=== PATIENT | female | born 1970 | race Caucasian/White ===

== ENCOUNTER 2024-08-18 23:38 | Emergency (ER) | payer OTHER, SELFPAY ==
--- NOTE | 2024-08-18 | ECG_ITS ---
Test Reason : TACHYCARDIA Blood Pressure : / mmHG Vent. Rate : 123 BPM Atrial Rate : 123 BPM P-R Int : 132 ms QRS Dur : 086 ms QT Int : 298 ms P-R-T Axes : 035 -13 021 degrees QTc Int : 426 ms Sinus tachycardia Cannot rule out Anterior infarct , age undetermined Abnormal ECG When compared with ECG of 02-FEB-2019 07:34, Premature ventricular complexes are no longer Present Minimal criteria for Anterior infarct are now Present ST no longer depressed in Inferior leads ST no longer depressed in Anterior leads Referred By: Generic ED Physician Electronically Signed By:Howard Durham
[2024-08-18 23:43] VITALS: BP 128/77; BP 150/90; PULSE 123; PULSE 96; RESP 20; TEMP 36.9; O2SAT 96; O2SAT 98; BMI 29.4
[2024-08-19] LABS: Basophils Percent Auto 0.4 % (0-2); Eosinophils Percent Auto 0.2 % (0-4); Hematocrit 37.7 % (37.0-47.0); Imm Gran Abs Auto 0.02 X10*3/uL (0.00-0.03); Imm Gran Pct Auto 0.2 % (0.0-0.4); Lymphocytes Absolute Auto 1.5 X10*3/uL (1.2-4.9); Lymphocytes Percent Auto 18.4 % (20-40); MANUAL DIFF FLAG NO; Mean Corpuscular HGB Conc 31.8 g/dl (31.0-35.0); Mean Corpuscular Hemoglobin 26.5 pg (27.0-33.0); Mean Corpuscular Volume 83.4 fL (80.0-98.0); Mean Platelet Volume 10.9 fL (9.4-12.3); Monocytes Absolute Auto 0.5 X10*3/uL (0.1-1.2); Monocytes Percent Auto 5.8 % (2-11); Platelet Count 272 X10*3/uL (160-400); Red Blood Count 4.52 X10*6/uL (4.20-5.50); Red Cell Distribution Width 14.5 % (11.0-16.0)
--- NOTE | 2024-08-19 00:15 | ED_ITS ---
HPI - Abdominal Pain General Chief Complaint: Abdominal Pain Stated Complaint: abd pain, diff breathing Time Seen by Provider: 08/19/24 00:13 Source: patient Mode of arrival: EMS Limitations: no limitations History of Present Illness ED Provider: maggi BUSTILLOS narrative: Patient with history of anxiety comes here with nonspecific multiple complaints of diffuse abdominal pain no nausea no vomiting patient is very anxious on arrival Related Data Previous Rx's ?Medication ?Instructions ?Recorded dicyclomine 20 mg tablet 20 mg PO TID #20 tabs 08/19/24 Allergies Allergy/AdvReac Type Severity Reaction Status Date / Time No Known Allergies Allergy Verified 08/18/24 23:47 [No Known Allergies*] Review of Systems Review of Systems Yes all other systems are reviewed and are negative [facility] Social History Social History Smoked in Last 30 Days: No Use of substances other than those prescribed or required for medical reasons: No Advance Directives: No Advance Directives Information Provided: Yes Do you have a plan to hurt others: No Plan Patient : No Physical Exam ED Vital Signs: Vital Signs - 24 hr 08/18/24 23:43 Temperature 98.4 F Pulse Rate 123 H Respiratory Rate 20 Blood Pressure 128/77 Pulse Oximetry 96 Oxygen Delivery Method Room Air BMI result Body Mass Index 29.4 Appearance: Alert. Oriented X3. No acute distress. Very anxious Eyes: No pallor or icterus ENT: Pharynx normal. Oral Mucosa moist Neck: Normal inspection. Neck supple. CVS: Normal heart rate and rhythm. Pulses normal. Respiratory: No respiratory distress. Equal air entry bilateral, no wheezing/rales/rhonchi Abdomen: Soft and nontender. Bowel sounds are present, no mass palpable, no CVA tenderness Skin: Skin warm and dry. Normal skin color. Normal skin turgor. Extremities: No lower extremity edema. No calf tenderness Neuro: Oriented X 3. No motor deficit. Medical Decision Making Medical Decision Making [facility] Narrative: Patient nonspecific complaints anxiety likely the cause workup negative for acute Differential Diagnosis Differential Diagnoses: The differential diagnosis associated with the presentation includes Lab Data [facility] Lab Attestation statement: I reviewed the patient's lab results. 08/18/24 23:52 08/18/24 23:52 Labs: Lab Results 08/18/24 08/19/24 Range/Units 23:52 03:58 WBC 8.0 (4.8-10.8) X10*3/uL RBC 4.52 (4.20-5.50) X10*6/uL Hgb 12.0 (12.0-16.0) g/dl Hct 37.7 (37.0-47.0) % MCV 83.4 (80.0-98.0) fL MCH 26.5 L (27.0-33.0) pg MCHC 31.8 (31.0-35.0) g/dl RDW 14.5 (11.0-16.0) % Plt Count 272 (160-400) X10*3/uL MPV 10.9 (9.4-12.3) fL Immature Gran % (Auto) 0.2 (0.0-0.4) % Neut % (Auto) 75.0 H (45-73) % Lymph % (Auto) 18.4 L (20-40) % [place] % (Auto) 5.8 (2-11) % Eos % (Auto) 0.2 (0-4) % Baso % (Auto) 0.4 (0-2) % Lymph # (Auto) 1.5 (1.2-4.9) X10*3/uL [place] # (Auto) 0.5 (0.1-1.2) X10*3/uL Eos # (Auto) 0.0 (0.0-0.4) X10*3/uL Baso # (Auto) 0.0 (0.0-0.2) X10*3/uL Abs Immat Gran (auto) 0.02 (0.00-0.03) X10*3/uL Absolute Neuts (auto) 6.0 (2.0-8.3) x10*3/uL Absolute Nucleated RBC 0.000 (0.0-0.012) X10*3/uL Nucleated RBC % (auto) 0.0 (0.0-0.2) /100WBC Sodium 139 (135-145) mmol/L Potassium 5.0 (3.3-5.1) mmol/L Chloride 106 (96-108) mmol/L Carbon Dioxide 22 (22-29) mmol/L Anion Gap 16 (12-20) BUN 13 (9-16) mg/dL Creatinine 0.88 (0.5-1.4) mg/dL Estim Creat Clear Calc 78.3 Estimated GFR > 60 Random Glucose 107 (60-115) mg/dL Calcium 9.5 (8.4-10.2) mg/dL Total Bilirubin 0.5 (0.0-1.0) mg/dL AST 75 H (5-31) U/L ALT 32 H (0-31) U/L Alkaline Phosphatase 93 (39-117) U/L Troponin I High Sens 4.6 (<3.5-17.0) ng/L Total Protein 7.9 (6.5-8.0) g/dL Albumin 4.1 (3.5-5.0) g/dL Lipase 21 (8-78) U/L Urine Color Yellow Urine Appearance Clear Urine pH 6.5 (5.0-9.0) Ur Specific [place] >= 1.030 H (1.005-1.025) Urine Protein Negative (Neg-Trace) mg/dL Urine Glucose (UA) Negative (Negative) mg/dL Urine Ketones 80 (Negative) mg/dL Urine Blood Negative (Negative) Urine Nitrite Negative (Negative) Ur Leukocyte Esterase Negative (Negative) Influenza Type A (PCR) NEGATIVE (Negative) Influenza Type B (PCR) NEGATIVE (Negative) RSV RNA Qual (PCR) NEGATIVE (Negative) SARS-CoV-2 RNA (RT-PCR) NEGATIVE (Negative) Independent Interpretation I performed an independent interpretation of an: EKG Interpretation: Sinus tachycardia heart rate 123 beats per minute normal interval normal axis no acute ST-T changes no acute ischemia Medications Administered Discontinued Medications Generic Name Dose Route Start Last Admin Trade Name Freq PRN Reason Stop Dose Admin Dicyclomine HCl 20 mg 08/19/24 00:36 08/19/24 00:56 Dicyclomine Hcl 10 Mg Capsule PO 08/19/24 00:37 20 mg ONCE ONE Administration Sodium Chloride 1,000 mls @ 999 mls/hr 08/19/24 03:00 08/19/24 04:30 Ns IV 08/19/24 04:00 Infused .Q1H1M ONE Infusion Lorazepam 1 mg 08/19/24 00:36 08/19/24 00:56 Lorazepam 2 Mg/Ml Vial IVPUSH 08/19/24 00:37 1 mg STAT STA Administration Metoprolol Tartrate 5 mg 08/19/24 04:01 08/19/24 04:08 Metoprolol Tartrate 5 Mg/5 Ml Vial IVPUSH 08/19/24 04:02 Not Given ONCE ONE Protocol Discharge Plan Discharge Clinical Impression: Anxiety, Irritable bowel syndrome Patient Disposition: Home, Self-Care Instructions: Irritable Bowel Syndrome (ED), Anxiety (ED) Additional Instructions: take your medication for anxiety as prescribed Dicyclomine for abdominal pain Follow with your psychiatrist/PCP Prescriptions: New dicyclomine 20 mg tablet 20 mg PO TID Qty: 20 0RF Interventions: ED Discharge Assessment Last Done: 08/19/24 05:30 Discharge Date/Time: 08/19/24 05:31 Print Language: Bengali
[2024-08-19 00:20] LABS: Troponin-I High Sensitivity 4.6 ng/L (<3.5-17.0)
[2024-08-19 00:21] LABS: Alanine Aminotransferase 32 U/L (0-31); Albumin Level 4.1 g/dL (3.5-5.0); Alkaline Phosphatase 93 U/L (39-117); Anion Gap 16 (12-20); Aspartate Amino Transferase 75 U/L (5-31); Bilirubin Total 0.5 mg/dL (0.0-1.0); Blood Urea Nitrogen 13 mg/dL (9-16); Calcium 9.5 mg/dL (8.4-10.2); Carbon Dioxide 22 mmol/L (22-29); Chloride 106 mmol/L (96-108); Creatinine Clr Calc Pharmacy 78.3; Estimated Glomerular Filt Rate > 60; Glucose Random 107 mg/dL (60-115); Lipase 21 U/L (8-78); Sodium 139 mmol/L (135-145); Total Protein 7.9 g/dL (6.5-8.0)
--- OUTSIDE RECORDS SUMMARY | 2024-08-19 00:44 | XMS_ITS | Continuity of Care Document ---
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 Role Phone Gosia OCONNELL, Randy Cook Primary Care Physician Encounter [facility] Date(s): 11/20/23 - 02/27/24 [facility] [address] [address]- Attending Physician: Not on Staff, Attending MD Allergies, Adverse Reactions, Alerts No Known Allergies Immunizations Given and Recorded Vaccine Date Status Refusal Reason influenza virus vaccine, inactivated 07/24/23 Keith rded influenza virus vaccine, inactivated 06/30/22 Keith rded influenza virus vaccine, inactivated 07/04/21 Keith rded influenza virus vaccine, inactivated 07/03/19 Keith rded influenza virus vaccine, inactivated 06/23/18 Keith rded influenza virus vaccine, inactivated 06/08/17 Keith rded influenza virus vaccine, inactivated 06/14/16 Keith rded influenza virus vaccine, inactivated 1 06/27/15 Re corded influenza virus vaccine, inactivated 2 06/20/12 Gi rob influenza virus vaccine, inactivated 3 12/07/08 Gi rob zoster vaccine, inactivated 09/06/22 Recorded zoster vaccine, inactivated 04/13/22 Recorded [id number] bivalent booster vax 06/30/22 Recorded SARS-CoV-2 (COVID-19) mRNA BNT-162b2 vac 09/18/21 Given SARS-CoV-2 (COVID-19) mRNA-1273 vaccine 03/14/21 R ecorded SARS-CoV-2 (COVID-19) mRNA-1273 vaccine 02/14/21 R ecorded pneumococcal 23-valent vaccine 01/31/19 Recorded tetanus/diphtheria/pertussis, acel(Tdap) 02/14/17 Given Tet/Diphth/Acel, Pertussis (oldterm) 4 12/07/08 Gi rob 1Result Comment: [09/26/2015] ADMINISTERED AT [facility] 2Admin Note: VIS GIVEN-DATED 04/28/12 Administered at [facility] 3Admin Note: VIS GIVEN 4Admin Note: VIS GIVEN Medications .2% Nifedipine in 5% lidocaine .2% Nifedipine in 5% lidocaine, See Instructions, # 60 Gm, Refills 1, Tot. Refills 1, Maintenance, Apply pea size amount 3-4 times per day, 05/27/23 16:01:00 EDT, Supply, 167.6, cm, 05/27/23 15:30:00EDT, Height Start Date: 05/27/23 Status: Ordered benztropine 0.5 mg oral tablet TAKE 1 TABLET BY MOUTH TWICE A DAY Start Date: 05/08/21 Status: Ordered bisacodyl 5 mg oral delayed release tablet 1 tablet = 5 mg, By Mouth, Daily, PRN as needed for constipation, # 50 tablet, 1 Refills, Maintenance, 02/18/23 16:01:00 EDT, CR Tablet, [id number], Partial fill upon patient request if the prescription is for a schedule II opioid drug., 167.6... Start Date: 02/18/23 Status: Ordered FLUoxetine 20 mg oral capsule 20 mg, 1, capsule, By Mouth, Daily, # 30 capsule, Refills 0, Maintenance, 05/08/21 10:53:00 EDT, Partial fill upon patient request if the prescription is for a schedule II opioid drug. Start Date: 05/08/21 Status: Ordered fluticasone 50 mcg/inh nasal spray See Instructions, USE 2 SPRAYS IN EACH NOSTRIL DAILY, # 48 mL, 1 Refills, Maintenance, 08/24/22 16:57:00 EDT, [id number], 90, USE 2 SPRAYS IN EACH NOSTRIL DAILY, 167.6, cm, 07/23/22 13:04:00 EDT, Height Start Date: 08/24/22 Status: Ordered gabapentin 100 mg oral capsule 2, capsule, By Mouth, Daily at bedtime, # 60 capsule, Refills 11, Maintenance, 06/25/23 12:25:00 EDT, Route to Pharmacy Electronically, [id number], 167.6, cm, 05/27/23 15:30:00 EDT, Height Start Date: 06/25/23 Status: Ordered Milk of Magnesia 8% oral suspension 30 mL = 2.4 Gm, By Mouth, Daily at bedtime, PRN for constipation, # 300 mL, 1 Refills, Maintenance,02/18/23 16:01:00 EDT, Suspension, [id number], Partial fill upon patient request if the prescription is for a schedule II opioid drug., 167.6,... Start Date: 02/18/23 Status: Ordered omeprazole 40 mg oral enteric coated capsule 1 capsule, By Mouth, 2 times a day, # 180 capsule, 0 Refills, Maintenance, 12/05/23 8:29:00 EST, [id number], 167.6, cm, 08/29/23 11:50:00 EDT, Height, 77.2, kg, 07/25/23 13:46:00 EDT, Dry Weight Start Date: 12/05/23 Status: Ordered prazosin 1 mg oral capsule 1 mg, 1, capsule, By Mouth, Daily at bedtime, Refills 0, Maintenance, 05/08/21 10:52:00 EDT, Partial fill upon patient request if the prescription is for a schedule II opioid drug. Start Date: 05/08/21 Status: Ordered risperiDONE 3 mg oral tablet 3 mg, 1, tablet, By Mouth, Daily, # 30 tablet, Refills 0, Maintenance, 05/08/21 10:52:00 EDT, Partial fill upon patient request if the prescription is for a schedule II opioid drug. Start Date: 05/08/21 Status: Ordered Senna-Time 8.6 mg oral tablet 1 OR 2 TABLETS, By Mouth, Daily at bedtime, PRN NEEDED FOR CONSTIPATION, # 60 tablet, 5 Refills,Maintenance, 05/01/23 9:50:00 EDT, [id number], 167.6, cm, 02/18/23 15:20:00 EDT, Height Start Date: 05/01/23 Status: Ordered simvastatin 20 mg oral tablet 1, tablet, By Mouth, Daily at bedtime, # 90 tablet, Refills 1, Maintenance, 03/28/23 11:22:00 EDT, Route to Pharmacy Electronically, [id number], 167.6, cm, 02/18/23 15:20:00 EDT, Height Start Date: 03/28/23 Status: Ordered Problem List Condition Confirmation Course Effective Dates Status H ealth Status Informant Allergic rhinitis Confirmed Active Bilateral tubal ligation Confirmed 1999 Active Chronic constipation Confirmed Active Depression Confirmed Active 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, 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 Confirmed Active Diagnostic colonoscopy Confirmed Active Continuous epigastric pain Confirmed Active Family history of cancer: mom's sister, cancer, in 30s, unknown type Confirmed Active Family history of ovarian cancer: Mom's mom of this in her 60s 1 Confirmed Active Acid reflux disease 2 Confirmed Active Gastroparesis 3 Confirmed Active Glucose intolerance Confirmed Active H/O heartburn Confirmed Active Hyperlipidemia-isola justin without other CV risk Confirmed Active Intestinal metaplasia of gastric mucosa 4 Confirmed Active LBP - Low back pain Confirmed Active Lump or Mass in Breast 5 Confirmed 02/06/11 Active Obesity due to excess calories Confirmed Active Painful rectal bleeding 6 Confirmed 2011 Active *[facility]/CP- [facility] [phone][facility], active care coordination Confirmed Active Premature ovarian failure Confirmed Active 1Mother tested for BRCA1 and BRCA2, both negative. 2S/p EGD in 08/12 for heartburn and dysphagia, which was normal. Per GI, likely functional/nervous disorder. 3on gastric emptying study in 07/16 4on EGD in 09/15. Advise repeat EGD in 6 months for intestinal metaplasia mapping. - mammo negative; seen by CBC; Breast, left, 1:30 o???clock, 7.5 cm from nipple, ultrasoundguided core biopsy: - Benign breast tissue with dense stroma. 6colonoscopy 2012: normal/due again age 49 per report in [facility] Social History Social History Type Response Smoking Status Never smoker entered on: 12/31/13 Sex Female Patient Care team information Care Team Personnel Name: Randy Elise MD Position: [facility] Physician - Primary Care Member Role: PCP Address: Address: [address] [place] [address] [place] [address]- Care Team Related Persons Name: SUDHIR SOSA Address: home [address] [address] Name: ZEYNEP SOSA Address: home [address] [place] [address] Name: ZEYNEP SOSA Address: [place] [address] Name: NONE, PT STATES
--- OUTSIDE RECORDS SUMMARY | 2024-08-19 00:44 | XMS_ITS | Continuity of Care Document ---
Author Organization [facility] Address [address] [place] [address]- Care Team Providers Care Social Welfare Research Worker Name Role Phone Gosia OCONNELL, Randy Coko Primary Care Physician [facility]): [facility] - 08/06/24 [facility] [address] [place], [place] [phone] Attending Physician: Admtr, Jocelyn Allergies, Adverse Reactions, Alerts No Known Allergies Immunizations Given and Recorded Vaccine Date Status Refusal Reason influenza virus vaccine, inactivated 07/24/23 Keith rded influenza virus vaccine, inactivated 06/30/22 Keith rded influenza virus vaccine, inactivated 07/04/21 Kieth rded influenza virus vaccine, inactivated 07/03/19 Keith rded influenza virus vaccine, inactivated 06/23/18 Keith rded influenza virus vaccine, inactivated 06/08/17 Keith rded influenza virus vaccine, inactivated 06/14/16 Keith rded influenza virus vaccine, inactivated 1 06/27/15 Re corded influenza virus vaccine, inactivated 2 06/20/12 Gi rob influenza virus vaccine, inactivated 3 12/07/08 Gi rob zoster vaccine, inactivated 09/06/22 Recorded zoster vaccine, inactivated 04/13/22 Recorded [id number] bivalent booster vax 06/30/22 Recorded SARS-CoV-2 (COVID-19) mRNA BNT-162b2 vac 09/18/21 Given SARS-CoV-2 (COVID-19) mRNA-1273 vaccine 03/14/21 R ecorded SARS-CoV-2 (COVID-19) mRNA-1273 vaccine 02/14/21 R ecorded pneumococcal 23-valent vaccine 01/31/19 Recorded tetanus/diphtheria/pertussis, acel(Tdap) 02/14/17 Given Tet/Diphth/Acel, Pertussis (oldterm) 4 12/07/08 Gi rob 1Result Comment: [09/26/2015] ADMINISTERED AT [facility] 2Admin Note: VIS GIVEN-DATED 04/28/12 Administered at [facility] 3Admin Note: VIS GIVEN 4Admin Note: [...] Refills, Maintenance, 02/18/23 16:01:00 EDT, CR Tablet, [facility]/pharmacy #[id number], Partial fill upon patient request if the prescription is for a schedule II opioid drug., 167.6... Start Date: 02/18/23 Status: Ordered docusate sodium 100 mg oral capsule 100 mg, 1, capsule, By Mouth, 2 times a day, take twice a day to prevent constipation., # 60 capsule, Refills 11, Tot. Refills 11, Maintenance, 06/22/24 14:31:00 EDT, Route to Pharmacy Electronically, [facility]/pharmacy #[id number], Partial fill upon patient requ... Start Date: 06/22/24 Status: Ordered esomeprazole 40 mg oral enteric coated capsule 1 capsule = 40 mg, By Mouth, 2 times a day, Stop Omeprazole. Take on an emoty stomach., # 60 capsule, 6 Refills, Maintenance, 08/06/24 14:33:00 EDT, CR Capsule, [facility]/pharmacy #[id number], Partial fill upon patient request if the prescription is for a schedul... Start Date: 08/06/24 Status: Ordered FLUoxetine 20 mg oral capsule [...] Refills, Maintenance, 08/24/22 16:57:00 EDT, [id number], 90, USE 2 SPRAYS IN EACH NOSTRIL DAILY, 167.6, cm, 07/23/22 13:04:00 EDT, Height Start Date: 08/24/22 Status: Ordered gabapentin 100 mg oral capsule 2, capsule, By Mouth, Daily at bedtime, # 60 capsule, Refills 11, Maintenance, 06/25/23 12:25:00 EDT, Route to Pharmacy Electronically, [id number], 167.6, cm, 05/27/23 15:30:00 EDT, Height Start Date: 06/25/23 Status: Ordered Linzess 145 mcg oral capsule 1 capsule = 145 mcg, By Mouth, Daily, # 30 capsule, 6 Refills, Maintenance, 08/06/24 14:32:00 EDT, Capsule, [id number], Partial fill upon patient request if the prescription is for a scheduleII opioid drug., 167.6, cm, 08/06/24 14:22:00 EDT,... Start Date: 08/06/24 Status: Ordered Metamucil 3.4 gm/5.2 gm oral powder for reconstitution = 3.4 Gm, By Mouth, Daily, dissolve in 8 oz of fluid drink once a day to prevent constipation, # 570 Gm, 11 Refills, Maintenance, 06/22/24 14:31:00 EDT, [id number], Partial fill upon patient request if the prescription is for a schedule II op... Start Date: 06/22/24 Status: Ordered Milk of Magnesia 8% oral suspension 30 mL = 2.4 Gm, By Mouth, Daily at bedtime, PRN for constipation, # 300 mL, 1 Refills, Maintenance,02/18/23 16:01:00 EDT, Suspension, [id number], Partial fill upon patient request if the prescription is for a schedule II opioid drug., 167.6,... Start Date: 02/18/23 Status: Ordered omeprazole 40 mg oral enteric coated capsule 1 capsule, By Mouth, 2 times a day, # 180 capsule, 1 Refills, Maintenance, 06/22/24 14:37:00 EDT, [facility]/pharmacy #[id number], 167.6, cm, 06/22/24 13:58:00 EDT, Height, 77.2, kg, 07/25/23 13:46:00 EDT, Dry Weight Start Date: 06/22/24 Status: Ordered prazosin 1 mg oral capsule [...] 60 tablet, 5 Refills,Maintenance, 05/01/23 9:50:00 EDT, [facility] ST[id number], 167.6, cm, 02/18/23 15:20:00 EDT, Height Start Date: 05/01/23 Status: Ordered simvastatin 20 mg oral tablet 1, tablet, By Mouth, Daily at bedtime, # 90 tablet, Refills 1, Tot. Refills 1, Maintenance, 07/29/24 14:20:00 EDT, Route to Pharmacy Electronically, [facility]/pharmacy #[id number], 167.6, cm, 07/24/24 14:25:00 EDT, Height, 77.2, kg, 07/25/23 13:46:00 EDT, Dry Weight Start Date: 07/29/24 Status: Ordered Suprep Bowel Prep Kit oral liquid 177 mL, By Mouth, Once, Take the first 6 oz bottle the evening before colonoscopy, and the second 6oz bottle the morning of colonoscopy., # 354 mL, 0 Refills, Soft Stop, 08/06/24 14:44:00 EDT, [id number], Partial fill upon patient request if... 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 Active Diagnostic colonoscopy Confirmed Active Continuous epigastric pain Confirmed Active Family history of cancer: mom's sister, cancer, in 30's, unknown type Confirmed Active Family history of ovarian cancer: Mom's mom of this in her 60s 1 Confirmed Active Acid reflux disease 2 Confirmed Active GERD (gastroesophageal reflux disease) Confirmed Active Gastroparesis 3 Confirmed Active Glucose intolerance Confirmed Active H/O heartburn Confirmed Active Hyperlipidemia-isola justin without other CV risk Confirmed Active Intestinal metaplasia of gastric mucosa 4 Confirmed Active LBP - Low back pain Confirmed Active Lump or Mass in Breast 5 Confirmed 02/06/11 Active Obesity due to excess calories Confirmed Active Painful rectal bleeding 6 Confirmed 2011 Active [phone], active care coordination Confirmed Active Premature ovarian [...] Never smoker entered on: 12/31/13 Sex Female Note * Tomasa Brito: PERFORM, SIGN, VERIFY Event Display: Patient Education/Instruction Authored Date: [id number] [facility] Clinical Summary Person Information Visit Date 10/01/2018 10:20 AM Name SRINATH SOSA Age 48 Years 1970 12:00 AM PCP Randy Elise MD PCP Sex Female Race White Ethnicity Non-/Non- Language Mohawk You can now view a summary of your hospital visit from the comfort of your home through a free online portal called [employer] is a website that allows you to securely view your medical information including discharge summary, medications and follow-up visits. You can also send a secure electronic message to your doctor???s office to request appointments, renew medicationsor just ask a question. You can enroll at [email or web address] or register during your next office visit. Smoking can increase your chances of developing chronic health problems and can cause harmful effects to other family members in your house. If you smoke, you are strongly encouraged to quit. Please call the [employer] Smokers??? Helpline at 1-680-PRPVNOW (or ) or log on to [email or web address] for more information. The National Suicide Prevention Hotline is available 20/05 if you or someone you know needs to find a reason to keep living. By calling 8-234-152-xmzz (3435) you'll be connected to a skilled, trained counselor at a crisis center in your area. Reason for Visit: Allergy Info: No Known Medication Allergies Smoking Status Never smoker Vital Signs Height Weight BMI Blood Pressure / Temperature Pulse Rate Respiratory Rate 02 Sat Mode of Delivery / Medication Information Albuterol (Ventolin HFA 108 mcg/inh inhalation aerosol with adapter) 1 puff(s) Inhalation 4 times aday as needed for wheezing. Refills: 1. Cetirizine (ZyrTEC 10 mg oral tablet) 1 tab(s) Oral Daily as needed allergies for 30 Days. Refills:4. Diclofenac Topical (diclofenac 1% topical gel) 1 wayne Topically 4 times a day as needed for pain. apply to area of pain. Refills: 0. Fluoxetine (FLUoxetine 10 mg oral capsule) take 1 capsule by mouth once daily. Fluticasone Nasal (Flonase 50 mcg/inh nasal spray) 2 spray(s) Nares, Both twice a day. Refills: 0. Omeprazole (omeprazole 20 mg oral enteric coated capsule) 1 capsule Oral twice a day for 30 Days. Refills: 3. Phenylephrine Topical (Preparation H 0.25% rectal suppository) 1 unit Per rectum Daily for 7 Days. Refills: 1. Senna (Senna 8.6 mg oral tablet) 2 tab(s) Oral Daily at Bedtime as needed for constipation. Refills: 1. Simvastatin (simvastatin 20 mg oral tablet) 1 tab(s) Oral Daily at Bedtime for 30 Days. Refills: 11. Trazodone (traZODone 50 mg oral tablet) 1 tab(s) Oral Daily at Bedtime. Refills: 0. Trazodone (traZODone 50 mg oral tablet) take 1 tablet by mouth at bedtime if needed MAY REPEAT DOSEONE TIME IF NEEDED FOR INSOMNIA. Future Orders No future orders Orders Completed this Visit No visit orders documented Problem List Problem Painful rectal bleeding Lump or Mass in Breast Bilateral tubal ligation Allergic rhinitis Hyperlipidemia Glucose intolerance Developmental delay LBP - Low back pain Depression Obesity due to excess calories Premature ovarian failure Chronic constipation Diagnostic colonoscopy Epigastric pain H/O: Disorder Gastroesophageal reflux disease Family history of malignant neoplasm of ovary Family history of cancer Diagnosis Procedures No Procedures Documented If the following labs have been performed in the last year, the most recent result is displayed below. Diagnostic Results Lab Result Value Date Lead Hemoglobin A1C LDL HDL Triglycerides Total Cholesterol Disclaimer: The information provided is of a general nature and is intended to be used in conjunction with the recommendations and advice of your health care practitioner. Every effort has been made to ensure that the information provided is accurate and complete at the time it is provided to you however, as your needs change, or, as new information becomes available, different or additional instructions may be required. If you have questions, please consult with your primary care provider or pharmacist, as appropriate. This information is not intended to serve as substitution for assessment and evaluation by a qualified health care provider. If you do not have a primary care provider, you may find a [facility] provider by calling [facility] at [phone]. For information about the plan of care including goals and instructions for your diagnosis, please see the patient education orders section of this document. Patient Visit Summary: Future Appointments: Type Location Start [facility] Screening Mammo BB RAD 10/27/2018 3:15 PM 10/27/2018 3:30 PM Pending Follow-Up Instructions Patient Education Materials Additional Instructions: Patient Care team information Care Team Personnel Name: Gosia OCONNELL, Randy Cook Position: S Physician - Primary Care Member Role: PCP Address: Address: [address] [place] [address] [place] [address]- Care Team Related Persons Name: SUDHIR SOSA Address: home [address] [place] [address] [address] [place] [address] Name: ZEYNEP SOSA Address: home [address] [place] [address] Name: ZEYNEP SOSA Address: [place] [address] Name: NONE, PT STATES
--- OUTSIDE RECORDS SUMMARY | 2024-08-19 00:44 | XMS_ITS | Continuity of Care Document ---
Author Organization [facility] Address [address] [place] [address]- Care Team Providers Care Continuing Education Specialist Name Role Phone Gosia OCONNELL, Randy Cook Primary Care Physician [facility]20 - 01/19/21 [facility] [address] [place], [place] [address] Allergies, Adverse Reactions, Alerts No Known Medication Allergies Immunizations Given and Recorded Vaccine Date Status Refusal Reason tetanus/diphtheria/pertussis, acel(Tdap) 02/14/17 Given influenza virus vaccine, inactivated 1 06/27/15 Re corded influenza virus vaccine, inactivated 2 06/20/12 Gi rob influenza virus vaccine, inactivated 3 12/07/08 Gi rob Tet/Diphth/Acel, Pertussis (oldterm) 4 12/07/08 Gi rob 1Result Comment: [09/26/2015] ADMINISTERED AT [employer] 2Admin Note: VIS GIVEN-DATED 04/28/12 Administered at [facility] 3Admin Note: VIS GIVEN 4Admin Note: VIS GIVEN Medications benztropine 0.5 mg oral tablet 0.5 mg, 1, tablet, By Mouth, 2 times a day, # 60 tablet, Refills 1, Tot. Refills 1, Maintenance, 05/11/19 14:23:19 EDT, Route to Pharmacy Electronically, [id number], [facility]/pharmacy #[id number] Start Date: 05/11/19 Stop Date: 07/10/19 Status: Ordered diclofenac 1% topical gel 1 application, Topically, 4 times a day, # 100 Gm, 0 Refills, Maintenance, 05/11/19 14:14:25 EDT, Gel, 1 application Topically 4 times a day Start Date: 05/11/19 Status: Ordered FLUoxetine 10 mg oral capsule 10 mg, 1, capsule, By Mouth, Daily, Take in addition to Fluoxetine 20mg daily (total =30mg daily).,# 30 capsule, Refills 5, Tot. Refills 5, 09/14/19 13:00:46 EST, Route to Pharmacy Electronically, [id number], [facility]/pharmacy #[id number] Start Date: 09/14/19 Status: Ordered FLUoxetine 20 mg oral capsule 20 mg, 1, capsule, By Mouth, Daily, Take with Fluoxetine 10mg capsule (total dose = 30mg daily)., #30 capsule, Refills 5, Tot. Refills 5, Maintenance, 09/14/19 13:00:56 EST, Route to Pharmacy Electronically, [id number], [facility]... Start Date: 09/14/19 Status: Ordered LORazepam 0.5 mg oral tablet 1 tablet = 0.5 mg, By Mouth, 3 times a day, PRN for anxiety, 0 Refills, Maintenance, 02/16/19 12:54:45 EDT, Tablet Start Date: 02/16/19 Status: Ordered MiraLax oral powder for reconstitution = 17 Gm, By Mouth, Daily, dissolve in water before taking, # 527 Gm, 1 Refills, Maintenance, 05/11/19 14:11:05 EDT, REC Powder, 17 Gm By Mouth Daily,Instr:dissolve in water before taking Start Date: 05/11/19 Status: Ordered NuLYTELY with Flavor Packs oral powder for reconstitution See Instructions, 240 mL By Mouth Every 15 minutes, # 4,000 mL, 0 Refills, Maintenance, 08/10/20 12:23:00 EDT, [id number], 240 mL By Mouth Every 15 minutes, 165.1, cm, 07/12/20 15:23:00 EDT, Height, 63.1, kg, 08/21/19 12:21:00 EDT, Dry Weight Start Date: 08/10/20 Status: Ordered NuLYTELY with Flavor Packs oral powder for reconstitution See Instructions, 1 glass every 15-30 minutes until finished, # 4,000 mL, 0 Refills, Maintenance, 12/17/19 9:00:00 EST, [facility]/pharmacy #[id number], 1 glass every 15-30 minutes until finished, 165.1, cm, 12/14/19 15:03:00 EST, Height, 63.1, kg, 08/21/19 12:21:... Start Date: 12/17/19 Status: Ordered NuLYTELY with Flavor Packs oral powder for reconstitution See Instructions, 240 mL By Mouth Every 15 minutes, # 4,000 mL, 0 Refills, Maintenance, 12/10/19 16:20:00 EST, [facility]/pharmacy #[id number], 240 mL By Mouth Every 15 minutes, 167.6, cm, 12/10/19 12:18:00 EST, Height, 63.1, kg, 08/21/19 12:21:00 EDT, Dry Weight Start Date: 12/10/19 Status: Ordered omeprazole 40 mg oral enteric coated capsule 1 capsule = 40 mg, By Mouth, 2 times a day, # 180 capsule, 1 Refills, Maintenance, 10/12/20 8:13:00EST, EC Capsule, [facility]/pharmacy #[id number], 167.6, cm, 08/23/20 12:36:00 EDT, Height, 63.1, kg, 08/21/19 12:21:00 EDT, Dry Weight Start Date: 10/12/20 Stop Date: 04/10/21 Status: Ordered Preparation H 0.25% rectal suppository 1 unit, Rectally, Daily, # 7 units, 1 Refills, Maintenance, 03/04/18 16:07:27 EDT, 1 unit Rectally Daily,x7 days Start Date: 03/04/18 Stop Date: 03/18/18 Status: Ordered risperiDONE 3 mg oral tablet See Instructions, TAKE 1/2 TABLET BY MOUTH TWICE A DAY, # 30 tablet, Refills 2, Tot. Refills 2, Maintenance, 09/14/19 13:00:55 EST, Instructions Replace Required Details, Route to Pharmacy Electronically, [id number], [facility]/phar... Start Date: 09/14/19 Status: Ordered simvastatin 20 mg oral tablet 20 mg, 1, tablet, By Mouth, Daily at bedtime, for 90 days, # 90 tablet, Refills 0, Tot. Refills 0, Hard Stop 03/12/21 9:06:00 EDT, 12/12/20 9:06:00 EST, Route to Pharmacy Electronically, [facility]/pharmacy#[id number], 167.6, cm, 08/23/20 12:36:00 EDT, Height, 63... Start Date: 12/12/20 Stop Date: 03/12/21 Status: Ordered Ventolin HFA 108 mcg/inh inhalation aerosol with adapter 1 puffs, Inhalation, 4 times a day, PRN for wheezing, # 8 Gm, 1 Refills, Maintenance, 05/04/20 15:51:00 EDT, Aerosol, [facility]/pharmacy #[id number], 165.1, cm, 04/07/20 10:09:00 EDT, Height, 63.1, kg, 08/21/19 12:21:00 EDT, Dry Weight Start Date: 05/04/20 Status: Ordered ZyrTEC 10 mg oral tablet 1 tablet = 10 mg, By Mouth, Daily, PRN allergies, # 30 tablet, 4 Refills, Maintenance, 03/04/18 15:52:09 EDT, Tablet Start Date: 03/04/18 Stop Date: 08/01/18 Status: Ordered Problem List Condition Effective Dates Status Health Status Inform ant Allergic rhinitis(Confirmed) Active Bilateral tubal ligation(Confirmed) 1999 Active Chronic constipation(Confirmed) Active Depression(Confirmed) Active Developmental delay- mild--l jose independently, 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) Active Diagnostic colonoscopy(Confirmed) Active Continuous epigastric pain(Confirmed) Active Family history of cancer: mo dayanara's sister, cancer, in 30's, unknown type(Confirmed) Active Family history of ovarian ca ncer: Mom's mom of this in her 60s(Confirmed) 1 Active Acid reflux disease(Confirmed) 2 Active Gastroparesis(Confirmed) 3 Active Glucose intolerance(Confirmed) Active H/O heartburn(Confirmed) Active Hyperlipidemia-isolated with out other CV risk(Confirmed) Active Intestinal metaplasia of gas tric mucosa(Confirmed) 4 Active LBP - Low back pain(Confirmed) Active Lump or Mass in Breast(Confirmed) 02/06/11 Active Obesity due to excess calories(Confirmed) Active Painful rectal bleeding(Confirmed) 2011 Active Premature ovarian failure(Confirmed) Active 1Mother tested for BRCA1 and BRCA2, [...] Benign breast tissue with dense stroma. 6colonoscopy 2011: normal/due again age 49 per report in [facility] Social History Social History Type Response Smoking Status Never smoker entered on: 12/31/13 Sex Female
--- OUTSIDE RECORDS SUMMARY | 2024-08-19 00:44 | XMS_ITS | Continuity of Care Document ---
Author Organization [facility] Address [address] [place] [address]- Care Team Providers Care Public Relations Sales Marketing Name Role Phone Gosia OCONNELL, Randy Cook Primary Care Physician [phone] [facility] 03[facility]12[facility]22 - 04/11/22 [facility] [address] [place], [place] [address] Allergies, Adverse Reactions, Alerts No Known Medication Allergies Immunizations Given and Recorded Vaccine Date Status Refusal Reason SARS-CoV-2 (COVID-19) mRNA BNT-162b2 vac 09/18/21 Given influenza virus vaccine, inactivated 07/04/21 Keith rded influenza virus vaccine, inactivated 1 06/27/15 Re corded influenza virus vaccine, inactivated 2 06/20/12 Gi rob influenza virus vaccine, inactivated 3 12/07/08 Gi rob SARS-CoV-2 (COVID-19) mRNA-1273 vaccine 03/14/21 R ecorded SARS-CoV-2 (COVID-19) mRNA-1273 vaccine 02/14/21 R ecorded tetanus/diphtheria/pertussis, acel(Tdap) 02/14/17 Given Tet/Diphth/Acel, Pertussis (oldterm) 4 12/07/08 Gi rob 1Result Comment: [09/26/2015] ADMINISTERED AT [employer] 2Admin Note: VIS GIVEN-DATED 04/28/12 Administered at [facility] 3Admin Note: VIS GIVEN 4Admin Note: VIS GIVEN Medications benztropine 0.5 mg oral tablet TAKE 1 TABLET BY MOUTH TWICE A DAY Start Date: 05/08/21 Status: Ordered FLUoxetine 20 mg oral capsule 20 mg, 1, capsule, By Mouth, Daily, # 30 capsule, Refills 0, Maintenance, 05/08/21 10:53:00 EDT, Partial fill upon patient request if the prescription is for a schedule II opioid drug. Start Date: 05/08/21 Status: Ordered fluticasone 50 mcg/inh nasal spray See Instructions, USE 2 SPRAYS IN EACH NOSTRIL DAILY, # 48 mL, 1 Refills, [id number], 90, USE 2 SPRAYS IN EACH NOSTRIL DAILY, 167.6, cm, 11/02/21 9:05:00 EST, Height Start Date: 12/11/21 Status: Ordered gabapentin 100 mg oral capsule 200 mg, 2, capsule, By Mouth, Daily at bedtime, # 60 capsule, Refills 3, Tot. Refills 3, Maintenance, 02/05/22 17:16:00 EDT, Route to Pharmacy Electronically, [facility]/pharmacy #[id number], Dose INCREASED 02/05/22. Please disregard last prescription, 167.6, cm, 0... Start Date: 02/05/22 Status: Ordered omeprazole 40 mg oral enteric coated capsule 1 capsule, By Mouth, 2 times a day, # 180 capsule, 0 Refills, [id number], 167.6, cm, 01/25/22 9:20:00 EDT, Height Start Date: 03/23/22 Status: Ordered prazosin 1 mg oral capsule [...] PRN NEEDED FOR CONSTIPATION, # 60 tablet, 1 Refills,[id number], 167.6, cm, 01/25/22 9:20:00 EDT, Height Start Date: 03/25/22 Status: Ordered simvastatin 20 mg oral tablet 1, tablet, By Mouth, Daily at bedtime, # 90 tablet, Refills 1, Route to Pharmacy Electronically, [id number], 167.6, cm, 01/25/22 9:20:00 EDT, Height Start Date: 03/23/22 Status: Ordered Problem List Condition Effective Dates Status Health Status Inform ant Allergic rhinitis(Confirmed) Active Bilateral tubal ligation(Confirmed) 1999 Active Chronic constipation(Confirmed) Active Depression(Confirmed) Active Developmental delay- mild--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 independently, 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) Active Diagnostic colonoscopy(Confirmed) Active Continuous epigastric pain(Confirmed) Active Family history of cancer: mo m's sister, cancer, in 30's, unknown type(Confirmed) Active Family history of ovarian ca ncer: Mom's mom of this in her 60s(Confirmed) 1 Active Acid reflux disease(Confirmed) 2 Active Gastroparesis(Confirmed) 3 Active Glucose intolerance(Confirmed) Active H/O heartburn(Confirmed) Active Hyperlipidemia-isolated with out other CV risk(Confirmed) Active Intestinal metaplasia of gas tric mucosa(Confirmed) 4 Active LBP - Low back pain(Confirmed) Active Lump or Mass in Breast(Confirmed) 5 02/06/11 Active Obesity due to excess calories(Confirmed) [...]
--- OUTSIDE RECORDS SUMMARY | 2024-08-19 00:45 | XMS_ITS | Continuity of Care Document ---
Author Organization [facility] Address [address] [place] [address]- Care Team Providers Care Remote Control Mirror Installer Name Role Phone Randy Elise MD Primary Care Physician Encounter [facility] Date(s): 11/16/21 - 12/21/21 [facility] [address] [place] [address]- Attending Physician: Randy Elise MD Admitting Physician: Randy Elise MD Allergies, Adverse Reactions, Alerts No Known Medication [...] Gi rob 1Result Comment: [09/26/2015] ADMINISTERED AT [employer] 2Admin Note: VIS GIVEN-DATED 04/28/12 Administered at [facility] 3Admin Note: VIS GIVEN 4Admin Note: [...] NOSTRIL DAILY, # 48 mL, 1 Refills, [facility], 90, USE 2 SPRAYS IN EACH NOSTRIL DAILY, 167.6, cm, 11/02/21 9:05:00 EST, Height Start Date: 12/11/21 Status: Ordered omeprazole 40 mg oral enteric coated capsule 1 capsule, By Mouth, 2 times a day, # 180 capsule, 1 Refills, [facility]192, 167.6, cm, 09/29/21 11:56:00 EST, Height Start Date: 10/16/21 Status: Ordered prazosin 1 mg oral capsule 1 mg, 1, capsule, By Mouth, Daily at bedtime, Refills 0, Maintenance, 05/08/21 10:52:00 EDT, Partial fill upon patient request if the prescription is for a schedule II opioid drug. Start Date: 05/08/21 Status: Ordered psyllium 3.4 g/5.4 g oral powder for reconstitution = 1.7 Gm, By Mouth, Daily, # 283 Gm, 1 Refills, Maintenance, 03/28/21 9:37:00 EDT, REC Powder, [facility]/pharmacy #[id number], Partial fill upon patient request if the prescription is for a schedule II opioid drug., 167.6, cm, 03/28/21 8:40:00 EDT, Height, 63.1,... Start Date: 03/28/21 Status: Ordered risperiDONE 3 mg oral tablet 3 mg, 1, tablet, By Mouth, Daily, # 30 tablet, Refills 0, Maintenance, 05/08/21 10:52:00 EDT, Partial fill upon patient request if the prescription is for a schedule II opioid drug. Start Date: 05/08/21 Status: Ordered Senna 8.6 mg oral tablet 1 or 2 tablets, By Mouth, Daily at bedtime, PRN, # 60 tablet, Refills 1, Tot. Refills 1, Maintenance, Constipation, 09/18/21 13:57:00 EST, Route to Pharmacy Electronically, [facility]/pharmacy #0843 Tablet,Partial fill upon patient request if the prescripti... Start Date: 09/18/21 Status: Ordered SENNA 8.6 MG TABLET SENNA 8.6 MG TABLET, 1 OR 2 TABLETS, By Mouth, Daily at bedtime, PRN, # 60 tablet, 1 Refills, 167.6, cm, 11/02/21 9:05:00 EST, Height Start Date: 12/11/21 Status: Ordered simvastatin 20 mg oral tablet 1, tablet, By Mouth, Daily at bedtime, # 90 tablet, Refills 1, Route to Pharmacy Electronically, [facility], 167.6, cm, 11/02/21 9:05:00 EST, Height Start Date: 11/03/21 Status: Ordered Ventolin HFA 108 mcg/inh inhalation aerosol with adapter 1 puffs, Inhalation, 4 times a day, PRN for wheezing, # 8 Gm, 1 Refills, Maintenance, 05/04/20 15:51:00 EDT, Aerosol, [facility]/pharmacy #[id number], 165.1, cm, 04/07/20 10:09:00 EDT, Height, 63.1, kg, 08/21/19 12:21:00 EDT, Dry Weight Start Date: 05/04/20 Status: Ordered Problem List Condition Effective Dates [...]
--- OUTSIDE RECORDS SUMMARY | 2024-08-19 00:45 | XMS_ITS | Continuity of Care Document ---
Author Organization [facility] Address [address] [place] [address]- Care Team Providers Care Hematology Technologist Name Role Phone Gosia OCONNELL, Randy Cook Primary Care Physician [facility] Date[facility]s): 07/23/22 - 08/22/22 [facility] [address] [place] [address]- Attending Physician: Admtr, Ar8 Allergies, Adverse Reactions, Alerts No Known Medication Allergies Immunizations Given and Recorded Vaccine Date Status Refusal Reason influenza virus vaccine, inactivated 06/30/22 Keith rded [...] 3 12/07/08 Gi rob zoster vaccine, inactivated 04/13/22 Recorded SARS-CoV-2 (COVID-19) mRNA BNT-162b2 vac 09/18/21 Given SARS-CoV-2 (COVID-19) mRNA-1273 vaccine 03/14/21 R ecorded SARS-CoV-2 (COVID-19) mRNA-1273 vaccine 02/14/21 R ecorded pneumococcal 23-valent vaccine 01/31/19 Recorded tetanus/diphtheria/pertussis, acel(Tdap) 02/14/17 Given Tet/Diphth/Acel, Pertussis (oldterm) 4 12/07/08 Gi rob 1Result Comment: [09/26/2015] ADMINISTERED AT [employer] 2Ain Note: VIS GIVEN-DATED 04/28/12 Administered at [facility] 3Admin Note: VIS GIVEN 4Admin Note: [...] NOSTRIL DAILY, # 48 mL, 1 Refills, [facility] STORE 95679, 90, USE 2 SPRAYS IN EACH NOSTRIL DAILY, 167.6, cm, 11/02/21 9:05:00 EST, Height Start Date: 12/11/21 Status: Ordered gabapentin 100 mg oral capsule 200 mg, 2, capsule, By Mouth, Daily at bedtime, # 60 capsule, Refills 11, Tot. Refills 11, Maintenance, 06/11/22 12:04:00 EDT, Route to Pharmacy Electronically, [facility]/pharmacy #0843, Dose INCREASED 02/05/22. Please disregard last prescription, 167.6, cm,... Start Date: 06/11/22 Status: Ordered omeprazole 40 mg oral enteric coated capsule 1 capsule, By Mouth, 2 times a day, # 180 capsule, 0 Refills, Maintenance, 07/24/22 9:46:00 EDT, [facility] STORE [facility]2624, 167.6, cm, 07/23/22 13:04:00 EDT, Height Start Date: 07/24/22 Status: Ordered prazosin 1 mg oral capsule [...] NEEDED FOR CONSTIPATION, # 60 tablet, 1 Refills,Maintenance, 07/24/22 10:37:00 EDT, [facility], 167.6, cm, 07/23/22 13:04:00 EDT, Height Start Date: 07/24/22 Status: Ordered simvastatin 20 mg oral tablet 1, tablet, By Mouth, Daily at bedtime, # 90 tablet, Refills 1, Route to Pharmacy Electronically, [facility], 167.6, cm, 01/25/22 9:20:00 EDT, Height Start Date: 03/23/22 Status: Ordered Problem List Condition Confirmation Course [...] Painful rectal bleeding 6 Confirmed 2011 Active Premature ovarian failure Confirmed Active 1Mother [...] 12/31/13 Sex Female Patient Care team information Personnel Name: Gosia OCONNELL, Randy Cook Address: Address: [address] [place] [address] [place], [place] [address]
--- OUTSIDE RECORDS SUMMARY | 2024-08-19 00:45 | XMS_ITS | Continuity of Care Document ---
Author Organization [facility] Address [address] [place] [address]- Care Team Providers Care Political Cartoonist Name Role Phone Gosia OCONNELL, Randy Cook Primary Care Physician [phone] [facility] Date[facility] 04/07/20 - 05/07/20 [facility] [address] [place] [address]- [facility] Attending Physician: AdmJocelyn rosen Admitting Physician: AdmtrJocelyn Referring Physician: Admtr, Ar8 Allergies, Adverse Reactions, Alerts No Known Medication Allergies Immunizations Given and Recorded Vaccine Date Status Refusal Reason tetanus/diphtheria/pertussis, acel(Tdap) 02/14/17 Given influenza virus vaccine, inactivated 1 06/27/15 Re corded influenza virus vaccine, inactivated 2 06/20/12 Gi rob influenza virus vaccine, inactivated 3 12/07/08 Gi rob Tet/Diphth/Acel, Pertussis (oldterm) 4 12/07/08 Gi rob 1Result Comment: [09/26/2015] ADMINISTERED AT [facility] 2Admin Note: VIS GIVEN-DATED 04/28/12 Administered at [facility] 3Admin Note: VIS GIVEN 4Admin Note: VIS GIVEN Medications benztropine 0.5 mg oral tablet 0.5 mg, 1, tablet, By Mouth, 2 times a day, # 60 tablet, Refills 1, Tot. Refills 1, Maintenance, 05/11/19 14:23:19 EDT, Route to Pharmacy Electronically, [id number], [facility]/pharmacy #[id number] Start Date: 05/11/19 [...] 09/14/19 13:00:46 EST, Route to Pharmacy Electronically, [id number], [facility]/pharmacy #0843 Start Date: 09/14/19 Status: Ordered FLUoxetine 20 mg oral capsule 20 mg, 1, capsule, By Mouth, Daily, Take with Fluoxetine 10mg capsule (total dose = 30mg daily)., #30 capsule, Refills 5, Tot. Refills 5, Maintenance, 09/14/19 13:00:56 EST, Route to Pharmacy Electronically, [id number], [facility]... Start Date: 09/14/19 Status: Ordered LORazepam [...] mL, 0 Refills, Maintenance, 12/17/19 9:00:00 EST, [facility]/pharmacy #[id number], 1 glass every 15-30 minutes until finished, 165.1, cm, 12/14/19 15:03:00 EST, Height, 63.1, kg, 08/21/19 12:21:... Start Date: 12/17/19 Status: Ordered NuLYTELY with Flavor Packs oral powder for reconstitution See Instructions, 240 mL By Mouth Every 15 minutes, # 4,000 mL, 0 Refills, Maintenance, 12/10/19 16:20:00 EST, [facility]/pharmacy #0843, 240 mL By Mouth Every 15 minutes, 167.6, cm, 12/10/19 12:18:00 EST, Height, 63.1, kg, 08/21/19 12:21:00 EDT, Dry Weight Start Date: 12/10/19 Status: Ordered omeprazole 40 mg oral enteric coated capsule 1 capsule = 40 mg, By Mouth, Daily before breakfast, # 90 capsule, 3 Refills, Maintenance, :45:31 EST, EC Capsule Start Date: 09/02/19 Stop Date: 08/27/20 Status: Ordered Preparation H 0.25% rectal suppository [...] Replace Required Details, Route to Pharmacy Electronically, [id number], [facility]/phar... Start Date: 09/14/19 Status: Ordered simvastatin 20 mg oral tablet 20 mg, 1, tablet, By Mouth, Daily at bedtime, for 30 days, # 30 tablet, Refills 11, Tot. Refills 11, Hard Stop 04/07/21 8:11:00 EDT, 04/12/20 8:11:00 EDT, Route to Pharmacy Electronically, [facility]/pharmacy #[id number], 165.1, cm, 04/07/20 10:09:00 EDT, Height,... Start Date: 04/12/20 Stop Date: 04/07/21 Status: Ordered Ventolin HFA 108 mcg/inh inhalation aerosol with adapter 1 puffs, Inhalation, 4 times a day, PRN for wheezing, # 8 Gm, 1 Refills, Maintenance, 05/04/20 15:51:00 EDT, [facility]erosol, [facility], 165.1, cm, 04/07/20 10:09:00 EDT, Height, [...] of cancer: mo m's sister, cancer, in 30s, unknown type(Confirmed) Active Family history of ovarian [...]
--- OUTSIDE RECORDS SUMMARY | 2024-08-19 00:45 | XMS_ITS | Continuity of Care Document ---
Author Organization [facility] Address [address] [place] [address]- Care Team Providers Care Security System Engineer Name Role Phone Gosia OCONNELL, Randy Cook Primary Care Physician [phone] [facility] Date[facility]s): 06/27/24 - 07/27/24 [facility] [address] [place], [place] [phone] Allergies, Adverse Reactions, Alerts No Known Allergies [...] 09/06/22 Recorded zoster vaccine, inactivated 04/13/22 Recorded [id number] bivalent booster vax 06/30/22 Recorded SARS-CoV-2 (COVID-19) mRNA BNT-162b2 vac 09/18/21 Given SARS-CoV-2 (COVID-19) mRNA-1273 vaccine 03/14/21 R ecorded SARS-CoV-2 (COVID-19) mRNA-1273 vaccine 02/14/21 R ecorded pneumococcal 23-valent vaccine 01/31/19 Recorded tetanus/diphtheria/pertussis, acel(Tdap) 02/14/17 Given Tet/Diphth/Acel, Pertussis (oldterm) 12/07/08 Gi rob 1Result Comment: [09/26/2015] ADMINISTERED AT [facility] [employer] 2Ain Note: VIS GIVEN-DATED 04/28/12 Administered at [facility] 3Admin Note: VIS GIVEN 4Admin Note: [...] 02/18/23 16:01:00 EDT, CR Tablet, [facility]/pharmacy #[id number], Partial fill upon patient [...] EDT, Route to Pharmacy Electronically, [facility]/pharmacy #0843, Partial fill upon patient requ... Start Date: 06/22/24 Status: Ordered FLUoxetine 20 mg oral capsule [...] mL, 1 Refills, Maintenance, 08/24/22 16:57:00 EDT, [facility] STORE 01080, 90, USE 2 SPRAYS IN EACH NOSTRIL DAILY, 167.6, cm, 07/23/22 13:04:00 EDT, Height Start Date: 08/24/22 Status: Ordered gabapentin 100 mg oral capsule 2, capsule, By Mouth, Daily at bedtime, # 60 capsule, Refills 11, Maintenance, 06/25/23 12:25:00 EDT, Route to Pharmacy Electronically, [facility] STORE 61239, 167.6, cm, 05/27/23 15:30:00 EDT, Height Start Date: 06/25/23 Status: Ordered Metamucil 3.4 gm/5.2 gm oral powder for reconstitution = 3.4 Gm, By Mouth, Daily, dissolve in 8 oz of fluid drink once a day to prevent constipation, # 570 Gm, 11 Refills, Maintenance, 06/22/24 14:31:00 EDT, [facility]/pharmacy #0843, Partial fill upon patient request if the prescription is for a schedule II op... Start Date: 06/22/24 Status: Ordered Milk of Magnesia 8% oral suspension 30 mL = 2.4 Gm, By Mouth, Daily at bedtime, PRN for constipation, # 300 mL, 1 Refills, Maintenance,02/18/23 16:01:00 EDT, Suspension, [facility]/pharmacy #0843, Partial fill upon patient request if the prescription is for a schedule II opioid drug., 167.6,... Start Date: 02/18/23 Status: Ordered naproxen 500 mg oral tablet 1 tablet = 500 mg, By Mouth, 2 times a day, for 7 days, # 14 tablet, 0 Refills, Acute 07/31/24 14:46:00 EDT, 07/24/24 14:46:00 EDT, Tablet, [facility]/pharmacy #0843, Partial fill upon patient request if the prescription is for a schedule II opioid drug., 16... Start Date: 07/24/24 Stop Date: 07/31/24 Status: Ordered omeprazole 40 mg oral enteric coated capsule 1 capsule, By Mouth, 2 times a day, # 180 capsule, 1 Refills, Maintenance, 06/22/24 14:37:00 EDT, [facility], 167.6, cm, 06/22/24 13:58:00 EDT, Height, [...] 60 tablet, 5 Refills,Maintenance, 05/01/23 9:50:00 EDT, [facility] 220[facility], 167.6, cm, 02/18/23 15:20:00 EDT, Height Start Date: 05/01/23 Status: Ordered simvastatin 20 mg oral tablet 1, tablet, By Mouth, Daily at bedtime, # 90 tablet, Refills 1, Maintenance, 03/12/24 15:43:00 EDT, Route to Pharmacy Electronically, [facility], 167.6, cm, 08/29/23 11:50:00 EDT, Height, 77.2, kg, 07/25/23 13:46:00 EDT, Dry Weight Start Date: 03/12/24 Status: Ordered Problem List Condition Confirmation Course [...] rectal bleeding 6 Confirmed 2011 Active *[facility]/CP- [place] [phone]/[facility], active care coordination Confirmed Active Premature ovarian [...] Personnel Name: Gosia OCONNELL, Randy Cook Position: [facility] Physician - Primary Care Member Role: PCP Address: Address: [address] [place] [address] [place] [address]- [place] Care Team Related Persons Name: SUDHIR SOSA Address: home [address] [facility] [facility] [address] [place], [place] Name: ZEYNEP SOSA Address: home [place], [place] Name: ZEYNEP SOSA Address: home [address] [place], [place] Name: NONE, PT STATES
--- OUTSIDE RECORDS SUMMARY | 2024-08-19 00:45 | XMS_ITS | Continuity of Care Document ---
Author Organization [facility] Address [address] [place] [address]- Care Team Providers Care Skin Drier Name Role Phone Randy Elise MD Primary Care Physician [facility]s): 02/18[facility]23 - 03/20/23 [facility] [address] [place], [place] [address] Attending Physician: Admtr, Jocelyn Allergies, Adverse Reactions, Alerts No Known Medication Allergies Immunizations Given and Recorded Vaccine Date Status Refusal Reason [id number] bivalent booster vax 06/30/22 Recorded influenza virus vaccine, inactivated 06/30/22 Keith rded [...] Gi rob 1Result Comment: [09/26/2015] ADMINISTERED AT [facility] 2Admin Note: VIS GIVEN-DATED 04/28/12 Administered at [facility] 3Admin Note: VIS GIVEN 4Admin Note: VIS GIVEN Medications benztropine 0.5 mg oral tablet TAKE 1 TABLET BY MOUTH TWICE A DAY Start Date: 05/08/21 Status: Ordered bisacodyl 5 mg oral delayed release tablet 1 tablet = 5 mg, By Mouth, Daily, PRN as needed for constipation, # 50 tablet, 1 Refills, Maintenance, 02/18/23 16:01:00 EDT, CR Tablet, [facility]/pharmacy #0843, Partial fill upon patient [...] Refills, Maintenance, 08/24/22 16:57:00 EDT, [facility], 90, USE 2 SPRAYS IN EACH NOSTRIL DAILY, 167.6, cm, 07/23/22 13:04:00 EDT, Height Start Date: 08/24/22 Status: Ordered gabapentin 100 mg oral capsule 200 mg, 2, capsule, By Mouth, Daily at bedtime, # 60 capsule, Refills 11, Tot. Refills 11, Maintenance, 06/11/22 12:04:00 EDT, Route to Pharmacy Electronically, [facility]/pharmacy #0843, Dose INCREASED 02/05/22. Please disregard last prescription, 167.6, cm,... Start Date: 06/11/22 Status: Ordered Milk of Magnesia 8% oral suspension 30 mL = 2.4 Gm, By Mouth, Daily at bedtime, PRN for constipation, # 300 mL, 1 Refills, Maintenance,02/18/23 16:01:00 EDT, Suspension, [facility]/pharmacy #0843, Partial fill upon patient request if the prescription is for a schedule II opioid drug., 167.6,... Start Date: 02/18/23 Status: Ordered omeprazole 40 mg oral enteric coated capsule 1 capsule, By Mouth, 2 times a day, # 180 capsule, 0 Refills, Maintenance, 02/04/23 15:01:00 EDT, [facility], 167.6, cm, 12/11/22 8:04:00 EST, Height Start Date: 02/04/23 Status: Ordered prazosin 1 mg oral capsule [...] FOR CONSTIPATION, # 60 tablet, 1 Refills,Maintenance, 02/04/23 15:01:00 EDT, [facility] STORE 79505, 167.6, cm, 12/11/22 8:04:00 EST, Height Start Date: 02/04/23 Status: Ordered simvastatin 20 mg oral tablet 1, tablet, By Mouth, Daily at bedtime, # 90 tablet, Refills 1, Tot. Refills 1, 12/04/22 13:56:00 EST, Route to Pharmacy Electronically, [facility]/pharmacy #[id number], 167.6, cm, 09/27/22 11:25:00 EST, Height Start Date: 12/04/22 Status: Ordered Problem List Condition Confirmation Course [...] VERIFY Event Display: Patient Education/Instruction Authored Date: [id number] [facility] Clinical Summary Person Information Visit Date 10/01/2018 10:20 AM Name SRINATH SOSA Age 48 Years 1970 12:00 AM PCP Gosia OCONNELL, Randy Cook PCP Sex Female Race White Ethnicity Non-/Non- Language Thai You can now view a summary of your hospital visit from the comfort of your home through a free online portal called [employer]. [employer] is a website that allows you to securely view your medical information including discharge summary, medications and follow-up visits. You can also send a secure electronic message to your doctor???s office to request appointments, renew medicationsor just ask a question. You can enroll at [email or web address] or register during your next office visit. Smoking can increase your chances of developing chronic health problems and can cause harmful effects to other family members in your house. If you smoke, you are strongly encouraged to quit. Please call the [place] Smokers??? Helpline at 6-172-SGSUNOW (or ) or log on to [email or web address]ywire for more information. The National Suicide Prevention Hotline is available 20/05 if you or someone you know needs to find a reason to keep living. By calling 3-447-817-ovnr (6212) you'll be connected to a skilled, trained [...] primary care provider, you may find a [facility] provider by calling [facility] at [phone]. For information about the plan of care including goals and instructions for your diagnosis, please see the patient education orders section of this document. Patient Visit Summary: Future Appointments: Type Location [facility] Screening Mammo [facility] RAD 10/27/2018 3:15 PM 10/27/2018 3:30 PM Pending Follow-Up Instructions Patient Education Materials Additional Instructions: Patient Care team information Care Team Personnel Name: Randy Elise MD Position: S Physician - Primary Care Member Role: PCP Address: Address: [address] [place] [address] [place] [address]- Care Team Related Persons Name: SUDHIR SOSA Address: home [address] [facility] [address] [place], [place] Name: ZEYNEP SOSA Address: home [address] [place], [place] Name: ZEYNEP SOSA Address: home UNKNOWN [place], [place] Name: NONE, PT STATES
--- OUTSIDE RECORDS SUMMARY | 2024-08-19 00:45 | XMS_ITS | Continuity of Care Document ---
Author Organization [facility] Address [address] [place] [address]- Care Team Providers Care Type Copyist Name Role Phone Gosia OCONNELL, Randy Cook Primary Care Physician [facility]20 - 01/22/20 [facility] [address] [place] [address]- [facility] Attending Physician: Admtr, Ar8 Allergies, Adverse Reactions, Alerts No Known Medication Allergies Immunizations Given and Recorded Vaccine Date Status Refusal Reason tetanus/diphtheria/pertussis, acel(Tdap) 02/14/17 Given influenza virus vaccine, inactivated 1 06/27/15 Re corded influenza virus vaccine, inactivated 2 06/20/12 Gi rob influenza virus vaccine, inactivated 3 12/07/08 Gi rob Tet/Diphth/Acel, Pertussis (oldterm) 4 12/07/08 Gi rob 1Result Comment: [09/26/2015] ADMINISTERED AT [employer] 2Admin Note: VIS GIVEN-DATED 04/28/12 Administered at [facility] 3Admin Note: VIS GIVEN 4Admin Note: VIS GIVEN Medications benztropine 0.5 mg oral tablet 0.5 mg, 1, tablet, By Mouth, 2 times a day, # 60 tablet, Refills 1, Tot. Refills 1, Maintenance, 05/11/19 14:23:19 EDT, Route to Pharmacy Electronically, [id number], [facility]/pharmacy #[id number] Start Date: 05/11/19 Stop Date: 07/10/19 [...] 09/14/19 13:00:46 EST, Route to Pharmacy Electronically, [id number], [facility]/pharmacy #[id number] Start Date: 09/14/19 Status: Ordered FLUoxetine 20 mg oral capsule 20 mg, 1, capsule, By Mouth, Daily, Take with Fluoxetine 10mg capsule (total dose = 30mg daily)., #30 capsule, Refills 5, Tot. Refills 5, Maintenance, 09/14/19 13:00:56 EST, Route to Pharmacy Electronically, [id number], [facility]... Start Date: 09/14/19 Status: Ordered LORazepam [...] mL, 0 Refills, Maintenance, 12/17/19 9:00:00 EST, [facility], 1 glass every 15-30 minutes until finished, 165.1, cm, 12/14/19 15:03:00 EST, Height, 63.1, kg, 08/21/19 12:21:... Start Date: 12/17/19 Status: Ordered NuLYTELY with Flavor Packs oral powder for reconstitution See Instructions, 240 mL By Mouth Every 15 minutes, # 4,000 mL, 0 Refills, Maintenance, 12/10/19 16:20:00 EST, [facility]/pharmacy #[id number], 240 mL By Mouth Every 15 [...] Replace Required Details, Route to Pharmacy Electronically, [id number], [facility]/phar... Start Date: 09/14/19 Status: Ordered Ventolin HFA 108 mcg/inh inhalation aerosol with adapter 1 puffs, Inhalation, 4 times a day, PRN for wheezing, # 8 Gm, 1 Refills, Maintenance, 02/23/19 11:02:41 EDT, Aerosol Start Date: 02/23/19 Status: Ordered ZyrTEC 10 mg oral tablet 1 tablet = 10 mg, By Mouth, Daily, PRN allergies, # 30 tablet, 4 Refills, Maintenance, 03/04/18 15:52:09 EDT, Tablet Start Date: 03/04/18 Stop Date: 08/01/18 Status: Ordered Problem List Condition Effective Dates Status Health Status Inform ant Allergic rhinitis(Confirmed) Active Bilateral tubal ligation(Confirmed) 2000 Active Chronic constipation(Confirmed) Active Depression(Confirmed) Active Developmental [...]
--- OUTSIDE RECORDS SUMMARY | 2024-08-19 00:45 | XMS_ITS | Continuity of Care Document ---
Author Organization [facility] Address [address] [place] [address]- Care Team Providers Care Board Turner Name Role Phone Gosia OCONNELL, Randy Cook Primary Care Physician [facility] Date[facility]): 08[facility]23 - 09/28/23 [facility] [address], [place] [address] Attending Physician: AdmJocelyn rosen Admitting Physician: AdmtrJocelyn Referring Physician: Admtr, Ar8 Allergies, Adverse Reactions, Alerts No Known Allergies [...] 09/06/22 Recorded zoster vaccine, inactivated 04/13/22 Recorded [id number] bivalent booster vax 06/30/22 Recorded SARS-CoV-2 (COVID-19) mRNA BNT-162b2 vac 09/18/21 Given SARS-CoV-2 (COVID-19) mRNA-1273 vaccine 03/14/21 R ecorded SARS-CoV-2 (COVID-19) mRNA-1273 vaccine 02/14/21 R ecorded pneumococcal 23-valent vaccine 01/31/19 Recorded tetanus/diphtheria/pertussis, acel(Tdap) 02/14/17 Given Tet/Diphth/Acel, Pertussis (oldterm) 4 12/07/08 Gi rob 1Result Comment: [09/26/2015] ADMINISTERED AT [facility] 2Admin Note: VIS GIVEN-DATED 04/28/12 Administered at [facility] 3Admin Note: VIS GIVEN 4Admin [...] Maintenance, 02/18/23 16:01:00 EDT, CR Tablet, [facility]/pharmacy #[id number], Partial fill upon patient [...] Refills, Maintenance, 08/24/22 16:57:00 EDT, [facility], 90, USE 2 SPRAYS IN EACH NOSTRIL DAILY, 167.6, cm, 07/23/22 13:04:00 EDT, Height Start Date: 08/24/22 Status: Ordered gabapentin 100 mg oral capsule 2, capsule, By Mouth, Daily at bedtime, # 60 capsule, Refills 11, Maintenance, 06/25/23 12:25:00 EDT, Route to Pharmacy Electronically, [facility] 64257, 167.6, cm, 05/27/23 15:30:00 EDT, Height Start Date: 06/25/23 Status: Ordered Milk of Magnesia 8% oral suspension 30 mL = 2.4 Gm, By Mouth, Daily at bedtime, PRN for constipation, # 300 mL, 1 Refills, Maintenance,02/18/23 16:01:00 EDT, Suspension, [facility]/pharmacy #[id number], Partial fill upon patient request if the prescription is for a schedule II opioid drug., 167.6,... Start Date: 02/18/23 Status: Ordered omeprazole 40 mg oral enteric coated capsule 1 capsule, By Mouth, 2 times a day, # 180 capsule, 1 Refills, Maintenance, 05/20/23 14:10:00 EDT, [facility] 89289, 167.6, cm, 05/06/23 11:25:00 EDT, Height Start Date: 05/20/23 Status: Ordered prazosin 1 mg oral capsule [...] 5 Refills,Maintenance, 05/01/23 9:50:00 EDT, [facility], 167.6, cm, 02/18/23 15:20:00 EDT, Height Start Date: 05/01/23 Status: Ordered simvastatin 20 mg oral tablet 1, tablet, By Mouth, Daily at bedtime, # 90 tablet, Refills 1, Maintenance, 03/28/23 11:22:00 EDT, Route to Pharmacy Electronically, [facility], 167.6, cm, 02/18/23 15:20:00 EDT, Height Start [...] history of cancer: mom's sister, cancer, in s, unknown type Confirmed Active Family history of [...] team information Care Team Personnel Name: Gosia OCONENLL, Randy Cook Position: [facility] Physician - Primary Care Member Role: PCP Address: Address: [address] [facility] [place] [address]- [place] Care Team Related Persons Name: SUDHIR SOSA Address: home [address] [facility] [address] [place] [address] Name: ZEYNEP SOSA Address: home [address] [place] [address] Name: ZEYNEP SOSA Address: home [place]KNOWN [place], [place] Name: NONE, PT STATES
--- OUTSIDE RECORDS SUMMARY | 2024-08-19 00:45 | XMS_ITS | Continuity of Care Document ---
Author Organization [facility] Address [address] [place] [address]- Care Team Providers Care Retail Area Manager Name Role Phone Randy Elise MD Primary Care Physician [facility]): 05/08/21 - 06/07/21 [facility] [address] [place], [place] [address] Attending Physician: Admtr, Jocelyn Allergies, Adverse Reactions, Alerts No Known Medication Allergies Immunizations Given and Recorded Vaccine Date Status Refusal Reason SARS-CoV-2 (COVID-19) mRNA-1273 vaccine 03/14/21 R ecorded SARS-CoV-2 (COVID-19) mRNA-1273 vaccine 02/14/21 R ecorded tetanus/diphtheria/pertussis, acel(Tdap) 02/14/17 Given influenza virus vaccine, inactivated 1 06/27/15 Re corded influenza virus vaccine, inactivated 2 06/20/12 Gi rob influenza virus vaccine, inactivated 3 12/07/08 Gi rob Tet/Diphth/Acel, Pertussis (oldterm) 4 12/07/08 Gi rob 1Result Comment: [09/26/2015] ADMINISTERED AT [facility] 2Admin Note: VIS GIVEN-DATED 04/28/12 Administered at [facility] 3Admin Note: VIS GIVEN 4Admin Note: VIS GIVEN Medications benztropine 0.5 mg oral tablet TAKE 1 TABLET BY MOUTH TWICE A DAY Start Date: 05/08/21 Status: Ordered Flonase 50 mcg/inh nasal spray 1 sprays, Nares, Both, 2 times a day, # 16 Gm, 2 Refills, Maintenance, 03/28/21 9:37:00 EDT, [id number], Partial fill upon patient request if the prescription is for a schedule II opioid drug., 1 sprays Nares, Both 2 times a day, 167.6,... Start Date: 03/28/21 Status: Ordered FLUoxetine 20 mg oral capsule 20 mg, 1, capsule, By Mouth, Daily, # 30 capsule, Refills 0, Maintenance, 05/08/21 10:53:00 EDT, Partial fill upon patient request if the prescription is for a schedule II opioid drug. Start Date: 05/08/21 Status: Ordered MiraLax oral powder for reconstitution = 17 Gm, By Mouth, Daily, PRN Constipation, dissolve in water before taking, # 255 Gm, 1 Refills, Maintenance, 03/28/21 9:38:00 EDT, REC Powder, [facility]/pharmacy #[id number], Partial fill upon patient request if the prescription is for a schedule II opioid drug... Start Date: 03/28/21 Status: Ordered omeprazole 40 mg oral enteric coated capsule 1 capsule = 40 mg, By Mouth, 2 times a day, # 180 capsule, 0 Refills, Maintenance, 04/10/21 8:13:00EDT, EC Capsule, [id number], 167.6, cm, 08/23/20 12:36:00 EDT, Height, 63.1, kg, 08/21/19 12:21:00 EDT, Dry Weight Start Date: 04/10/21 Stop Date: 07/09/21 Status: Ordered prazosin 1 mg oral capsule [...] Refills, Maintenance, 03/28/21 9:37:00 EDT, REC Powder, [id number], Partial fill upon patient request [...] opioid drug. Start Date: 05/08/21 Status: Ordered simvastatin 20 mg oral tablet 1, tablet, By Mouth, Daily at bedtime, # 90 tablet, Refills 1, Tot. Refills 0, Maintenance, 03/28/21 9:34:00 EDT, Route to Pharmacy Electronically, [facility], 167.6, cm, 03/28/21 8:40:00 EDT, Height, 63.1, kg, 08/21/19 12:21:00 EDT, Dry Weight Start Date: 03/28/21 Status: Ordered Ventolin HFA 108 mcg/inh inhalation aerosol with adapter 1 puffs, Inhalation, 4 times a day, PRN for wheezing, # 8 Gm, 1 Refills, Maintenance, 05/04/20 15:51:00 EDT, Aerosol, [facility]/pharmacy #[id number], 165.1, cm, 04/07/20 10:09:00 EDT, [...]
--- OUTSIDE RECORDS SUMMARY | 2024-08-19 00:45 | XMS_ITS | Continuity of Care Document ---
Author Organization [facility] Address [address] [place] [address]- Care Team Providers Care Office Nurse Practitioner Name Role Phone Gosia OCONNELL, Randy Cook Primary Care Physician Encounter [facility] Date(s): 07/24/24 - 07/31/24 [facility] [address] [place] [address]- Attending Physician: Lydia Smiley MD Allergies, Adverse Reactions, Alerts No Known [...] 09/06/22 Recorded zoster vaccine, inactivated 04/13/22 Recorded [id number] bivalent booster vax 06/30/22 Recorded SARS-CoV-2 (COVID-19) mRNA BNT-162b2 vac 09/18/21 Given SARS-CoV-2 (COVID-19) mRNA-1273 vaccine 03/14/21 R ecorded SARS-CoV-2 (COVID-19) mRNA-1273 vaccine 02/14/21 R ecorded pneumococcal 23-valent vaccine 01/31/19 Recorded tetanus/diphtheria/pertussis, acel(Tdap) 02/14/17 Given Tet/Diphth/Acel, Pertussis (oldterm) 4 12/07/08 Gi rob 1Result Comment: [09/26/2015] ADMINISTERED AT [facility] 2Admin Note: VIS GIVEN-DATED 04/28/12 Administered at [facility] 3Admin Note: VIS GIVEN 4Admin [...] Refills, Maintenance, 02/18/23 16:01:00 EDT, CR Tablet, [facility]/pharmacy #[id number], Partial fill upon patient request if the prescription is for a schedule II opioid drug., 167.6... Start Date: 02/18/23 Status: Ordered docusate sodium 100 mg oral capsule 100 mg, 1, capsule, By Mouth, 2 times a day, take twice a day to prevent constipation., # 60 capsule, Refills 11, Tot. Refills 11, Maintenance, 06/22/24 14:31:00 EDT, Route to Pharmacy Electronically, [facility]/pharmacy #[id number], Partial fill upon patient requ... Start [...] mL, 1 Refills, Maintenance, 08/24/22 16:57:00 EDT, [facility] STORE 12940, 90, USE 2 SPRAYS IN EACH NOSTRIL DAILY, 167.6, cm, 07/23/22 13:04:00 EDT, Height Start Date: 08/24/22 Status: Ordered gabapentin 100 mg oral capsule 2, capsule, By Mouth, Daily at bedtime, # 60 capsule, Refills 11, Maintenance, 06/25/23 12:25:00 EDT, Route to Pharmacy Electronically, [facility] STORE 21170, 167.6, cm, 05/27/23 15:30:00 EDT, Height Start Date: 06/25/23 Status: Ordered Metamucil 3.4 gm/5.2 gm oral powder for reconstitution = 3.4 Gm, By Mouth, Daily, dissolve in 8 oz of fluid drink once a day to prevent constipation, # 570 Gm, 11 Refills, Maintenance, 06/22/24 14:31:00 EDT, [facility]/pharmacy #[id number], Partial fill upon patient request if the prescription is for a schedule II op... Start Date: 06/22/24 Status: Ordered Milk of Magnesia 8% oral suspension 30 mL = 2.4 Gm, By Mouth, Daily at bedtime, PRN for constipation, # 300 mL, 1 Refills, Maintenance,02/18/23 16:01:00 EDT, Suspension, [facility]/pharmacy #[id number], Partial fill upon patient request if the prescription is for a schedule II opioid drug., 167.6,... Start Date: 02/18/23 Status: Ordered omeprazole 40 mg oral enteric coated capsule 1 capsule, By Mouth, 2 times a day, # 180 capsule, 1 Refills, Maintenance, 06/22/24 14:37:00 EDT, [facility]/pharmacy #[id number], 167.6, cm, 06/22/24 13:58:00 EDT, Height, [...] 5 Refills,Maintenance, 05/01/23 9:50:00 EDT, [facility], 167.6, cm, 02/18/23 15:20:00 EDT, Height Start Date: 05/01/23 Status: Ordered simvastatin 20 mg oral tablet 1, tablet, By Mouth, Daily at bedtime, # 90 tablet, Refills 1, Tot. Refills 1, Maintenance, 07/29/24 14:20:00 EDT, Route to Pharmacy Electronically, [facility]/pharmacy #[id number], 167.6, cm, 07/24/24 14:25:00 EDT, Height, 77.2, kg, 07/25/23 13:46:00 EDT, Dry Weight Start Date: 07/29/24 Status: Ordered Problem List Condition Confirmation Course [...] bleeding 6 Confirmed 2011 Active *BHN/CCA/ONECARE/CP- Franc[place] [phone]/Health [facility], active care coordination Confirmed Active Premature ovarian [...] again age 49 per report in [facility] Vital Signs Most recent to oldest [Reference Range]: 1 Height 167.6 cm (07/24/24 2:25 PM) Oxygen Saturation [94-100 %] 99 % (07/24/24 2:25 PM) Pulse Rate [55-90 bpm] 120 bpm *H* (07/24/24 2:25 PM) Blood Pressure [90-138/55-84 mm Hg] 129/ 79mm Hg (07/24/24 2:25 PM) Respiratory Rate [16-30 br/min] 18 br/mi n (07/24/24 2:25 PM) Temperature [96.8-100.4 DegF] 98.8 DegF (07/24/24 2:25 PM) Mode of Delivery (Oxygen) Room air (07/24/24 2:25 PM) Blood pressure sites Arm, left (07/24/24 2:25 PM) Temperature Route Temporal (07/24/24 2:25 PM) Social History Social History Type Response Smoking Status Never smoker entered on: 12/31/13 Sex Female Patient Care team information Care Team Personnel Name: Gosia OCONNELL, Randy Cook Position: S Physician - Primary Care Member Role: PCP Address: Address: [address] [place] [address] [place] [address]- Care Team Related Persons Name: SUDHIR SOSA Address: home [address] [facility] [address] [place], [place] Name: ZEYNEP SOSA Address: home UNKNOWN [place], [place] Name: ZEYNEP SOSA Address: home [address] [place], [place] Name: NONE, PT STATES
--- OUTSIDE RECORDS SUMMARY | 2024-08-19 00:45 | XMS_ITS | Continuity of Care Document ---
Author Organization [facility] Address [address] [place] [address] [address] [place] [address]- Care Team Providers Care Roadway Technician Name Role Phone Gosia OCONNELL, Randy Cook Primary Care Physician [phone] [facility] Date(s): 06/27/23 - 07/27/[address] [place] [address]- Attending Physician: Jocelyn Mcclendon Admitting Physician: Jocelyn Mcclendon Referring Physician: AdmtrJocelyn Allergies, Adverse Reactions, Alerts No Known Allergies Immunizations Given and Recorded Vaccine Date Status Refusal Reason [id number] bivalent booster vax 06/30/22 Recorded influenza virus vaccine, inactivated 06/30/22 Keith rded influenza virus vaccine, inactivated 07/04/21 Keith rded influenza virus vaccine, inactivated 07/03/19 Keith rded influenza virus vaccine, inactivated 06/23/18 Keith rded influenza virus vaccine, inactivated 06/08/17 Kieth rded influenza virus vaccine, inactivated 06/14/16 Keith [...] Gi rob 1Result Comment: [09/26/2015] ADMINISTERED AT [facility] 2Admin Note: VIS GIVEN-DATED 04/28/12 Administered at [facility] 3Admin Note: VIS GIVEN [...] Refills, Maintenance, 02/18/23 16:01:00 EDT, CR Tablet, [facility]/pharmacy #[id number], Partial fill upon patient request [...] Refills, Maintenance, 08/24/22 16:57:00 EDT, [facility], 90, USE 2 SPRAYS IN EACH NOSTRIL DAILY, 167.6, cm, 07/23/22 13:04:00 EDT, Height Start Date: 08/24/22 Status: Ordered gabapentin 100 mg oral capsule 2, capsule, By Mouth, Daily at bedtime, # 60 capsule, Refills 11, Maintenance, 06/25/23 12:25:00 EDT, Route to Pharmacy Electronically, [facility] 144[facility], 167.6, cm, 05/27/23 15:30:00 EDT, Height Start Date: 06/25/23 Status: Ordered Milk of Magnesia 8% oral suspension 30 mL = 2.4 Gm, By Mouth, Daily at bedtime, PRN for constipation, # 300 mL, 1 Refills, Maintenance,02/18/23 16:01:00 EDT, Suspension, [facility]/pharmacy #[id number], Partial fill upon patient request if the prescription is for a schedule II opioid drug., 167.6,... Start Date: 02/18/23 Status: Ordered omeprazole 40 mg oral enteric coated capsule 1 capsule, By Mouth, 2 times a day, # 180 capsule, 1 Refills, Maintenance, 05/20/23 14:10:00 EDT, [facility], 167.6, cm, 05/06/23 11:25:00 EDT, Height Start [...] 5 Refills,Maintenance, 05/01/23 9:50:00 EDT, [facility], 167.6, cm, 02/18/23 15:20:00 EDT, Height Start Date: 05/01/23 Status: Ordered simvastatin 20 mg oral tablet 1, tablet, By Mouth, Daily at bedtime, # 90 tablet, Refills 1, Maintenance, 03/28/23 11:22:00 EDT, Route to Pharmacy Electronically, [facility] 93766, 167.6, cm, 02/18/23 15:20:00 EDT, Height Start [...] Personnel Name: Gosia OCONNELL, Randy Cook Position: [facility] Physician - Primary Care Member Role: PCP Address: Address: [address] [facility] [place] [address]- [place] Care Team Related Persons Name: SUDHIR SOSA Address: home [address] [facility] [address] [place] [address] Name: ZEYNEP SOSA Address: home [place]KNOWN [place], [place] Name: ZEYNEP SOSA Address: home [address] [place], [place] Name: NONE, PT STATES
--- OUTSIDE RECORDS SUMMARY | 2024-08-19 00:45 | XMS_ITS | Continuity of Care Document ---
Author Organization [facility] Address [address] [place] [address]- Care Team Providers Care Turntable Man Name Role Phone Gosia OCONNELL, Randy Cook Primary Care Physician [phone] [facility] 05[facility]22[facility]24 - 06/21/24 [facility] [address] [place], [place] [phone] Allergies, Adverse Reactions, Alerts No Known Allergies [...] 09/06/22 Recorded zoster vaccine, inactivated 04/13/22 Recorded [id number] bivalent booster vax 06/30/22 Recorded SARS-CoV-2 (COVID-19) mRNA BNT-162b2 vac 09/18/21 Given SARS-CoV-2 (COVID-19) mRNA-1273 vaccine 03/14/21 R ecorded SARS-CoV-2 (COVID-19) mRNA-1273 vaccine 02/14/21 R ecorded pneumococcal 23-valent vaccine 01/31/19 Recorded tetanus/diphtheria/pertussis, acel(Tdap) 02/14/17 Given Tet/Diphth/Acel, Pertussis (oldterm) 4 12/07/08 Gi rob 1Result Comment: [09/26/2015] ADMINISTERED AT [facility] 2Ain Note: VIS GIVEN-DATED 04/28/12 Administered at [facility] 3Admin Note: VIS GIVEN 4Admin Note: [...] Refills, Maintenance, 02/18/23 16:01:00 EDT, CR Tablet, [facility]/pharmacy #[id number], Partial fill upon patient request if [...] Refills, Maintenance, 08/24/22 16:57:00 EDT, [facility], 90, USE 2 SPRAYS IN EACH NOSTRIL DAILY, 167.6, cm, 07/23/22 13:04:00 EDT, Height Start Date: 08/24/22 Status: Ordered gabapentin 100 mg oral capsule 2, capsule, By Mouth, Daily at bedtime, # 60 capsule, Refills 11, Maintenance, 06/25/23 12:25:00 EDT, Route to [facility] Electronically, [facility], 167.6, cm, 05/27/23 15:30:00 EDT, Height Start Date: 06/25/23 Status: Ordered Milk of Magnesia 8% oral suspension 30 mL = 2.4 Gm, By Mouth, Daily at bedtime, PRN for constipation, # 300 mL, 1 Refills, Maintenance,02/18/23 16:01:00 EDT, Suspension, [facility]/pharmacy #[id number], Partial fill upon patient request if the prescription is for a schedule II opioid drug., 167.6,... Start Date: 02/18/23 Status: Ordered omeprazole 40 mg oral enteric coated capsule 1 capsule, By Mouth, 2 times a day, # 180 capsule, 1 Refills, Maintenance, 04/20/24 13:46:00 EDT, [facility], 167.6, cm, 08/29/23 11:50:00 EDT, Height, 77.2, kg, 07/25/23 13:46:00 EDT, Dry Weight Start Date: 04/20/24 Status: Ordered prazosin 1 mg oral capsule [...] 5 Refills,Maintenance, 05/01/23 9:50:00 EDT, [facility], 167.6, cm, 02/18/23 15:20:00 EDT, Height Start Date: 05/01/23 Status: Ordered simvastatin 20 mg oral tablet 1, tablet, By Mouth, Daily at bedtime, # 90 tablet, Refills 1, Maintenance, 03/12/24 15:43:00 EDT, Route to [facility] Electronically, [facility], 167.6, cm, 11/02/23 11:50:00 EDT, Height, 77.2, kg, 07/25/23 13:46:00 [...] bleeding 6 Confirmed 2011 Active *BHN/CCA/ONECARE/CP- Jose EduardoaRiverjose david [phone]/[facility], active care coordination Confirmed Active Premature [...] Team Personnel Name: Randy Elise MD Position: [facility] Physician - Primary Care Member Role: PCP Address: Address: [address] [place] [address] [place] [address]- Care Team Related Persons Name: SUDHIR SOSA Address: home [address] [address] Name: ZEYNEP SOSA Address: home [address] [place] [address] Name: ZEYNEP SOSA Address: [place] [address] Name: NONE, STATES
--- OUTSIDE RECORDS SUMMARY | 2024-08-19 00:45 | XMS_ITS | Continuity of Care Document ---
Author Organization [facility] Address [address] [place] [address]- Care Team Providers Care Leasing Professional Name Role Phone Gosia OCONNELL, Randy Cook Primary Care Physician [phone] [facility]): 07[facility]25[facility]23 - 08/24/23 [facility] [address], [place] [address] Attending Physician: Admjessika, Jocelyn Admitting Physician: AdmtrJocelyn Referring Physician: Admtr, Ar8 [...] 09/06/22 Recorded zoster vaccine, inactivated 04/13/22 Recorded [id number] bivalent booster vax 06/30/22 Recorded SARS-CoV-2 (COVID-19) mRNA BNT-162b2 vac 09/18/21 Given SARS-CoV-2 (COVID-19) mRNA-1273 vaccine 03/14/21 R ecorded SARS-CoV-2 (COVID-19) mRNA-1273 vaccine 02/14/21 R ecorded pneumococcal 23-valent vaccine 01/31/19 Recorded tetanus/diphtheria/pertussis, acel(Tdap) 02/14/17 Given Tet/Diphth/Acel, Pertussis (oldterm) 4 12/07/08 Gi rob 1Result Comment: [09/26/2015] ADMINISTERED AT [facility] 2Admin Note: VIS GIVEN-DATED 04/28/12 Administered at [facility] 3Admin Note: VIS GIVEN 4Admin Note: [...] Refills, Maintenance, 02/18/23 16:01:00 EDT, CR Tablet, [facility]/pharmacy #[id number], Partial fill upon patient request if [...] Refills, Maintenance, 08/24/22 16:57:00 EDT, [facility], 90, USE 2 SPRAYS IN EACH NOSTRIL DAILY, 167.6, cm, 07/23/22 13:04:00 EDT, Height Start Date: 08/24/22 Status: Ordered gabapentin 100 mg oral capsule 2, capsule, By Mouth, Daily at bedtime, # 60 capsule, Refills 11, Maintenance, 06/25/23 12:25:00 EDT, Route to Pharmacy Electronically, [facility] 12827, 167.6, cm, 05/27/23 15:30:00 EDT, Height Start Date: 06/25/23 Status: Ordered Milk of Magnesia 8% oral suspension 30 mL = 2.4 Gm, By Mouth, Daily at bedtime, PRN for constipation, # 300 mL, 1 Refills, Maintenance,02/18/23 16:01:00 EDT, Suspension, [facility]/pharmacy #[id number], Partial fill upon patient request if the prescription is for a schedule II opioid drug., 167.6,... Start Date: 02/18/23 Status: Ordered omeprazole 40 mg oral enteric coated capsule 1 capsule, By Mouth, 2 times a day, # 180 capsule, 1 Refills, Maintenance, 05/20/23 14:10:00 EDT, [facility] STORE 60344, 167.6, cm, 05/06/23 11:25:00 EDT, Height Start [...] 60 tablet, 5 Refills,Maintenance, 05/01/23 9:50:00 EDT, [facility] 73968, 167.6, cm, 02/18/23 15:20:00 EDT, Height Start Date: 05/01/23 Status: Ordered simvastatin 20 mg oral tablet 1, tablet, By Mouth, Daily at bedtime, # 90 tablet, Refills 1, Maintenance, 03/28/23 11:22:00 EDT, Route to [facility] Electronically, [facility], 167.6, cm, 02/18/23 15:20:00 EDT, Height Start [...] Personnel Name: Gosia OCONNELL, Randy Cook Position: [facility] Physician - Primary Care Member Role: PCP Address: Address: [address] [facility] [place] [address]- [place] Care Team Related Persons Name: SUDHIR SOSA Address: home [address] [facility] [address] [place] [address] Name: ZEYNEP SOSA Address: home [address] [place], [place] Name: ZEYNEP SOSA Address: home [place]KNOWN [place], [place] Name: NONE, PT STATES
--- OUTSIDE RECORDS SUMMARY | 2024-08-19 00:45 | XMS_ITS | Continuity of Care Document ---
Author Organization [facility] Address [address] [place] [address]- Care Team Providers Care Credentialer Name Role Phone Gosia OCONNELL, Randy Cook Primary Care Physician [phone] [facility]counter [facility] Date(s): 12/01/19 - 12/11/19 [facility] [address] [place] [address]- [facility] Attending Physician: AdmJocelyn rosen Admitting Physician: [...] Gi rob 1Result Comment: [09/26/2015] ADMINISTERED AT [facility] 2Admin Note: VIS GIVEN-DATED 04/28/12 Administered at [facility] 3Admin Note: VIS GIVEN 4Admin Note: VIS GIVEN Medications benztropine 0.5 mg oral tablet 0.5 mg, 1, tablet, By Mouth, 2 times a day, # 60 tablet, Refills 1, Tot. Refills 1, Maintenance, 05/11/19 14:23:19 EDT, Route to Pharmacy Electronically, [id number], [facility]/pharmacy #[id number] Start Date: 05/11/19 Stop Date: 07/10/19 [...] 09/14/19 13:00:46 EST, Route to Pharmacy Electronically, [id number], [facility]/pharmacy #[id number] Start Date: 09/14/19 Status: Ordered FLUoxetine 20 mg oral capsule 20 mg, 1, capsule, By Mouth, Daily, Take with Fluoxetine 10mg capsule (total dose = 30mg daily)., #30 capsule, Refills 5, Tot. Refills 5, Maintenance, 09/14/19 13:00:56 EST, Route to Pharmacy Electronically, [id number], [facility]/... Start Date: 09/14/19 Status: Ordered LORazepam 0.5 [...] mL, 0 Refills, Maintenance, 12/10/19 16:20:00 EST, [facility]/pharmacy #[id number], 240 mL By Mouth Every 15 [...] Replace Required Details, Route to Pharmacy Electronically, [id number], [facility]/phar... Start Date: 09/14/19 Status: Ordered simvastatin 20 mg oral tablet 20 mg, 1, tablet, By Mouth, Daily at bedtime, for 30 days, # 30 tablet, Refills 2, Tot. Refills 2, Hard Stop 12/27/19 17:11:26 EST, 09/28/19 17:11:26 EST, Route to Pharmacy Electronically, [id number], [facility]/pharmacy #[id number] Start Date: 09/28/19 Stop Date: 12/27/19 Status: Ordered Ventolin HFA 108 mcg/inh inhalation [...] epigastric pain(Confirmed) Active Family history of cancer: randy nichole's sister, cancer, in 30's, unknown type(Confirmed) Active [...]
--- OUTSIDE RECORDS SUMMARY | 2024-08-19 00:45 | XMS_ITS | Continuity of Care Document ---
Author Organization [facility] Address [address] [place] [address]- Care Team Providers Care Mri Specialist Name Role Phone Randy Elise MD Primary Care Physician [facility] Date(s): 09/19/21 - 12/21/21 [facility] [address] [place] [address]- Attending Physician: Randy Elise MD Admitting Physician: [...] Gi rob 1Result Comment: [09/26/2015] ADMINISTERED AT [facility] 2Admin Note: VIS GIVEN-DATED 04/28/12 Administered at [facility] 3Admin Note: VIS GIVEN 4Admin Note: [...] NOSTRIL DAILY, # 48 mL, 1 Refills, [facility], 90, USE 2 SPRAYS IN EACH NOSTRIL DAILY, 167.6, cm, 11/02/21 9:05:00 EST, Height Start Date: 12/11/21 Status: Ordered omeprazole 40 mg oral enteric coated capsule 1 capsule, By Mouth, 2 times a day, # 180 capsule, 1 Refills, [facility], 167.6, cm, 09/29/21 11:56:00 EST, Height Start [...] Refills, Maintenance, 03/28/21 9:37:00 EDT, REC Powder, [facility]/pharmacy #[id number], Partial fill upon patient request [...] 09/18/21 13:57:00 EST, Route to Pharmacy Electronically, [facility]/pharmacy #[id number] Tablet,Partial fill upon patient request if [...] 1, Route to Pharmacy Electronically, [facility], 167.6, cm, 11/02/21 9:05:00 EST, Height Start Date: 11/03/21 Status: Ordered Ventolin HFA 108 mcg/inh inhalation aerosol with adapter 1 puffs, Inhalation, 4 times a day, PRN for wheezing, # 8 Gm, 1 Refills, Maintenance, 05/04/20 15:51:00 EDT, Aerosol, [facility]/pharmacy #[id number], 165.1, cm, 04/07/20 10:09:00 [...]
--- OUTSIDE RECORDS SUMMARY | 2024-08-19 00:45 | XMS_ITS | Continuity of Care Document ---
Author Organization [facility] Address [address] [place] [address]- Care Team Providers Care Gin Feeder Name Role Phone Randy Elise MD Primary Care Physician [phone] Encounter [facility] Date(s): 11/27/23 - 03/26/24 [facility] [address] [place] [address]- Attending Physician: Eligio Núñez MD Admitting Physician: Eligio Núñez MD Referring Physician: Randy Elise MD Allergies, Adverse Reactions, [...] 09/06/22 Recorded zoster vaccine, inactivated 04/13/22 Recorded [id number] bivalent booster vax 06/30/22 Recorded SARS-CoV-2 (COVID-19) mRNA BNT-162b2 vac 09/18/21 Given SARS-CoV-2 (COVID-19) mRNA-1273 vaccine 03/14/21 R ecorded SARS-CoV-2 (COVID-19) mRNA-1273 vaccine 02/14/21 R ecorded pneumococcal 23-valent vaccine 01/31/19 Recorded tetanus/diphtheria/pertussis, acel(Tdap) 02/14/17 Given Tet/Diphth/Acel, Pertussis (oldterm) 4 12/07/08 Gi rob 1Result Comment: [09/26/2015] ADMINISTERED AT [facility] 2Admin Note: VIS GIVEN-DATED 04/28/12 Administered at [facility] 3Admin Note: VIS GIVEN 4Admin Note: [...] Refills, Maintenance, 02/18/23 16:01:00 EDT, CR Tablet, [facility]/pharmacy #[id number], Partial fill upon patient request if [...] Refills, Maintenance, 08/24/22 16:57:00 EDT, [facility], 90, USE 2 SPRAYS IN EACH NOSTRIL DAILY, 167.6, cm, 07/23/22 13:04:00 EDT, Height Start Date: 08/24/22 Status: Ordered gabapentin 100 mg oral capsule 2, capsule, By Mouth, Daily at bedtime, # 60 capsule, Refills 11, Maintenance, 06/25/23 12:25:00 EDT, Route to Pharmacy Electronically, [facility], 167.6, cm, 05/27/23 15:30:00 EDT, Height Start [...] 5 Refills,Maintenance, 05/01/23 9:50:00 EDT, [facility], 167.6, cm, 02/18/23 15:20:00 EDT, Height Start Date: 05/01/23 Status: Ordered simvastatin 20 mg oral tablet 1, tablet, By Mouth, Daily at bedtime, # 90 tablet, Refills 1, Maintenance, 03/12/24 15:43:00 EDT, Route to Pharmacy Electronically, [facility] 169[facility], 167.6, cm, 08/29/23 11:50:00 EDT, Height, 77.2, [...] bleeding 6 Confirmed 2011 Active *BHN/CCA/ONECARE/CP- Francisca [phone]/Health alf, active care coordination Confirmed Active Premature ovarian [...] Team Personnel Name: Randy Elise MD Position: [facility] Physician - Primary Care Member Role: PCP Address: Address: [address] [place] [address] [place] [address]- Care Team Related Persons Name: SUDHIR SOSA Address: home [address] [address] [place] [address] Name: ZEYNEP SOSA Address: [place] [address] [address] Name: ZEYNEP SOSA Address: home [address] [place] [address] Name: NONE, STATES
--- OUTSIDE RECORDS SUMMARY | 2024-08-19 00:45 | XMS_ITS | Continuity of Care Document ---
Author Organization [facility] Address [address] [place] [address]- Care Team Providers Care Interface Engineer Name Role Phone Gosia OCONNELL, Randy Cook Primary Care Physician [facility] Date[facility]s): 01/27/24 - 02/29/24 [facility] [address] [place] [address]- Attending Physician: Not on Staff, Attending MD [...] 09/06/22 Recorded zoster vaccine, inactivated 04/13/22 Recorded [id number] bivalent booster vax 06/30/22 Recorded SARS-CoV-2 (COVID-19) mRNA BNT-162b2 vac 09/18/21 Given SARS-CoV-2 (COVID-19) mRNA-1273 vaccine 03/14/21 R ecorded SARS-CoV-2 (COVID-19) mRNA-1273 vaccine 02/14/21 R ecorded pneumococcal 23-valent vaccine 01/31/19 Recorded tetanus/diphtheria/pertussis, acel(Tdap) 02/14/17 Given Tet/Diphth/Acel, Pertussis (oldterm) 4 12/07/08 Gi rob 1Result Comment: [09/26/2015] ADMINISTERED AT [facility] 2Admin Note: VIS GIVEN-DATED 04/28/12 Administered at [facility] 3Admin Note: VIS GIVEN [...] Refills, Maintenance, 02/18/23 16:01:00 EDT, CR Tablet, [facility]/pharmacy #[id number], Partial fill upon patient [...] Refills, Maintenance, 08/24/22 16:57:00 EDT, [facility], 90, USE 2 SPRAYS IN EACH NOSTRIL DAILY, 167.6, cm, 07/23/22 13:04:00 EDT, Height Start Date: 08/24/22 Status: Ordered gabapentin 100 mg oral capsule 2, capsule, By Mouth, Daily at bedtime, # 60 capsule, Refills 11, Maintenance, 06/25/23 12:25:00 EDT, Route to Pharmacy Electronically, [facility], 167.6, cm, 05/27/23 15:30:00 EDT, Height Start Date: 06/25/23 Status: Ordered Milk of Magnesia 8% oral suspension 30 mL = 2.4 Gm, By Mouth, Daily at bedtime, PRN for constipation, # 300 mL, 1 Refills, Maintenance,02/18/23 16:01:00 EDT, Suspension, [facility]/pharmacy #[id number], Partial fill upon patient [...] 5 Refills,Maintenance, 05/01/23 9:50:00 EDT, [facility], 167.6, cm, 02/18/23 15:20:00 EDT, Height Start Date: 05/01/23 Status: Ordered simvastatin 20 mg oral tablet 1, tablet, By Mouth, Daily at bedtime, # 90 tablet, Refills 1, Maintenance, 03/28/23 11:22:00 EDT, Route to Pharmacy Electronically, [facility], 167.6, cm, 02/18/23 15:20:00 EDT, Height Start [...] 6 Confirmed 2011 Active *BHN/CCA/ONECARE/CP- Jose EduardoaRivera [phone]/Health group home, active care coordination Confirmed Active Premature [...] Team Personnel Name: Randy Elise MD Position: [facility] Physician - Primary Care Member Role: PCP Address: Address: [address] [place] [address] [place] [address]- Care Team Related Persons Name: SUDHIR SOSA Address: home [address] [address] Name: ZEYNEP SOSA Address: home [address] [facility] [address] Name: ZEYNEP SOSA Address: [place] [address] Name: NONE, PT STATES
--- OUTSIDE RECORDS SUMMARY | 2024-08-19 00:45 | XMS_ITS | Continuity of Care Document ---
Author Organization [facility] Address [address] [place] [address]- Care Team Providers Care Power Tool Repairer Name Role Phone Gosia OCONNELL, Randy Cook Primary Care Physician [facility] Date[facility]s): 04/11/22 - 05/11/22 [facility] [address] [place] [address]- Attending Physician: Admtr, Doe8 Allergies, Adverse Reactions, Alerts No Known Medication [...] Gi rob 1Result Comment: [09/26/2015] ADMINISTERED AT [employer] 2Admin Note: VIS GIVEN-DATED 04/28/12 Administered at [facility] 3Admin Note: VIS GIVEN 4Admin Note: [...] NOSTRIL DAILY, # 48 mL, 1 Refills, [facility], 90, USE 2 SPRAYS IN EACH NOSTRIL DAILY, 167.6, cm, 11/02/21 9:05:00 EST, Height Start Date: 12/11/21 Status: Ordered gabapentin 100 mg oral capsule 200 mg, 2, capsule, By Mouth, Daily at bedtime, # 60 capsule, Refills 3, Tot. Refills 3, Maintenance, 02/05/22 17:16:00 EDT, Route to Pharmacy Electronically, [facility]/pharmacy #[id number], Dose INCREASED 02/05/22. Please disregard last prescription, 167.6, cm, 0... Start Date: 02/05/22 Status: Ordered omeprazole 40 mg oral enteric coated capsule 1 capsule, By Mouth, 2 times a day, # 180 capsule, 0 Refills, [facility]98[facility], 167.6, cm, 01/25/22 9:20:00 EDT, Height Start [...] NEEDED FOR CONSTIPATION, # 60 tablet, 1 Refills,[facility], 167.6, cm, 01/25/22 9:20:00 EDT, Height Start Date: 03/25/22 Status: Ordered simvastatin 20 mg oral tablet 1, tablet, By Mouth, Daily at bedtime, # 90 tablet, Refills 1, Route to Pharmacy Electronically, [facility] 14541, 167.6, cm, 01/25/22 9:20:00 EDT, Height Start [...]
--- OUTSIDE RECORDS SUMMARY | 2024-08-19 00:45 | XMS_ITS | Continuity of Care Document ---
Author Organization [facility] Address [address] [place] [address]- Care Team Providers Care Trace Evidence Technician Name Role Phone Gosia OCONNELL, Randy Cook Primary Care Physician [phone] [facility] Date(s): 11/30/19 - 12/10/19 [facility] [address] [place] [address]- [facility] Attending Physician: Admtr, Ar8 Allergies, Adverse Reactions, Alerts No Known Medication Allergies Immunizations Given and Recorded Vaccine Date Status Refusal Reason tetanus/diphtheria/pertussis, acel(Tdap) 02/14/17 Given influenza virus vaccine, inactivated 1 06/27/15 Re corded influenza virus vaccine, inactivated 2 06/20/12 Gi rob influenza virus vaccine, inactivated 3 12/07/08 Gi rob Tet/Diphth/Acel, Pertussis (oldterm) 4 12/07/08 Gi rob 1Result Comment: [09/26/2015] ADMINISTERED AT [facility] 2Admin Note: VIS GIVEN-DATED 04/28/12 Administered at [facility] 3Admin Note: VIS GIVEN 4Admin Note: VIS GIVEN Medications benztropine 0.5 mg oral tablet 0.5 mg, 1, tablet, By Mouth, 2 times a day, # 60 tablet, Refills 1, Tot. Refills 1, Maintenance, 05/11/19 14:23:19 EDT, Route to Pharmacy Electronically, [id number], [facility]/pharmacy #[id number] Start Date: 05/11/19 Stop Date: 07/10/19 [...] 09/14/19 13:00:46 EST, Route to Pharmacy Electronically, [id number], [facility]/pharmacy #[id number] Start Date: 09/14/19 Status: Ordered FLUoxetine 20 mg oral capsule 20 mg, 1, capsule, By Mouth, Daily, Take with Fluoxetine 10mg capsule (total dose = 30mg daily)., #30 capsule, Refills 5, Tot. Refills 5, Maintenance, 09/14/19 13:00:56 EST, Route to Pharmacy Electronically, [id number], [facility]/... Start Date: 09/14/19 Status: Ordered LORazepam 0.5 [...] mL, 0 Refills, Maintenance, 12/10/19 16:20:00 EST, [facility], 240 mL By Mouth Every 15 minutes, 167.6, cm, 12/10/19 12:18:00 EST, Height, 63.1, kg, 08/21/19 12:21:00 EDT, Dry Weight Start Date: 12/10/19 Status: Ordered omeprazole 40 mg oral enteric coated capsule 1 capsule = 40 mg, By Mouth, Daily before breakfast, # 90 capsule, 3 Refills, Maintenance, 198:45:31 EST, EC Capsule Start Date: 09/02/19 Stop [...] Replace Required Details, Route to Pharmacy Electronically, [id number], [facility]/phar... Start Date: 09/14/19 Status: Ordered simvastatin 20 mg oral tablet 20 mg, 1, tablet, By Mouth, Daily at bedtime, for 30 days, # 30 tablet, Refills 2, Tot. Refills 2, Hard Stop 12/27/19 17:11:26 EST, 09/28/19 17:11:26 EST, Route to Pharmacy Electronically, [id number], [facility]/pharmacy #[id number] Start Date: 09/28/19 Stop Date: 12/27/19 [...]
--- OUTSIDE RECORDS SUMMARY | 2024-08-19 00:45 | XMS_ITS | Continuity of Care Document ---
Author Organization [facility] Address [address], [address] [place] [address]- Care Team Providers Care Tank Insulator Rubber Name Role Phone Gosia OCONNELL, Randy Cook Primary Care Physician [place] [facility] Date(s): 11/27/21 - 12/27/21 [facility] [address], [address] [place] [address]- Attending Physician: Jocelyn Mcclendon Admitting Physician: Jocelyn Mcclendon Referring Physician: AdmtrJocelyn Allergies, Adverse Reactions, Alerts No Known Medication [...] Gi rob 1Result Comment: [09/26/2015] ADMINISTERED AT [facility] 2Admin Note: VIS GIVEN-DATED 04/28/12 Administered at [facility] 3Admin Note: VIS GIVEN 4Admin Note: [...] # 48 mL, 1 Refills, [facility], 90, USE 2 SPRAYS IN EACH NOSTRIL DAILY, 167.6, cm, 11/02/21 9:05:00 EST, Height Start Date: 12/11/21 Status: Ordered gabapentin 100 mg oral capsule 100 mg, 1, capsule, By Mouth, Daily at bedtime, # 30 capsule, Refills 1, Tot. Refills 1, Maintenance, 12/25/21 15:07:00 EST, Route to Pharmacy Electronically, [facility]/pharmacy #[id number], Partial fill upon patient request if the prescription is for a schedule... Start Date: 12/25/21 Status: Ordered omeprazole 40 mg oral enteric coated capsule 1 capsule, By Mouth, 2 times a day, # 180 capsule, 1 Refills, [facility], 167.6, cm, 09/29/21 11:56:00 EST, Height Start [...] Refills, Maintenance, 03/28/21 9:37:00 EDT, REC Powder, [facility]/pharmacy #[id number], Partial fill upon patient [...] 09/18/21 13:57:00 EST, Route to Pharmacy Electronically, [facility]/pharmacy #[id number] Tablet,Partial fill upon patient request [...] tablet, Refills 1, Route to Pharmacy Electronically, [facility] 76641, 167.6, cm, 11/02/21 9:05:00 EST, Height Start Date: 11/03/21 Status: Ordered Ventolin HFA 108 mcg/inh inhalation aerosol with adapter 1 puffs, Inhalation, 4 times a day, PRN for wheezing, # 8 Gm, 1 Refills, Maintenance, 05/04/20 15:51:00 EDT, Aerosol, [facility]/pharmacy #[id number], 165.1, cm, 04/07/20 10:09:00 EDT, [...]
--- OUTSIDE RECORDS SUMMARY | 2024-08-19 00:45 | XMS_ITS | Continuity of Care Document ---
Author Organization [facility] Address [address] [place] [address]- Care Team Providers Care Domestic Freight Forwarder Name Role Phone Randy Elise MD Primary Care Physician [phone] Encounter [facility] Date(s): 07/25/23 - 08/01/[address] [facility] [address] [place], [place] [address] Encounter Diagnosis Sore throat(Discharge Diagnosis) - 07/25/23 Attending Physician: Lydia Smiley MD Referring Physician: Randy Elise MD Allergies, Adverse Reactions, Alerts No Known Allergies Immunizations Given and Recorded Vaccine Date Status Refusal Reason [id number] bivalent booster vax 06/30/22 Recorded influenza virus [...] Gi rob 1Result Comment: [09/26/2015] ADMINISTERED AT [facility] [employer] 2Admin Note: VIS GIVEN-DATED 04/28/12 Administered at [facility] 3Admin Note: VIS GIVEN 4Admin Note: [...] Refills, Maintenance, 02/18/23 16:01:00 EDT, CR Tablet, [facility]/pharmacy #[id number], Partial fill upon patient request [...] Refills, Maintenance, 08/24/22 16:57:00 EDT, [facility], 90, USE 2 SPRAYS IN EACH NOSTRIL DAILY, 167.6, cm, 07/23/22 13:04:00 EDT, Height Start Date: 08/24/22 Status: Ordered gabapentin 100 mg oral capsule 2, capsule, By Mouth, Daily at bedtime, # 60 capsule, Refills 11, Maintenance, 06/25/23 12:25:00 EDT, Route to Pharmacy Electronically, [facility], 167.6, cm, 05/27/23 15:30:00 EDT, Height Start Date: 06/25/23 Status: Ordered Milk of Magnesia 8% oral suspension 30 mL = 2.4 Gm, By Mouth, Daily at bedtime, PRN for constipation, # 300 mL, 1 Refills, Maintenance,02/18/23 16:01:00 EDT, Suspension, [facility]/pharmacy #[id number], Partial fill upon patient request if the prescription is for a schedule II opioid drug., 167.6,... Start Date: 02/18/23 Status: Ordered omeprazole 40 mg oral enteric coated capsule 1 capsule, By Mouth, 2 times a day, # 180 capsule, 1 Refills, Maintenance, 05/20/23 14:10:00 EDT, [facility], 167.6, cm, 05/06/23 11:25:00 EDT, Height Start [...] 5 Refills,Maintenance, 05/01/23 9:50:00 EDT, [facility], 167.6, cm, 02/18/23 15:20:00 EDT, Height Start Date: 05/01/23 Status: Ordered simvastatin 20 mg oral tablet 1, tablet, By Mouth, Daily at bedtime, # 90 tablet, Refills 1, Maintenance, 03/28/23 11:22:00 EDT, Route to Pharmacy Electronically, [facility], 167.6, cm, 02/18/23 15:20:00 EDT, Height Start [...] again age 49 per report in [facility] Diagnosis Diagnosis Type Effective Dates Health Status Clini tori Service Informant Sore throat Discharge Diagnosis 07/25/23 Vital Signs Most recent to oldest [Reference Range]: 1 Height 167.6 cm (07/25/23 1:46 PM) Weight 77.2 kg (07/25/23 1:46 PM) Oxygen Saturation [94-100 %] 97 % (07/25/23 1:46 PM) Pulse Rate [55-90 bpm] 109 bpm *H* (07/25/23 1:46 PM) Body Mass Index [18.5-24.99 kg/m2] 27.48 kg/m2 *H* (07/25/23 1:46 PM) Blood Pressure [90-138/55-84 mm Hg] 131/ 79mm Hg (07/25/23 1:46 PM) Respiratory Rate [16-30 br/min] 18 br/mi n (07/25/23 1:46 PM) Temperature [96.8-100.4 DegF] 99.1 DegF (07/25/23 1:46 PM) Mode of Delivery (Oxygen) Room air (07/25/23 1:46 PM) Blood pressure sites Arm, right (07/25/23 1:46 PM) Temperature Route Oral (07/25/23 1:46 PM) Dry Weight 77.2 kg (07/25/23 1:46 PM) Weight Obtained Via Standing scale (07/25/23 1:46 PM) Dry Weight Obtained Via Standing scale (07/25/23 1:46 PM) Social History Social History Type Response Smoking Status Never smoker entered on: 12/31/13 Sex Female Note * Cardinal , Cindy: PERFORM, SIGN, VERIFY Event Display: Patient Education/Instruction Authored Date: [id number] [facility] *[facility] Clinical Summary Name SRINATH SOSA Age 52 Years 1970 PCP Gosia OCONNELL, Randy Cook PCP Visit Date 07/25/2023 12:20:00 Additional Instructions: Scheduled Appointments?? Future Appointments ?No Future Appointments Scheduled Follow-Up Instructions ?? Diagnosis Acute pharyngitis, unspecified Medications: Please continue your medications until treatment is completed or stopped by your provider. Discuss any questions related to medications with your provider. Medications to Continue with No Changes These medications were not printed or sent to your pharmacy Benztropine (benztropine 0.5 mg oral tablet) TAKE 1 TABLET BY MOUTH TWICE A DAY. Next Dose: Bisacodyl (bisacodyl 5 mg oral delayed release tablet) 1 tab(s) Oral Daily as needed as needed for constipation. Refills: 1. Next Dose: Fluoxetine (FLUoxetine 20 mg oral capsule) 1 capsule Oral Daily. Next Dose: Fluticasone Nasal (fluticasone 50 mcg/inh nasal spray) USE 2 SPRAYS IN EACH NOSTRIL DAILY. Refills:1. Next Dose: Gabapentin (gabapentin 100 mg oral capsule) 2 capsule Oral Daily at Bedtime. Refills: 11. Next Dose: Milk of Magnesia (Milk of Magnesia 8% oral suspension) 30 Milliliter Oral Daily at Bedtime as needed for constipation. Refills: 1. Next Dose: Miscellaneous Rx (.2% Nifedipine in 5% lidocaine) Apply pea size amount 3-4 times per day. Refills:1. Next Dose: Omeprazole (omeprazole 40 mg oral enteric coated capsule) 1 capsule Oral twice a day. Refills: 1. Next Dose: Prazosin (prazosin 1 mg oral capsule) 1 capsule Oral Daily at Bedtime. Next Dose: Risperidone (risperiDONE 3 mg oral tablet) 1 tab(s) Oral Daily. Next Dose: Senna (Senna-Time 8.6 mg oral tablet) 1 OR 2 TABLETS Oral Daily at Bedtime as needed NEEDED FOR CONSTIPATION. Refills: 5. Next Dose: Simvastatin (simvastatin 20 mg oral tablet) 1 tab(s) Oral Daily at Bedtime. Refills: 1. Next Dose: Allergy Info:?? No Known Medication Allergies; NKA Medications Given This Visit Future Orders ?Throat Culture Grp A Strep? Order Date:07/25/23?- Complete on or after?07/25/23 Vital Signs Height 167.6 cm Weight 77.2 kg BMI 27.48 kg/m2 Blood Pressure 131 mm Hg/79 mm Hg Temperature 99.1 DegF Pulse Rate 109 bpm Respiratory Rate 18 br/min 02 Sat Mode of Delivery 97 %/Room air You can now view a summary of your hospital visit from the comfort of your home through a free online portal called [employer]. [employer] is a website that allows you to securely view your medical information including discharge summary, medications and follow-up visits. ??You can alsosend a secure electronic message to your doctor???s office to request appointments, renew medications or just ask a question. You can enroll at [email or web address] or register during your next office visit. Disclaimer:?? The information provided is of a general nature and is intended to be used in conjunction with the recommendations and advice of your health care practitioner. ??Every effort has been made to ensure that the information provided is accurate and complete at the time it is provided to you however, as your needs change, or, as new ??information becomes available, different or additional instructions may be required. If you have questions, please consult with your primary care provider or pharmacist, as appropriate. ??This information is not intended to serve as substitution for assessment and evaluation by a qualified health care provider. If you do not have a primary care provider, you may find a [facility] provider by calling [facility] Link at [phone]. [facility], in keeping with [facility] guidance, no longer requires face masks for staff, patientsor visitors in most situations. Similar to time spent indoors at other locations, there is the chance that you were exposed to respiratory viruses during your time with us (such as flu or COVID-19).? If you develop symptoms concerning for a viral respiratory infection, please seek testing (and treatment if indicated) from your medical provider or home test kit. For information about the plan of care including goals and instructions for your diagnosis, please see the patient education orders section of this document. Patient Education Materials?? The content of this educational material or handout may have been modified, supplemented, or adapted from its original content and format to support your individualized medical care. Patient Care team information Care Team Personnel Name: Gosia OCONNELL, Randy Cook Position: S Physician - Primary Care Member Role: PCP Address: Address: [address] [place] [address] [place] [address]- [place] Care Team Related Persons Name: SUDHIR SOSA Address: home [address] [facility] [address] [place] [address] Name: ZEYNEP SOSA Address: [place] [address] Name: ZEYNEP SOSA Address: home [address] [place], [place] Name: NONE, PT STATES
--- OUTSIDE RECORDS SUMMARY | 2024-08-19 00:45 | XMS_ITS | Continuity of Care Document ---
Author Organization [facility] Address [address] [place] [address]- Care Team Providers Care Software Developer Mid Level Name Role Phone Gosia OCONNELL, Randy Cook Primary Care Physician [facility] Date(s): 04/25/20 - 05/25/20 [facility] [address] [place] [address]- [place] Attending Physician: Admtr, Doe8 Admitting Physician: Admtr, Ar8 Referring Physician: Admtr, Ar8 Allergies, Adverse Reactions, Alerts No Known Medication Allergies Immunizations Given and Recorded Vaccine Date Status Refusal Reason tetanus/diphtheria/pertussis, acel(Tdap) 02/14/17 Given influenza virus vaccine, inactivated 1 06/27/15 Re corded influenza virus vaccine, inactivated 2 06/20/12 Gi rob influenza virus vaccine, inactivated 3 12/07/08 Gi rob Tet/Diphth/Acel, Pertussis (oldterm) 4 12/07/08 Gi rob 1Result Comment: [09/26/2015] [facility] 2[facility] Note: VIS GIVEN-DATED 04/28/12 Administered at [facility] 3Admin Note: VIS GIVEN 4Admin Note: VIS GIVEN Medications benztropine 0.5 mg oral tablet 0.5 mg, 1, tablet, By Mouth, 2 times a day, # 60 tablet, Refills 1, Tot. Refills 1, Maintenance, 05/11/19 14:23:19 EDT, Route to Pharmacy Electronically, [id number], [facility]/pharmacy #[id number] Start Date: 05/11/19 Stop Date: [...] 09/14/19 13:00:46 EST, Route to Pharmacy Electronically, [id number], [facility]/pharmacy #[id number] Start Date: 09/14/19 Status: Ordered FLUoxetine 20 mg oral capsule 20 mg, 1, capsule, By Mouth, Daily, Take with Fluoxetine 10mg capsule (total dose = 30mg daily)., #30 capsule, Refills 5, Tot. Refills 5, Maintenance, 09/14/19 13:00:56 EST, Route to Pharmacy Electronically, [id number], [facility]... Start Date: 09/14/19 Status: Ordered LORazepam [...] mL, 0 Refills, Maintenance, 12/17/19 9:00:00 EST, [facility]/pharmacy #[id number], 1 glass every 15-30 minutes until finished, 165.1, cm, 12/14/19 15:03:00 EST, Height, 63.1, kg, 08/21/19 12:21:... Start Date: 12/17/19 Status: Ordered NuLYTELY with Flavor Packs oral powder for reconstitution See Instructions, 240 mL By Mouth Every 15 minutes, # 4,000 mL, 0 Refills, Maintenance, 12/10/19 16:20:00 EST, [facility]/pharmacy #[id number], 240 mL By Mouth Every [...] Replace Required Details, Route to Pharmacy Electronically, [id number], [facility]/phar... Start Date: 09/14/19 Status: Ordered simvastatin 20 mg oral tablet 20 mg, 1, tablet, By Mouth, Daily at bedtime, for 30 days, # 30 tablet, Refills 11, Tot. Refills 11, Hard Stop 04/07/21 8:11:00 EDT, 04/12/20 8:11:00 EDT, Route to Pharmacy Electronically, [facility]/pharmacy #[id number], 165.1, cm, 04/07/20 10:09:00 EDT, Height,... [...]
--- OUTSIDE RECORDS SUMMARY | 2024-08-19 00:45 | XMS_ITS | Continuity of Care Document ---
Author Organization [facility] Address [address] [place] [address]- Care Team Providers Care Receiving Coordinator Name Role Phone Gosia OCONNELL, Randy Cook Primary Care Physician [phone] [facility] Date[facility]s): 03/13/21 - 04/12/21 [facility] [address] [place], [place] [address] Allergies, Adverse Reactions, Alerts No Known Medication Allergies Immunizations Given and Recorded Vaccine Date Status Refusal Reason tetanus/diphtheria/pertussis, acel(Tdap) 02/14/17 Given influenza virus vaccine, inactivated 1 06/27/15 Re corded influenza virus vaccine, inactivated 2 06/20/12 Gi rob influenza virus vaccine, inactivated 3 12/07/08 Gi rob Tet/Diphth/Acel, Pertussis (oldterm) 4 12/07/08 Gi rob 1Result Comment: [09/26/2015] ADMINISTERED AT [employer] 2Admin Note: VIS GIVEN-DATED 04/28/12 Administered at [facility] 3Admin Note: VIS GIVEN 4Admin Note: VIS GIVEN Medications benztropine 0.5 mg oral tablet 0.5 mg, 1, tablet, By Mouth, 2 times a day, # 60 tablet, Refills 1, Tot. Refills 1, Maintenance, 05/11/19 14:23:19 EDT, Route to Pharmacy Electronically, [id number], [facility]/pharmacy #[id number] Start Date: 05/11/19 Stop Date: 07/10/19 Status: Ordered diclofenac 1% topical gel 1 application, Topically, 4 times a day, # 100 Gm, 0 Refills, Maintenance, 05/11/19 14:14:25 EDT, Gel, 1 application Topically 4 times a day Start Date: 05/11/19 Status: Ordered Flonase 50 mcg/inh nasal spray 1 sprays, Nares, Both, 2 times a day, # 16 Gm, 2 Refills, Maintenance, 03/28/21 9:37:00 EDT, [place],[facility]/pharmacy #[id number], Partial fill upon patient request if the prescription is for a schedule II opioid drug., 1 sprays Nares, Both 2 times a day, 167.6,... Start Date: 03/28/21 Status: Ordered FLUoxetine 10 mg oral capsule 10 mg, 1, capsule, By Mouth, Daily, Take in addition to Fluoxetine 20mg daily (total =30mg daily).,# 30 capsule, Refills 5, Tot. Refills 5, 09/14/19 13:00:46 EST, Route to Pharmacy Electronically, [id number], [facility]/pharmacy #[id number] Start Date: 09/14/19 Status: Ordered FLUoxetine 20 mg oral capsule 20 mg, 1, capsule, By Mouth, Daily, Take with Fluoxetine 10mg capsule (total dose = 30mg daily)., #30 capsule, Refills 5, Tot. Refills 5, Maintenance, 09/14/19 13:00:56 EST, Route to Pharmacy Electronically, [id number], [facility]/... Start Date: 09/14/19 Status: Ordered LORazepam 0.5 [...] Refills, Maintenance, 03/28/21 9:38:00 EDT, REC Powder, [facility]/pharmacy #[id number], Partial fill upon patient request if the prescription is for a schedule II opioid drug... Start Date: 03/28/21 Status: Ordered omeprazole 40 mg oral enteric coated capsule 1 capsule = 40 mg, By Mouth, 2 times a day, # 180 capsule, 0 Refills, Maintenance, 04/10/21 8:13:00EDT, EC Capsule, [facility]/pharmacy #[id number], 167.6, cm, 08/23/20 12:36:00 EDT, Height, 63.1, kg, 08/21/19 12:21:00 EDT, Dry Weight Start Date: 04/10/21 Stop Date: 07/09/21 Status: Ordered Preparation H 0.25% rectal suppository 1 unit, Rectally, Daily, # 7 units, 1 Refills, Maintenance, 03/04/18 16:07:27 EDT, 1 unit Rectally Daily,x7 days Start Date: 03/04/18 Stop Date: 03/18/18 Status: Ordered psyllium 3.4 g/5.4 g oral powder for reconstitution = 1.7 Gm, By Mouth, Daily, # 283 Gm, 1 Refills, Maintenance, 03/28/21 9:37:00 EDT, REC Powder, [facility]/pharmacy #[id number], Partial fill upon patient request [...] Replace Required Details, Route to Pharmacy Electronically, [id number], [facility]/phar... Start Date: 09/14/19 Status: Ordered simvastatin 20 mg oral tablet 1, tablet, By Mouth, Daily at bedtime, # 90 tablet, Refills 1, Tot. Refills 0, Maintenance, 03/28/21 9:34:00 EDT, Route to Pharmacy Electronically, [facility], 167.6, cm, 03/28/21 8:40:00 EDT, Height, 63.1, [...]
--- OUTSIDE RECORDS SUMMARY | 2024-08-19 00:45 | XMS_ITS | Continuity of Care Document ---
Author Organization [facility] Address [address] [place] [address]- Care Team Providers Care Cell Operation Supervisor Name Role Phone Gosia OCONNELL, Randy Cook Primary Care Physician [phone] [facility] Date[facility]s): 01/30/24 - 02/29/24 [facility] [address] [place], [place] [phone] Attending Physician: Admtr, Ar8 Allergies, Adverse Reactions, [...] 09/06/22 Recorded zoster vaccine, inactivated 04/13/22 Recorded [id number] bivalent booster vax 06/30/22 Recorded SARS-CoV-2 (COVID-19) mRNA BNT-162b2 vac 09/18/21 Given SARS-CoV-2 (COVID-19) mRNA-1273 vaccine 03/14/21 R ecorded SARS-CoV-2 (COVID-19) mRNA-1273 vaccine 02/14/21 R ecorded pneumococcal 23-valent vaccine 01/31/19 Recorded tetanus/diphtheria/pertussis, acel(Tdap) 02/14/17 Given Tet/Diphth/Acel, Pertussis (oldterm) 4 12/07/08 Gi rob 1Result Comment: [09/26/2015] ADMINISTERED AT [facility] 2Admin Note: VIS GIVEN-DATED 04/28/12 Administered at [facility] 3Admin Note: VIS GIVEN [...] Refills, Maintenance, 02/18/23 16:01:00 EDT, CR Tablet, [facility]/pharmacy #[id number], Partial fill upon patient request if [...] Refills, Maintenance, 08/24/22 16:57:00 EDT, [facility], 90, USE 2 SPRAYS IN EACH NOSTRIL DAILY, 167.6, cm, 07/23/22 13:04:00 EDT, Height Start Date: 08/24/22 Status: Ordered gabapentin 100 mg oral capsule 2, capsule, By Mouth, Daily at bedtime, # 60 capsule, Refills 11, Maintenance, 06/25/23 12:25:00 EDT, Route to Pharmacy Electronically, [facility], 167.6, cm, 05/27/23 15:30:00 EDT, Height Start Date: 06/25/23 Status: Ordered Milk of Magnesia 8% oral suspension 30 mL = 2.4 Gm, By Mouth, Daily at bedtime, PRN for constipation, # 300 mL, 1 Refills, Maintenance,02/18/23 16:01:00 EDT, Suspension, [facility]/pharmacy #[id number], Partial fill upon patient request if [...] 5 Refills,Maintenance, 05/01/23 9:50:00 EDT, [facility], 167.6, cm, 02/18/23 15:20:00 EDT, Height Start Date: 05/01/23 Status: Ordered simvastatin 20 mg oral tablet 1, tablet, By Mouth, Daily at bedtime, # 90 tablet, Refills 1, Maintenance, 03/28/23 11:22:00 EDT, Route to Pharmacy Electronically, [facility], 167.6, cm, 02/18/23 15:20:00 EDT, Height Start [...] 6 Confirmed 2011 Active *[facility]/CP- [facility] [phone]/Health shelter, active care coordination Confirmed Active Premature ovarian [...] VERIFY Event Display: Patient Education/Instruction Authored Date: [id number] [facility] Clinical Summary Person Information Visit Date 10/01/2018 10:20 AM Name SRINATH SOSA Age 48 Years 1970 12:00 AM PCP Gosia OCONNELL, Randy [id number] Sex Female Race White Ethnicity Non-/Non- Language Moroccan You can now view a summary of your hospital visit from the comfort of your home through a free online portal called [employer]. [employer] is a website that allows you to securely view your medical information including discharge summary, medications and follow-up visits. You can also send a secure electronic message to your doctor???s office to request appointments, renew medicationsor just ask a question. You can enroll at [email or web address] or register during your next office visit. Smoking can increase your chances of developing chronic health problems and can cause harmful effects to other family members in your house. If you smoke, you are strongly encouraged to quit. Please call the [place] Smokers??? Helpline at 9-794-DLOENOW (or ) or log on to [email or web address] for more information. The National Suicide Prevention Hotline is available 20/05 if you or someone you know needs to find a reason to keep living. By calling 3-179-685-Enubila (9367) you'll be connected to a skilled, trained [...] primary care provider, you may find a [facility] provider by calling [facility] Link at [phone]. For information about the plan of care including goals and instructions for your diagnosis, please see the patient education orders section of this document. Patient Visit Summary: Future Appointments: Type Location Start [facility] M[facility] 10/27/2018 3:15 PM 10/27/2018 3:30 PM Pending Follow-Up Instructions Patient Education Materials Additional Instructions: Patient Care team information Care Team Personnel Name: Gosia OCONNELL, Randy Cook Position: [facility] Physician - Primary Care Member Role: PCP Address: Address: [address] [place] [address] [place] [address]- Care Team Related Persons Name: SUDHIR SOSA Address: home [address] [place] [address] [address] [facility] [place] [address] Name: ZEYNEP SOSA Address: home [address] [place] [address] Name: ZEYNEP SOSA Address: [place] [address] Name: NONE, PT STATES
--- OUTSIDE RECORDS SUMMARY | 2024-08-19 00:45 | XMS_ITS | Continuity of Care Document ---
Author Organization [facility] Address [address] [place] [address]- Care Team Providers Care Collet Making Machine Operator Name Role Phone Gosia OCONNELL, Randy Cook Primary Care Physician [phone] [facility] Date[facility]s): 05/04/20 - 06/03/20 [facility] [address] [place] [address]- [place] States Allergies, Adverse Reactions, Alerts No Known Medication Allergies Immunizations Given and Recorded Vaccine Date Status Refusal Reason tetanus/diphtheria/pertussis, acel(Tdap) 02/14/17 Given influenza virus vaccine, inactivated 1 06/27/15 Re corded influenza virus vaccine, inactivated 2 06/20/12 Gi rob influenza virus vaccine, inactivated 3 12/07/08 Gi rob Tet/Diphth/Acel, Pertussis (oldterm) 4 12/07/08 Gi rob 1Result Comment: [09/26/2015] ADMINISTERED AT [facility] [email or web address] 2Admin Note: VIS GIVEN-DATED 04/28/12 Administered at [facility] 3Admin Note: VIS GIVEN 4Admin Note: VIS GIVEN Medications benztropine 0.5 mg oral tablet 0.5 mg, 1, tablet, By Mouth, 2 times a day, # 60 tablet, Refills 1, Tot. Refills 1, Maintenance, 05/11/19 14:23:19 EDT, Route to Pharmacy Electronically, [id number], [facility]/pharmacy #[id number] Start Date: 05/11/19 Stop Date: 07/10/19 [...] 09/14/19 13:00:46 EST, Route to Pharmacy Electronically, [id number], [facility]/pharmacy #0843 Start Date: 09/14/19 Status: Ordered FLUoxetine 20 mg oral capsule 20 mg, 1, capsule, By Mouth, Daily, Take with Fluoxetine 10mg capsule (total dose = 30mg daily)., #30 capsule, Refills 5, Tot. Refills 5, Maintenance, 09/14/19 13:00:56 EST, Route to Pharmacy Electronically, [id number], [facility]... Start Date: 09/14/19 Status: Ordered LORazepam [...] mL, 0 Refills, Maintenance, 12/10/19 16:20:00 EST, [facility]/pharmacy #0843, 240 mL By Mouth Every 15 [...] Replace Required Details, Route to Pharmacy Electronically, [id number], [facility]/phar... Start Date: 09/14/19 Status: Ordered simvastatin 20 mg oral tablet 20 mg, 1, tablet, By Mouth, Daily at bedtime, for 30 days, # 30 tablet, Refills 11, Tot. Refills 11, Hard Stop 04/07/21 8:11:00 EDT, 04/12/20 8:11:00 EDT, Route to Pharmacy Electronically, [facility]/pharmacy #0843, 165.1, cm, 04/07/20 10:09:00 EDT, Height,... [...]
--- OUTSIDE RECORDS SUMMARY | 2024-08-19 00:45 | XMS_ITS | Continuity of Care Document ---
Author Organization [facility] Address [address] [place] [address]- Care Team Providers Care Director Quality Assurance Name Role Phone Gosia OCONNELL, Randy Cook Primary Care Physician [facility] 12[facility]19[facility]20 - 01/18/21 [facility] [address] [place], [place] [address] Allergies, Adverse Reactions, Alerts No Known Medication Allergies Immunizations Given and Recorded Vaccine Date Status Refusal Reason tetanus/diphtheria/pertussis, acel(Tdap) 02/14/17 Given influenza virus vaccine, inactivated 1 06/27/15 Re corded influenza virus vaccine, inactivated 2 06/20/12 Gi rob influenza virus vaccine, inactivated 3 12/07/08 Gi rob Tet/Diphth/Acel, Pertussis (oldterm) 4 12/07/08 Gi rob 1Result Comment: [09/26/2015] ADMINISTERED AT [employer] 2Admin Note: VIS GIVEN-DATED 04/28/12 Administered at [facility] 3Admin Note: VIS GIVEN 4Admin Note: VIS GIVEN Medications benztropine 0.5 mg oral tablet 0.5 mg, 1, tablet, By Mouth, 2 times a day, # 60 tablet, Refills 1, Tot. Refills 1, Maintenance, 05/11/19 14:23:19 EDT, Route to Pharmacy Electronically, [id number], [facility]/pharmacy #[id number] Start Date: 05/11/19 Stop [...] 09/14/19 13:00:46 EST, Route to Pharmacy Electronically, [id number], [facility]/pharmacy #[id number] Start Date: 09/14/19 Status: Ordered FLUoxetine 20 mg oral capsule 20 mg, 1, capsule, By Mouth, Daily, Take with Fluoxetine 10mg capsule (total dose = 30mg daily)., #30 capsule, Refills 5, Tot. Refills 5, Maintenance, 09/14/19 13:00:56 EST, Route to Pharmacy Electronically, [id number], [facility] Start Date: 09/14/19 Status: Ordered LORazepam [...] mL, 0 Refills, Maintenance, 12/17/19 9:00:00 EST, [facility]/pharmacy #[id number], 1 glass every 15-30 minutes until finished, 165.1, cm, 12/14/19 15:03:00 EST, Height, 63.1, kg, 08/21/19 12:21:... Start Date: 12/17/19 Status: Ordered NuLYTELY with Flavor Packs oral powder for reconstitution See Instructions, 240 mL By Mouth Every 15 minutes, # 4,000 mL, 0 Refills, Maintenance, 12/10/19 16:20:00 EST, [facility]/pharmacy #[id number], 240 mL By Mouth Every 15 minutes, 167.6, cm, 12/10/19 12:18:00 EST, Height, 63.1, kg, 08/21/19 12:21:00 EDT, Dry Weight Start Date: 12/10/19 Status: Ordered omeprazole 40 mg oral enteric coated capsule 1 capsule = 40 mg, By Mouth, 2 times a day, # 180 capsule, 1 Refills, Maintenance, 10/12/20 8:13:00EST, EC Capsule, [facility]/pharmacy #[id number], 167.6, cm, 08/23/20 12:36:00 EDT, Height, [...] Replace Required Details, Route to Pharmacy Electronically, [id number], [facility]/phar... Start Date: 09/14/19 Status: Ordered simvastatin 20 mg oral tablet 20 mg, 1, tablet, By Mouth, Daily at bedtime, for 90 days, # 90 tablet, Refills 0, Tot. Refills 0, Hard Stop 03/12/21 9:06:00 EDT, 12/12/20 9:06:00 EST, Route to Pharmacy Electronically, [facility]/pharmacy#[id number], 167.6, cm, 08/23/20 12:36:00 EDT, Height, 63... Start Date: 12/12/20 Stop Date: 03/12/21 Status: Ordered Ventolin HFA 108 mcg/inh inhalation aerosol with adapter 1 puffs, Inhalation, 4 times a day, PRN for wheezing, # 8 Gm, 1 Refills, Maintenance, 05/04/20 15:51:00 EDT, Aerosol, [facility]/pharmacy #[id number], 165.1, cm, 04/07/20 10:09:00 EDT, Height, [...]
[2024-08-19 00:46] LABS: Influenza A PCR NEGATIVE (Negative); Influenza B PCR NEGATIVE (Negative); Resp Syncy Virus RNA Qual PCR NEGATIVE (Negative); SARS COV2 PCR INHOUSE NEGATIVE (Negative)
--- OUTSIDE RECORDS SUMMARY | 2024-08-19 00:46 | XMS_ITS | Continuity of Care Document ---
Author Organization [facility] Address [address] [place] [address]- Care Team Providers Care Recreational Assistant Name Role Phone Gosia OCONNELL, Randy Cook Primary Care Physician [facility] 07/06/24 - 08/05/24 [facility] [address] [place], [place] [phone] Allergies, Adverse Reactions, Alerts No Known Allergies [...] 09/06/22 Recorded zoster vaccine, inactivated 04/13/22 Recorded [id number] bivalent booster vax 06/30/22 Recorded SARS-CoV-2 (COVID-19) mRNA BNT-162b2 vac 09/18/21 Given SARS-CoV-2 (COVID-19) mRNA-1273 vaccine 03/14/21 R ecorded SARS-CoV-2 (COVID-19) mRNA-1273 vaccine 02/14/21 R ecorded pneumococcal 23-valent vaccine 01/31/19 Recorded tetanus/diphtheria/pertussis, acel(Tdap) 02/14/17 Given Tet/Diphth/Acel, Pertussis (oldterm) 4 12/07/08 Gi rob 1Result Comment: [09/26/2015] ADMINISTERED AT [employer] 2Ain Note: VIS GIVEN-DATED 04/28/12 Administered at [facility] 3Admin Note: VIS GIVEN 4Admin Note: [...] Refills, Maintenance, 02/18/23 16:01:00 EDT, CR Tablet, [facility]/pharmacy #[id number], Partial fill upon [...] 06/22/24 14:31:00 EDT, Route to Pharmacy Electronically, [facility]/pharmacy #[id number], Partial fill upon [...] mL, 1 Refills, Maintenance, 08/24/22 16:57:00 EDT, [facility] STORE 64617, 90, USE 2 SPRAYS IN EACH NOSTRIL DAILY, 167.6, cm, 07/23/22 13:04:00 EDT, Height Start Date: 08/24/22 Status: Ordered gabapentin 100 mg oral capsule 2, capsule, By Mouth, Daily at bedtime, # 60 capsule, Refills 11, Maintenance, 06/25/23 12:25:00 EDT, Route to Pharmacy Electronically, [facility] STORE [id number], 167.6, cm, 05/27/23 15:30:00 EDT, Height Start Date: 06/25/23 Status: Ordered Metamucil 3.4 gm/5.2 gm oral powder for reconstitution = 3.4 Gm, By Mouth, Daily, dissolve in 8 oz of fluid drink once a day to prevent constipation, # 570 Gm, 11 Refills, Maintenance, 06/22/24 14:31:00 EDT, [facility]/pharmacy #[id number], Partial fill upon patient request if the prescription is for a schedule II op... Start Date: 06/22/24 Status: Ordered Milk of Magnesia 8% oral suspension 30 mL = 2.4 Gm, By Mouth, Daily at bedtime, PRN for constipation, # 300 mL, 1 Refills, Maintenance,02/18/23 16:01:00 EDT, Suspension, [facility]/pharmacy #[id number], Partial fill upon patient request if the prescription is for a schedule II opioid drug., 167.6,... Start Date: 02/18/23 Status: Ordered omeprazole 40 mg oral enteric coated capsule 1 capsule, By Mouth, 2 times a day, # 180 capsule, 1 Refills, Maintenance, 06/22/24 14:37:00 EDT, [facility]/pharmacy #[id number], 167.6, cm, 06/22/24 13:58:00 EDT, Height, [...] 5 Refills,Maintenance, 05/01/23 9:50:00 EDT, [facility], 167.6, cm, 02/18/23 15:20:00 EDT, Height Start Date: 05/01/23 Status: Ordered simvastatin 20 mg oral tablet 1, tablet, By Mouth, Daily at bedtime, # 90 tablet, Refills 1, Tot. Refills 1, Maintenance, 07/29/24 14:20:00 EDT, Route to Pharmacy Electronically, [facility]/pharmacy #[id number], 167.6, cm, 07/24/24 14:25:00 EDT, Height, [...] bleeding 6 Confirmed 2011 Active *BHN/CCA/ONECARE/CP- Francisca [phone]/Health [facility], active care coordination Confirmed Active Premature ovarian [...] Personnel Name: Gosia OCONNELL, Randy Cook Position: [facility] Physician - Primary Care Member Role: PCP Address: Address: [address] [place] [address] [place] [address]- [place] Care Team Related Persons Name: SUDHIR SOSA Address: home [address] [facility] [address] [facility] [place] [address] Name: ZEYNEP SOSA Address: [place] [address] Name: ZEYNEP SOSA Address: home [address] [place] [address] Name: NONE, PT STATES
--- OUTSIDE RECORDS SUMMARY | 2024-08-19 00:46 | XMS_ITS | Continuity of Care Document ---
Author Organization [facility] Address [address] [place] [address]- Care Team Providers Care Certified Green Building Engineer Name Role Phone Gosia OCONNELL, Randy Cook Primary Care Physician [facility]): 11/19/23 - 12/19/23 [facility] [address] [place], [place] [address] Allergies, Adverse Reactions, Alerts No Known Allergies [...] 09/06/22 Recorded zoster vaccine, inactivated 04/13/22 Recorded [id number] bivalent booster vax 06/30/22 Recorded SARS-CoV-2 (COVID-19) mRNA BNT-162b2 vac 09/18/21 Given SARS-CoV-2 (COVID-19) mRNA-1273 vaccine 03/14/21 R ecorded SARS-CoV-2 (COVID-19) mRNA-1273 vaccine 02/14/21 R ecorded pneumococcal 23-valent vaccine 01/31/19 Recorded tetanus/diphtheria/pertussis, acel(Tdap) 02/14/17 Given Tet/Diphth/Acel, Pertussis (oldterm) 4 12/07/08 Gi rob 1Result Comment: [09/26/2015] ADMINISTERED AT [facility] 2Admin Note: VIS GIVEN-DATED 04/28/12 Administered at [facility] 3Admin Note: VIS [...] Refills, Maintenance, 08/24/22 16:57:00 EDT, [facility], 90, USE 2 SPRAYS IN EACH NOSTRIL DAILY, 167.6, cm, 07/23/22 13:04:00 EDT, Height Start Date: 08/24/22 Status: Ordered gabapentin 100 mg oral capsule 2, capsule, By Mouth, Daily at bedtime, # 60 capsule, Refills 11, Maintenance, 06/25/23 12:25:00 EDT, Route to Pharmacy Electronically, [facility] 74747, 167.6, cm, 05/27/23 15:30:00 EDT, Height Start [...] 5 Refills,Maintenance, 05/01/23 9:50:00 EDT, [facility], 167.6, cm, 02/18/23 15:20:00 EDT, Height Start Date: 05/01/23 Status: Ordered simvastatin 20 mg oral tablet 1, tablet, By Mouth, Daily at bedtime, # 90 tablet, Refills 1, Maintenance, 03/28/23 11:22:00 EDT, Route to Pharmacy Electronically, [facility] 94817, 167.6, cm, 02/18/23 15:20:00 EDT, Height Start [...] Personnel Name: Gosia OCONNELL, Randy Cook Position: [facility] Physician - Primary Care Member Role: PCP Address: Address: [facility] [address] [facility] [place] [address]- [place] Care Team Related Persons Name: SUDHIR SOSA Address: home [address] [facility] [address] [place] [address] Name: ZEYNEP SOSA Address: home [address] [place], [place] Name: ZEYNEP SOSA Address: home [address] [place], [place] Name: NONE, PT STATES
--- OUTSIDE RECORDS SUMMARY | 2024-08-19 00:46 | XMS_ITS | Continuity of Care Document ---
Author Organization [facility] Address [address] [place] [address]- Care Team Providers Care Passenger Conductor Name Role Phone Randy Elise MD Primary Care Physician [phone] [facility] 02[facility]19[facility]23 - 03/21/23 [facility] [address] [place], [place] [address] [[email or web address]] Allergies, Adverse Reactions, Alerts No Known Medication Allergies Immunizations Given and Recorded Vaccine Date Status Refusal Reason [id number] bivalent booster vax 06/30/22 Recorded influenza virus [...] Gi rob 1Result Comment: [09/26/2015] ADMINISTERED AT [facility] [employer] 2Ain Note: VIS GIVEN-DATED 04/28/12 Administered at [facility] 3Ain Note: VIS GIVEN 4Admin Note: VIS GIVEN Medications benztropine 0.5 mg oral tablet TAKE 1 TABLET BY MOUTH TWICE A DAY Start Date: 05/08/21 Status: Ordered bisacodyl 5 mg oral delayed release tablet 1 tablet = 5 mg, By Mouth, Daily, PRN as needed for constipation, # 50 tablet, 1 Refills, Maintenance, 02/18/23 16:01:00 EDT, CR Tablet, [facility]/pharmacy #[id number], Partial fill upon [...] Refills, Maintenance, 08/24/22 16:57:00 EDT, [facility], 90, USE 2 SPRAYS IN EACH NOSTRIL DAILY, 167.6, cm, 07/23/22 13:04:00 EDT, Height Start Date: 08/24/22 Status: Ordered gabapentin 100 mg oral capsule 200 mg, 2, capsule, By Mouth, Daily at bedtime, # 60 capsule, Refills 11, Tot. Refills 11, Maintenance, 06/11/22 12:04:00 EDT, Route to Pharmacy Electronically, [facility]/pharmacy #[id number], Dose INCREASED 02/05/22. Please disregard last prescription, 167.6, cm,... Start Date: 06/11/22 Status: Ordered Milk of Magnesia 8% oral suspension 30 mL = 2.4 Gm, By Mouth, Daily at bedtime, PRN for constipation, # 300 mL, 1 Refills, Maintenance,02/18/23 16:01:00 EDT, Suspension, [facility]/pharmacy #0843, Partial fill upon patient request if the prescription is for a schedule II opioid drug., 167.6,... Start Date: 02/18/23 Status: Ordered omeprazole 40 mg oral enteric coated capsule 1 capsule, By Mouth, 2 times a day, # 180 capsule, 0 Refills, Maintenance, 02/04/23 15:01:00 EDT, [facility], 167.6, cm, 12/11/22 8:04:00 EST, Height Start [...] 60 tablet, 1 Refills,Maintenance, 02/04/23 15:01:00 EDT, [facility] 65218, 167.6, cm, 12/11/22 8:04:00 EST, Height Start Date: 02/04/23 Status: Ordered simvastatin 20 mg oral tablet 1, tablet, By Mouth, Daily at bedtime, # 90 tablet, Refills 1, Tot. Refills 1, 12/04/22 13:56:00 EST, Route to Pharmacy Electronically, [facility]/pharmacy #[id number], 167.6, cm, 09/27/22 11:25:00 [...] Personnel Name: Gosia OCONNELL, Randy Cook Position: [facility] Physician - Primary Care Member Role: PCP Address: Address: [facility] [address] [facility] [place] [address]- [place] Care Team Related Persons Name: SUDHIR SOSA Address: home [address] [facility] [address] [place] [address] Name: ZEYNEP SOSA Address: home [address] [place], [place] Name: ZEYNEP SOSA Address: home [address] [place], [place] Name: NONE, PT STATES
--- OUTSIDE RECORDS SUMMARY | 2024-08-19 00:46 | XMS_ITS | Continuity of Care Document ---
Author Organization [facility] Address [address] [place] [address]- Care Team Providers Care Barrel Charrer Helper Name Role Phone Gosia OCONNELL, Randy Cook Primary Care Physician [facility] 03/27/21 - 04/26/21 [facility] [address] [place], [place] [address] Allergies, Adverse Reactions, Alerts No Known Medication Allergies Immunizations Given and Recorded Vaccine Date Status Refusal Reason tetanus/diphtheria/pertussis, acel(Tdap) 02/14/17 Given influenza virus vaccine, inactivated 1 06/27/15 Re corded influenza virus vaccine, inactivated 2 06/20/12 Gi rob influenza virus vaccine, inactivated 3 12/07/08 Gi rob Tet/Diphth/Acel, Pertussis (oldterm) 4 12/07/08 Gi rob 1Result Comment: [09/26/2015] ADMINISTERED AT [employer] 2Admin Note: VIS GIVEN-DATED 04/28/12 Administered at [facility] 3Admin Note: VIS GIVEN 4Admin Note: VIS GIVEN Medications benztropine 0.5 mg oral tablet 0.5 mg, 1, tablet, By Mouth, 2 times a day, # 60 tablet, Refills 1, Tot. Refills 1, Maintenance, 05/11/19 14:23:19 EDT, Route to Pharmacy Electronically, [id number], [facility]/pharmacy #[id number] Start Date: 05/11/19 Stop Date: 07/10/19 [...] Gm, 2 Refills, Maintenance, 03/28/21 9:37:00 EDT, [place],[facility]/pharmacy #[id number], Partial fill upon patient request if [...] 09/14/19 13:00:46 EST, Route to Pharmacy Electronically, [id number], [facility]/pharmacy #[id number] Start Date: 09/14/19 Status: Ordered FLUoxetine 20 mg oral capsule 20 mg, 1, capsule, By Mouth, Daily, Take with Fluoxetine 10mg capsule (total dose = 30mg daily)., #30 capsule, Refills 5, Tot. Refills 5, Maintenance, 09/14/19 13:00:56 EST, Route to Pharmacy Electronically, [id number], [facility]/... Start Date: 09/14/19 Status: Ordered LORazepam 0.5 [...] Refills, Maintenance, 03/28/21 9:38:00 EDT, REC Powder, [facility]/pharmacy #[id number], Partial fill upon patient request if the prescription is for a schedule II opioid drug... Start Date: 03/28/21 Status: Ordered omeprazole 40 mg oral enteric coated capsule 1 capsule = 40 mg, By Mouth, 2 times a day, # 180 capsule, 0 Refills, Maintenance, 04/10/21 8:13:00EDT, EC Capsule, [facility]/pharmacy #[id number], 167.6, cm, 08/23/20 12:36:00 EDT, Height, [...] Refills, Maintenance, 03/28/21 9:37:00 EDT, REC Powder, [facility]/pharmacy #[id number], Partial fill upon patient request if the prescription is for a schedule II opioid drug., 167.6, cm, 03/28/21 8:40:00 EDT, Height, 63.1,... Start Date: 03/28/21 Status: Ordered risperiDONE 3 mg oral tablet See Instructions, TAKE 1/2 TABLET BY MOUTH TWICE A DAY, # 30 tablet, Refills 2, Tot. Refills 2, Maintenance, 09/14/19 13:00:55 EST, Instructions Replace Required Details, Route to Pharmacy Electronically, [id number], [facility]/phar... Start Date: 09/14/19 Status: Ordered simvastatin 20 mg oral tablet 1, tablet, By Mouth, Daily at bedtime, # 90 tablet, Refills 1, Tot. Refills 0, Maintenance, 03/28/21 9:34:00 EDT, Route to Pharmacy Electronically, [facility] STORE 13288, 167.6, cm, 03/28/21 8:40:00 EDT, Height, 63.1, [...]
--- OUTSIDE RECORDS SUMMARY | 2024-08-19 00:46 | XMS_ITS | Continuity of Care Document ---
Author Organization [facility] Adult [facility] Address [address] [place] [address]- Care Team Providers Care Pricing Supervisor Name Role Phone Gosia OCONNELL, Randy Cook Primary Care Physician [facility]): 03[facility]17[facility]24 - 04/16/24 [facility] [address] [place], [place] [phone] Attending Physician: Admtr, Jocelyn Allergies, Adverse Reactions, [...] 09/06/22 Recorded zoster vaccine, inactivated 04/13/22 Recorded [id number] bivalent booster vax 06/30/22 Recorded SARS-CoV-2 (COVID-19) mRNA BNT-162b2 vac 09/18/21 Given SARS-CoV-2 (COVID-19) mRNA-1273 vaccine 03/14/21 R ecorded SARS-CoV-2 (COVID-19) mRNA-1273 vaccine 02/14/21 R ecorded pneumococcal 23-valent vaccine 01/31/19 Recorded tetanus/diphtheria/pertussis, acel(Tdap) 02/14/17 Given Tet/Diphth/Acel, Pertussis (oldterm) 4 12/07/08 Gi rob 1Result Comment: [09/26/2015] ADMINISTERED AT [facility] 2Admin Note: VIS GIVEN-DATED 04/28/12 Administered at [facility] 3Admin Note: VIS GIVEN [...] Maintenance, 02/18/23 16:01:00 EDT, CR Tablet, [facility]/pharmacy #[id number], Partial fill upon patient request [...] Refills, Maintenance, 08/24/22 16:57:00 EDT, [facility], 90, USE 2 SPRAYS IN EACH NOSTRIL DAILY, 167.6, cm, 07/23/22 13:04:00 EDT, Height Start Date: 08/24/22 Status: Ordered gabapentin 100 mg oral capsule 2, capsule, By Mouth, Daily at bedtime, # 60 capsule, Refills 11, Maintenance, 06/25/23 12:25:00 EDT, Route to Pharmacy Electronically, [facility] 0[facility]24, 167.6, cm, 05/27/23 15:30:00 EDT, Height Start [...] 5 Refills,Maintenance, 05/01/23 9:50:00 EDT, [facility], 167.6, cm, 02/18/23 15:20:00 EDT, Height Start Date: 05/01/23 Status: Ordered simvastatin 20 mg oral tablet 1, tablet, By Mouth, Daily at bedtime, # 90 tablet, Refills 1, Maintenance, 03/12/24 15:43:00 EDT, Route to Pharmacy Electronically, [facility], 167.6, cm, 08/29/23 11:50:00 EDT, Height, 77.2, [...] bleeding 6 Confirmed 2011 Active *BHN/CCA/ONECARE/CP- Francisca [phone]/Health [facility], active care coordination Confirmed Active Premature ovarian [...] VERIFY Event Display: Patient Education/Instruction Authored Date: [id number] [facility] Clinical Summary Person Information Visit Date 10/01/2018 10:20 AM Name SRINATH SOSA Age 48 Years 1970 12:00 AM PCP Randy Elise MD PCP Sex Female Race White Ethnicity Non-/Non- Language Romanian You can now view a summary of your hospital visit from the comfort of your home through a free online portal called Advise Only. Advise Only is a website that allows you to securely view your medical information including discharge summary, medications and follow-up visits. You can also send a secure electronic message to your doctor???s office to request appointments, renew medicationsor just ask a question. You can enroll at [email or web address] or register during your next office visit. Smoking can increase your chances of developing chronic health problems and can cause harmful effects to other family members in your house. If you smoke, you are strongly encouraged to quit. Please call the [place] Smokers??? Helpline at 2-475-SNFSNOW (or ) or log on to [email or web address] for more information. The National Suicide Prevention Hotline is available 20/05 if you or someone you know needs to find a reason to keep living. By calling 2-351-563-caji (5527) you'll be connected to a skilled, trained [...] primary care provider, you may find a [facility] provider by calling [facility] at [phone]. For information about the plan of care including goals and instructions for your diagnosis, please see the patient education orders section of this document. Patient Visit Summary: Future Appointments: Type Location Start [facility] Screening Mammo [facility] 10/27/2018 3:15 PM 10/27/2018 3:30 PM Pending Follow-Up Instructions Patient Education Materials Additional Instructions: Patient Care team information Care Team Personnel Name: Randy Elise MD Position: S Physician - Primary Care Member Role: PCP Address: Address: [address] [place] [address] [place] [address]- Care Team Related Persons Name: SUDHIR SOSA Address: home [address] [facility] [address] [place] [address] Name: ZEYNEP SOSA Address: [place] [address] Name: ZEYNEP SOSA Address: home [address] [place] [address] Name: NONE, PT STATES
--- OUTSIDE RECORDS SUMMARY | 2024-08-19 00:46 | XMS_ITS | Continuity of Care Document ---
Author Organization [facility] Address [address] [place] [address]- Care Team Providers Care Lithographing Machine Operator Name Role Phone Randy Elise MD Primary Care Physician [facility] 12/07[facility]22 - 01/06/23 [facility] [address] [place], [place] [address] Allergies, Adverse Reactions, Alerts No Known [...] Gi rob 1Result Comment: [09/26/2015] ADMINISTERED AT [facility] 2Admin Note: VIS GIVEN-DATED 04/28/12 Administered at [facility] 3Admin Note: VIS GIVEN [...] mL, 1 Refills, Maintenance, 08/24/22 16:57:00 EDT, [facility] STORE 13564, 90, USE 2 SPRAYS IN EACH NOSTRIL DAILY, 167.6, cm, 07/23/22 13:04:00 EDT, Height Start Date: 08/24/22 Status: Ordered gabapentin 100 mg oral capsule 200 mg, 2, capsule, By Mouth, Daily at bedtime, # 60 capsule, Refills 11, Tot. Refills 11, Maintenance, 06/11/22 12:04:00 EDT, Route to Pharmacy Electronically, [facility]/pharmacy #0843, Dose INCREASED 02/05/22. Please disregard last prescription, 167.6, cm,... Start Date: 06/11/22 Status: Ordered omeprazole 40 mg oral enteric coated capsule 1 capsule, By Mouth, 2 times a day, # 180 capsule, 0 Refills, Maintenance, 10/19/22 15:48:00 EST, [facility]/pharmacy #0843, 167.6, cm, 09/27/22 11:25:00 EST, Height Start Date: 10/19/22 Status: Ordered prazosin 1 mg oral capsule [...] FOR CONSTIPATION, # 60 tablet, 1 Refills,Maintenance, 12/27/22 9:35:00 EST, [facility], 167.6, cm, 12/11/22 8:04:00 EST, Height Start Date: 12/27/22 Status: Ordered simvastatin 20 mg oral tablet 1, tablet, By Mouth, Daily at bedtime, # 90 tablet, Refills 1, Tot. Refills 1, 12/04/22 13:56:00 EST, Route to Pharmacy Electronically, [facility]/pharmacy #0843, 167.6, cm, 09/27/22 11:25:00 EST, Height [...] Team Personnel Name: Randy Elise MD Position: [facility] Primary Care Physician Member Role: PCP Address: Address: [address] [place] [address] [place] [address]- Care Team Related Persons Name: SUDHIR SOSA Address: home [address] [place] [id number] Name: ZEYNEP SOSA Address: home [address] [place] [address] Name: ZEYNEP SOSA Address: [place] [address] Name: NONE, PT STATES
--- OUTSIDE RECORDS SUMMARY | 2024-08-19 00:46 | XMS_ITS | Continuity of Care Document ---
Author Organization [facility] y Address [address] [place] [address]- Care Team Providers Care Forestry Tree Pruner Name Role Phone Gosia OCONNELL, Randy Cook Primary Care Physician [phone] Encounter [facility] Date(s): 11/30/19 - 12/10/19 [facility] [address] [place] [address]- Attending Physician: Jocelyn Mcclendon Admitting Physician: Admtr, Jocelyn Referring Physician: Admtr, Ar8 Allergies, Adverse Reactions, Alerts No Known Medication Allergies Immunizations Given and Recorded Vaccine Date Status Refusal Reason tetanus/diphtheria/pertussis, acel(Tdap) 02/14/17 Given influenza virus vaccine, inactivated 1 06/27/15 Re corded influenza virus vaccine, inactivated 2 06/20/12 Gi rob influenza virus vaccine, inactivated 3 12/07/08 Gi rob Tet/Diphth/Acel, Pertussis (oldterm) 4 12/07/08 Gi rob 1Result Comment: [09/26/2015] ADMINISTERED AT [facility] [employer] 2Admin Note: VIS GIVEN-DATED 04/28/12 Administered at [facility] 3Admin Note: VIS GIVEN 4Admin Note: VIS GIVEN Medications benztropine 0.5 mg oral tablet 0.5 mg, 1, tablet, By Mouth, 2 times a day, # 60 tablet, Refills 1, Tot. Refills 1, Maintenance, 05/11/19 14:23:19 EDT, Route to Pharmacy Electronically, [id number], [facility]/pharmacy #[id number] Start [...] 09/14/19 13:00:46 EST, Route to Pharmacy Electronically, [id number], [facility]/pharmacy #[id number] Start Date: 09/14/19 Status: Ordered FLUoxetine 20 mg oral capsule 20 mg, 1, capsule, By Mouth, Daily, Take with Fluoxetine 10mg capsule (total dose = 30mg daily)., #30 capsule, Refills 5, Tot. Refills 5, Maintenance, 09/14/19 13:00:56 EST, Route to Pharmacy Electronically, [id number], [facility]/... Start Date: 09/14/19 Status: Ordered LORazepam [...] Replace Required Details, Route to Pharmacy Electronically, [id number], [facility]/phar... Start Date: 09/14/19 Status: Ordered simvastatin 20 mg oral tablet 20 mg, 1, tablet, By Mouth, Daily at bedtime, for 30 days, # 30 tablet, Refills 2, Tot. Refills 2, Hard Stop 12/27/19 17:11:26 EST, 09/28/19 17:11:26 EST, Route to Pharmacy Electronically, [id number], [facility]/pharmacy #[id number] Start Date: 09/28/19 Stop Date: [...]
--- OUTSIDE RECORDS SUMMARY | 2024-08-19 00:46 | XMS_ITS | Continuity of Care Document ---
Author Organization [facility] Address [address] [place] [address]- Care Team Providers Care Sales Representative Raw Fibers Name Role Phone Gosia OCONNELL, Randy Cook Primary Care Physician [phone] Encounter [facility] Date(s): 10/26/21 - 11/25/[address] [address]- Attending Physician: Jocelyn Mcclendon Admitting Physician: AdmJocelyn rosen Referring Physician: AdmtrJocelyn Allergies, Adverse Reactions, Alerts [...] Gi rob 1Result Comment: [09/26/2015] ADMINISTERED AT [facility] 2Admin Note: VIS GIVEN-DATED 04/28/12 Administered at [facility] 3Admin Note: VIS GIVEN 4Admin Note: VIS GIVEN Medications Augmentin 875 mg-125 mg oral tablet 1 tablet, By Mouth, 2 times a day, # 14 tablet, 0 Refills, Acute 12/03/21 9:34:00 EST, 11/02/21 9:34:00 EST, [facility]/pharmacy #[id number], Partial fill upon patient request if the prescription is for a schedule II opioid drug., 167.6, cm, 11/02/21 9:05:00 EST,... Start Date: 11/02/21 Stop Date: 12/03/21 Status: Ordered benztropine 0.5 mg oral tablet TAKE 1 TABLET BY MOUTH TWICE A DAY Start Date: 05/08/21 Status: Ordered Flonase 50 mcg/inh nasal spray 2 sprays, Nares, Both, Daily, # 16 Gm, 2 Refills, Maintenance, 09/18/21 14:11:00 EST, [place], [facility]/pharmacy #[id number], Partial fill upon patient request if the prescription is for a schedule II opioid drug., 2 sprays Nares, Both Daily, 167.6, cm, 09/18/21 1... Start Date: 09/18/21 Status: Ordered FLUoxetine 20 mg oral capsule 20 mg, 1, capsule, By Mouth, Daily, # 30 capsule, Refills 0, Maintenance, 05/08/21 10:53:00 EDT, Partial fill upon patient request if the prescription is for a schedule II opioid drug. Start Date: 05/08/21 Status: Ordered omeprazole 40 mg oral enteric coated capsule 1 capsule, By Mouth, 2 times a day, # 180 capsule, 1 Refills, [facility] STORE 80011, 167.6, cm, 09/29/21 11:56:00 EST, Height Start [...] Refills, Maintenance, 03/28/21 9:37:00 EDT, REC Powder, [facility]/pharmacy #[id number], Partial fill upon patient request if [...] 09/18/21 13:57:00 EST, Route to Pharmacy Electronically, [facility]/pharmacy #0843 Tablet,Partial fill upon patient request if the prescripti... Start Date: 09/18/21 Status: Ordered simvastatin 20 mg oral tablet 1, tablet, By Mouth, Daily at bedtime, # 90 tablet, Refills 1, Route to Pharmacy Electronically, [facility] STORE 19881, 167.6, cm, 11/02/21 9:05:00 EST, Height Start Date: 11/03/21 Status: Ordered Ventolin HFA 108 mcg/inh inhalation aerosol with adapter 1 puffs, Inhalation, 4 times a day, PRN for wheezing, # 8 Gm, 1 Refills, Maintenance, 05/04/20 15:51:00 EDT, Aerosol, [facility]/pharmacy #0843, 165.1, cm, 04/07/20 10:09:00 EDT, Height, [...]
--- OUTSIDE RECORDS SUMMARY | 2024-08-19 00:46 | XMS_ITS | Continuity of Care Document ---
Author Organization [facility] Address [address] [place] [address]- Care Team Providers Care Tab Card Press Operator Name Role Phone Gosia OCONNELL, Randy Cook Primary Care Physician [facility] Date(s): 07/08/24 - 08/07/24 [facility] [address] [place], [place] [phone] Allergies, Adverse Reactions, Alerts No Known Allergies [...] 09/06/22 Recorded zoster vaccine, inactivated 04/13/22 Recorded [id number] bivalent booster vax 06/30/22 Recorded SARS-CoV-2 (COVID-19) mRNA BNT-162b2 vac 09/18/21 Given SARS-CoV-2 (COVID-19) mRNA-1273 vaccine 03/14/21 R ecorded SARS-CoV-2 (COVID-19) mRNA-1273 vaccine 02/14/21 R ecorded pneumococcal 23-valent vaccine 01/31/19 Recorded tetanus/diphtheria/pertussis, acel(Tdap) 02/14/17 Given Tet/Diphth/Acel, Pertussis (oldterm) 12/07/08 Gi rob 1Result Comment: [09/26/2015] ADMINISTERED AT [facility] 2Ain Note: VIS GIVEN-DATED 04/28/12 Administered at [facility] 3Admin Note: VIS GIVEN 4Admin Note: [...] Refills, Maintenance, 02/18/23 16:01:00 EDT, CR Tablet, [facility]/pharmacy #[id number], Partial fill upon patient request if the prescription is for a schedule II opioid drug., 167.6... Start Date: 02/18/23 Status: Ordered docusate sodium 100 mg oral capsule 100 mg, 1, capsule, By Mouth, 2 times a day, take twice a day to prevent constipation., # 60 capsule, Refills 11, Tot. Refills 11, Maintenance, 06/22/24 14:31:00 EDT, Route to Pharmacy Electronically, [facility]/pharmacy #[id number], Partial fill upon patient requ... Start Date: 06/22/24 Status: Ordered esomeprazole 40 mg oral enteric coated capsule 1 capsule = 40 mg, By Mouth, 2 times a day, Stop Omeprazole. Take on an emoty stomach., # 60 capsule, 6 Refills, Maintenance, 08/06/24 14:33:00 EDT, CR Capsule, [facility]/pharmacy #[id number], Partial fill upon patient [...] Refills, Maintenance, 08/24/22 16:57:00 EDT, [facility], 90, USE 2 SPRAYS IN EACH NOSTRIL DAILY, 167.6, cm, 07/23/22 13:04:00 EDT, Height Start Date: 08/24/22 Status: Ordered gabapentin 100 mg oral capsule 2, capsule, By Mouth, Daily at bedtime, # 60 capsule, Refills 11, Maintenance, 06/25/23 12:25:00 EDT, Route to Pharmacy Electronically, [facility], 167.6, cm, 05/27/23 15:30:00 EDT, Height Start [...] capsule, 1 Refills, Maintenance, 06/22/24 14:37:00 EDT, [facility]/pharmacy #[id number], 167.6, cm, 06/22/24 13:58:00 EDT, Height, [...] 60 tablet, 5 Refills,Maintenance, 05/01/23 9:50:00 EDT, [facility] STORE 73612, 167.6, cm, 02/18/23 15:20:00 EDT, Height Start Date: 05/01/23 Status: Ordered simvastatin 20 mg oral tablet 1, tablet, By Mouth, Daily at bedtime, # 90 tablet, Refills 1, Tot. Refills 1, Maintenance, 07/29/24 14:20:00 EDT, Route to Pharmacy Electronically, [facility]/pharmacy #[id number], 167.6, cm, 07/24/24 14:25:00 EDT, Height, [...] rectal bleeding 6 Confirmed 2011 Active *BHN/CCA/ONECARE/CP- ShivaniylaRivera [phone]/Health fpc, active care coordination Confirmed Active Premature [...] Team Personnel Name: Randy Elise MD Position: [facility] Physician - Primary Care Member Role: PCP Address: Address: [address] [place] [address] [place] [address]- Care Team Related Persons Name: SUDHIR SOSA Address: home [address] [address] Name: ZEYNEP SOSA Address: home [address] [place] [address] Name: ZEYNEP SOSA Address: [place] [address] Name: NONE, [facility]
--- OUTSIDE RECORDS SUMMARY | 2024-08-19 00:46 | XMS_ITS | Continuity of Care Document ---
Author Organization [facility] Address [address] [place] [address] [address] [place] [address]- Care Team Providers Care Craft Artist Name Role Phone Randy Elise MD Primary Care Physician [phone] Encounter [facility] Date(s): 05/27/23 - 06/03/[address] [place] [address]- Encounter Diagnosis Painful rectal bleeding(Discharge Diagnosis) - 05/27/23 Attending Physician: Palmira Carreno NP Referring Physician: Randy Elise MD Allergies, Adverse Reactions, Alerts No Known Medication Allergies Immunizations Given and Recorded Vaccine Date Status Refusal Reason [id number] bivalent booster vax 06/30/22 Recorded influenza virus [...] rob 1Result Comment: [09/26/2015] ADMINISTERED AT [facility] 2Admin Note: VIS GIVEN-DATED 04/28/12 Administered at [facility] 3Admin Note: VIS GIVEN 4Admin Note: [...] Refills, Maintenance, 02/18/23 16:01:00 EDT, CR Tablet, [facility]/pharmacy #[id number], Partial fill upon [...] Refills, Maintenance, 08/24/22 16:57:00 EDT, [facility], 90, USE 2 SPRAYS IN EACH NOSTRIL DAILY, 167.6, cm, 07/23/22 13:04:00 EDT, Height Start Date: 08/24/22 Status: Ordered gabapentin 100 mg oral capsule 200 mg, 2, capsule, By Mouth, Daily at bedtime, # 60 capsule, Refills 11, Tot. Refills 11, Maintenance, 06/11/22 12:04:00 EDT, Route to Pharmacy Electronically, [facility]/pharmacy #[id number], Dose INCREASED 02/05/22. Please disregard last prescription, 167.6, cm,... Start Date: 06/11/22 Status: Ordered Milk of Magnesia 8% oral suspension 30 mL = 2.4 Gm, By Mouth, Daily at bedtime, PRN for constipation, # 300 mL, 1 Refills, Maintenance,02/18/23 16:01:00 EDT, Suspension, [facility]/pharmacy #0843, Partial fill upon patient request if the prescription is for a schedule II opioid drug., 167.6,... Start Date: 02/18/23 Status: Ordered omeprazole 40 mg oral enteric coated capsule 1 capsule, By Mouth, 2 times a day, # 180 capsule, 1 Refills, Maintenance, 05/20/23 14:10:00 EDT, [facility], 167.6, cm, 05/06/23 11:25:00 EDT, Height Start [...] 5 Refills,Maintenance, 05/01/23 9:50:00 EDT, [facility], 167.6, cm, 02/18/23 15:20:00 EDT, Height Start Date: 05/01/23 Status: Ordered simvastatin 20 mg oral tablet 1, tablet, By Mouth, Daily at bedtime, # 90 tablet, Refills 1, Maintenance, 03/28/23 11:22:00 EDT, Route to Pharmacy Electronically, [facility], 167.6, cm, 02/18/23 15:20:00 EDT, Height Start [...] history of cancer: mom's sister, cancer, in , unknown type Confirmed Active Family history of [...] Diagnosis Diagnosis Type Effective Dates Health Status Cl inical Service Informant Painful rectal bleeding Discharge Diagnosis 05/27/23 Vital Signs Most recent to oldest [Reference Range]: 1 Height 167.6 cm (05/27/23 3:30 PM) Weight 77.4 kg (05/27/23 3:30 PM) Pulse Rate [55-90 bpm] 83 bpm (05/27/23 3:30 PM) Body Mass Index [18.5-24.99 kg/m2] 27.55 kg/m2 *H* (05/27/23 3:30 PM) Blood Pressure [90-138/55-84 mm Hg] 114/ 75mm Hg (05/27/23 3:30 PM) Respiratory Rate [16-30 br/min] 20 br/mi n (05/27/23 3:30 PM) Temperature [96.8-100.4 DegF] 97.5 DegF (05/27/23 3:30 PM) Blood pressure sites Arm, right (05/27/23 3:30 PM) Temperature Route Temporal (05/27/23 3:30 PM) Weight Obtained Via Standing scale (05/27/23 3:30 PM) Social History Social History Type Response Smoking Status Never smoker entered on: 12/31/13 Sex Female Patient Care team information Care Team Personnel Name: Randy Elise MD Position: S Physician - Primary Care Member Role: PCP Address: Address: [address] [place] [address] [place] [address]- Care Team Related Persons Name: SUDHIR SOSA Address: home [address] [place] [address] [address] [place] [address] Name: ZEYNEP SOSA Address: home [address] [place], [place] Name: ZEYNEP SOSA Address: home [place], [place] Name: NONE, PT STATES
--- OUTSIDE RECORDS SUMMARY | 2024-08-19 00:46 | XMS_ITS | Continuity of Care Document ---
Author Organization [facility] Address [address] [place] [address]- Care Team Providers Care Crm Manager Name Role Phone Gosia OCONNELL, Randy Cook Primary Care Physician [facility]counter [facility] Date(s): 12/17/19 - 03/10/[address] [address] Attending Physician: Jonny Mendez MD Admitting Physician: Jonny Mendez MD Allergies, Adverse Reactions, Alerts No Known Medication Allergies Immunizations Given and Recorded Vaccine Date Status Refusal Reason tetanus/diphtheria/pertussis, acel(Tdap) 02/14/17 Given influenza virus vaccine, inactivated 1 06/27/15 Re corded influenza virus vaccine, inactivated 2 06/20/12 Gi rob influenza virus vaccine, inactivated 3 12/07/08 Gi orb Tet/Diphth/Acel, Pertussis (oldterm) 4 12/07/08 Gi rob 1Result Comment: [09/26/2015] [facility] 2Admin Note: VIS GIVEN-DATED 04/28/12 Administered at [facility] 3Admin Note: VIS GIVEN 4Admin Note: VIS GIVEN Medications benztropine 0.5 mg oral tablet 0.5 mg, 1, tablet, By Mouth, 2 times a day, # 60 tablet, Refills 1, Tot. Refills 1, Maintenance, 05/11/19 14:23:19 EDT, Route to Pharmacy Electronically, [id number], [facility]/pharmacy #[id number] Start Date: 05/11/19 Stop Date: [...] 09/14/19 13:00:46 EST, Route to Pharmacy Electronically, [id number], [facility]/pharmacy #[id number] Start Date: 09/14/19 Status: Ordered FLUoxetine 20 mg oral capsule 20 mg, 1, capsule, By Mouth, Daily, Take with Fluoxetine 10mg capsule (total dose = 30mg daily)., #30 capsule, Refills 5, Tot. Refills 5, Maintenance, 09/14/19 13:00:56 EST, Route to Pharmacy Electronically, [id number], [facility]... Start Date: 09/14/19 Status: Ordered LORazepam [...] mL, 0 Refills, Maintenance, 12/10/19 16:20:00 EST, [facility]/pharmacy #[id number], 240 mL By Mouth Every [...] Replace Required Details, Route to Pharmacy Electronically, [id number], [facility]/phar... Start Date: 09/14/19 Status: Ordered Ventolin HFA [...]
--- OUTSIDE RECORDS SUMMARY | 2024-08-19 00:46 | XMS_ITS | Continuity of Care Document ---
Author Organization [facility] Address [address] [place] [address]- Care Team Providers Care Smash Piecer Name Role Phone Randy Elise MD Primary Care Physician Encounter [facility] Date(s): 11/02/21 - 01/03/22 [facility] [address] [place] [address]- Attending Physician: Randy Elise MD Admitting Physician: [...] Gi rob 1Result Comment: [09/26/2015] ADMINISTERED AT [email or web address] 2Admin Note: VIS GIVEN-DATED 04/28/12 Administered at [facility] 3Admin Note: VIS GIVEN 4Admin [...] # 48 mL, 1 Refills, [facility], 90, USE 2 SPRAYS IN EACH NOSTRIL DAILY, 167.6, cm, 11/02/21 9:05:00 EST, Height Start Date: 12/11/21 Status: Ordered gabapentin 100 mg oral capsule 100 mg, 1, capsule, By Mouth, Daily at bedtime, # 30 capsule, Refills 1, Tot. Refills 1, Maintenance, 12/25/21 15:07:00 EST, Route to Pharmacy Electronically, [facility]/pharmacy #[id number], Partial fill upon patient request if the prescription is for a schedule... Start Date: 12/25/21 Status: Ordered omeprazole 40 mg oral enteric coated capsule 1 capsule, By Mouth, 2 times a day, # 180 capsule, 1 Refills, [facility], 167.6, cm, 09/29/21 11:56:00 EST, Height Start [...] Refills, Maintenance, 03/28/21 9:37:00 EDT, REC Powder, [facility]/pharmacy #[id number], Partial fill upon patient request [...] 09/18/21 13:57:00 EST, Route to Pharmacy Electronically, [facility]/pharmacy #0843 Tablet,Partial fill upon patient request if [...] tablet, Refills 1, Route to Pharmacy Electronically, [facility] ST[facility] 28983, 167.6, cm, 11/02/21 9:05:00 EST, Height Start Date: 11/03/21 Status: Ordered Ventolin HFA 108 mcg/inh inhalation aerosol with adapter 1 puffs, Inhalation, 4 times a day, PRN for wheezing, # 8 Gm, 1 Refills, Maintenance, 05/04/20 15:51:00 EDT, Aerosol, [facility]/pharmacy #0843, 165.1, cm, 04/07/20 10:09:00 EDT, Height, [...]
--- OUTSIDE RECORDS SUMMARY | 2024-08-19 00:46 | XMS_ITS | Continuity of Care Document ---
Author Organization [facility] Address [address] [place] [address]- Care Team Providers Care Medical Insurance Verifier Name Role Phone Randy Elise MD Primary Care Physician [phone] Encounter [facility] Date(s): 09/27/22 - 10/27/22 [facility] [address] [place] [address]- Attending Physician: Jocelyn Mcclendon Admitting Physician: AdmtrJocelyn Referring Physician: Admtr, ArLakshmi Allergies, Adverse Reactions, Alerts No Known Medication [...] 1Result Comment: [09/26/2015] ADMINISTERED AT [facility] 2Ain Note: VIS GIVEN-DATED 04/28/12 Administered at [facility] 3Admin Note: VIS GIVEN 4Admin Note: [...] Refills, Maintenance, 08/24/22 16:57:00 EDT, [facility], 90, USE 2 SPRAYS IN EACH NOSTRIL DAILY, 167.6, cm, 07/23/22 13:04:00 EDT, Height Start Date: 08/24/22 Status: Ordered gabapentin 100 mg oral capsule 200 mg, 2, capsule, By Mouth, Daily at bedtime, # 60 capsule, Refills 11, Tot. Refills 11, Maintenance, 06/11/22 12:04:00 EDT, Route to Pharmacy Electronically, [facility]/pharmacy #[id number], Dose INCREASED 02/05/22. Please disregard last prescription, 167.6, cm,... Start Date: 06/11/22 Status: Ordered omeprazole 40 mg oral enteric coated capsule 1 capsule, By Mouth, 2 times a day, # 180 capsule, 0 Refills, Maintenance, 10/19/22 15:48:00 EST, [facility]/pharmacy #0843, 167.6, cm, 09/27/22 11:25:00 EST, [...] FOR CONSTIPATION, # 60 tablet, 1 Refills,Maintenance, 10/19/22 16:15:00 EST, [facility] 82[facility], 167.6, cm, 09/27/22 11:25:00 EST, Height Start Date: 10/19/22 Status: Ordered simvastatin 20 mg oral tablet 1, tablet, By Mouth, Daily at bedtime, # 90 tablet, Refills 1, Route to Pharmacy Electronically, [facility] 07394, 167.6, cm, 01/25/22 9:20:00 EDT, Height Start [...] Personnel Name: Randy Elise MD Position: S Primary Care Physician Member Role: PCP Address: Address: [address] [place] [address] [place] [address]- Care Team Related Persons Name: SUDHIR SOSA Address: home [address] [place] [address] [address] [facility] [place] [address] Name: ZEYNEP SOSA Address: home [place] [address] Name: ZEYNEP SOSA Address: home [address] [place] [address] Name: NONE, PT STATES
--- OUTSIDE RECORDS SUMMARY | 2024-08-19 00:46 | XMS_ITS | Continuity of Care Document ---
Author Organization [facility] Address [address] [place] [address]- Care Team Providers Care Oyster Harvester Name Role Phone Randy Elise MD Primary Care Physician [facility] Date(s): 09/19/21 - 12/02/21 [facility] [address] [place] [address]- Attending Physician: Randy Elise MD Admitting Physician: [...] Gi rob 1Result Comment: [09/26/2015] ADMINISTERED AT [facility] 2Admin Note: VIS GIVEN-DATED 04/28/12 Administered at [facility] 3Admin Note: VIS GIVEN 4Admin Note: VIS GIVEN Medications Augmentin 875 mg-125 mg oral tablet 1 tablet, By Mouth, 2 times a day, # 14 tablet, 0 Refills, Acute 12/03/21 9:34:00 EST, 11/02/21 9:34:00 EST, [facility]/pharmacy #0843, Partial fill upon patient [...] Gm, 2 Refills, Maintenance, 09/18/21 14:11:00 EST, [place], [facility]/pharmacy #0843, Partial fill upon patient [...] a day, # 180 capsule, 1 Refills, [facility] STORE 41653, 167.6, cm, 09/29/21 11:56:00 EST, Height Start [...] Refills, Maintenance, 03/28/21 9:37:00 EDT, REC Powder, [facility]/pharmacy #0843, Partial fill upon patient [...] 09/18/21 13:57:00 EST, Route to Pharmacy Electronically, [facility]/pharmacy #0843 Tablet,Partial fill upon patient request if the prescripti... Start Date: 09/18/21 Status: Ordered simvastatin 20 mg oral tablet 1, tablet, By Mouth, Daily at bedtime, # 90 tablet, Refills 1, Route to Pharmacy Electronically, [facility], 167.6, cm, 11/02/21 9:05:00 EST, Height Start Date: 11/03/21 Status: Ordered Ventolin HFA 108 mcg/inh inhalation aerosol with adapter 1 puffs, Inhalation, 4 times a day, PRN for wheezing, # 8 Gm, 1 Refills, Maintenance, 05/04/20 15:51:00 EDT, Aerosol, [facility]/pharmacy #0843, 165.1, cm, 04/07/20 10:09:00 EDT, Height, [...]
--- OUTSIDE RECORDS SUMMARY | 2024-08-19 00:46 | XMS_ITS | Continuity of Care Document ---
Author Organization [facility] Address [address] [place] [address]- Care Team Providers Care Dye Jig Operator Name Role Phone Randy Elise MD Primary Care Physician Encounter [facility] Date(s): 02/25/24 - 03/26/24 [facility] [address] [place] [address]- Attending Physician: Jocelyn Mclcendon Admitting Physician: AdmJocelyn rosen Referring Physician: AdmtrJocelyn [...] 09/06/22 Recorded zoster vaccine, inactivated 04/13/22 Recorded [id number] bivalent booster vax 06/30/22 Recorded SARS-CoV-2 (COVID-19) mRNA BNT-162b2 vac 09/18/21 Given SARS-CoV-2 (COVID-19) mRNA-1273 vaccine 03/14/21 R ecorded SARS-CoV-2 (COVID-19) mRNA-1273 vaccine 02/14/21 R ecorded pneumococcal 23-valent vaccine 01/31/19 Recorded tetanus/diphtheria/pertussis, acel(Tdap) 02/14/17 Given Tet/Diphth/Acel, Pertussis (oldterm) 4 12/07/08 Gi rob 1Result Comment: [09/26/2015] ADMINISTERED AT [facility] 2Admin Note: VIS GIVEN-DATED 04/28/12 Administered at [facility] 3Admin Note: VIS GIVEN 4Admin Note: [...] Refills, Maintenance, 02/18/23 16:01:00 EDT, CR Tablet, [facility]/pharmacy #[id number], Partial fill upon [...] Refills, Maintenance, 08/24/22 16:57:00 EDT, [facility], [facility], USE 2 SPRAYS IN EACH NOSTRIL DAILY, 167.6, cm, 07/23/22 13:04:00 EDT, Height Start Date: 08/24/22 Status: Ordered gabapentin 100 mg oral capsule 2, capsule, By Mouth, Daily at bedtime, # 60 capsule, Refills 11, Maintenance, 06/25/23 12:25:00 EDT, Route to Pharmacy Electronically, [facility], 167.6, cm, 05/27/23 15:30:00 EDT, Height Start [...] 5 Refills,Maintenance, 05/01/23 9:50:00 EDT, [facility], 167.6, cm, 02/18/23 15:20:00 EDT, Height Start Date: 05/01/23 Status: Ordered simvastatin 20 mg oral tablet 1, tablet, By Mouth, Daily at bedtime, # 90 tablet, Refills 1, Maintenance, 03/12/24 15:43:00 EDT, Route to Pharmacy Electronically, [facility] 71192, 167.6, cm, 08/29/23 11:50:00 EDT, Height, 77.2, [...] bleeding 6 Confirmed 2011 Active *BHN/CCA/ONECARE/CP- Franc[place]a [phone]/Health [facility], active care coordination Confirmed Active Premature [...] Team Personnel Name: Randy Elise MD Position: [facility] Physician - Primary Care Member Role: PCP Address: Address: [address] [place] [address] [place] [address]- Care Team Related Persons Name: SUDHIR SOSA Address: home [address] [address] [place] [address] Name: ZEYNEP SOSA Address: [place] [address] Name: ZEYNEP SOSA Address: home [address] [place] [address] Name: NONE, STATES
--- OUTSIDE RECORDS SUMMARY | 2024-08-19 00:46 | XMS_ITS | Continuity of Care Document ---
Author Organization [facility] Address [address] [place] [address]- Care Team Providers Care Die Lay Out Worker Name Role Phone Gosia OCONNELL, Randy Cook Primary Care Physician [phone] Encounter [facility] Date(s): 01/25/22 - 02/24/22 [facility] [address] [place] [address]- Attending Physician: Admtr, Jocelyn Allergies, Adverse Reactions, [...] Gi rob 1Result Comment: [09/26/2015] ADMINISTERED AT [facility] [employer] [employer] 2Admin Note: VIS GIVEN-DATED 04/28/12 Administered at [facility] 3Admin Note: VIS GIVEN 4Admin Note: [...] # 48 mL, 1 Refills, [facility], 90, USE 2 SPRAYS IN EACH NOSTRIL DAILY, 167.6, cm, 11/02/21 9:05:00 EST, Height Start Date: 12/11/21 Status: Ordered gabapentin 100 mg oral capsule 200 mg, 2, capsule, By Mouth, Daily at bedtime, # 60 capsule, Refills 3, Tot. Refills 3, Maintenance, 02/05/22 17:16:00 EDT, Route to Pharmacy Electronically, [facility]/pharmacy #[id number], Dose INCREASED 02/05/22. Please disregard last prescription, 167.6, cm, 0... Start Date: 02/05/22 Status: Ordered omeprazole 40 mg oral enteric coated capsule 1 capsule, By Mouth, 2 times a day, # 180 capsule, 1 Refills, [facility], 167.6, cm, 09/29/21 11:56:00 EST, Height Start [...] Refills, Maintenance, 03/28/21 9:37:00 EDT, REC Powder, [facility]/pharmacy #[id number], Partial fill upon patient request if [...] 09/18/21 13:57:00 EST, Route to Pharmacy Electronically, [facility]/pharmacy #[id number] Tablet,Partial fill upon patient request if [...] tablet, Refills 1, Route to Pharmacy Electronically, [facility] 81793, 167.6, cm, 11/02/21 9:05:00 EST, Height Start Date: 11/03/21 Status: Ordered Ventolin HFA 108 mcg/inh inhalation aerosol with adapter 1 puffs, Inhalation, 4 times a day, PRN for wheezing, # 8 Gm, 1 Refills, Maintenance, 05/04/20 15:51:00 EDT, Aerosol, [facility]/pharmacy #[id number], 165.1, cm, 04/07/20 10:09:00 EDT, Height, [...]
--- OUTSIDE RECORDS SUMMARY | 2024-08-19 00:46 | XMS_ITS | Continuity of Care Document ---
Author Organization [facility] ter Address [address] [place] [address]- Care Team Providers Care Physician Liaison Name Role Phone Randy Elise MD Primary Care Physician [phone] Encounter [facility] Date(s): 08/23/20 - 08/23/[address] [address]- [facility] Discharge Disposition: A-D/C Home Attending Physician: Rusty Garcia MD Admitting Physician: Rusty Garcia MD Referring Physician: Rusty Garcia MD Allergies, Adverse Reactions, Alerts No Known Medication Allergies Immunizations Given and Recorded Vaccine Date Status Refusal Reason tetanus/diphtheria/pertussis, acel(Tdap) 02/14/17 Given influenza virus vaccine, inactivated 1 06/27/15 Re corded influenza virus vaccine, inactivated 2 06/20/12 Gi rob influenza virus vaccine, inactivated 3 12/07/08 Gi rob Tet/Diphth/Acel, Pertussis (oldterm) 4 12/07/08 Gi rob 1Result Comment: [09/26/2015] ADMINISTERED AT [facility] 2Admin Note: VIS GIVEN-DATED 04/28/12 Administered at [facility] 3Admin Note: VIS GIVEN 4Admin Note: VIS GIVEN Medications benztropine 0.5 mg oral tablet 0.5 mg, 1, tablet, By Mouth, 2 times a day, # 60 tablet, Refills 1, Tot. Refills 1, Maintenance, 05/11/19 14:23:19 EDT, Route to Pharmacy Electronically, [id number], [facility]/pharmacy #[id number] Start Date: 05/11/19 [...] 09/14/19 13:00:46 EST, Route to Pharmacy Electronically, [id number], [facility]/pharmacy #[id number] Start Date: 09/14/19 Status: Ordered FLUoxetine 20 mg oral capsule 20 mg, 1, capsule, By Mouth, Daily, Take with Fluoxetine 10mg capsule (total dose = 30mg daily)., #30 capsule, Refills 5, Tot. Refills 5, Maintenance, 09/14/19 13:00:56 EST, Route to Pharmacy Electronically, [id number], [facility]... Start Date: 09/14/19 Status: Ordered LORazepam [...] mL, 0 Refills, Maintenance, 12/17/19 9:00:00 EST, [facility]/pharmacy #[id number], 1 glass every 15-30 minutes until finished, 165.1, cm, 12/14/19 15:03:00 EST, Height, 63.1, kg, 08/21/19 12:21:... Start Date: 12/17/19 Status: Ordered NuLYTELY with Flavor Packs oral powder for reconstitution See Instructions, 240 mL By Mouth Every 15 minutes, # 4,000 mL, 0 Refills, Maintenance, 12/10/19 16:20:00 EST, [facility]/pharmacy #[id number], 240 mL By Mouth Every 15 minutes, 167.6, cm, 12/10/19 12:18:00 EST, Height, 63.1, kg, 08/21/19 12:21:00 EDT, Dry Weight Start Date: 12/10/19 Status: Ordered omeprazole 40 mg oral enteric coated capsule 1 capsule = 40 mg, By Mouth, 2 times a day, # 180 capsule, 0 Refills, Maintenance, 07/12/20 15:18:00 EDT, EC Capsule, [facility]/pharmacy #[id number], 165.1, cm, 04/07/20 10:09:00 EDT, Height, 63.1, kg, 08/21/19 12:21:00 EDT, Dry Weight Start Date: 07/12/20 Stop Date: 10/10/20 Status: Ordered Preparation H 0.25% rectal suppository [...] Replace Required Details, Route to Pharmacy Electronically, [id number], [facility]/phar... Start Date: 09/14/19 Status: Ordered simvastatin 20 mg oral tablet 20 mg, 1, tablet, By Mouth, Daily at bedtime, for 30 days, # 30 tablet, Refills 11, Tot. Refills 11, Hard Stop 04/07/21 8:11:00 EDT, 04/12/20 8:11:00 EDT, [id number], 165.1, cm, 04/07/20 10:09:00 EDT, Height,... Start Date: 04/12/20 Stop Date: 04/07/21 Status: Ordered Ventolin HFA 108 mcg/inh inhalation aerosol with adapter 1 puffs, Inhalation, 4 times a day, PRN for wheezing, # 8 Gm, 1 Refills, Maintenance, 05/04/20 15:51:00 EDT, Aerosol, [id number], 165.1, cm, 04/07/20 10:09:00 EDT, Height, [...] Most recent to oldest [Reference Range]: 1 2 3 Height 167.6 cm (08/23/20 12:36 PM) Weight 68 kg (08/23/20 12:36 PM) Oxygen Saturation [94-100 %] 100 % (08/23/20 2:45 PM) 100 % (08/23/20 2:30 PM) 100 % (08/23/20 12:36 PM) Pulse Rate [55-90 bpm] 108 bpm *H* (08/23/20 12:36 PM) Body Mass Index [18.5-24.99] 24.21 (08/23/20 12:36 PM) Blood Pressure [90-138/55-84 mm Hg] 102/65mm Hg (08/23/20 2:45 PM) 108/72mm Hg (08/23/20 2:35 PM) 83/45mm Hg *L* (08/23/20 2:30 PM) Respiratory Rate [16-30 br/min] 18 br/min (08/23/20 2:45 PM) 16 br/min (08/23/20 2:30 PM) 16 br/min (08/23/20 12:36 PM) Temperature [96.8-100.4 DegF] 97.6 DegF (08/23/20 12:36 PM) Mode of Delivery (Oxygen) Room air (08/23/20 2:45 PM) Room air (08/23/20 2:30 PM) Room air (08/23/20 12:36 PM) Blood pressure sites Arm, left (08/23/20 2:45 PM) Arm, left (08/23/20 2:35 PM) Arm, left (08/23/20 2:30 PM) Temperature Route Temporal (08/23/20 12:36 PM) Weight Obtained Via Patient/family state d (08/23/20 12:36 PM) Social History Social History Type Response Smoking Status Never smoker entered on: 12/31/13 Sex Female
--- OUTSIDE RECORDS SUMMARY | 2024-08-19 00:46 | XMS_ITS | Continuity of Care Document ---
Author Organization [facility] y Address [address] [place] [address]- Care Team Providers Care Load Test Mechanic Name Role Phone Randy Elise MD Primary Care Physician [phone] Encounter [facility] Date(s): 09/01/19 - 12/30/19 [facility] [address] [place] [address]- Attending Physician: Jagjit Kevin MD Admitting Physician: Jagjit Kevin MD Allergies, Adverse Reactions, Alerts No Known Medication Allergies Immunizations Given and Recorded Vaccine Date Status Refusal Reason tetanus/diphtheria/pertussis, acel(Tdap) 02/14/17 Given influenza virus vaccine, inactivated 1 06/27/15 Re corded influenza virus vaccine, inactivated 2 06/20/12 Gi rob influenza virus vaccine, inactivated 3 12/07/08 Gi rob Tet/Diphth/Acel, Pertussis (oldterm) 4 12/07/08 Gi rob 1Result Comment: [09/26/2015] ADMINISTERED AT [facility] 2Admin Note: VIS GIVEN-DATED 04/28/12 Administered at [facility] 3Admin Note: VIS GIVEN 4Admin Note: VIS GIVEN Medications benztropine 0.5 mg oral tablet 0.5 mg, 1, tablet, By Mouth, 2 times a day, # 60 tablet, Refills 1, Tot. Refills 1, Maintenance, 05/11/19 14:23:19 EDT, Route to Pharmacy Electronically, [id number], [facility]/pharmacy #[id number] Start Date: 05/11/19 Stop Date: [...] 09/14/19 13:00:46 EST, Route to Pharmacy Electronically, [id number], [facility]/pharmacy #[id number] Start Date: 09/14/19 Status: Ordered FLUoxetine 20 mg oral capsule 20 mg, 1, capsule, By Mouth, Daily, Take with Fluoxetine 10mg capsule (total dose = 30mg daily)., #30 capsule, Refills 5, Tot. Refills 5, Maintenance, 09/14/19 13:00:56 EST, Route to Pharmacy Electronically, [id number], [facility]... Start Date: 09/14/19 Status: Ordered LORazepam [...] mL, 0 Refills, Maintenance, 12/10/19 16:20:00 EST, [facility]/pharmacy #[id number], 240 mL By Mouth Every [...] Replace Required Details, Route to Pharmacy Electronically, [id number], [facility]/phar... Start Date: 09/14/19 Status: Ordered Ventolin [...]
--- OUTSIDE RECORDS SUMMARY | 2024-08-19 00:46 | XMS_ITS | Continuity of Care Document ---
Author Organization [facility] Address [address] [place] [address]- Care Team Providers Care Television Production Clerk Name Role Phone Gosia OCONNELL, Randy Cook Primary Care Physician [phone] Encounter [facility] Date(s): 03/12/24 - 04/11/24 [facility] [address] [place], [place] [phone] Allergies, Adverse Reactions, Alerts No Known Allergies Immunizations Given and Recorded Vaccine Date Status Refusal Reason influenza virus vaccine, inactivated 07/24/23 Keith rded influenza virus vaccine, inactivated 06/30/22 Keith rded influenza virus vaccine, inactivated 07/04/21 Keith rded influenza virus vaccine, inactivated 07/03/19 Keith rded influenza virus vaccine, inactivated 06/23/18 Keith rded influenza virus vaccine, inactivated 06/08/17 Ketih rded influenza virus vaccine, inactivated 06/14/16 Keith rded influenza virus vaccine, inactivated 1 06/27/15 Re corded influenza virus vaccine, inactivated 2 06/20/12 Gi rob influenza virus vaccine, inactivated 3 12/07/08 Gi rob zoster vaccine, inactivated 09/06/22 Recorded zoster vaccine, inactivated 04/13/22 Recorded [id number] bivalent booster vax 06/30/22 Recorded SARS-CoV-2 (COVID-19) mRNA BNT-162b2 vac 09/18/21 Given SARS-CoV-2 (COVID-19) mRNA-1273 vaccine 03/14/21 R ecorded SARS-CoV-2 (COVID-19) mRNA-1273 vaccine 02/14/21 R ecorded pneumococcal 23-valent vaccine 01/31/19 Recorded tetanus/diphtheria/pertussis, acel(Tdap) 02/14/17 Given Tet/Diphth/Acel, Pertussis (oldterm) 4 12/07/08 Gi rob 1Result Comment: [09/26/2015] ADMINISTERED AT [employer] Note: VIS GIVEN-DATED 04/28/12 Administered at [facility] 3Admin Note: VIS GIVEN 4Admin Note: [...] Refills, Maintenance, 02/18/23 16:01:00 EDT, CR Tablet, [facility]/pharmacy #[id number], Partial fill upon patient request [...] Refills, Maintenance, 08/24/22 16:57:00 EDT, [facility], 90, USE 2 SPRAYS IN EACH NOSTRIL DAILY, 167.6, cm, 07/23/22 13:04:00 EDT, Height Start Date: 08/24/22 Status: Ordered gabapentin 100 mg oral capsule 2, capsule, By Mouth, Daily at bedtime, # 60 capsule, Refills 11, Maintenance, 06/25/23 12:25:00 EDT, Route to Pharmacy Electronically, [facility], 167.6, cm, 05/27/23 15:30:00 EDT, Height Start Date: 06/25/23 Status: Ordered Milk of Magnesia 8% oral suspension 30 mL = 2.4 Gm, By Mouth, Daily at bedtime, PRN for constipation, # 300 mL, 1 Refills, Maintenance,02/18/23 16:01:00 EDT, Suspension, [facility]/pharmacy #[id number], Partial fill upon patient request if the prescription is for a schedule II opioid drug., 167.6,... Start Date: 02/18/23 Status: Ordered omeprazole 40 mg oral enteric coated capsule 1 capsule, By Mouth, 2 times a day, # 180 capsule, 0 Refills, Maintenance, 12/05/23 8:29:00 EST, [facility]/pharmacy #[id number], 167.6, cm, 08/29/23 11:50:00 EDT, Height, [...] 5 Refills,Maintenance, 05/01/23 9:50:00 EDT, [facility], 167.6, cm, 02/18/23 15:20:00 EDT, Height Start Date: 05/01/23 Status: Ordered simvastatin 20 mg oral tablet 1, tablet, By Mouth, Daily at bedtime, # 90 tablet, Refills 1, Maintenance, 03/12/24 15:43:00 EDT, Route to Pharmacy Electronically, [facility], 167.6, cm, 08/29/23 11:50:00 EDT, Height, 77.2, [...] bleeding 6 Confirmed 2011 Active *BHN/CCA/ONECARE/CP- Franc[place]a [phone]/[facility], active care coordination Confirmed Active Premature ovarian [...] Team Personnel Name: Randy Elise MD Position: [facility] Physician - Primary Care Member Role: PCP Address: Address: [address] [place] [address] [place] [address]- [place] Care Team Related Persons Name: SUDHIR SOSA Address: home [address] [address] Name: ZEYNEP SOSA Address: home [place] [address] Name: ZEYNEP SOSA Address: home [address] [place] [address] Name: NONE, STATES
--- OUTSIDE RECORDS SUMMARY | 2024-08-19 00:46 | XMS_ITS | Continuity of Care Document ---
Author Organization [facility] Address [address] [place] [address] [address] [place] [address]- Care Team Providers Care Communications Billing Analyst Name Role Phone Randy Elise MD Primary Care Physician Encounter [facility] Date(s): 06/27/23 - 07/04/[address] [place] [address]- Encounter Diagnosis Anal fissure(Discharge Diagnosis) - 06/27/23 Attending Physician: Wai MONET, Palmira Coronel Referring Physician: Randy Elise MD Allergies, Adverse Reactions, Alerts No Known Medication Allergies Immunizations Given and Recorded Vaccine Date Status Refusal Reason [id number] bivalent booster vax 06/30/22 Recorded influenza virus [...] Gi rob 1Result Comment: [09/26/2015] ADMINISTERED AT [facility] 2Admin Note: VIS GIVEN-DATED 04/28/12 Administered at [facility] 3Admin Note: VIS GIVEN 4Admin [...] Refills, Maintenance, 02/18/23 16:01:00 EDT, CR Tablet, [facility]/pharmacy #[id number], Partial fill upon patient request [...] Refills, Maintenance, 08/24/22 16:57:00 EDT, [facility], 90, USE 2 SPRAYS IN EACH NOSTRIL DAILY, 167.6, cm, 07/23/22 13:04:00 EDT, Height Start Date: 08/24/22 Status: Ordered gabapentin 100 mg oral capsule 2, capsule, By Mouth, Daily at bedtime, # 60 capsule, Refills 11, Maintenance, 06/25/23 12:25:00 EDT, Route to Pharmacy Electronically, [facility] 94[facility], 167.6, cm, 05/27/23 15:30:00 EDT, Height Start Date: 06/25/23 Status: Ordered Milk of Magnesia 8% oral suspension 30 mL = 2.4 Gm, By Mouth, Daily at bedtime, PRN for constipation, # 300 mL, 1 Refills, Maintenance,02/18/23 16:01:00 EDT, Suspension, [facility]/pharmacy #0843, Partial fill upon patient request if the prescription is for a schedule II opioid drug., 167.6,... Start Date: 02/18/23 Status: Ordered omeprazole 40 mg oral enteric coated capsule 1 capsule, By Mouth, 2 times a day, # 180 capsule, 1 Refills, Maintenance, 05/20/23 14:10:00 EDT, [facility] 82202, 167.6, cm, 05/06/23 11:25:00 EDT, Height Start [...] 5 Refills,Maintenance, 05/01/23 9:50:00 EDT, [facility], 167.6, cm, 02/18/23 15:20:00 EDT, Height Start Date: 05/01/23 Status: Ordered simvastatin 20 mg oral tablet 1, tablet, By Mouth, Daily at bedtime, # 90 tablet, Refills 1, Maintenance, 03/28/23 11:22:00 EDT, Route to Pharmacy Electronically, [facility] 6[facility]13, 167.6, cm, 02/18/23 15:20:00 EDT, Height Start [...] Dates Health Status Cl inical Service Informant Anal fissure Discharge Diagnosis 06/27/23 Vital Signs Most recent to oldest [Reference Range]: 1 Height 167.6 cm (06/27/23 10:18 AM) Weight 76.1 kg (06/27/23 10:18 AM) Pulse Rate [55-90 bpm] 112 bpm *H* (06/27/23 10:18 AM) Body Mass Index [18.5-24.99 kg/m2] 27.09 kg/m2 *H* (06/27/23 10:18 AM) Blood Pressure [90-138/55-84 mm Hg] 111/ 74mm Hg (06/27/23 10:18 AM) Temperature [96.8-100.4 DegF] 98.4 DegF (06/27/23 10:18 AM) Temperature Route Temporal (06/27/23 10:18 AM) Social History Social History Type Response Smoking Status Never smoker entered on: 12/31/13 Sex Female Patient Care team information Care Team Personnel Name: Gosia OCONNELL, Randy Cook Position: S Physician - Primary Care Member Role: PCP Address: Address: [address] [place] [address] [place] [address]- [place] Care Team Related Persons Name: SUDHIR SOSA Address: home [address] [facility] [address] [place] [address] Name: ZEYNEP SOSA Address: [place] [address] Name: ZEYNEP SOSA Address: home [address] [place] [address] Name: NONE, PT STATES
--- OUTSIDE RECORDS SUMMARY | 2024-08-19 00:46 | XMS_ITS | Continuity of Care Document ---
Author Organization [facility] Address [address] [place] [address]- Care Team Providers Care Tig Welder Name Role Phone Randy Elise MD Primary Care Physician [phone] Encounter [facility] Date(s): 08/29/23 - 09/05/23 [facility] [address] [place] [address]- Encounter Diagnosis Right foot pain(Discharge Diagnosis) - 08/29/23 Attending Physician: Lydia Smiley MD Referring Physician: [...] 09/06/22 Recorded zoster vaccine, inactivated 04/13/22 Recorded [id number] bivalent booster vax 06/30/22 Recorded SARS-CoV-2 (COVID-19) mRNA BNT-162b2 vac 09/18/21 Given SARS-CoV-2 (COVID-19) mRNA-1273 vaccine 03/14/21 R ecorded SARS-CoV-2 (COVID-19) mRNA-1273 vaccine 4/20/21 R ecorded pneumococcal 23-valent vaccine 01/31/19 Recorded tetanus/diphtheria/pertussis, acel(Tdap) 02/14/17 Given Tet/Diphth/Acel, Pertussis (oldterm) 4 12/07/08 Gi rob 1Result Comment: [09/26/2015] ADMINISTERED AT [facility] 2Admin Note: VIS GIVEN-DATED 04/28/12 Administered at [facility] 3Admin Note: VIS GIVEN 4Admin Note: [...] Refills, Maintenance, 02/18/23 16:01:00 EDT, CR Tablet, [facility]/pharmacy #[id number], Partial fill upon patient request [...] Refills, Maintenance, 08/24/22 16:57:00 EDT, [id number], 90, USE 2 SPRAYS IN EACH NOSTRIL DAILY, 167.6, cm, 07/23/22 13:04:00 EDT, Height Start Date: 08/24/22 Status: Ordered gabapentin 100 mg oral capsule 2, capsule, By Mouth, Daily at bedtime, # 60 capsule, Refills 11, Maintenance, 06/25/23 12:25:00 EDT, Route to Pharmacy Electronically, [id number], 167.6, cm, 05/27/23 15:30:00 EDT, Height Start Date: 06/25/23 Status: Ordered Milk of Magnesia 8% oral suspension 30 mL = 2.4 Gm, By Mouth, Daily at bedtime, PRN for constipation, # 300 mL, 1 Refills, Maintenance,02/18/23 16:01:00 EDT, Suspension, [facility]/pharmacy #[id number], Partial fill upon patient request if the prescription is for a schedule II opioid drug., 167.6,... Start Date: 02/18/23 Status: Ordered omeprazole 40 mg oral enteric coated capsule 1 capsule, By Mouth, 2 times a day, # 180 capsule, 1 Refills, Maintenance, 05/20/23 14:10:00 EDT, [facility], 167.6, cm, 05/06/23 11:25:00 EDT, Height Start [...] 5 Refills,Maintenance, 05/01/23 9:50:00 EDT, [facility], 167.6, cm, 02/18/23 15:20:00 EDT, Height Start Date: 05/01/23 Status: Ordered simvastatin 20 mg oral tablet 1, tablet, By Mouth, Daily at bedtime, # 90 tablet, Refills 1, Maintenance, 03/28/23 11:22:00 EDT, Route to Pharmacy Electronically, [facility], 167.6, cm, 02/18/23 15:20:00 EDT, Height Start [...] Dates Health Status Cl inical Service Informant Right foot pain Discharge Diagnosis 08/29/23 Vital Signs Most recent to oldest [Reference Range]: 1 Height 167.6 cm (08/29/23 11:50 AM) Oxygen Saturation [94-100 %] 97 % (08/29/23 11:50 AM) Pulse Rate [55-90 bpm] 101 bpm *H* (08/29/23 11:50 AM) Blood Pressure [90-138/55-84 mm Hg] 129/ 71mm Hg (08/29/23 11:50 AM) Respiratory Rate [16-30 br/min] 18 br/mi n (08/29/23 11:50 AM) Temperature [96.8-100.4 DegF] 98.0 DegF (08/29/23 11:50 AM) Mode of Delivery (Oxygen) Room air (08/29/23 11:50 AM) Blood pressure sites Arm, right (08/29/23 11:50 AM) Temperature Route Temporal (08/29/23 11:50 AM) Social History Social History Type Response Smoking Status Never smoker entered on: 12/31/13 Sex Female Note * Redd MONET, Phuong: PERFORM, SIGN, VERIFY Event Display: Patient Education/Instruction Authored Date: [id number] [facility] *[facility] Clinical Summary Name SRINATH SOSA Age 53 Years 1970 PCP Gosia OCONNELL, Randy Cook PCP Visit Date 08/29/2023 10:38:00 Patient Instructions Tylenol 500 mg. ??Take 2 tablets, every 8 hours, as needed for pain. Firm soled shoe.?? If symptoms do not improve over the next 1 to 2 weeks, then follow-up with your primary provider or an military source operations specialist. Additional Instructions: Scheduled Appointments?? Future Appointments ?No Future Appointments Scheduled Follow-Up Instructions ?? Diagnosis Pain in right foot Medications: Please continue your medications until treatment [...] NKA Medications Given This Visit Future Orders ?No future orders Vital Signs Height 167.6 cm Weight BMI Blood Pressure 129 mm Hg/71 mm Hg Temperature 98.0 DegF Pulse Rate 101 bpm Respiratory Rate 18 br/min 02 Sat Mode of Delivery 97 %/Room air You can now view a summary of your hospital visit from the comfort of your home through a free online portal called Casengo. Casengo is a website that allows you to securely view your medical information including discharge summary, medications and follow-up visits. ??You can alsosend a secure electronic message to your doctor???s office to request appointments, renew medications or just ask a question. You can enroll at [email or web address] or register during your next office visit. [...] primary care provider, you may find a [facility] provider by calling [facility] at [phone]. [facility], in keeping with [facility] guidance, no longer requires face masks [...] format to support your individualized medical care. Foot Sprain A sprain is a stretching or tearing of the ligaments that hold a joint together. There are no broken bones. Sprains??generally??take from 3???6 weeks to heal. A sprain may be treated with a splint, walking cast, or special boot. Mild sprains may not need any additional support. Home care The following guidelines will help you care for your injury at home: ??? Keep your leg elevated when sitting or lying down. This is very important during the first 48 hours to reduce swelling. Stay off the injured foot as much as possible until you can walk on it without pain. If needed, you may use crutches during the first week for this purpose. Crutches can be rented at many pharmacies or surgical/orthopedic supply stores. ??? You may be given a cast shoe to wear to prevent movement in your foot. If not, you can use a sandal or any shoe that does not put pressure on the injured area until the swelling and pain go away.If using a sandal, be careful not to hit your foot against anything, since another injury could make the sprain worse. ??? Apply an ice pack over the injured area for 15 to 20 minutes every??3 to 6??hours. You should do this for??the first??24 to 48 hours.??You can make an ice pack by filling a plastic bag that sealsat the top with ice cubes and then wrapping it with a thin towel. Continue to use ice packs for relief of pain and swelling as needed. As the ice melts, avoid getting any wrap, splint, or cast wet. After 48 hours, apply heat??from a warm shower or bath for 20 minutes several times daily.??Alternating ice and heat may also be helpful. ??? You may use??bmjf-uvc-unkimum pain medicine??to control pain, unless another medicine was prescribed. If you have chronic liver or kidney disease or ever had a stomach ulcer or GI bleeding, talk with your healthcare provider before??using these medicines. ??? If you were given a splint or cast, keep it dry. Bathe with your splint or cast well out of thewater, protected with 2??large plastic bags, rubber-banded at the top end. If a fiberglass splint or cast gets wet, you can dry it with a chairman president and chief executive officer. ??? You may return to sports after healing, when you can run without pain. Follow-up care Follow up with your healthcare provider as directed. Sometimes fractures don???t show up on the first X-ray. Bruises and sprains can sometimes hurt as much as a fracture. These injuries can take timeto heal completely. If your symptoms don???t improve or they get worse, talk with your healthcare provider. You may need a repeat X-ray. When to seek medical advice Call your healthcare provider right away??if any of these occur: ??? The plaster cast or splint gets wet or soft ??? The fiberglass cast or splint gets wet and does not dry for 24 hours ??? Pain or swelling increases, or redness appears ??? A bad??odor comes from within the cast ??? Fever of 100.4??F (38??C) or above lasting for 24 to 48 hours ??? Toes??on the injured foot??become cold, blue, numb, or tingly ?? [id number] [employer]. [address] [place] [address]. All rights reserved. This information is not intended as a substitute for professional medical care. Always follow your healthcare professional's instructions. * Phuong Rainey NP: PERFORM, SIGN, VERIFY Event Display: Patient Education/Instruction Authored Date: [id number] [facility] *[facility] Clinical Summary Name SRINATH SOSA Age 53 Years 1970 PCP [facility]CONNELL[id number] Date 08/29/2023 10:38:00 Patient Instructions Tylenol 500 mg. ??Take 2 tablets, every 8 hours, as needed for pain. Firm soled shoe.?? If symptoms do not improve over the next 1 to 2 weeks, then follow-up with your primary provider or an military source operations specialist. Additional Instructions: Scheduled Appointments?? Future Appointments ?No Future Appointments Scheduled Follow-Up Instructions ?? Diagnosis Pain in right foot Medications: Please continue your medications until treatment [...] NKA Medications Given This Visit Future Orders ?No future orders Vital Signs Height 167.6 cm Weight BMI Blood Pressure 129 mm Hg/71 mm Hg Temperature 98.0 DegF Pulse Rate 101 bpm Respiratory Rate 18 br/min 02 Sat Mode of Delivery 97 %/Room air You can now view a summary of your hospital visit from the comfort of your home through a free online portal called Casengo. Casengo is a website that allows you to securely view your medical information including discharge summary, medications and follow-up visits. ??You can alsosend a secure electronic message to your doctor???s office to request appointments, renew medications or just ask a question. You can enroll at [email or web address] or register during your next office visit. [...] primary care provider, you may find a [facility] provider by calling [facility] at [phone]. [facility], in keeping with [facility] guidance, no longer requires face masks [...] format to support your individualized medical care. Foot Sprain A sprain is a stretching or tearing of the ligaments that hold a joint together. There are no broken bones. Sprains??generally??take from 3???6 weeks to heal. A sprain may be treated with a splint, walking cast, or special boot. Mild sprains may not need any additional support. Home care The following guidelines will help you care for your injury at home: ??? Keep your leg elevated when sitting or lying down. This is very important during the first 48 hours to reduce swelling. Stay off the injured foot as much as possible until you can walk on it without pain. If needed, you may use crutches during the first week for this purpose. Crutches can be rented at many pharmacies or surgical/orthopedic supply stores. ??? You may be given a cast shoe to wear to prevent movement in your foot. If not, you can use a sandal or any shoe that does not put pressure on the injured area until the swelling and pain go away.If using a sandal, be careful not to hit your foot against anything, since another injury could make the sprain worse. ??? Apply an ice pack over the injured area for 15 to 20 minutes every??3 to 6??hours. You should do this for??the first??24 to 48 hours.??You can make an ice pack by filling a plastic bag that sealsat the top with ice cubes and then wrapping it with a thin towel. Continue to use ice packs for relief of pain and swelling as needed. As the ice melts, avoid getting any wrap, splint, or cast wet. After 48 hours, apply heat??from a warm shower or bath for 20 minutes several times daily.??Alternating ice and heat may also be helpful. ??? You may use??bjiu-diq-fybiegx pain medicine??to control pain, unless another medicine was prescribed. If you have chronic liver or kidney disease or ever had a stomach ulcer or GI bleeding, talk with your healthcare provider before??using these medicines. ??? If you were given a splint or cast, keep it dry. Bathe with your splint or cast well out of thewater, protected with 2??large plastic bags, rubber-banded at the top end. If a fiberglass splint or cast gets wet, you can dry it with a chairman president and chief executive officer. ??? You may return to sports after healing, when you can run without pain. Follow-up care Follow up with your healthcare provider as directed. Sometimes fractures don???t show up on the first X-ray. Bruises and sprains can sometimes hurt as much as a fracture. These injuries can take timeto heal completely. If your symptoms don???t improve or they get worse, talk with your healthcare provider. You may need a repeat X-ray. When to seek medical advice Call your healthcare provider right away??if any of these occur: ??? The plaster cast or splint gets wet or soft ??? The fiberglass cast or splint gets wet and does not dry for 24 hours ??? Pain or swelling increases, or redness appears ??? A bad??odor comes from within the cast ??? Fever of 100.4??F (38??C) or above lasting for 24 to 48 hours ??? Toes??on the injured foot??become cold, blue, numb, or tingly ?? [id number] [employer]. [address] [place] [address], [place] [address]. All rights reserved. This information is not intended as a substitute for professional medical care. Always follow your healthcare professional's instructions. * Quoc Hassan: PERFORM, SIGN, VERIFY Event Display: Patient Education/Instruction Authored Date: [facility] *[facility] Clinical Summary Name SRINATH SOSA Age 53 Years 1970 PCP Gosia OCONNELL, Randy Cook PCP Visit Date 08/29/2023 10:38:00 Additional Instructions: Scheduled Appointments?? Future Appointments ?No Future Appointments Scheduled Follow-Up Instructions ?? Diagnosis Medications: Please continue your medications until treatment [...] NKA Medications Given This Visit Future Orders ?No future orders Vital Signs Height Weight BMI Blood Pressure / Temperature Pulse Rate Respiratory Rate 02 Sat Mode of Delivery / You can now view a summary of your hospital visit from the comfort of your home through a free online portal called Casengo. Casengo is a website that allows you to securely view your medical information including discharge summary, medications and follow-up visits. ??You can alsosend a secure electronic message to your doctor???s office to request appointments, renew medications or just ask a question. You can enroll at [email or web address] or register during your next office visit. [...] primary care provider, you may find a [facility] provider by calling [facility] at [phone]. [facility], in keeping with [facility] guidance, no longer requires face masks [...] Primary Care Member Role: PCP Address: Address: [address] [place] [address] [place] [address]- [place] Care Team Related Persons Name: SUDHIR SOSA Address: home [address] [place] [address] [address] [place] [address] Name: ZEYNEP SOSA Address: home [address], [place] Name: ZEYNEP SOSA Address: home [place], [place] Name: NONE, PT STATES
--- OUTSIDE RECORDS SUMMARY | 2024-08-19 00:46 | XMS_ITS | Continuity of Care Document ---
Author Organization [facility] Address [address] [place] [address]- Care Team Providers Care Digital Media Director Name Role Phone Randy Elise MD Primary Care Physician [phone] Encounter [facility] Date(s): 08/11/19 - 12/09/19 [facility] [address] [place] [address]- [place] Attending Physician: Not on Staff, Attending MD Referring Physician: Randy Elise MD Allergies, [...] 1Result Comment: [09/26/2015] [facility] Note: VIS GIVEN-DATED 04/28/[address] [facility] 3Admin Note: VIS GIVEN 4Admin Note: VIS GIVEN Medications benztropine 0.5 mg oral tablet 0.5 mg, 1, tablet, By Mouth, 2 times a day, # 60 tablet, Refills 1, Tot. Refills 1, Maintenance, 05/11/19 14:23:19 EDT, Route to Pharmacy Electronically, [id number], [facility]/pharmacy #[id number] Start Date: 05/11/19 Stop Date: 07/10/19 Status: Ordered benztropine 0.5 mg oral tablet 0.5 mg, 1, tablet, By Mouth, 2 times a day, Refills 0, Maintenance, 02/16/19 12:54:22 EDT Start Date: 02/16/19 Status: Ordered diclofenac 1% topical gel 1 application, Topically, 4 times a day, # 100 Gm, 0 Refills, Maintenance, 05/11/19 14:14:25 EDT, Gel, 1 application Topically 4 times a day Start Date: 05/11/19 Status: Ordered Flonase 50 mcg/inh nasal spray 2 sprays, Nares, Both, 2 times a day, # 16 Gm, 0 Refills, Maintenance, 12/19/17 12:40:34, [facility] Start Date: 12/19/17 Status: Ordered Fluoxetine = 30 mg, By Mouth, Daily, 0 Refills, Maintenance, 02/16/19 12:54:33 EDT Start Date: 02/16/19 Status: Ordered FLUoxetine 10 mg oral capsule 10 mg, 1, capsule, By Mouth, Daily, Take in addition to Fluoxetine 20mg daily (total =30mg daily).,# 30 capsule, Refills 5, Tot. Refills 5, 09/14/19 13:00:46 EST, Route to Pharmacy Electronically, [id number], [facility]/pharmacy #[id number] Start Date: 09/14/19 Status: Ordered FLUoxetine 20 mg oral capsule 20 mg, 1, capsule, By Mouth, Daily, Take with Fluoxetine 10mg capsule (total dose = 30mg daily)., #30 capsule, Refills 5, Tot. Refills 5, Maintenance, 09/14/19 13:00:56 EST, Route to Pharmacy Electronically, [id number], [facility]/... Start Date: 09/14/19 Status: Ordered LORazepam 0.5 mg oral tablet 1 tablet = 0.5 mg, By Mouth, 3 times a day, PRN for anxiety, 0 Refills, Maintenance, 02/16/19 12:54:45 EDT, Tablet Start Date: 02/16/19 Status: Ordered metroNIDAZOLE 500 mg oral tablet 1 tablet = 500 mg, By Mouth, Every 12 hours, do not drink alcohol not to exceed 4 g/day may take with food to minimize abdominal discomfort, # 14 tablet, 0 Refills, Maintenance, 02/22/19 16:30:37 EDT, Tablet Start Date: 02/22/19 Stop Date: 03/01/19 Status: Ordered MiraLax oral powder for reconstitution = 17 Gm, By Mouth, Daily, dissolve in water before taking, # 527 Gm, 1 Refills, Maintenance, 05/11/19 14:11:05 EDT, REC Powder, 17 Gm By Mouth Daily,Instr:dissolve in water before taking Start Date: 05/11/19 Status: Ordered omeprazole 40 mg oral enteric [...] Date: 03/04/18 Stop Date: 03/18/18 Status: Ordered Readi-Cat 2 oral suspension See Instructions, Drink 1 bottle [address] and 1 bottle [address], # 2 each,0 Refills, Maintenance, 11/02/19 16:50:00 EST, [facility]/pharmacy #[id number], Drink 1 bottle [address] and 1 bottle [address], 167.6, cm, 1... Start Date: 11/02/19 Status: Ordered Risperidone = 1.5 mg, By Mouth, 2 times a day, 0 Refills, Maintenance, 02/16/19 12:55:06 EDT Start Date: 02/16/19 Status: Ordered risperiDONE 3 mg oral tablet See Instructions, TAKE 1/2 TABLET BY MOUTH TWICE A DAY, # 30 tablet, Refills 2, Tot. Refills 2, Maintenance, 09/14/19 13:00:55 EST, Instructions Replace Required Details, Route to Pharmacy Electronically, [id number], [facility]/phar... Start Date: 09/14/19 Status: Ordered risperiDONE 3 mg oral tablet 1.5 mg, 0.5, tablet, By Mouth, 2 times a day, # 60 tablet, Refills 0, Maintenance, 02/19/19 18:56:16 EDT Start Date: 02/19/19 Status: Ordered simvastatin 20 mg oral tablet 20 mg, 1, tablet, By Mouth, Daily at bedtime, for 30 days, # 30 tablet, Refills 2, Tot. Refills 2, Hard Stop 12/27/19 17:11:26 EST, 09/28/19 17:11:26 EST, Route to Pharmacy Electronically, [id number], [id number] Start Date: 09/28/19 Stop Date: 12/27/19 [...]
--- OUTSIDE RECORDS SUMMARY | 2024-08-19 00:46 | XMS_ITS | Continuity of Care Document ---
Author Organization [facility] Address [address] [place] [address]- Care Team Providers Care Sales Account Associate Name Role Phone Gosia OCONNELL, Randy Cook Primary Care Physician [phone] Encounter [facility] Date(s): 12/14/19 - 12/14/[address] [address]- [facility] Discharge Disposition: A-D/C Home Attending Physician: Jonny Mendez MD Admitting Physician: Jonny Mendez MD Referring Physician: Jonny Mendez MD Allergies, Adverse Reactions, Alerts No Known Medication Allergies Immunizations Given and Recorded Vaccine Date Status Refusal Reason tetanus/diphtheria/pertussis, acel(Tdap) 02/14/17 Given influenza virus vaccine, inactivated 1 06/27/15 Re corded influenza virus vaccine, inactivated 2 06/20/12 Gi rob influenza virus vaccine, inactivated 3 12/07/08 Gi rob Tet/Diphth/Acel, Pertussis (oldterm) 4 12/07/08 Gi rob 1Result Comment: [09/26/2015] ADMINISTERED AT [facility] 2Admin Note: VIS GIVEN-DATED 04/28/12 Administered at [facility] 3Admin Note: VIS GIVEN 4Admin Note: VIS GIVEN Medications benztropine 0.5 mg oral tablet 0.5 mg, 1, tablet, By Mouth, 2 times a day, # 60 tablet, Refills 1, Tot. Refills 1, Maintenance, 05/11/19 14:23:19 EDT, Route to Pharmacy Electronically, [id number], [facility]/pharmacy #[id number] Start Date: 05/11/19 Stop Date: [...] 09/14/19 13:00:46 EST, Route to Pharmacy Electronically, [id number], [facility]/pharmacy #[id number] Start Date: 09/14/19 Status: Ordered FLUoxetine 20 mg oral capsule 20 mg, 1, capsule, By Mouth, Daily, Take with Fluoxetine 10mg capsule (total dose = 30mg daily)., #30 capsule, Refills 5, Tot. Refills 5, Maintenance, 09/14/19 13:00:56 EST, Route to Pharmacy Electronically, [id number], [facility]... Start Date: 09/14/19 Status: Ordered LORazepam [...] Replace Required Details, Route to Pharmacy Electronically, [id number], [facility]/phar... Start Date: 09/14/19 Status: Ordered simvastatin 20 mg oral tablet 20 mg, 1, tablet, By Mouth, Daily at bedtime, for 30 days, # 30 tablet, Refills 2, Tot. Refills 2, Hard Stop 12/27/19 17:11:26 EST, 09/28/19 17:11:26 EST, Route to Pharmacy Electronically, [id number], [facility]/pharmacy #[id number] Start Date: 09/28/19 Stop Date: 12/27/19 [...] again age 49 per report in [facility] Procedures Procedure Date Related Diagnosis Body Site Status Colonoscopy 12/14/19 Completed Vital Signs Most recent to oldest [Reference Range]: 1 2 3 Height 165.1 cm (12/14/19 3:03 PM) Weight 63.5 kg (12/14/19 3:03 PM) Oxygen Saturation [94-100 %] 100 % (12/14/19 4:15 PM) 99 % (12/14/19 3:44 PM) 99 % (12/14/19 3:03 PM) Pulse Rate [55-90 bpm] 79 bpm (12/14/19 3:44 PM) 108 bpm *H* (12/14/19 3:03 PM) Body Mass Index [18.5-24.99] 23.3 (12/14/19 3:03 PM) Blood Pressure [90-138/55-84 mm Hg] 104/65mm Hg (12/14/19 4:15 PM) 106/68mm Hg (12/14/19 3:44 PM) 118/77mm Hg (12/14/19 3:03 PM) Respiratory Rate [16-30 br/min] 18 br/min (12/14/19 4:15 PM) 16 br/min (12/14/19 3:44 PM) 18 br/min (12/14/19 3:03 PM) Temperature [96.8-100.4 DegF] 98.0 DegF (12/14/19 3:03 PM) Mode of Delivery (Oxygen) Room air (12/14/19 3:44 PM) Room air (12/14/19 3:03 PM) Blood pressure sites Arm, left (12/14/19 4:15 PM) Arm, left (12/14/19 3:44 PM) Arm, left (12/14/19 3:03 PM) Temperature Route Temporal (12/14/19 3:03 PM) Social History Social History Type Response Smoking Status Never smoker entered on: 12/31/13 Sex
--- OUTSIDE RECORDS SUMMARY | 2024-08-19 00:46 | XMS_ITS | Continuity of Care Document ---
Author Organization [facility] Address [address] [place] [address]- Care Team Providers Care Vice President Of Communications Name Role Phone Gosia OCONNELL, Randy Cook Primary Care Physician Encounter [facility] [place] ACCT R [id number] Date(s): 09/29/21 - 10/29/21 [facility] [address] [place] [address]- Attending Physician: Jocelyn Mcclendon Admitting Physician: AdmJocelyn rosen Referring Physician: Admtr, Ar8 Allergies, Adverse Reactions, [...] Gi rob 1Result Comment: [09/26/2015] ADMINISTERED AT [facility] 2Admin Note: VIS GIVEN-DATED 04/28/12 Administered at [facility] 3Admin Note: VIS GIVEN 4Admin Note: VIS GIVEN Medications benztropine 0.5 mg oral tablet TAKE 1 TABLET BY MOUTH TWICE A DAY Start Date: 05/08/21 Status: Ordered Flonase 50 mcg/inh nasal spray 2 sprays, Nares, Both, Daily, # 16 Gm, 2 Refills, Maintenance, 09/18/21 14:11:00 EST, [place], [facility]/pharmacy #[id number], Partial fill upon [...] a day, # 180 capsule, 1 Refills, [facility] STORE 11654, 167.6, cm, 09/29/21 11:56:00 EST, Height Start [...] Refills, Maintenance, 03/28/21 9:37:00 EDT, REC Powder, [facility]/pharmacy #[id number], Partial fill upon [...] 09/18/21 13:57:00 EST, Route to Pharmacy Electronically, [facility]/pharmacy #[id number] Tablet,Partial fill upon patient request if the prescripti... Start Date: 09/18/21 Status: Ordered simvastatin 20 mg oral tablet 1, tablet, By Mouth, Daily at bedtime, # 90 tablet, Refills 1, Tot. Refills 0, Maintenance, 03/28/21 9:34:00 EDT, Route to Pharmacy Electronically, [facility] STORE 36186, 167.6, cm, 03/28/21 8:40:00 EDT, Height, 63.1, [...] or Mass in Breast(Confirmed) 5 02/06/11 Active Obese class I(Confirmed) Active Obesity due to excess calories(Confirmed) Active [...]
--- OUTSIDE RECORDS SUMMARY | 2024-08-19 00:46 | XMS_ITS | Continuity of Care Document ---
Author Organization [facility] Address [address] [place] [address]- Care Team Providers Care Tax Compliance Representative Name Role Phone Gosia OCONNELL, Randy Cook Primary Care Physician [place] [facility] [place]19 [place] 11/19/19 [facility] [address] [place] [address]- [place] Attending Physician: Admtr, Doe8 Admitting Physician: Admtr, Doe8 Referring Physician: Admtr, Ar8 Allergies, Adverse Reactions, Alerts No Known Medication Allergies Immunizations Given and Recorded Vaccine Date Status Refusal Reason tetanus/diphtheria/pertussis, acel(Tdap) 02/14/17 Given influenza virus vaccine, inactivated 1 06/27/15 Re corded influenza virus vaccine, inactivated 2 06/20/12 Gi rob influenza virus vaccine, inactivated 3 12/07/08 Gi rob Tet/Diphth/Acel, Pertussis (oldterm) 4 12/07/08 Gi rob 1Result Comment: [09/26/2015] [facility] 2Admin Note: VIS GIVEN-DATED 04/28/12 Administered at [facility] 3Admin Note: VIS GIVEN 4Admin Note: VIS GIVEN Medications benztropine 0.5 mg oral tablet 0.5 mg, 1, tablet, By Mouth, 2 times a day, # 60 tablet, Refills 1, Tot. Refills 1, Maintenance, 05/11/19 14:23:19 EDT, Route to Pharmacy Electronically, [id number], [facility]/pharmacy #[id number] Start Date: 05/11/19 [...] 16 Gm, 0 Refills, Maintenance, 12/19/17 12:40:34, [place] Start Date: 12/19/17 Status: Ordered Fluoxetine = 30 mg, By Mouth, Daily, 0 Refills, Maintenance, 02/16/19 12:54:33 EDT Start Date: 02/16/19 Status: Ordered FLUoxetine 10 mg oral capsule 10 mg, 1, capsule, By Mouth, Daily, Take in addition to Fluoxetine 20mg daily (total =30mg daily).,# 30 capsule, Refills 5, Tot. Refills 5, 09/14/19 13:00:46 EST, Route to Pharmacy Electronically, [id number], [facility]/pharmacy #[id number] Start Date: 09/14/19 Status: Ordered FLUoxetine 20 mg oral capsule 20 mg, 1, capsule, By Mouth, Daily, Take with Fluoxetine 10mg capsule (total dose = 30mg daily)., #30 capsule, Refills 5, Tot. Refills 5, Maintenance, 09/14/19 13:00:56 EST, Route to Pharmacy Electronically, [id number], [facility]/... Start Date: 09/14/19 Status: Ordered LORazepam [...] 2 each,0 Refills, Maintenance, 11/02/19 16:50:00 EST, [facility]/pharmacy #[id number], Drink 1 bottle 6 hours [...] Replace Required Details, Route to Pharmacy Electronically, [id number], [facility]/phar... Start Date: 09/14/19 Status: Ordered risperiDONE [...] 09/28/19 17:11:26 EST, Route to Pharmacy Electronically, [id number], [id number] Start Date: 09/28/19 Stop Date: [...]
--- OUTSIDE RECORDS SUMMARY | 2024-08-19 00:46 | XMS_ITS | Continuity of Care Document ---
Author Organization [facility] Address [address] [place] [address]- Care Team Providers Care Laboratory Technologist Name Role Phone Randy Elise MD Primary Care Physician [place] [facility] [place]07[place]20 - 04/14/20 [facility] [address] [place] [address]- [place] Encounter Diagnosis Right radial head fracture(Discharge Diagnosis) - 04/07/20 Abrasion of left knee(Discharge Diagnosis) - 04/07/20 Attending Physician: Destiny OCONNELL, Fabio Sood Referring Physician: Randy Elise MD Allergies, Adverse Reactions, Alerts No Known Medication Allergies Immunizations Given and Recorded Vaccine Date Status Refusal Reason tetanus/diphtheria/pertussis, acel(Tdap) 02/14/17 Given influenza virus vaccine, inactivated 1 06/27/15 Re corded influenza virus vaccine, inactivated 2 06/20/12 Gi rob influenza virus vaccine, inactivated 3 12/07/08 Gi rob Tet/Diphth/Acel, Pertussis (oldterm) 4 12/07/08 Gi rob 1Result Comment: [09/26/2015] ADMINISTERED AT [facility] 2Admin Note: VIS GIVEN-DATED 04/28/12 Administered at [facility] 3Admin Note: VIS GIVEN 4Admin Note: VIS GIVEN Medications benztropine 0.5 mg oral tablet 0.5 mg, 1, tablet, By Mouth, 2 times a day, # 60 tablet, Refills 1, Tot. Refills 1, Maintenance, 05/11/19 14:23:19 EDT, Route to Pharmacy Electronically, [id number], [facility]/pharmacy #[id number] Start Date: 05/11/19 [...] 09/14/19 13:00:46 EST, Route to Pharmacy Electronically, [id number], [facility]/pharmacy #[id number] Start Date: 09/14/19 Status: Ordered FLUoxetine 20 mg oral capsule 20 mg, 1, capsule, By Mouth, Daily, Take with Fluoxetine 10mg capsule (total dose = 30mg daily)., #30 capsule, Refills 5, Tot. Refills 5, Maintenance, 09/14/19 13:00:56 EST, Route to Pharmacy Electronically, [id number], [facility]... Start Date: 09/14/19 Status: Ordered LORazepam [...] mL, 0 Refills, Maintenance, 12/10/19 16:20:00 EST, [facility]/pharmacy #[id number], 240 mL By [...] Replace Required Details, Route to Pharmacy Electronically, [id number], [facility]/phar... Start Date: 09/14/19 Status: Ordered simvastatin 20 mg oral tablet 20 mg, 1, tablet, By Mouth, Daily at bedtime, for 30 days, # 30 tablet, Refills 11, Tot. Refills 11, Hard Stop 04/07/21 8:11:00 EDT, 04/12/20 8:11:00 EDT, Route to Pharmacy Electronically, [facility]/pharmacy #[id number], 165.1, cm, 04/07/20 [...] Health Status Cl inical Service Informant Right radial head fracture Discharge Diagnosis 04/07/20 Abrasion of left knee Discharge Diagnosis 04/07/20 Vital Signs Most recent to oldest [Reference Range]: 1 Height 165.1 cm (04/07/20 10:09 AM) Oxygen Saturation [94-100 %] 98 % (04/07/20 10:09 AM) Pulse Rate [55-90 bpm] 113 bpm *H* (04/07/20 10:09 AM) Blood Pressure [90-138/55-84 mm Hg] 100/ 66mm Hg (04/07/20 10:09 AM) Respiratory Rate [16-30 br/min] 20 br/mi n (04/07/20 10:09 AM) Temperature [96.8-100.4 DegF] 98.5 DegF (04/07/20 10:09 AM) Mode of Delivery (Oxygen) Room air (04/07/20 10:09 AM) Blood pressure sites Arm, left (04/07/20 10:09 AM) Temperature Route Temporal (04/07/20 10:09 AM) Social History Social History Type Response Smoking Status Never smoker entered on: 12/31/13 Sex Female
--- OUTSIDE RECORDS SUMMARY | 2024-08-19 00:47 | XMS_ITS | Continuity of Care Document ---
Author Organization [facility] Address [address] [place] [address]- Care Team Providers Care Ground Instructor Advanced Name Role Phone Randy Elise MD Primary Care Physician Encounter [facility] [place] Date(s): 12/18/23 - 04/16/24 [facility] [address] [place], [place] [phone] Attending Physician: Randy Elise MD Admitting Physician: [...] 09/06/22 Recorded zoster vaccine, inactivated 04/13/22 Recorded [id number] bivalent booster vax 06/30/22 Recorded SARS-CoV-2 (COVID-19) mRNA BNT-162b2 vac 09/18/21 Given SARS-CoV-2 (COVID-19) mRNA-1273 vaccine 03/14/21 R ecorded SARS-CoV-2 (COVID-19) mRNA-1273 vaccine 02/14/21 R ecorded pneumococcal 23-valent vaccine 01/31/19 Recorded tetanus/diphtheria/pertussis, acel(Tdap) 02/14/17 Given Tet/Diphth/Acel, Pertussis (oldterm) 4 12/07/08 Gi rob 1Result Comment: [09/26/2015] ADMINISTERED AT [facility] 2Admin Note: VIS GIVEN-DATED 04/28/12 Administered at [facility] 3Admin Note: VIS GIVEN [...] 02/18/23 16:01:00 EDT, CR Tablet, [facility]/pharmacy #[id number], Partial fill upon [...] Refills, Maintenance, 08/24/22 16:57:00 EDT, [facility], 90, USE 2 SPRAYS IN EACH NOSTRIL DAILY, 167.6, cm, 07/23/22 13:04:00 EDT, Height Start Date: 08/24/22 Status: Ordered gabapentin 100 mg oral capsule 2, capsule, By Mouth, Daily at bedtime, # 60 capsule, Refills 11, Maintenance, 06/25/23 12:25:00 EDT, Route to Pharmacy Electronically, [facility], 167.6, cm, 05/27/23 15:30:00 EDT, Height Start Date: 06/25/23 Status: Ordered Milk of Magnesia 8% oral suspension 30 mL = 2.4 Gm, By Mouth, Daily at bedtime, PRN for constipation, # 300 mL, 1 Refills, Maintenance,02/18/23 16:01:00 EDT, Suspension, [facility]/pharmacy #[id number], Partial fill upon [...] 5 Refills,Maintenance, 05/01/23 9:50:00 EDT, [facility], 167.6, cm, 02/18/23 15:20:00 EDT, Height Start Date: 05/01/23 Status: Ordered simvastatin 20 mg oral tablet 1, tablet, By Mouth, Daily at bedtime, # 90 tablet, Refills 1, Maintenance, 03/12/24 15:43:00 EDT, Route to Pharmacy Electronically, [facility] 82[facility], 167.6, cm, 08/29/23 11:50:00 EDT, Height, 77.2, [...] 6 Confirmed 2011 Active *BHN/CCA/ONECARE/CP- Jose EduardoaRivera [phone]/Health longterm, active care coordination Confirmed Active Premature ovarian [...] Team Personnel Name: Randy Elise MD Position: [facility] Physician - Primary Care Member Role: PCP Address: Address: [address] [place] [address] [place] [address]- Care Team Related Persons Name: SUDHIR SOSA Address: home [address] [address] [place] [address] Name: ZEYNEP SOSA Address: [place] [address] Name: ZEYNEP SOSA Address: home [address] [place] [address] Name: NONE, STATES
--- OUTSIDE RECORDS SUMMARY | 2024-08-19 00:47 | XMS_ITS | Continuity of Care Document ---
Author Organization [facility] Address [address] [place] [address]- Care Team Providers Care Credentialing Manager Name Role Phone Gosia OCONNELL, Randy Cook Primary Care Physician [phone] Encounter [facility] Date(s): 05/06/23 - 06/05/23 [facility] [address] [place] [address]- Attending Physician: Admtr, Ar8 Allergies, Adverse Reactions, Alerts No Known Medication Allergies Immunizations Given and Recorded Vaccine Date Status Refusal Reason [id number] bivalent booster vax 06/30/22 Recorded influenza virus [...] Gi rob 1Result Comment: [09/26/2015] ADMINISTERED AT [facility] 2Admin Note: VIS GIVEN-DATED 04/28/12 Administered at [facility] 3Admin Note: VIS GIVEN 4Admin Note: [...] Refills, Maintenance, 02/18/23 16:01:00 EDT, CR Tablet, [facility]/pharmacy #[id number], Partial fill upon [...] Refills, Maintenance, 08/24/22 16:57:00 EDT, [facility], 90, USE 2 SPRAYS IN EACH NOSTRIL DAILY, 167.6, cm, 07/23/22 13:04:00 EDT, Height Start Date: 08/24/22 Status: Ordered gabapentin 100 mg oral capsule 200 mg, 2, capsule, By Mouth, Daily at bedtime, # 60 capsule, Refills 11, Tot. Refills 11, Maintenance, 06/11/22 12:04:00 EDT, Route to Pharmacy Electronically, [facility]/pharmacy #[id number], Dose INCREASED 02/05/22. Please disregard last prescription, 167.6, cm,... Start Date: 06/11/22 Status: Ordered Milk of Magnesia 8% oral suspension 30 mL = 2.4 Gm, By Mouth, Daily at bedtime, PRN for constipation, # 300 mL, 1 Refills, Maintenance,02/18/23 16:01:00 EDT, Suspension, [facility]/pharmacy #[id number], Partial fill upon patient request if the prescription is for a schedule II opioid drug., 167.6,... Start Date: 02/18/23 Status: Ordered omeprazole 40 mg oral enteric coated capsule 1 capsule, By Mouth, 2 times a day, # 180 capsule, 1 Refills, Maintenance, 05/20/23 14:10:00 EDT, [facility], 167.6, cm, 05/06/23 11:25:00 EDT, Height Start [...] 5 Refills,Maintenance, 05/01/23 9:50:00 EDT, [facility], 167.6, cm, 02/18/23 15:20:00 EDT, Height Start Date: 05/01/23 Status: Ordered simvastatin 20 mg oral tablet 1, tablet, By Mouth, Daily at bedtime, # 90 tablet, Refills 1, Maintenance, 03/28/23 11:22:00 EDT, Route to Pharmacy Electronically, [facility], 167.6, cm, 02/18/23 15:20:00 EDT, Height Start [...] VERIFY Event Display: Patient Education/Instruction Authored Date: [id number] [facility] Clinical Summary Person Information Visit Date 10/01/2018 10:20 AM Name SRINATH SOSA Age 48 Years 1970 12:00 AM PCP Gosia OCONNELL, Randy Cook PCP Sex Female Race White Ethnicity Non-/Non- Language Barbadian You can now view a summary of your hospital visit from the comfort of your home through a free online portal called Ancestry. Ancestry is a website that allows you to securely view your medical information including discharge summary, medications and follow-up visits. You can also send a secure electronic message to your doctor???s office to request appointments, renew medicationsor just ask a question. You can enroll at [email or web address] or register during your next office visit. Smoking can increase your chances of developing chronic health problems and can cause harmful effects to other family members in your house. If you smoke, you are strongly encouraged to quit. Please call the [place] Smokers??? Helpline at 0-015-UPQENOW (or ) or log on to [email or web address] for more information. The National Suicide Prevention Hotline is available 20/05 if you or someone you know needs to find a reason to keep living. By calling 3-417-246-[facility] (0987) you'll be connected to a skilled, trained [...] primary care provider, you may find a [facility] provider by calling [facility] [employer] [facility] at [phone]. For information about the plan of care including goals and instructions for your diagnosis, please see the patient education orders section of this document. Patient Visit Summary: Future Appointments: Type Location Start [facility] MM Screening Mammo [facility] RAD 10/27/2018 3:15 PM 10/27/2018 3:30 PM Pending Follow-Up Instructions Patient Education Materials Additional Instructions: Patient Care team information Care Team Personnel Name: Randy Elise MD Position: S Physician - Primary Care Member Role: PCP Address: Address: [address] [place] [address] [place] [address]- Care Team Related Persons Name: HUMEL, SUDHIR Address: home [id number] [place] [address] Name: ZEYNEP SOSA Address: home [address] [place] [address] Name: ZEYNEP SOSA Address: [place] [address] Name: NONE, STATES
--- OUTSIDE RECORDS SUMMARY | 2024-08-19 00:47 | XMS_ITS | Continuity of Care Document ---
Author Organization [facility] Address [address] [place] [address]- Care Team Providers Care Angle Shearer Name Role Phone Randy Elise MD Primary Care Physician [phone] [place] [facility] [place] 06/12/24 - 08/06/24 [facility] [address] [place], [place] [phone] Attending Physician: Randy Elise MD Admitting Physician: [...] 09/06/22 Recorded zoster vaccine, inactivated 04/13/22 Recorded [id number] bivalent booster vax 06/30/22 Recorded SARS-CoV-2 (COVID-19) mRNA BNT-162b2 vac 09/18/21 Given SARS-CoV-2 (COVID-19) mRNA-1273 vaccine 03/14/21 R ecorded SARS-CoV-2 (COVID-19) mRNA-1273 vaccine 02/14/21 R ecorded pneumococcal 23-valent vaccine 01/31/19 Recorded tetanus/diphtheria/pertussis, acel(Tdap) 02/14/17 Given Tet/Diphth/Acel, Pertussis (oldterm) 4 12/07/08 Gi rob 1Result Comment: [09/26/2015] ADMINISTERED AT [facility] 2Admin Note: VIS GIVEN-DATED 04/28/12 Administered at [facility] 3Admin Note: VIS GIVEN 4Admin [...] Refills, Maintenance, 02/18/23 16:01:00 EDT, CR Tablet, [facility]/pharmacy #[id number], Partial fill upon patient request if the prescription is for a schedule II opioid drug., 167.6... Start Date: 02/18/23 Status: Ordered docusate sodium 100 mg oral capsule 100 mg, 1, capsule, By Mouth, 2 times a day, take twice a day to prevent constipation., # 60 capsule, Refills 11, Tot. Refills 11, Maintenance, 06/22/24 14:31:00 EDT, Route to Pharmacy Electronically, [facility]/pharmacy #[id number], Partial fill upon patient requ... Start Date: 06/22/24 Status: Ordered esomeprazole 40 mg oral enteric coated capsule 1 capsule = 40 mg, By Mouth, 2 times a day, Stop Omeprazole. Take on an emoty stomach., # 60 capsule, 6 Refills, Maintenance, 08/06/24 14:33:00 EDT, CR Capsule, [facility]/pharmacy #0843, Partial fill upon patient request [...] Refills, Maintenance, 08/24/22 16:57:00 EDT, [facility], 90, USE 2 SPRAYS IN EACH NOSTRIL DAILY, 167.6, cm, 07/23/22 13:04:00 EDT, Height Start Date: 08/24/22 Status: Ordered gabapentin 100 mg oral capsule 2, capsule, By Mouth, Daily at bedtime, # 60 capsule, Refills 11, Maintenance, 06/25/23 12:25:00 EDT, Route to Pharmacy Electronically, [facility], 167.6, cm, 05/27/23 15:30:00 EDT, Height Start [...] capsule, 1 Refills, Maintenance, 06/22/24 14:37:00 EDT, [facility]/pharmacy #0843, 167.6, cm, 06/22/24 13:58:00 EDT, [...] 60 tablet, 5 Refills,Maintenance, 05/01/23 9:50:00 EDT, [facility] STORE 36759, 167.6, cm, 02/18/23 15:20:00 EDT, Height Start Date: 05/01/23 Status: Ordered simvastatin 20 mg oral tablet 1, tablet, By Mouth, Daily at bedtime, # 90 tablet, Refills 1, Tot. Refills 1, Maintenance, 07/29/24 14:20:00 EDT, Route to Pharmacy Electronically, [facility]/pharmacy #[id number], 167.6, cm, 07/24/24 14:25:00 EDT, [...] rectal bleeding 6 Confirmed 2011 Active *BHN/CCA/ONECARE/CP- Floraverjose david [phone]/Health prison, active care coordination Confirmed Active Premature [...] Team Personnel Name: Randy Elise MD Position: [facility] Physician - Primary Care Member Role: PCP Address: Address: [address] [place] [address] [place] [address]- Care Team Related Persons Name: SUDHIR SOSA Address: home [address] [facility] [address] [place] [address] Name: ZEYNEP SOSA Address: [place] [address] [place] [address] Name: ZEYNEP SOSA Address: home [address] [place] [address] Name: NONE, PT STATES
--- OUTSIDE RECORDS SUMMARY | 2024-08-19 00:47 | XMS_ITS | Continuity of Care Document ---
Author Organization [facility] Address [address] [facility] [address] [place] [address]- Care Team Providers Care Signal Tower Operator Name Role Phone Randy Elise MD Primary Care Physician [place] [facility] [place]03[place] - 12/27/21 [facility] [address] [facility] [address], [address] [place] [address]- Attending Physician: Not on Staff, Attending MD [...] Gi rob 1Result Comment: [09/26/2015] ADMINISTERED AT [facility] 2Admin Note: VIS GIVEN-DATED 04/28/12 Administered at [facility] 3Admin Note: VIS GIVEN 4Admin Note: [...] # 48 mL, 1 Refills, [facility], 90, USE 2 SPRAYS IN EACH NOSTRIL DAILY, 167.6, cm, 11/02/21 9:05:00 EST, Height Start Date: 12/11/21 Status: Ordered gabapentin 100 mg oral capsule 100 mg, 1, capsule, By Mouth, Daily at bedtime, # 30 capsule, Refills 1, Tot. Refills 1, Maintenance, 12/25/21 15:07:00 EST, Route to Pharmacy Electronically, [facility]/pharmacy #[id number], Partial fill upon patient request if the prescription is for a schedule... Start Date: 12/25/21 Status: Ordered omeprazole 40 mg oral enteric coated capsule 1 capsule, By Mouth, 2 times a day, # 180 capsule, 1 Refills, [facility], 167.6, cm, 09/29/21 11:56:00 EST, Height Start [...] Refills, Maintenance, 03/28/21 9:37:00 EDT, REC Powder, [facility]/pharmacy #0843, Partial fill upon patient [...] 09/18/21 13:57:00 EST, Route to Pharmacy Electronically, [facility]/pharmacy #0843 Tablet,Partial fill upon patient [...] tablet, Refills 1, Route to Pharmacy Electronically, [facility] ST[facility] 45590, 167.6, cm, 11/02/21 9:05:00 EST, Height Start Date: 11/03/21 Status: Ordered Ventolin HFA 108 mcg/inh inhalation aerosol with adapter 1 puffs, Inhalation, 4 times a day, PRN for wheezing, # 8 Gm, 1 Refills, Maintenance, 05/04/20 15:51:00 EDT, Aerosol, [facility]/pharmacy #0843, 165.1, cm, 04/07/20 10:09:00 [...]
--- OUTSIDE RECORDS SUMMARY | 2024-08-19 00:47 | XMS_ITS | Continuity of Care Document ---
Author Organization [facility] Address [address] [place] [address]- Care Team Providers Care Machine Tracer Name Role Phone Randy Elise MD Primary Care Physician Encounter [facility] [place] Date(s): 12/01/19 - 12/08/19 [facility] [address] [place] [address]- [place] Encounter Diagnosis Sore throat(Discharge Diagnosis) - 12/01/19 Attending Physician: Fabio Dixon MD Referring Physician: Randy Elise MD Allergies, Adverse Reactions, Alerts No Known Medication Allergies Immunizations Given and Recorded Vaccine Date Status Refusal Reason tetanus/diphtheria/pertussis, acel(Tdap) 02/14/17 Given influenza virus vaccine, inactivated 1 06/27/15 Re corded influenza virus vaccine, inactivated 2 06/20/12 Gi rob influenza virus vaccine, inactivated 3 12/07/08 Gi rob Tet/Diphth/Acel, Pertussis (oldterm) 4 12/07/08 Gi rob 1Result Comment: [09/26/2015] ADMINISTERED AT [facility] 2Admin Note: VIS GIVEN-DATED 04/28/12 Administered at [facility] 3Admin Note: VIS GIVEN 4Admin Note: VIS GIVEN Medications benztropine 0.5 mg oral tablet 0.5 mg, 1, tablet, By Mouth, 2 times a day, # 60 tablet, Refills 1, Tot. Refills 1, Maintenance, 05/11/19 14:23:19 EDT, Route to Pharmacy Electronically, [id number], [facility]/pharmacy #[id number] Start Date: 05/11/19 Stop Date: [...] 16 Gm, 0 Refills, Maintenance, 12/19/17 12:40:34, [place] Start Date: 12/19/17 Status: Ordered Fluoxetine = 30 mg, By Mouth, Daily, 0 Refills, Maintenance, 02/16/19 12:54:33 EDT Start Date: 02/16/19 Status: Ordered FLUoxetine 10 mg oral capsule 10 mg, 1, capsule, By Mouth, Daily, Take in addition to Fluoxetine 20mg daily (total =30mg daily).,# 30 capsule, Refills 5, Tot. Refills 5, 09/14/19 13:00:46 EST, Route to Pharmacy Electronically, [id number], [facility]/pharmacy #[id number] Start Date: 09/14/19 Status: Ordered FLUoxetine 20 mg oral capsule 20 mg, 1, capsule, By Mouth, Daily, Take with Fluoxetine 10mg capsule (total dose = 30mg daily)., #30 capsule, Refills 5, Tot. Refills 5, Maintenance, 09/14/19 13:00:56 EST, Route to Pharmacy Electronically, [id number], [facility]/... Start Date: 09/14/19 Status: Ordered LORazepam [...] 2 each,0 Refills, Maintenance, 11/02/19 16:50:00 EST, [facility]/pharmacy #[id number], Drink 1 bottle 6 hours [...] Replace Required Details, Route to Pharmacy Electronically, [id number], [facility]/phar... Start Date: 09/14/19 Status: Ordered risperiDONE [...] 09/28/19 17:11:26 EST, Route to Pharmacy Electronically, [id number], [facility]/pharmacy #[id number] Start Date: 09/28/19 Stop Date: [...] tori Service Informant Sore throat Discharge Diagnosis 12/01/19 Vital Signs Most recent to oldest [Reference Range]: 1 Height 167.6 cm (12/01/19 12:50 PM) Weight 64.9 kg (12/01/19 12:50 PM) Oxygen Saturation [94-100 %] 99 % (12/01/19 12:50 PM) Pulse Rate [55-90 bpm] 110 bpm *H* (12/01/19 12:50 PM) Body Mass Index [18.5-24.99] 23.1 (12/01/19 12:50 PM) Blood Pressure [90-138/55-84 mm Hg] 111/ 70mm Hg (12/01/19 12:50 PM) Temperature [96.8-100.4 DegF] 97 DegF (12/01/19 12:50 PM) Social History Social History Type Response Smoking Status Never smoker entered on: 12/31/13 Sex
[2024-08-19] MEDS: Dicyclomine HCl 10 MG CAPSULE 20 MG PO (00:56)
[2024-08-19] MEDS: LORazepam 2 MG/ML VIAL 1 MG IVPUSH (00:56)
[2024-08-19 02:56] VITALS: PULSE 114
--- NOTE | 2024-08-19 02:56 | PC.NURSE ---
late entry- pt biba from home, a&ox4, respirations even and unlabored, pt reporting onset of abdominal pain, anal pain, nausea, vomiting, diarrhea, chest pain and shortness of breath x 1 day. pt reports being previously seen a [facility] and being discharged home. 20G placed in right hand, labs obtained. pt medicated per dec.
[2024-08-19] MEDS: 0.9 % Sodium Chloride 1,000 ML 999 ML IV (03:01)
--- NOTE | 2024-08-19 04:08 | PC.NURSE ---
pt initially tachy 114bpm, pt noted to be 99-100, plan to hold lopressor at this time.
[2024-08-19 04:09] VITALS: BP 114/55; PULSE 99; RESP 17
[2024-08-19 04:13] LABS: Appearance Urine Clear; Color Urine Yellow; Glucose Urine UA Negative (Negative); Leukocyte Esterase Urine Negative (Negative); Nitrite Urine Negative (Negative); PH 6.5 (5.0-9.0); Specific Gravity - Urine >= 1.030 (1.005-1.025); Urine Blood Negative (Negative); Urine Ketones 80 mg/dL (Negative); Urine Protein Negative (Neg-Trace)
--- NOTE | 2024-08-19 05:29 | PC.NURSE ---
zay booked by nurse discharge karen. pt assisted by this rn into [facility] at this time.
[2024-08-19 05:30] VITALS: BP 114/55; PULSE 99; RESP 17; TEMP 36.7; O2SAT 100
== END 2024-08-19 05:31 | disposition home or self-care (01) ==
PROVIDERS: Emergency Provider Internal Medicine
DX: F41.9 Anxiety disorder, unspecified (principal); K58.9 Irritable bowel syndrome, unspecified; R00.0 Tachycardia, unspecified; Z03.818 Encounter for observation for suspected exposure to other biological agents ruled out
CPT/HCPCS: 0241U; 80053; 81003; 83690; 84484; 85025; 93005; 96361; 96374; 99284; 99285; J2060

== ENCOUNTER → 2024-08-18 23:40 | Outpatient (BNV) | payer OTHER, SELFPAY | PROVIDERS: Emergency Provider Internal Medicine; Visit Provider Internal Medicine Cardiovascular Disease | DX: R00.0 Tachycardia, unspecified (principal) | CPT/HCPCS: 93010 ==

== ENCOUNTER 2025-02-08 16:10 | Emergency (ER) | payer OTHER, SELFPAY ==
[2025-02-08 16:15] VITALS: BP 120/70; PULSE 107; O2SAT 97
[2025-02-08 16:26] VITALS: BP 115/64; PULSE 117; RESP 19; TEMP 36.9; O2SAT 100; BMI 24.9
--- NOTE | 2025-02-08 16:26 | ED_ITS ---
HPI - General Adult General Chief complaint: General Medical Stated complaint: from assisted living, stomach,back,butt pain Time Seen by Provider: 02/09/25 01:34 Source: patient Mode of arrival: EMS Limitations: no limitations History of Present Illness ED Provider: Dr. 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 The patient states that she has been having back pain for years and it has gotten progressively worse. She states that over the last 24 hours her pain is increased. She states the pain is a sharp pain and she points to her lower lumbar area bilaterally when asked to localize the pain. She states the pain is worse with movement. The pain does not radiate down her legs. She denied numbness or weakness of her lower extremities. She denied loss of bowel or bladder control. Patient was also complaining of abdominal pain. Again she states she was had this abdominal pain for years. She points to her lower abdomen when asked to localize the pain. She states the pain is a sharp pain. There is no exacerbating factors. She also complains of buttocks pain. She states that her entire buttocks is painful. She has not noticed any rectal bleeding for rectal pain. Related Data Previous Rx's ?Medication ?Instructions ?Recorded dicyclomine 20 mg tablet 20 mg PO TID #20 tabs 08/19/24 cyclobenzaprine 10 mg tablet 10 mg PO TID PRN muscle pain or 02/09/25 spasm #20 tabs Allergies Allergy/AdvReac Type Severity Reaction Status Date / Time No Known Allergies Allergy Verified 02/08/25 16:28 [No Known Allergies*] Review of Systems 2 Review of Systems: Yes all other systems are reviewed and are negative PMFSH Social History Social History Advance Directives: No Advance Directives Information Provided: Yes Do you have a plan to hurt others: No Plan Physical Exam ED Vital Signs: Vital Signs - 24 hr 02/08/25 16:26 Temperature 98.5 F Pulse Rate 117 H Respiratory Rate 19 Blood Pressure 115/64 Pulse Oximetry 100 Oxygen Delivery Method Room Air BMI result Body Mass Index 24.9 Vital signs revealed an elevated heart rate of 117 otherwise unremarkable Exam: General: Awake, alert in no distress Head: Normocephalic, atraumatic EENT: PERRL, Lids normal, sclera normal, conjunctiva normal, nose normal , ears normal, throat without erythema or exudates Neck: Supple, no adenopathy Lung: breath sounds symmetric, no wheezing, rales or rhonchi Chest: symmetric movement, nontender Heart: regular rate and rhythm, normal S1, S2 no murmurs or rubs Abdomen: soft, mild diffuse tenderness with no localizing tenderness, normoactive bowel sounds, no rebound, no voluntary or involuntary guarding Back: no vertebral tenderness, no CVAT, patient was have tenderness palpation of her paraspinal muscles in the lumbar sacral area bilaterally with spasm of these muscles. Buttocks exam: The skin of the buttocks area revealed no erythema or increased warmth. Patient does have tenderness with palpation of her gluteal muscles bilaterally. On inspection of the rectum the patient has no external hemorrhoids or fissures noted. Extremities: no deformities, moves all extremities symmetrically Neuro: Awake, alert, oriented, normal speech, cranial nerves intact, moves all extremities symmetrically Psych: Pleasant, cooperative Course Course Course Narrative: This is a Rapid Medical Examination (RME) performed by Olivia Miller PA-C in triage. Full HPI, ROS, assessment and treatment plan per primary provider in the Main ED. 02/08/25 [id number] Hx: 54 yo female hx parkinson, UC, GERD, IBS w/ anal fissure, metabolic encephalopathy here via EMS from [facility] for eval of abdominal pain, back pain, and rectal pain for most of my life , worsening today. PE/vitals: well appearing. exam limited in triage. 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 Patient states she was had these pains for years but they have gotten worse over the last 24 hours. Vital signs did reveal an elevated heart rate otherwise unremarkable. Abdominal exam revealed mild diffuse tenderness. Back exam revealed tenderness and spasm of the paraspinal muscles in the lumbar sacral area bilaterally. Buttocks and rectal inspection did not reveal any significant abnormalities. Differential diagnosis: ?Includes but is not limited to gastritis, pancreatitis, GERD, lumbar sacral muscle spasm, muscle injury, external hemorrhoids, rectal fissures, cellulitis Course: My independent interpretation patient's laboratory evaluation is as follows: CBC was normal. CMP was normal. Lipase was negative. At this time I do not have a clear etiology for the patient's pain however it is most likely related to her gastritis or chronic constipation. Patient has lower back pain is most likely caused by musculoskeletal injury/spasm. I did discuss this with the patient. Patient was advised to continue taking your Tylenol for pain. She was started on Flexeril 10 mg 3 times a day as needed for spasm. She was given her 1st dose of Flexeril 10 mg orally here in the emergency department. She was given printed and verbal instructions and discharged home. Admission/Observation Consideration of admission/observation: Escalation of care including admission/observation considered (Yes) Lab Data MDM Lab Attestation statement: I reviewed the patient's lab results. 02/08/25 16:45 02/08/25 16:45 Labs: Lab Results 02/08/25 Range/Units 16:45 WBC 6.1 (4.8-10.8) X10*3/uL RBC 4.61 (4.20-5.50) X10*6/uL Hgb 12.8 (12.0-16.0) g/dl Hct 39.4 (37.0-47.0) % MCV 85.5 (80.0-98.0) fL MCH 27.8 (27.0-33.0) pg MCHC 32.5 (31.0-35.0) g/dl RDW 15.5 (11.0-16.0) % Plt Count 304 (160-400) X10*3/uL MPV 10.2 (9.4-12.3) fL Immature Gran % (Auto) 0.2 (0.0-0.4) % Neut % (Auto) 46.9 (45-73) % Lymph % (Auto) 43.6 H (20-40) % Calloway % (Auto) 6.5 (2-11) % Eos % (Auto) 2.1 (0-4) % Baso % (Auto) 0.7 (0-2) % Lymph # (Auto) 2.7 (1.2-4.9) X10*3/uL Calloway # (Auto) 0.4 (0.1-1.2) X10*3/uL Eos # (Auto) 0.1 (0.0-0.4) X10*3/uL Baso # (Auto) 0.0 (0.0-0.2) X10*3/uL Abs Immat Gran (auto) 0.01 (0.00-0.03) X10*3/uL Absolute Neuts (auto) 2.9 (2.0-8.3) x10*3/uL Absolute Nucleated RBC 0.000 (0.0-0.012) X10*3/uL Nucleated RBC % (auto) 0.0 (0.0-0.2) /100WBC Sodium 141 (135-145) mmol/L Potassium 3.8 D (3.3-5.1) mmol/L Chloride 108 (96-108) mmol/L Carbon Dioxide 26 (22-29) mmol/L Anion Gap 11 L (12-20) BUN 14 (9-16) mg/dL Creatinine 0.79 (0.5-1.4) mg/dL Estim Creat Clear Calc 75.3 Estimated GFR > 60 Random Glucose 118 H (60-115) mg/dL Calcium 9.3 (8.4-10.2) mg/dL Magnesium 2.2 (1.6-2.6) mg/dL Total Bilirubin 0.3 (0.0-1.0) mg/dL AST 18 (5-31) U/L ALT 20 (0-31) U/L Alkaline Phosphatase 85 (39-117) U/L Total Protein 7.3 (6.5-8.0) g/dL Albumin 4.3 (3.5-5.0) g/dL Lipase 22 (8-78) U/L Prescription Management I considered prescription management with: Other (anti spasm medications: Flexeril) Chronic Conditions Patient?s care impacted by: Other (GERD) Discharge Plan Discharge Clinical Impression: Back pain, Abdominal pain, Acute buttock pain Patient Disposition: Home, Self-Care Instructions: Abdominal Pain (ED) Additional Instructions: Your laboratory evaluation included a complete blood count, comprehensive metabolic panel and lipase. All of these tests were normal which is reassuring. Your abdominal pain is most likely caused by your GERD. Continue taking medications as prescribed by your providers. Your back and buttocks pain are most likely caused by muscle inflammation or spasm. Take Flexeril (cyclobenzaprine) 10 mg pills, 1 pill every 6-8 hours as needed for pain or spasm. ?This medication will make you sleepy. ?Do not drive or work while taking this medication. Continue taking your other medications as prescribed by your providers. Follow-up with your doctor in 2 days. Please return to the emergency department if your symptoms get worse or if you develop any symptoms that are concerning to you. Prescriptions: New cyclobenzaprine 10 mg tablet 10 mg PO TID PRN (Reason: muscle pain or spasm) Qty: 20 0RF No Action dicyclomine 20 mg tablet 20 mg PO TID Qty: 20 0RF Print Language: [place] Citizen
[2025-02-08 16:52] LABS: MANUAL DIFF FLAG NO
[2025-02-08 16:53] LABS: Basophils Percent Auto 0.7 % (0-2); Eosinophils Absolute Auto 0.1 X10*3/uL (0.0-0.4); Eosinophils Percent Auto 2.1 % (0-4); Hematocrit 39.4 % (37.0-47.0); Hemoglobin 12.8 g/dl (12.0-16.0); Imm Gran Abs Auto 0.01 X10*3/uL (0.00-0.03); Imm Gran Pct Auto 0.2 % (0.0-0.4); Lymphocytes Absolute Auto 2.7 X10*3/uL (1.2-4.9); Lymphocytes Percent Auto 43.6 % (20-40); Mean Corpuscular HGB Conc 32.5 g/dl (31.0-35.0); Mean Corpuscular Hemoglobin 27.8 pg (27.0-33.0); Mean Corpuscular Volume 85.5 fL (80.0-98.0); Mean Platelet Volume 10.2 fL (9.4-12.3); Monocytes Absolute Auto 0.4 X10*3/uL (0.1-1.2); Monocytes Percent Auto 6.5 % (2-11); Neutrophils Absolute Auto 2.9 x10*3/uL (2.0-8.3); Neutrophils Percent Auto 46.9 % (45-73); Platelet Count 304 X10*3/uL (160-400); Red Blood Count 4.61 X10*6/uL (4.20-5.50); Red Cell Distribution Width 15.5 % (11.0-16.0); White Blood Count 6.1 X10*3/uL (4.8-10.8)
[2025-02-08 17:07] LABS: Alanine Aminotransferase 20 U/L (0-31); Albumin Level 4.3 g/dL (3.5-5.0); Alkaline Phosphatase 85 U/L (39-117); Anion Gap 11 (12-20); Aspartate Amino Transferase 18 U/L (5-31); Bilirubin Total 0.3 mg/dL (0.0-1.0); Blood Urea Nitrogen 14 mg/dL (9-16); Calcium 9.3 mg/dL (8.4-10.2); Carbon Dioxide 26 mmol/L (22-29); Chloride 108 mmol/L (96-108); Creatinine Clr Calc Pharmacy 75.3; Estimated Glomerular Filt Rate > 60; Glucose Random 118 mg/dL (60-115); Lipase 22 U/L (8-78); Magnesium 2.2 mg/dL (1.6-2.6); Potassium 3.8 mmol/L (3.3-5.1); Sodium 141 mmol/L (135-145); Total Protein 7.3 g/dL (6.5-8.0)
[2025-02-09] MEDS: Cyclobenzaprine HCl 10 MG TABLET PO (02:37)
[2025-02-09 02:42] VITALS: BP 139/91; PULSE 110; RESP 18; TEMP 36.6; O2SAT 97
== END 2025-02-09 02:54 | disposition home or self-care (01) ==
PROVIDERS: Physician Assistant Medical; Emergency Provider Emergency Medicine Emergency Medical Services; PCP Internal Medicine
DX: M54.50 Low back pain, unspecified (principal); R10.9 Unspecified abdominal pain; R52 Pain, unspecified; G20.B1 Parkinson's disease with dyskinesia, without mention of fluctuations
CPT/HCPCS: 36415; 80053; 83690; 83735; 85025; 99283

== ENCOUNTER 2025-02-16 13:10 | Emergency (ER) | payer OTHER, SELFPAY ==
--- NOTE | 2025-02-16 | ECG_ITS ---
Test Reason : CP/SOB Blood Pressure : */* mmHG Vent. Rate : 103 BPM Atrial Rate : 103 BPM P-R Int : 138 ms QRS Dur : 88 ms QT Int : 330 ms P-R-T Axes : 31 -26 19 degrees QTcB Int : 432 ms Sinus tachycardia Otherwise normal ECG When compared with ECG of 18-Aug-2024 23:40, No significant change was found Referred By: Generic ED Physician Electronically Signed By: CHAI TOWNSEND
--- NOTE | ~2025-02-16 | XR_ITS ---
EXAMINATION: XR ABDOMEN KUB CLINICAL INDICATION: constipation, nausea COMPARISON: None available. TECHNIQUE: AP view of the abdomen. FINDINGS: No dilated loops of bowel identified. There is extensive stool seen throughout the colon consistent with obstipation. No indirect evidence of free air. No organomegaly. No abnormal soft tissue calcifications. Mild linear atelectasis in the lung bases. No bony abnormalities. XR/XR KUB IMPRESSION: Abundant stool seen throughout the colon consistent with obstipation. No bowel obstruction. Electronically signed by: Perry Kurtz MD 02/16/2025 03:29 PM EDT
--- NOTE | ~2025-02-16 | XR_ITS ---
EXAMINATION: XR CHEST CLINICAL INFORMATION: shortness of breath, chest pain COMPARISON: 02/03/2019 TECHNIQUE: 2 views of the chest were obtained. FINDINGS: The cardiac, hilar, and mediastinal contours are normal.Suspect a moderate size hiatus hernia. Low lung volumes, with mild basilar bronchovascular crowding. Within these confines, lungs demonstrate linear type atelectasis in both bases. There is no pneumothorax or pleural effusion. There is no focal osseous or soft tissue abnormality. XR/XR chest 2V IMPRESSION: 1. Low lung volumes with mild bronchovascular crowding. Linear opacities, likely atelectasis, in the lung bases. 2. Suspect small to moderate size hiatus hernia. Electronically signed by: Perry Kurtz MD 02/16/2025 03:27 PM EDT
[2025-02-16 13:22] VITALS: BP 107/71; PULSE 132; O2SAT 97
[2025-02-16 13:29] VITALS: BMI 25.3
[2025-02-16 13:38] VITALS: BP 122/75; PULSE 111; RESP 16; O2SAT 94
[2025-02-16 13:40] VITALS: BP 120/72; PULSE 106; RESP 18; TEMP 36.8; O2SAT 97; BMI 24.9
--- NOTE | 2025-02-16 14:43 | ED_ITS ---
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 Patient reports constant sharp bilateral chest pain still present in the ED. No radiation. She did not trial any [id number] medications for her pain. Patient denies any history of MD, PE, asthma, recent travel, blood thinners, LE pain/swelling. Patient reports her last bowel movement being 2 days ago. This is typical for her however she is not currently on a bowel regimen. eports feeling warm but is unsure if related to perimenopause symptoms. Related Data Previous Rx's ?Medication ?Instructions ?Recorded dicyclomine 20 mg tablet 20 mg PO TID #20 tabs 08/19/24 cyclobenzaprine 10 mg tablet 10 mg PO TID PRN muscle pain or 02/09/25 spasm #20 tabs docusate sodium 100 mg capsule 100 mg PO BID PRN constipation #14 02/16/25 (Colace) caps polyethylene glycol 3350 17 gram 17 g PO DAILY PRN constipation #14 02/16/25 oral powder packet (Miralax) ea Allergies Allergy/AdvReac Type Severity Reaction Status Date / Time No Known Allergies Allergy Verified 02/16/25 13:41 [No Known Allergies*] Review of Systems 2 Review of Systems: Yes all other systems are reviewed and are negative PMFSH Past Medical History Attestation statement: The following information was validated with the patient. Source: old records reviewed and nursing notes reviewed Physical Exam 2 Vital Signs: Vital Signs: Last Vital Signs Temp 98.2 F 02/16/25 19:25 Pulse 100 02/16/25 19:25 Resp 18 02/16/25 19:25 BP 125/80 02/16/25 19:25 Pulse Ox 97 02/16/25 19:25 O2 Del Method Room Air 04/22/25 19:25 BMI result Body Mass Index 24.9 Afebrile. Mildly tachycardic. Normotensive General: Well appearing, NAD Skin: Warm, dry, intact. No rashes or lesions. Head: Normocephalic, atraumatic. EENT: Hearing is intact b/l. Conjunctiva clear. Sclera is anicteric. Cardiac: Chest wall symmetric. RRR. No JVD. No tenderness to palpation of anterior, lateral or posterior chest wall. Lungs: Normal respiratory effort without accessory muscle use. CTA bilaterally. Abdomen: soft, nondistended, nontender, no rebound or guarding. active bs Ext: Upper and lower extremities atraumatic. No pitting edema. No calf tenderness. Neuro: AOx3. Normal speech. Course Course Course Narrative: 1627 -- CBC without leukocytosis or left shift. No anemia. H&H stable. Chemistry without acute electrolyte abnormality requiring intervention. No EDUARD. Liver function at baseline. Troponin undetectable. EKG showing normal sinus rhythm, rate of 103 beats per minute, no acute ischemic changes or ST elevations. Lipase WNL. D-dimer undetectable. PE unlikely. Negative COVID, flu, RSV. > chest x-ray without infiltrate or consolidation to suggest pneumonia. Incidental finding of small to moderate hiatal hernia. KUB showing abundant stool throughout the colon consistent with obstipation. There is no bowel obstruction identified. Patient does report chronic constipation and she is not currently on a bowel regimen. Last BM 2 days ago. Passing flatus. No concern for obstruction. Will order enema. 1900 -- patient had large BM following enema. no abd pain. reports improvement in chest pain w/ tylenol. delta trop flat. > discussed all w/u results with patient. will send home on bowel regimen, advised to f/u with pcp. 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 History without high risk features (not substernal, no exertional component, not relieved with rest).? Minimal CAD risk factors (including age). Exam without evidence of volume overload. EKG without signs of active ischemia. HEART score: 1.? Given the timing of pain to ED presentation, plan to send delta troponin to evaluate for NSTEMI. Differential diagnosis also includes anemia, electrolyte abnormality, costochondritis, msk pain, pneumonia, pleurisy, GERD, PE (perc 2), constipation, UTI Presentation not consistent with pneumothorax, thoracic aortic dissection, cardiac effusion or tamponade, myocarditis, pericarditis. Unlikely bowel obstruction, acute abdomen. Plan: labs, troponin, ddimer, EKG, CXR, tylenol, reassessment Differential Diagnosis Differential Diagnoses: The differential diagnosis associated with the presentation includes as above Admission/Observation Not indicated Lab Data MDM Lab Attestation statement: I reviewed the patient's lab results. As above 02/16/25 15:42 02/16/25 15:42 Labs: Lab Results 02/16/25 02/16/25 02/16/25 Range/Units 14:56 15:42 17:26 WBC 6.3 (4.8-10.8) X10*3/uL RBC 4.46 (4.20-5.50) X10*6/uL Hgb 12.4 (12.0-16.0) g/dl Hct 38.4 (37.0-47.0) % MCV 86.1 (80.0-98.0) fL MCH 27.8 (27.0-33.0) pg MCHC 32.3 (31.0-35.0) g/dl RDW 15.2 (11.0-16.0) % Plt Count 276 (160-400) X10*3/uL MPV 10.1 (9.4-12.3) fL Immature Gran % (Auto) 0.2 (0.0-0.4) % Neut % (Auto) 54.6 (45-73) % Lymph % (Auto) 37.3 (20-40) % [place] % (Auto) 6.2 (2-11) % Eos % (Auto) 1.4 (0-4) % Baso % (Auto) 0.3 (0-2) % Lymph # (Auto) 2.4 (1.2-4.9) X10*3/uL [place] # (Auto) 0.4 (0.1-1.2) X10*3/uL Eos # (Auto) 0.1 (0.0-0.4) X10*3/uL Baso # (Auto) 0.0 (0.0-0.2) X10*3/uL Abs Immat Gran (auto) 0.01 (0.00-0.03) X10*3/uL Absolute Neuts (auto) 3.5 (2.0-8.3) x10*3/uL Absolute Nucleated RBC 0.000 (0.0-0.012) X10*3/uL Nucleated RBC % (auto) 0.0 (0.0-0.2) /100WBC D-Dimer High Sensitivty < 150 NG/ML Sodium 141 (135-145) mmol/L Potassium 4.2 (3.3-5.1) mmol/L Chloride 106 (96-108) mmol/L Carbon Dioxide 28 (22-29) mmol/L Anion Gap 11 L (12-20) BUN 16 (9-16) mg/dL Creatinine 0.81 (0.5-1.4) mg/dL Estim Creat Clear Calc 73.4 Estimated GFR > 60 Random Glucose 93 (60-115) mg/dL Calcium 9.5 (8.4-10.2) mg/dL Magnesium 2.3 (1.6-2.6) mg/dL Total Bilirubin 0.4 (0.0-1.0) mg/dL AST 17 (5-31) U/L ALT 13 (0-31) U/L Alkaline Phosphatase 82 (39-117) U/L Troponin I High Sens < 2.7 < 2.7 (<3.5-17.0) ng/L Total Protein 7.1 (6.5-8.0) g/dL Albumin 4.1 (3.5-5.0) g/dL Lipase 16 (8-78) U/L Influenza Type A (PCR) NEGATIVE (Negative) Influenza Type B (PCR) NEGATIVE (Negative) RSV RNA Qual (PCR) NEGATIVE (Negative) SARS-CoV-2 RNA (RT-PCR) NEGATIVE (Negative) Independent Interpretation I performed an independent interpretation of an: EKG and Plain X-Ray Interpretation: EKG showing sinus tachycardia with a rate of 103 beats per minute, no acute ischemic changes or ST elevations Chest x-ray without focal consolidation or infiltrate to suggest pneumonia KUB with abundant stool Radiology Impression Discussion of test interpretation with radiology: I have reviewed the radiologist's reading. Radiologist Impression: Procedure(s): XR chest 2V Accession Number(s): [id number] cc: Ruby Miller; RANDY ELISE MD~ EXAMINATION: XR CHEST CLINICAL INFORMATION: shortness of breath, chest pain COMPARISON: 02/03/2019 TECHNIQUE: 2 views of the chest were obtained. FINDINGS: The cardiac, hilar, and mediastinal contours are normal.Suspect a moderate size hiatus hernia. Low lung volumes, with mild basilar bronchovascular crowding. Within these confines, lungs demonstrate linear type atelectasis in both bases. There is no pneumothorax or pleural effusion. There is no focal osseous or soft tissue abnormality. XR/XR chest 2V IMPRESSION: 1. Low lung volumes with mild bronchovascular crowding. Linear opacities, likely atelectasis, in the lung bases. 2. Suspect small to moderate size hiatus hernia. Procedure(s): XR KUB Accession Number(s): [id number] cc: Ruby Miller; RANDY ELISE MD~ EXAMINATION: XR ABDOMEN KUB CLINICAL INDICATION: constipation, nausea COMPARISON: None available. TECHNIQUE: AP view of the abdomen. FINDINGS: No dilated loops of bowel identified. There is extensive stool seen throughout the colon consistent with obstipation. No indirect evidence of free air. No organomegaly. No abnormal soft tissue calcifications. Mild linear atelectasis in the lung bases. No bony abnormalities. XR/XR KUB IMPRESSION: Abundant stool seen throughout the colon consistent with obstipation. No bowel obstruction. External Record Review External record reviewed: Inpatient record Prescription Management I considered prescription management with: Other (MiraLax, Colace) Chronic Conditions Patient?s care impacted by: Other (Constipation) Social Determinants Patient?s care significantly limited by Social Determinants of Health including: Other Social Determinant of Health Critical Care Time Critical Care Time Critical Care Time: No Discharge Plan Discharge Clinical Impression: Constipation, Atypical chest pain Patient Disposition: Home, Self-Care Instructions: Constipation (ED), High Fiber Diet (ED) Additional Instructions: Your blood work today is normal. Your imaging shows that you are constipated. See home care instructions. There is no evidence of bowel obstruction. I recommend using stool softeners such as colace 100 mg twice daily. In addition, take over the counter Miralax 2-3 times daily until you begin having multiple large volume bowel movements. Follow up with your doctor in 2 weeks. Return with new or worsening symptoms. In the case of an emergency call 911. You were also evaluated in the Emergency Department today for chest pain. Your evaluation has shown no signs of medical conditions requiring emergent intervention at this time. I recommend that you follow up with your primary care provider or your counter installer as soon as possible for further testing as an outpatient. If you do not have one, a referral has been provided. Please call them to make an appointment, they will not call you. Return to the Emergency Department if you experience worsening or uncontrolled chest pain, shortness of breath, light headedness, feeling faint, nausea, vomiting, or any other concerning symptoms. Prescriptions: New polyethylene glycol 3350 [Miralax] 17 gram powder in packet 17 g PO DAILY PRN (Reason: constipation) Qty: 14 0RF docusate sodium [Colace] 100 mg capsule 100 mg PO BID PRN (Reason: constipation) Qty: 14 0RF No Action dicyclomine 20 mg tablet 20 mg PO TID Qty: 20 0RF cyclobenzaprine 10 mg tablet 10 mg PO TID PRN (Reason: muscle pain or spasm) Qty: 20 0RF Referrals: Randy Elise MD [Primary Care Provider] - Interventions: ED Discharge Assessment Last Done: 02/16/25 19:25 Discharge Date/Time: 02/16/25 19:39 Print Language: Turkish
[2025-02-16] MEDS: Acetaminophen 325 MG TABLET 650 MG PO (15:47)
[2025-02-16 15:48] LABS: MANUAL DIFF FLAG NO
[2025-02-16 15:50] LABS: Basophils Percent Auto 0.3 % (0-2); Eosinophils Absolute Auto 0.1 X10*3/uL (0.0-0.4); Eosinophils Percent Auto 1.4 % (0-4); Hematocrit 38.4 % (37.0-47.0); Hemoglobin 12.4 g/dl (12.0-16.0); Imm Gran Abs Auto 0.01 X10*3/uL (0.00-0.03); Imm Gran Pct Auto 0.2 % (0.0-0.4); Lymphocytes Absolute Auto 2.4 X10*3/uL (1.2-4.9); Lymphocytes Percent Auto 37.3 % (20-40); Mean Corpuscular HGB Conc 32.3 g/dl (31.0-35.0); Mean Corpuscular Hemoglobin 27.8 pg (27.0-33.0); Mean Corpuscular Volume 86.1 fL (80.0-98.0); Mean Platelet Volume 10.1 fL (9.4-12.3); Monocytes Absolute Auto 0.4 X10*3/uL (0.1-1.2); Monocytes Percent Auto 6.2 % (2-11); Neutrophils Absolute Auto 3.5 x10*3/uL (2.0-8.3); Neutrophils Percent Auto 54.6 % (45-73); Platelet Count 276 X10*3/uL (160-400); Red Blood Count 4.46 X10*6/uL (4.20-5.50); Red Cell Distribution Width 15.2 % (11.0-16.0); White Blood Count 6.3 X10*3/uL (4.8-10.8)
[2025-02-16 15:53] LABS: Influenza A PCR NEGATIVE (Negative); Influenza B PCR NEGATIVE (Negative); Resp Syncy Virus RNA Qual PCR NEGATIVE (Negative); SARS COV2 PCR INHOUSE NEGATIVE (Negative)
[2025-02-16 15:58] LABS: D Dimer High Sensitivity < 150 NG/ML
[2025-02-16 16:03] LABS: Anion Gap 11 (12-20)
[2025-02-16 16:09] LABS: Alanine Aminotransferase 13 U/L (0-31); Albumin Level 4.1 g/dL (3.5-5.0); Aspartate Amino Transferase 17 U/L (5-31); Bilirubin Total 0.4 mg/dL (0.0-1.0); Blood Urea Nitrogen 16 mg/dL (9-16); Calcium 9.5 mg/dL (8.4-10.2); Carbon Dioxide 28 mmol/L (22-29); Chloride 106 mmol/L (96-108); Creatinine Clr Calc Pharmacy 73.4; Estimated Glomerular Filt Rate > 60; Glucose Random 93 mg/dL (60-115); Lipase 16 U/L (8-78); Magnesium 2.3 mg/dL (1.6-2.6); Potassium 4.2 mmol/L (3.3-5.1); Sodium 141 mmol/L (135-145); Total Protein 7.1 g/dL (6.5-8.0)
[2025-02-16 16:15] LABS: Troponin-I High Sensitivity < 2.7 ng/L (<3.5-17.0)
--- OUTSIDE RECORDS SUMMARY | 2025-02-16 16:38 | XMS_ITS | Continuity of Care Document ---
Author Organization [facility] Address [address] [address] Phone Care Team Providers Care Doctor Of Dental Surgery Name Role Phone Stuart OCONNELL/KHURRAM/DANIEL, Tereso Unavailable Unavaila ble Advance Directives Directive Yes / No Effective Date File Name No Information Encounters Encounter Description Practice Location Reason(s) For Visit Diagnoses Date Provider [facility], [address], [id number], tel:[phone] [address] [place] [address] No Information 2024 Stuart Rider. 1 [place], [place], [id number], [place]. tel:[phone] Family History Family Member Type Diagnosis Age At Onset No Information Payers Payer name Insurance type Covered green party ID Authoriza tion(s) No Information Social History Type Description Quantity Date Captured Comments Sex Female Smoking Status No Information Chief Complaint And Reason For Visit No Information History Of Present Illness Encounter Date Complaint History Of Prese nt Illness No Information Instructions Date Instruction Additional Infor mation No Information Assessments Type Assessment Date No Information
[2025-02-16 17:06] LABS: Alkaline Phosphatase 82 U/L (39-117)
[2025-02-16 17:52] LABS: Troponin-I High Sensitivity < 2.7 ng/L (<3.5-17.0)
[2025-02-16 19:25] VITALS: BP 125/80; PULSE 100; RESP 18; TEMP 36.8; O2SAT 97
--- NOTE | 2025-02-16 19:27 | PC.NURSE ---
Nurse to Nurse report given to Lilliam Fragoso.
== END 2025-02-16 19:39 | disposition home or self-care (01) ==
PROVIDERS: Physician Assistant Medical; Emergency Provider Emergency Medicine; PCP Internal Medicine
DX: K59.00 Constipation, unspecified (principal); R06.02 Shortness of breath; R07.89 Other chest pain; R11.0 Nausea
CPT/HCPCS: 0241U; 36415; 71046; 74018; 80053; 83690; 83735; 84484; 85025; 85379; 93005; 99284

== ENCOUNTER → 2025-02-16 13:44 | Outpatient (BNV) | payer OTHER, SELFPAY | PROVIDERS: Emergency Provider Emergency Medicine; PCP Internal Medicine; Visit Provider Internal Medicine | DX: R00.0 Tachycardia, unspecified (principal) | CPT/HCPCS: 93010 ==

== ENCOUNTER → 2025-02-16 14:57 | Outpatient (BNV) | payer OTHER, SELFPAY | PROVIDERS: Emergency Provider Emergency Medicine; PCP Internal Medicine; Visit Provider Radiology Diagnostic Radiology | DX: R06.02 Shortness of breath (principal); R11.0 Nausea | CPT/HCPCS: 71046; 74018 ==

== ENCOUNTER 2025-02-18 07:11 | Inpatient (IN) | payer OTHER, SELFPAY ==
[2025-02-18] VITALS (7 sets, daily range): BP systolic 99–125; BP diastolic 55–80; PULSE 84–115; RESP 16–20; TEMP 36.4–37; O2SAT 94–99; BMI 24.9
--- NOTE | 2025-02-18 | ECG_ITS ---
Test Reason : cp Blood Pressure : */* mmHG Vent. Rate : 95 BPM Atrial Rate : 95 BPM P-R Int : 136 ms QRS Dur : 92 ms QT Int : 342 ms P-R-T Axes : 33 -13 19 degrees QTcB Int : 429 ms Normal sinus rhythm Incomplete right bundle branch block Borderline ECG When compared with ECG of 16-Feb-2025 13:44, No significant change was found Referred By: Generic ED Physician Electronically Signed By: CHAI TOWNSEND
--- NOTE | ~2025-02-18 | XR_ITS ---
EXAMINATION: XR CHEST CLINICAL INFORMATION: SOB COMPARISON: February 16, 2025. TECHNIQUE: 2 views of the chest were obtained. FINDINGS: Pulmonary reticular pattern. Blunting of the posterior costophrenic angles. Moderate to large size hiatal hernia. No pneumothorax. Cardiomediastinal silhouette size is normal. Multilevel thoracic and upper lumbar spondylosis. XR/XR chest 2V IMPRESSION: Mild interstitial edema and bilateral pleural effusions, small to moderate volume, similar to slightly worsened since prior exam. Electronically signed by: Hamlet Stephens MD 02/18/2025 10:42 AM EDT
--- NOTE | ~2025-02-18 | CT_ITS ---
CLINICAL HISTORY: s p fall --- Additional Notes or Special Instructions: change in speech and mental status CT head without contrast Comparison: None Findings: No intra-axial mass, midline shift, hydrocephalus, or acute hemorrhage. No significant atrophy-like change or white matter disease. There is no sinus or mastoid fluid. The orbits are within normal limits. No skull fracture. IMPRESSION: 1. No acute intracranial findings. This document has been electronically signed by: Marguerite Adamson MD on 02/28/2025 16:48:58
--- NOTE | ~2025-02-18 | XR_ITS ---
CLINICAL HISTORY: s p fall on buttox co left hip pain 2 view left hip Comparison: None Findings: No acute fracture or dislocation. No significant arthritic change. The soft tissues are unremarkable. IMPRESSION: No acute findings. This document has been electronically signed by: Marguerite Adamson MD on 02/28/2025 13:12:14
--- OUTSIDE RECORDS SUMMARY | 2025-02-18 07:55 | XMS_ITS | Continuity of Care Document ---
Author Organization [facility] Address [address] [address] Phone Care Team Providers Care Lead Portfolio Manager Name Role Phone Stuart OCONNELL/KHURRAM/DANIEL, Tereso Unavailable Unavaila ble Advance Directives Directive Yes / No Effective Date File Name No Information Encounters Encounter Description Practice Location Reason(s) For Visit Diagnoses Date Provider [facility], [address], [id number], tel:[phone] [address] [place] [address] No Information 2024 Stuart Rider. 1 [place], [place], [id number], [place]. tel:[phone] Family History Family Member Type Diagnosis Age At Onset No Information Payers Payer name Insurance type Covered republican ID Authoriza tion(s) No Information Social History Type Description Quantity Date Captured Comments Sex Female Smoking Status No Information Chief Complaint And Reason For Visit No Information History Of Present Illness Encounter Date Complaint History Of Prese nt Illness No Information Instructions Date Instruction Additional Infor mation No Information Assessments Type Assessment Date No Information
--- NOTE | 2025-02-18 08:28 | ED_ITS ---
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 She states SOB started this morning while on a walk and is associated with nasal congestion, sore throat, and some mild abdominal discomfort which started approximately 2 days ago. She is also endorsing mild dysuria. Patient was seen 2 days ago (02/16) in the [facility] due to shortness of breath and some mild abdominal pain. She states her symptoms feel different from her last presentation as her SOB has worsened in severity. During her last presentation to the ED Chest X-ray revealed small hiatal hernia without infiltrates or consolidations. She received an enema and had a large BM. She states she cannot remember when her last bowel movement was or if she is passing flatus. She denies chest pain, palpitations, fever, cough, chills, nausea, vomiting. She denies smoking history. MD elicited complaint: shortness of breath Onset (ago): day(s) Timing: constant Associated symptoms: denies other symptoms Related Data Home Medications ?Medication ?Instructions ?Recorded ?Confirmed acetaminophen 325 mg capsule 650 mg PO Q4H PRN Fever Or Pain 02/18/25 02/18/25 benztropine 0.5 mg tablet 0.5 mg PO BID 02/18/25 02/18/25 docusate sodium 100 mg capsule 100 mg PO DAILY 02/18/25 02/18/25 (Colace) fluoxetine 20 mg capsule 20 mg PO DAILY 02/18/25 02/18/25 fluticasone propionate 50 2 spray intranasal DAILY 02/18/25 02/18/25 mcg/actuation nasal spray,suspension hydrocortisone 2.5 % topical cream 1 appl HI Q6H PRN Hemorrhoids 02/18/25 02/18/25 with perineal applicator (Anusol-HC) loperamide 2 mg capsule 2 mg PO Q4H PRN Diarrhea 02/18/25 02/18/25 lubiprostone 24 mcg capsule 24 mcg PO BEDTIME 02/18/25 02/18/25 (Amitiza) magnesium hydroxide 400 mg/5 mL 30 ml PO DAILY PRN Constipation 02/18/25 02/18/25 oral suspension (Milk of Magnesia) naproxen 500 mg tablet 500 mg PO BID PRN Pain (Scale 02/18/25 02/18/25 Score 1-3) omeprazole 40 mg capsule,delayed 40 mg PO BID@0630,1630 02/18/25 02/18/25 release ondansetron HCl 4 mg tablet 4 mg PO Q6H PRN Nausea And Vomiting 02/18/25 02/18/25 prazosin 1 mg capsule 1 mg PO BEDTIME 02/18/25 02/18/25 risperidone 3 mg tablet 3 mg PO BEDTIME 02/18/25 02/18/25 sennosides 8.6 mg tablet (Senokot) 17.2 mg PO BEDTIME 02/18/25 02/18/25 simvastatin 20 mg tablet 20 mg PO BEDTIME 02/18/25 02/18/25 Previous Rx's ?Medication ?Instructions ?Recorded cyclobenzaprine 10 mg tablet 10 mg PO TID PRN muscle pain or 02/09/25 spasm #20 tabs Allergies Allergy/AdvReac Type Severity Reaction Status Date / Time No Known Allergies Allergy Verified 02/18/25 07:24 [No Known Allergies*] Review of Systems 2 Review of Systems: Constitutional: No Weight loss, No Fever, No Chills, No Night Sweats, No Fatigue, No Malaise ENT/Mouth: No Hearing loss, No Ear Pain, POS Nasal Congestion, No Sinus Pain, No Hoarseness, POS sore throat, No Rhinorrhea, No Swallowing Difficulty Eyes: No Eye Pain, No Swelling, No Redness, No Foreign Body, No Discharge, No Vision Changes Cardiovascular: No Chest Pain, POS SOB, POS Dyspnea on Exertion, No Orthopnea, No Edema, No Palpitations Respiratory: No Cough, No Sputum, No Wheezing, No Smoke Exposure, Gastrointestinal: No Nausea, No Vomiting, No Diarrhea, POS Constipation, POS mild Abdominal pain, No Hematochezia, No Melena Genitourinary: No irregular bleeding, POS Dysuria, No Urinary Frequency, No Hematuria, No Urinary Incontinence/retention, No Urgency, No Flank Pain, No Urinary Flow Changes, No Hesitancy Musculoskeletal: No joint pain, No Myalgias, No Joint Swelling Skin: No Skin Lesions, No rash Neuro: No Weakness, No Numbness, No Paresthesias, No Loss of Consciousness, No Dizziness, No Headache Psych: No Anxiety/Panic, No Depression, No SI/HI/AH/VH, No Social Issues, Heme/Lymph: No Bruising, No Bleeding,No Lymphadenopathy Endocrine: No Polyuria, No Polydipsia, No Temperature Intolerance Yes all other systems are reviewed and are negative [facility] Past Medical History Attestation statement: The following information was validated with the patient. Source: old records reviewed Social History Social History Smoked in Last 30 Days: No Use of substances other than those prescribed or required for medical reasons: No Advance Directives: No Advance Directives Information Provided: Yes Do you have a plan to hurt others: No Plan Patient : No Physical Exam 2 Vital Signs: Vital Signs: Last Vital Signs Temp 98.9 F 02/19/25 10:49 Pulse 112 H 02/19/25 10:49 Resp 14 02/19/25 10:49 BP 110/61 02/19/25 10:49 Pulse Ox 97 02/19/25 10:49 O2 Del Method Room Air 02/19/25 10:49 BMI result Body Mass Index 24.9 Appearance: Alert. Oriented X3. No acute distress. Eyes: Pupils equal, round and reactive to light. ENT: Pharynx normal. Neck: Normal inspection. Neck supple. CVS: Tachycardic heart rate and normal rhythm. Pulses normal. Respiratory: No respiratory distress. Breath sounds normal. Lungs are clear to auscultation bilaterally, no wheezes, rales, or rhonchi. Abdomen: Soft and mildly tender in epigastric region. +BS x4 Skin: Skin warm and dry. Normal skin color. Normal skin turgor. No rashes. Extremities: No lower extremity edema. Neuro: Oriented X 3. No motor deficit. No sensory deficit. CN II-XII intact. Course Reevaluation(s) Reevaluation #1: Patient's overall workup today was reassuring. Walking O2 stat maintained, she was no shortness a breath, lungs are clear to auscultation bilaterally. I discussed overall workup with patient, she was crying. I asked if there is anything I can get for her, and she states that she was feeling very depressed and she was thoughts of killing herself by taking pills. She states that she has had these thoughts for many years however has worsened over the last several days. She is coming from a senior living. Will put in care team consult for suicidal ideation. Time: 11:27 Reevaluation #2: Patient was seen by the care team, patient will be made a bed search. She will be placed in physician observation. Time: 14:56 Reevaluation #3: Time: 07:21 Date: 02/19/25 Provider: Joann Wang, DO Patient in physician observation for psychiatric evaluation.? No acute events reported overnight. No current complaints. VS stable.? pending IPBS. Will continue to monitor. Additional Reevaluation(s): Time: 13:06 Date: 02/19/25 Provider: Joann Wang DO Physician observation ended at 107pm. Patient to be admitted as inpatient to psychiatry. Medications Administered Generic Name Dose Route Start Last Admin Trade Name Freq PRN Reason Stop Dose Admin Atorvastatin Calcium 10 mg 02/19/25 09:00 02/19/25 08:17 Atorvastatin Calcium 10 Mg Tablet PO 10 mg DAILY SYMONE Administration Benztropine Mesylate 0.5 mg 02/19/25 09:00 02/19/25 08:17 Benztropine Mesylate 0.5 Mg Tablet PO 0.5 mg BID SYMONE Administration Fluoxetine HCl 20 mg 02/19/25 09:00 02/19/25 08:17 Fluoxetine Hcl 20 Mg Capsule PO 20 mg DAILY SYMONE Administration Prazosin HCl 1 mg 02/18/25 21:00 02/18/25 21:51 Prazosin Hcl 1 Mg Capsule PO 1 mg BEDTIME SYMONE Administration Protocol Risperidone 3 mg 02/18/25 21:00 02/18/25 21:53 Risperidone 3 Mg Tablet PO 3 mg BEDTIME SYMONE Administration Senna 17.2 mg 02/18/25 22:00 02/18/25 23:42 Sennosides 8.6 Mg Tablet PO Not Given BEDTIME SYMONE Medical Decision Making Medical Decision Making MDM Narrative: 54 year-old female with PMHx of Parkinson's with dyskinesia, metabolic encephalopathy, constipation, ulcerative colitis, GERD, IBS, 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 On arrival, patient is well-appearing appears to be under no acute distress. Lungs are clear to auscultation bilaterally. She is speaking in full sentences. She states SOB started this morning while on a walk and is associated with nasal congestion, sore throat, and some mild abdominal discomfort which started approximately 2 days ago. She is also endorsing mild dysuria. She states she cannot remember when her last bowel movement was or if she is passing flatus. She denies chest pain, palpitations, fever, cough, chills, nausea, vomiting. Patient was seen 2 days ago (02/16) in the [facility] ED due to shortness of breath and some mild abdominal pain. She states her symptoms feel different from her last presentation as her SOB has worsened in severity. During her last presentation to the ED Chest X-ray revealed small hiatal hernia without infiltrates or consolidations. EKG and trop unremarkable. She received an enema and had a large BM with improvement of abdominal pain. She states she cannot remember when her last bowel movement was or if she is passing flatus. She denies chest pain, palpitations, fever, cough, chills, nausea, vomiting. Patients vital signs reveal tachycardia of 115 BPM. EKG shows incomplete right bundle branch block without T wave abnormalities or ST elevations/Depression no concerns for ischemia. Will order labs with troponin, lipase, Covid/Flu/RSV/strep swab and D-Dimer to rule out PE. Current PERC score is 2 due to age being >50 and heart rate > 100BPM. Differential Diagnosis Differential Diagnoses: The differential diagnosis associated with the presentation includes Viral illness, Strep, constipation, UTI, gastritis, pulmonary embolism Admission/Observation Consideration of admission/observation: Escalation of care including admission/observation considered Lab Data MDM Lab Attestation statement: I reviewed the patient's lab results. Patient with no leukocytosis, stable H&H, chemistry with no significant electrolyte derangement, negative troponin, urine does not appear active. Negative U tox, negative viral swabs 02/18/25 08:54 02/18/25 08:54 Labs: Lab Results 02/18/25 02/18/25 Range/Units 08:54 10:27 WBC 6.9 (4.8-10.8) X10*3/uL RBC 4.29 (4.20-5.50) X10*6/uL Hgb 12.0 (12.0-16.0) g/dl Hct 37.0 (37.0-47.0) % MCV 86.2 (80.0-98.0) fL MCH 28.0 (27.0-33.0) pg MCHC 32.4 (31.0-35.0) g/dl RDW 15.8 (11.0-16.0) % Plt Count 259 (160-400) X10*3/uL MPV 10.1 (9.4-12.3) fL Immature Gran % (Auto) 0.6 H (0.0-0.4) % Neut % (Auto) 70.8 (45-73) % Lymph % (Auto) 22.0 (20-40) % [place] % (Auto) 5.1 (2-11) % Eos % (Auto) 1.2 (0-4) % Baso % (Auto) 0.3 (0-2) % Lymph # (Auto) 1.5 (1.2-4.9) X10*3/uL [place] # (Auto) 0.4 (0.1-1.2) X10*3/uL Eos # (Auto) 0.1 (0.0-0.4) X10*3/uL Baso # (Auto) 0.0 (0.0-0.2) X10*3/uL Abs Immat Gran (auto) 0.04 H (0.00-0.03) X10*3/uL Absolute Neuts (auto) 4.9 (2.0-8.3) x10*3/uL Absolute Nucleated RBC 0.000 (0.0-0.012) X10*3/uL Nucleated RBC % (auto) 0.0 (0.0-0.2) /100WBC D-Dimer High Sensitivty < 150 NG/ML Sodium 141 (135-145) mmol/L Potassium 4.2 (3.3-5.1) mmol/L Chloride 109 H (96-108) mmol/L Carbon Dioxide 27 (22-29) mmol/L Anion Gap 9 L (12-20) BUN 22 H (9-16) mg/dL Creatinine 0.84 (0.5-1.4) mg/dL Estim Creat Clear Calc 70.8 Estimated GFR > 60 Random Glucose 100 (60-115) mg/dL Calcium 9.1 (8.4-10.2) mg/dL Magnesium 2.3 (1.6-2.6) mg/dL Total Bilirubin 0.5 (0.0-1.0) mg/dL AST 19 (5-31) U/L ALT 17 (0-31) U/L Alkaline Phosphatase 75 (39-117) U/L Troponin I High Sens < 2.7 (<3.5-17.0) ng/L B-Natriuretic Peptide < 10 (<100) pg/mL Total Protein 6.7 (6.5-8.0) g/dL Albumin 4.0 (3.5-5.0) g/dL Lipase 13 (8-78) U/L Urine Color Yellow Urine Appearance Clear Urine pH 8.0 (5.0-9.0) Ur Specific [place] 1.020 (1.005-1.025) Urine Protein Trace (Neg-Trace) mg/dL Urine Glucose (UA) Negative (Negative) mg/dL Urine Ketones Trace (Negative) mg/dL Urine Blood Negative (Negative) Urine Nitrite Negative (Negative) Ur Leukocyte Esterase Small (1+) H (Negative) Urine RBC 0-2 (0-2) /HPF Urine WBC 0-5 (0-5) /HPF Ur Squamous Epith Cells 0-2 (0-2) /HPF Urine Bacteria None Seen (None Seen) Hyaline Casts 0-2 (0-2) /LPF Urine Opiates Screen Not Detected (Not Detect) Ur Buprenorphine Scrn Not Detected (Not Detect) ng/mL Ur Oxycodone Screen Not Detected (Not Detect) ng/mL Urine Methadone Screen Not Detected (Not Detect) ng/mL Urine Fentanyl Screen Not Detected (Not Detect) Ur Barbiturates Screen Not Detected (Not Detect) Ur Phencyclidine Scrn Not Detected (Not Detect) Ur Amphetamines Screen Not Detected (Not Detect) U Benzodiazepines Scrn Not Detected (Not Detect) Urine Cocaine Screen Not Detected (Not Detect) U Marijuana (THC) Screen Not Detected (Not Detect) Influenza Type A (PCR) NEGATIVE (Negative) Influenza Type B (PCR) NEGATIVE (Negative) RSV RNA Qual (PCR) NEGATIVE (Negative) SARS-CoV-2 RNA (RT-PCR) NEGATIVE (Negative) Independent Interpretation I performed an independent interpretation of an: EKG Interpretation: Rate: 95BPM HI interval: 136 QT/QTc: 342/429 Normal sinus rythm with incomplete bundle branch block, no T wave abnormalities or ST elevations/depression. When compared to EKG performed on February 16, 2025, no significant change was found. Radiology Impression Discussion of test interpretation with radiology: I have reviewed the radiologist's reading. Radiologist Impression: FINDINGS: Pulmonary reticular pattern. Blunting of the posterior costophrenic angles. Moderate to large size hiatal hernia. No pneumothorax. Cardiomediastinal silhouette size is normal. Multilevel thoracic and upper lumbar spondylosis. XR/XR chest 2V IMPRESSION: Mild interstitial edema and bilateral pleural effusions, small to moderate volume, similar to slightly worsened since prior exam. External Record Review External record reviewed: Inpatient record Chronic Conditions Patient?s care impacted by: Other (parkinsons, constipation, ulcerative colitis, GERD, IBS) Discharge Plan Discharge Clinical Impression: Anxiety, Suicide ideation Patient Disposition: Admitted As Inpatient Interventions: [place]-Suicide Risk Severity Scale Last Done: 02/18/25 21:12
[2025-02-18 08:59] LABS: MANUAL DIFF FLAG NO
[2025-02-18 09:11] LABS: Basophils Percent Auto 0.3 % (0-2); Eosinophils Absolute Auto 0.1 X10*3/uL (0.0-0.4); Eosinophils Percent Auto 1.2 % (0-4); Imm Gran Abs Auto 0.04 X10*3/uL (0.00-0.03); Imm Gran Pct Auto 0.6 % (0.0-0.4); Lymphocytes Absolute Auto 1.5 X10*3/uL (1.2-4.9); Mean Corpuscular HGB Conc 32.4 g/dl (31.0-35.0); Mean Corpuscular Volume 86.2 fL (80.0-98.0); Mean Platelet Volume 10.1 fL (9.4-12.3); Monocytes Absolute Auto 0.4 X10*3/uL (0.1-1.2); Monocytes Percent Auto 5.1 % (2-11); Neutrophils Absolute Auto 4.9 x10*3/uL (2.0-8.3); Neutrophils Percent Auto 70.8 % (45-73); Platelet Count 259 X10*3/uL (160-400); Red Blood Count 4.29 X10*6/uL (4.20-5.50); Red Cell Distribution Width 15.8 % (11.0-16.0); White Blood Count 6.9 X10*3/uL (4.8-10.8)
[2025-02-18 09:13] LABS: D Dimer High Sensitivity < 150 NG/ML
[2025-02-18 09:19] LABS: Alanine Aminotransferase 17 U/L (0-31); Alkaline Phosphatase 75 U/L (39-117); Anion Gap 9 (12-20); Aspartate Amino Transferase 19 U/L (5-31); Bilirubin Total 0.5 mg/dL (0.0-1.0); Blood Urea Nitrogen 22 mg/dL (9-16); Calcium 9.1 mg/dL (8.4-10.2); Carbon Dioxide 27 mmol/L (22-29); Chloride 109 mmol/L (96-108); Creatinine Clr Calc Pharmacy 70.8; Estimated Glomerular Filt Rate > 60; Glucose Random 100 mg/dL (60-115); Lipase 13 U/L (8-78); Magnesium 2.3 mg/dL (1.6-2.6); Potassium 4.2 mmol/L (3.3-5.1); Sodium 141 mmol/L (135-145); Total Protein 6.7 g/dL (6.5-8.0)
[2025-02-18 09:26] LABS: Troponin-I High Sensitivity < 2.7 ng/L (<3.5-17.0)
[2025-02-18 09:42] LABS: Influenza A PCR NEGATIVE (Negative); Influenza B PCR NEGATIVE (Negative); Resp Syncy Virus RNA Qual PCR NEGATIVE (Negative); SARS COV2 PCR INHOUSE NEGATIVE (Negative)
[2025-02-18 10:37] LABS: Appearance Urine Clear; Color Urine Yellow; Glucose Urine UA Negative (Negative); Leukocyte Esterase Urine Small (1+) (Negative); Nitrite Urine Negative (Negative); UMIC TRIGGER UACC YES; Urine Blood Negative (Negative); Urine Ketones Trace mg/dL (Negative); Urine Protein Trace mg/dL (Neg-Trace)
[2025-02-18 10:48] LABS: Bacteria Urine None Seen (None Seen); Hyaline Casts Urine 0-2 /LPF (0-2); RBC Urine 0-2 /HPF (0-2); Squamous Epithelial Cell Urine 0-2 /HPF (0-2); UACC Culture Trigger YES; WBC Urine 0-5 /HPF (0-5)
--- NOTE | 2025-02-18 11:10 | PC.NURSE ---
Report received. Taken over care at this time.
[2025-02-18 11:20] LABS: B Type Natriuretic Peptide < 10 pg/mL (<100)
--- NOTE | 2025-02-18 11:55 | PC.NURSE ---
Pt. informed Millie QUACH about being depressed and having SI x couple of days. Pt. pending CARE team and changing over. Hortencia prince RN made aware.
--- NOTE | 2025-02-18 11:58 | MHC.EDTECH ---
Patient was changed into crisis attire,security at bedside, belongings list completed and all belongings locked in the ronni port shelf #3
--- NOTE | 2025-02-18 12:07 | PC.NURSE ---
Report given to LAKISHA Mckeon.
[2025-02-18 17:44] LABS: Amphetamine Screen Urine Not Detected (Not Detect); Barbiturates, Urine Not Detected (Not Detect); Benzodiazepines Screen Urine Not Detected (Not Detect); Buprenorphine Scr Not Detected (Not Detect); Cannabinoid Screen Urine Not Detected (Not Detect); Cocaine Screen Urine Not Detected (Not Detect); Fentanyl, urine Not Detected (Not Detect); Methadone Screen, Urine Not Detected (Not Detect); Opiate Screen Urine Not Detected (Not Detect); Oxycodone Screen Urine Not Detected (Not Detect); Phencyclidine Screen Urine Not Detected (Not Detect)
--- NOTE | 2025-02-18 19:54 | PC.NURSE ---
patient appears to remain at rest presently respiorations are even and unlabored patient appears in no distress.
--- NOTE | 2025-02-18 21:46 | PHA.MEDREC ---
Addendum entered by Lulú Jenkins RP 02/18/25 21:50: Reviewed by [facility] Original Note: Pharmacy Consult ? Medication Reconciliation Pharmacy has reviewed the medication reconciliation done by nursing. Called [facility] to confirm med list. Updated med list with corrections and add some medications that where no added.
[2025-02-18] MEDS: Prazosin HCL 1 MG CAPSULE PO (21:51)
[2025-02-18] MEDS: risperiDONE 3 MG TABLET PO (21:53)
[2025-02-19] MEDS: FLUoxetine HCl 20 MG CAPSULE PO (08:17)
[2025-02-19] MEDS: Benztropine Mesylate 0.5 MG TABLET PO ×2 (08:17→20:32)
[2025-02-19] MEDS: Atorvastatin Calcium 10 MG TABLET PO (08:17)
[2025-02-19 10:49] VITALS: BP 110/61; PULSE 112; RESP 14; TEMP 37.2; O2SAT 97
[2025-02-19 13:30] VITALS: BP 119/73; PULSE 103; RESP 16; TEMP 36.7; O2SAT 98
[2025-02-19 14:31] VITALS: BMI 24.5
--- NOTE | 2025-02-19 14:46 | PC.ADMIT ---
Mariposa is 54yr old woman who arrived at 1315 via wheel chair from [facility]. Skin/safety checks performed, vitals obtained, admission paperwork completed and pt oriented to the unit. CV accepted and pt placed on 15min checks. Mariposa reports she fell at home a few weeks ago and couldn't get up, and denies any injuries were sustained. She was transported to the hospital via EMS and was admitted, for maybe a day . Pt then reports she was sent to a rehab facility and then to assisted living where she currently resides. Pt denies any medical hx other than acid reflux and pain all over which she states she doesn't take any medications for. Pt states she called 911 from her assisted living facility because she was having difficulty breathing. She also states she has experienced depression and anxiety for several weeks that has increasingly worsened since residing at the assisted living facility and states she feels she would overdose on all her medication Because I'm sick of living in pain . Pt denies ETOH or drug use, tox screen negative. During admission she reports continued depression and anxiety w/ thoughts of SI but reports she can come to staff if thoughts are overwhelming. She remains on 15min checks at this time
[2025-02-19] MEDS: Omeprazole 40 MG CAPSULE.DR PO (18:00)
[2025-02-19] MEDS: Sennosides 8.6 MG TABLET 17.2 MG PO (20:32)
[2025-02-19] MEDS: risperiDONE 3 MG TABLET PO (20:32)
[2025-02-19 21:07] VITALS: BP 92/56; PULSE 99; RESP 16; TEMP 37.1; O2SAT 95
[2025-02-20] MEDS: Omeprazole 40 MG CAPSULE.DR PO ×2 (06:13→16:56)
[2025-02-20 08:11] VITALS: BP 109/68; PULSE 92; RESP 16; TEMP 36.7; O2SAT 98
[2025-02-20 08:28] LABS: Cholesterol 172 mg/dL (<200); HDL Cholesterol 56 mg/dL (>40); LDL Cholesterol Calculated 100 mg/dL (<100); Magnesium 2.3 mg/dL (1.6-2.6); Triglycerides 83 mg/dL (<150)
[2025-02-20 08:44] LABS: Estimated Average Glucose 117 mg/dL; Hemoglobin A1C 129.5572 umol/L; Hemoglobin A1c % 5.7 % (<6.0)
[2025-02-20 08:59] LABS: Vitamin B12 691 pg/mL (200-900)
[2025-02-20] MEDS: Atorvastatin Calcium 10 MG TABLET PO (09:19)
[2025-02-20] MEDS: FLUoxetine HCl 20 MG CAPSULE PO (09:19)
[2025-02-20] MEDS: Benztropine Mesylate 0.5 MG TABLET PO ×2 (09:19→21:38)
--- NOTE | 2025-02-20 09:29 | P.HPPS_ITS ---
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 Patient called 911 saying she was short of breath but here in the ED she talked about wanting to . Patient reports that about a month ago, she stopped going to her therapist due to lack of insurance; she says she does not take medications regularly, runs out of them and does not get refills and has been off of her medications for about 2 months. She says that she was doing overall good enough and that depression would come and go. They however she has been feeling more down, tired of always being in pain. Patient explained contributory factors being chronic pain which says seems to have gotten worse recently (patient names almost every part of her body as painful: headaches, joints, stomach, legs, feet...each toe). Patient reports up until a week ago, she was living on her own in her own apartment but this past week she moved into a prison, saying she needed more support. Over these past few days she became more depressed. Once in the emergency room she says she started to think about ending it... Taking a bunch of pills... Patient explains concretely if I were home I would have done it because I had access to the pills... Here I do not have access to the pills. She reports Hx of SI but has never actually tried to; says usually the feeling passes; reports extreme anxiety since childhood; seems to endorse depressive episodes. -denies AVH or paranoid ideations; she does not know why she is prescribed risperidone -denies drug or alcohol use pt seen at 12:00 on 02/20 Past Psychiatric History: Denies past psychiatric admissions Medical Evaluation Reviewed: Yes She states SOB started this morning while on a walk and is associated with nasal congestion, sore throat, and some mild abdominal discomfort which started approximately 2 days ago. She is also endorsing mild dysuria. Patient was seen 2 days ago (02/16) in the [facility] ED due to shortness of breath and some mild abdominal pain. She states her symptoms feel different from her last presentation as her SOB has worsened in severity. During her last presentation to the ED Chest X-ray revealed small hiatal hernia without infiltrates or consolidations. She received an enema and had a large BM. She states she cannot remember when her last bowel movement was or if she is passing flatus. [facility] Medical History (Updated 02/21/25 @ 17:09 by Alvaro López MD) MDD (major depressive disorder), recurrent severe, without psychosis Family History: Deferred Social History: Was living on her own in her own apartment This past week moved into a prison for extra support Substance History: Denies Trauma History: Deferred Diagnostics Vital Signs (24Hr): Vital Signs - 24 hr 02/19/25 10:49 02/19/25 13:30 02/19/25 21:07 Temperature 98.9 F 98.0 F 98.8 F Pulse Rate 112 H 103 H 99 Respiratory Rate 14 16 16 Blood Pressure 110/61 119/73 92/56 L Pulse Oximetry 97 98 95 Oxygen Delivery Method Room Air Room Air Room Air 02/20/25 08:11 Temperature 98.1 F Pulse Rate 92 Respiratory Rate 16 Blood Pressure 109/68 Pulse Oximetry 98 Oxygen Delivery Method Room Air BMI result Body Mass Index 24.5 Labs 02/18/25 08:54 02/18/25 08:54 Labs: Laboratory Results - last 48 hr 02/18/25 02/18/25 02/20/25 08:54 10:27 07:42 Estimat Average Glucose 117 Hemoglobin A1c % 5.7 Magnesium 2.3 B-Natriuretic Peptide < 10 Triglycerides 83 Cholesterol 172 LDL Cholesterol, Calc 100 H HDL Cholesterol 56 Vitamin B12 691 Folate 15.0 TSH 0.60 Free T4 1.10 Urine Color Yellow Urine Appearance Clear Urine pH 8.0 Ur Specific [place] 1.020 Urine Protein Trace Urine Glucose (UA) Negative Urine Ketones Trace Urine Blood Negative Urine Nitrite Negative Ur Leukocyte Esterase Small (1+) H Urine RBC 0-2 Urine WBC 0-5 Ur Squamous Epith Cells 0-2 Urine Bacteria None Seen Hyaline Casts 0-2 Urine Opiates Screen Not Detected Ur Buprenorphine Scrn Not Detected Ur Oxycodone Screen Not Detected Urine Methadone Screen Not Detected Urine Fentanyl Screen Not Detected Ur Barbiturates Screen Not Detected Ur Phencyclidine Scrn Not Detected Ur Amphetamines Screen Not Detected U Benzodiazepines Scrn Not Detected Urine Cocaine Screen Not Detected U Marijuana (THC) Screen Not Detected Influenza Type A (PCR) NEGATIVE Influenza Type B (PCR) NEGATIVE RSV RNA Qual (PCR) NEGATIVE SARS-CoV-2 RNA (RT-PCR) NEGATIVE Imaging Radiology Impressions: ITS Impressions Chest X-Ray 02/18/25 09:58 IMPRESSION: Mild interstitial edema and bilateral pleural effusions, small to moderate volume, similar to slightly worsened since prior exam. Electronically signed by: Hamlet Stephens MD 02/18/2025 10:42 AM EDT RP Meds/Allergies Meds Home Medications ?Medication ?Instructions ?Recorded ?Confirmed ?Type acetaminophen 325 mg capsule 650 mg PO Q4H PRN Fever Or Pain 02/18/25 02/18/25 History benztropine 0.5 mg tablet 0.5 mg PO BID 02/18/25 02/18/25 History docusate sodium 100 mg capsule 100 mg PO DAILY 02/18/25 02/18/25 History (Colace) fluoxetine 20 mg capsule 20 mg PO DAILY 02/18/25 02/18/25 History fluticasone propionate 50 2 spray intranasal DAILY 02/18/25 02/18/25 History mcg/actuation nasal spray,suspension hydrocortisone 2.5 % topical cream 1 appl [place] Q6H PRN Hemorrhoids 02/18/25 02/18/25 History with perineal applicator (Anusol-HC) loperamide 2 mg capsule 2 mg PO Q4H PRN Diarrhea 02/18/25 02/18/25 History lubiprostone 24 mcg capsule 24 mcg PO BEDTIME 02/18/25 02/18/25 History (Amitiza) magnesium hydroxide 400 mg/5 mL 30 ml PO DAILY PRN Constipation 02/18/25 02/18/25 History oral suspension (Milk of Magnesia) naproxen 500 mg tablet 500 mg PO BID PRN Pain (Scale 02/18/25 02/18/25 History Score 1-3) omeprazole 40 mg capsule,delayed 40 mg PO BID@0630,1630 02/18/25 02/18/25 History release ondansetron HCl 4 mg tablet 4 mg PO Q6H PRN Nausea And Vomiting 02/18/25 02/18/25 History prazosin 1 mg capsule 1 mg PO BEDTIME 02/18/25 02/18/25 History risperidone 3 mg tablet 3 mg PO BEDTIME 02/18/25 02/18/25 History sennosides 8.6 mg tablet (Senokot) 17.2 mg PO BEDTIME 02/18/25 02/18/25 History simvastatin 20 mg tablet 20 mg PO BEDTIME 02/18/25 02/18/25 History Allergies Allergies Allergy/AdvReac Type Severity Reaction Status Date / Time No Known Allergies Allergy Verified 02/18/25 07:24 [No Known Allergies*] Mental Status Exam Mental Status Exam Narrative: Pt is alert and oriented; behavior is cooperative, calm; patient is not in distress; dressed in casual attire with unkempt hair, glasses, appears older than chronological age, adequate hygiene; mood is described as depressed and affect blunted; eye contact a little avoidant; Speech is initially a little latent but then becomes quite talkative, even verbose; otherwise normal rate, volume and prosody; some psychomotor retardation present; thought process is goal directed, concrete; Thought content is on dealing with pain; no delusional ideations expressed; currently with SI; no HI. Denies AVH and there is no evidence of perceptual disturbance. 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 Patient called 911 saying she was short of breath but here in the ED she talked about wanting to . Patient reports that about a month ago, she stopped going to her therapist due to lack of insurance; she says she does not take medications regularly, runs out of them and does not get refills and has been off of her medications for about 2 months. She says that she was doing overall good enough and that depression would come and go. They however she has been feeling more down, tired of always being in pain. Patient explained contributory factors being chronic pain which says seems to have gotten worse recently (patient names almost every part of her body as painful: headaches, joints, stomach, legs, feet...each toe). Patient reports up until a week ago, she was living on her own in her own apartment but this past week she moved into a prison, saying she needed more support. Over these past few days she became more depressed. Once in the emergency room she says she started to think about ending it... Taking a bunch of pills... Patient explains concretely if I were home I would have done it because I had access to the pills... Here I do not have access to the pills. She reports Hx of SI but has never actually tried to; says usually the feeling passes; reports extreme anxiety since childhood; seems to endorse depressive episodes. -denies AVH or paranoid ideations; she does not know why she is prescribed risperidone -denies drug or alcohol use Formulation/clinical reasoning: Endorses depression and anxiety; has been off her medications which is likely contributory as well as chronic pain though not sure the cause; she says nothing has ever help with her pain before however agrees to start and try gabapentin. Patient with blunted affect and concrete; will seek to rule out ASD. Need collateral Plan: CV Q 15 minute checks Restarted fluoxetine ?20 mg daily Adding famotidine 20 mg b.i.d.; patient says she has chronic GERD Restarted risperidone 3 mg q.h.s. Restarted prazosin 1 mg q.h.s. Restarted Cogentin 0.5 mg b.i.d. Starting gabapentin 100 mg t.i.d. for chronic pain Will order H pylori antigen stool test; patient says she has had intractable GERD for a long time; has never been tested for H pylori Patient educated on: diagnosis, medication risk/benefits and medical condition Informed Consent: understands, does not understand and further education needed Reason for continued inpatient stay Substantial Risk for: rapid decompensation Statement Statement: I have reviewed the history and physical and performed a pertinent examination on my patient. No changes have occurred unless specified. If the History and Physical was not performed prior to admission, the Hospitalist's service will be consulted for completing the admission physical. Time Spent With Patient Time: Total time managing care of this patient today ____ minutes.
[2025-02-20 20:00] VITALS: BP 109/72; BP 98/62; PULSE 118; TEMP 36.7; O2SAT 95
[2025-02-20] MEDS: Sennosides 8.6 MG TABLET 17.2 MG PO (21:34)
[2025-02-20] MEDS: Gabapentin 100 MG CAPSULE PO (21:35)
[2025-02-20] MEDS: Famotidine 20 MG TABLET PO (21:35)
[2025-02-20 21:36] VITALS: BP 98/62
[2025-02-20] MEDS: Prazosin HCL 1 MG CAPSULE PO (21:36)
[2025-02-20] MEDS: traZODone HCL 50 MG TABLET PO (21:37)
[2025-02-20] MEDS: risperiDONE 3 MG TABLET PO (21:38)
[2025-02-21 08:00] VITALS: BP 113/63; PULSE 95; RESP 16; TEMP 36.8; O2SAT 96
[2025-02-21] MEDS: Gabapentin 100 MG CAPSULE PO (08:26)
[2025-02-21] MEDS: Atorvastatin Calcium 10 MG TABLET PO (08:26)
[2025-02-21] MEDS: FLUoxetine HCl 20 MG CAPSULE PO (08:26)
[2025-02-21] MEDS: Omeprazole 40 MG CAPSULE.DR PO ×2 (08:26→15:52)
[2025-02-21] MEDS: Famotidine 20 MG TABLET PO ×2 (08:26→20:32)
[2025-02-21] MEDS: Benztropine Mesylate 0.5 MG TABLET PO ×2 (08:26→20:31)
[2025-02-21] MEDS: Fluticasone Propionate Nasal 16 GM SPRAY 2 SPRAY NOSTRIL-B (08:27)
--- NOTE | 2025-02-21 13:49 | HO.PSYCHPN ---
Subjective Subjective Date of Service: 02/21/25 Reason For Visit: Depression Interim History: met with patient; discussed with team still feeling down still thinking of suicide but hopeful not to do it agrees to increase prozac to 40mg also agrees to increased Gabapentin 300mg TID has not had a BM yet; says chronically has trouble pooping and has been constipated for years -agrees to Mirrilax Mental Status Exam Mental Status Exam Narrative: Pt is alert and oriented; behavior is cooperative, calm; patient is not in distress; dressed in casual attire with unkempt hair, glasses, appears older than chronological age, adequate hygiene; mood is described as down and affect blunted; eye contact a little avoidant; Speech is initially a little latent but then becomes quite talkative, even verbose; otherwise normal rate, volume and prosody; some psychomotor retardation present; thought process is goal directed, concrete; Thought content is on dealing with pain; no delusional ideations expressed; currently with SI; no HI. Denies AVH and there is no evidence of perceptual disturbance. Patients insight and judgment impaired Diagnostics Vital Signs (24Hr): Vital Signs - 24 hr 02/20/25 20:00 02/20/25 20:00 02/20/25 21:36 Temperature 98.0 F Pulse Rate 118 H Respiratory Rate Blood Pressure 98/62 109/72 98/62 Pulse Oximetry 95 Oxygen Delivery Method Room Air 02/21/25 08:00 Temperature 98.3 F Pulse Rate 95 Respiratory Rate 16 Blood Pressure 113/63 Pulse Oximetry 96 Oxygen Delivery Method Room Air BMI result Body Mass Index 24.5 Labs 02/18/25 08:54 02/18/25 08:54 Labs: Laboratory Results - last 48 hr 02/20/25 07:42 Estimat Average Glucose 117 Hemoglobin A1c % 5.7 Magnesium 2.3 Triglycerides 83 Cholesterol 172 LDL Cholesterol, Calc 100 H HDL Cholesterol 56 Vitamin B12 691 Folate 15.0 TSH 0.60 Free T4 1.10 Imaging Radiology Impressions: ITS Impressions Chest X-Ray 02/18/25 09:58 IMPRESSION: Mild interstitial edema and bilateral pleural effusions, small to moderate volume, similar to slightly worsened since prior exam. Electronically signed by: Hamlet Stephens MD 02/18/2025 10:42 AM EDT Medications Medications Current Medications Acetaminophen (Acetaminophen 325 Mg Tablet) 650 mg PO Q6H PRN PRN Reason: Headache/Pain, Scale 1-10 Al Hydroxide/Mg Hydroxide (Magnesium Hydrox/Alum Hydrox 30 Ml Oral.Susp) 30 ml PO Q6H PRN PRN Reason: Heartburn/Nausea Atorvastatin Calcium (Atorvastatin Calcium 10 Mg Tablet) 10 mg PO DAILY [facility] Last Admin: 02/21/25 08:26 Dose: 10 mg Benztropine Mesylate (Benztropine Mesylate 0.5 Mg Tablet) 0.5 mg PO BID [facility] Last Admin: 02/21/25 08:26 Dose: 0.5 mg Cyclobenzaprine HCl (Cyclobenzaprine Hcl 10 Mg Tablet) 10 mg PO TID PRN PRN Reason: muscle pain or spasm Docusate Sodium (Docusate Sodium 100 Mg Capsule) 100 mg PO DAILY PRN PRN Reason: constipation Famotidine (Famotidine 20 Mg Tablet) 20 mg PO BID [facility] Last Admin: 02/21/25 08:26 Dose: 20 mg Fluoxetine HCl (Fluoxetine Hcl 20 Mg Capsule) 20 mg PO DAILY [facility] Last Admin: 02/21/25 08:26 Dose: 20 mg Fluticasone Propionate (Fluticasone Propionate Nasal 16 Gm [place]) 2 spray NOSTRIL-B DAILY [facility] Last Admin: 02/21/25 08:27 Dose: 2 spray Gabapentin (Gabapentin 100 Mg Capsule) 100 mg PO TID [facility] Last Admin: 02/21/25 08:26 Dose: 100 mg Hydrocortisone (Hydrocortisone 2.5 % Rectal Cr 30 Gm Tube) 1 appl [place] Q6H PRN PRN Reason: Hemorrhoids Hydroxyzine HCl (Hydroxyzine Hcl 25 Mg Tablet) 25 mg PO Q6H PRN PRN Reason: mild anxiety Magnesium Hydroxide (Milk Of Magnesia 30 Ml Oral.Susp) 30 ml PO DAILY PRN PRN Reason: Constipation Naproxen (Naproxen 500 Mg Tablet) 500 mg PO BID PRN PRN Reason: Pain (Scale Score 1-3) Nicotine Polacrilex (Nicotine Polacrilex 2 Mg Gum) 4 mg BUCCAL Q2H PRN PRN Reason: Nicotine Cravings Omeprazole (Omeprazole 40 Mg Capsule.Dr) 40 mg PO BID@0630,1630 [facility] Last Admin: 02/21/25 08:26 Dose: 40 mg Prazosin HCl (Prazosin Hcl 1 Mg Capsule) 1 mg PO BEDTIME [facility]; Protocol Last Admin: 02/20/25 21:36 Dose: 1 mg Risperidone (Risperidone 3 Mg Tablet) 3 mg PO BEDTIME SYMONE Last Admin: 02/20/25 21:38 Dose: 3 mg Senna (Sennosides 8.6 Mg Tablet) 17.2 mg PO BEDTIME SYMONE Last Admin: 02/20/25 21:34 Dose: 17.2 mg Trazodone HCl (Trazodone Hcl 50 Mg Tablet) 50 mg PO BEDTIME MRX1 PRN PRN Reason: Insomnia Last Admin: 02/20/25 21:37 Dose: 50 mg Allergies Allergies Allergy/AdvReac Type Severity Reaction Status Date / Time No Known Allergies Allergy Verified 02/18/25 07:24 [No Known Allergies*] Assessment & Plan Assessment & Plan (1) MDD (major depressive disorder), recurrent severe, without psychosis: Status: Acute Code(s): F33.2 - Major depressive disorder, recurrent severe without psychotic features (2) Anxiety: Status: Acute Code(s): F41.9 - Anxiety disorder, unspecified Plan 54 year-old female with PMHx of Parkinson's with dyskinesia, metabolic encephalopathy, constipation, ulcerative colitis, GERD, IBS, 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 Patient called 911 saying she was short of breath but here in the ED she talked about wanting to . Patient reports that about a month ago, she stopped going to her therapist due to lack of insurance; she says she does not take medications regularly, runs out of them and does not get refills and has been off of her medications for about 2 months. She says that she was doing overall good enough and that depression would come and go. They however she has been feeling more down, tired of always being in pain. Patient explained contributory factors being chronic pain which says seems to have gotten worse recently (patient names almost every part of her body as painful: headaches, joints, stomach, legs, feet...each toe). Patient reports up until a week ago, she was living on her own in her own apartment but this past week she moved into a [facility]dc, saying she needed more support. Over these past few days she became more depressed. Once in the emergency room she says she started to think about ending it... Taking a bunch of pills... Patient explains concretely if I were home I would have done it because I had access to the pills... Here I do not have access to the pills. She reports Hx of SI but has never actually tried to; says usually the feeling passes; reports extreme anxiety since childhood; seems to endorse depressive episodes. -denies AVH or paranoid ideations; she does not know why she is prescribed risperidone -denies drug or alcohol use Formulation/clinical reasoning: Endorses depression and anxiety; has been off her medications which is likely contributory as well as chronic pain though not sure the cause; she says nothing has ever help with her pain before however agrees to start and try gabapentin. Patient with blunted affect and concrete; will seek to rule out ASD. Need collateral Hospital course: 02/21 still feeling down; still thinking of suicide but hopeful not to do it agrees to increase prozac to 40mg; also agrees to increased Gabapentin 300mg TID has not had a BM yet; says chronically has trouble pooping and has been constipated for years -agrees to Mirrilax Plan: CV Q 15 minute checks increase to fluoxetine ?40 mg daily famotidine 20 mg b.i.d.; patient says she has chronic GERD risperidone 3 mg q.h.s. prazosin 1 mg q.h.s. Cogentin 0.5 mg b.i.d. Increase gabapentin 300 mg t.i.d. for chronic pain (reviewed risks/side-effects) Will order H pylori antigen stool test; patient says she has had intractable GERD for a long time; has never been tested for H pylori Patient educated on: diagnosis, medication risk/benefits and medical condition Informed Consent: understands and further education needed Reason for continued inpatient stay Substantial Risk for: rapid decompensation Time Spent With Patient Time: Total time managing care of this patient today ____ minutes.
[2025-02-21] MEDS: polyethylene glycoL 3350 17 GM POWD.PACK PO (15:51)
[2025-02-21] MEDS: Gabapentin 300 MG CAPSULE PO ×2 (15:52→20:31)
[2025-02-21 20:00] VITALS: BP 115/71; PULSE 93; RESP 16; TEMP 36.4; O2SAT 98
[2025-02-21 20:31] VITALS: BP 115/71
[2025-02-21] MEDS: traZODone HCL 50 MG TABLET PO (20:31)
[2025-02-21] MEDS: Prazosin HCL 1 MG CAPSULE PO (20:31)
[2025-02-21] MEDS: Sennosides 8.6 MG TABLET 17.2 MG PO (20:32)
[2025-02-21] MEDS: risperiDONE 3 MG TABLET PO (20:32)
[2025-02-22] MEDS: Omeprazole 40 MG CAPSULE.DR PO ×2 (06:50→16:38)
[2025-02-22 07:47] VITALS: BP 102/57; PULSE 78; TEMP 36.4; O2SAT 96
[2025-02-22] MEDS: Benztropine Mesylate 0.5 MG TABLET PO ×2 (09:01→20:40)
[2025-02-22] MEDS: Fluticasone Propionate Nasal 16 GM SPRAY 2 SPRAY NOSTRIL-B (09:01)
[2025-02-22] MEDS: Famotidine 20 MG TABLET PO ×2 (09:01→20:40)
[2025-02-22] MEDS: Gabapentin 300 MG CAPSULE PO ×3 (09:01→20:41)
[2025-02-22] MEDS: FLUoxetine HCl 20 MG CAPSULE 40 MG PO (09:01)
[2025-02-22] MEDS: Atorvastatin Calcium 10 MG TABLET PO (09:21)
--- NOTE | 2025-02-22 17:22 | P.PNPSI_ITS ---
Subjective Subjective Date of Service: 02/22/25 Reason For Visit: Depression Interim History: Met with patient; discussed with team Patient reports that she is still depressed and still feeling suicidal though she reports SI is waning. No bowel movement. No medication side effects and agrees to titration Mental Status Exam Mental Status Exam Narrative: Pt is alert and oriented; behavior is cooperative, calm; patient is not in distress; dressed in casual attire with unkempt hair, glasses, appears older than chronological age, adequate hygiene; mood is described as still depressed and affect blunted; eye contact a little avoidant; Speech is initially a little latent but then becomes quite talkative, even verbose; otherwise normal rate, volume and prosody; some psychomotor retardation present; thought process is goal directed, concrete; Thought content is on dealing with pain; no delusional ideations expressed; currently with SI; no HI. Denies AVH and there is no evidence of perceptual disturbance. Patients insight and judgment impaired Diagnostics Vital Signs (24Hr): Vital Signs - 24 hr 02/21/25 20:00 02/21/25 20:31 02/22/25 07:47 Temperature 97.6 F 97.6 F Pulse Rate 93 78 Respiratory Rate 16 Blood Pressure 115/71 115/71 102/57 L Pulse Oximetry 98 96 Oxygen Delivery Method Room Air Room Air BMI result Body Mass Index 24.5 Labs 02/18/25 08:54 02/18/25 08:54 Imaging Radiology Impressions: ITS Impressions Chest X-Ray 02/18/25 09:58 IMPRESSION: Mild interstitial edema and bilateral pleural effusions, small to moderate volume, similar to slightly worsened since prior exam. Electronically signed by: Hamlet Stephens MD 02/18/2025 10:42 AM EDT Medications Medications Current Medications Acetaminophen (Acetaminophen 325 Mg Tablet) 650 mg PO Q6H PRN PRN Reason: Headache/Pain, Scale 1-10 Al Hydroxide/Mg Hydroxide (Magnesium Hydrox/Alum Hydrox 30 Ml Oral.Susp) 30 ml PO Q6H PRN PRN Reason: Heartburn/Nausea Atorvastatin Calcium (Atorvastatin Calcium 10 Mg Tablet) 10 mg PO DAILY [facility] Last Admin: 02/22/25 09:21 Dose: 10 mg Benztropine Mesylate (Benztropine Mesylate 0.5 Mg Tablet) 0.5 mg PO BID [facility] Last Admin: 02/22/25 09:01 Dose: 0.5 mg Cyclobenzaprine HCl (Cyclobenzaprine Hcl 10 Mg Tablet) 10 mg PO TID PRN PRN Reason: muscle pain or spasm Docusate Sodium (Docusate Sodium 100 Mg Capsule) 100 mg PO DAILY PRN PRN Reason: constipation Famotidine (Famotidine 20 Mg Tablet) 20 mg PO BID [facility] Last Admin: 02/22/25 09:01 Dose: 20 mg Fluoxetine HCl (Fluoxetine Hcl 20 Mg Capsule) 40 mg PO DAILY [facility] Last Admin: 02/22/25 09:01 Dose: 40 mg Fluticasone Propionate (Fluticasone Propionate Nasal 16 Gm [place]) 2 spray NOSTRIL-B DAILY [facility] Last Admin: 02/22/25 09:01 Dose: 2 spray Gabapentin (Gabapentin 300 Mg Capsule) 300 mg PO TID [facility] Last Admin: 02/22/25 15:31 Dose: 300 mg Hydrocortisone (Hydrocortisone 2.5 % Rectal Cr 30 Gm Tube) 1 appl [place] Q6H PRN PRN Reason: Hemorrhoids Hydroxyzine HCl (Hydroxyzine Hcl 25 Mg Tablet) 25 mg PO Q6H PRN PRN Reason: mild anxiety Naproxen (Naproxen 500 Mg Tablet) 500 mg PO BID PRN PRN Reason: Pain (Scale Score 1-3) Nicotine Polacrilex (Nicotine Polacrilex 2 Mg Gum) 4 mg BUCCAL Q2H PRN PRN Reason: Nicotine Cravings Omeprazole (Omeprazole 40 Mg Capsule.Dr) 40 mg PO BID@0630,1630 [facility] Last Admin: 02/22/25 16:38 Dose: 40 mg Polyethylene Glycol (Polyethylene Glycol 3350 17 Gm Powd.Pack) 17 gm PO DAILY PRN PRN Reason: Constipation Prazosin HCl (Prazosin Hcl 1 Mg Capsule) 1 mg PO BEDTIME [facility]; Protocol Last Admin: 02/21/25 20:31 Dose: 1 mg Risperidone (Risperidone 3 Mg Tablet) 3 mg PO BEDTIME [facility] Last Admin: 02/21/25 20:32 Dose: 3 mg Senna (Sennosides 8.6 Mg Tablet) 17.2 mg PO BEDTIME [facility] Last Admin: 02/21/25 20:32 Dose: 17.2 mg Trazodone HCl (Trazodone Hcl 50 Mg Tablet) 50 mg PO BEDTIME MRX1 PRN PRN Reason: Insomnia Last Admin: 02/21/25 20:31 Dose: 50 mg Allergies Allergies Allergy/AdvReac Type Severity Reaction Status Date / Time No Known Allergies Allergy Verified 02/18/25 07:24 [No Known Allergies*] Assessment & Plan Assessment & Plan (1) MDD (major depressive disorder), recurrent severe, without psychosis: Status: Acute Code(s): F33.2 - Major depressive disorder, recurrent severe without psychotic features (2) Anxiety: Status: Acute Code(s): F41.9 - Anxiety disorder, unspecified Plan 54 year-old female with PMHx of Parkinson's with dyskinesia, metabolic encephalopathy, constipation, ulcerative colitis, GERD, IBS, 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 Patient called 911 saying she was short of breath but here in the ED she talked about wanting to . Patient reports that about a month ago, she stopped going to her therapist due to lack of insurance; she says she does not take medications regularly, runs out of them and does not get refills and has been off of her medications for about 2 months. She says that she was doing overall good enough and that depression would come and go. They however she has been feeling more down, tired of always being in pain. Patient explained contributory factors being chronic pain which says seems to have gotten worse recently (patient names almost every part of her body as painful: headaches, joints, stomach, legs, feet...each toe). Patient reports up until a week ago, she was living on her own in her own apartment but this past week she moved into a [facility], saying she needed more support. Over these past few days she became more depressed. Once in the emergency room she says she started to think about ending it... Taking a bunch of pills... Patient explains concretely if I were home I would have done it because I had access to the pills... Here I do not have access to the pills. She reports Hx of SI but has never actually tried to; says usually the feeling passes; reports extreme anxiety since childhood; seems to endorse depressive episodes. -denies AVH or paranoid ideations; she does not know why she is prescribed risperidone -denies drug or alcohol use Formulation/clinical reasoning: Endorses depression and anxiety; has been off her medications which is likely contributory as well as chronic pain though not sure the cause; she says nothing has ever help with her pain before however agrees to start and try gabapentin. Patient with blunted affect and concrete; will seek to rule out ASD. Need collateral Hospital course: 02/21 still feeling down; still thinking of suicide but hopeful not to do it agrees to increase prozac to 40mg; also agrees to increased Gabapentin 300mg TID has not had a BM yet; says chronically has trouble pooping and has been constipated for years -agrees to Mirrilax 02/22 Patient reports that she is still depressed and still feeling suicidal though she reports SI is waning. No bowel movement. No medication side effects and agrees to titration Plan: CV Q 15 minute checks increase to fluoxetine ?40 mg daily famotidine 20 mg b.i.d.; patient says she has chronic GERD risperidone 3 mg q.h.s. prazosin 1 mg q.h.s. Cogentin 0.5 mg b.i.d. Increase gabapentin 300 mg t.i.d. for chronic pain (reviewed risks/side-effects) Will order H pylori antigen stool test; patient says she has had intractable GERD for a long time; has never been tested for H pylori Patient educated on: diagnosis, medication risk/benefits and medical condition Informed Consent: understands Reason for continued inpatient stay Substantial Risk for: inability to function Time Spent With Patient Time: Total time managing care of this patient today ____ minutes.
[2025-02-22] MEDS: polyethylene glycoL 3350 17 GM POWD.PACK PO (18:12)
[2025-02-22 20:04] VITALS: BP 117/72; PULSE 81; TEMP 36.7; O2SAT 96
[2025-02-22] MEDS: Prazosin HCL 1 MG CAPSULE PO (20:40)
[2025-02-22] MEDS: risperiDONE 3 MG TABLET PO (20:41)
[2025-02-22] MEDS: Sennosides 8.6 MG TABLET 17.2 MG PO (20:41)
[2025-02-23] MEDS: Omeprazole 40 MG CAPSULE.DR PO ×2 (06:51→17:15)
[2025-02-23 08:00] VITALS: BP 112/66; PULSE 105; TEMP 36.5; O2SAT 96
[2025-02-23] MEDS: Gabapentin 300 MG CAPSULE PO ×3 (08:32→20:36)
[2025-02-23] MEDS: Atorvastatin Calcium 10 MG TABLET PO (08:32)
[2025-02-23] MEDS: Benztropine Mesylate 0.5 MG TABLET PO ×2 (08:32→20:36)
[2025-02-23] MEDS: Famotidine 20 MG TABLET PO ×2 (08:32→20:36)
[2025-02-23] MEDS: FLUoxetine HCl 20 MG CAPSULE 40 MG PO (08:32)
[2025-02-23] MEDS: Fluticasone Propionate Nasal 16 GM SPRAY 2 SPRAY NOSTRIL-B (08:33)
[2025-02-23 19:50] VITALS: BP 109/73; PULSE 96; TEMP 36.6; O2SAT 98
[2025-02-23] MEDS: Prazosin HCL 1 MG CAPSULE PO (20:35)
[2025-02-23] MEDS: risperiDONE 3 MG TABLET PO (20:35)
[2025-02-23] MEDS: Sennosides 8.6 MG TABLET 17.2 MG PO (20:36)
[2025-02-23] MEDS: traZODone HCL 50 MG TABLET PO (20:36)
--- NOTE | 2025-02-23 22:14 | P.PNPSI_ITS ---
Subjective Subjective Date of Service: 02/23/25 Reason For Visit: Depression Interim History: met with pt; discussed with team says still depressed and still with some SI remaining; agrees to increasing buproprion -still constipated Mental Status Exam Mental Status Exam Narrative: Pt is alert and oriented; behavior is cooperative, calm; patient is not in distress; dressed in casual attire with unkempt hair, glasses, appears older than chronological age, adequate hygiene; mood is described as still depressed and affect blunted; eye contact a little avoidant; Speech is initially a little latent but then becomes quite talkative, even verbose; otherwise normal rate, volume and prosody; some psychomotor retardation present; thought process is goal directed, concrete; Thought content is on dealing with pain; no delusional ideations expressed; currently with SI; no HI. Denies AVH and there is no evidence of perceptual disturbance. Patients insight and judgment impaired Diagnostics Vital Signs (24Hr): Vital Signs - 24 hr 02/23/25 08:00 02/23/25 19:50 Temperature 97.7 F 97.8 F Pulse Rate 105 H 96 Blood Pressure 112/66 109/73 Pulse Oximetry 96 98 Oxygen Delivery Method Room Air Room Air BMI result Body Mass Index 24.5 Labs 02/28/25 17:26 02/28/25 17:26 Imaging Radiology Impressions: ITS Impressions Chest X-Ray 02/18/25 09:58 IMPRESSION: Mild interstitial edema and bilateral pleural effusions, small to moderate volume, similar to slightly worsened since prior exam. Electronically signed by: Hamlet Stephens MD 02/18/2025 10:42 AM EDT Medications Medications Current Medications Acetaminophen (Acetaminophen 325 Mg Tablet) 650 mg PO Q6H PRN PRN Reason: Headache/Pain, Scale 1-10 Al Hydroxide/Mg Hydroxide (Magnesium Hydrox/Alum Hydrox 30 Ml Oral.Susp) 30 ml PO Q6H PRN PRN Reason: Heartburn/Nausea Atorvastatin Calcium (Atorvastatin Calcium 10 Mg Tablet) 10 mg PO DAILY [facility] Last Admin: 02/23/25 08:32 Dose: 10 mg Benztropine Mesylate (Benztropine Mesylate 0.5 Mg Tablet) 0.5 mg PO BID [facility] Last Admin: 02/23/25 20:36 Dose: 0.5 mg Cyclobenzaprine HCl (Cyclobenzaprine Hcl 10 Mg Tablet) 10 mg PO TID PRN PRN Reason: muscle pain or spasm Docusate Sodium (Docusate Sodium 100 Mg Capsule) 100 mg PO DAILY PRN PRN Reason: constipation Famotidine (Famotidine 20 Mg Tablet) 20 mg PO BID [facility] Last Admin: 02/23/25 20:36 Dose: 20 mg Fluoxetine HCl (Fluoxetine Hcl 20 Mg Capsule) 40 mg PO DAILY [facility] Last Admin: 02/23/25 08:32 Dose: 40 mg Fluticasone Propionate (Fluticasone Propionate Nasal 16 Gm [place]) 2 spray NOSTRIL-B DAILY [facility] Last Admin: 02/23/25 08:33 Dose: 2 spray Gabapentin (Gabapentin 300 Mg Capsule) 300 mg PO TID [facility] Last Admin: 02/23/25 20:36 Dose: 300 mg Hydrocortisone (Hydrocortisone 2.5 % Rectal Cr 30 Gm Tube) 1 appl ID Q6H PRN PRN Reason: Hemorrhoids Hydroxyzine HCl (Hydroxyzine Hcl 25 Mg Tablet) 25 mg PO Q6H PRN PRN Reason: mild anxiety Naproxen (Naproxen 500 Mg Tablet) 500 mg PO BID PRN PRN Reason: Pain (Scale Score 1-3) Nicotine Polacrilex (Nicotine Polacrilex 2 Mg Gum) 4 mg BUCCAL Q2H PRN PRN Reason: Nicotine Cravings Omeprazole (Omeprazole 40 Mg Capsule.Dr) 40 mg PO BID@0630,1630 [facility] Last Admin: 02/23/25 17:15 Dose: 40 mg Polyethylene Glycol (Polyethylene Glycol 3350 17 Gm Powd.Pack) 17 gm PO DAILY PRN PRN Reason: Constipation Prazosin HCl (Prazosin Hcl 1 Mg Capsule) 1 mg PO BEDTIME [facility]; Protocol Last Admin: 02/23/25 20:35 Dose: 1 mg Risperidone (Risperidone 3 Mg Tablet) 3 mg PO BEDTIME [facility] Last Admin: 02/23/25 20:35 Dose: 3 mg Senna (Sennosides 8.6 Mg Tablet) 17.2 mg PO BEDTIME [facility] Last Admin: 02/23/25 20:36 Dose: 17.2 mg Trazodone HCl (Trazodone Hcl 50 Mg Tablet) 50 mg PO BEDTIME MRX1 PRN PRN Reason: Insomnia Last Admin: 02/23/25 20:36 Dose: 50 mg Allergies Allergies Allergy/AdvReac Type Severity Reaction Status Date / Time No Known Allergies Allergy Verified 02/18/25 07:24 [No Known Allergies*] Assessment & Plan Assessment & Plan (1) MDD (major depressive disorder), recurrent severe, without psychosis: Status: Acute Code(s): F33.2 - Major depressive disorder, recurrent severe without psychotic features (2) Anxiety: Status: Acute Code(s): F41.9 - Anxiety disorder, unspecified Plan 54 year-old female with PMHx of Parkinson's with dyskinesia, metabolic encephalopathy, constipation, ulcerative colitis, GERD, IBS, 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 Patient called 911 saying she was short of breath but here in the ED she talked about wanting to . Patient reports that about a month ago, she stopped going to her therapist due to lack of insurance; she says she does not take medications regularly, runs out of them and does not get refills and has been off of her medications for about 2 months. She says that she was doing overall good enough and that depression would come and go. They however she has been feeling more down, tired of always being in pain. Patient explained contributory factors being chronic pain which says seems to have gotten worse recently (patient names almost every part of her body as painful: headaches, joints, stomach, legs, feet...each toe). Patient reports up until a week ago, she was living on her own in her own apartment but this past week she [facility] into a [facility], saying she needed more support. Over these past few days she became more depressed. Once in the emergency room she says she started to think about ending it... Taking a bunch of pills... Patient explains concretely if I were home I would have done it because I had access to the pills... Here I do not have access to the pills. She reports Hx of SI but has never actually tried to; says usually the feeling passes; reports extreme anxiety since childhood; seems to endorse depressive episodes. -denies AVH or paranoid ideations; she does not know why she is prescribed risperidone -denies drug or alcohol use Formulation/clinical reasoning: Endorses depression and anxiety; has been off her medications which is likely contributory as well as chronic pain though not sure the cause; she says nothing has ever help with her pain before however agrees to start and try gabapentin. Patient with blunted affect and concrete; will seek to rule out ASD. Need collateral Hospital course: 02/21 still feeling down; still thinking of suicide but hopeful not to do it agrees to increase prozac to 40mg; also agrees to increased Gabapentin 300mg TID has not had a BM yet; says chronically has trouble pooping and has been constipated for years -agrees to Mirrilax 02/22 Patient reports that she is still depressed and still feeling suicidal though she reports SI is waning. No bowel movement. No medication side effects and agrees to titration 02/23 says still depressed and still with some SI remaining; agrees to increasing buproprion -still constipated Plan: CV Q 15 minute checks increase to fluoxetine ?40 mg daily famotidine 20 mg b.i.d.; patient says she has chronic GERD risperidone 3 mg q.h.s. prazosin 1 mg q.h.s. Cogentin 0.5 mg b.i.d. Increase gabapentin 300 mg t.i.d. for chronic pain (reviewed risks/side-effects) Will order H pylori antigen stool test; patient says she has had intractable GERD for a long time; has never been tested for H pylori Patient educated on: diagnosis and medication risk/benefits Informed Consent: understands and further education needed Reason for continued inpatient stay Substantial Risk for: inability to function and rapid decompensation Time Spent With Patient Time: Total time managing care of this patient today ____ minutes.
[2025-02-24] MEDS: Omeprazole 40 MG CAPSULE.DR PO ×2 (06:42→15:31)
[2025-02-24 08:00] VITALS: BP 108/70; PULSE 110; RESP 18; TEMP 36.6; O2SAT 96
[2025-02-24] MEDS: Famotidine 20 MG TABLET PO ×2 (08:51→19:56)
[2025-02-24] MEDS: Benztropine Mesylate 0.5 MG TABLET PO ×2 (08:51→19:56)
[2025-02-24] MEDS: Atorvastatin Calcium 10 MG TABLET PO (08:51)
[2025-02-24] MEDS: Gabapentin 300 MG CAPSULE PO ×3 (08:51→19:56)
[2025-02-24] MEDS: FLUoxetine HCl 20 MG CAPSULE 40 MG PO (08:51)
[2025-02-24] MEDS: Fluticasone Propionate Nasal 16 GM SPRAY 2 SPRAY NOSTRIL-B (08:51)
[2025-02-24] MEDS: buPROPion HCl XL 150 MG TAB.ER.24H PO (10:27)
--- NOTE | 2025-02-24 16:13 | P.PNPSI_ITS ---
Subjective Subjective Date of Service: 02/24/25 Reason For Visit: Depression Interim History: met with pt; discussed with team says still depressed; still with some SI; talked about anxiety as well. pt says no change in chronic body pain with gabapentin; agrees to titrate Mental Status Exam Mental Status Exam Narrative: Pt is alert and oriented; behavior is cooperative, calm; patient is not in distress; dressed in casual attire with unkempt hair, glasses, appears older than chronological age, adequate hygiene; mood is described as still depressed and affect blunted; eye contact a little avoidant; Speech is initially a little latent but then becomes quite talkative, even verbose; otherwise normal rate, volume and prosody; some psychomotor retardation present; thought process is goal directed, concrete; Thought content is on dealing with pain; no delusional ideations expressed; still with some SI; no HI. Denies AVH and there is no evidence of perceptual disturbance. Patients insight and judgment impaired Diagnostics Vital Signs (24Hr): Vital Signs - 24 hr 02/23/25 19:50 02/24/25 08:00 Temperature 97.8 F 97.9 F Pulse Rate 96 110 H Respiratory Rate 18 Blood Pressure 109/73 108/70 Pulse Oximetry 98 96 Oxygen Delivery Method Room Air Room Air BMI result Body Mass Index 24.5 Labs 02/28/25 17:26 02/28/25 17:26 Imaging Radiology Impressions: ITS Impressions Chest X-Ray 02/18/25 09:58 IMPRESSION: Mild interstitial edema and bilateral pleural effusions, small to moderate volume, similar to slightly worsened since prior exam. Electronically signed by: Hamlet Stephens MD 02/18/2025 10:42 AM EDT Medications Medications Current Medications Acetaminophen (Acetaminophen 325 Mg Tablet) 650 mg PO Q6H PRN PRN Reason: Headache/Pain, Scale 1-10 Al Hydroxide/Mg Hydroxide (Magnesium Hydrox/Alum Hydrox 30 Ml Oral.Susp) 30 ml PO Q6H PRN PRN Reason: Heartburn/Nausea Atorvastatin Calcium (Atorvastatin Calcium 10 Mg Tablet) 10 mg PO DAILY [facility] Last Admin: 02/24/25 08:51 Dose: 10 mg Benztropine Mesylate (Benztropine Mesylate 0.5 Mg Tablet) 0.5 mg PO BID [facility] Last Admin: 02/24/25 08:51 Dose: 0.5 mg Bupropion HCl (Bupropion Hcl Xl 150 Mg Tab.Er.24h) 150 mg PO DAILY [facility] Last Admin: 02/24/25 10:27 Dose: 150 mg Cyclobenzaprine HCl (Cyclobenzaprine Hcl 10 Mg Tablet) 10 mg PO TID PRN PRN Reason: muscle pain or spasm Docusate Sodium (Docusate Sodium 100 Mg Capsule) 100 mg PO DAILY PRN PRN Reason: constipation Famotidine (Famotidine 20 Mg Tablet) 20 mg PO BID [facility] Last Admin: 02/24/25 08:51 Dose: 20 mg Fluoxetine HCl (Fluoxetine Hcl 20 Mg Capsule) 40 mg PO DAILY [facility] Last Admin: 02/24/25 08:51 Dose: 40 mg Fluticasone Propionate (Fluticasone Propionate Nasal 16 Gm [place]) 2 spray NOSTRIL-B DAILY [facility] Last Admin: 02/24/25 08:51 Dose: 2 spray Gabapentin (Gabapentin 300 Mg Capsule) 300 mg PO TID [facility] Last Admin: 02/24/25 15:31 Dose: 300 mg Hydrocortisone (Hydrocortisone 2.5 % Rectal Cr 30 Gm Tube) 1 appl [place] Q6H PRN PRN Reason: Hemorrhoids Hydroxyzine HCl (Hydroxyzine Hcl 25 Mg Tablet) 25 mg PO Q6H PRN PRN Reason: mild anxiety Naproxen (Naproxen 500 Mg Tablet) 500 mg PO BID PRN PRN Reason: Pain (Scale Score 1-3) Nicotine Polacrilex (Nicotine Polacrilex 2 Mg Gum) 4 mg BUCCAL Q2H PRN PRN Reason: Nicotine Cravings Omeprazole (Omeprazole 40 Mg Capsule.Dr) 40 mg PO BID@0630,1630 [facility] Last Admin: 02/24/25 15:31 Dose: 40 mg Polyethylene Glycol (Polyethylene Glycol 3350 17 Gm Powd.Pack) 17 gm PO DAILY PRN PRN Reason: Constipation Polyethylene Glycol (Polyethylene Glycol 3350 17 Gm Powd.Pack) 17 gm PO DAILY [facility] Prazosin HCl (Prazosin Hcl 1 Mg Capsule) 1 mg PO BEDTIME [facility]; Protocol Last Admin: 02/23/25 20:35 Dose: 1 mg Risperidone (Risperidone 3 Mg Tablet) 3 mg PO BEDTIME [facility] Last Admin: 02/23/25 20:35 Dose: 3 mg Senna (Sennosides 8.6 Mg Tablet) 17.2 mg PO BEDTIME [facility] Last Admin: 02/23/25 20:36 Dose: 17.2 mg Trazodone HCl (Trazodone Hcl 50 Mg Tablet) 50 mg PO BEDTIME MRX1 PRN PRN Reason: Insomnia Last Admin: 02/23/25 20:36 Dose: 50 mg Allergies Allergies Allergy/AdvReac Type Severity Reaction Status Date / Time No Known Allergies Allergy Verified 02/18/25 07:24 [No Known Allergies*] Assessment & Plan Assessment & Plan (1) MDD (major depressive disorder), recurrent severe, without psychosis: Status: Acute Code(s): F33.2 - Major depressive disorder, recurrent severe without psychotic features (2) Anxiety: Status: Acute Code(s): F41.9 - Anxiety disorder, unspecified Plan 54 year-old female with PMHx of Parkinson's with dyskinesia, metabolic encephalopathy, constipation, ulcerative colitis, GERD, IBS, 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 Patient called 911 saying she was short of breath but here in the ED she talked about wanting to . Patient reports that about a month ago, she stopped going to her therapist due to lack of insurance; she says she does not take medications regularly, runs out of them and does not get refills and has been off of her medications for about 2 months. She says that she was doing overall good enough and that depression would come and go. They however she has been feeling more down, tired of always being in pain. Patient explained contributory factors being chronic pain which says seems to have gotten worse recently (patient names almost every part of her body as painful: headaches, joints, stomach, legs, feet...each toe). Patient reports up until a week ago, she was living on her own in her own apartment but this past week she moved into a assisted, saying she needed more support. Over these past few days she became more depressed. Once in the emergency room she says she started to think about ending it... Taking a bunch of pills... Patient explains concretely if I were home I would have done it because I had access to the pills... Here I do not have access to the pills. She reports Hx of SI but has never actually tried to; says usually the feeling passes; reports extreme anxiety since childhood; seems to endorse depressive episodes. -denies AVH or paranoid ideations; she does not know why she is prescribed risperidone -denies drug or alcohol use Formulation/clinical reasoning: Endorses depression and anxiety; has been off her medications which is likely contributory as well as chronic pain though not sure the cause; she says nothing has ever help with her pain before however agrees to start and try gabapentin. Patient with blunted affect and concrete; will seek to rule out ASD. Need collateral Hospital course: 02/21 still feeling down; still thinking of suicide but hopeful not to do it agrees to increase prozac to 40mg; also agrees to increased Gabapentin 300mg TID has not had a BM yet; says chronically has trouble pooping and has been constipated for years -agrees to Mirrilax 02/22 Patient reports that she is still depressed and still feeling suicidal though she reports SI is waning. No bowel movement. No medication side effects and agrees to titration 02/23 says still depressed and still with some SI remaining; agrees to increasing buproprion -still constipated 02/24 says still depressed; still with some SI; talked about anxiety as well. pt says no change in chronic body pain with gabapentin; agrees to titrate Plan: CV Q 15 minute checks increase to fluoxetine ?40 mg daily famotidine 20 mg b.i.d.; patient says she has chronic GERD risperidone 3 mg q.h.s. prazosin 1 mg q.h.s. Cogentin 0.5 mg b.i.d. Increase gabapentin 300 mg t.i.d. for chronic pain (reviewed risks/side-effects) Will order H pylori antigen stool test; patient says she has had intractable GERD for a long time; has never been tested for H pylori Patient educated on: diagnosis, medication risk/benefits and medical condition Informed Consent: understands and further education needed Reason for continued inpatient stay Substantial Risk for: inability to function Time Spent With Patient Time: Total time managing care of this patient today ____ minutes.
[2025-02-24 19:30] VITALS: BP 113/65; PULSE 109; TEMP 36.9; O2SAT 98
[2025-02-24] MEDS: risperiDONE 3 MG TABLET PO (19:55)
[2025-02-24] MEDS: Prazosin HCL 1 MG CAPSULE PO (19:55)
[2025-02-24] MEDS: Sennosides 8.6 MG TABLET 17.2 MG PO (19:56)
[2025-02-24] MEDS: traZODone HCL 50 MG TABLET PO (19:56)
[2025-02-25] MEDS: Omeprazole 40 MG CAPSULE.DR PO ×2 (06:30→17:08)
[2025-02-25 08:13] VITALS: BP 109/54; PULSE 95; TEMP 36.4; O2SAT 96
[2025-02-25] MEDS: polyethylene glycoL 3350 17 GM POWD.PACK PO (09:32)
[2025-02-25] MEDS: Fluticasone Propionate Nasal 16 GM SPRAY 2 SPRAY NOSTRIL-B (09:33)
[2025-02-25] MEDS: buPROPion HCl XL 150 MG TAB.ER.24H PO (09:33)
[2025-02-25] MEDS: Gabapentin 300 MG CAPSULE PO (09:33)
[2025-02-25] MEDS: Atorvastatin Calcium 10 MG TABLET PO (09:34)
[2025-02-25] MEDS: FLUoxetine HCl 20 MG CAPSULE 40 MG PO (09:34)
[2025-02-25] MEDS: Benztropine Mesylate 0.5 MG TABLET PO ×2 (09:34→22:15)
[2025-02-25] MEDS: Famotidine 20 MG TABLET PO ×2 (09:34→22:15)
[2025-02-25 10:32] VITALS: BMI 25.4
[2025-02-25] MEDS: Gabapentin 400 MG CAPSULE PO ×2 (15:00→22:15)
[2025-02-25 20:17] VITALS: BP 125/68; PULSE 79; TEMP 37.1; O2SAT 100
[2025-02-25] MEDS: Sennosides 8.6 MG TABLET 17.2 MG PO (22:15)
[2025-02-25 22:16] VITALS: BP 118/70
[2025-02-25] MEDS: risperiDONE 3 MG TABLET PO (22:16)
[2025-02-25] MEDS: Prazosin HCL 1 MG CAPSULE PO (22:16)
[2025-02-26 08:00] VITALS: BP 96/60; PULSE 82; TEMP 36.9; O2SAT 96
[2025-02-26] MEDS: Fluticasone Propionate Nasal 16 GM SPRAY 2 SPRAY NOSTRIL-B (08:31)
[2025-02-26] MEDS: buPROPion HCl XL 300 MG TAB.ER.24H PO (08:32)
[2025-02-26] MEDS: FLUoxetine HCl 20 MG CAPSULE 40 MG PO (08:32)
[2025-02-26] MEDS: Gabapentin 400 MG CAPSULE PO ×3 (08:32→20:15)
[2025-02-26] MEDS: Atorvastatin Calcium 10 MG TABLET PO (08:32)
[2025-02-26] MEDS: Famotidine 20 MG TABLET PO ×2 (08:32→20:15)
[2025-02-26] MEDS: Benztropine Mesylate 0.5 MG TABLET PO ×2 (08:32→20:15)
[2025-02-26] MEDS: Omeprazole 40 MG CAPSULE.DR PO ×2 (08:32→16:29)
--- NOTE | 2025-02-26 10:24 | HO.PSYCHPN ---
Subjective Subjective Date of Service: 02/26/25 Reason For Visit: Depression Interim History: Team reports pt is struggling to have a bowel movement. She declines laxative assistance. Discussed generalized chronic pain Reports she is feeling good about being on the unit. Review of Systems Review of Systems chronic musculoskeletal pain Mental Status Exam Mental Status Exam Patient Appearance: Appropriate Patient Orientation: Person, Place and Situation Level of Consciousness: Alert Patient Behavior: Talkative and Good Eye Contact Mood Description: Apprehensive Affect Description: Apprehensive Ability to Follow Directions: Good Speech Pattern: Garbled and Spontaneous Speech Memory Description: Episodic Impaired Hallucinations: None Delusions: Not Present Thought Process: Distracted Thought Content: positive for Circumstantial Depressive Symptoms: Increased Anxiety and Low Self Esteem Judgement: Fair Diagnostics Vital Signs (24Hr): Vital Signs - 24 hr 02/25/25 20:17 02/25/25 22:16 02/26/25 08:00 Temperature 98.8 F 98.4 F Pulse Rate 79 82 Blood Pressure 125/68 118/70 96/60 Pulse Oximetry 100 96 Oxygen Delivery Method Room Air Room Air BMI result Body Mass Index 25.4 Labs 02/18/25 08:54 02/18/25 08:54 Imaging Radiology Impressions: ITS Impressions Chest X-Ray 02/18/25 09:58 IMPRESSION: Mild interstitial edema and bilateral pleural effusions, small to moderate volume, similar to slightly worsened since prior exam. Electronically signed by: Hamlet Stephens MD 02/18/2025 10:42 AM EDT RP Medications Medications Current Medications Acetaminophen (Acetaminophen 325 Mg Tablet) 650 mg PO Q6H PRN PRN Reason: Headache/Pain, Scale 1-10 Al Hydroxide/Mg Hydroxide (Magnesium Hydrox/Alum Hydrox 30 Ml Oral.Susp) 30 ml PO Q6H PRN PRN Reason: Heartburn/Nausea Atorvastatin Calcium (Atorvastatin Calcium 10 Mg Tablet) 10 mg PO DAILY [facility] Last Admin: 02/26/25 08:32 Dose: 10 mg Benztropine Mesylate (Benztropine Mesylate 0.5 Mg Tablet) 0.5 mg PO BID [facility] Last Admin: 02/26/25 08:32 Dose: 0.5 mg Bupropion HCl (Bupropion Hcl Xl 300 Mg Tab.Er.24h) 300 mg PO DAILY [facility] Last Admin: 05/02/25 08:32 Dose: 300 mg Cyclobenzaprine HCl (Cyclobenzaprine Hcl 10 Mg Tablet) 10 mg PO TID PRN PRN Reason: muscle pain or spasm Docusate Sodium (Docusate Sodium 100 Mg Capsule) 100 mg PO DAILY PRN PRN Reason: constipation Famotidine (Famotidine 20 Mg Tablet) 20 mg PO BID [facility] Last Admin: 02/26/25 08:32 Dose: 20 mg Fluoxetine HCl (Fluoxetine Hcl 20 Mg Capsule) 40 mg PO DAILY [facility] Last Admin: 02/26/25 08:32 Dose: 40 mg Fluticasone Propionate (Fluticasone Propionate Nasal 16 Gm [place]) 2 spray NOSTRIL-B DAILY [facility] Last Admin: 02/26/25 08:31 Dose: 2 spray Gabapentin (Gabapentin 400 Mg Capsule) 400 mg PO TID [facility] Last Admin: 02/26/25 08:32 Dose: 400 mg Hydrocortisone (Hydrocortisone 2.5 % Rectal Cr 30 Gm Tube) 1 appl [place] Q6H PRN PRN Reason: Hemorrhoids Hydroxyzine HCl (Hydroxyzine Hcl 25 Mg Tablet) 25 mg PO Q6H PRN PRN Reason: mild anxiety Naproxen (Naproxen 500 Mg Tablet) 500 mg PO BID PRN PRN Reason: Pain (Scale Score 1-3) Nicotine Polacrilex (Nicotine Polacrilex 2 Mg Gum) 4 mg BUCCAL Q2H PRN PRN Reason: Nicotine Cravings Omeprazole (Omeprazole 40 Mg Capsule.Dr) 40 mg PO BID@0630,1630 [facility] Last Admin: 02/26/25 08:32 Dose: 40 mg Polyethylene Glycol (Polyethylene Glycol 3350 17 Gm Powd.Pack) 17 gm PO DAILY PRN PRN Reason: Constipation Polyethylene Glycol (Polyethylene Glycol 3350 17 Gm Powd.Pack) 17 gm PO DAILY [facility] Last Admin: 02/26/25 08:35 Dose: Not Given Prazosin HCl (Prazosin Hcl 1 Mg Capsule) 1 mg PO BEDTIME [facility]; Protocol Last Admin: 02/25/25 22:16 Dose: 1 mg Risperidone (Risperidone 3 Mg Tablet) 3 mg PO BEDTIME [facility] Last Admin: 02/25/25 22:16 Dose: 3 mg Senna (Sennosides 8.6 Mg Tablet) 17.2 mg PO BEDTIME [facility] Last Admin: 02/25/25 22:15 Dose: 17.2 mg Trazodone HCl (Trazodone Hcl 50 Mg Tablet) 50 mg PO BEDTIME MRX1 PRN PRN Reason: Insomnia Last Admin: 02/24/25 19:56 Dose: 50 mg Allergies Allergies Allergy/AdvReac Type Severity Reaction Status Date / Time No Known Allergies Allergy Verified 02/18/25 07:24 [No Known Allergies*] Assessment & Plan Assessment & Plan (1) MDD (major depressive disorder), recurrent severe, without psychosis: Status: Acute Code(s): F33.2 - Major depressive disorder, recurrent severe without psychotic features (2) Anxiety: Status: Acute Code(s): F41.9 - Anxiety disorder, unspecified Plan 54 year-old female with PMHx of Parkinson's with dyskinesia, metabolic encephalopathy, constipation, ulcerative colitis, GERD, IBS, 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 Patient called 911 saying she was short of breath but here in the ED she talked about wanting to . Patient reports that about a month ago, she stopped going to her therapist due to lack of insurance; she says she does not take medications regularly, runs out of them and does not get refills and has been off of her medications for about 2 months. She says that she was doing overall good enough and that depression would come and go. They however she has been feeling more down, tired of always being in pain. Patient explained contributory factors being chronic pain which says seems to have gotten worse recently (patient names almost every part of her body as painful: headaches, joints, stomach, legs, feet...each toe). Patient reports up until a week ago, she was living on her own in her own apartment but this past week she moved into a snf, saying she needed more support. Over these past few days she became more depressed. Once in the emergency room she says she started to think about ending it... Taking a bunch of pills... Patient explains concretely if I were home I would have done it because I had access to the pills... Here I do not have access to the pills. She reports Hx of SI but has never actually tried to; says usually the feeling passes; reports extreme anxiety since childhood; seems to endorse depressive episodes. -denies AVH or paranoid ideations; she does not know why she is prescribed risperidone -denies drug or alcohol use Formulation/clinical reasoning: Endorses depression and anxiety; has been off her medications which is likely contributory as well as chronic pain though not sure the cause; she says nothing has ever help with her pain before however agrees to start and try gabapentin. Patient with blunted affect and concrete; will seek to rule out ASD. Need collateral Hospital course: 02/21 still feeling down; still thinking of suicide but hopeful not to do it agrees to increase prozac to 40mg; also agrees to increased Gabapentin 300mg TID has not had a BM yet; says chronically has trouble pooping and has been constipated for years -agrees to Mirrilax 02/22 Patient reports that she is still depressed and still feeling suicidal though she reports SI is waning. No bowel movement. No medication side effects and agrees to titration 02/26- Constipated. Declines laxatives. Reports Miralax does not work. Discussed holistic items (prunes, coffee, prune juice) Reports current regime to be helpful. Will continue this plan. Plan: CV Q 15 minute checks increase to fluoxetine ?40 mg daily famotidine 20 mg b.i.d.; patient says she has chronic GERD risperidone 3 mg q.h.s. prazosin 1 mg q.h.s. Cogentin 0.5 mg b.i.d. Increase gabapentin 300 mg t.i.d. for chronic pain (reviewed risks/side-effects) Will order H pylori antigen stool test; patient says she has had intractable GERD for a long time; has never been tested for H pylori Reason for continued inpatient stay Substantial Risk for: rapid decompensation Time Spent With Patient Time: Total time managing care of this patient today ____ minutes.
[2025-02-26 19:43] VITALS: BP 103/56; PULSE 101; TEMP 37.1; O2SAT 94
[2025-02-26] MEDS: Prazosin HCL 1 MG CAPSULE PO (20:15)
[2025-02-26] MEDS: risperiDONE 3 MG TABLET PO (20:15)
[2025-02-26] MEDS: Sennosides 8.6 MG TABLET 17.2 MG PO (20:15)
[2025-02-27] MEDS: Omeprazole 40 MG CAPSULE.DR PO ×2 (06:35→16:36)
--- NOTE | 2025-02-27 07:20 | HO.PSYCHPN ---
Subjective Subjective Date of Service: 02/27/25 Reason For Visit: Depression Subjective Notes: Conditional Voluntary Healthcare Proxy: No Guardianship: No Medical Problems Affecting Mental Status: No Interim History: 54 yo with depression, when sad, sleeps - spending time in bed, denies current issues other than depression, with this provider- though nursing reports pt urinated in chair and on roommates clothing- Medication Compliance: Yes Side effects from medications: Yes (ongoing bowel/bladder problems) Attending Groups: No Review of Systems Acute medical concerns: No Medical Review of Systems: unchanged Diagnostics Vital Signs (24Hr): Vital Signs - 24 hr 02/26/25 08:00 02/26/25 19:43 Temperature 98.4 F 98.7 F Pulse Rate 82 101 H Blood Pressure 96/60 103/56 L Pulse Oximetry 96 94 Oxygen Delivery Method Room Air Room Air BMI result Body Mass Index 25.4 Labs 02/18/25 08:54 02/18/25 08:54 Imaging Radiology Impressions: ITS Impressions Chest X-Ray 02/18/25 09:58 IMPRESSION: Mild interstitial edema and bilateral pleural effusions, small to moderate volume, similar to slightly worsened since prior exam. Electronically signed by: Hamlet Stephens MD 02/18/2025 10:42 AM EDT Medications Medications Current Medications Acetaminophen (Acetaminophen 325 Mg Tablet) 650 mg PO Q6H PRN PRN Reason: Headache/Pain, Scale 1-10 Al Hydroxide/Mg Hydroxide (Magnesium Hydrox/Alum Hydrox 30 Ml Oral.Susp) 30 ml PO Q6H PRN PRN Reason: Heartburn/Nausea Atorvastatin Calcium (Atorvastatin Calcium 10 Mg Tablet) 10 mg PO DAILY [facility] Last Admin: 02/26/25 08:32 Dose: 10 mg Benztropine Mesylate (Benztropine Mesylate 0.5 Mg Tablet) 0.5 mg PO BID [facility] Last Admin: 02/26/25 20:15 Dose: 0.5 mg Bupropion HCl (Bupropion Hcl Xl 300 Mg Tab.Er.24h) 300 mg PO DAILY [facility] Last Admin: 02/26/25 08:32 Dose: 300 mg Cyclobenzaprine HCl (Cyclobenzaprine Hcl 10 Mg Tablet) 10 mg PO TID PRN PRN Reason: muscle pain or spasm Docusate Sodium (Docusate Sodium 100 Mg Capsule) 100 mg PO DAILY PRN PRN Reason: constipation Famotidine (Famotidine 20 Mg Tablet) 20 mg PO BID [facility] Last Admin: 02/26/25 20:15 Dose: 20 mg Fluoxetine HCl (Fluoxetine Hcl 20 Mg Capsule) 40 mg PO DAILY [facility] Last Admin: 02/26/25 08:32 Dose: 40 mg Fluticasone Propionate (Fluticasone Propionate Nasal 16 Gm [place]) 2 spray NOSTRIL-B DAILY [facility] Last Admin: 02/26/25 08:31 Dose: 2 spray Gabapentin (Gabapentin 400 Mg Capsule) 400 mg PO TID [facility] Last Admin: 02/26/25 20:15 Dose: 400 mg Hydrocortisone (Hydrocortisone 2.5 % Rectal Cr 30 Gm Tube) 1 appl [place] Q6H PRN PRN Reason: Hemorrhoids Hydroxyzine HCl (Hydroxyzine Hcl 25 Mg Tablet) 25 mg PO Q6H PRN PRN Reason: mild anxiety Naproxen (Naproxen 500 Mg Tablet) 500 mg PO BID PRN PRN Reason: Pain (Scale Score 1-3) Nicotine Polacrilex (Nicotine Polacrilex 2 Mg Gum) 4 mg BUCCAL Q2H PRN PRN Reason: Nicotine Cravings Omeprazole (Omeprazole 40 Mg Capsule.Dr) 40 mg PO BID@0630,1630 [facility] Last Admin: 02/27/25 06:35 Dose: 40 mg Polyethylene Glycol (Polyethylene Glycol 3350 17 Gm Powd.Pack) 17 gm PO DAILY PRN PRN Reason: Constipation Polyethylene Glycol (Polyethylene Glycol 3350 17 Gm Powd.Pack) 17 gm PO DAILY [facility] Last Admin: 02/26/25 08:35 Dose: Not Given Prazosin HCl (Prazosin Hcl 1 Mg Capsule) 1 mg PO BEDTIME [facility]; Protocol Last Admin: 02/26/25 20:15 Dose: 1 mg Risperidone (Risperidone 3 Mg Tablet) 3 mg PO BEDTIME [facility] Last Admin: 02/26/25 20:15 Dose: 3 mg Senna (Sennosides 8.6 Mg Tablet) 17.2 mg PO BEDTIME [facility] Last Admin: 02/26/25 20:15 Dose: 17.2 mg Trazodone HCl (Trazodone Hcl 50 Mg Tablet) 50 mg PO BEDTIME MRX1 PRN PRN Reason: Insomnia Last Admin: 02/24/25 19:56 Dose: 50 mg Allergies Allergies Allergy/AdvReac Type Severity Reaction Status Date / Time No Known Allergies Allergy Verified 02/18/25 07:24 [No Known Allergies*] Assessment & Plan Assessment & Plan (1) MDD (major depressive disorder), recurrent severe, without psychosis: Status: Acute Code(s): F33.2 - Major depressive disorder, recurrent severe without psychotic features (2) Anxiety: Status: Acute Code(s): F41.9 - Anxiety disorder, unspecified Plan 54 year-old female with PMHx of Parkinson's with dyskinesia, metabolic encephalopathy, constipation, ulcerative colitis, GERD, IBS, 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 Patient called 911 saying she was short of breath but here in the ED she talked about wanting to . Patient reports that about a month ago, she stopped going to her therapist due to lack of insurance; she says she does not take medications regularly, runs out of them and does not get refills and has been off of her medications for about 2 months. She says that she was doing overall good enough and that depression would come and go. They however she has been feeling more down, tired of always being in pain. Patient explained contributory factors being chronic pain which says seems to have gotten worse recently (patient names almost every part of her body as painful: headaches, joints, stomach, legs, feet...each toe). Patient reports up until a week ago, she was living on her own in her own apartment but this past week she moved into a fdc, saying she needed more support. Over these past few days she became more depressed. Once in the emergency room she says she started to think about ending it... Taking a bunch of pills... Patient explains concretely if I were home I would have done it because I had access to the pills... Here I do not have access to the pills. She reports Hx of SI but has never actually tried to; says usually the feeling passes; reports extreme anxiety since childhood; seems to endorse depressive episodes. -denies AVH or paranoid ideations; she does not know why she is prescribed risperidone -denies drug or alcohol use Formulation/clinical reasoning: Endorses depression and anxiety; has been off her medications which is likely contributory as well as chronic pain though not sure the cause; she says nothing has ever help with her pain before however agrees to start and try gabapentin. Patient with blunted affect and concrete; will seek to rule out ASD. Need collateral Hospital course: 02/21 still feeling down; still thinking of suicide but hopeful not to do it agrees to increase prozac to 40mg; also agrees to increased Gabapentin 300mg TID has not had a BM yet; says chronically has trouble pooping and has been constipated for years -agrees to Mirrilax 02/22 Patient reports that she is still depressed and still feeling suicidal though she reports SI is waning. No bowel movement. No medication side effects and agrees to titration 02/26- Constipated. Declines laxatives. Reports Miralax does not work. Discussed holistic items (prunes, coffee, prune juice) Reports current regime to be helpful. Will continue this plan. 02/27- CTP Plan: CV Q 15 minute checks increase to fluoxetine ?40 mg daily famotidine 20 mg b.i.d.; patient says she has chronic GERD risperidone 3 mg q.h.s. prazosin 1 mg q.h.s. Cogentin 0.5 mg b.i.d. Increase gabapentin 300 mg t.i.d. for chronic pain (reviewed risks/side-effects) Will order H pylori antigen stool test; patient says she has had intractable GERD for a long time; has never been tested for H pylori Reason for continued inpatient stay Substantial Risk for: inability to function and rapid decompensation Time Spent With Patient Time: Total time managing care of this patient today ____ minutes.
[2025-02-27 08:00] VITALS: BP 105/57; PULSE 95; TEMP 35.8; O2SAT 95
[2025-02-27] MEDS: Fluticasone Propionate Nasal 16 GM SPRAY 2 SPRAY NOSTRIL-B (08:41)
[2025-02-27] MEDS: buPROPion HCl XL 300 MG TAB.ER.24H PO (08:42)
[2025-02-27] MEDS: Gabapentin 400 MG CAPSULE PO ×3 (08:42→20:25)
[2025-02-27] MEDS: FLUoxetine HCl 20 MG CAPSULE 40 MG PO (08:42)
[2025-02-27] MEDS: polyethylene glycoL 3350 17 GM POWD.PACK PO (08:42)
[2025-02-27] MEDS: Benztropine Mesylate 0.5 MG TABLET PO ×2 (08:43→20:26)
[2025-02-27] MEDS: Atorvastatin Calcium 10 MG TABLET PO (08:43)
[2025-02-27] MEDS: Famotidine 20 MG TABLET PO ×2 (08:43→20:26)
[2025-02-27 15:08] VITALS: BP 101/65; PULSE 108; TEMP 37.1; O2SAT 96
[2025-02-27 19:41] VITALS: BP 112/58; PULSE 101; TEMP 36.8; O2SAT 97
[2025-02-27] MEDS: risperiDONE 3 MG TABLET PO (20:25)
[2025-02-27] MEDS: Sennosides 8.6 MG TABLET 17.2 MG PO (20:26)
[2025-02-27] MEDS: Prazosin HCL 1 MG CAPSULE PO (20:26)
[2025-02-27] MEDS: traZODone HCL 50 MG TABLET PO (20:26)
[2025-02-28] VITALS (7 sets, daily range): BP systolic 107–118; BP diastolic 57–76; PULSE 84–102; RESP 20; TEMP 36.8–36.9; O2SAT 93–99
--- NOTE | 2025-02-28 | ECG_ITS ---
Test Reason : dizziness Blood Pressure : */* mmHG Vent. Rate : 98 BPM Atrial Rate : 98 BPM P-R Int : 142 ms QRS Dur : 86 ms QT Int : 342 ms P-R-T Axes : 30 -14 33 degrees QTcB Int : 436 ms Normal sinus rhythm Normal ECG When compared with ECG of 18-Feb-2025 07:54, Incomplete right bundle branch block is no longer Present Referred By: Whit Ariza Electronically Signed By: CHAI TOWNSEND
--- NOTE | 2025-02-28 01:57 | PC.NURSE ---
Addendum entered by Jayne Rivera RN 02/28/25 05:11: Toileting plan initiated. Patient to ring call hung for toileting needs during the night. Original Note: Patient in BR attempting to place HAT on floor prior to standing up completely from toilet and lost balance and slipped to floor. Patient was helped back to bed. Vitals were taken ( Pulse 102, BP 116/75 and O2Sat 99%). Alert and oriented x4. Able to move all extremities. No obvious injuries noted. Patient states I'm OK . Patient encouraged not to try and place HAT in and out of toilet during the night. Will continue to monitor.
[2025-02-28] MEDS: Omeprazole 40 MG CAPSULE.DR PO ×2 (06:29→16:08)
--- NOTE | 2025-02-28 07:59 | HO.PSYCHPN ---
Subjective Subjective Date of Service: 02/28/25 Reason For Visit: Depression Subjective Notes: Conditional Voluntary Healthcare Proxy: No Guardianship: No Medical Problems Affecting Mental Status: Yes (possibly) Interim History: 54 yo fell in middle of night - supposedly off of toilet- and landed on floor hurting left hip- had xray done today- to check - also later patient became confused dizzy and slurred speech, though vss - ekg done- and head ct ordered and requested hospitalist come see- Nursing reported pt co of ah/, and speech was impaired (she mumbles at baseline-possibly but we don't know her enough to know that ) Medication Compliance: Intermittent (roommate reported pt spitting them out? (not reliable long goods drier but taken into consideration will do mouth checks and change to liquid risperidone) Side effects from medications: No Attending Groups: No Review of Systems Acute medical concerns: Yes Medical Review of Systems: changed Review of Systems: see above also patient co all over body aches- and pains Mental Status Exam Mental Status Exam Patient Appearance: Unkempt Patient Orientation: Person, Place, Time and Situation Level of Consciousness: Awake Patient Behavior: Dependent, Cooperative, Passive and Avoidant Mood Description: Apathetic Affect Description: Blunted Patient Cognition Impaired: Yes Ability to Follow Directions: Fair Speech Pattern: Mumbled Hallucinations: Auditory and Visual Thought Process: Confusion Thought Content: positive for Poverty of Content Depressive Symptoms: Muscle Tension and Increased Fatigue Judgement: Poor Diagnostics Vital Signs (24Hr): Vital Signs - 24 hr 02/27/25 08:00 02/27/25 15:08 02/27/25 19:41 Temperature 96.5 F L 98.7 F 98.2 F Pulse Rate 95 108 H 101 H Blood Pressure 105/57 L 101/65 112/58 L Pulse Oximetry 95 96 97 Oxygen Delivery Method Room Air Room Air Room Air 02/28/25 01:56 02/28/25 05:03 Temperature Pulse Rate 102 H 102 H Blood Pressure 116/75 116/75 Pulse Oximetry 99 99 Oxygen Delivery Method Room Air BMI result Body Mass Index 25.4 Labs 02/18/25 08:54 02/18/25 08:54 Labs: 54 will repeat cbc and basic metabolic EKG EKG: reviewed Imaging Radiology Impressions: ITS Impressions Chest X-Ray 02/18/25 09:58 IMPRESSION: Mild interstitial edema and bilateral pleural effusions, small to moderate volume, similar to slightly worsened since prior exam. Electronically signed by: Hamlet Stephens MD 02/18/2025 10:[address] and hip xray unremarkable Medications Medications Current Medications Acetaminophen (Acetaminophen 325 Mg Tablet) 650 mg PO Q6H PRN PRN Reason: Headache/Pain, Scale 1-10 Al Hydroxide/Mg Hydroxide (Magnesium Hydrox/Alum Hydrox 30 Ml Oral.Susp) 30 ml PO Q6H PRN PRN Reason: Heartburn/Nausea Atorvastatin Calcium (Atorvastatin Calcium 10 Mg Tablet) 10 mg PO DAILY [facility] Last Admin: 02/27/25 08:43 Dose: 10 mg Benztropine Mesylate (Benztropine Mesylate 0.5 Mg Tablet) 0.5 mg PO BID [facility] Last Admin: 02/27/25 20:26 Dose: 0.5 mg Bupropion HCl (Bupropion Hcl Xl 300 Mg Tab.Er.24h) 300 mg PO DAILY [facility] Last Admin: 02/27/25 08:42 Dose: 300 mg Cyclobenzaprine HCl (Cyclobenzaprine Hcl 10 Mg Tablet) 10 mg PO TID PRN PRN Reason: muscle pain or spasm Docusate Sodium (Docusate Sodium 100 Mg Capsule) 100 mg PO DAILY PRN PRN Reason: constipation Famotidine (Famotidine 20 Mg Tablet) 20 mg PO BID [facility] Last Admin: 02/27/25 20:26 Dose: 20 mg Fluoxetine HCl (Fluoxetine Hcl 20 Mg Capsule) 40 mg PO DAILY [facility] Last Admin: 02/27/25 08:42 Dose: 40 mg Fluticasone Propionate (Fluticasone Propionate Nasal 16 Gm [place]) 2 spray NOSTRIL-B DAILY [facility] Last Admin: 02/27/25 08:41 Dose: 2 spray Gabapentin (Gabapentin 400 Mg Capsule) 400 mg PO TID [facility] Last Admin: 02/27/25 20:25 Dose: 400 mg Hydrocortisone (Hydrocortisone 2.5 % Rectal Cr 30 Gm Tube) 1 appl [place] Q6H PRN PRN Reason: Hemorrhoids Hydroxyzine HCl (Hydroxyzine Hcl 25 Mg Tablet) 25 mg PO Q6H PRN PRN Reason: mild anxiety Naproxen (Naproxen 500 Mg Tablet) 500 mg PO BID PRN PRN Reason: Pain (Scale Score 1-3) Nicotine Polacrilex (Nicotine Polacrilex 2 Mg Gum) 4 mg BUCCAL Q2H PRN PRN Reason: Nicotine Cravings Omeprazole (Omeprazole 40 Mg Capsule.Dr) 40 mg PO BID@0630,1630 [facility] Last Admin: 02/28/25 06:29 Dose: 40 mg Polyethylene Glycol (Polyethylene Glycol 3350 17 Gm Powd.Pack) 17 gm PO DAILY PRN PRN Reason: Constipation Polyethylene Glycol (Polyethylene Glycol 3350 17 Gm Powd.Pack) 17 gm PO DAILY [facility] Last Admin: 02/27/25 08:42 Dose: 17 gm Prazosin HCl (Prazosin Hcl 1 Mg Capsule) 1 mg PO BEDTIME [facility]; Protocol Last Admin: 02/27/25 20:26 Dose: 1 mg Risperidone (Risperidone 3 Mg Tablet) 3 mg PO BEDTIME [facility] Last Admin: 02/27/25 20:25 Dose: 3 mg Senna (Sennosides 8.6 Mg Tablet) 17.2 mg PO BEDTIME [facility] Last Admin: 02/27/25 20:26 Dose: 17.2 mg Trazodone HCl (Trazodone Hcl 50 Mg Tablet) 50 mg PO BEDTIME MRX1 PRN PRN Reason: Insomnia Last Admin: 02/27/25 20:26 Dose: 50 mg Allergies Allergies Allergy/AdvReac Type Severity Reaction Status Date / Time No Known Allergies Allergy Verified 02/18/25 07:24 [No Known Allergies*] Assessment & Plan Assessment & Plan (1) MDD (major depressive disorder), recurrent severe, without psychosis: Status: Acute Code(s): F33.2 - Major depressive disorder, recurrent severe without psychotic features (2) Anxiety: Status: Acute Code(s): F41.9 - Anxiety disorder, unspecified Plan 54 year-old female with PMHx of Parkinson's with dyskinesia, metabolic encephalopathy, constipation, ulcerative colitis, GERD, IBS, 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 Patient called 911 saying she was short of breath but here in the ED she talked about wanting to . Patient reports that about a month ago, she stopped going to her therapist due to lack of insurance; she says she does not take medications regularly, runs out of them and does not get refills and has been off of her medications for about 2 months. She says that she was doing overall good enough and that depression would come and go. They however she has been feeling more down, tired of always being in pain. Patient explained contributory factors being chronic pain which says seems to have gotten worse recently (patient names almost every part of her body as painful: headaches, joints, stomach, legs, feet...each toe). Patient reports up until a week ago, she was living on her own in her own apartment but this past week she moved into a assisted, saying she needed more support. Over these past few days she became more depressed. Once in the emergency room she says she started to think about ending it... Taking a bunch of pills... Patient explains concretely if I were home I would have done it because I had access to the pills... Here I do not have access to the pills. She reports Hx of SI but has never actually tried to; says usually the feeling passes; reports extreme anxiety since childhood; seems to endorse depressive episodes. -denies AVH or paranoid ideations; she does not know why she is prescribed risperidone -denies drug or alcohol use Formulation/clinical reasoning: Endorses depression and anxiety; has been off her medications which is likely contributory as well as chronic pain though not sure the cause; she says nothing has ever help with her pain before however agrees to start and try gabapentin. Patient with blunted affect and concrete; will seek to rule out ASD. Need collateral Hospital course: 02/21 still feeling down; still thinking of suicide but hopeful not to do it agrees to increase prozac to 40mg; also agrees to increased Gabapentin 300mg TID has not had a BM yet; says chronically has trouble pooping and has been constipated for years -agrees to Mirrilax 02/22 Patient reports that she is still depressed and still feeling suicidal though she reports SI is waning. No bowel movement. No medication side effects and agrees to titration 02/26- Constipated. Declines laxatives. Reports Miralax does not work. Discussed holistic items (prunes, coffee, prune juice) Reports current regime to be helpful. Will continue this plan. 02/27- CTP 02/28 - pretty thorough work up with no finding- will check labs/ hydration- ? syncopal - vs psychogenic Plan: CV Q 15 minute checks increase to fluoxetine ?40 mg daily famotidine 20 mg b.i.d.; patient says she has chronic GERD risperidone 3 mg q.h.s. prazosin 1 mg q.h.s. Cogentin 0.5 mg b.i.d. Increase gabapentin 300 mg t.i.d. for chronic pain (reviewed risks/side-effects) Will order H pylori antigen stool test; patient says she has had intractable GERD for a long time; has never been tested for H pylori Informed Consent: further education needed Reason for continued inpatient stay Substantial Risk for: inability to function and rapid decompensation Time Spent With Patient Time: Total time managing care of this patient today ____ minutes.
[2025-02-28] MEDS: polyethylene glycoL 3350 17 GM POWD.PACK PO (08:24)
[2025-02-28] MEDS: buPROPion HCl XL 300 MG TAB.ER.24H PO (08:24)
[2025-02-28] MEDS: Gabapentin 400 MG CAPSULE PO ×2 (08:24→16:02)
[2025-02-28] MEDS: Famotidine 20 MG TABLET PO ×2 (08:24→21:41)
[2025-02-28] MEDS: Fluticasone Propionate Nasal 16 GM SPRAY 2 SPRAY NOSTRIL-B (08:24)
[2025-02-28] MEDS: Atorvastatin Calcium 10 MG TABLET PO (08:24)
[2025-02-28] MEDS: Benztropine Mesylate 0.5 MG TABLET PO ×2 (08:24→21:41)
[2025-02-28] MEDS: FLUoxetine HCl 20 MG CAPSULE 40 MG PO (08:25)
[2025-02-28] MEDS: Acetaminophen 325 MG TABLET 650 MG PO ×2 (09:30→16:07)
[2025-02-28] MEDS: NaPROXEN 500 MG TABLET PO (11:06)
[2025-02-28] MEDS: Cyclobenzaprine HCl 10 MG TABLET PO (11:08)
[2025-02-28 17:33] LABS: MANUAL DIFF FLAG NO
[2025-02-28 17:42] LABS: Basophils Percent Auto 0.4 % (0-2); Eosinophils Absolute Auto 0.2 X10*3/uL (0.0-0.4); Eosinophils Percent Auto 2.5 % (0-4); Hematocrit 36.3 % (37.0-47.0); Hemoglobin 11.7 g/dl (12.0-16.0); Imm Gran Abs Auto 0.02 X10*3/uL (0.00-0.03); Imm Gran Pct Auto 0.3 % (0.0-0.4); Lymphocytes Absolute Auto 2.3 X10*3/uL (1.2-4.9); Lymphocytes Percent Auto 30.1 % (20-40); Mean Corpuscular HGB Conc 32.2 g/dl (31.0-35.0); Mean Corpuscular Volume 86.8 fL (80.0-98.0); Mean Platelet Volume 10.3 fL (9.4-12.3); Monocytes Absolute Auto 0.5 X10*3/uL (0.1-1.2); Monocytes Percent Auto 6.3 % (2-11); Neutrophils Absolute Auto 4.6 x10*3/uL (2.0-8.3); Neutrophils Percent Auto 60.4 % (45-73); Platelet Count 303 X10*3/uL (160-400); Red Blood Count 4.18 X10*6/uL (4.20-5.50); Red Cell Distribution Width 15.9 % (11.0-16.0); White Blood Count 7.6 X10*3/uL (4.8-10.8)
[2025-02-28 17:46] LABS: Anion Gap 15 (12-20); Blood Urea Nitrogen 18 mg/dL (9-16); Calcium 9.5 mg/dL (8.4-10.2); Carbon Dioxide 26 mmol/L (22-29); Chloride 106 mmol/L (96-108); Creatinine Clr Calc Pharmacy 80.4; Estimated Glomerular Filt Rate > 60; Glucose Random 97 mg/dL (60-115); Potassium 4.2 mmol/L (3.3-5.1); Sodium 143 mmol/L (135-145)
--- NOTE | 2025-02-28 18:54 | PM.EVENT ---
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 Pt seen and evaluated on the unit where she is resting comfortably in bed. Pt is notably difficult to understand and speaking with minimal movement of her lips. Pt also appears confused, alert and oriented to self only, and not following all commands appropriately (such as rolling onto her stomach instead of onto her back). Physical exam is noted for global though symmetric weakness of upper and lower extremities. Occasional resting tremors. No focal deficits noted. Negative pronator drift. No facial droop. No hemiparesis. Workup included CBC which was unremarkable including no leukocytosis. BMP likewise unremarkable without electrolyte abnormalities. And CTA of head negative for acute intracranial findings. Spoke to patient's nurse who was new to the pt today but indicated she thought she noticed a significant change in mentation since her shift started, sometime around 13:00 this afternoon. However, spoke to another nurse who took care of the pt a few days ago, and noted she ?mumbled? and was quite difficult to understand at that time. Given the negative workup, and PMH of pt including parkinsonism and metabolic encephalopathy, suspicion for an acute CVA is low and currently no additional workup or treatment indicated at this time. Pt is also outside of [facility] thrombolytic therapy. Will sign off for now. Please reconsult if any acute issue or need arise. Thank you for allowing us to take part in this pt's care. Time Spent With Patient Time: Total time managing care of this patient today ____ minutes.
--- NOTE | 2025-02-28 18:54 | PC.NURSE ---
Pt (s/p fall overnight) had acute onset of dizziness, confusion at 2;30pm this shift. Reporting AVH. AxO to self and place only. VSS. Provder MD Nella Ariza alerted. EKG, head CT completed. Bedside labs completed. Hospitalist evaled and cleared for stroke. XR completed this AM and PT consult in s/p fall overnight.
[2025-02-28] MEDS: risperiDONE Oral Sol 1 MG/ML SOLUTION 3 MG PO (21:40)
[2025-02-28] MEDS: Prazosin HCL 1 MG CAPSULE PO (21:41)
[2025-02-28] MEDS: Sennosides 8.6 MG TABLET 17.2 MG PO (21:41)
[2025-02-28] MEDS: Gabapentin 300 MG CAPSULE PO (21:42)
[2025-03-01] MEDS: Omeprazole 40 MG CAPSULE.DR PO ×2 (06:34→17:42)
[2025-03-01 07:54] VITALS: BP 120/79; PULSE 97; RESP 18; TEMP 36.5; O2SAT 97
[2025-03-01] MEDS: Benztropine Mesylate 0.5 MG TABLET PO ×2 (08:56→21:22)
[2025-03-01] MEDS: Atorvastatin Calcium 10 MG TABLET PO (08:56)
[2025-03-01] MEDS: buPROPion HCl XL 300 MG TAB.ER.24H PO (08:56)
[2025-03-01] MEDS: FLUoxetine HCl 20 MG CAPSULE 40 MG PO (08:56)
[2025-03-01] MEDS: Gabapentin 300 MG CAPSULE PO (08:56)
[2025-03-01] MEDS: Famotidine 20 MG TABLET PO ×2 (08:56→21:22)
[2025-03-01] MEDS: polyethylene glycoL 3350 17 GM POWD.PACK PO ×2 (09:01→09:56)
[2025-03-01] MEDS: Docusate Sodium 100 MG CAPSULE PO (09:11)
[2025-03-01] MEDS: NaPROXEN 500 MG TABLET PO (09:11)
[2025-03-01] MEDS: Fluticasone Propionate Nasal 16 GM SPRAY 2 SPRAY NOSTRIL-B (09:11)
[2025-03-01] MEDS: Loratadine 10 MG TABLET PO (12:14)
[2025-03-01] MEDS: Gabapentin 100 MG CAPSULE PO ×2 (14:15→21:22)
--- NOTE | 2025-03-01 15:45 | HO.PSYCHPN ---
Subjective Subjective Date of Service: 03/01/25 Reason For Visit: Depression Interim History: tearful during assessment. difficult to understand at times d/t mumbled speech. pt states she does not know why she is crying. discussed chronic pain. She reports she feels medications are helping with her depression. denies SI/HI. Patient reports auditory and visual hallucinations that come and go . Medication Compliance: Yes Side effects from medications: No Mental Status Exam Mental Status Exam Patient Appearance: Disheveled Patient Orientation: Person, Place, Time and Situation Level of Consciousness: Awake Patient Behavior: Cooperative and Good Eye Contact Mood Description: Sad Affect Description: Blunted Patient Cognition Impaired: Yes Ability to Follow Directions: Good Speech Pattern: Mumbled Memory Description: Episodic Impaired Hallucinations: Auditory and Visual Thought Content: positive for Linear Diagnostics Vital Signs (24Hr): Vital Signs - 24 hr 02/28/25 19:53 02/28/25 21:20 02/28/25 21:41 Temperature 98.4 F Pulse Rate 86 92 Respiratory Rate Blood Pressure 108/57 L 107/70 107/70 Pulse Oximetry 97 Oxygen Delivery Method Room Air 03/01/25 07:54 Temperature 97.7 F Pulse Rate 97 Respiratory Rate 18 Blood Pressure 120/79 Pulse Oximetry 97 Oxygen Delivery Method Room Air BMI result Body Mass Index 25.4 Labs 02/28/25 17:26 02/28/25 17:26 Labs: Laboratory Results - last 48 hr 02/28/25 17:26 WBC 7.6 RBC 4.18 L Hgb 11.7 L Hct 36.3 L MCV 86.8 MCH 28.0 MCHC 32.2 RDW 15.9 Plt Count 303 MPV 10.3 Immature Gran % (Auto) 0.3 Neut % (Auto) 60.4 Lymph % (Auto) 30.1 [place] % (Auto) 6.3 Eos % (Auto) 2.5 Baso % (Auto) 0.4 Lymph # (Auto) 2.3 [place] # (Auto) 0.5 Eos # (Auto) 0.2 Baso # (Auto) 0.0 Abs Immat Gran (auto) 0.02 Absolute Neuts (auto) 4.6 Absolute Nucleated RBC 0.000 Nucleated RBC % (auto) 0.0 Sodium 143 Potassium 4.2 Chloride 106 Carbon Dioxide 26 Anion Gap 15 BUN 18 H Creatinine 0.80 Estim Creat Clear Calc 80.4 Estimated GFR > 60 Random Glucose 97 Calcium 9.5 Imaging Radiology Impressions: ITS Impressions Chest X-Ray 02/18/25 09:58 IMPRESSION: Mild interstitial edema and bilateral pleural effusions, small to moderate volume, similar to slightly worsened since prior exam. Electronically signed by: Hamlet Stephens MD 02/18/2025 10:42 AM EDT RP Medications Medications Current Medications Acetaminophen (Acetaminophen 325 Mg Tablet) 650 mg PO Q6H PRN PRN Reason: Headache/Pain, Scale 1-10 Last Admin: 02/28/25 16:07 Dose: 650 mg Al Hydroxide/Mg Hydroxide (Magnesium Hydrox/Alum Hydrox 30 Ml Oral.Susp) 30 ml PO Q6H PRN PRN Reason: Heartburn/Nausea Atorvastatin Calcium (Atorvastatin Calcium 10 Mg Tablet) 10 mg PO DAILY [facility] Last Admin: 03/01/25 08:56 Dose: 10 mg Benztropine Mesylate (Benztropine Mesylate 0.5 Mg Tablet) 0.5 mg PO BID [facility] Last Admin: 03/01/25 08:56 Dose: 0.5 mg Bupropion HCl (Bupropion Hcl Xl 300 Mg Tab.Er.24h) 300 mg PO DAILY [facility] Last Admin: 03/01/25 08:56 Dose: 300 mg Cyclobenzaprine HCl (Cyclobenzaprine Hcl 10 Mg Tablet) 10 mg PO TID PRN PRN Reason: muscle pain or spasm Last Admin: 02/28/25 11:08 Dose: 10 mg Docusate Sodium (Docusate Sodium 100 Mg Capsule) 100 mg PO DAILY PRN PRN Reason: constipation Last Admin: 03/01/25 09:11 Dose: 100 mg Famotidine (Famotidine 20 Mg Tablet) 20 mg PO BID [facility] Last Admin: 03/01/25 08:56 Dose: 20 mg Fluoxetine HCl (Fluoxetine Hcl 20 Mg Capsule) 40 mg PO DAILY [facility] Last Admin: 03/01/25 08:56 Dose: 40 mg Fluticasone Propionate (Fluticasone Propionate Nasal 16 Gm [place]) 2 spray NOSTRIL-B DAILY [facility] Last Admin: 03/01/25 09:11 Dose: 2 spray Gabapentin (Gabapentin 100 Mg Capsule) 100 mg PO TID [facility] Last Admin: 03/01/25 14:15 Dose: 100 mg Hydrocortisone (Hydrocortisone 2.5 % Rectal Cr 30 Gm Tube) 1 appl [place] Q6H PRN PRN Reason: Hemorrhoids Hydroxyzine HCl (Hydroxyzine Hcl 25 Mg Tablet) 25 mg PO Q6H PRN PRN Reason: mild anxiety Hydroxyzine HCl (Hydroxyzine Hcl 25 Mg Tablet) 25 mg PO BEDTIME MRX1 PRN PRN Reason: Insomnia Loratadine (Loratadine 10 Mg Tablet) 10 mg PO DAILY [facility] Last Admin: 03/01/25 12:14 Dose: 10 mg Magnesium Hydroxide (Milk Of Magnesia 30 Ml Oral.Susp) 30 ml PO DAILY PRN PRN Reason: Constipation Naproxen (Naproxen 500 Mg Tablet) 500 mg PO BID PRN PRN Reason: Pain (Scale Score 1-3) Last Admin: 03/01/25 09:11 Dose: 500 mg Nicotine Polacrilex (Nicotine Polacrilex 2 Mg Gum) 4 mg BUCCAL Q2H PRN PRN Reason: Nicotine Cravings Omeprazole (Omeprazole 40 Mg Capsule.Dr) 40 mg PO BID@0630,1630 [facility] Last Admin: 03/01/25 06:34 Dose: 40 mg Ondansetron HCl (Ondansetron Odt 4 Mg Tab.Rapdis) 4 mg TRANSLINGU Q8H PRN PRN Reason: Nausea and Vomiting Polyethylene Glycol (Polyethylene Glycol 3350 17 Gm Powd.Pack) 17 gm PO DAILY PRN PRN Reason: Constipation Last Admin: 03/01/25 09:56 Dose: 17 gm Polyethylene Glycol (Polyethylene Glycol 3350 17 Gm Powd.Pack) 17 gm PO DAILY [facility] Last Admin: 03/01/25 09:01 Dose: 17 gm Prazosin HCl (Prazosin Hcl 1 Mg Capsule) 1 mg PO BEDTIME [facility]; Protocol Last Admin: 02/28/25 21:41 Dose: 1 mg Risperidone (Risperidone Oral [place] 1 Mg/Ml Solution) 3 mg PO BEDTIME [facility] Last Admin: 02/28/25 21:40 Dose: 3 mg Senna (Sennosides 8.6 Mg Tablet) 17.2 mg PO BEDTIME [facility] Last Admin: 02/28/25 21:41 Dose: 17.2 mg Allergies Allergies Allergy/AdvReac Type Severity Reaction Status Date / Time No Known Allergies Allergy Verified 02/18/25 07:24 [No Known Allergies*] Assessment & Plan Assessment & Plan (1) MDD (major depressive disorder), recurrent severe, without psychosis: Status: Acute Code(s): F33.2 - Major depressive disorder, recurrent severe without psychotic features (2) Anxiety: Status: Acute Code(s): F41.9 - Anxiety disorder, unspecified Plan 54 year-old female with PMHx of Parkinson's with dyskinesia, metabolic encephalopathy, constipation, ulcerative colitis, GERD, IBS, 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 Patient called 911 saying she was short of breath but here in the ED she talked about wanting to . Patient reports that about a month ago, she stopped going to her therapist due to lack of insurance; she says she does not take medications regularly, runs out of them and does not get refills and has been off of her medications for about 2 months. She says that she was doing overall good enough and that depression would come and go. They however she has been feeling more down, tired of always being in pain. Patient explained contributory factors being chronic pain which says seems to have gotten worse recently (patient names almost every part of her body as painful: headaches, joints, stomach, legs, feet...each toe). Patient reports up until a week ago, she was living on her own in her own apartment but this past week she moved into a intermediate, saying she needed more support. Over these past few days she became more depressed. Once in the emergency room she says she started to think about ending it... Taking a bunch of pills... Patient explains concretely if I were home I would have done it because I had access to the pills... Here I do not have access to the pills. She reports Hx of SI but has never actually tried to; says usually the feeling passes; reports extreme anxiety since childhood; seems to endorse depressive episodes. -denies AVH or paranoid ideations; she does not know why she is prescribed risperidone -denies drug or alcohol use Formulation/clinical reasoning: Endorses depression and anxiety; has been off her medications which is likely contributory as well as chronic pain though not sure the cause; she says nothing has ever help with her pain before however agrees to start and try gabapentin. Patient with blunted affect and concrete; will seek to rule out ASD. Need collateral Hospital course: 02/21 still feeling down; still thinking of suicide but hopeful not to do it agrees to increase prozac to 40mg; also agrees to increased Gabapentin 300mg TID has not had a BM yet; says chronically has trouble pooping and has been constipated for years -agrees to Mirrilax 02/22 Patient reports that she is still depressed and still feeling suicidal though she reports SI is waning. No bowel movement. No medication side effects and agrees to titration 02/26- Constipated. Declines laxatives. Reports Miralax does not work. Discussed holistic items (prunes, coffee, prune juice) Reports current regime to be helpful. Will continue this plan. 02/27- CTP 02/28 - pretty thorough work up with no finding- will check labs/ hydration- ? syncopal - vs psychogenic 03/01: tearful during assessment. difficult to understand at times d/t mumbled speech. pt states she does not know why she is crying. discussed chronic pain. She reports she feels medications are helping with her depression. denies SI/HI. Patient reports auditory and visual hallucinations that come and go . continue current tx plan. Plan: CV Q 15 minute checks increase to fluoxetine ?40 mg daily famotidine 20 mg b.i.d.; patient says she has chronic GERD risperidone 3 mg q.h.s. prazosin 1 mg q.h.s. Cogentin 0.5 mg b.i.d. Increase gabapentin 300 mg t.i.d. for chronic pain (reviewed risks/side-effects) Will order H pylori antigen stool test; patient says she has had intractable GERD for a long time; has never been tested for H pylori Patient educated on: medication risk/benefits Reason for continued inpatient stay Substantial Risk for: med/psych decompensation Time Spent With Patient Time: Total time managing care of this patient today _15___ minutes.
[2025-03-01] MEDS: Milk of Magnesia 30 ML ORAL.SUSP PO (17:51)
[2025-03-01 20:00] VITALS: BP 117/60; PULSE 105; TEMP 36.8; O2SAT 95
[2025-03-01] MEDS: risperiDONE Oral Sol 1 MG/ML SOLUTION 3 MG PO (21:21)
[2025-03-01 21:22] VITALS: BP 117/60
[2025-03-01] MEDS: Prazosin HCL 1 MG CAPSULE PO (21:22)
[2025-03-01] MEDS: Sennosides 8.6 MG TABLET 17.2 MG PO (21:22)
--- NOTE | 2025-03-01 21:43 | P.PNPSI_ITS ---
Subjective Subjective Date of Service: 02/25/25 Reason For Visit: Depression Interim History: late entry note for pt seen 02/25; discussed with team no change in presentation; still depressed, still w/ some SI. Tried to discuss etiology of depression which she seems to say was sudden and did not have anything to do w/ moving into [facility] Mental Status Exam Mental Status Exam Narrative: Pt is alert and oriented; behavior is cooperative, calm; patient is not in distress; dressed in casual attire with unkempt hair, glasses, appears older than chronological age, adequate hygiene; mood is described as still depressed and affect blunted; eye contact a little avoidant; Speech is initially a little latent but then becomes quite talkative, even verbose; otherwise normal rate, volume and prosody; some psychomotor retardation present; thought process is goal directed, concrete; Thought content is on dealing with pain; no delusional ideations expressed; still with some SI; no HI. Denies AVH and there is no evidence of perceptual disturbance. Patients insight and judgment impaired Diagnostics Vital Signs (24Hr): Vital Signs - 24 hr 03/01/25 07:54 03/01/25 20:00 03/01/25 21:22 Temperature 97.7 F 98.2 F Pulse Rate 97 105 H Respiratory Rate 18 Blood Pressure 120/79 117/60 117/60 Pulse Oximetry 97 95 Oxygen Delivery Method Room Air Room Air BMI result Body Mass Index 25.4 Labs 02/28/25 17:26 02/28/25 17:26 Labs: Laboratory Results - last 48 hr 02/28/25 17:26 WBC 7.6 RBC 4.18 L Hgb 11.7 L Hct 36.3 L MCV 86.8 MCH 28.0 MCHC 32.2 RDW 15.9 Plt Count 303 MPV 10.3 Immature Gran % (Auto) 0.3 Neut % (Auto) 60.4 Lymph % (Auto) 30.1 [place] % (Auto) 6.3 Eos % (Auto) 2.5 Baso % (Auto) 0.4 Lymph # (Auto) 2.3 [place] # (Auto) 0.5 Eos # (Auto) 0.2 Baso # (Auto) 0.0 Abs Immat Gran (auto) 0.02 Absolute Neuts (auto) 4.6 Absolute Nucleated RBC 0.000 Nucleated RBC % (auto) 0.0 Sodium 143 Potassium 4.2 Chloride 106 Carbon Dioxide 26 Anion Gap 15 BUN 18 H Creatinine 0.80 Estim Creat Clear Calc 80.4 Estimated GFR > 60 Random Glucose 97 Calcium 9.5 Imaging Radiology Impressions: ITS Impressions Chest X-Ray 02/18/25 09:58 IMPRESSION: Mild interstitial edema and bilateral pleural effusions, small to moderate volume, similar to slightly worsened since prior exam. Electronically signed by: Hamlet Stephens MD 02/18/2025 10:42 AM EDT Medications Medications Current Medications Acetaminophen (Acetaminophen 325 Mg Tablet) 650 mg PO Q6H PRN PRN Reason: Headache/Pain, Scale 1-10 Last Admin: 02/28/25 16:07 Dose: 650 mg Al Hydroxide/Mg Hydroxide (Magnesium Hydrox/Alum Hydrox 30 Ml Oral.Susp) 30 ml PO Q6H PRN PRN Reason: Heartburn/Nausea Atorvastatin Calcium (Atorvastatin Calcium 10 Mg Tablet) 10 mg PO DAILY [facility] Last Admin: 03/01/25 08:56 Dose: 10 mg Benztropine Mesylate (Benztropine Mesylate 0.5 Mg Tablet) 0.5 mg PO BID [facility] Last Admin: 03/01/25 21:22 Dose: 0.5 mg Bupropion HCl (Bupropion Hcl Xl 300 Mg Tab.Er.24h) 300 mg PO DAILY [facility] Last Admin: 03/01/25 08:56 Dose: 300 mg Cyclobenzaprine HCl (Cyclobenzaprine Hcl 10 Mg Tablet) 10 mg PO TID PRN PRN Reason: muscle pain or spasm Last Admin: 02/28/25 11:08 Dose: 10 mg Docusate Sodium (Docusate Sodium 100 Mg Capsule) 100 mg PO DAILY PRN PRN Reason: constipation Last Admin: 03/01/25 09:11 Dose: 100 mg Famotidine (Famotidine 20 Mg Tablet) 20 mg PO BID [facility] Last Admin: 03/01/25 21:22 Dose: 20 mg Fluoxetine HCl (Fluoxetine Hcl 20 Mg Capsule) 40 mg PO DAILY [facility] Last Admin: 03/01/25 08:56 Dose: 40 mg Fluticasone Propionate (Fluticasone Propionate Nasal 16 Gm [place]) 2 spray NOSTRIL-B DAILY [facility] Last Admin: 03/01/25 09:11 Dose: 2 spray Gabapentin (Gabapentin 100 Mg Capsule) 100 mg PO TID [facility] Last Admin: 03/01/25 21:22 Dose: 100 mg Hydrocortisone (Hydrocortisone 2.5 % Rectal Cr 30 Gm Tube) 1 appl [place] Q6H PRN PRN Reason: Hemorrhoids Hydroxyzine HCl (Hydroxyzine Hcl 25 Mg Tablet) 25 mg PO Q6H PRN PRN Reason: mild anxiety Hydroxyzine HCl (Hydroxyzine Hcl 25 Mg Tablet) 25 mg PO BEDTIME MRX1 PRN PRN Reason: Insomnia Loratadine (Loratadine 10 Mg Tablet) 10 mg PO DAILY [facility] Last Admin: 03/01/25 12:14 Dose: 10 mg Magnesium Hydroxide (Milk Of Magnesia 30 Ml Oral.Susp) 30 ml PO DAILY PRN PRN Reason: Constipation Last Admin: 03/01/25 17:51 Dose: 30 ml Naproxen (Naproxen 500 Mg Tablet) 500 mg PO BID PRN PRN Reason: Pain (Scale Score 1-3) Last Admin: 03/01/25 09:11 Dose: 500 mg Nicotine Polacrilex (Nicotine Polacrilex 2 Mg Gum) 4 mg BUCCAL Q2H PRN PRN Reason: Nicotine Cravings Omeprazole (Omeprazole 40 Mg Capsule.Dr) 40 mg PO BID@0630,1630 [facility] Last Admin: 03/01/25 17:42 Dose: 40 mg Ondansetron HCl (Ondansetron Odt 4 Mg Tab.Rapdis) 4 mg TRANSLINGU Q8H PRN PRN Reason: Nausea and Vomiting Polyethylene Glycol (Polyethylene Glycol 3350 17 Gm Powd.Pack) 17 gm PO DAILY PRN PRN Reason: Constipation Last Admin: 03/01/25 09:56 Dose: 17 gm Polyethylene Glycol (Polyethylene Glycol 3350 17 Gm Powd.Pack) 17 gm PO DAILY [facility] Last Admin: 03/01/25 09:01 Dose: 17 gm Prazosin HCl (Prazosin Hcl 1 Mg Capsule) 1 mg PO BEDTIME [facility]; Protocol Last Admin: 03/01/25 21:22 Dose: 1 mg Risperidone (Risperidone Oral Lindsay 1 Mg/Ml Solution) 3 mg PO BEDTIME [facility] Last Admin: 03/01/25 21:21 Dose: 3 mg Senna (Sennosides 8.6 Mg Tablet) 17.2 mg PO BEDTIME [facility] Last Admin: 03/01/25 21:22 Dose: 17.2 mg Allergies Allergies Allergy/AdvReac Type Severity Reaction Status Date / Time No Known Allergies Allergy Verified 02/18/25 07:24 [No Known Allergies*] Assessment & Plan Assessment & Plan (1) MDD (major depressive disorder), recurrent severe, without psychosis: Status: Acute Code(s): F33.2 - Major depressive disorder, recurrent severe without psychotic features (2) Anxiety: Status: Acute Code(s): F41.9 - Anxiety disorder, unspecified Plan 54 year-old female with PMHx of Parkinson's with dyskinesia, metabolic encephalopathy, constipation, ulcerative colitis, GERD, IBS, 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 Patient called 911 saying she was short of breath but here in the ED she talked about wanting to . Patient reports that about a month ago, she stopped going to her therapist due to lack of insurance; she says she does not take medications regularly, runs out of them and does not get refills and has been off of her medications for about 2 months. She says that she was doing overall good enough and that depression would come and go. They however she has been feeling more down, tired of always being in pain. Patient explained contributory factors being chronic pain which says seems to have gotten worse recently (patient names almost every part of her body as painful: headaches, joints, stomach, legs, feet...each toe). Patient reports up until a week ago, she was living on her own in her own apartment but this past week she moved into a [facility], saying she needed more support. Over these past few days she became more depressed. Once in the emergency room she says she started to think about ending it... Taking a bunch of pills... Patient explains concretely if I were home I would have done it because I had access to the pills... Here I do not have access to the pills. She reports Hx of SI but has never actually tried to; says usually the feeling passes; reports extreme anxiety since childhood; seems to endorse depressive episodes. -denies AVH or paranoid ideations; she does not know why she is prescribed risperidone -denies drug or alcohol use Formulation/clinical reasoning: Endorses depression and anxiety; has been off her medications which is likely contributory as well as chronic pain though not sure the cause; she says nothing has ever help with her pain before however agrees to start and try gabapentin. Patient with blunted affect and concrete; will seek to rule out ASD. Need collateral Hospital course: 02/21 still feeling down; still thinking of suicide but hopeful not to do it agrees to increase prozac to 40mg; also agrees to increased Gabapentin 300mg TID has not had a BM yet; says chronically has trouble pooping and has been constipated for years -agrees to Mirrilax 02/22 Patient reports that she is still depressed and still feeling suicidal though she reports SI is waning. No bowel movement. No medication side effects and agrees to titration 02/23 says still depressed and still with some SI remaining; agrees to increasing buproprion -still constipated 02/24 says still depressed; still with some SI; talked about anxiety as well. pt says no change in chronic body pain with gabapentin; agrees to titrate 02/25 no change in presentation; still depressed, still w/ some SI. Tried to discuss etiology of depression which she seems to say was sudden and did not have anything to do w/ moving into [facility] Plan: CV Q 15 minute checks increase to fluoxetine ?40 mg daily famotidine 20 mg b.i.d.; patient says she has chronic GERD risperidone 3 mg q.h.s. prazosin 1 mg q.h.s. Cogentin 0.5 mg b.i.d. Increase gabapentin 400 mg t.i.d. for chronic pain (reviewed risks/side-effects) Will order H pylori antigen stool test; patient says she has had intractable GERD for a long time; has never been tested for H pylori Patient educated on: diagnosis and medication risk/benefits Informed Consent: understands and further education needed Reason for continued inpatient stay Substantial Risk for: inability to function Time Spent With Patient Time: Total time managing care of this patient today ____ minutes.
[2025-03-02] MEDS: hydrOXYzine HCL 25 MG TABLET PO (01:14)
[2025-03-02 08:00] VITALS: BP 151/76; PULSE 117; TEMP 36.6; O2SAT 98
[2025-03-02] MEDS: FLUoxetine HCl 20 MG CAPSULE 40 MG PO (09:10)
[2025-03-02] MEDS: Loratadine 10 MG TABLET PO (09:10)
[2025-03-02] MEDS: Omeprazole 40 MG CAPSULE.DR PO ×2 (09:10→17:04)
[2025-03-02] MEDS: Famotidine 20 MG TABLET PO ×2 (09:10→20:34)
[2025-03-02] MEDS: Gabapentin 100 MG CAPSULE PO ×3 (09:11→20:34)
[2025-03-02] MEDS: buPROPion HCl XL 300 MG TAB.ER.24H PO (09:11)
[2025-03-02] MEDS: Fluticasone Propionate Nasal 16 GM SPRAY 2 SPRAY NOSTRIL-B (09:11)
[2025-03-02] MEDS: Atorvastatin Calcium 10 MG TABLET PO (09:11)
[2025-03-02] MEDS: Benztropine Mesylate 0.5 MG TABLET PO ×2 (09:11→20:34)
--- NOTE | 2025-03-02 10:14 | P.PNPSI_ITS ---
Subjective Subjective Date of Service: 03/02/25 Reason For Visit: Depression Interim History: Met with patient; discussed with team; reviewed chart Patient had a tough weekend. There was some concern that she slurred her speech was confused or dizzy. Head CT negative. Today patient says she wants to that she is so sad.. And feels so unhappy. Patient is tearful and endorses SI. She can be hard to understand however when headline writer mentions this, she apologizes, slows down her speech and is understandable. She says she has pain everywhere from her head to her toes and everywhere in-between. She thinks maybe it was a little better last week and headline writer mentioned that her gabapentin had been significantly lowered over the weekend possibly out of concern for patient's dizziness. Patient says she has no formal diagnosis for pain. Ssis Developer discussed medication regimen with patient who agreed to discontinue Prozac, discontinue Wellbutrin, which have not seemed to help and instead start on Cymbalta which can help with both anxiety, depression as well as pain. Patient shuffling around and now reporting falls; headline writer inquired and she agreed she was not falling last week but says it is only change now due to the increase in pain. Neuro consult placed as well Mental Status Exam Mental Status Exam Narrative: Pt is alert and oriented; behavior is tearful, emotionally upset, lying in bed; dressed in casual attire with unkempt hair, glasses, appears older than chronological age, adequate hygiene; mood is described as so sad and affect congruent, tearful; eye contact a little avoidant; Speech is mumbled but when she slows down able to articulate; normal volume; some of both psychomotor retardation/agitation present; thought process is goal directed, concrete; Thought content is on dealing with pain and depression; no delusional ideations expressed; yes to SI; no HI. Says some AH. Patients insight and judgment impaired Diagnostics Vital Signs (24Hr): Vital Signs - 24 hr 03/01/25 20:00 03/01/25 21:22 03/02/25 08:00 Temperature 98.2 F 97.8 F Pulse Rate 105 H 117 H Blood Pressure 117/60 117/60 151/76 H Pulse Oximetry 95 98 Oxygen Delivery Method Room Air Room Air BMI result Body Mass Index 25.4 Labs 02/28/25 17:26 02/28/25 17:26 Labs: Laboratory Results - last 48 hr 02/28/25 17:26 WBC 7.6 RBC 4.18 L Hgb 11.7 L Hct 36.3 L MCV 86.8 MCH 28.0 MCHC 32.2 RDW 15.9 Plt Count 303 MPV 10.3 Immature Gran % (Auto) 0.3 Neut % (Auto) 60.4 Lymph % (Auto) 30.1 [place] % (Auto) 6.3 Eos % (Auto) 2.5 Baso % (Auto) 0.4 Lymph # (Auto) 2.3 [place] # (Auto) 0.5 Eos # (Auto) 0.2 Baso # (Auto) 0.0 Abs Immat Gran (auto) 0.02 Absolute Neuts (auto) 4.6 Absolute Nucleated RBC 0.000 Nucleated RBC % (auto) 0.0 Sodium 143 Potassium 4.2 Chloride 106 Carbon Dioxide 26 Anion Gap 15 BUN 18 H Creatinine 0.80 Estim Creat Clear Calc 80.4 Estimated GFR > 60 Random Glucose 97 Calcium 9.5 Imaging Radiology Impressions: ITS Impressions Chest X-Ray 02/18/25 09:58 IMPRESSION: Mild interstitial edema and bilateral pleural effusions, small to moderate volume, similar to slightly worsened since prior exam. Electronically signed by: Hamlet Stephens MD 02/18/2025 10:42 AM EDT Medications Medications Current Medications Acetaminophen (Acetaminophen 325 Mg Tablet) 650 mg PO Q6H PRN PRN Reason: Headache/Pain, Scale 1-10 Last Admin: 02/28/25 16:07 Dose: 650 mg Al Hydroxide/Mg Hydroxide (Magnesium Hydrox/Alum Hydrox 30 Ml Oral.Susp) 30 ml PO Q6H PRN PRN Reason: Heartburn/Nausea Atorvastatin Calcium (Atorvastatin Calcium 10 Mg Tablet) 10 mg PO DAILY [facility] Last Admin: 03/02/25 09:11 Dose: 10 mg Benztropine Mesylate (Benztropine Mesylate 0.5 Mg Tablet) 0.5 mg PO BID [facility] Last Admin: 03/02/25 09:11 Dose: 0.5 mg Bupropion HCl (Bupropion Hcl Xl 300 Mg Tab.Er.24h) 300 mg PO DAILY [facility] Last Admin: 03/02/25 09:11 Dose: 300 mg Cyclobenzaprine HCl (Cyclobenzaprine Hcl 10 Mg Tablet) 10 mg PO TID PRN PRN Reason: muscle pain or spasm Last Admin: 02/28/25 11:08 Dose: 10 mg Docusate Sodium (Docusate Sodium 100 Mg Capsule) 100 mg PO DAILY PRN PRN Reason: constipation Last Admin: 03/01/25 09:11 Dose: 100 mg Famotidine (Famotidine 20 Mg Tablet) 20 mg PO BID [facility] Last Admin: 03/02/25 09:10 Dose: 20 mg Fluoxetine HCl (Fluoxetine Hcl 20 Mg Capsule) 40 mg PO DAILY [facility] Last Admin: 03/02/25 09:10 Dose: 40 mg Fluticasone Propionate (Fluticasone Propionate Nasal 16 Gm [place]) 2 spray NOSTRIL-B DAILY [facility] Last Admin: 03/02/25 09:11 Dose: 2 spray Gabapentin (Gabapentin 100 Mg Capsule) 100 mg PO TID [facility] Last Admin: 03/02/25 09:11 Dose: 100 mg Hydrocortisone (Hydrocortisone 2.5 % Rectal Cr 30 Gm Tube) 1 appl [place] Q6H PRN PRN Reason: Hemorrhoids Hydroxyzine HCl (Hydroxyzine Hcl 25 Mg Tablet) 25 mg PO Q6H PRN PRN Reason: mild anxiety Hydroxyzine HCl (Hydroxyzine Hcl 25 Mg Tablet) 25 mg PO BEDTIME MRX1 PRN PRN Reason: Insomnia Last Admin: 03/02/25 01:14 Dose: 25 mg Loratadine (Loratadine 10 Mg Tablet) 10 mg PO DAILY [facility] Last Admin: 03/02/25 09:10 Dose: 10 mg Magnesium Hydroxide (Milk Of Magnesia 30 Ml Oral.Susp) 30 ml PO DAILY PRN PRN Reason: Constipation Last Admin: 03/01/25 17:51 Dose: 30 ml Naproxen (Naproxen 500 Mg Tablet) 500 mg PO BID PRN PRN Reason: Pain (Scale Score 1-3) Last Admin: 03/01/25 09:11 Dose: 500 mg Nicotine Polacrilex (Nicotine Polacrilex 2 Mg Gum) 4 mg BUCCAL Q2H PRN PRN Reason: Nicotine Cravings Omeprazole (Omeprazole 40 Mg Capsule.Dr) 40 mg PO BID@0630,1630 [facility] Last Admin: 03/02/25 09:10 Dose: 40 mg Ondansetron HCl (Ondansetron Odt 4 Mg Tab.Rapdis) 4 mg TRANSLINGU Q8H PRN PRN Reason: Nausea and Vomiting Polyethylene Glycol (Polyethylene Glycol 3350 17 Gm Powd.Pack) 17 gm PO DAILY PRN PRN Reason: Constipation Last Admin: 03/01/25 09:56 Dose: 17 gm Polyethylene Glycol (Polyethylene Glycol 3350 17 Gm Powd.Pack) 17 gm PO DAILY [facility] Last Admin: 03/02/25 09:18 Dose: Not Given Prazosin HCl (Prazosin Hcl 1 Mg Capsule) 1 mg PO BEDTIME [facility]; Protocol Last Admin: 03/01/25 21:22 Dose: 1 mg Risperidone (Risperidone Oral [place] 1 Mg/Ml Solution) 3 mg PO BEDTIME [facility] Last Admin: 03/01/25 21:21 Dose: 3 mg Senna (Sennosides 8.6 Mg Tablet) 17.2 mg PO BEDTIME [facility] Last Admin: 03/01/25 21:22 Dose: 17.2 mg Allergies Allergies Allergy/AdvReac Type Severity Reaction Status Date / Time No Known Allergies Allergy Verified 02/18/25 07:24 [No Known Allergies*] Assessment & Plan Assessment & Plan (1) MDD (major depressive disorder), recurrent severe, without psychosis: Status: Acute Code(s): F33.2 - Major depressive disorder, recurrent severe without psychotic features (2) Anxiety: Status: Acute Code(s): F41.9 - Anxiety disorder, unspecified Plan 54 year-old female with PMHx of Parkinson's with dyskinesia, metabolic encephalopathy, constipation, ulcerative colitis, GERD, IBS, 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 Patient called 911 saying she was short of breath but here in the ED she talked about wanting to . Patient reports that about a month ago, she stopped going to her therapist due to lack of insurance; she says she does not take medications regularly, runs out of them and does not get refills and has been off of her medications for about 2 months. She says that she was doing overall good enough and that depression would come and go. They however she has been feeling more down, tired of always being in pain. Patient explained contributory factors being chronic pain which says seems to have gotten worse recently (patient names almost every part of her body as painful: headaches, joints, stomach, legs, feet...each toe). Patient reports up until a week ago, she was living on her own in her own apartment but this past week she moved into a alf, saying she needed more support. Over these past few days she became more depressed. Once in the emergency room she says she started to think about ending it... Taking a bunch of pills... Patient explains concretely if I were home I would have done it because I had access to the pills... Here I do not have access to the pills. She reports Hx of SI but has never actually tried to; says usually the feeling passes; reports extreme anxiety since childhood; seems to endorse depressive episodes. -denies AVH or paranoid ideations; she does not know why she is prescribed risperidone -denies drug or alcohol use Formulation/clinical reasoning: Endorses depression and anxiety; has been off her medications which is likely contributory as well as chronic pain though not sure the cause; she says nothing has ever help with her pain before however agrees to start and try gabapentin. Patient with blunted affect and concrete; will seek to rule out ASD. Need collateral Hospital course: 02/21 still feeling down; still thinking of suicide but hopeful not to do it agrees to increase prozac to 40mg; also agrees to increased Gabapentin 300mg TID has not had a BM yet; says chronically has trouble pooping and has been constipated for years -agrees to Mirrilax 02/22 Patient reports that she is still depressed and still feeling suicidal though she reports SI is waning. No bowel movement. No medication side effects and agrees to titration 02/23 says still depressed and still with some SI remaining; agrees to increasing buproprion -still constipated 02/24 says still depressed; still with some SI; talked about anxiety as well. pt says no change in chronic body pain with gabapentin; agrees to titrate 02/25 no change in presentation; still depressed, still w/ some SI. Tried to discuss etiology of depression which she seems to say was sudden and did not have anything to do w/ moving into alf 02/[address] IMPRESSION:. No acute intracranial findings. 03/02 Patient had a tough weekend. There was some concern that she slurred her speech was confused or dizzy. Head CT negative. Today patient says she wants to that she is so sad.. And feels so unhappy. Patient is tearful and endorses SI. She can be hard to understand however when headline writer mentions this, she apologizes, slows down her speech and is understandable. She says she has pain everywhere from her head to her toes and everywhere in-between. She thinks maybe it was a little better last week and headline writer mentioned that her gabapentin had been significantly lowered over the weekend possibly out of concern for patient's dizziness. Patient says she has no formal diagnosis for pain. Ssis Developer discussed medication regimen with patient who agreed to discontinue Prozac, discontinue Wellbutrin, which have not seemed to help and instead start on Cymbalta which can help with both anxiety, depression as well as pain. Patient shuffling around and now reporting falls; headline writer inquired and she agreed she was not falling last week but says it is only change now due to the increase in pain. Neuro consult placed as well -will consider increasing gabapentin again -add cyclobenzaprine which she has been on in the past -reportedly patient has history of Parkinson's Plan: CV Q 15 minute checks Cyclobenzaprine 10 mg t.i.d. p.r.n.; has been on as high doses 20 mg Start Cymbalta 30 mg today and then 60 mg tomorrow (replacing Prozac 40 mg) DC fluoxetine DC Wellbutrin famotidine 20 mg b.i.d.; patient says she has chronic GERD risperidone 3 mg q.h.s. prazosin 1 mg q.h.s. Cogentin 0.5 mg b.i.d. gabapentin 100 mg t.i.d. for chronic pain (reviewed risks/side-effects) Will order H pylori antigen stool test; patient says she has had intractable GERD for a long time; has never been tested for H pylori Patient educated on: diagnosis, medication risk/benefits and medical condition Informed Consent: understands, does not understand and further education needed Reason for continued inpatient stay Substantial Risk for: inability to function Time Spent With Patient Time: Total time managing care of this patient today ____ minutes.
[2025-03-02] MEDS: DULoxetine HCl 30 MG CAPSULE.DR PO (17:03)
[2025-03-02] MEDS: Cyclobenzaprine HCl 10 MG TABLET PO (17:03)
[2025-03-02 20:00] VITALS: BP 128/79; PULSE 83; TEMP 36.4; O2SAT 98
[2025-03-02] MEDS: Sennosides 8.6 MG TABLET 17.2 MG PO (20:34)
[2025-03-02] MEDS: Prazosin HCL 1 MG CAPSULE PO (20:35)
[2025-03-02] MEDS: risperiDONE Oral Sol 1 MG/ML SOLUTION 3 MG PO (20:35)
[2025-03-03 07:51] VITALS: BP 123/63; PULSE 103; TEMP 36.9; O2SAT 94
--- NOTE | 2025-03-03 08:27 | HO.PSYCHPN ---
Subjective Subjective Date of Service: 03/03/25 Reason For Visit: Depression Interim History: Patient; discussed with team mood little better today; tolerating cymbalta 60mg and discussed med changes again. She said that Said due to her anxiety she has been a little snippy with people which she says she has talked to her therapist about Regarding SI, she says it is still remains Patient mentioned visual hallucinations; she explains to medical underwriter that says seeing like a painting on the wall, like people walking around... However with further inquiry, this only occurs when she is waking up from sleep and not otherwise. Regarding body pain, she says it is actually a little better. She agrees to retry Flexeril to see if that is helpful. Patient complained of dysuria to nurse and asked for UA but was specific and wanting to be straight cathed. Patient had a significant volume of urine removed and is not sure if this is due to urinary retention or if patient is intentionally avoiding urinating; patient told medical underwriter she has intermittent history of urinary retention.. She also has been complaining about constipation however has been refusing laxatives/stool softeners. Respiratory Assistant discussed this and patient says she has long history of constipation and is worry about taking medications that will cause copious diarrhea, which happened once before when she laxatives. She agreed however that constipation needs to be relieved and said she would take medications. UA by straight cath at pt's request urinary retention Mental Status Exam Mental Status Exam Narrative: Pt is alert and oriented; behavior is tearful, emotionally upset, lying in bed; dressed in casual attire with unkempt hair, glasses, appears older than chronological age, adequate hygiene; mood is described as depressed... A little better and affect congruent, tearful; eye contact a little avoidant; Speech is mumbled but when she slows down able to articulate; normal volume; some of both psychomotor retardation/agitation present; thought process is goal directed, concrete; Thought content is on dealing with pain and depression; no delusional ideations expressed; yes to SI; no HI. Says some VH. Patients insight and judgment impaired Diagnostics Vital Signs (24Hr): Vital Signs - 24 hr 03/02/25 20:00 03/03/25 07:51 Temperature 97.6 F 98.5 F Pulse Rate 83 103 H Blood Pressure 128/79 123/63 Pulse Oximetry 98 94 Oxygen Delivery Method Room Air Room Air BMI result Body Mass Index 25.4 Labs 02/28/25 17:26 02/28/25 17:26 Imaging Radiology Impressions: ITS Impressions Chest X-Ray 02/18/25 09:58 IMPRESSION: Mild interstitial edema and bilateral pleural effusions, small to moderate volume, similar to slightly worsened since prior exam. Electronically signed by: Hamlet Stephens MD 02/18/2025 10:42 AM EDT Medications Medications Current Medications Acetaminophen (Acetaminophen 325 Mg Tablet) 650 mg PO Q6H PRN PRN Reason: Headache/Pain, Scale 1-10 Last Admin: 02/28/25 16:07 Dose: 650 mg Al Hydroxide/Mg Hydroxide (Magnesium Hydrox/Alum Hydrox 30 Ml Oral.Susp) 30 ml PO Q6H PRN PRN Reason: Heartburn/Nausea Atorvastatin Calcium (Atorvastatin Calcium 10 Mg Tablet) 10 mg PO DAILY [facility] Last Admin: 03/02/25 09:11 Dose: 10 mg Benztropine Mesylate (Benztropine Mesylate 0.5 Mg Tablet) 0.5 mg PO BID [facility] Last Admin: 03/02/25 20:34 Dose: 0.5 mg Cyclobenzaprine HCl (Cyclobenzaprine Hcl 10 Mg Tablet) 10 mg PO TID PRN PRN Reason: Muscle Spasm/aches Docusate Sodium (Docusate Sodium 100 Mg Capsule) 100 mg PO DAILY PRN PRN Reason: constipation Last Admin: 03/01/25 09:11 Dose: 100 mg Duloxetine HCl (Duloxetine Hcl 60 Mg Capsule.Dr) 60 mg PO DAILY [facility] Famotidine (Famotidine 20 Mg Tablet) 20 mg PO BID [facility] Last Admin: 03/02/25 20:34 Dose: 20 mg Fluticasone Propionate (Fluticasone Propionate Nasal 16 Gm [place]) 2 spray NOSTRIL-B DAILY [facility] Last Admin: 03/02/25 09:11 Dose: 2 spray Gabapentin (Gabapentin 100 Mg Capsule) 100 mg PO TID [facility] Last Admin: 03/02/25 20:34 Dose: 100 mg Hydrocortisone (Hydrocortisone 2.5 % Rectal Cr 30 Gm Tube) 1 appl [place] Q6H PRN PRN Reason: Hemorrhoids Hydroxyzine HCl (Hydroxyzine Hcl 25 Mg Tablet) 25 mg PO Q6H PRN PRN Reason: mild anxiety Hydroxyzine HCl (Hydroxyzine Hcl 25 Mg Tablet) 25 mg PO BEDTIME MRX1 PRN PRN Reason: Insomnia Last Admin: 03/02/25 01:14 Dose: 25 mg Loratadine (Loratadine 10 Mg Tablet) 10 mg PO DAILY [facility] Last Admin: 03/02/25 09:10 Dose: 10 mg Magnesium Hydroxide (Milk Of Magnesia 30 Ml Oral.Susp) 30 ml PO DAILY PRN PRN Reason: Constipation Last Admin: 03/01/25 17:51 Dose: 30 ml Naproxen (Naproxen 500 Mg Tablet) 500 mg PO BID PRN PRN Reason: Pain (Scale Score 1-3) Last Admin: 03/01/25 09:11 Dose: 500 mg Nicotine Polacrilex (Nicotine Polacrilex 2 Mg Gum) 4 mg BUCCAL Q2H PRN PRN Reason: Nicotine Cravings Omeprazole (Omeprazole 40 Mg Capsule.Dr) 40 mg PO BID@0630,1630 [facility] Last Admin: 03/03/25 06:28 Dose: Not Given Ondansetron HCl (Ondansetron Odt 4 Mg Tab.Rapdis) 4 mg TRANSLINGU Q8H PRN PRN Reason: Nausea and Vomiting Polyethylene Glycol (Polyethylene Glycol 3350 17 Gm Powd.Pack) 17 gm PO DAILY PRN PRN Reason: Constipation Last Admin: 03/01/25 09:56 Dose: 17 gm Polyethylene Glycol (Polyethylene Glycol 3350 17 Gm Powd.Pack) 17 gm PO DAILY [facility] Last Admin: 03/02/25 09:18 Dose: Not Given Prazosin HCl (Prazosin Hcl 1 Mg Capsule) 1 mg PO BEDTIME SYMONE; Protocol Last Admin: 03/02/25 20:35 Dose: 1 mg Risperidone (Risperidone Oral Lindsay 1 Mg/Ml Solution) 3 mg PO BEDTIME [facility] Last Admin: 03/02/25 20:35 Dose: 3 mg Senna (Sennosides 8.6 Mg Tablet) 17.2 mg PO BEDTIME [facility] Last Admin: 03/02/25 20:34 Dose: 17.2 mg Allergies Allergies Allergy/AdvReac Type Severity Reaction Status Date / Time No Known Allergies Allergy Verified 02/18/25 07:24 [No Known Allergies*] Assessment & Plan Assessment & Plan (1) MDD (major depressive disorder), recurrent severe, without psychosis: Status: Acute Code(s): F33.2 - Major depressive disorder, recurrent severe without psychotic features (2) Anxiety: Status: Acute Code(s): F41.9 - Anxiety disorder, unspecified Plan 54 year-old female with PMHx of Parkinson's with dyskinesia, metabolic encephalopathy, constipation, ulcerative colitis, GERD, IBS, 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 Patient called 911 saying she was short of breath but here in the ED she talked about wanting to . Patient reports that about a month ago, she stopped going to her therapist due to lack of insurance; she says she does not take medications regularly, runs out of them and does not get refills and has been off of her medications for about 2 months. She says that she was doing overall good enough and that depression would come and go. They however she has been feeling more down, tired of always being in pain. Patient explained contributory factors being chronic pain which says seems to have gotten worse recently (patient names almost every part of her body as painful: headaches, joints, stomach, legs, feet...each toe). Patient reports up until a week ago, she was living on her own in her own apartment but this past week she moved into a long-term, saying she needed more support. Over these past few days she became more depressed. Once in the emergency room she says she started to think about ending it... Taking a bunch of pills... Patient explains concretely if I were home I would have done it because I had access to the pills... Here I do not have access to the pills. She reports Hx of SI but has never actually tried to; says usually the feeling passes; reports extreme anxiety since childhood; seems to endorse depressive episodes. -denies AVH or paranoid ideations; she does not know why she is prescribed risperidone -denies drug or alcohol use Formulation/clinical reasoning: Endorses depression and anxiety; has been off her medications which is likely contributory as well as chronic pain though not sure the cause; she says nothing has ever help with her pain before however agrees to start and try gabapentin. Patient with blunted affect and concrete; will seek to rule out ASD. Need collateral Hospital course: 02/21 still feeling down; still thinking of suicide but hopeful not to do it agrees to increase prozac to 40mg; also agrees to increased Gabapentin 300mg TID has not had a BM yet; says chronically has trouble pooping and has been constipated for years -agrees to Mirrilax 02/22 Patient reports that she is still depressed and still feeling suicidal though she reports SI is waning. No bowel movement. No medication side effects and agrees to titration 02/23 says still depressed and still with some SI remaining; agrees to increasing buproprion -still constipated 02/24 says still depressed; still with some SI; talked about anxiety as well. pt says no change in chronic body pain with gabapentin; agrees to titrate 02/25 no change in presentation; still depressed, still w/ some SI. Tried to discuss etiology of depression which she seems to say was sudden and did not have anything to do w/ moving into long-term 02/[address] IMPRESSION:. No acute intracranial findings. 03/02 Patient had a tough weekend. There was some concern that she slurred her speech was confused or dizzy. Head CT negative. Today patient says she wants to that she is so sad.. And feels so unhappy. Patient is tearful and endorses SI. She can be hard to understand however when medical underwriter mentions this, she apologizes, slows down her speech and is understandable. She says she has pain everywhere from her head to her toes and everywhere in-between. She thinks maybe it was a little better last week and medical underwriter mentioned that her gabapentin had been significantly lowered over the weekend possibly out of concern for patient's dizziness. Patient says she has no formal diagnosis for pain. Respiratory Assistant discussed medication regimen with patient who agreed to discontinue Prozac, discontinue Wellbutrin, which have not seemed to help and instead start on Cymbalta which can help with both anxiety, depression as well as pain. Patient shuffling around and now reporting falls; medical underwriter inquired and she agreed she was not falling last week but says it is only change now due to the increase in pain. At this point, changes seem more due to behaviors rather than organic. Given that patient has a history of Parkinson's and for some reason a pain syndrome that seems undiagnosed, Neuro consult placed as well -will consider increasing gabapentin again -add cyclobenzaprine which she has been on in the past -reportedly patient has history of Parkinson's 5/ Regarding SI, she says it is still remains; however, mood little better today; tolerating cymbalta 60mg and discussed med changes again. She said that Said due to her anxiety she has been a little snippy with people which she says she has talked to her therapist about Patient mentioned visual hallucinations; she explains to medical underwriter that says seeing like a painting on the wall, like people walking around... However with further inquiry, this only occurs when she is waking up from sleep and not otherwise. lasting floorworker discussed with brother who says that this sounds like behavioral episodes patient has had the past Regarding body pain, she says it is actually a little better. She agrees to retry Flexeril to see if that is helpful. Patient complained of dysuria to nurse and asked for UA but was specific and wanting to be straight cathed. Patient had a significant volume of urine removed and is not sure if this is due to urinary retention or if patient is intentionally avoiding urinating; patient told medical underwriter she has intermittent history of urinary retention.. She also has been complaining about constipation however has been refusing laxatives/stool softeners. Respiratory Assistant discussed this and patient says she has long history of constipation and is worry about taking medications that will cause copious diarrhea, which happened once before when she laxatives. She agreed however that constipation needs to be relieved and said she would take medications. UA pending; bladder scan q shift w/ strait cath for CC>500 Plan: CV Q 15 minute checks Cyclobenzaprine 10 mg t.i.d. p.r.n.; has been on as high doses 20 mg Cymbalta 60 mg DC fluoxetine DC Wellbutrin famotidine 20 mg b.i.d.; patient says she has chronic GERD risperidone 3 mg q.h.s. prazosin 1 mg q.h.s. Cogentin 0.5 mg b.i.d. gabapentin 100 mg t.i.d. for chronic pain (reviewed risks/side-effects) Will order H pylori antigen stool test; patient says she has had intractable GERD for a long time; has never been tested for H pylori Patient educated on: diagnosis, medication risk/benefits and medical condition Informed Consent: understands, does not understand and further education needed Reason for continued inpatient stay Substantial Risk for: inability to function Time Spent With Patient Time: Total time managing care of this patient today ____ minutes.
[2025-03-03] MEDS: Fluticasone Propionate Nasal 16 GM SPRAY 2 SPRAY NOSTRIL-B (08:38)
[2025-03-03] MEDS: DULoxetine HCl 60 MG CAPSULE.DR PO (08:39)
[2025-03-03] MEDS: Benztropine Mesylate 0.5 MG TABLET PO ×2 (08:39→20:21)
[2025-03-03] MEDS: Famotidine 20 MG TABLET PO ×2 (08:39→20:21)
[2025-03-03] MEDS: Omeprazole 40 MG CAPSULE.DR PO (08:39)
[2025-03-03] MEDS: Gabapentin 100 MG CAPSULE PO ×3 (08:39→20:21)
[2025-03-03] MEDS: Atorvastatin Calcium 10 MG TABLET PO (08:39)
[2025-03-03] MEDS: Loratadine 10 MG TABLET PO (08:39)
--- NOTE | 2025-03-03 09:01 | PM.NEUROCN ---
History of Present Illness Data of Consult Service Date: 03/03/25 Primary Care Provider: Unknown Physician HPI Reason for consult: New onset difficulty walking This is a 54 year-old female with H/O Depression with poor compliance, metabolic encephalopathy, ulcerative colitis, GERD, IBS, presented with shortness of breath to the ED, where she talked about wanting to . Patient reports that about a month ago, she stopped going to her therapist due to lack of insurance; she says she does not take medications regularly, does not get refills and has been off of her medications for about 2 months. She says that she was doing overall good enough and that depression would come and go. She says she is in chronic generalized body pain which says seems to have gotten worse recently. Recently moved into a correction, saying she needed more support. Over these past few days she became more depressed. Reports extreme anxiety since childhood and depressive episodes.Complians of trouble walking because of pain in her legs PMFSH Past Medical History Medical History (Updated 03/03/25 @ 09:44 by Harjeet Kaplan MD) MDD (major depressive disorder), recurrent severe, without psychosis Social History Social History Household Members: Other Housing: Assisted Living Facility Do you presently have visiting nurse or other home services: No Patient Tobacco Use Status: Never used Tobacco Smoked in Last 30 Days: No e-Cigarette/Vaping Use: Never Used Use of substances other than those prescribed or required for medical reasons: No Currently Displaying Signs/Symptoms of Drug Intoxication Withdrawal: No Any prior treatment program specific to substance use: No Have you been hit, kicked, punched, or otherwise hurt by someone within the past year? If so, by whom?: No Do you feel safe in your current relationship?: No Is there a partner from a previous relationship who is making you feel unsafe now?: No Are you made to feel afraid or neglected: No Advance Directives: No Advance Directives Information Provided: Yes Do you have thoughts of harming others: None Do you have a plan to hurt others: No Plan Recently lost weight without trying: No Nutrition Risks: No Nutritional Risk Patient : No : No Poor oral hygiene: No service: No Sexual orientation: Straight/Heterosexual Meds Allergies Allergy/AdvReac Type Severity Reaction Status Date / Time No Known Allergies Allergy Verified 02/18/25 07:24 [No Known Allergies*] Active Medications: Current Medications Acetaminophen (Acetaminophen 325 Mg Tablet) 650 mg PO Q6H PRN PRN Reason: Headache/Pain, Scale 1-10 Last Admin: 02/28/25 16:07 Dose: 650 mg Al Hydroxide/Mg Hydroxide (Magnesium Hydrox/Alum Hydrox 30 Ml Oral.Susp) 30 ml PO Q6H PRN PRN Reason: Heartburn/Nausea Atorvastatin Calcium (Atorvastatin Calcium 10 Mg Tablet) 10 mg PO DAILY [facility] Last Admin: 03/03/25 08:39 Dose: 10 mg Benztropine Mesylate (Benztropine Mesylate 0.5 Mg Tablet) 0.5 mg PO BID [facility] Last Admin: 03/03/25 08:39 Dose: 0.5 mg Cyclobenzaprine HCl (Cyclobenzaprine Hcl 10 Mg Tablet) 10 mg PO TID PRN PRN Reason: Muscle Spasm/aches Docusate Sodium (Docusate Sodium 100 Mg Capsule) 100 mg PO DAILY PRN PRN Reason: constipation Last Admin: 03/01/25 09:11 Dose: 100 mg Duloxetine HCl (Duloxetine Hcl 60 Mg Capsule.Dr) 60 mg PO DAILY [facility] Last Admin: 03/03/25 08:39 Dose: 60 mg Famotidine (Famotidine 20 Mg Tablet) 20 mg PO BID [facility] Last Admin: 03/03/25 08:39 Dose: 20 mg Fluticasone Propionate (Fluticasone Propionate Nasal 16 Gm [place]) 2 spray NOSTRIL-B DAILY [facility] Last Admin: 03/03/25 08:38 Dose: 2 spray Gabapentin (Gabapentin 100 Mg Capsule) 100 mg PO TID [facility] Last Admin: 03/03/25 08:39 Dose: 100 mg Hydrocortisone (Hydrocortisone 2.5 % Rectal Cr 30 Gm Tube) 1 appl [place] Q6H PRN PRN Reason: Hemorrhoids Hydroxyzine HCl (Hydroxyzine Hcl 25 Mg Tablet) 25 mg PO Q6H PRN PRN Reason: mild anxiety Hydroxyzine HCl (Hydroxyzine Hcl 25 Mg Tablet) 25 mg PO BEDTIME MRX1 PRN PRN Reason: Insomnia Last Admin: 03/02/25 01:14 Dose: 25 mg Loratadine (Loratadine 10 Mg Tablet) 10 mg PO DAILY [facility] Last Admin: 03/03/25 08:39 Dose: 10 mg Magnesium Hydroxide (Milk Of Magnesia 30 Ml Oral.Susp) 30 ml PO DAILY PRN PRN Reason: Constipation Last Admin: 03/01/25 17:51 Dose: 30 ml Naproxen (Naproxen 500 Mg Tablet) 500 mg PO BID PRN PRN Reason: Pain (Scale Score 1-3) Last Admin: 03/01/25 09:11 Dose: 500 mg Nicotine Polacrilex (Nicotine Polacrilex 2 Mg Gum) 4 mg BUCCAL Q2H PRN PRN Reason: Nicotine Cravings Omeprazole (Omeprazole 40 Mg Capsule.Dr) 40 mg PO BID@0630,1630 [facility] Last Admin: 03/03/25 08:39 Dose: 40 mg Ondansetron HCl (Ondansetron Odt 4 Mg Tab.Rapdis) 4 mg TRANSLINGU Q8H PRN PRN Reason: Nausea and Vomiting Polyethylene Glycol (Polyethylene Glycol 3350 17 Gm Powd.Pack) 17 gm PO DAILY PRN PRN Reason: Constipation Last Admin: 03/01/25 09:56 Dose: 17 gm Polyethylene Glycol (Polyethylene Glycol 3350 17 Gm Powd.Pack) 17 gm PO DAILY [facility] Last Admin: 03/03/25 08:48 Dose: Not Given Prazosin HCl (Prazosin Hcl 1 Mg Capsule) 1 mg PO BEDTIME [facility]; Protocol Last Admin: 03/02/25 20:35 Dose: 1 mg Risperidone (Risperidone Oral Lindsay 1 Mg/Ml Solution) 3 mg PO BEDTIME [facility] Last Admin: 03/02/25 20:35 Dose: 3 mg Senna (Sennosides 8.6 Mg Tablet) 17.2 mg PO BEDTIME [facility] Last Admin: 03/02/25 20:34 Dose: 17.2 mg Home Medications ?Medication ?Instructions ?Recorded ?Confirmed ?Last Taken ?Type acetaminophen 325 mg capsule 650 mg PO Q4H PRN Fever Or Pain 02/18/25 02/18/25 Unknown History benztropine 0.5 mg tablet 0.5 mg PO BID 02/18/25 02/18/25 Unknown History docusate sodium 100 mg capsule 100 mg PO DAILY 02/18/25 02/18/25 Unknown History (Colace) fluoxetine 20 mg capsule 20 mg PO DAILY 02/18/25 02/18/25 Unknown History fluticasone propionate 50 2 spray intranasal DAILY 02/18/25 02/18/25 Unknown History mcg/actuation nasal spray,suspension hydrocortisone 2.5 % topical cream 1 appl [place] Q6H PRN Hemorrhoids 02/18/25 02/18/25 Unknown History with perineal applicator (Anusol-HC) loperamide 2 mg capsule 2 mg PO Q4H PRN Diarrhea 02/18/25 02/18/25 Unknown History lubiprostone 24 mcg capsule 24 mcg PO BEDTIME 02/18/25 02/18/25 Unknown History (Amitiza) magnesium hydroxide 400 mg/5 mL 30 ml PO DAILY PRN Constipation 02/18/25 02/18/25 Unknown History oral suspension (Milk of Magnesia) naproxen 500 mg tablet 500 mg PO BID PRN Pain (Scale 02/18/25 02/18/25 Unknown History Score 1-3) omeprazole 40 mg capsule,delayed 40 mg PO BID@0630,1630 02/18/25 02/18/25 Unknown History release ondansetron HCl 4 mg tablet 4 mg PO Q6H PRN Nausea And Vomiting 02/18/25 02/18/25 Unknown History prazosin 1 mg capsule 1 mg PO BEDTIME 02/18/25 02/18/25 Unknown History risperidone 3 mg tablet 3 mg PO BEDTIME 02/18/25 02/18/25 Unknown History sennosides 8.6 mg tablet (Senokot) 17.2 mg PO BEDTIME 02/18/25 02/18/25 Unknown History simvastatin 20 mg tablet 20 mg PO BEDTIME 02/18/25 02/18/25 Unknown History Physical Exam Vital Signs: Vital Signs: Last Vital Signs Temp 98.5 F 03/03/25 07:51 Pulse 103 H 03/03/25 07:51 Resp 18 03/01/25 07:54 BP 123/63 03/03/25 07:51 Pulse Ox 94 03/03/25 07:51 O2 Del Method Room Air 03/03/25 07:51 BMI result Body Mass Index 25.4 Neuro: Other: Distracted and poorly cooperative in following commands. avoids eye contact and [place] snot give much info. Neeeds multiple attempts for her to follow simple instructions during exam. Non focal exam with normal cranial nerves. Able to walk unsupported. a bit unsteady on turns. DTRs 3+ an dplantars are flexor. Results Labs 02/28/25 17:26 02/28/25 17:26 Microbiology Microbiology Results: Microbiology 02/18/25 Unknown Urine Catheterized - Straight Catheter Urine Culture - Final Assessment and Plan (1) Gait difficulty: Status: Acute Mostly attributes to pain by the patient. No clear neurological findings Recom: MRI brain to r/o demyelinating disease. PT for gait and balance Procedures Date of Service Date of Service: 03/03/25
--- NOTE | 2025-03-03 14:08 | PC.NURSE ---
Pt c/o urinary discomfort, specifically pressure and burning sensation. Pt requested provider check urine for infections. Pt noted to be incontinent of small amounts of urine throughout the day. Additionally pt assisted to bathroom frequently to use toilet, however was only urinating small amounts. Provider notified and order received for urine culture. Pt requested sample be taken via catherization. Pt stated I'd feel more comfortable that way, because I get anxious in the bathroom and I don't want to pee into a cup. Provider made aware and orders received for one time straight catherization for sample collection. 1345 pt was straight cath for 1100ml yellow urine. Pt tolerated procedure well. Second RN present for catherization. Pt reported slightly reduced pressure in lower abdomen after procedure. Sample sent to lab with pending results. Provider notified of collection amount.
[2025-03-03 14:35] LABS: Appearance Urine Clear; Color Urine Yellow; Glucose Urine UA Negative (Negative); Leukocyte Esterase Urine Trace (Negative); Nitrite Urine Negative (Negative); PH 7.5 (5.0-9.0); Specific Gravity - Urine 1.015 (1.005-1.025); UMIC TRIGGER UACC YES; Urine Blood Negative (Negative); Urine Ketones Negative (Negative); Urine Protein Negative (Neg-Trace)
[2025-03-03 14:40] LABS: Bacteria Urine None Seen (None Seen); Hyaline Casts Urine 0-2 /LPF (0-2); RBC Urine 0-2 /HPF (0-2); Squamous Epithelial Cell Urine 0-2 /HPF (0-2); WBC Urine 0-5 /HPF (0-5)
[2025-03-03] MEDS: Sennosides 8.6 MG TABLET PO (15:07)
[2025-03-03] MEDS: Cyclobenzaprine HCl 10 MG TABLET PO (15:07)
[2025-03-03] MEDS: polyethylene glycoL 3350 17 GM POWD.PACK PO (15:08)
[2025-03-03 19:43] VITALS: BP 126/83; PULSE 114; TEMP 37.2; O2SAT 96
[2025-03-03] MEDS: Prazosin HCL 1 MG CAPSULE PO (20:21)
[2025-03-03] MEDS: Sennosides 8.6 MG TABLET 17.2 MG PO (20:21)
[2025-03-03] MEDS: risperiDONE Oral Sol 1 MG/ML SOLUTION 3 MG PO (20:22)
[2025-03-04] MEDS: Omeprazole 40 MG CAPSULE.DR PO ×2 (06:41→16:42)
[2025-03-04 08:00] VITALS: BP 120/60; PULSE 115; RESP 18; TEMP 36.9; O2SAT 95
[2025-03-04] MEDS: Benztropine Mesylate 0.5 MG TABLET PO ×2 (08:42→22:19)
[2025-03-04] MEDS: Loratadine 10 MG TABLET PO (08:42)
[2025-03-04] MEDS: Famotidine 20 MG TABLET PO ×2 (08:42→22:19)
[2025-03-04] MEDS: DULoxetine HCl 60 MG CAPSULE.DR PO (08:42)
[2025-03-04] MEDS: Gabapentin 100 MG CAPSULE PO ×3 (08:42→22:23)
[2025-03-04] MEDS: Atorvastatin Calcium 10 MG TABLET PO (08:42)
[2025-03-04] MEDS: Fluticasone Propionate Nasal 16 GM SPRAY 2 SPRAY NOSTRIL-B (08:56)
[2025-03-04] MEDS: Acetaminophen 325 MG TABLET 650 MG PO (12:50)
[2025-03-04] MEDS: Cyclobenzaprine HCl 10 MG TABLET PO ×2 (12:50→22:20)
--- NOTE | 2025-03-04 16:00 | P.PNPSI_ITS ---
Subjective Subjective Date of Service: 03/04/25 Reason For Visit: Depression Interim History: Met with patient; discussed with team Patient reports to tech writer that her mood is a little better and today no SI. Patient also says that her pain is a little bit better today. She is not sure Flexeril helped but agrees to have it scheduled. Patient remains with urinary retention via bladder scans. Will get consult. Later in the day tech writer met with patient again who was feeling more distraught and now saying she is not better at all. Patient says she feels marginalized because she has a disability. Discussed chronic pain with patient and her brother who was also present; patient remained vague about this issue and says she has just learned to deal with it; she is agreeing to increasing gabapentin. Also agrees to clonazepam Diagnostics Vital Signs (24Hr): Vital Signs - 24 hr 03/03/25 19:43 03/04/25 08:00 Temperature 98.9 F 98.5 F Pulse Rate 114 H 115 H Respiratory Rate 18 Blood Pressure 126/83 120/60 Pulse Oximetry 96 95 Oxygen Delivery Method Room Air Room Air BMI result Body Mass Index 25.4 Labs 02/28/25 17:26 02/28/25 17:26 Labs: Laboratory Results - last 48 hr 03/03/25 13:45 Urine Color Yellow Urine Appearance Clear Urine pH 7.5 Ur Specific [place] 1.015 Urine Protein Negative Urine Glucose (UA) Negative Urine Ketones Negative Urine Blood Negative Urine Nitrite Negative Ur Leukocyte Esterase Trace H Urine RBC 0-2 Urine WBC 0-5 Ur Squamous Epith Cells 0-2 Urine Bacteria None Seen Hyaline Casts 0-2 Imaging Radiology Impressions: ITS Impressions Chest X-Ray 02/18/25 09:58 IMPRESSION: Mild interstitial edema and bilateral pleural effusions, small to moderate volume, similar to slightly worsened since prior exam. Electronically signed by: Hamlet Stephens MD 02/18/2025 10:42 AM EDT Medications Medications Current Medications Acetaminophen (Acetaminophen 325 Mg Tablet) 650 mg PO Q6H PRN PRN Reason: Headache/Pain, Scale 1-10 Last Admin: 03/04/25 12:50 Dose: 325 mg Al Hydroxide/Mg Hydroxide (Magnesium Hydrox/Alum Hydrox 30 Ml Oral.Susp) 30 ml PO Q6H PRN PRN Reason: Heartburn/Nausea Atorvastatin Calcium (Atorvastatin Calcium 10 Mg Tablet) 10 mg PO DAILY [facility] Last Admin: 03/04/25 08:42 Dose: 10 mg Benztropine Mesylate (Benztropine Mesylate 0.5 Mg Tablet) 0.5 mg PO BID [facility] Last Admin: 03/04/25 08:42 Dose: 0.5 mg Clonazepam (Clonazepam 0.5 Mg Tablet) 0.5 mg PO ONCE ONE Stop: 03/04/25 15:59 Clonazepam (Clonazepam 0.5 Mg Tablet) 0.5 mg PO BID@0900,1400 [facility] Cyclobenzaprine HCl (Cyclobenzaprine Hcl 10 Mg Tablet) 10 mg PO TID PRN PRN Reason: Muscle Spasm/aches Cyclobenzaprine HCl (Cyclobenzaprine Hcl 10 Mg Tablet) 10 mg PO TID [facility] Last Admin: 03/04/25 12:50 Dose: 10 mg Docusate Sodium (Docusate Sodium 100 Mg Capsule) 100 mg PO DAILY PRN PRN Reason: constipation Last Admin: 03/01/25 09:11 Dose: 100 mg Duloxetine HCl (Duloxetine Hcl 60 Mg Capsule.Dr) 60 mg PO DAILY [facility] Last Admin: 03/04/25 08:42 Dose: 60 mg Famotidine (Famotidine 20 Mg Tablet) 20 mg PO BID [facility] Last Admin: 03/04/25 08:42 Dose: 20 mg Fluticasone Propionate (Fluticasone Propionate Nasal 16 Gm [place]) 2 spray NOSTRIL-B DAILY [facility] Last Admin: 03/04/25 08:56 Dose: 2 spray Gabapentin (Gabapentin 100 Mg Capsule) 100 mg PO TID [facility] Last Admin: 03/04/25 08:42 Dose: 100 mg Hydrocortisone (Hydrocortisone 2.5 % Rectal Cr 30 Gm Tube) 1 appl [place] Q6H PRN PRN Reason: Hemorrhoids Hydroxyzine HCl (Hydroxyzine Hcl 25 Mg Tablet) 25 mg PO Q6H PRN PRN Reason: mild anxiety Loratadine (Loratadine 10 Mg Tablet) 10 mg PO DAILY [facility] Last Admin: 03/04/25 08:42 Dose: 10 mg Magnesium Hydroxide (Milk Of Magnesia 30 Ml Oral.Susp) 30 ml PO DAILY PRN PRN Reason: Constipation Last Admin: 03/01/25 17:51 Dose: 30 ml Naproxen (Naproxen 500 Mg Tablet) 500 mg PO BID PRN PRN Reason: Pain (Scale Score 1-3) Last Admin: 03/01/25 09:11 Dose: 500 mg Nicotine Polacrilex (Nicotine Polacrilex 2 Mg Gum) 4 mg BUCCAL Q2H PRN PRN Reason: Nicotine Cravings Omeprazole (Omeprazole 40 Mg Capsule.Dr) 40 mg PO BID@0630,1630 [facility] Last Admin: 03/04/25 06:41 Dose: 40 mg Ondansetron HCl (Ondansetron Odt 4 Mg Tab.Rapdis) 4 mg TRANSLINGU Q8H PRN PRN Reason: Nausea and Vomiting Polyethylene Glycol (Polyethylene Glycol 3350 17 Gm Powd.Pack) 17 gm PO DAILY PRN PRN Reason: Constipation Last Admin: 03/01/25 09:56 Dose: 17 gm Polyethylene Glycol (Polyethylene Glycol 3350 17 Gm Powd.Pack) 17 gm PO DAILY [facility] Last Admin: 03/04/25 08:42 Dose: Not Given Prazosin HCl (Prazosin Hcl 1 Mg Capsule) 1 mg PO BEDTIME [facility]; Protocol Last Admin: 03/03/25 20:21 Dose: 1 mg Risperidone (Risperidone Oral Lindsay 1 Mg/Ml Solution) 3 mg PO BEDTIME [facility] Last Admin: 03/03/25 20:22 Dose: 3 mg Senna (Sennosides 8.6 Mg Tablet) 17.2 mg PO BEDTIME [facility] Last Admin: 03/03/25 20:21 Dose: 17.2 mg Allergies Allergies Allergy/AdvReac Type Severity Reaction Status Date / Time No Known Allergies Allergy Verified 02/18/25 07:24 [No Known Allergies*] Assessment & Plan Assessment & Plan (1) MDD (major depressive disorder), recurrent severe, without psychosis: Status: Acute Code(s): F33.2 - Major depressive disorder, recurrent severe without psychotic features (2) Anxiety: Status: Acute Code(s): F41.9 - Anxiety disorder, unspecified Plan 54 year-old female with PMHx of Parkinson's with dyskinesia, metabolic encephalopathy, constipation, ulcerative colitis, GERD, IBS, 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 Patient called 911 saying she was short of breath but here in the ED she talked about wanting to . Patient reports that about a month ago, she stopped going to her therapist due to lack of insurance; she says she does not take medications regularly, runs out of them and does not get refills and has been off of her medications for about 2 months. She says that she was doing overall good enough and that depression would come and go. They however she has been feeling more down, tired of always being in pain. Patient explained contributory factors being chronic pain which says seems to have gotten worse recently (patient names almost every part of her body as painful: headaches, joints, stomach, legs, feet...each toe). Patient reports up until a week ago, she was living on her own in her own apartment but this past week she moved into a half-way, saying she needed more support. Over these past few days she became more depressed. Once in the emergency room she says she started to think about ending it... Taking a bunch of pills... Patient explains concretely if I were home I would have done it because I had access to the pills... Here I do not have access to the pills. She reports Hx of SI but has never actually tried to; says usually the feeling passes; reports extreme anxiety since childhood; seems to endorse depressive episodes. -denies AVH or paranoid ideations; she does not know why she is prescribed risperidone -denies drug or alcohol use Formulation/clinical reasoning: Endorses depression and anxiety; has been off her medications which is likely contributory as well as chronic pain though not sure the cause; she says nothing has ever help with her pain before however agrees to start and try gabapentin. Patient with blunted affect and concrete; will seek to rule out ASD. Need collateral Hospital course: 02/21 still feeling down; still thinking of suicide but hopeful not to do it agrees to increase prozac to 40mg; also agrees to increased Gabapentin 300mg TID has not had a BM yet; says chronically has trouble pooping and has been constipated for years -agrees to Mirrilax 02/22 Patient reports that she is still depressed and still feeling suicidal though she reports SI is waning. No bowel movement. No medication side effects and agrees to titration 02/23 says still depressed and still with some SI remaining; agrees to increasing buproprion -still constipated 02/24 says still depressed; still with some SI; talked about anxiety as well. pt says no change in chronic body pain with gabapentin; agrees to titrate 02/25 no change in presentation; still depressed, still w/ some SI. Tried to discuss etiology of depression which she seems to say was sudden and did not have anything to do w/ moving into half-way 02/[address] IMPRESSION:. No acute intracranial findings. 03/02 Patient had a tough weekend. There was some concern that she slurred her speech was confused or dizzy. Head CT negative. Today patient says she wants to that she is so sad.. And feels so unhappy. Patient is tearful and endorses SI. She can be hard to understand however when tech writer mentions this, she apologizes, slows down her speech and is understandable. She says she has pain everywhere from her head to her toes and everywhere in-between. She thinks maybe it was a little better last week and tech writer mentioned that her gabapentin had been significantly lowered over the weekend possibly out of concern for patient's dizziness. Patient says she has no formal diagnosis for pain. Rn Lpn Lvn discussed medication regimen with patient who agreed to discontinue Prozac, discontinue Wellbutrin, which have not seemed to help and instead start on Cymbalta which can help with both anxiety, depression as well as pain. Patient shuffling around and now reporting falls; tech writer inquired and she agreed she was not falling last week but says it is only change now due to the increase in pain. At this point, changes seem more due to behaviors rather than organic. Given that patient has a history of Parkinson's and for some reason a pain syndrome that seems undiagnosed, Neuro consult placed as well -will consider increasing gabapentin again -add cyclobenzaprine which she has been on in the past -reportedly patient has history of Parkinson's 03/03 Regarding SI, she says it is still remains; however, mood little better today; tolerating cymbalta 60mg and discussed med changes again. She said that Said due to her anxiety she has been a little snippy with people which she says she has talked to her therapist about Patient mentioned visual hallucinations; she explains to tech writer that says seeing like a painting on the wall, like people walking around... However with further inquiry, this only occurs when she is waking up from sleep and not otherwise. parking worker discussed with brother who says that this sounds like behavioral episodes patient has had the past Regarding body pain, she says it is actually a little better. She agrees to retry Flexeril to see if that is helpful. Patient complained of dysuria to nurse and asked for UA but was specific and wanting to be straight cathed. Patient had a significant volume of urine removed and is not sure if this is due to urinary retention or if patient is intentionally avoiding urinating; patient told tech writer she has intermittent history of urinary retention.. She also has been complaining about constipation however has been refusing laxatives/stool softeners. Rn Lpn Lvn discussed this and patient says she has long history of constipation and is worry about taking medications that will cause copious diarrhea, which happened once before when she laxatives. She agreed however that constipation needs to be relieved and said she would take medications. UA pending: unremarkable (bladder scan q shift w/ strait cath for CC>500) 03/04 Patient reports to tech writer that her mood is a little better and today no SI. Patient also says that her pain is a little bit better today. She is not sure Flexeril helped but agrees to have it scheduled. Patient up walking around the unit today without assistance. Patient remains with urinary retention via bladder scans. Will get consult. Later in the day tech writer met with patient again who was feeling more distraught and now saying she is not better at all. Patient says she feels marginalized because she has a disability. Discussed chronic pain with patient and her brother who was also present; patient remained vague about this issue and says she has just learned to deal with it; she is agreeing to increasing gabapentin. Also agrees to clonazepam -will 1st add clonazepam 0.5 mg b.i.d.; she has been on in the past and her anxiety seems to be a major contributor to her experience of pain and her ability to walk freely on her own. -will consider increasing gabapentin as well Plan: CV Q 15 minute checks Start Clonazepam 0.5 mg b.i.d. for anxiety; has been on in the past Cyclobenzaprine 10 mg t.i.d. scheduled (with p.r.n.; patient has been on as high doses 20 mg) Cymbalta 60 mg DC fluoxetine DC Wellbutrin famotidine 20 mg b.i.d.; patient says she has chronic GERD risperidone 3 mg q.h.s. prazosin 1 mg q.h.s. Cogentin 0.5 mg b.i.d. gabapentin 100 mg t.i.d. for chronic pain (reviewed risks/side-effects) Will order H pylori antigen stool test; patient says she has had intractable GERD for a long time; has never been tested for H pylori Patient educated on: diagnosis, medication risk/benefits and medical condition Informed Consent: understands, does not understand and further education needed Reason for continued inpatient stay Substantial Risk for: inability to function Time Spent With Patient Time: Total time managing care of this patient today ____ minutes.
[2025-03-04] MEDS: clonazePAM 0.5 MG TABLET PO (16:42)
[2025-03-04 20:00] VITALS: BP 108/66; PULSE 107; RESP 16; TEMP 36.1; O2SAT 97
[2025-03-04] MEDS: risperiDONE Oral Sol 1 MG/ML SOLUTION 3 MG PO (22:17)
[2025-03-04] MEDS: Sennosides 8.6 MG TABLET 17.2 MG PO (22:18)
[2025-03-04 22:19] VITALS: BP 130/75
[2025-03-04] MEDS: Prazosin HCL 1 MG CAPSULE PO (22:19)
--- NOTE | 2025-03-04 23:29 | PC.NURSE ---
RN BLADDER SCANNED PT AT APPROXIMATELY 2215 FOR 859ML. PT VOIDED IN THE BATHROOM. RN REPEATED BLADDER SCAN FOR 678ML. RN PERFORMED STRAIGHT CATH ON PT AND REMOVED APPROXIMATELY 600ML OF URINE. BLADDER SCAN AFTER STRAIGHT CATH WAS 80ML.
--- NOTE | 2025-03-05 00:09 | PM.EVENT ---
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 Bladder scan at 16:00 today at 450 mL. Ordered straight cath. Plan for re-evaluation in the morning, consider urologic consultation if persistent urinary retention. Time Spent With Patient Time: Total time managing care of this patient today ____ minutes.
[2025-03-05] MEDS: Omeprazole 40 MG CAPSULE.DR PO ×2 (06:42→16:55)
[2025-03-05 08:00] VITALS: BP 99/58; PULSE 98; RESP 18; TEMP 36.6; O2SAT 95
[2025-03-05] MEDS: Famotidine 20 MG TABLET PO ×2 (08:22→21:28)
[2025-03-05] MEDS: clonazePAM 0.5 MG TABLET PO ×2 (08:22→16:55)
[2025-03-05] MEDS: DULoxetine HCl 60 MG CAPSULE.DR PO (08:22)
[2025-03-05] MEDS: Cyclobenzaprine HCl 10 MG TABLET PO ×2 (08:22→16:55)
[2025-03-05] MEDS: Benztropine Mesylate 0.5 MG TABLET PO ×2 (08:23→21:28)
[2025-03-05] MEDS: Loratadine 10 MG TABLET PO (08:23)
[2025-03-05] MEDS: Gabapentin 100 MG CAPSULE PO ×2 (08:23→16:55)
[2025-03-05] MEDS: Atorvastatin Calcium 10 MG TABLET PO (08:23)
[2025-03-05] MEDS: polyethylene glycoL 3350 17 GM POWD.PACK PO (08:25)
--- NOTE | 2025-03-05 09:56 | HO.PM.IMCN ---
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 Patient is seen for urinary retention. Patient experienced urinary retention 03/04/2025 scanned for 859, catheterized for 600 cc. Again catheterized for 680 cc last evening. Additional bladder scans noted 120, 470, 460 with no action taken. She has mild suprapubic tenderness on exam. Reports burning and pain with urination. Reports intermittent post menopausal bleeding. None at present. No vaginal discharge. Reports vaginal pain on occasion. Denies a history of this issue in the past, has never seen a urologist. Patient is also reporting that she is constipated. Upon review she is slightly anemic, renal function within normal limits. Urinalysis performed on 03/03 showed a trace of leukocyte esterase. Negative for nitrites and negative for WBCs. No blood present. Review of Systems Review of Systems: She denies any chest pain, shortness of breath, dizziness, lightheadedness or any other concerning symptoms aside what is listed in the HPI. [facility] Medical History (Updated 03/05/25 @ 10:41 by Janis Baker DNP) MDD (major depressive disorder), recurrent severe, without psychosis Social History Household Members: Other Housing: Assisted Living Facility Do you presently have visiting nurse or other home services: No Patient Tobacco Use Status: Never used Tobacco Smoked in Last 30 Days: No e-Cigarette/Vaping Use: Never Used Use of substances other than those prescribed or required for medical reasons: No Currently Displaying Signs/Symptoms of Drug Intoxication Withdrawal: No Any prior treatment program specific to substance use: No Have you been hit, kicked, punched, or otherwise hurt by someone within the past year? If so, by whom?: No Do you feel safe in your current relationship?: No Is there a partner from a previous relationship who is making you feel unsafe now?: No Are you made to feel afraid or neglected: No Advance Directives: No Advance Directives Information Provided: Yes Do you have thoughts of harming others: None Do you have a plan to hurt others: No Plan Recently lost weight without trying: No Nutrition Risks: No Nutritional Risk Patient : No : No Poor oral hygiene: No service: No Sexual orientation: Straight/Heterosexual Meds Allergies Allergy/AdvReac Type Severity Reaction Status Date / Time No Known Allergies Allergy Verified 02/18/25 07:24 [No Known Allergies*] Active Medications: Current Medications Acetaminophen (Acetaminophen 325 Mg Tablet) 650 mg PO Q6H PRN PRN Reason: Headache/Pain, Scale 1-10 Last Admin: 03/04/25 12:50 Dose: 325 mg Al Hydroxide/Mg Hydroxide (Magnesium Hydrox/Alum Hydrox 30 Ml Oral.Susp) 30 ml PO Q6H PRN PRN Reason: Heartburn/Nausea Atorvastatin Calcium (Atorvastatin Calcium 10 Mg Tablet) 10 mg PO DAILY [facility] Last Admin: 03/05/25 08:23 Dose: 10 mg Benztropine Mesylate (Benztropine Mesylate 0.5 Mg Tablet) 0.5 mg PO BID [facility] Last Admin: 03/05/25 08:23 Dose: 0.5 mg Clonazepam (Clonazepam 0.5 Mg Tablet) 0.5 mg PO BID@0900,1400 [facility] Last Admin: 03/05/25 08:22 Dose: 0.5 mg Cyclobenzaprine HCl (Cyclobenzaprine Hcl 10 Mg Tablet) 10 mg PO TID PRN PRN Reason: Muscle Spasm/aches Cyclobenzaprine HCl (Cyclobenzaprine Hcl 10 Mg Tablet) 10 mg PO TID [facility] Last Admin: 03/05/25 08:22 Dose: 10 mg Docusate Sodium (Docusate Sodium 100 Mg Capsule) 100 mg PO DAILY PRN PRN Reason: constipation Last Admin: 03/01/25 09:11 Dose: 100 mg Duloxetine HCl (Duloxetine Hcl 60 Mg Capsule.Dr) 60 mg PO DAILY [facility] Last Admin: 03/05/25 08:22 Dose: 60 mg Famotidine (Famotidine 20 Mg Tablet) 20 mg PO BID [facility] Last Admin: 03/05/25 08:22 Dose: 20 mg Fluticasone Propionate (Fluticasone Propionate Nasal 16 Gm [place]) 2 spray NOSTRIL-B DAILY [facility] Last Admin: 03/04/25 08:56 Dose: 2 spray Gabapentin (Gabapentin 100 Mg Capsule) 100 mg PO TID [facility] Last Admin: 03/05/25 08:23 Dose: 100 mg Hydrocortisone (Hydrocortisone 2.5 % Rectal Cr 30 Gm Tube) 1 appl [place] Q6H PRN PRN Reason: Hemorrhoids Hydroxyzine HCl (Hydroxyzine Hcl 25 Mg Tablet) 25 mg PO Q6H PRN PRN Reason: mild anxiety Loratadine (Loratadine 10 Mg Tablet) 10 mg PO DAILY [facility] Last Admin: 03/05/25 08:23 Dose: 10 mg Magnesium Hydroxide (Milk Of Magnesia 30 Ml Oral.Susp) 30 ml PO DAILY PRN PRN Reason: Constipation Last Admin: 03/01/25 17:51 Dose: 30 ml Naproxen (Naproxen 500 Mg Tablet) 500 mg PO BID PRN PRN Reason: Pain (Scale Score 1-3) Last Admin: 03/01/25 09:11 Dose: 500 mg Nicotine Polacrilex (Nicotine Polacrilex 2 Mg Gum) 4 mg BUCCAL Q2H PRN PRN Reason: Nicotine Cravings Omeprazole (Omeprazole 40 Mg Capsule.Dr) 40 mg PO BID@0630,1630 [facility] Last Admin: 03/05/25 06:42 Dose: 40 mg Ondansetron HCl (Ondansetron Odt 4 Mg Tab.Rapdis) 4 mg TRANSLINGU Q8H PRN PRN Reason: Nausea and Vomiting Polyethylene Glycol (Polyethylene Glycol 3350 17 Gm Powd.Pack) 17 gm PO DAILY PRN PRN Reason: Constipation Last Admin: 03/01/25 09:56 Dose: 17 gm Polyethylene Glycol (Polyethylene Glycol 3350 17 Gm Powd.Pack) 17 gm PO DAILY [facility] Last Admin: 03/05/25 08:25 Dose: 17 gm Prazosin HCl (Prazosin Hcl 1 Mg Capsule) 1 mg PO BEDTIME [facility]; Protocol Last Admin: 03/04/25 22:19 Dose: 1 mg Risperidone (Risperidone Oral Lindsay 1 Mg/Ml Solution) 3 mg PO BEDTIME [facility] Last Admin: 03/04/25 22:17 Dose: 3 mg Senna (Sennosides 8.6 Mg Tablet) 17.2 mg PO BEDTIME [facility] Last Admin: 03/04/25 22:18 Dose: 17.2 mg Home Medications ?Medication ?Instructions ?Recorded ?Confirmed ?Last Taken ?Type acetaminophen 325 mg capsule 650 mg PO Q4H PRN Fever Or Pain 02/18/25 02/18/25 Unknown History benztropine 0.5 mg tablet 0.5 mg PO BID 02/18/25 02/18/25 Unknown History docusate sodium 100 mg capsule 100 mg PO DAILY 02/18/25 02/18/25 Unknown History (Colace) fluoxetine 20 mg capsule 20 mg PO DAILY 02/18/25 02/18/25 Unknown History fluticasone propionate 50 2 spray intranasal DAILY 02/18/25 02/18/25 Unknown History mcg/actuation nasal spray,suspension hydrocortisone 2.5 % topical cream 1 appl [place] Q6H PRN Hemorrhoids 02/18/25 02/18/25 Unknown History with perineal applicator (Anusol-HC) loperamide 2 mg capsule 2 mg PO Q4H PRN Diarrhea 02/18/25 02/18/25 Unknown History lubiprostone 24 mcg capsule 24 mcg PO BEDTIME 02/18/25 02/18/25 Unknown History (Amitiza) magnesium hydroxide 400 mg/5 mL 30 ml PO DAILY PRN Constipation 02/18/25 02/18/25 Unknown History oral suspension (Milk of Magnesia) naproxen 500 mg tablet 500 mg PO BID PRN Pain (Scale 02/18/25 02/18/25 Unknown History Score 1-3) omeprazole 40 mg capsule,delayed 40 mg PO BID@0630,1630 02/18/25 02/18/25 Unknown History release ondansetron HCl 4 mg tablet 4 mg PO Q6H PRN Nausea And Vomiting 02/18/25 02/18/25 Unknown History prazosin 1 mg capsule 1 mg PO BEDTIME 02/18/25 02/18/25 Unknown History risperidone 3 mg tablet 3 mg PO BEDTIME 02/18/25 02/18/25 Unknown History sennosides 8.6 mg tablet (Senokot) 17.2 mg PO BEDTIME 02/18/25 02/18/25 Unknown History simvastatin 20 mg tablet 20 mg PO BEDTIME 02/18/25 02/18/25 Unknown History Physical Exam Vital Signs and Narrative: Vital Signs: Last Vital Signs Temp 97.8 F 03/05/25 08:00 Pulse 98 03/05/25 08:00 Resp 18 03/05/25 08:00 BP 99/58 L 03/05/25 08:00 Pulse Ox 95 03/05/25 08:00 O2 Del Method Room Air 03/05/25 08:00 BMI result Body Mass Index 25.4 CONST: Alert and oriented, in NAD. Well nourished HEENT: Normocephalic, atraumatic, MMM, Eyes clear, Neck supple RESP: Lungs clear, RRR even and regular HEART:,RRR, S1, S2. No murmur, no edema GI:Abdomen Soft, ND. + BS times four. Mild suprapubic tenderness, no CVA tenderness :Deferred SKIN: Warm dry and intact, no visible lesions or rashes NEURO:CN II-XII Intact bilaterally, Sensation intact. 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 Now with urinary retention. She has been intermittently straight cathed. Urinary retention Recommendations to maximize bowel regime, avoiding constipation Etiology unclear, ? medication induced, review psychiatric medications Avoid anticholenergics If cystitis symptoms develop consider UA C&S Recommend bladder scans every 6 hours and SC greater than 350 Consider Aguilar catheter if urinary retention persists and obtain Urology consult. Post menopausal bleeding Reported during assessment Mild anemia, no bleeding at present Consider outpatient [facility] follow up.
--- NOTE | 2025-03-05 10:03 | HO.PSYCHPN ---
Subjective Subjective Date of Service: 03/05/25 Reason For Visit: Depression Interim History: met with pt; discussed with team pt says little better but still has SI, though she says it remains less. Pain remains but she says it comes and goes in intensity. Icu Specialist asked pt about yesterdays change from doing better to not so...Pt explained she has a long hx of emotional lability. She does not think Flexeril does much; she agrees Clonazepam lowers anxiety, though it makes her tired. At this time she feels it's a welcomed break from anxiety. Also agrees to increase Gabapentin again, since it seemed to be helping, even if it too makes her tired. Mental Status Exam Mental Status Exam Narrative: Pt is alert and oriented; behavior is more calm, lying in bed; dressed in casual attire with unkempt hair, glasses, appears older than chronological age, adequate hygiene; mood is described as A little better and affect congruent, not tearful; eye contact a little adequate; Speech is mumbled (which is baseline) but she can slow down and articulate; normal volume; some psychomotor retardation present; thought process is goal directed, concrete; Thought content is on dealing with pain and depression; no delusional ideations expressed; Some SI but less; no AVH. Patients insight and judgment impaired Diagnostics Vital Signs (24Hr): Vital Signs - 24 hr 03/04/25 20:00 03/04/25 22:19 03/05/25 08:00 Temperature 96.9 F 97.8 F Pulse Rate 107 H 98 Respiratory Rate 16 18 Blood Pressure 108/66 130/75 99/58 L Pulse Oximetry 97 95 Oxygen Delivery Method Room Air Room Air BMI result Body Mass Index 25.4 Labs 02/28/25 17:26 02/28/25 17:26 Labs: Laboratory Results - last 48 hr 03/03/25 13:45 Urine Color Yellow Urine Appearance Clear Urine pH 7.5 Ur Specific [place] 1.015 Urine Protein Negative Urine Glucose (UA) Negative Urine Ketones Negative Urine Blood Negative Urine Nitrite Negative Ur Leukocyte Esterase Trace H Urine RBC 0-2 Urine WBC 0-5 Ur Squamous Epith Cells 0-2 Urine Bacteria None Seen Hyaline Casts 0-2 Imaging Radiology Impressions: ITS Impressions Chest X-Ray 02/18/25 09:58 IMPRESSION: Mild interstitial edema and bilateral pleural effusions, small to moderate volume, similar to slightly worsened since prior exam. Electronically signed by: Hamlet Stephens MD 02/18/2025 10:42 AM EDT Medications Medications Current Medications Acetaminophen (Acetaminophen 325 Mg Tablet) 650 mg PO Q6H PRN PRN Reason: Headache/Pain, Scale 1-10 Last Admin: 03/04/25 12:50 Dose: 325 mg Al Hydroxide/Mg Hydroxide (Magnesium Hydrox/Alum Hydrox 30 Ml Oral.Susp) 30 ml PO Q6H PRN PRN Reason: Heartburn/Nausea Atorvastatin Calcium (Atorvastatin Calcium 10 Mg Tablet) 10 mg PO DAILY [facility] Last Admin: 03/05/25 08:23 Dose: 10 mg Benztropine Mesylate (Benztropine Mesylate 0.5 Mg Tablet) 0.5 mg PO BID [facility] Last Admin: 03/05/25 08:23 Dose: 0.5 mg Clonazepam (Clonazepam 0.5 Mg Tablet) 0.5 mg PO BID@0900,1400 [facility] Last Admin: 03/05/25 08:22 Dose: 0.5 mg Cyclobenzaprine HCl (Cyclobenzaprine Hcl 10 Mg Tablet) 10 mg PO TID PRN PRN Reason: Muscle Spasm/aches Cyclobenzaprine HCl (Cyclobenzaprine Hcl 10 Mg Tablet) 10 mg PO TID [facility] Last Admin: 03/05/25 08:22 Dose: 10 mg Docusate Sodium (Docusate Sodium 100 Mg Capsule) 100 mg PO DAILY PRN PRN Reason: constipation Last Admin: 03/01/25 09:11 Dose: 100 mg Duloxetine HCl (Duloxetine Hcl 60 Mg Capsule.Dr) 60 mg PO DAILY [facility] Last Admin: 03/05/25 08:22 Dose: 60 mg Famotidine (Famotidine 20 Mg Tablet) 20 mg PO BID [facility] Last Admin: 03/05/25 08:22 Dose: 20 mg Fluticasone Propionate (Fluticasone Propionate Nasal 16 Gm [place]) 2 spray NOSTRIL-B DAILY [facility] Last Admin: 03/04/25 08:56 Dose: 2 spray Gabapentin (Gabapentin 100 Mg Capsule) 100 mg PO TID [facility] Last Admin: 03/05/25 08:23 Dose: 100 mg Hydrocortisone (Hydrocortisone 2.5 % Rectal Cr 30 Gm Tube) 1 appl ID Q6H PRN PRN Reason: Hemorrhoids Hydroxyzine HCl (Hydroxyzine Hcl 25 Mg Tablet) 25 mg PO Q6H PRN PRN Reason: mild anxiety Loratadine (Loratadine 10 Mg Tablet) 10 mg PO DAILY [facility] Last Admin: 03/05/25 08:23 Dose: 10 mg Magnesium Hydroxide (Milk Of Magnesia 30 Ml Oral.Susp) 30 ml PO DAILY PRN PRN Reason: Constipation Last Admin: 03/01/25 17:51 Dose: 30 ml Naproxen (Naproxen 500 Mg Tablet) 500 mg PO BID PRN PRN Reason: Pain (Scale Score 1-3) Last Admin: 03/01/25 09:11 Dose: 500 mg Nicotine Polacrilex (Nicotine Polacrilex 2 Mg Gum) 4 mg BUCCAL Q2H PRN PRN Reason: Nicotine Cravings Omeprazole (Omeprazole 40 Mg Capsule.Dr) 40 mg PO BID@0630,1630 [facility] Last Admin: 03/05/25 06:42 Dose: 40 mg Ondansetron HCl (Ondansetron Odt 4 Mg Tab.Rapdis) 4 mg TRANSLINGU Q8H PRN PRN Reason: Nausea and Vomiting Polyethylene Glycol (Polyethylene Glycol 3350 17 Gm Powd.Pack) 17 gm PO DAILY PRN PRN Reason: Constipation Last Admin: 03/01/25 09:56 Dose: 17 gm Polyethylene Glycol (Polyethylene Glycol 3350 17 Gm Powd.Pack) 17 gm PO DAILY [facility] Last Admin: 03/05/25 08:25 Dose: 17 gm Prazosin HCl (Prazosin Hcl 1 Mg Capsule) 1 mg PO BEDTIME [facility]; Protocol Last Admin: 03/04/25 22:19 Dose: 1 mg Risperidone (Risperidone Oral Lindsay 1 Mg/Ml Solution) 3 mg PO BEDTIME [facility] Last Admin: 03/04/25 22:17 Dose: 3 mg Senna (Sennosides 8.6 Mg Tablet) 17.2 mg PO BEDTIME [facility] Last Admin: 03/04/25 22:18 Dose: 17.2 mg Allergies Allergies Allergy/AdvReac Type Severity Reaction Status Date / Time No Known Allergies Allergy Verified 02/18/25 07:24 [No Known Allergies*] Assessment & Plan Assessment & Plan (1) MDD (major depressive disorder), recurrent severe, without psychosis: Status: Acute Code(s): F33.2 - Major depressive disorder, recurrent severe without psychotic features (2) Anxiety: Status: Acute Code(s): F41.9 - Anxiety disorder, unspecified Plan 54 year-old female with PMHx of Parkinson's with dyskinesia, metabolic encephalopathy, constipation, ulcerative colitis, GERD, IBS, 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 Patient called 911 saying she was short of breath but here in the ED she talked about wanting to . Patient reports that about a month ago, she stopped going to her therapist due to lack of insurance; she says she does not take medications regularly, runs out of them and does not get refills and has been off of her medications for about 2 months. She says that she was doing overall good enough and that depression would come and go. They however she has been feeling more down, tired of always being in pain. Patient explained contributory factors being chronic pain which says seems to have gotten worse recently (patient names almost every part of her body as painful: headaches, joints, stomach, legs, feet...each toe). Patient reports up until a week ago, she was living on her own in her own apartment but this past week she moved into a halfway, saying she needed more support. Over these past few days she became more depressed. Once in the emergency room she says she started to think about ending it... Taking a bunch of pills... Patient explains concretely if I were home I would have done it because I had access to the pills... Here I do not have access to the pills. She reports Hx of SI but has never actually tried to; says usually the feeling passes; reports extreme anxiety since childhood; seems to endorse depressive episodes. -denies AVH or paranoid ideations; she does not know why she is prescribed risperidone -denies drug or alcohol use Formulation/clinical reasoning: Endorses depression and anxiety; has been off her medications which is likely contributory as well as chronic pain though not sure the cause; she says nothing has ever help with her pain before however agrees to start and try gabapentin. Patient with blunted affect and concrete; will seek to rule out ASD. Need collateral Hospital course: 02/21 still feeling down; still thinking of suicide but hopeful not to do it agrees to increase prozac to 40mg; also agrees to increased Gabapentin 300mg TID has not had a BM yet; says chronically has trouble pooping and has been constipated for years -agrees to Mirrilax 02/22 Patient reports that she is still depressed and still feeling suicidal though she reports SI is waning. No bowel movement. No medication side effects and agrees to titration 02/23 says still depressed and still with some SI remaining; agrees to increasing buproprion -still constipated 02/24 says still depressed; still with some SI; talked about anxiety as well. pt says no change in chronic body pain with gabapentin; agrees to titrate 02/25 no change in presentation; still depressed, still w/ some SI. Tried to discuss etiology of depression which she seems to say was sudden and did not have anything to do w/ moving into halfway 02/[address] IMPRESSION:. No acute intracranial findings. 03/02 Patient had a tough weekend. There was some concern that she slurred her speech was confused or dizzy. Head CT negative. Today patient says she wants to that she is so sad.. And feels so unhappy. Patient is tearful and endorses SI. She can be hard to understand however when web content writer mentions this, she apologizes, slows down her speech and is understandable. She says she has pain everywhere from her head to her toes and everywhere in-between. She thinks maybe it was a little better last week and web content writer mentioned that her gabapentin had been significantly lowered over the weekend possibly out of concern for patient's dizziness. Patient says she has no formal diagnosis for pain. Icu Specialist discussed medication regimen with patient who agreed to discontinue Prozac, discontinue Wellbutrin, which have not seemed to help and instead start on Cymbalta which can help with both anxiety, depression as well as pain. Patient shuffling around and now reporting falls; web content writer inquired and she agreed she was not falling last week but says it is only change now due to the increase in pain. At this point, changes seem more due to behaviors rather than organic. Given that patient has a history of Parkinson's and for some reason a pain syndrome that seems undiagnosed, Neuro consult placed as well -will consider increasing gabapentin again -add cyclobenzaprine which she has been on in the past -reportedly patient has history of Parkinson's 03/03 Regarding SI, she says it is still remains; however, mood little better today; tolerating cymbalta 60mg and discussed med changes again. She said that Said due to her anxiety she has been a little snippy with people which she says she has talked to her therapist about Patient mentioned visual hallucinations; she explains to web content writer that says seeing like a painting on the wall, like people walking around... However with further inquiry, this only occurs when she is waking up from sleep and not otherwise. lay out worker discussed with brother who says that this sounds like behavioral episodes patient has had the past Regarding body pain, she says it is actually a little better. She agrees to retry Flexeril to see if that is helpful. Patient complained of dysuria to nurse and asked for UA but was specific and wanting to be straight cathed. Patient had a significant volume of urine removed and is not sure if this is due to urinary retention or if patient is intentionally avoiding urinating; patient told web content writer she has intermittent history of urinary retention.. She also has been complaining about constipation however has been refusing laxatives/stool softeners. Icu Specialist discussed this and patient says she has long history of constipation and is worry about taking medications that will cause copious diarrhea, which happened once before when she laxatives. She agreed however that constipation needs to be relieved and said she would take medications. UA pending: unremarkable (bladder scan q shift w/ strait cath for CC>500) 03/04 Patient reports to web content writer that her mood is a little better and today no SI. Patient also says that her pain is a little bit better today. She is not sure Flexeril helped but agrees to have it scheduled. Patient up walking around the unit today without assistance. Patient remains with urinary retention via bladder scans. Will get consult. Later in the day web content writer met with patient again who was feeling more distraught and now saying she is not better at all. Patient says she feels marginalized because she has a disability. Discussed chronic pain with patient and her brother who was also present; patient remained vague about this issue and says she has just learned to deal with it; she is agreeing to increasing gabapentin. Also agrees to clonazepam -will 1st add clonazepam 0.5 mg b.i.d.; she has been on in the past and her anxiety seems to be a major contributor to her experience of pain and her ability to walk freely on her own. -will consider increasing gabapentin as well 03/05 pt says little better but still has SI, though she says it remains less. Pain not alleviated by scheduled flexeril. Pt explained she has a long hx of emotional lability. Agrees Clonazepam lowers anxiety, though it makes her tired. At this time she feels it's a welcomed break from anxiety. Also agrees to increase Gabapentin again, since it seemed to be helping, even if it too makes her tired. -still w/ urinary retention; PA recs to increase bladder scan to q6h and cath for CC>350; will monitor and get Urology consult if persists Plan: CV Q 15 minute checks INCREASE to gabapentin 300 mg t.i.d. for chronic pain (reviewed risks/side-effects) Start Clonazepam 0.5 mg b.i.d. for anxiety; has been on in the past Swich to PRN Cyclobenzaprine 10 mg t.i.d.prn (with p.r.n.; patient has been on as high doses 20 mg) Cymbalta 60 mg DC fluoxetine DC Wellbutrin famotidine 20 mg b.i.d.; patient says she has chronic GERD risperidone 3 mg q.h.s. prazosin 1 mg q.h.s. Cogentin 0.5 mg b.i.d. Will order H pylori antigen stool test; patient says she has had intractable GERD for a long time; has never been tested for H pylori Patient educated on: diagnosis, medication risk/benefits and therapeutic strategies Guardian/Caregiver educated on: medical condition Informed Consent: understands Reason for continued inpatient stay Substantial Risk for: inability to function Time Spent With Patient Time: Total time managing care of this patient today ____ minutes.
[2025-03-05] MEDS: Fluticasone Propionate Nasal 16 GM SPRAY 2 SPRAY NOSTRIL-B (16:57)
[2025-03-05 20:00] VITALS: BP 103/56; PULSE 89; TEMP 36.9; O2SAT 97
[2025-03-05 21:28] VITALS: BP 103/56
[2025-03-05] MEDS: Sennosides 8.6 MG TABLET 17.2 MG PO (21:28)
[2025-03-05] MEDS: Prazosin HCL 1 MG CAPSULE PO (21:28)
[2025-03-05] MEDS: Gabapentin 300 MG CAPSULE PO (21:28)
[2025-03-05] MEDS: risperiDONE Oral Sol 1 MG/ML SOLUTION 3 MG PO (21:28)
--- NOTE | 2025-03-06 00:48 | PC.NURSE ---
Late documentation: at approximately 2350, this patient was bladder scanned by this RN with a result of approximately 700 ml. The patient was toileted by two staff at that time. Post void, this keno writer bladder scanned the patient again, with a result of approximately 660 ml. A straight catheter was accomplished, with a result of approximately 620 ml of strong smelling dark willi urine.
[2025-03-06] MEDS: Omeprazole 40 MG CAPSULE.DR PO ×2 (06:18→15:52)
--- NOTE | 2025-03-06 07:34 | P.PNPSI_ITS ---
Subjective Subjective Date of Service: 03/06/25 Reason For Visit: Depression Interim History: Met with pt, reviewed with team Sedate with confusion, slurring of speech. Team notes a decline Bladder scans with cath q 6 >500. Pt on one to one. Klonopin/Gabapentin initiated recently Labs drawn, will decrease Gabapentin Medication Compliance: Yes Side effects from medications: Yes (??) Attending Groups: No Review of Systems as noted Review of Systems Review of Systems as noted Mental Status Exam Mental Status Exam Patient Appearance: Fatigued Patient Orientation: Person and Place Level of Consciousness: Alert Patient Behavior: Talkative, Passive, Fatigued, Distractible and Confused Mood Description: Withdrawn Affect Description: Withdrawn Patient Cognition Impaired: Yes Ability to Follow Directions: Fair Speech Pattern: Slurred and Spontaneous Speech Memory Description: Episodic Impaired Hallucinations: None Delusions: Not Present Thought Process: Confusion Judgement: Poor Diagnostics Vital Signs (24Hr): Vital Signs - 24 hr 03/05/25 08:00 03/05/25 20:00 03/05/25 21:28 Temperature 97.8 F 98.4 F Pulse Rate 98 89 Respiratory Rate 18 Blood Pressure 99/58 L 103/56 L 103/56 L Pulse Oximetry 95 97 Oxygen Delivery Method Room Air Room Air BMI result Body Mass Index 25.4 Labs 03/06/25 12:37 03/06/25 12:37 Imaging Radiology Impressions: ITS Impressions Chest X-Ray 02/18/25 09:58 IMPRESSION: Mild interstitial edema and bilateral pleural effusions, small to moderate volume, similar to slightly worsened since prior exam. Electronically signed by: Hamlet Stephens MD 02/18/2025 10:42 AM EDT Medications Medications Current Medications Acetaminophen (Acetaminophen 325 Mg Tablet) 650 mg PO Q6H PRN PRN Reason: Headache/Pain, Scale 1-10 Last Admin: 03/04/25 12:50 Dose: 325 mg Al Hydroxide/Mg Hydroxide (Magnesium Hydrox/Alum Hydrox 30 Ml Oral.Susp) 30 ml PO Q6H PRN PRN Reason: Heartburn/Nausea Atorvastatin Calcium (Atorvastatin Calcium 10 Mg Tablet) 10 mg PO DAILY [facility] Last Admin: 03/05/25 08:23 Dose: 10 mg Benztropine Mesylate (Benztropine Mesylate 0.5 Mg Tablet) 0.5 mg PO BID [facility] Last Admin: 03/05/25 21:28 Dose: 0.5 mg Clonazepam (Clonazepam 0.5 Mg Tablet) 0.5 mg PO BID@0900,1400 [facility] Last Admin: 03/05/25 16:55 Dose: 0.5 mg Cyclobenzaprine HCl (Cyclobenzaprine Hcl 10 Mg Tablet) 10 mg PO TID PRN PRN Reason: Muscle Spasm/aches Docusate Sodium (Docusate Sodium 100 Mg Capsule) 100 mg PO DAILY PRN PRN Reason: constipation Last Admin: 03/01/25 09:11 Dose: 100 mg Duloxetine HCl (Duloxetine Hcl 60 Mg Capsule.) 60 mg PO DAILY [facility] Last Admin: 03/05/25 08:22 Dose: 60 mg Famotidine (Famotidine 20 Mg Tablet) 20 mg PO BID [facility] Last Admin: 03/05/25 21:28 Dose: 20 mg Fluticasone Propionate (Fluticasone Propionate Nasal 16 Gm [place]) 2 spray NOSTRIL-B DAILY [facility] Last Admin: 03/05/25 16:57 Dose: 2 spray Gabapentin (Gabapentin 300 Mg Capsule) 300 mg PO TID [facility] Last Admin: 03/05/25 21:28 Dose: 300 mg Hydrocortisone (Hydrocortisone 2.5 % Rectal Cr 30 Gm Tube) 1 appl UT Q6H PRN PRN Reason: Hemorrhoids Hydroxyzine HCl (Hydroxyzine Hcl 25 Mg Tablet) 25 mg PO Q6H PRN PRN Reason: mild anxiety Loratadine (Loratadine 10 Mg Tablet) 10 mg PO DAILY [facility] Last Admin: 03/05/25 08:23 Dose: 10 mg Magnesium Hydroxide (Milk Of Magnesia 30 Ml Oral.Susp) 30 ml PO DAILY PRN PRN Reason: Constipation Last Admin: 03/01/25 17:51 Dose: 30 ml Naproxen (Naproxen 500 Mg Tablet) 500 mg PO BID PRN PRN Reason: Pain (Scale Score 1-3) Last Admin: 03/01/25 09:11 Dose: 500 mg Nicotine Polacrilex (Nicotine Polacrilex 2 Mg Gum) 4 mg BUCCAL Q2H PRN PRN Reason: Nicotine Cravings Omeprazole (Omeprazole 40 Mg Capsule.) 40 mg PO BID@0630,1630 [facility] Last Admin: 03/06/25 06:18 Dose: 40 mg Ondansetron HCl (Ondansetron Odt 4 Mg Tab.Rapdis) 4 mg TRANSLINGU Q8H PRN PRN Reason: Nausea and Vomiting Polyethylene Glycol (Polyethylene Glycol 3350 17 Gm Powd.Pack) 17 gm PO DAILY PRN PRN Reason: Constipation Last Admin: 03/01/25 09:56 Dose: 17 gm Polyethylene Glycol (Polyethylene Glycol 3350 17 Gm Powd.Pack) 17 gm PO DAILY [facility] Last Admin: 03/05/25 08:25 Dose: 17 gm Prazosin HCl (Prazosin Hcl 1 Mg Capsule) 1 mg PO BEDTIME [facility]; Protocol Last Admin: 03/05/25 21:28 Dose: 1 mg Risperidone (Risperidone Oral [place] 1 Mg/Ml Solution) 3 mg PO BEDTIME [facility] Last Admin: 03/05/25 21:28 Dose: 3 mg Senna (Sennosides 8.6 Mg Tablet) 17.2 mg PO BEDTIME [facility] Last Admin: 03/05/25 21:28 Dose: 17.2 mg Allergies Allergies Allergy/AdvReac Type Severity Reaction Status Date / Time No Known Allergies Allergy Verified 02/18/25 07:24 [No Known Allergies*] Assessment & Plan Assessment & Plan (1) MDD (major depressive disorder), recurrent severe, without psychosis: Status: Acute Code(s): F33.2 - Major depressive disorder, recurrent severe without psychotic features (2) Anxiety: Status: Acute Code(s): F41.9 - Anxiety disorder, unspecified Plan 54 year-old female with PMHx of Parkinson's with dyskinesia, metabolic encephalopathy, constipation, ulcerative colitis, GERD, IBS, 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 Patient called 911 saying she was short of breath but here in the ED she talked about wanting to . Patient reports that about a month ago, she stopped going to her therapist due to lack of insurance; she says she does not take medications regularly, runs out of them and does not get refills and has been off of her medications for about 2 months. She says that she was doing overall good enough and that depression would come and go. They however she has been feeling more down, tired of always being in pain. Patient explained contributory factors being chronic pain which says seems to have gotten worse recently (patient names almost every part of her body as painful: headaches, joints, stomach, legs, feet...each toe). Patient reports up until a week ago, she was living on her own in her own apartment but this past week she moved into a snf, saying she needed more support. Over these past few days she became more depressed. Once in the emergency room she says she started to think about ending it... Taking a bunch of pills... Patient explains concretely if I were home I would have done it because I had access to the pills... Here I do not have access to the pills. She reports Hx of SI but has never actually tried to; says usually the feeling passes; reports extreme anxiety since childhood; seems to endorse depressive episodes. -denies AVH or paranoid ideations; she does not know why she is prescribed risperidone -denies drug or alcohol use Formulation/clinical reasoning: Endorses depression and anxiety; has been off her medications which is likely contributory as well as chronic pain though not sure the cause; she says nothing has ever help with her pain before however agrees to start and try gabapentin. Patient with blunted affect and concrete; will seek to rule out ASD. Need collateral Hospital course: 02/21 still feeling down; still thinking of suicide but hopeful not to do it agrees to increase prozac to 40mg; also agrees to increased Gabapentin 300mg TID has not had a BM yet; says chronically has trouble pooping and has been constipated for years -agrees to Mirrilax 02/22 Patient reports that she is still depressed and still feeling suicidal though she reports SI is waning. No bowel movement. No medication side effects and agrees to titration 02/23 says still depressed and still with some SI remaining; agrees to increasing buproprion -still constipated 02/24 says still depressed; still with some SI; talked about anxiety as well. pt says no change in chronic body pain with gabapentin; agrees to titrate 02/25 no change in presentation; still depressed, still w/ some SI. Tried to discuss etiology of depression which she seems to say was sudden and did not have anything to do w/ moving into snf 02/[address] IMPRESSION:. No acute intracranial findings. 03/02 Patient had a tough weekend. There was some concern that she slurred her speech was confused or dizzy. Head CT negative. Today patient says she wants to that she is so sad.. And feels so unhappy. Patient is tearful and endorses SI. She can be hard to understand however when service writer advisor mentions this, she apologizes, slows down her speech and is understandable. She says she has pain everywhere from her head to her toes and everywhere in-between. She thinks maybe it was a little better last week and service writer advisor mentioned that her gabapentin had been significantly lowered over the weekend possibly out of concern for patient's dizziness. Patient says she has no formal diagnosis for pain. Form Presser discussed medication regimen with patient who agreed to discontinue Prozac, discontinue Wellbutrin, which have not seemed to help and instead start on Cymbalta which can help with both anxiety, depression as well as pain. Patient shuffling around and now reporting falls; service writer advisor inquired and she agreed she was not falling last week but says it is only change now due to the increase in pain. At this point, changes seem more due to behaviors rather than organic. Given that patient has a history of Parkinson's and for some reason a pain syndrome that seems undiagnosed, Neuro consult placed as well -will consider increasing gabapentin again -add cyclobenzaprine which she has been on in the past -reportedly patient has history of Parkinson's 03/03 Regarding SI, she says it is still remains; however, mood little better today; tolerating cymbalta 60mg and discussed med changes again. She said that Said due to her anxiety she has been a little snippy with people which she says she has talked to her therapist about Patient mentioned visual hallucinations; she explains to service writer advisor that says seeing like a painting on the wall, like people walking around... However with further inquiry, this only occurs when she is waking up from sleep and not otherwise. shine worker discussed with brother who says that this sounds like behavioral episodes patient has had the past Regarding body pain, she says it is actually a little better. She agrees to retry Flexeril to see if that is helpful. Patient complained of dysuria to nurse and asked for UA but was specific and wanting to be straight cathed. Patient had a significant volume of urine removed and is not sure if this is due to urinary retention or if patient is intentionally avoiding urinating; patient told service writer advisor she has intermittent history of urinary retention.. She also has been complaining about constipation however has been refusing laxatives/stool softeners. Form Presser discussed this and patient says she has long history of constipation and is worry about taking medications that will cause copious diarrhea, which happened once before when she laxatives. She agreed however that constipation needs to be relieved and said she would take medications. UA pending: unremarkable (bladder scan q shift w/ strait cath for CC>500) 03/04 Patient reports to service writer advisor that her mood is a little better and today no SI. Patient also says that her pain is a little bit better today. She is not sure Flexeril helped but agrees to have it scheduled. Patient up walking around the unit today without assistance. Patient remains with urinary retention via bladder scans. Will get consult. Later in the day service writer advisor met with patient again who was feeling more distraught and now saying she is not better at all. Patient says she feels marginalized because she has a disability. Discussed chronic pain with patient and her brother who was also present; patient remained vague about this issue and says she has just learned to deal with it; she is agreeing to increasing gabapentin. Also agrees to clonazepam -will 1st add clonazepam 0.5 mg b.i.d.; she has been on in the past and her anxiety seems to be a major contributor to her experience of pain and her ability to walk freely on her own. -will consider increasing gabapentin as well 03/05 pt says little better but still has SI, though she says it remains less. Pain not alleviated by scheduled flexeril. Pt explained she has a long hx of emotional lability. Agrees Clonazepam lowers anxiety, though it makes her tired. At this time she feels it's a welcomed break from anxiety. Also agrees to increase Gabapentin again, since it seemed to be helping, even if it too makes her tired. -still w/ urinary retention; PA recs to increase bladder scan to q6h and cath for CC>350; will monitor and get Urology consult if persists 03/06 Repeat labs Decrease Gabapentin to 200 mg tid Plan: CV Q 15 minute checks INCREASE to gabapentin 300 mg t.i.d. for chronic pain (reviewed risks/side- effects) Start Clonazepam 0.5 mg b.i.d. for anxiety; has been on in the past Swich to PRN Cyclobenzaprine 10 mg t.i.d.prn (with p.r.n.; patient has been on as high doses 20 mg) Cymbalta 60 mg DC fluoxetine DC Wellbutrin famotidine 20 mg b.i.d.; patient says she has chronic GERD risperidone 3 mg q.h.s. prazosin 1 mg q.h.s. Cogentin 0.5 mg b.i.d. Will order H pylori antigen stool test; patient says she has had intractable GERD for a long time; has never been tested for H pylori Reason for continued inpatient stay Substantial Risk for: rapid decompensation Time Spent With Patient Time: Total time managing care of this patient today ____ minutes.
[2025-03-06 07:57] VITALS: BP 106/56; PULSE 94; RESP 18; TEMP 36.4; O2SAT 95
[2025-03-06] MEDS: Famotidine 20 MG TABLET PO ×2 (08:50→20:42)
[2025-03-06] MEDS: Benztropine Mesylate 0.5 MG TABLET PO ×2 (08:50→20:43)
[2025-03-06] MEDS: DULoxetine HCl 60 MG CAPSULE.DR PO (08:50)
[2025-03-06] MEDS: Gabapentin 300 MG CAPSULE PO ×2 (08:50→15:15)
[2025-03-06] MEDS: Loratadine 10 MG TABLET PO (08:50)
[2025-03-06] MEDS: Atorvastatin Calcium 10 MG TABLET PO (08:50)
[2025-03-06] MEDS: clonazePAM 0.5 MG TABLET PO ×2 (08:50→15:15)
[2025-03-06] MEDS: Fluticasone Propionate Nasal 16 GM SPRAY 2 SPRAY NOSTRIL-B (08:56)
[2025-03-06] MEDS: Ondansetron ODT 4 MG TAB.RAPDIS TRANSLINGU (12:03)
[2025-03-06 12:15] VITALS: BP 112/68; PULSE 78; RESP 14; TEMP 36.4; O2SAT 94
[2025-03-06 12:42] LABS: MANUAL DIFF FLAG NO
[2025-03-06 12:45] LABS: Basophils Percent Auto 0.6 % (0-2); Eosinophils Absolute Auto 0.2 X10*3/uL (0.0-0.4); Eosinophils Percent Auto 3.4 % (0-4); Hematocrit 40.5 % (37.0-47.0); Imm Gran Abs Auto 0.03 X10*3/uL (0.00-0.03); Imm Gran Pct Auto 0.4 % (0.0-0.4); Lymphocytes Absolute Auto 2.5 X10*3/uL (1.2-4.9); Lymphocytes Percent Auto 35.8 % (20-40); Mean Corpuscular HGB Conc 32.1 g/dl (31.0-35.0); Mean Corpuscular Volume 87.1 fL (80.0-98.0); Mean Platelet Volume 9.8 fL (9.4-12.3); Monocytes Absolute Auto 0.5 X10*3/uL (0.1-1.2); Monocytes Percent Auto 7.3 % (2-11); Neutrophils Absolute Auto 3.7 x10*3/uL (2.0-8.3); Neutrophils Percent Auto 52.5 % (45-73); Platelet Count 326 X10*3/uL (160-400); Red Blood Count 4.65 X10*6/uL (4.20-5.50); Red Cell Distribution Width 15.6 % (11.0-16.0)
[2025-03-06 13:07] LABS: Alanine Aminotransferase 18 U/L (0-31); Albumin Level 4.2 g/dL (3.5-5.0); Alkaline Phosphatase 86 U/L (39-117); Anion Gap 14 (12-20); Aspartate Amino Transferase 20 U/L (5-31); Bilirubin Total 0.4 mg/dL (0.0-1.0); Blood Urea Nitrogen 20 mg/dL (9-16); Calcium 9.6 mg/dL (8.4-10.2); Carbon Dioxide 26 mmol/L (22-29); Chloride 107 mmol/L (96-108); Creatinine Clr Calc Pharmacy 66.3; Estimated Glomerular Filt Rate 60; Glucose Random 99 mg/dL (60-115); Potassium 4.5 mmol/L (3.3-5.1); Sodium 142 mmol/L (135-145); Total Protein 7.4 g/dL (6.5-8.0)
[2025-03-06 13:15] LABS: Ammonia 26 umol/L (13-55)
[2025-03-06 19:41] VITALS: BP 102/64; RESP 86; TEMP 36.5; O2SAT 96
[2025-03-06] MEDS: risperiDONE Oral Sol 1 MG/ML SOLUTION 3 MG PO (20:42)
[2025-03-06 20:43] VITALS: BP 102/64
[2025-03-06] MEDS: Sennosides 8.6 MG TABLET 17.2 MG PO (20:43)
[2025-03-06] MEDS: Gabapentin 100 MG CAPSULE 200 MG PO (20:43)
[2025-03-06] MEDS: Prazosin HCL 1 MG CAPSULE PO (20:43)
--- NOTE | 2025-03-07 05:52 | P.PNPSI_ITS ---
Subjective Subjective Date of Service: 03/07/25 Reason For Visit: Depression Interim History: Pt seen and discussed with the team. Slept 8 hours. One to one remains. Speech is improved today, she presents with clearer process. able to shower, in milieu with peers. Straight cath q6 if scan is +350. Pt able to urinate on her own more today. No culture growth at this time Medication Compliance: Yes Side effects from medications: Yes (??) Attending Groups: Intermittent Review of Systems as noted-urinary retention Review of Systems Review of Systems urinary retention Mental Status Exam Mental Status Exam Patient Appearance: Appropriate Patient Orientation: Person, Place and Situation Level of Consciousness: Alert Patient Behavior: Talkative and Passive Mood Description: Constricted Affect Description: Constricted Patient Cognition Impaired: No Ability to Follow Directions: Good Speech Pattern: Spontaneous Speech Memory Description: Episodic Impaired Hallucinations: None Delusions: Not Present Thought Process: Rumination (worry) Judgement: Fair Diagnostics Vital Signs (24Hr): Vital Signs - 24 hr 03/06/25 07:57 03/06/25 12:15 03/06/25 19:41 Temperature 97.6 F 97.6 F 97.7 F Pulse Rate 94 78 Respiratory Rate 18 14 86 H Blood Pressure 106/56 L 112/68 102/64 Pulse Oximetry 95 94 96 Oxygen Delivery Method Room Air Room Air Room Air 03/06/25 20:43 Temperature Pulse Rate Respiratory Rate Blood Pressure 102/64 Pulse Oximetry Oxygen Delivery Method BMI result Body Mass Index 25.4 Labs 03/06/25 12:37 03/06/25 12:37 Labs: Laboratory Results - last 48 hr 03/05/25 03/06/25 03/06/25 11:00 12:37 13:02 WBC 7.0 RBC 4.65 Hgb 13.0 Hct 40.5 MCV 87.1 MCH 28.0 MCHC 32.1 RDW 15.6 Plt Count 326 MPV 9.8 Immature Gran % (Auto) 0.4 Neut % (Auto) 52.5 Lymph % (Auto) 35.8 Park % (Auto) 7.3 Eos % (Auto) 3.4 Baso % (Auto) 0.6 Lymph # (Auto) 2.5 Park # (Auto) 0.5 Eos # (Auto) 0.2 Baso # (Auto) 0.0 Abs Immat Gran (auto) 0.03 Absolute Neuts (auto) 3.7 Absolute Nucleated RBC 0.000 Nucleated RBC % (auto) 0.0 Sodium 142 Potassium 4.5 Chloride 107 Carbon Dioxide 26 Anion Gap 14 BUN 20 H Creatinine 0.97 Estim Creat Clear Calc 66.3 Estimated GFR 60 Random Glucose 99 Calcium 9.6 Total Bilirubin 0.4 AST 20 ALT 18 Alkaline Phosphatase 86 Ammonia 26 Total Protein 7.4 Albumin 4.2 Stool H. pylori Ag SEE NOTE Imaging Radiology Impressions: ITS Impressions Chest X-Ray 02/18/25 09:58 IMPRESSION: Mild interstitial edema and bilateral pleural effusions, small to moderate volume, similar to slightly worsened since prior exam. Electronically signed by: Hamlet Stephens MD 02/18/2025 10:42 AM EDT RP Medications Medications Current Medications Acetaminophen (Acetaminophen 325 Mg Tablet) 650 mg PO Q6H PRN PRN Reason: Headache/Pain, Scale 1-10 Last Admin: 03/04/25 12:50 Dose: 325 mg Al Hydroxide/Mg Hydroxide (Magnesium Hydrox/Alum Hydrox 30 Ml Oral.Susp) 30 ml PO Q6H PRN PRN Reason: Heartburn/Nausea Atorvastatin Calcium (Atorvastatin Calcium 10 Mg Tablet) 10 mg PO DAILY [facility] Last Admin: 03/06/25 08:50 Dose: 10 mg Benztropine Mesylate (Benztropine Mesylate 0.5 Mg Tablet) 0.5 mg PO BID [facility] Last Admin: 03/06/25 20:43 Dose: 0.5 mg Clonazepam (Clonazepam 0.5 Mg Tablet) 0.5 mg PO BID@0900,1400 [facility] Last Admin: 03/06/25 15:15 Dose: 0.5 mg Cyclobenzaprine HCl (Cyclobenzaprine Hcl 10 Mg Tablet) 10 mg PO TID PRN PRN Reason: Muscle Spasm/aches Docusate Sodium (Docusate Sodium 100 Mg Capsule) 100 mg PO DAILY PRN PRN Reason: constipation Last Admin: 03/01/25 09:11 Dose: 100 mg Duloxetine HCl (Duloxetine Hcl 60 Mg Capsule.Dr) 60 mg PO DAILY [facility] Last Admin: 03/06/25 08:50 Dose: 60 mg Famotidine (Famotidine 20 Mg Tablet) 20 mg PO BID [facility] Last Admin: 03/06/25 20:42 Dose: 20 mg Fluticasone Propionate (Fluticasone Propionate Nasal 16 Gm [place]) 2 spray NOSTRIL-B DAILY [facility] Last Admin: 03/06/25 08:56 Dose: 2 spray Gabapentin (Gabapentin 100 Mg Capsule) 200 mg PO TID [facility] Last Admin: 03/06/25 20:43 Dose: 200 mg Hydrocortisone (Hydrocortisone 2.5 % Rectal Cr 30 Gm Tube) 1 appl MS Q6H PRN PRN Reason: Hemorrhoids Hydroxyzine HCl (Hydroxyzine Hcl 25 Mg Tablet) 25 mg PO Q6H PRN PRN Reason: mild anxiety Loratadine (Loratadine 10 Mg Tablet) 10 mg PO DAILY [facility] Last Admin: 03/06/25 08:50 Dose: 10 mg Magnesium Hydroxide (Milk Of Magnesia 30 Ml Oral.Susp) 30 ml PO DAILY PRN PRN Reason: Constipation Last Admin: 03/01/25 17:51 Dose: 30 ml Naproxen (Naproxen 500 Mg Tablet) 500 mg PO BID PRN PRN Reason: Pain (Scale Score 1-3) Last Admin: 03/01/25 09:11 Dose: 500 mg Nicotine Polacrilex (Nicotine Polacrilex 2 Mg Gum) 4 mg BUCCAL Q2H PRN PRN Reason: Nicotine Cravings Omeprazole (Omeprazole 40 Mg Capsule.Dr) 40 mg PO BID@0630,1630 [facility] Last Admin: 03/06/25 15:52 Dose: 40 mg Ondansetron HCl (Ondansetron Odt 4 Mg Tab.Rapdis) 4 mg TRANSLINGU Q8H PRN PRN Reason: Nausea and Vomiting Last Admin: 03/06/25 12:03 Dose: 4 mg Polyethylene Glycol (Polyethylene Glycol 3350 17 Gm Powd.Pack) 17 gm PO DAILY PRN PRN Reason: Constipation Last Admin: 03/01/25 09:56 Dose: 17 gm Polyethylene Glycol (Polyethylene Glycol 3350 17 Gm Powd.Pack) 17 gm PO DAILY [facility] Last Admin: 03/06/25 08:52 Dose: Not Given Prazosin HCl (Prazosin Hcl 1 Mg Capsule) 1 mg PO BEDTIME [facility]; Protocol Last Admin: 03/06/25 20:43 Dose: 1 mg Risperidone (Risperidone Oral [place] 1 Mg/Ml Solution) 3 mg PO BEDTIME [facility] Last Admin: 03/06/25 20:42 Dose: 3 mg Senna (Sennosides 8.6 Mg Tablet) 17.2 mg PO BEDTIME [facility] Last Admin: 03/06/25 20:43 Dose: 17.2 mg Allergies Allergies Allergy/AdvReac Type Severity Reaction Status Date / Time No Known Allergies Allergy Verified 02/18/25 07:24 [No Known Allergies*] Assessment & Plan Assessment & Plan (1) MDD (major depressive disorder), recurrent severe, without psychosis: Status: Acute Code(s): F33.2 - Major depressive disorder, recurrent severe without psychotic features (2) Anxiety: Status: Acute Code(s): F41.9 - Anxiety disorder, unspecified Plan 54 year-old female with PMHx of Parkinson's with dyskinesia, metabolic encephalopathy, constipation, ulcerative colitis, GERD, IBS, 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 Patient called 911 saying she was short of breath but here in the ED she talked about wanting to . Patient reports that about a month ago, she stopped going to her therapist due to lack of insurance; she says she does not take medications regularly, runs out of them and does not get refills and has been off of her medications for about 2 months. She says that she was doing overall good enough and that depression would come and go. They however she has been feeling more down, tired of always being in pain. Patient explained contributory factors being chronic pain which says seems to have gotten worse recently (patient names almost every part of her body as painful: headaches, joints, stomach, legs, feet...each toe). Patient reports up until a week ago, she was living on her own in her own apartment but this past week she moved into a [facility], saying she needed more support. Over these past few days she became more depressed. Once in the emergency room she says she started to think about ending it... Taking a bunch of pills... Patient explains concretely if I were home I would have done it because I had access to the pills... Here I do not have access to the pills. She reports Hx of SI but has never actually tried to; says usually the feeling passes; reports extreme anxiety since childhood; seems to endorse depressive episodes. -denies AVH or paranoid ideations; she does not know why she is prescribed risperidone -denies drug or alcohol use Formulation/clinical reasoning: Endorses depression and anxiety; has been off her medications which is likely contributory as well as chronic pain though not sure the cause; she says nothing has ever help with her pain before however agrees to start and try gabapentin. Patient with blunted affect and concrete; will seek to rule out ASD. Need collateral Hospital course: 02/21 still feeling down; still thinking of suicide but hopeful not to do it agrees to increase prozac to 40mg; also agrees to increased Gabapentin 300mg TID has not had a BM yet; says chronically has trouble pooping and has been constipated for years -agrees to Mirrilax 02/22 Patient reports that she is still depressed and still feeling suicidal though she reports SI is waning. No bowel movement. No medication side effects and agrees to titration 02/23 says still depressed and still with some SI remaining; agrees to increasing buproprion -still constipated 02/24 says still depressed; still with some SI; talked about anxiety as well. pt says no change in chronic body pain with gabapentin; agrees to titrate 02/25 no change in presentation; still depressed, still w/ some SI. Tried to discuss etiology of depression which she seems to say was sudden and did not have anything to do w/ moving into [facility] 02/[address] IMPRESSION:. No acute intracranial findings. 03/02 Patient had a tough weekend. There was some concern that she slurred her speech was confused or dizzy. Head CT negative. Today patient says she wants to that she is so sad.. And feels so unhappy. Patient is tearful and endorses SI. She can be hard to understand however when loan underwriter mentions this, she apologizes, slows down her speech and is understandable. She says she has pain everywhere from her head to her toes and everywhere in-between. She thinks maybe it was a little better last week and loan underwriter mentioned that her gabapentin had been significantly lowered over the weekend possibly out of concern for patient's dizziness. Patient says she has no formal diagnosis for pain. Medical Assembler discussed medication regimen with patient who agreed to discontinue Prozac, discontinue Wellbutrin, which have not seemed to help and instead start on Cymbalta which can help with both anxiety, depression as well as pain. Patient shuffling around and now reporting falls; loan underwriter inquired and she agreed she was not falling last week but says it is only change now due to the increase in pain. At this point, changes seem more due to behaviors rather than organic. Given that patient has a history of Parkinson's and for some reason a pain syndrome that seems undiagnosed, Neuro consult placed as well -will consider increasing gabapentin again -add cyclobenzaprine which she has been on in the past -reportedly patient has history of Parkinson's 03/03 Regarding SI, she says it is still remains; however, mood little better today; tolerating cymbalta 60mg and discussed med changes again. She said that Said due to her anxiety she has been a little snippy with people which she says she has talked to her therapist about Patient mentioned visual hallucinations; she explains to loan underwriter that says seeing like a painting on the wall, like people walking around... However with further inquiry, this only occurs when she is waking up from sleep and not otherwise. hot stick worker discussed with brother who says that this sounds like behavioral episodes patient has had the past Regarding body pain, she says it is actually a little better. She agrees to retry Flexeril to see if that is helpful. Patient complained of dysuria to nurse and asked for UA but was specific and wanting to be straight cathed. Patient had a significant volume of urine removed and is not sure if this is due to urinary retention or if patient is intentionally avoiding urinating; patient told loan underwriter she has intermittent history of urinary retention.. She also has been complaining about constipation however has been refusing laxatives/stool softeners. Medical Assembler discussed this and patient says she has long history of constipation and is worry about taking medications that will cause copious diarrhea, which happened once before when she laxatives. She agreed however that constipation needs to be relieved and said she would take medications. UA pending: unremarkable (bladder scan q shift w/ strait cath for CC>500) 03/04 Patient reports to loan underwriter that her mood is a little better and today no SI. Patient also says that her pain is a little bit better today. She is not sure Flexeril helped but agrees to have it scheduled. Patient up walking around the unit today without assistance. Patient remains with urinary retention via bladder scans. Will get consult. Later in the day loan underwriter met with patient again who was feeling more distraught and now saying she is not better at all. Patient says she feels marginalized because she has a disability. Discussed chronic pain with patient and her brother who was also present; patient remained vague about this issue and says she has just learned to deal with it; she is agreeing to increasing gabapentin. Also agrees to clonazepam -will 1st add clonazepam 0.5 mg b.i.d.; she has been on in the past and her anxiety seems to be a major contributor to her experience of pain and her ability to walk freely on her own. -will consider increasing gabapentin as well 03/05 pt says little better but still has SI, though she says it remains less. Pain not alleviated by scheduled flexeril. Pt explained she has a long hx of emotional lability. Agrees Clonazepam lowers anxiety, though it makes her tired. At this time she feels it's a welcomed break from anxiety. Also agrees to increase Gabapentin again, since it seemed to be helping, even if it too makes her tired. -still w/ urinary retention; PA recs to increase bladder scan to q6h and cath for CC>350; will monitor and get Urology consult if persists 03/07- Continue plan Urology consult Plan: CV Q 15 minute checks INCREASE to gabapentin 300 mg t.i.d. for chronic pain (reviewed risks/side- effects) Start Clonazepam 0.5 mg b.i.d. for anxiety; has been on in the past Swich to PRN Cyclobenzaprine 10 mg t.i.d.prn (with p.r.n.; patient has been on as high doses 20 mg) Cymbalta 60 mg DC fluoxetine DC Wellbutrin famotidine 20 mg b.i.d.; patient says she has chronic GERD risperidone 3 mg q.h.s. prazosin 1 mg q.h.s. Cogentin 0.5 mg b.i.d. Will order H pylori antigen stool test; patient says she has had intractable GERD for a long time; has never been tested for H pylori Reason for continued inpatient stay Substantial Risk for: rapid decompensation and med/psych decompensation Time Spent With Patient Time: Total time managing care of this patient today ____ minutes.
[2025-03-07] MEDS: Omeprazole 40 MG CAPSULE.DR PO ×2 (06:25→15:53)
[2025-03-07 08:00] VITALS: BP 92/53; PULSE 80; RESP 18; TEMP 36.7; O2SAT 95
[2025-03-07] MEDS: Famotidine 20 MG TABLET PO ×2 (08:54→20:56)
[2025-03-07] MEDS: Benztropine Mesylate 0.5 MG TABLET PO ×2 (08:54→20:56)
[2025-03-07] MEDS: DULoxetine HCl 60 MG CAPSULE.DR PO (08:54)
[2025-03-07] MEDS: Atorvastatin Calcium 10 MG TABLET PO (08:54)
[2025-03-07] MEDS: Gabapentin 100 MG CAPSULE 200 MG PO ×3 (08:55→20:56)
[2025-03-07] MEDS: Loratadine 10 MG TABLET PO (08:55)
[2025-03-07] MEDS: clonazePAM 0.5 MG TABLET PO ×2 (08:55→14:18)
[2025-03-07] MEDS: Fluticasone Propionate Nasal 16 GM SPRAY 2 SPRAY NOSTRIL-B (08:56)
[2025-03-07] MEDS: polyethylene glycoL 3350 17 GM POWD.PACK PO (08:58)
[2025-03-07 19:44] VITALS: BP 122/58; PULSE 118; TEMP 36.8; O2SAT 96
[2025-03-07] MEDS: Sennosides 8.6 MG TABLET 17.2 MG PO (20:56)
[2025-03-07] MEDS: Prazosin HCL 1 MG CAPSULE PO (20:56)
[2025-03-07] MEDS: risperiDONE Oral Sol 1 MG/ML SOLUTION 3 MG PO (20:59)
[2025-03-08] MEDS: Omeprazole 40 MG CAPSULE.DR PO ×2 (06:15→17:06)
[2025-03-08 08:00] VITALS: BP 99/67; PULSE 95; TEMP 36.4; O2SAT 95
[2025-03-08] MEDS: Gabapentin 100 MG CAPSULE 200 MG PO ×3 (09:12→20:30)
[2025-03-08] MEDS: Loratadine 10 MG TABLET PO (09:12)
[2025-03-08] MEDS: Famotidine 20 MG TABLET PO ×2 (09:13→20:30)
[2025-03-08] MEDS: Benztropine Mesylate 0.5 MG TABLET PO ×2 (09:13→20:29)
[2025-03-08] MEDS: DULoxetine HCl 60 MG CAPSULE.DR PO (09:13)
[2025-03-08] MEDS: clonazePAM 0.5 MG TABLET PO ×2 (09:13→13:27)
[2025-03-08] MEDS: Atorvastatin Calcium 10 MG TABLET PO (09:13)
[2025-03-08] MEDS: polyethylene glycoL 3350 17 GM POWD.PACK PO (09:46)
[2025-03-08] MEDS: Fluticasone Propionate Nasal 16 GM SPRAY 2 SPRAY NOSTRIL-B (09:47)
--- NOTE | 2025-03-08 10:39 | P.PNPSI_ITS ---
Subjective Subjective Date of Service: 03/08/25 Reason For Visit: Depression Interim History: met with patient; discussed with team; reviewed chart mood is lousy...i've been miserable all my life.. pt says the pain is the same pt went to a couple groups but said she didn't get anything out of it. Talked about medications and pt says I think therapy is better than pills... despite lousy mood pt has given some thought about discharge...has showered, is now walking on her own and off 1:1, urinating on her own and not needing straight cath Mental Status Exam Mental Status Exam Narrative: Pt is alert and oriented; behavior is more calm, in the milieu, on her own walking around; dressed in casual attire with adequate hygiene, having showered; glasses, appears older than chronological age; mood is described as lousy and affect congruent, downcast; eye contact a little avoidant; Speech is mumbled (which is baseline) but she can slow down and articulate; normal volume; some psychomotor retardation present; thought process is goal directed, concrete; Thought content is on dealing with pain and depression; no delusional ideations expressed; no SI/no HI; no AVH. Patients insight and judgment impaired but improving Diagnostics Vital Signs (24Hr): Vital Signs - 24 hr 03/07/25 19:44 03/08/25 08:00 Temperature 98.2 F 97.5 F Pulse Rate 118 H 95 Blood Pressure 122/58 L 99/67 Pulse Oximetry 96 95 Oxygen Delivery Method Room Air Room Air BMI result Body Mass Index 25.4 Labs 03/06/25 12:37 03/06/25 12:37 Labs: Laboratory Results - last 48 hr 03/05/25 03/06/25 03/06/25 11:00 12:37 13:02 WBC 7.0 RBC 4.65 Hgb 13.0 Hct 40.5 MCV 87.1 MCH 28.0 MCHC 32.1 RDW 15.6 Plt Count 326 MPV 9.8 Immature Gran % (Auto) 0.4 Neut % (Auto) 52.5 Lymph % (Auto) 35.8 [place] % (Auto) 7.3 Eos % (Auto) 3.4 Baso % (Auto) 0.6 Lymph # (Auto) 2.5 [place] # (Auto) 0.5 Eos # (Auto) 0.2 Baso # (Auto) 0.0 Abs Immat Gran (auto) 0.03 Absolute Neuts (auto) 3.7 Absolute Nucleated RBC 0.000 Nucleated RBC % (auto) 0.0 Sodium 142 Potassium 4.5 Chloride 107 Carbon Dioxide 26 Anion Gap 14 BUN 20 H Creatinine 0.97 Estim Creat Clear Calc 66.3 Estimated GFR 60 Random Glucose 99 Calcium 9.6 Total Bilirubin 0.4 AST 20 ALT 18 Alkaline Phosphatase 86 Ammonia 26 Total Protein 7.4 Albumin 4.2 Stool H. pylori Ag SEE NOTE Imaging Radiology Impressions: ITS Impressions Chest X-Ray 02/18/25 09:58 IMPRESSION: Mild interstitial edema and bilateral pleural effusions, small to moderate volume, similar to slightly worsened since prior exam. Electronically signed by: Hamlet Stephens MD 02/18/2025 10:42 AM EDT RP Medications Medications Current Medications Acetaminophen (Acetaminophen 325 Mg Tablet) 650 mg PO Q6H PRN PRN Reason: Headache/Pain, Scale 1-10 Last Admin: 03/04/25 12:50 Dose: 325 mg Al Hydroxide/Mg Hydroxide (Magnesium Hydrox/Alum Hydrox 30 Ml Oral.Susp) 30 ml PO Q6H PRN PRN Reason: Heartburn/Nausea Atorvastatin Calcium (Atorvastatin Calcium 10 Mg Tablet) 10 mg PO DAILY [facility] Last Admin: 03/08/25 09:13 Dose: 10 mg Benztropine Mesylate (Benztropine Mesylate 0.5 Mg Tablet) 0.5 mg PO BID [facility] Last Admin: 03/08/25 09:13 Dose: 0.5 mg Clonazepam (Clonazepam 0.5 Mg Tablet) 0.5 mg PO BID@0900,1400 [facility] Last Admin: 03/08/25 09:13 Dose: 0.5 mg Cyclobenzaprine HCl (Cyclobenzaprine Hcl 10 Mg Tablet) 10 mg PO TID PRN PRN Reason: Muscle Spasm/aches Docusate Sodium (Docusate Sodium 100 Mg Capsule) 100 mg PO DAILY PRN PRN Reason: constipation Last Admin: 03/01/25 09:11 Dose: 100 mg Duloxetine HCl (Duloxetine Hcl 60 Mg Capsule.Dr) 60 mg PO DAILY [facility] Last Admin: 03/08/25 09:13 Dose: 60 mg Famotidine (Famotidine 20 Mg Tablet) 20 mg PO BID [facility] Last Admin: 03/08/25 09:13 Dose: 20 mg Fluticasone Propionate (Fluticasone Propionate Nasal 16 Gm Ferrum) 2 spray NOSTRIL-B DAILY [facility] Last Admin: 03/08/25 09:47 Dose: 2 spray Gabapentin (Gabapentin 100 Mg Capsule) 200 mg PO TID [facility] Last Admin: 03/08/25 09:12 Dose: 200 mg Hydrocortisone (Hydrocortisone 2.5 % Rectal Cr 30 Gm Tube) 1 appl MA Q6H PRN PRN Reason: Hemorrhoids Hydroxyzine HCl (Hydroxyzine Hcl 25 Mg Tablet) 25 mg PO Q6H PRN PRN Reason: mild anxiety Loratadine (Loratadine 10 Mg Tablet) 10 mg PO DAILY [facility] Last Admin: 03/08/25 09:12 Dose: 10 mg Magnesium Hydroxide (Milk Of Magnesia 30 Ml Oral.Susp) 30 ml PO DAILY PRN PRN Reason: Constipation Last Admin: 03/01/25 17:51 Dose: 30 ml Naproxen (Naproxen 500 Mg Tablet) 500 mg PO BID PRN PRN Reason: Pain (Scale Score 1-3) Last Admin: 03/01/25 09:11 Dose: 500 mg Nicotine Polacrilex (Nicotine Polacrilex 2 Mg Gum) 4 mg BUCCAL Q2H PRN PRN Reason: Nicotine Cravings Omeprazole (Omeprazole 40 Mg Capsule.Dr) 40 mg PO BID@0630,1630 [facility] Last Admin: 03/08/25 06:15 Dose: 40 mg Ondansetron HCl (Ondansetron Odt 4 Mg Tab.Rapdis) 4 mg TRANSLINGU Q8H PRN PRN Reason: Nausea and Vomiting Last Admin: 03/06/25 12:03 Dose: 4 mg Polyethylene Glycol (Polyethylene Glycol 3350 17 Gm Powd.Pack) 17 gm PO DAILY PRN PRN Reason: Constipation Last Admin: 03/01/25 09:56 Dose: 17 gm Polyethylene Glycol (Polyethylene Glycol 3350 17 Gm Powd.Pack) 17 gm PO DAILY [facility] Last Admin: 03/08/25 09:46 Dose: 17 gm Prazosin HCl (Prazosin Hcl 1 Mg Capsule) 1 mg PO BEDTIME [facility]; Protocol Last Admin: 03/07/25 20:56 Dose: 1 mg Risperidone (Risperidone Oral Lindsay 1 Mg/Ml Solution) 3 mg PO BEDTIME [facility] Last Admin: 03/07/25 20:59 Dose: 3 mg Senna (Sennosides 8.6 Mg Tablet) 17.2 mg PO BEDTIME [facility] Last Admin: 03/07/25 20:56 Dose: 17.2 mg Allergies Allergies Allergy/AdvReac Type Severity Reaction Status Date / Time No Known Allergies Allergy Verified 02/18/25 07:24 [No Known Allergies*] Assessment & Plan Assessment & Plan (1) MDD (major depressive disorder), recurrent severe, without psychosis: Status: Acute Code(s): F33.2 - Major depressive disorder, recurrent severe without psychotic features (2) Anxiety: Status: Acute Code(s): F41.9 - Anxiety disorder, unspecified Plan 54 year-old female with PMHx of Parkinson's with dyskinesia, metabolic encephalopathy, constipation, ulcerative colitis, GERD, IBS, 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 Patient called 911 saying she was short of breath but here in the ED she talked about wanting to . Patient reports that about a month ago, she stopped going to her therapist due to lack of insurance; she says she does not take medications regularly, runs out of them and does not get refills and has been off of her medications for about 2 months. She says that she was doing overall good enough and that depression would come and go. They however she has been feeling more down, tired of always being in pain. Patient explained contributory factors being chronic pain which says seems to have gotten worse recently (patient names almost every part of her body as painful: headaches, joints, stomach, legs, feet...each toe). Patient reports up until a week ago, she was living on her own in her own apartment but this past week she moved into a jail, saying she needed more support. Over these past few days she became more depressed. Once in the emergency room she says she started to think about ending it... Taking a bunch of pills... Patient explains concretely if I were home I would have done it because I had access to the pills... Here I do not have access to the pills. She reports Hx of SI but has never actually tried to; says usually the feeling passes; reports extreme anxiety since childhood; seems to endorse depressive episodes. -denies AVH or paranoid ideations; she does not know why she is prescribed risperidone -denies drug or alcohol use Formulation/clinical reasoning: Endorses depression and anxiety; has been off her medications which is likely contributory as well as chronic pain though not sure the cause; she says nothing has ever help with her pain before however agrees to start and try gabapentin. Patient with blunted affect and concrete; will seek to rule out ASD. Need collateral Hospital course: 02/21 still feeling down; still thinking of suicide but hopeful not to do it agrees to increase prozac to 40mg; also agrees to increased Gabapentin 300mg TID has not had a BM yet; says chronically has trouble pooping and has been constipated for years -agrees to Mirrilax 02/22 Patient reports that she is still depressed and still feeling suicidal though she reports SI is waning. No bowel movement. No medication side effects and agrees to titration 02/23 says still depressed and still with some SI remaining; agrees to increasing buproprion -still constipated 02/24 says still depressed; still with some SI; talked about anxiety as well. pt says no change in chronic body pain with gabapentin; agrees to titrate 02/25 no change in presentation; still depressed, still w/ some SI. Tried to discuss etiology of depression which she seems to say was sudden and did not have anything to do w/ moving into jail 02/[address] IMPRESSION:. No acute intracranial findings. 03/02 Patient had a tough weekend. There was some concern that she slurred her speech was confused or dizzy. Head CT negative. Today patient says she wants to that she is so sad.. And feels so unhappy. Patient is tearful and endorses SI. She can be hard to understand however when video game script writer mentions this, she apologizes, slows down her speech and is understandable. She says she has pain everywhere from her head to her toes and everywhere in-between. She thinks maybe it was a little better last week and video game script writer mentioned that her gabapentin had been significantly lowered over the weekend possibly out of concern for patient's dizziness. Patient says she has no formal diagnosis for pain. Commercial Loan Administrator discussed medication regimen with patient who agreed to discontinue Prozac, discontinue Wellbutrin, which have not seemed to help and instead start on Cymbalta which can help with both anxiety, depression as well as pain. Patient shuffling around and now reporting falls; video game script writer inquired and she agreed she was not falling last week but says it is only change now due to the increase in pain. At this point, changes seem more due to behaviors rather than organic. Given that patient has a history of Parkinson's and for some reason a pain syndrome that seems undiagnosed, Neuro consult placed as well -will consider increasing gabapentin again -add cyclobenzaprine which she has been on in the past -reportedly patient has history of Parkinson's 03/03 Regarding SI, she says it is still remains; however, mood little better today; tolerating cymbalta 60mg and discussed med changes again. She said that Said due to her anxiety she has been a little snippy with people which she says she has talked to her therapist about Patient mentioned visual hallucinations; she explains to video game script writer that says seeing like a painting on the wall, like people walking around... However with further inquiry, this only occurs when she is waking up from sleep and not otherwise. silver spray worker discussed with brother who says that this sounds like behavioral episodes patient has had the past Regarding body pain, she says it is actually a little better. She agrees to retry Flexeril to see if that is helpful. Patient complained of dysuria to nurse and asked for UA but was specific and wanting to be straight cathed. Patient had a significant volume of urine removed and is not sure if this is due to urinary retention or if patient is intentionally avoiding urinating; patient told video game script writer she has intermittent history of urinary retention.. She also has been complaining about constipation however has been refusing laxatives/stool softeners. Commercial Loan Administrator discussed this and patient says she has long history of constipation and is worry about taking medications that will cause copious diarrhea, which happened once before when she laxatives. She agreed however that constipation needs to be relieved and said she would take medications. UA pending: unremarkable (bladder scan q shift w/ strait cath for CC>500) 03/04 Patient reports to video game script writer that her mood is a little better and today no SI. Patient also says that her pain is a little bit better today. She is not sure Flexeril helped but agrees to have it scheduled. Patient up walking around the unit today without assistance. Patient remains with urinary retention via bladder scans. Will get consult. Later in the day video game script writer met with patient again who was feeling more distraught and now saying she is not better at all. Patient says she feels marginalized because she has a disability. Discussed chronic pain with patient and her brother who was also present; patient remained vague about this issue and says she has just learned to deal with it; she is agreeing to increasing gabapentin. Also agrees to clonazepam -will 1st add clonazepam 0.5 mg b.i.d.; she has been on in the past and her anxiety seems to be a major contributor to her experience of pain and her ability to walk freely on her own. -will consider increasing gabapentin as well 03/05 pt says little better but still has SI, though she says it remains less. Pain not alleviated by scheduled flexeril. Pt explained she has a long hx of emotional lability. Agrees Clonazepam lowers anxiety, though it makes her tired. At this time she feels it's a welcomed break from anxiety. Also agrees to increase Gabapentin again, since it seemed to be helping, even if it too makes her tired. -still w/ urinary retention; PA recs to increase bladder scan to q6h and cath for CC>350; will monitor and get Urology consult if persists 03/07- Continue plan Urology consult 03/08 mood is lousy...i've been miserable all my life.. pt says the pain is the same pt went to a couple groups but said she didn't get anything out of it. Talked about medications and pt says I think therapy is better than pills... despite lousy mood pt has given some thought about discharge...has showered, is now walking on her own and off 1:1, urinating on her own and not needing straight cath Plan: CV Q 15 minute checks Continue gabapentin 200 mg t.i.d. for chronic pain (reviewed risks/side-effects) Continue Clonazepam 0.5 mg b.i.d. for anxiety; has been on in the past Swich to PRN Cyclobenzaprine 10 mg t.i.d.prn (with p.r.n.; patient has been on as high doses 20 mg) Continue Cymbalta 60 mg DC fluoxetine DC Wellbutrin famotidine 20 mg b.i.d.; patient says she has chronic GERD risperidone 3 mg q.h.s. prazosin 1 mg q.h.s. Cogentin 0.5 mg b.i.d. Will order H pylori antigen stool test (patient has refused to comply); patient says she has had intractable GERD for a long time; has never been tested for H pylori Patient educated on: diagnosis, medication risk/benefits and medical condition Informed Consent: understands Reason for continued inpatient stay Substantial Risk for: rapid decompensation Time Spent With Patient Time: Total time managing care of this patient today ____ minutes.
[2025-03-08 19:36] VITALS: BP 121/72; PULSE 104; TEMP 37.3; O2SAT 98
[2025-03-08] MEDS: Sennosides 8.6 MG TABLET 17.2 MG PO (20:29)
[2025-03-08] MEDS: risperiDONE Oral Sol 1 MG/ML SOLUTION 3 MG PO (20:30)
[2025-03-08] MEDS: Prazosin HCL 1 MG CAPSULE PO (20:30)
[2025-03-09 08:00] VITALS: BP 94/54; PULSE 85; RESP 14; TEMP 36.9; O2SAT 95
[2025-03-09] MEDS: polyethylene glycoL 3350 17 GM POWD.PACK PO (08:33)
[2025-03-09] MEDS: Loratadine 10 MG TABLET PO (08:34)
[2025-03-09] MEDS: Gabapentin 100 MG CAPSULE 200 MG PO ×3 (08:34→20:35)
[2025-03-09] MEDS: Benztropine Mesylate 0.5 MG TABLET PO ×2 (08:34→20:35)
[2025-03-09] MEDS: Famotidine 20 MG TABLET PO ×2 (08:34→20:35)
[2025-03-09] MEDS: Omeprazole 40 MG CAPSULE.DR PO ×2 (08:34→17:00)
[2025-03-09] MEDS: Atorvastatin Calcium 10 MG TABLET PO (08:34)
[2025-03-09] MEDS: DULoxetine HCl 60 MG CAPSULE.DR PO (08:34)
[2025-03-09] MEDS: clonazePAM 0.5 MG TABLET PO ×2 (08:35→14:48)
[2025-03-09] MEDS: Fluticasone Propionate Nasal 16 GM SPRAY 2 SPRAY NOSTRIL-B (09:05)
--- NOTE | 2025-03-09 10:03 | HO.PSYCHPN ---
Subjective Subjective Date of Service: 03/09/25 Reason For Visit: Depression Interim History: Met with patient; discussed with team Patient says I do not know when asked how she is doing which is somewhat of an improvement from yesterday. She remains out in the milieu, hanging around others though mostly keeping to herself. Walking fine, remains with no residual urine per bladder scan. Discussed aftercare and patient is amenable to day program Mental Status Exam Mental Status Exam Narrative: Pt is alert and oriented; behavior is more calm, in the milieu, on her own walking around; dressed in casual attire with adequate hygiene, having showered; glasses, appears older than chronological age; mood is described as I do not know and affect congruent, downcast; eye contact a little avoidant (baseline); Speech is mumbled (which is baseline) but she can slow down and articulate; normal volume; some psychomotor retardation present; thought process is goal directed, concrete; Thought content is on dealing with pain and depression; no delusional ideations expressed; no SI/no HI; no AVH. Patients insight and judgment impaired but improving Diagnostics Vital Signs (24Hr): Vital Signs - 24 hr 03/08/25 19:36 03/09/25 08:00 Temperature 99.1 F 98.4 F Pulse Rate 104 H 85 Respiratory Rate 14 Blood Pressure 121/72 94/54 L Pulse Oximetry 98 95 Oxygen Delivery Method Room Air Room Air BMI result Body Mass Index 25.4 Labs 03/06/25 12:37 03/06/25 12:37 Imaging Radiology Impressions: ITS Impressions Chest X-Ray 02/18/25 09:58 IMPRESSION: Mild interstitial edema and bilateral pleural effusions, small to moderate volume, similar to slightly worsened since prior exam. Electronically signed by: Hamlet Stephens MD 02/18/2025 10:42 AM EDT RP Medications Medications Current Medications Acetaminophen (Acetaminophen 325 Mg Tablet) 650 mg PO Q6H PRN PRN Reason: Headache/Pain, Scale 1-10 Last Admin: 03/04/25 12:50 Dose: 325 mg Al Hydroxide/Mg Hydroxide (Magnesium Hydrox/Alum Hydrox 30 Ml Oral.Susp) 30 ml PO Q6H PRN PRN Reason: Heartburn/Nausea Atorvastatin Calcium (Atorvastatin Calcium 10 Mg Tablet) 10 mg PO DAILY [facility] Last Admin: 03/09/25 08:34 Dose: 10 mg Benztropine Mesylate (Benztropine Mesylate 0.5 Mg Tablet) 0.5 mg PO BID [facility] Last Admin: 03/09/25 08:34 Dose: 0.5 mg Clonazepam (Clonazepam 0.5 Mg Tablet) 0.5 mg PO BID@0900,1400 [facility] Last Admin: 03/09/25 08:35 Dose: 0.5 mg Cyclobenzaprine HCl (Cyclobenzaprine Hcl 10 Mg Tablet) 10 mg PO TID PRN PRN Reason: Muscle Spasm/aches Docusate Sodium (Docusate Sodium 100 Mg Capsule) 100 mg PO DAILY PRN PRN Reason: constipation Last Admin: 03/01/25 09:11 Dose: 100 mg Duloxetine HCl (Duloxetine Hcl 60 Mg Capsule.Dr) 60 mg PO DAILY [facility] Last Admin: 03/09/25 08:34 Dose: 60 mg Famotidine (Famotidine 20 Mg Tablet) 20 mg PO BID [facility] Last Admin: 03/09/25 08:34 Dose: 20 mg Fluticasone Propionate (Fluticasone Propionate Nasal 16 Gm [place]) 2 spray NOSTRIL-B DAILY [facility] Last Admin: 03/09/25 09:05 Dose: 2 spray Gabapentin (Gabapentin 100 Mg Capsule) 200 mg PO TID [facility] Last Admin: 03/09/25 08:34 Dose: 200 mg Hydrocortisone (Hydrocortisone 2.5 % Rectal Cr 30 Gm Tube) 1 appl IN Q6H PRN PRN Reason: Hemorrhoids Hydroxyzine HCl (Hydroxyzine Hcl 25 Mg Tablet) 25 mg PO Q6H PRN PRN Reason: mild anxiety Loratadine (Loratadine 10 Mg Tablet) 10 mg PO DAILY [facility] Last Admin: 03/09/25 08:34 Dose: 10 mg Magnesium Hydroxide (Milk Of Magnesia 30 Ml Oral.Susp) 30 ml PO DAILY PRN PRN Reason: Constipation Last Admin: 03/01/25 17:51 Dose: 30 ml Naproxen (Naproxen 500 Mg Tablet) 500 mg PO BID PRN PRN Reason: Pain (Scale Score 1-3) Last Admin: 03/01/25 09:11 Dose: 500 mg Nicotine Polacrilex (Nicotine Polacrilex 2 Mg Gum) 4 mg BUCCAL Q2H PRN PRN Reason: Nicotine Cravings Omeprazole (Omeprazole 40 Mg Capsule.Dr) 40 mg PO BID@0630,1630 [facility] Last Admin: 03/09/25 08:34 Dose: 40 mg Ondansetron HCl (Ondansetron Odt 4 Mg Tab.Rapdis) 4 mg TRANSLINGU Q8H PRN PRN Reason: Nausea and Vomiting Last Admin: 03/06/25 12:03 Dose: 4 mg Polyethylene Glycol (Polyethylene Glycol 3350 17 Gm Powd.Pack) 17 gm PO DAILY PRN PRN Reason: Constipation Last Admin: 03/01/25 09:56 Dose: 17 gm Polyethylene Glycol (Polyethylene Glycol 3350 17 Gm Powd.Pack) 17 gm PO DAILY [facility] Last Admin: 03/09/25 08:33 Dose: 17 gm Prazosin HCl (Prazosin Hcl 1 Mg Capsule) 1 mg PO BEDTIME [facility]; Protocol Last Admin: 03/08/25 20:30 Dose: 1 mg Risperidone (Risperidone Oral Lindsay 1 Mg/Ml Solution) 3 mg PO BEDTIME [facility] Last Admin: 03/08/25 20:30 Dose: 3 mg Senna (Sennosides 8.6 Mg Tablet) 17.2 mg PO BEDTIME [facility] Last Admin: 03/08/25 20:29 Dose: 17.2 mg Allergies Allergies Allergy/AdvReac Type Severity Reaction Status Date / Time No Known Allergies Allergy Verified 02/18/25 07:24 [No Known Allergies*] Assessment & Plan Assessment & Plan (1) MDD (major depressive disorder), recurrent severe, without psychosis: Status: Acute Code(s): F33.2 - Major depressive disorder, recurrent severe without psychotic features (2) Anxiety: Status: Acute Code(s): F41.9 - Anxiety disorder, unspecified Plan 54 year-old female with PMHx of Parkinson's with dyskinesia, metabolic encephalopathy, constipation, ulcerative colitis, GERD, IBS, 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 Patient called 911 saying she was short of breath but here in the ED she talked about wanting to . Patient reports that about a month ago, she stopped going to her therapist due to lack of insurance; she says she does not take medications regularly, runs out of them and does not get refills and has been off of her medications for about 2 months. She says that she was doing overall good enough and that depression would come and go. They however she has been feeling more down, tired of always being in pain. Patient explained contributory factors being chronic pain which says seems to have gotten worse recently (patient names almost every part of her body as painful: headaches, joints, stomach, legs, feet...each toe). Patient reports up until a week ago, she was living on her own in her own apartment but this past week she moved into a [facility]ci, saying she needed more support. Over these past few days she became more depressed. Once in the emergency room she says she started to think about ending it... Taking a bunch of pills... Patient explains concretely if I were home I would have done it because I had access to the pills... Here I do not have access to the pills. She reports Hx of SI but has never actually tried to; says usually the feeling passes; reports extreme anxiety since childhood; seems to endorse depressive episodes. -denies AVH or paranoid ideations; she does not know why she is prescribed risperidone -denies drug or alcohol use Formulation/clinical reasoning: Endorses depression and anxiety; has been off her medications which is likely contributory as well as chronic pain though not sure the cause; she says nothing has ever help with her pain before however agrees to start and try gabapentin. Patient with blunted affect and concrete; will seek to rule out ASD. Need collateral Hospital course: 02/21 still feeling down; still thinking of suicide but hopeful not to do it agrees to increase prozac to 40mg; also agrees to increased Gabapentin 300mg TID has not had a BM yet; says chronically has trouble pooping and has been constipated for years -agrees to Mirrilax 02/22 Patient reports that she is still depressed and still feeling suicidal though she reports SI is waning. No bowel movement. No medication side effects and agrees to titration 02/23 says still depressed and still with some SI remaining; agrees to increasing buproprion -still constipated 02/24 says still depressed; still with some SI; talked about anxiety as well. pt says no change in chronic body pain with gabapentin; agrees to titrate 02/25 no change in presentation; still depressed, still w/ some SI. Tried to discuss etiology of depression which she seems to say was sudden and did not have anything to do w/ moving into fci 02/[address] IMPRESSION:. No acute intracranial findings. 03/02 Patient had a tough weekend. There was some concern that she slurred her speech was confused or dizzy. Head CT negative. Today patient says she wants to that she is so sad.. And feels so unhappy. Patient is tearful and endorses SI. She can be hard to understand however when sign writer letterer or painter mentions this, she apologizes, slows down her speech and is understandable. She says she has pain everywhere from her head to her toes and everywhere in-between. She thinks maybe it was a little better last week and sign writer letterer or painter mentioned that her gabapentin had been significantly lowered over the weekend possibly out of concern for patient's dizziness. Patient says she has no formal diagnosis for pain. Coffee Roaster discussed medication regimen with patient who agreed to discontinue Prozac, discontinue Wellbutrin, which have not seemed to help and instead start on Cymbalta which can help with both anxiety, depression as well as pain. Patient shuffling around and now reporting falls; sign writer letterer or painter inquired and she agreed she was not falling last week but says it is only change now due to the increase in pain. At this point, changes seem more due to behaviors rather than organic. Given that patient has a history of Parkinson's and for some reason a pain syndrome that seems undiagnosed, Neuro consult placed as well -will consider increasing gabapentin again -add cyclobenzaprine which she has been on in the past -reportedly patient has history of Parkinson's 03/03 Regarding SI, she says it is still remains; however, mood little better today; tolerating cymbalta 60mg and discussed med changes again. She said that Said due to her anxiety she has been a little snippy with people which she says she has talked to her therapist about Patient mentioned visual hallucinations; she explains to sign writer letterer or painter that says seeing like a painting on the wall, like people walking around... However with further inquiry, this only occurs when she is waking up from sleep and not otherwise. flow worker discussed with brother who says that this sounds like behavioral episodes patient has had the past Regarding body pain, she says it is actually a little better. She agrees to retry Flexeril to see if that is helpful. Patient complained of dysuria to nurse and asked for UA but was specific and wanting to be straight cathed. Patient had a significant volume of urine removed and is not sure if this is due to urinary retention or if patient is intentionally avoiding urinating; patient told sign writer letterer or painter she has intermittent history of urinary retention.. She also has been complaining about constipation however has been refusing laxatives/stool softeners. Coffee Roaster discussed this and patient says she has long history of constipation and is worry about taking medications that will cause copious diarrhea, which happened once before when she laxatives. She agreed however that constipation needs to be relieved and said she would take medications. UA pending: unremarkable (bladder scan q shift w/ strait cath for CC>500) 03/04 Patient reports to sign writer letterer or painter that her mood is a little better and today no SI. Patient also says that her pain is a little bit better today. She is not sure Flexeril helped but agrees to have it scheduled. Patient up walking around the unit today without assistance. Patient remains with urinary retention via bladder scans. Will get consult. Later in the day sign writer letterer or painter met with patient again who was feeling more distraught and now saying she is not better at all. Patient says she feels marginalized because she has a disability. Discussed chronic pain with patient and her brother who was also present; patient remained vague about this issue and says she has just learned to deal with it; she is agreeing to increasing gabapentin. Also agrees to clonazepam -will 1st add clonazepam 0.5 mg b.i.d.; she has been on in the past and her anxiety seems to be a major contributor to her experience of pain and her ability to walk freely on her own. -will consider increasing gabapentin as well 03/05 pt says little better but still has SI, though she says it remains less. Pain not alleviated by scheduled flexeril. Pt explained she has a long hx of emotional lability. Agrees Clonazepam lowers anxiety, though it makes her tired. At this time she feels it's a welcomed break from anxiety. Also agrees to increase Gabapentin again, since it seemed to be helping, even if it too makes her tired. -still w/ urinary retention; PA recs to increase bladder scan to q6h and cath for CC>350; will monitor and get Urology consult if persists 03/07- Continue plan Urology consult 03/08 mood is lousy...i've been miserable all my life.. pt says the pain is the same pt went to a couple groups but said she didn't get anything out of it. Talked about medications and pt says I think therapy is better than pills... despite lousy mood pt has given some thought about discharge...has showered, is now walking on her own and off 1:1, urinating on her own and not needing straight cath 03/09 Patient says I do not know when asked how she is doing which is somewhat of an improvement from yesterday. She remains out in the milieu, hanging around others though mostly keeping to herself. Walking fine, remains with no residual urine per bladder scan. Discussed aftercare and patient is amenable to day program -patient has improved somewhat but is still overall depressed; will give it another day or so. If she remains down will consider either increasing Cymbalta or retry and Wellbutrin Plan: CV Q 15 minute checks Continue gabapentin 200 mg t.i.d. for chronic pain (reviewed risks/side-effects) Continue Clonazepam 0.5 mg b.i.d. for anxiety; has been on in the past Swich to PRN Cyclobenzaprine 10 mg t.i.d.prn (with p.r.n.; patient has been on as high doses 20 mg) Continue Cymbalta 60 mg DC fluoxetine DC Wellbutrin famotidine 20 mg b.i.d.; patient says she has chronic GERD risperidone 3 mg q.h.s. prazosin 1 mg q.h.s. Cogentin 0.5 mg b.i.d. Will order H pylori antigen stool test (patient has refused to comply); patient says she has had intractable GERD for a long time; has never been tested for H pylori Patient educated on: diagnosis Informed Consent: understands and further education needed Reason for continued inpatient stay Substantial Risk for: rapid decompensation Time Spent With Patient Time: Total time managing care of this patient today ____ minutes.
[2025-03-09 19:52] VITALS: BP 112/71; PULSE 95; TEMP 36.6; O2SAT 98
[2025-03-09] MEDS: Prazosin HCL 1 MG CAPSULE PO (20:35)
[2025-03-09] MEDS: risperiDONE Oral Sol 1 MG/ML SOLUTION 3 MG PO (20:35)
[2025-03-09] MEDS: Sennosides 8.6 MG TABLET 17.2 MG PO (20:35)
[2025-03-10] MEDS: Omeprazole 40 MG CAPSULE.DR PO ×2 (05:59→16:57)
[2025-03-10] MEDS: DULoxetine HCl 60 MG CAPSULE.DR PO (09:32)
[2025-03-10] MEDS: Fluticasone Propionate Nasal 16 GM SPRAY 2 SPRAY NOSTRIL-B (09:32)
[2025-03-10] MEDS: Gabapentin 100 MG CAPSULE 200 MG PO ×3 (09:32→21:08)
[2025-03-10] MEDS: Benztropine Mesylate 0.5 MG TABLET PO ×2 (09:32→21:08)
[2025-03-10] MEDS: clonazePAM 0.5 MG TABLET PO ×2 (09:32→13:40)
[2025-03-10] MEDS: Atorvastatin Calcium 10 MG TABLET PO (09:32)
[2025-03-10] MEDS: polyethylene glycoL 3350 17 GM POWD.PACK PO (09:33)
[2025-03-10] MEDS: Loratadine 10 MG TABLET PO (09:33)
[2025-03-10] MEDS: Famotidine 20 MG TABLET PO ×2 (09:33→21:09)
--- NOTE | 2025-03-10 10:12 | HO.PSYCHPN ---
Subjective Subjective Date of Service: 03/10/25 Reason For Visit: Depression Interim History: met with patient; discussed with team pt difficult with which to engage. On inquiry about mood she says i don't know.... She says SI is there a little and that it comes and goes but is fleeting. No change in pain; remains constipated. Does not notice Wellbutrin which is being re-tried. Mental Status Exam Mental Status Exam Narrative: Pt is alert and oriented; behavior is more calm, in the milieu, on her own walking around; dressed in casual attire with adequate hygiene, having showered; glasses, appears older than chronological age; mood is described as I do not know and affect congruent, downcast; eye contact a little avoidant (baseline); Speech is mumbled (which is baseline) but she can slow down and articulate; normal volume; some psychomotor retardation present; thought process is goal directed, concrete; Thought content is on dealing with pain and depression; no delusional ideations expressed; a little SI/no HI; no AVH. Patients insight and judgment impaired but improved...close to baseline? Diagnostics Vital Signs (24Hr): Vital Signs - 24 hr 03/09/25 19:52 Temperature 97.8 F Pulse Rate 95 Blood Pressure 112/71 Pulse Oximetry 98 Oxygen Delivery Method Room Air BMI result Body Mass Index 25.4 Labs 03/06/25 12:37 03/06/25 12:37 Imaging Radiology Impressions: ITS Impressions Chest X-Ray 02/18/25 09:58 IMPRESSION: Mild interstitial edema and bilateral pleural effusions, small to moderate volume, similar to slightly worsened since prior exam. Electronically signed by: Hamlet Stephens MD 02/18/2025 10:42 AM EDT Medications Medications Current Medications Acetaminophen (Acetaminophen 325 Mg Tablet) 650 mg PO Q6H PRN PRN Reason: Headache/Pain, Scale 1-10 Last Admin: 03/04/25 12:50 Dose: 325 mg Al Hydroxide/Mg Hydroxide (Magnesium Hydrox/Alum Hydrox 30 Ml Oral.Susp) 30 ml PO Q6H PRN PRN Reason: Heartburn/Nausea Atorvastatin Calcium (Atorvastatin Calcium 10 Mg Tablet) 10 mg PO DAILY [facility] Last Admin: 03/10/25 09:32 Dose: 10 mg Benztropine Mesylate (Benztropine Mesylate 0.5 Mg Tablet) 0.5 mg PO BID [facility] Last Admin: 03/10/25 09:32 Dose: 0.5 mg Clonazepam (Clonazepam 0.5 Mg Tablet) 0.5 mg PO BID@0900,1400 [facility] Last Admin: 03/10/25 09:32 Dose: 0.5 mg Cyclobenzaprine HCl (Cyclobenzaprine Hcl 10 Mg Tablet) 10 mg PO TID PRN PRN Reason: Muscle Spasm/aches Docusate Sodium (Docusate Sodium 100 Mg Capsule) 100 mg PO DAILY PRN PRN Reason: constipation Last Admin: 03/01/25 09:11 Dose: 100 mg Duloxetine HCl (Duloxetine Hcl 60 Mg Capsule.) 60 mg PO DAILY [facility] Last Admin: 03/10/25 09:32 Dose: 60 mg Famotidine (Famotidine 20 Mg Tablet) 20 mg PO BID [facility] Last Admin: 03/10/25 09:33 Dose: 20 mg Fluticasone Propionate (Fluticasone Propionate Nasal 16 Gm [place]) 2 spray NOSTRIL-B DAILY [facility] Last Admin: 03/10/25 09:32 Dose: 2 spray Gabapentin (Gabapentin 100 Mg Capsule) 200 mg PO TID [facility] Last Admin: 03/10/25 09:32 Dose: 200 mg Hydrocortisone (Hydrocortisone 2.5 % Rectal Cr 30 Gm Tube) 1 appl MA Q6H PRN PRN Reason: Hemorrhoids Hydroxyzine HCl (Hydroxyzine Hcl 25 Mg Tablet) 25 mg PO Q6H PRN PRN Reason: mild anxiety Loratadine (Loratadine 10 Mg Tablet) 10 mg PO DAILY [facility] Last Admin: 03/10/25 09:33 Dose: 10 mg Magnesium Hydroxide (Milk Of Magnesia 30 Ml Oral.Susp) 30 ml PO DAILY PRN PRN Reason: Constipation Last Admin: 03/01/25 17:51 Dose: 30 ml Naproxen (Naproxen 500 Mg Tablet) 500 mg PO BID PRN PRN Reason: Pain (Scale Score 1-3) Last Admin: 03/01/25 09:11 Dose: 500 mg Nicotine Polacrilex (Nicotine Polacrilex 2 Mg Gum) 4 mg BUCCAL Q2H PRN PRN Reason: Nicotine Cravings Omeprazole (Omeprazole 40 Mg Capsule.) 40 mg PO BID@0630,1630 [facility] Last Admin: 03/10/25 05:59 Dose: 40 mg Ondansetron HCl (Ondansetron Odt 4 Mg Tab.Rapdis) 4 mg TRANSLINGU Q8H PRN PRN Reason: Nausea and Vomiting Last Admin: 03/06/25 12:03 Dose: 4 mg Polyethylene Glycol (Polyethylene Glycol 3350 17 Gm Powd.Pack) 17 gm PO DAILY PRN PRN Reason: Constipation Last Admin: 03/01/25 09:56 Dose: 17 gm Polyethylene Glycol (Polyethylene Glycol 3350 17 Gm Powd.Pack) 17 gm PO DAILY [facility] Last Admin: 03/10/25 09:33 Dose: 17 gm Prazosin HCl (Prazosin Hcl 1 Mg Capsule) 1 mg PO BEDTIME [facility]; Protocol Last Admin: 03/09/25 20:35 Dose: 1 mg Risperidone (Risperidone Oral Lindsay 1 Mg/Ml Solution) 3 mg PO BEDTIME [facility] Last Admin: 03/09/25 20:35 Dose: 3 mg Senna (Sennosides 8.6 Mg Tablet) 17.2 mg PO BEDTIME [facility] Last Admin: 03/09/25 20:35 Dose: 17.2 mg Allergies Allergies Allergy/AdvReac Type Severity Reaction Status Date / Time No Known Allergies Allergy Verified 02/18/25 07:24 [No Known Allergies*] Assessment & Plan Assessment & Plan (1) MDD (major depressive disorder), recurrent severe, without psychosis: Status: Acute Code(s): F33.2 - Major depressive disorder, recurrent severe without psychotic features (2) Anxiety: Status: Acute Code(s): F41.9 - Anxiety disorder, unspecified Plan 54 year-old female with PMHx of Parkinson's with dyskinesia, metabolic encephalopathy, constipation, ulcerative colitis, GERD, IBS, 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 Patient called 911 saying she was short of breath but here in the ED she talked about wanting to . Patient reports that about a month ago, she stopped going to her therapist due to lack of insurance; she says she does not take medications regularly, runs out of them and does not get refills and has been off of her medications for about 2 months. She says that she was doing overall good enough and that depression would come and go. They however she has been feeling more down, tired of always being in pain. Patient explained contributory factors being chronic pain which says seems to have gotten worse recently (patient names almost every part of her body as painful: headaches, joints, stomach, legs, feet...each toe). Patient reports up until a week ago, she was living on her own in her own apartment but this past week she moved into a senior living, saying she needed more support. Over these past few days she became more depressed. Once in the emergency room she says she started to think about ending it... Taking a bunch of pills... Patient explains concretely if I were home I would have done it because I had access to the pills... Here I do not have access to the pills. She reports Hx of SI but has never actually tried to; says usually the feeling passes; reports extreme anxiety since childhood; seems to endorse depressive episodes. -denies AVH or paranoid ideations; she does not know why she is prescribed risperidone -denies drug or alcohol use Formulation/clinical reasoning: Endorses depression and anxiety; has been off her medications which is likely contributory as well as chronic pain though not sure the cause; she says nothing has ever help with her pain before however agrees to start and try gabapentin. Patient with blunted affect and concrete; will seek to rule out ASD. Need collateral Hospital course: 02/21 still feeling down; still thinking of suicide but hopeful not to do it agrees to increase prozac to 40mg; also agrees to increased Gabapentin 300mg TID has not had a BM yet; says chronically has trouble pooping and has been constipated for years -agrees to Mirrilax 02/22 Patient reports that she is still depressed and still feeling suicidal though she reports SI is waning. No bowel movement. No medication side effects and agrees to titration 02/23 says still depressed and still with some SI remaining; agrees to increasing buproprion -still constipated 02/24 says still depressed; still with some SI; talked about anxiety as well. pt says no change in chronic body pain with gabapentin; agrees to titrate 02/25 no change in presentation; still depressed, still w/ some SI. Tried to discuss etiology of depression which she seems to say was sudden and did not have anything to do w/ moving into senior living 02/[address] IMPRESSION:. No acute intracranial findings. 5/6 Patient had a tough weekend. There was some concern that she slurred her speech was confused or dizzy. Head CT negative. Today patient says she wants to that she is so sad.. And feels so unhappy. Patient is tearful and endorses SI. She can be hard to understand however when underwriter solicitation director mentions this, she apologizes, slows down her speech and is understandable. She says she has pain everywhere from her head to her toes and everywhere in-between. She thinks maybe it was a little better last week and underwriter solicitation director mentioned that her gabapentin had been significantly lowered over the weekend possibly out of concern for patient's dizziness. Patient says she has no formal diagnosis for pain. Measurement Specialist discussed medication regimen with patient who agreed to discontinue Prozac, discontinue Wellbutrin, which have not seemed to help and instead start on Cymbalta which can help with both anxiety, depression as well as pain. Patient shuffling around and now reporting falls; underwriter solicitation director inquired and she agreed she was not falling last week but says it is only change now due to the increase in pain. At this point, changes seem more due to behaviors rather than organic. Given that patient has a history of Parkinson's and for some reason a pain syndrome that seems undiagnosed, Neuro consult placed as well -will consider increasing gabapentin again -add cyclobenzaprine which she has been on in the past -reportedly patient has history of Parkinson's 03/03 Regarding SI, she says it is still remains; however, mood little better today; tolerating cymbalta 60mg and discussed med changes again. She said that Said due to her anxiety she has been a little snippy with people which she says she has talked to her therapist about Patient mentioned visual hallucinations; she explains to underwriter solicitation director that says seeing like a painting on the wall, like people walking around... However with further inquiry, this only occurs when she is waking up from sleep and not otherwise. car worker helper discussed with brother who says that this sounds like behavioral episodes patient has had the past Regarding body pain, she says it is actually a little better. She agrees to retry Flexeril to see if that is helpful. Patient complained of dysuria to nurse and asked for UA but was specific and wanting to be straight cathed. Patient had a significant volume of urine removed and is not sure if this is due to urinary retention or if patient is intentionally avoiding urinating; patient told underwriter solicitation director she has intermittent history of urinary retention.. She also has been complaining about constipation however has been refusing laxatives/stool softeners. Measurement Specialist discussed this and patient says she has long history of constipation and is worry about taking medications that will cause copious diarrhea, which happened once before when she laxatives. She agreed however that constipation needs to be relieved and said she would take medications. UA pending: unremarkable (bladder scan q shift w/ strait cath for CC>500) 03/04 Patient reports to underwriter solicitation director that her mood is a little better and today no SI. Patient also says that her pain is a little bit better today. She is not sure Flexeril helped but agrees to have it scheduled. Patient up walking around the unit today without assistance. Patient remains with urinary retention via bladder scans. Will get consult. Later in the day underwriter solicitation director met with patient again who was feeling more distraught and now saying she is not better at all. Patient says she feels marginalized because she has a disability. Discussed chronic pain with patient and her brother who was also present; patient remained vague about this issue and says she has just learned to deal with it; she is agreeing to increasing gabapentin. Also agrees to clonazepam -will 1st add clonazepam 0.5 mg b.i.d.; she has been on in the past and her anxiety seems to be a major contributor to her experience of pain and her ability to walk freely on her own. -will consider increasing gabapentin as well 03/05 pt says little better but still has SI, though she says it remains less. Pain not alleviated by scheduled flexeril. Pt explained she has a long hx of emotional lability. Agrees Clonazepam lowers anxiety, though it makes her tired. At this time she feels it's a welcomed break from anxiety. Also agrees to increase Gabapentin again, since it seemed to be helping, even if it too makes her tired. -still w/ urinary retention; PA recs to increase bladder scan to q6h and cath for CC>350; will monitor and get Urology consult if persists 03/07- Continue plan Urology consult 03/08 mood is lousy...i've been miserable all my life.. pt says the pain is the same pt went to a couple groups but said she didn't get anything out of it. Talked about medications and pt says I think therapy is better than pills... despite lousy mood pt has given some thought about discharge...has showered, is now walking on her own and off 1:1, urinating on her own and not needing straight cath 03/09 Patient says I do not know when asked how she is doing which is somewhat of an improvement from yesterday. She remains out in the milieu, hanging around others though mostly keeping to herself. Walking fine, remains with no residual urine per bladder scan. Discussed aftercare and patient is amenable to day program -patient has improved somewhat but is still overall depressed; will give it another day or so. If she remains down will consider either increasing Cymbalta or retry and Wellbutrin 03/10 pt difficult with which to engage. On inquiry about mood she says i don't know.... She says SI is there a little and that it comes and goes but is fleeting. No change in pain; remains constipated. Does not notice Wellbutrin which is being re-tried. -that said, she remains out of her room, in the milue and though keeping to herself, is not isolating; walking around on her own well -will try once more to increase Gabapentin to address chronic pain; if not effective or not tolerated, may try lyrica Plan: CV Q 15 minute checks Retry Wellbutrin XL 150mg Continue gabapentin 200 mg t.i.d. for chronic pain (reviewed risks/side-effects) Continue Clonazepam 0.5 mg b.i.d. for anxiety; has been on in the past Swich to PRN Cyclobenzaprine 10 mg t.i.d.prn (with p.r.n.; patient has been on as high doses 20 mg) Continue Cymbalta 60 mg DC fluoxetine famotidine 20 mg b.i.d.; patient says she has chronic GERD risperidone 3 mg q.h.s. prazosin 1 mg q.h.s. Cogentin 0.5 mg b.i.d. Will order H pylori antigen stool test (patient has refused to comply); patient says she has had intractable GERD for a long time; has never been tested for H pylori Patient educated on: diagnosis and medication risk/benefits Informed Consent: understands and further education needed Reason for continued inpatient stay Substantial Risk for: stable for discharge, rapid decompensation and med/psych decompensation Time Spent With Patient Time: Total time managing care of this patient today ____ minutes.
[2025-03-10 10:51] VITALS: BP 101/51; PULSE 100; TEMP 36.3; O2SAT 96
[2025-03-10] MEDS: buPROPion HCl XL 150 MG TAB.ER.24H PO (13:39)
[2025-03-10 20:00] VITALS: BP 117/71; PULSE 96; RESP 17; TEMP 36.8; O2SAT 98
[2025-03-10 21:08] VITALS: BP 117/71
[2025-03-10] MEDS: Prazosin HCL 1 MG CAPSULE PO (21:08)
[2025-03-10] MEDS: risperiDONE Oral Sol 1 MG/ML SOLUTION 3 MG PO (21:09)
[2025-03-10] MEDS: Cyclobenzaprine HCl 10 MG TABLET PO (21:12)
[2025-03-10] MEDS: hydrOXYzine HCL 25 MG TABLET PO (21:13)
[2025-03-10] MEDS: Sennosides 8.6 MG TABLET 17.2 MG PO (21:13)
[2025-03-11] MEDS: Omeprazole 40 MG CAPSULE.DR PO ×2 (05:59→15:55)
[2025-03-11 07:58] VITALS: BP 101/56; PULSE 90; RESP 16; TEMP 36.9; O2SAT 98
[2025-03-11] MEDS: Famotidine 20 MG TABLET PO ×2 (08:37→20:42)
[2025-03-11] MEDS: Gabapentin 100 MG CAPSULE 200 MG PO ×3 (08:37→20:43)
[2025-03-11] MEDS: Fluticasone Propionate Nasal 16 GM SPRAY 2 SPRAY NOSTRIL-B (08:37)
[2025-03-11] MEDS: Loratadine 10 MG TABLET PO (08:37)
[2025-03-11] MEDS: clonazePAM 0.5 MG TABLET PO ×2 (08:37→13:21)
[2025-03-11] MEDS: Benztropine Mesylate 0.5 MG TABLET PO ×2 (08:37→20:43)
[2025-03-11] MEDS: DULoxetine HCl 60 MG CAPSULE.DR PO (08:37)
[2025-03-11] MEDS: buPROPion HCl XL 150 MG TAB.ER.24H PO (08:38)
[2025-03-11] MEDS: Atorvastatin Calcium 10 MG TABLET PO (08:38)
--- NOTE | 2025-03-11 08:49 | P.PNPSI_ITS ---
Subjective Subjective Date of Service: 03/11/25 Reason For Visit: Depression Interim History: met with patient; discussed with team Patient again says I do not know to how she is feeling. Remains out of her room, attending groups but mostly keeping to herself. Agrees to titration of medications. Denies AVH Mental Status Exam Mental Status Exam Narrative: Pt is alert and oriented; behavior is more calm, in the milieu, on her own walking around; dressed in casual attire with adequate hygiene, having showered; glasses, appears older than chronological age; mood is described as I do not know and affect congruent, downcast; eye contact a little avoidant (baseline); Speech is mumbled (which is baseline) but she can slow down and articulate; normal volume; some psychomotor retardation present; thought process is goal directed, concrete; Thought content is on dealing with pain and depression; no delusional ideations expressed; a little SI/no HI; no AVH. Patients insight and judgment impaired but improved...close to baseline? Diagnostics Vital Signs (24Hr): Vital Signs - 24 hr 03/10/25 10:51 03/10/25 20:00 03/10/25 21:08 Temperature 97.3 F 98.3 F Pulse Rate 100 96 Respiratory Rate 17 Blood Pressure 101/51 L 117/71 117/71 Pulse Oximetry 96 98 Oxygen Delivery Method Room Air Room Air 03/11/25 07:58 Temperature 98.4 F Pulse Rate 90 Respiratory Rate 16 Blood Pressure 101/56 L Pulse Oximetry 98 Oxygen Delivery Method Room Air BMI result Body Mass Index 25.4 Labs 03/06/25 12:37 03/06/25 12:37 Imaging Radiology Impressions: ITS Impressions Chest X-Ray 02/18/25 09:58 IMPRESSION: Mild interstitial edema and bilateral pleural effusions, small to moderate volume, similar to slightly worsened since prior exam. Electronically signed by: Hamlet Stephens MD 02/18/2025 10:42 AM EDT Medications Medications Current Medications Acetaminophen (Acetaminophen 325 Mg Tablet) 650 mg PO Q6H PRN PRN Reason: Headache/Pain, Scale 1-10 Last Admin: 03/04/25 12:50 Dose: 325 mg Al Hydroxide/Mg Hydroxide (Magnesium Hydrox/Alum Hydrox 30 Ml Oral.Susp) 30 ml PO Q6H PRN PRN Reason: Heartburn/Nausea Atorvastatin Calcium (Atorvastatin Calcium 10 Mg Tablet) 10 mg PO DAILY [facility] Last Admin: 03/11/25 08:38 Dose: 10 mg Benztropine Mesylate (Benztropine Mesylate 0.5 Mg Tablet) 0.5 mg PO BID [facility] Last Admin: 03/11/25 08:37 Dose: 0.5 mg Bupropion HCl (Bupropion Hcl Xl 150 Mg Tab.Er.24h) 150 mg PO DAILY [facility] Last Admin: 03/11/25 08:38 Dose: 150 mg Clonazepam (Clonazepam 0.5 Mg Tablet) 0.5 mg PO BID@0900,1400 [facility] Last Admin: 03/11/25 08:37 Dose: 0.5 mg Cyclobenzaprine HCl (Cyclobenzaprine Hcl 10 Mg Tablet) 10 mg PO TID PRN PRN Reason: Muscle Spasm/aches Last Admin: 03/10/25 21:12 Dose: 10 mg Docusate Sodium (Docusate Sodium 100 Mg Capsule) 100 mg PO DAILY PRN PRN Reason: constipation Last Admin: 03/01/25 09:11 Dose: 100 mg Duloxetine HCl (Duloxetine Hcl 60 Mg Capsule.Dr) 60 mg PO DAILY [facility] Last Admin: 03/11/25 08:37 Dose: 60 mg Famotidine (Famotidine 20 Mg Tablet) 20 mg PO BID [facility] Last Admin: 03/11/25 08:37 Dose: 20 mg Fluticasone Propionate (Fluticasone Propionate Nasal 16 Gm [place]) 2 spray NOSTRIL-B DAILY [facility] Last Admin: 03/11/25 08:37 Dose: 2 spray Gabapentin (Gabapentin 100 Mg Capsule) 200 mg PO TID [facility] Last Admin: 03/11/25 08:37 Dose: 200 mg Hydrocortisone (Hydrocortisone 2.5 % Rectal Cr 30 Gm Tube) 1 appl [place] Q6H PRN PRN Reason: Hemorrhoids Hydroxyzine HCl (Hydroxyzine Hcl 25 Mg Tablet) 25 mg PO Q6H PRN PRN Reason: mild anxiety Last Admin: 03/10/25 21:13 Dose: 25 mg Loratadine (Loratadine 10 Mg Tablet) 10 mg PO DAILY [facility] Last Admin: 03/11/25 08:37 Dose: 10 mg Magnesium Hydroxide (Milk Of Magnesia 30 Ml Oral.Susp) 30 ml PO DAILY PRN PRN Reason: Constipation Last Admin: 03/01/25 17:51 Dose: 30 ml Naproxen (Naproxen 500 Mg Tablet) 500 mg PO BID PRN PRN Reason: Pain (Scale Score 1-3) Last Admin: 03/01/25 09:11 Dose: 500 mg Nicotine Polacrilex (Nicotine Polacrilex 2 Mg Gum) 4 mg BUCCAL Q2H PRN PRN Reason: Nicotine Cravings Omeprazole (Omeprazole 40 Mg Capsule.Dr) 40 mg PO BID@0630,1630 [facility] Last Admin: 03/11/25 05:59 Dose: 40 mg Ondansetron HCl (Ondansetron Odt 4 Mg Tab.Rapdis) 4 mg TRANSLINGU Q8H PRN PRN Reason: Nausea and Vomiting Last Admin: 03/06/25 12:03 Dose: 4 mg Polyethylene Glycol (Polyethylene Glycol 3350 17 Gm Powd.Pack) 17 gm PO DAILY PRN PRN Reason: Constipation Last Admin: 03/01/25 09:56 Dose: 17 gm Polyethylene Glycol (Polyethylene Glycol 3350 17 Gm Powd.Pack) 17 gm PO DAILY [facility] Last Admin: 03/11/25 08:38 Dose: Not Given Prazosin HCl (Prazosin Hcl 1 Mg Capsule) 1 mg PO BEDTIME [facility]; Protocol Last Admin: 03/10/25 21:08 Dose: 1 mg Risperidone (Risperidone Oral Lindsay 1 Mg/Ml Solution) 3 mg PO BEDTIME [facility] Last Admin: 03/10/25 21:09 Dose: 3 mg Senna (Sennosides 8.6 Mg Tablet) 17.2 mg PO BEDTIME [facility] Last Admin: 03/10/25 21:13 Dose: 17.2 mg Allergies Allergies Allergy/AdvReac Type Severity Reaction Status Date / Time No Known Allergies Allergy Verified 02/18/25 07:24 [No Known Allergies*] Assessment & Plan Assessment & Plan (1) MDD (major depressive disorder), recurrent severe, without psychosis: Status: Acute Code(s): F33.2 - Major depressive disorder, recurrent severe without psychotic features (2) Anxiety: Status: Acute Code(s): F41.9 - Anxiety disorder, unspecified Plan 54 year-old female with PMHx of Parkinson's with dyskinesia, metabolic encephalopathy, constipation, ulcerative colitis, GERD, IBS, 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 Patient called 911 saying she was short of breath but here in the ED she talked about wanting to . Patient reports that about a month ago, she stopped going to her therapist due to lack of insurance; she says she does not take medications regularly, runs out of them and does not get refills and has been off of her medications for about 2 months. She says that she was doing overall good enough and that depression would come and go. They however she has been feeling more down, tired of always being in pain. Patient explained contributory factors being chronic pain which says seems to have gotten worse recently (patient names almost every part of her body as painful: headaches, joints, stomach, legs, feet...each toe). Patient reports up until a week ago, she was living on her own in her own apartment but this past week she moved into a fpc, saying she needed more support. Over these past few days she became more depressed. Once in the emergency room she says she started to think about ending it... Taking a bunch of pills... Patient explains concretely if I were home I would have done it because I had access to the pills... Here I do not have access to the pills. She reports Hx of SI but has never actually tried to; says usually the feeling passes; reports extreme anxiety since childhood; seems to endorse depressive episodes. -denies AVH or paranoid ideations; she does not know why she is prescribed risperidone -denies drug or alcohol use Formulation/clinical reasoning: Endorses depression and anxiety; has been off her medications which is likely contributory as well as chronic pain though not sure the cause; she says nothing has ever help with her pain before however agrees to start and try gabapentin. Patient with blunted affect and concrete; will seek to rule out ASD. Need collateral Hospital course: 02/21 still feeling down; still thinking of suicide but hopeful not to do it agrees to increase prozac to 40mg; also agrees to increased Gabapentin 300mg TID has not had a BM yet; says chronically has trouble pooping and has been constipated for years -agrees to Mirrilax 02/22 Patient reports that she is still depressed and still feeling suicidal though she reports SI is waning. No bowel movement. No medication side effects and agrees to titration 02/23 says still depressed and still with some SI remaining; agrees to increasing buproprion -still constipated 02/24 says still depressed; still with some SI; talked about anxiety as well. pt says no change in chronic body pain with gabapentin; agrees to titrate 02/25 no change in presentation; still depressed, still w/ some SI. Tried to discuss etiology of depression which she seems to say was sudden and did not have anything to do w/ moving into fpc 02/[address] IMPRESSION:. No acute intracranial findings. 03/02 Patient had a tough weekend. There was some concern that she slurred her speech was confused or dizzy. Head CT negative. Today patient says she wants to that she is so sad.. And feels so unhappy. Patient is tearful and endorses SI. She can be hard to understand however when food writer mentions this, she apologizes, slows down her speech and is understandable. She says she has pain everywhere from her head to her toes and everywhere in-between. She thinks maybe it was a little better last week and food writer mentioned that her gabapentin had been significantly lowered over the weekend possibly out of concern for patient's dizziness. Patient says she has no formal diagnosis for pain. Leather Softener discussed medication regimen with patient who agreed to discontinue Prozac, discontinue Wellbutrin, which have not seemed to help and instead start on Cymbalta which can help with both anxiety, depression as well as pain. Patient shuffling around and now reporting falls; food writer inquired and she agreed she was not falling last week but says it is only change now due to the increase in pain. At this point, changes seem more due to behaviors rather than organic. Given that patient has a history of Parkinson's and for some reason a pain syndrome that seems undiagnosed, Neuro consult placed as well -will consider increasing gabapentin again -add cyclobenzaprine which she has been on in the past -reportedly patient has history of Parkinson's 03/03 Regarding SI, she says it is still remains; however, mood little better today; tolerating cymbalta 60mg and discussed med changes again. She said that Said due to her anxiety she has been a little snippy with people which she says she has talked to her therapist about Patient mentioned visual hallucinations; she explains to food writer that says seeing like a painting on the wall, like people walking around... However with further inquiry, this only occurs when she is waking up from sleep and not otherwise. structural worker discussed with brother who says that this sounds like behavioral episodes patient has had the past Regarding body pain, she says it is actually a little better. She agrees to retry Flexeril to see if that is helpful. Patient complained of dysuria to nurse and asked for UA but was specific and wanting to be straight cathed. Patient had a significant volume of urine removed and is not sure if this is due to urinary retention or if patient is intentionally avoiding urinating; patient told food writer she has intermittent history of urinary retention.. She also has been complaining about constipation however has been refusing laxatives/stool softeners. Leather Softener discussed this and patient says she has long history of constipation and is worry about taking medications that will cause copious diarrhea, which happened once before when she laxatives. She agreed however that constipation needs to be relieved and said she would take medications. UA pending: unremarkable (bladder scan q shift w/ strait cath for CC>500) 03/04 Patient reports to food writer that her mood is a little better and today no SI. Patient also says that her pain is a little bit better today. She is not sure Flexeril helped but agrees to have it scheduled. Patient up walking around the unit today without assistance. Patient remains with urinary retention via bladder scans. Will get consult. Later in the day food writer met with patient again who was feeling more distraught and now saying she is not better at all. Patient says she feels marginalized because she has a disability. Discussed chronic pain with patient and her brother who was also present; patient remained vague about this issue and says she has just learned to deal with it; she is agreeing to increasing gabapentin. Also agrees to clonazepam -will 1st add clonazepam 0.5 mg b.i.d.; she has been on in the past and her anxiety seems to be a major contributor to her experience of pain and her ability to walk freely on her own. -will consider increasing gabapentin as well 03/05 pt says little better but still has SI, though she says it remains less. Pain not alleviated by scheduled flexeril. Pt explained she has a long hx of emotional lability. Agrees Clonazepam lowers anxiety, though it makes her tired. At this time she feels it's a welcomed break from anxiety. Also agrees to increase Gabapentin again, since it seemed to be helping, even if it too makes her tired. -still w/ urinary retention; PA recs to increase bladder scan to q6h and cath for CC>350; will monitor and get Urology consult if persists 03/07- Continue plan Urology consult 03/08 mood is lousy...i've been miserable all my life.. pt says the pain is the same pt went to a couple groups but said she didn't get anything out of it. Talked about medications and pt says I think therapy is better than pills... despite lousy mood pt has given some thought about discharge...has showered, is now walking on her own and off 1:1, urinating on her own and not needing straight cath 03/09 Patient says I do not know when asked how she is doing which is somewhat of an improvement from yesterday. She remains out in the milieu, hanging around others though mostly keeping to herself. Walking fine, remains with no residual urine per bladder scan. Discussed aftercare and patient is amenable to day program -patient has improved somewhat but is still overall depressed; will give it another day or so. If she remains down will consider either increasing Cymbalta or retry and Wellbutrin 03/10 pt difficult with which to engage. On inquiry about mood she says i don't know.... She says SI is there a little and that it comes and goes but is fleeting. No change in pain; remains constipated. Does not notice Wellbutrin which is being re-tried. -that said, she remains out of her room, in the milue and though keeping to herself, is not isolating; walking around on her own well -will try once more to increase Gabapentin to address chronic pain; if not effective or not tolerated, may try lyrica 03/11 Patient again says I do not know to how she is feeling. Remains out of her room, attending groups but mostly keeping to herself. Agrees to titration of medications. Denies AVH Plan: CV Q 15 minute checks Retry Wellbutrin XL 150mg Continue gabapentin 200 mg t.i.d. for chronic pain (reviewed risks/side-effects) Continue Clonazepam 0.5 mg b.i.d. for anxiety; has been on in the past Swich to PRN Cyclobenzaprine 10 mg t.i.d.prn (with p.r.n.; patient has been on as high doses 20 mg) Continue Cymbalta 60 mg DC fluoxetine famotidine 20 mg b.i.d.; patient says she has chronic GERD risperidone 3 mg q.h.s. prazosin 1 mg q.h.s. Cogentin 0.5 mg b.i.d. Will order H pylori antigen stool test (patient has refused to comply); patient says she has had intractable GERD for a long time; has never been tested for H pylori Patient educated on: diagnosis, medication risk/benefits and therapeutic strategies Informed Consent: understands and further education needed Reason for continued inpatient stay Substantial Risk for: stable for discharge, rapid decompensation and med/psych decompensation Time Spent With Patient Time: Total time managing care of this patient today ____ minutes.
[2025-03-11 10:24] VITALS: BMI 25.7
[2025-03-11 20:00] VITALS: BP 113/72; PULSE 106; RESP 16; TEMP 36.6; O2SAT 98
[2025-03-11 20:42] VITALS: BP 113/55
[2025-03-11] MEDS: Prazosin HCL 1 MG CAPSULE PO (20:42)
[2025-03-11] MEDS: risperiDONE Oral Sol 1 MG/ML SOLUTION 3 MG PO (20:43)
[2025-03-11] MEDS: Sennosides 8.6 MG TABLET 17.2 MG PO (20:43)
[2025-03-12] MEDS: Omeprazole 40 MG CAPSULE.DR PO ×2 (07:11→16:38)
[2025-03-12 08:05] VITALS: BP 98/54; PULSE 83; TEMP 36.7; O2SAT 98
[2025-03-12] MEDS: DULoxetine HCl 60 MG CAPSULE.DR PO (08:38)
[2025-03-12] MEDS: Loratadine 10 MG TABLET PO (08:38)
[2025-03-12] MEDS: Fluticasone Propionate Nasal 16 GM SPRAY 2 SPRAY NOSTRIL-B (08:38)
[2025-03-12] MEDS: buPROPion HCl XL 300 MG TAB.ER.24H PO (08:38)
[2025-03-12] MEDS: Famotidine 20 MG TABLET PO ×2 (08:38→21:08)
[2025-03-12] MEDS: Gabapentin 100 MG CAPSULE 200 MG PO ×3 (08:38→21:08)
[2025-03-12] MEDS: clonazePAM 0.5 MG TABLET PO ×2 (08:38→14:53)
[2025-03-12] MEDS: Benztropine Mesylate 0.5 MG TABLET PO ×2 (08:38→21:08)
[2025-03-12] MEDS: polyethylene glycoL 3350 17 GM POWD.PACK PO (08:39)
[2025-03-12] MEDS: Atorvastatin Calcium 10 MG TABLET PO (08:39)
[2025-03-12 20:00] VITALS: BP 115/68; PULSE 117; TEMP 37.1; O2SAT 100
[2025-03-12] MEDS: risperiDONE Oral Sol 1 MG/ML SOLUTION 3 MG PO (21:07)
[2025-03-12] MEDS: Sennosides 8.6 MG TABLET 17.2 MG PO (21:08)
[2025-03-12] MEDS: hydrOXYzine HCL 25 MG TABLET PO (21:08)
[2025-03-12] MEDS: Prazosin HCL 1 MG CAPSULE PO (21:08)
[2025-03-13] MEDS: Omeprazole 40 MG CAPSULE.DR PO ×2 (06:27→17:11)
[2025-03-13 08:00] VITALS: BP 102/51; PULSE 79; TEMP 36.4; O2SAT 97
--- NOTE | 2025-03-13 08:45 | P.PNPSI_ITS ---
Subjective Subjective Date of Service: 03/12/25 Reason For Visit: Depression Interim History: Late entry note for patient seen on 03/12; discussed with team Patient tired and does not want to talk; agrees to have clonazepam afternoon dose moved or lowered since it seems to be causing sedation. Mental Status Exam Mental Status Exam Narrative: Pt is alert and oriented; behavior is more calm, in the milieu, on her own walking around; dressed in casual attire with adequate hygiene, having showered; glasses, appears older than chronological age; mood is described as depressed and affect congruent, downcast; eye contact a little avoidant (baseline); Speech is mumbled (which is baseline) but she can slow down and articulate; normal volume; some psychomotor retardation present; thought process is goal directed, concrete; Thought content is on dealing with pain and depression; no delusional ideations expressed; a little SI/no HI; no AVH. Patients insight and judgment impaired but improved...close to baseline? Diagnostics Vital Signs (24Hr): Vital Signs - 24 hr 03/12/25 20:00 Temperature 98.8 F Pulse Rate 117 H Blood Pressure 115/68 Pulse Oximetry 100 BMI result Body Mass Index 25.7 Labs 03/06/25 12:37 03/06/25 12:37 Imaging Radiology Impressions: ITS Impressions Chest X-Ray 02/18/25 09:58 IMPRESSION: Mild interstitial edema and bilateral pleural effusions, small to moderate volume, similar to slightly worsened since prior exam. Electronically signed by: Hamlet Stephens MD 02/18/2025 10:42 AM EDT Medications Medications Current Medications Acetaminophen (Acetaminophen 325 Mg Tablet) 650 mg PO Q6H PRN PRN Reason: Headache/Pain, Scale 1-10 Last Admin: 03/04/25 12:50 Dose: 325 mg Al Hydroxide/Mg Hydroxide (Magnesium Hydrox/Alum Hydrox 30 Ml Oral.Susp) 30 ml PO Q6H PRN PRN Reason: Heartburn/Nausea Atorvastatin Calcium (Atorvastatin Calcium 10 Mg Tablet) 10 mg PO DAILY [facility] Last Admin: 03/12/25 08:39 Dose: 10 mg Benztropine Mesylate (Benztropine Mesylate 0.5 Mg Tablet) 0.5 mg PO BID [facility] Last Admin: 03/12/25 21:08 Dose: 0.5 mg Bupropion HCl (Bupropion Hcl Xl 300 Mg Tab.Er.24h) 300 mg PO DAILY [facility] Last Admin: 03/12/25 08:38 Dose: 300 mg Clonazepam (Clonazepam 0.5 Mg Tablet) 0.5 mg PO BID@0900,1400 [facility] Last Admin: 03/12/25 14:53 Dose: 0.5 mg Cyclobenzaprine HCl (Cyclobenzaprine Hcl 10 Mg Tablet) 10 mg PO TID PRN PRN Reason: Muscle Spasm/aches Last Admin: 03/10/25 21:12 Dose: 10 mg Docusate Sodium (Docusate Sodium 100 Mg Capsule) 100 mg PO DAILY PRN PRN Reason: constipation Last Admin: 03/01/25 09:11 Dose: 100 mg Duloxetine HCl (Duloxetine Hcl 60 Mg Capsule.Dr) 60 mg PO DAILY [facility] Last Admin: 03/12/25 08:38 Dose: 60 mg Famotidine (Famotidine 20 Mg Tablet) 20 mg PO BID [facility] Last Admin: 03/12/25 21:08 Dose: 20 mg Fluticasone Propionate (Fluticasone Propionate Nasal 16 Gm Mcintosh) 2 spray NOSTRIL-B DAILY [facility] Last Admin: 03/12/25 08:38 Dose: 2 spray Gabapentin (Gabapentin 100 Mg Capsule) 200 mg PO TID [facility] Last Admin: 03/12/25 21:08 Dose: 200 mg Hydrocortisone (Hydrocortisone 2.5 % Rectal Cr 30 Gm Tube) 1 appl AR Q6H PRN PRN Reason: Hemorrhoids Hydroxyzine HCl (Hydroxyzine Hcl 25 Mg Tablet) 25 mg PO Q6H PRN PRN Reason: mild anxiety Last Admin: 03/12/25 21:08 Dose: 25 mg Loratadine (Loratadine 10 Mg Tablet) 10 mg PO DAILY [facility] Last Admin: 03/12/25 08:38 Dose: 10 mg Magnesium Hydroxide (Milk Of Magnesia 30 Ml Oral.Susp) 30 ml PO DAILY PRN PRN Reason: Constipation Last Admin: 03/01/25 17:51 Dose: 30 ml Naproxen (Naproxen 500 Mg Tablet) 500 mg PO BID PRN PRN Reason: Pain (Scale Score 1-3) Last Admin: 03/01/25 09:11 Dose: 500 mg Nicotine Polacrilex (Nicotine Polacrilex 2 Mg Gum) 4 mg BUCCAL Q2H PRN PRN Reason: Nicotine Cravings Omeprazole (Omeprazole 40 Mg Capsule.) 40 mg PO BID@0630,1630 [facility] Last Admin: 03/13/25 06:27 Dose: 40 mg Ondansetron HCl (Ondansetron Odt 4 Mg Tab.Rapdis) 4 mg TRANSLINGU Q8H PRN PRN Reason: Nausea and Vomiting Last Admin: 03/06/25 12:03 Dose: 4 mg Polyethylene Glycol (Polyethylene Glycol 3350 17 Gm Powd.Pack) 17 gm PO DAILY PRN PRN Reason: Constipation Last Admin: 03/01/25 09:56 Dose: 17 gm Polyethylene Glycol (Polyethylene Glycol 3350 17 Gm Powd.Pack) 17 gm PO DAILY [facility] Last Admin: 03/12/25 08:39 Dose: 17 gm Prazosin HCl (Prazosin Hcl 1 Mg Capsule) 1 mg PO BEDTIME [facility]; Protocol Last Admin: 03/12/25 21:08 Dose: 1 mg Risperidone (Risperidone Oral Lindsay 1 Mg/Ml Solution) 3 mg PO BEDTIME [facility] Last Admin: 03/12/25 21:07 Dose: 3 mg Senna (Sennosides 8.6 Mg Tablet) 17.2 mg PO BEDTIME [facility] Last Admin: 03/12/25 21:08 Dose: 17.2 mg Allergies Allergies Allergy/AdvReac Type Severity Reaction Status Date / Time No Known Allergies Allergy Verified 02/18/25 07:24 [No Known Allergies*] Assessment & Plan Assessment & Plan (1) MDD (major depressive disorder), recurrent severe, without psychosis: Status: Acute Code(s): F33.2 - Major depressive disorder, recurrent severe without psychotic features (2) Anxiety: Status: Acute Code(s): F41.9 - Anxiety disorder, unspecified Plan 54 year-old female with PMHx of Parkinson's with dyskinesia, metabolic encephalopathy, constipation, ulcerative colitis, GERD, IBS, 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 Patient called 911 saying she was short of breath but here in the ED she talked about wanting to . Patient reports that about a month ago, she stopped going to her therapist due to lack of insurance; she says she does not take medications regularly, runs out of them and does not get refills and has been off of her medications for about 2 months. She says that she was doing overall good enough and that depression would come and go. They however she has been feeling more down, tired of always being in pain. Patient explained contributory factors being chronic pain which says seems to have gotten worse recently (patient names almost every part of her body as painful: headaches, joints, stomach, legs, feet...each toe). Patient reports up until a week ago, she was living on her own in her own apartment but this past week she moved into a fpc, saying she needed more support. Over these past few days she became more depressed. Once in the emergency room she says she started to think about ending it... Taking a bunch of pills... Patient explains concretely if I were home I would have done it because I had access to the pills... Here I do not have access to the pills. She reports Hx of SI but has never actually tried to; says usually the feeling passes; reports extreme anxiety since childhood; seems to endorse depressive episodes. -denies AVH or paranoid ideations; she does not know why she is prescribed risperidone -denies drug or alcohol use Formulation/clinical reasoning: Endorses depression and anxiety; has been off her medications which is likely contributory as well as chronic pain though not sure the cause; she says nothing has ever help with her pain before however agrees to start and try gabapentin. Patient with blunted affect and concrete; will seek to rule out ASD. Need collateral Hospital course: 02/21 still feeling down; still thinking of suicide but hopeful not to do it agrees to increase prozac to 40mg; also agrees to increased Gabapentin 300mg TID has not had a BM yet; says chronically has trouble pooping and has been constipated for years -agrees to Mirrilax 02/22 Patient reports that she is still depressed and still feeling suicidal though she reports SI is waning. No bowel movement. No medication side effects and agrees to titration 02/23 says still depressed and still with some SI remaining; agrees to increasing buproprion -still constipated 02/24 says still depressed; still with some SI; talked about anxiety as well. pt says no change in chronic body pain with gabapentin; agrees to titrate 02/25 no change in presentation; still depressed, still w/ some SI. Tried to discuss etiology of depression which she seems to say was sudden and did not have anything to do w/ moving into fpc 02/[address] IMPRESSION:. No acute intracranial findings. 03/02 Patient had a tough weekend. There was some concern that she slurred her speech was confused or dizzy. Head CT negative. Today patient says she wants to that she is so sad.. And feels so unhappy. Patient is tearful and endorses SI. She can be hard to understand however when video game script writer mentions this, she apologizes, slows down her speech and is understandable. She says she has pain everywhere from her head to her toes and everywhere in-between. She thinks maybe it was a little better last week and video game script writer mentioned that her gabapentin had been significantly lowered over the weekend possibly out of concern for patient's dizziness. Patient says she has no formal diagnosis for pain. Waiter/Waitress Second [employer] discussed medication regimen with patient who agreed to discontinue Prozac, discontinue Wellbutrin, which have not seemed to help and instead start on Cymbalta which can help with both anxiety, depression as well as pain. Patient shuffling around and now reporting falls; video game script writer inquired and she agreed she was not falling last week but says it is only change now due to the increase in pain. At this point, changes seem more due to behaviors rather than organic. Given that patient has a history of Parkinson's and for some reason a pain syndrome that seems undiagnosed, Neuro consult placed as well -will consider increasing gabapentin again -add cyclobenzaprine which she has been on in the past -reportedly patient has history of Parkinson's 03/03 Regarding SI, she says it is still remains; however, mood little better today; tolerating cymbalta 60mg and discussed med changes again. She said that Said due to her anxiety she has been a little snippy with people which she says she has talked to her therapist about Patient mentioned visual hallucinations; she explains to video game script writer that says seeing like a painting on the wall, like people walking around... However with further inquiry, this only occurs when she is waking up from sleep and not otherwise. hold worker discussed with brother who says that this sounds like behavioral episodes patient has had the past Regarding body pain, she says it is actually a little better. She agrees to retry Flexeril to see if that is helpful. Patient complained of dysuria to nurse and asked for UA but was specific and wanting to be straight cathed. Patient had a significant volume of urine removed and is not sure if this is due to urinary retention or if patient is intentionally avoiding urinating; patient told video game script writer she has intermittent history of urinary retention.. She also has been complaining about constipation however has been refusing laxatives/stool softeners. Waiter/Waitress Second [employer] discussed this and patient says she has long history of constipation and is worry about taking medications that will cause copious diarrhea, which happened once before when she laxatives. She agreed however that constipation needs to be relieved and said she would take medications. UA pending: unremarkable (bladder scan q shift w/ strait cath for CC>500) 03/04 Patient reports to video game script writer that her mood is a little better and today no SI. Patient also says that her pain is a little bit better today. She is not sure Flexeril helped but agrees to have it scheduled. Patient up walking around the unit today without assistance. Patient remains with urinary retention via bladder scans. Will get consult. Later in the day video game script writer met with patient again who was feeling more distraught and now saying she is not better at all. Patient says she feels marginalized because she has a disability. Discussed chronic pain with patient and her brother who was also present; patient remained vague about this issue and says she has just learned to deal with it; she is agreeing to increasing gabapentin. Also agrees to clonazepam -will 1st add clonazepam 0.5 mg b.i.d.; she has been on in the past and her anxiety seems to be a major contributor to her experience of pain and her ability to walk freely on her own. -will consider increasing gabapentin as well 03/05 pt says little better but still has SI, though she says it remains less. Pain not alleviated by scheduled flexeril. Pt explained she has a long hx of emotional lability. Agrees Clonazepam lowers anxiety, though it makes her tired. At this time she feels it's a welcomed break from anxiety. Also agrees to increase Gabapentin again, since it seemed to be helping, even if it too makes her tired. -still w/ urinary retention; PA recs to increase bladder scan to q6h and cath for CC>350; will monitor and get Urology consult if persists 03/07- Continue plan Urology consult 03/08 mood is lousy...i've been miserable all my life.. pt says the pain is the same pt went to a couple groups but said she didn't get anything out of it. Talked about medications and pt says I think therapy is better than pills... despite lousy mood pt has given some thought about discharge...has showered, is now walking on her own and off 1:1, urinating on her own and not needing straight cath 03/09 Patient says I do not know when asked how she is doing which is somewhat of an improvement from yesterday. She remains out in the milieu, hanging around others though mostly keeping to herself. Walking fine, remains with no residual urine per bladder scan. Discussed aftercare and patient is amenable to day program -patient has improved somewhat but is still overall depressed; will give it another day or so. If she remains down will consider either increasing Cymbalta or retry and Wellbutrin 03/10 pt difficult with which to engage. On inquiry about mood she says i don't know.... She says SI is there a little and that it comes and goes but is fleeting. No change in pain; remains constipated. Does not notice Wellbutrin which is being re-tried. -that said, she remains out of her room, in the milue and though keeping to herself, is not isolating; walking around on her own well -will try once more to increase Gabapentin to address chronic pain; if not effective or not tolerated, may try lyrica 03/11 Patient again says I do not know to how she is feeling. Remains out of her room, attending groups but mostly keeping to herself. Agrees to titration of medications. Denies AVH 03/12 Wellbutrin was increased to 300; will see if this helps; if not will consider possible increase Cymbalta or try another category; will change clonazepam since though helps with anxiety seems to be making patient tired in the afternoon Plan: CV Q 15 minute checks Increase to Wellbutrin XL 300 mg Continue gabapentin 200 mg t.i.d. for chronic pain (reviewed risks/side-effects) Continue Clonazepam 0.5 mg b.i.d. for anxiety; has been on in the past Swich to PRN Cyclobenzaprine 10 mg t.i.d.prn (with p.r.n.; patient has been on as high doses 20 mg) Continue Cymbalta 60 mg DC fluoxetine famotidine 20 mg b.i.d.; patient says she has chronic GERD risperidone 3 mg q.h.s. prazosin 1 mg q.h.s. Cogentin 0.5 mg b.i.d. Will order H pylori antigen stool test (patient has refused to comply); patient says she has had intractable GERD for a long time; has never been tested for H pylori Patient educated on: diagnosis and medication risk/benefits Informed Consent: understands Reason for continued inpatient stay Substantial Risk for: stable for discharge, rapid decompensation and med/psych decompensation Time Spent With Patient Time: Total time managing care of this patient today ____ minutes.
--- NOTE | 2025-03-13 08:48 | HO.PSYCHPN ---
Subjective Subjective Date of Service: 03/13/25 Reason For Visit: Depression Interim History: Met with patient; discussed with team Patient remains presenting depressed. Says her mood is lousy and affect downcast. Patient says she has a little SI and says that over the years it comes and goes and will flare at certain times. Discussed medication regimen and patient has never tried lithium but agrees to try it now since Wellbutrin has not seem to help much. Mental Status Exam Mental Status Exam Narrative: Pt is alert and oriented; behavior is more calm, in the milieu, on her own walking around; dressed in casual attire with adequate hygiene, having showered; glasses, appears older than chronological age; mood is described as lousy and affect congruent, downcast; eye contact a little avoidant (baseline); Speech is mumbled (which is baseline) but she can slow down and articulate; normal volume; some psychomotor retardation present; thought process is goal directed, concrete; Thought content is on dealing with pain and depression; no delusional ideations expressed; a little SI/no HI; no AVH. Patients insight and judgment impaired but improved...close to baseline? Diagnostics Vital Signs (24Hr): Vital Signs - 24 hr 03/12/25 20:00 Temperature 98.8 F Pulse Rate 117 H Blood Pressure 115/68 Pulse Oximetry 100 BMI result Body Mass Index 25.7 Labs 03/06/25 12:37 03/06/25 12:37 Imaging Radiology Impressions: ITS Impressions Chest X-Ray 02/18/25 09:58 IMPRESSION: Mild interstitial edema and bilateral pleural effusions, small to moderate volume, similar to slightly worsened since prior exam. Electronically signed by: Hamlet Stephens MD 02/18/2025 10:42 AM EDT Medications Medications Current Medications Acetaminophen (Acetaminophen 325 Mg Tablet) 650 mg PO Q6H PRN PRN Reason: Headache/Pain, Scale 1-10 Last Admin: 03/04/25 12:50 Dose: 325 mg Al Hydroxide/Mg Hydroxide (Magnesium Hydrox/Alum Hydrox 30 Ml Oral.Susp) 30 ml PO Q6H PRN PRN Reason: Heartburn/Nausea Atorvastatin Calcium (Atorvastatin Calcium 10 Mg Tablet) 10 mg PO DAILY [facility] Last Admin: 03/12/25 08:39 Dose: 10 mg Benztropine Mesylate (Benztropine Mesylate 0.5 Mg Tablet) 0.5 mg PO BID [facility] Last Admin: 03/12/25 21:08 Dose: 0.5 mg Bupropion HCl (Bupropion Hcl Xl 300 Mg Tab.Er.24h) 300 mg PO DAILY [facility] Last Admin: 03/12/25 08:38 Dose: 300 mg Clonazepam (Clonazepam 0.5 Mg Tablet) 0.5 mg PO BID@0900,1400 [facility] Last Admin: 03/12/25 14:53 Dose: 0.5 mg Cyclobenzaprine HCl (Cyclobenzaprine Hcl 10 Mg Tablet) 10 mg PO TID PRN PRN Reason: Muscle Spasm/aches Last Admin: 03/10/25 21:12 Dose: 10 mg Docusate Sodium (Docusate Sodium 100 Mg Capsule) 100 mg PO DAILY PRN PRN Reason: constipation Last Admin: 03/01/25 09:11 Dose: 100 mg Duloxetine HCl (Duloxetine Hcl 60 Mg Capsule.Dr) 60 mg PO DAILY [facility] Last Admin: 03/12/25 08:38 Dose: 60 mg Famotidine (Famotidine 20 Mg Tablet) 20 mg PO BID [facility] Last Admin: 03/12/25 21:08 Dose: 20 mg Fluticasone Propionate (Fluticasone Propionate Nasal 16 Gm [place]) 2 spray NOSTRIL-B DAILY [facility] Last Admin: 03/12/25 08:38 Dose: 2 spray Gabapentin (Gabapentin 100 Mg Capsule) 200 mg PO TID [facility] Last Admin: 03/12/25 21:08 Dose: 200 mg Hydrocortisone (Hydrocortisone 2.5 % Rectal Cr 30 Gm Tube) 1 appl OR Q6H PRN PRN Reason: Hemorrhoids Hydroxyzine HCl (Hydroxyzine Hcl 25 Mg Tablet) 25 mg PO Q6H PRN PRN Reason: mild anxiety Last Admin: 03/12/25 21:08 Dose: 25 mg Loratadine (Loratadine 10 Mg Tablet) 10 mg PO DAILY [facility] Last Admin: 03/12/25 08:38 Dose: 10 mg Magnesium Hydroxide (Milk Of Magnesia 30 Ml Oral.Susp) 30 ml PO DAILY PRN PRN Reason: Constipation Last Admin: 03/01/25 17:51 Dose: 30 ml Naproxen (Naproxen 500 Mg Tablet) 500 mg PO BID PRN PRN Reason: Pain (Scale Score 1-3) Last Admin: 03/01/25 09:11 Dose: 500 mg Nicotine Polacrilex (Nicotine Polacrilex 2 Mg Gum) 4 mg BUCCAL Q2H PRN PRN Reason: Nicotine Cravings Omeprazole (Omeprazole 40 Mg Capsule.Dr) 40 mg PO BID@0630,1630 [facility] Last Admin: 03/13/25 06:27 Dose: 40 mg Ondansetron HCl (Ondansetron Odt 4 Mg Tab.Rapdis) 4 mg TRANSLINGU Q8H PRN PRN Reason: Nausea and Vomiting Last Admin: 03/06/25 12:03 Dose: 4 mg Polyethylene Glycol (Polyethylene Glycol 3350 17 Gm Powd.Pack) 17 gm PO DAILY PRN PRN Reason: Constipation Last Admin: 03/01/25 09:56 Dose: 17 gm Polyethylene Glycol (Polyethylene Glycol 3350 17 Gm Powd.Pack) 17 gm PO DAILY [facility] Last Admin: 03/12/25 08:39 Dose: 17 gm Prazosin HCl (Prazosin Hcl 1 Mg Capsule) 1 mg PO BEDTIME SYMONE; Protocol Last Admin: 03/12/25 21:08 Dose: 1 mg Risperidone (Risperidone Oral [place] 1 Mg/Ml Solution) 3 mg PO BEDTIME [facility] Last Admin: 03/12/25 21:07 Dose: 3 mg Senna (Sennosides 8.6 Mg Tablet) 17.2 mg PO BEDTIME [facility] Last Admin: 03/12/25 21:08 Dose: 17.2 mg Allergies Allergies Allergy/AdvReac Type Severity Reaction Status Date / Time No Known Allergies Allergy Verified 02/18/25 07:24 [No Known Allergies*] Assessment & Plan Assessment & Plan (1) MDD (major depressive disorder), recurrent severe, without psychosis: Status: Acute Code(s): F33.2 - Major depressive disorder, recurrent severe without psychotic features (2) Anxiety: Status: Acute Code(s): F41.9 - Anxiety disorder, unspecified Plan 54 year-old female with PMHx of Parkinson's with dyskinesia, metabolic encephalopathy, constipation, ulcerative colitis, GERD, IBS, 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 Patient called 911 saying she was short of breath but here in the ED she talked about wanting to . Patient reports that about a month ago, she stopped going to her therapist due to lack of insurance; she says she does not take medications regularly, runs out of them and does not get refills and has been off of her medications for about 2 months. She says that she was doing overall good enough and that depression would come and go. They however she has been feeling more down, tired of always being in pain. Patient explained contributory factors being chronic pain which says seems to have gotten worse recently (patient names almost every part of her body as painful: headaches, joints, stomach, legs, feet...each toe). Patient reports up until a week ago, she was living on her own in her own apartment but this past week she moved into a [facility], saying she needed more support. Over these past few days she became more depressed. Once in the emergency room she says she started to think about ending it... Taking a bunch of pills... Patient explains concretely if I were home I would have done it because I had access to the pills... Here I do not have access to the pills. She reports Hx of SI but has never actually tried to; says usually the feeling passes; reports extreme anxiety since childhood; seems to endorse depressive episodes. -denies AVH or paranoid ideations; she does not know why she is prescribed risperidone -denies drug or alcohol use Formulation/clinical reasoning: Endorses depression and anxiety; has been off her medications which is likely contributory as well as chronic pain though not sure the cause; she says nothing has ever help with her pain before however agrees to start and try gabapentin. Patient with blunted affect and concrete; will seek to rule out ASD. Need collateral Hospital course: 02/21 still feeling down; still thinking of suicide but hopeful not to do it agrees to increase prozac to 40mg; also agrees to increased Gabapentin 300mg TID has not had a BM yet; says chronically has trouble pooping and has been constipated for years -agrees to Mirrilax 02/22 Patient reports that she is still depressed and still feeling suicidal though she reports SI is waning. No bowel movement. No medication side effects and agrees to titration 02/23 says still depressed and still with some SI remaining; agrees to increasing buproprion -still constipated 02/24 says still depressed; still with some SI; talked about anxiety as well. pt says no change in chronic body pain with gabapentin; agrees to titrate 02/25 no change in presentation; still depressed, still w/ some SI. Tried to discuss etiology of depression which she seems to say was sudden and did not have anything to do w/ moving into [facility] 02/[address] IMPRESSION:. No acute intracranial findings. 03/02 Patient had a tough weekend. There was some concern that she slurred her speech was confused or dizzy. Head CT negative. Today patient says she wants to that she is so sad.. And feels so unhappy. Patient is tearful and endorses SI. She can be hard to understand however when commercial real estate underwriter mentions this, she apologizes, slows down her speech and is understandable. She says she has pain everywhere from her head to her toes and everywhere in-between. She thinks maybe it was a little better last week and commercial real estate underwriter mentioned that her gabapentin had been significantly lowered over the weekend possibly out of concern for patient's dizziness. Patient says she has no formal diagnosis for pain. Family And Consumer Education Teacher discussed medication regimen with patient who agreed to discontinue Prozac, discontinue Wellbutrin, which have not seemed to help and instead start on Cymbalta which can help with both anxiety, depression as well as pain. Patient shuffling around and now reporting falls; commercial real estate underwriter inquired and she agreed she was not falling last week but says it is only change now due to the increase in pain. At this point, changes seem more due to behaviors rather than organic. Given that patient has a history of Parkinson's and for some reason a pain syndrome that seems undiagnosed, Neuro consult placed as well -will consider increasing gabapentin again -add cyclobenzaprine which she has been on in the past -reportedly patient has history of Parkinson's 03/03 Regarding SI, she says it is still remains; however, mood little better today; tolerating cymbalta 60mg and discussed med changes again. She said that Said due to her anxiety she has been a little snippy with people which she says she has talked to her therapist about Patient mentioned visual hallucinations; she explains to commercial real estate underwriter that says seeing like a painting on the wall, like people walking around... However with further inquiry, this only occurs when she is waking up from sleep and not otherwise. ground worker discussed with brother who says that this sounds like behavioral episodes patient has had the past Regarding body pain, she says it is actually a little better. She agrees to retry Flexeril to see if that is helpful. Patient complained of dysuria to nurse and asked for UA but was specific and wanting to be straight cathed. Patient had a significant volume of urine removed and is not sure if this is due to urinary retention or if patient is intentionally avoiding urinating; patient told commercial real estate underwriter she has intermittent history of urinary retention.. She also has been complaining about constipation however has been refusing laxatives/stool softeners. Family And Consumer Education Teacher discussed this and patient says she has long history of constipation and is worry about taking medications that will cause copious diarrhea, which happened once before when she laxatives. She agreed however that constipation needs to be relieved and said she would take medications. UA pending: unremarkable (bladder scan q shift w/ strait cath for CC>500) 03/04 Patient reports to commercial real estate underwriter that her mood is a little better and today no SI. Patient also says that her pain is a little bit better today. She is not sure Flexeril helped but agrees to have it scheduled. Patient up walking around the unit today without assistance. Patient remains with urinary retention via bladder scans. Will get consult. Later in the day commercial real estate underwriter met with patient again who was feeling more distraught and now saying she is not better at all. Patient says she feels marginalized because she has a disability. Discussed chronic pain with patient and her brother who was also present; patient remained vague about this issue and says she has just learned to deal with it; she is agreeing to increasing gabapentin. Also agrees to clonazepam -will 1st add clonazepam 0.5 mg b.i.d.; she has been on in the past and her anxiety seems to be a major contributor to her experience of pain and her ability to walk freely on her own. -will consider increasing gabapentin as well 03/05 pt says little better but still has SI, though she says it remains less. Pain not alleviated by scheduled flexeril. Pt explained she has a long hx of emotional lability. Agrees Clonazepam lowers anxiety, though it makes her tired. At this time she feels it's a welcomed break from anxiety. Also agrees to increase Gabapentin again, since it seemed to be helping, even if it too makes her tired. -still w/ urinary retention; PA recs to increase bladder scan to q6h and cath for CC>350; will monitor and get Urology consult if persists 03/07- Continue plan Urology consult 03/08 mood is lousy...i've been miserable all my life.. pt says the pain is the same pt went to a couple groups but said she didn't get anything out of it. Talked about medications and pt says I think therapy is better than pills... despite lousy mood pt has given some thought about discharge...has showered, is now walking on her own and off 1:1, urinating on her own and not needing straight cath 03/09 Patient says I do not know when asked how she is doing which is somewhat of an improvement from yesterday. She remains out in the milieu, hanging around others though mostly keeping to herself. Walking fine, remains with no residual urine per bladder scan. Discussed aftercare and patient is amenable to day program -patient has improved somewhat but is still overall depressed; will give it another day or so. If she remains down will consider either increasing Cymbalta or retry and Wellbutrin 03/10 pt difficult with which to engage. On inquiry about mood she says i don't know.... She says SI is there a little and that it comes and goes but is fleeting. No change in pain; remains constipated. Does not notice Wellbutrin which is being re-tried. -that said, she remains out of her room, in the milue and though keeping to herself, is not isolating; walking around on her own well -will try once more to increase Gabapentin to address chronic pain; if not effective or not tolerated, may try lyrica 03/11 Patient again says I do not know to how she is feeling. Remains out of her room, attending groups but mostly keeping to herself. Agrees to titration of medications. Denies AVH 03/12 Wellbutrin was increased to 300; will see if this helps; if not will consider possible increase Cymbalta or try another category; will change clonazepam since though helps with anxiety seems to be making patient tired in the afternoon 03/13 Patient remains presenting depressed. Says her mood is lousy and affect downcast. Patient says she has a little SI and says that over the years it comes and goes and will flare at certain times. Discussed medication regimen and patient has never tried lithium but agrees to try it now since Wellbutrin has not seem to help much. -ECT? Plan: CV Q 15 minute checks Start lithium ER 300 mg q.h.s.; will review risks/side effects DC Wellbutrin XL has not helped Continue gabapentin 200 mg t.i.d. for chronic pain (reviewed risks/side-effects) Continue Clonazepam 0.5 mg b.i.d. for anxiety; has been on in the past Swich to PRN Cyclobenzaprine 10 mg t.i.d.prn (with p.r.n.; patient has been on as high doses 20 mg) Continue Cymbalta 60 mg DC fluoxetine famotidine 20 mg b.i.d.; patient says she has chronic GERD risperidone 3 mg q.h.s. prazosin 1 mg q.h.s. Cogentin 0.5 mg b.i.d. Will order H pylori antigen stool test (patient has refused to comply); patient says she has had intractable GERD for a long time; has never been tested for H pylori Patient educated on: diagnosis and medication risk/benefits Informed Consent: understands and further education needed Reason for continued inpatient stay Substantial Risk for: rapid decompensation Time Spent With Patient Time: Total time managing care of this patient today ____ minutes.
[2025-03-13] MEDS: Fluticasone Propionate Nasal 16 GM SPRAY 2 SPRAY NOSTRIL-B (09:12)
[2025-03-13] MEDS: buPROPion HCl XL 300 MG TAB.ER.24H PO (09:12)
[2025-03-13] MEDS: Atorvastatin Calcium 10 MG TABLET PO (09:12)
[2025-03-13] MEDS: Benztropine Mesylate 0.5 MG TABLET PO ×2 (09:12→20:22)
[2025-03-13] MEDS: Famotidine 20 MG TABLET PO ×2 (09:12→20:22)
[2025-03-13] MEDS: Gabapentin 100 MG CAPSULE 200 MG PO ×3 (09:12→20:22)
[2025-03-13] MEDS: DULoxetine HCl 60 MG CAPSULE.DR PO (09:12)
[2025-03-13] MEDS: clonazePAM 0.5 MG TABLET 0.25 MG PO ×2 (09:12→13:41)
[2025-03-13] MEDS: polyethylene glycoL 3350 17 GM POWD.PACK PO (09:13)
[2025-03-13] MEDS: Loratadine 10 MG TABLET PO (09:23)
[2025-03-13 19:39] VITALS: BP 107/60; PULSE 88; O2SAT 95
[2025-03-13] MEDS: risperiDONE Oral Sol 1 MG/ML SOLUTION 3 MG PO (20:21)
[2025-03-13] MEDS: Sennosides 8.6 MG TABLET 17.2 MG PO (20:21)
[2025-03-13] MEDS: Lithium Carbonate ER 300 MG TABLET.ER PO (20:22)
[2025-03-13] MEDS: Prazosin HCL 1 MG CAPSULE PO (20:22)
[2025-03-14] MEDS: Omeprazole 40 MG CAPSULE.DR PO ×2 (05:51→16:20)
[2025-03-14 07:50] VITALS: BP 119/79; PULSE 97; TEMP 36.4; O2SAT 98
[2025-03-14] MEDS: Fluticasone Propionate Nasal 16 GM SPRAY 2 SPRAY NOSTRIL-B (09:04)
[2025-03-14] MEDS: Famotidine 20 MG TABLET PO ×2 (09:04→21:18)
[2025-03-14] MEDS: polyethylene glycoL 3350 17 GM POWD.PACK PO (09:04)
[2025-03-14] MEDS: Atorvastatin Calcium 10 MG TABLET PO (09:04)
[2025-03-14] MEDS: Loratadine 10 MG TABLET PO (09:04)
[2025-03-14] MEDS: DULoxetine HCl 60 MG CAPSULE.DR PO (09:05)
[2025-03-14] MEDS: clonazePAM 0.5 MG TABLET 0.25 MG PO ×2 (09:05→13:39)
[2025-03-14] MEDS: Benztropine Mesylate 0.5 MG TABLET PO ×2 (09:05→21:17)
[2025-03-14] MEDS: Gabapentin 100 MG CAPSULE 200 MG PO ×3 (09:05→21:18)
--- NOTE | 2025-03-14 09:40 | P.PNPSI_ITS ---
Subjective Subjective Date of Service: 03/14/25 Reason For Visit: Depression Interim History: met with patient; discussed with team Patient noticeably brighter today and more social, engaged, sitting and interacting with peers. She says her mood is ok which is an improvement. Discussed risks/side effects of lithium and patient agrees to continue Mental Status Exam Mental Status Exam Narrative: Pt is alert and oriented; behavior is more calm, more social and a little more engaged with others, on her own walking around; dressed in hospital pants, casual keila with adequate hygiene; glasses, appears older than chronological age; mood is described as okay and affect congruent, brighter; eye contact a little avoidant (baseline); Speech is mumbled (which is baseline) but she can slow down and articulate; normal volume; some psychomotor retardation present; thought process is goal directed, concrete; Thought content is on dealing with pain and depression; no delusional ideations expressed; intermittent, passive SI; no HI; no AVH. Patients insight and judgment impaired but improved...close to baseline? Diagnostics Vital Signs (24Hr): Vital Signs - 24 hr 03/13/25 19:39 03/14/25 07:50 Temperature 97.6 F Pulse Rate 88 97 Blood Pressure 107/60 119/79 Pulse Oximetry 95 98 Oxygen Delivery Method Room Air Room Air BMI result Body Mass Index 25.7 Labs 03/06/25 12:37 03/06/25 12:37 Imaging Radiology Impressions: ITS Impressions Chest X-Ray 02/18/25 09:58 IMPRESSION: Mild interstitial edema and bilateral pleural effusions, small to moderate volume, similar to slightly worsened since prior exam. Electronically signed by: Hamlet Stephens MD 02/18/2025 10:42 AM EDT Medications Medications Current Medications Acetaminophen (Acetaminophen 325 Mg Tablet) 650 mg PO Q6H PRN PRN Reason: Headache/Pain, Scale 1-10 Last Admin: 03/04/25 12:50 Dose: 325 mg Al Hydroxide/Mg Hydroxide (Magnesium Hydrox/Alum Hydrox 30 Ml Oral.Susp) 30 ml PO Q6H PRN PRN Reason: Heartburn/Nausea Atorvastatin Calcium (Atorvastatin Calcium 10 Mg Tablet) 10 mg PO DAILY SYMONE Last Admin: 03/14/25 09:04 Dose: 10 mg Benztropine Mesylate (Benztropine Mesylate 0.5 Mg Tablet) 0.5 mg PO BID [facility] Last Admin: 03/14/25 09:05 Dose: 0.5 mg Clonazepam (Clonazepam 0.5 Mg Tablet) 0.25 mg PO BID@0900,1400 [facility] Last Admin: 03/14/25 09:05 Dose: 0.25 mg Cyclobenzaprine HCl (Cyclobenzaprine Hcl 10 Mg Tablet) 10 mg PO TID PRN PRN Reason: Muscle Spasm/aches Last Admin: 03/10/25 21:12 Dose: 10 mg Docusate Sodium (Docusate Sodium 100 Mg Capsule) 100 mg PO DAILY PRN PRN Reason: constipation Last Admin: 03/01/25 09:11 Dose: 100 mg Duloxetine HCl (Duloxetine Hcl 60 Mg Capsule.Dr) 60 mg PO DAILY [facility] Last Admin: 03/14/25 09:05 Dose: 60 mg Famotidine (Famotidine 20 Mg Tablet) 20 mg PO BID [facility] Last Admin: 03/14/25 09:04 Dose: 20 mg Fluticasone Propionate (Fluticasone Propionate Nasal 16 Gm [place]) 2 spray NOSTRIL-B DAILY [facility] Last Admin: 03/14/25 09:04 Dose: 2 spray Gabapentin (Gabapentin 100 Mg Capsule) 200 mg PO TID [facility] Last Admin: 03/14/25 09:05 Dose: 200 mg Hydrocortisone (Hydrocortisone 2.5 % Rectal Cr 30 Gm Tube) 1 appl OK Q6H PRN PRN Reason: Hemorrhoids Hydroxyzine HCl (Hydroxyzine Hcl 25 Mg Tablet) 25 mg PO Q6H PRN PRN Reason: mild anxiety Last Admin: 03/12/25 21:08 Dose: 25 mg [place] Carbonate ([place] Carbonate Er 300 Mg Tablet.Er) 300 mg PO BEDTIME [facility] Last Admin: 03/13/25 20:22 Dose: 300 mg Loratadine (Loratadine 10 Mg Tablet) 10 mg PO DAILY [facility] Last Admin: 03/14/25 09:04 Dose: 10 mg Magnesium Hydroxide (Milk Of Magnesia 30 Ml Oral.Susp) 30 ml PO DAILY PRN PRN Reason: Constipation Last Admin: 03/01/25 17:51 Dose: 30 ml Naproxen (Naproxen 500 Mg Tablet) 500 mg PO BID PRN PRN Reason: Pain (Scale Score 1-3) Last Admin: 03/01/25 09:11 Dose: 500 mg Nicotine Polacrilex (Nicotine Polacrilex 2 Mg Gum) 4 mg BUCCAL Q2H PRN PRN Reason: Nicotine Cravings Omeprazole (Omeprazole 40 Mg Capsule.Dr) 40 mg PO BID@0630,1630 [facility] Last Admin: 03/14/25 05:51 Dose: 40 mg Ondansetron HCl (Ondansetron Odt 4 Mg Tab.Rapdis) 4 mg TRANSLINGU Q8H PRN PRN Reason: Nausea and Vomiting Last Admin: 03/06/25 12:03 Dose: 4 mg Polyethylene Glycol (Polyethylene Glycol 3350 17 Gm Powd.Pack) 17 gm PO DAILY PRN PRN Reason: Constipation Last Admin: 03/01/25 09:56 Dose: 17 gm Polyethylene Glycol (Polyethylene Glycol 3350 17 Gm Powd.Pack) 17 gm PO DAILY SYMONE Last Admin: 03/14/25 09:04 Dose: 17 gm Prazosin HCl (Prazosin Hcl 1 Mg Capsule) 1 mg PO BEDTIME SYMONE; Protocol Last Admin: 03/13/25 20:22 Dose: 1 mg Risperidone (Risperidone Oral [place] 1 Mg/Ml Solution) 3 mg PO BEDTIME SYMONE Last Admin: 03/13/25 20:21 Dose: 3 mg Senna (Sennosides 8.6 Mg Tablet) 17.2 mg PO BEDTIME SYMONE Last Admin: 03/13/25 20:21 Dose: 17.2 mg Allergies Allergies Allergy/AdvReac Type Severity Reaction Status Date / Time No Known Allergies Allergy Verified 02/18/25 07:24 [No Known Allergies*] Assessment & Plan Assessment & Plan (1) MDD (major depressive disorder), recurrent severe, without psychosis: Status: Acute Code(s): F33.2 - Major depressive disorder, recurrent severe without psychotic features (2) Anxiety: Status: Acute Code(s): F41.9 - Anxiety disorder, unspecified Plan 54 year-old female with PMHx of Parkinson's with dyskinesia, metabolic encephalopathy, constipation, ulcerative colitis, GERD, IBS, 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 Patient called 911 saying she was short of breath but here in the ED she talked about wanting to . Patient reports that about a month ago, she stopped going to her therapist due to lack of insurance; she says she does not take medications regularly, runs out of them and does not get refills and has been off of her medications for about 2 months. She says that she was doing overall good enough and that depression would come and go. They however she has been feeling more down, tired of always being in pain. Patient explained contributory factors being chronic pain which says seems to have gotten worse recently (patient names almost every part of her body as painful: headaches, joints, stomach, legs, feet...each toe). Patient reports up until a week ago, she was living on her own in her own apartment but this past week she moved into a residential, saying she needed more support. Over these past few days she became more depressed. Once in the emergency room she says she started to think about ending it... Taking a bunch of pills... Patient explains concretely if I were home I would have done it because I had access to the pills... Here I do not have access to the pills. She reports Hx of SI but has never actually tried to; says usually the feeling passes; reports extreme anxiety since childhood; seems to endorse depressive episodes. -denies AVH or paranoid ideations; she does not know why she is prescribed risperidone -denies drug or alcohol use Formulation/clinical reasoning: Endorses depression and anxiety; has been off her medications which is likely contributory as well as chronic pain though not sure the cause; she says nothing has ever help with her pain before however agrees to start and try gabapentin. Patient with blunted affect and concrete; will seek to rule out ASD. Need collateral Hospital course: 02/21 still feeling down; still thinking of suicide but hopeful not to do it agrees to increase prozac to 40mg; also agrees to increased Gabapentin 300mg TID has not had a BM yet; says chronically has trouble pooping and has been constipated for years -agrees to Mirrilax 02/22 Patient reports that she is still depressed and still feeling suicidal though she reports SI is waning. No bowel movement. No medication side effects and agrees to titration 02/23 says still depressed and still with some SI remaining; agrees to increasing buproprion -still constipated 02/24 says still depressed; still with some SI; talked about anxiety as well. pt says no change in chronic body pain with gabapentin; agrees to titrate 02/25 no change in presentation; still depressed, still w/ some SI. Tried to discuss etiology of depression which she seems to say was sudden and did not have anything to do w/ moving into residential 02/[address] IMPRESSION:. No acute intracranial findings. 03/02 Patient had a tough weekend. There was some concern that she slurred her speech was confused or dizzy. Head CT negative. Today patient says she wants to that she is so sad.. And feels so unhappy. Patient is tearful and endorses SI. She can be hard to understand however when quality analyst/technical writer mentions this, she apologizes, slows down her speech and is understandable. She says she has pain everywhere from her head to her toes and everywhere in-between. She thinks maybe it was a little better last week and quality analyst/technical writer mentioned that her gabapentin had been significantly lowered over the weekend possibly out of concern for patient's dizziness. Patient says she has no formal diagnosis for pain. Care Coordinator discussed medication regimen with patient who agreed to discontinue Prozac, discontinue Wellbutrin, which have not seemed to help and instead start on Cymbalta which can help with both anxiety, depression as well as pain. Patient shuffling around and now reporting falls; quality analyst/technical writer inquired and she agreed she was not falling last week but says it is only change now due to the increase in pain. At this point, changes seem more due to behaviors rather than organic. Given that patient has a history of Parkinson's and for some reason a pain syndrome that seems undiagnosed, Neuro consult placed as well -will consider increasing gabapentin again -add cyclobenzaprine which she has been on in the past -reportedly patient has history of Parkinson's 03/03 Regarding SI, she says it is still remains; however, mood little better today; tolerating cymbalta 60mg and discussed med changes again. She said that Said due to her anxiety she has been a little snippy with people which she says she has talked to her therapist about Patient mentioned visual hallucinations; she explains to quality analyst/technical writer that says seeing like a painting on the wall, like people walking around... However with further inquiry, this only occurs when she is waking up from sleep and not otherwise. household worker discussed with brother who says that this sounds like behavioral episodes patient has had the past Regarding body pain, she says it is actually a little better. She agrees to retry Flexeril to see if that is helpful. Patient complained of dysuria to nurse and asked for UA but was specific and wanting to be straight cathed. Patient had a significant volume of urine removed and is not sure if this is due to urinary retention or if patient is intentionally avoiding urinating; patient told quality analyst/technical writer she has intermittent history of urinary retention.. She also has been complaining about constipation however has been refusing laxatives/stool softeners. Care Coordinator discussed this and patient says she has long history of constipation and is worry about taking medications that will cause copious diarrhea, which happened once before when she laxatives. She agreed however that constipation needs to be relieved and said she would take medications. UA pending: unremarkable (bladder scan q shift w/ strait cath for CC>500) 03/04 Patient reports to quality analyst/technical writer that her mood is a little better and today no SI. Patient also says that her pain is a little bit better today. She is not sure Flexeril helped but agrees to have it scheduled. Patient up walking around the unit today without assistance. Patient remains with urinary retention via bladder scans. Will get consult. Later in the day quality analyst/technical writer met with patient again who was feeling more distraught and now saying she is not better at all. Patient says she feels marginalized because she has a disability. Discussed chronic pain with patient and her brother who was also present; patient remained vague about this issue and says she has just learned to deal with it; she is agreeing to increasing gabapentin. Also agrees to clonazepam -will 1st add clonazepam 0.5 mg b.i.d.; she has been on in the past and her anxiety seems to be a major contributor to her experience of pain and her ability to walk freely on her own. -will consider increasing gabapentin as well 03/05 pt says little better but still has SI, though she says it remains less. Pain not alleviated by scheduled flexeril. Pt explained she has a long hx of emotional lability. Agrees Clonazepam lowers anxiety, though it makes her tired. At this time she feels it's a welcomed break from anxiety. Also agrees to increase Gabapentin again, since it seemed to be helping, even if it too makes her tired. -still w/ urinary retention; PA recs to increase bladder scan to q6h and cath for CC>350; will monitor and get Urology consult if persists 03/07- Continue plan Urology consult 03/08 mood is lousy...i've been miserable all my life.. pt says the pain is the same pt went to a couple groups but said she didn't get anything out of it. Talked about medications and pt says I think therapy is better than pills... despite lousy mood pt has given some thought about discharge...has showered, is now walking on her own and off 1:1, urinating on her own and not needing straight cath 03/09 Patient says I do not know when asked how she is doing which is somewhat of an improvement from yesterday. She remains out in the milieu, hanging around others though mostly keeping to herself. Walking fine, remains with no residual urine per bladder scan. Discussed aftercare and patient is amenable to day program -patient has improved somewhat but is still overall depressed; will give it another day or so. If she remains down will consider either increasing Cymbalta or retry and Wellbutrin 03/10 pt difficult with which to engage. On inquiry about mood she says i don't know.... She says SI is there a little and that it comes and goes but is fleeting. No change in pain; remains constipated. Does not notice Wellbutrin which is being re-tried. -that said, she remains out of her room, in the milue and though keeping to herself, is not isolating; walking around on her own well -will try once more to increase Gabapentin to address chronic pain; if not effective or not tolerated, may try lyrica 03/11 Patient again says I do not know to how she is feeling. Remains out of her room, attending groups but mostly keeping to herself. Agrees to titration of medications. Denies AVH 03/12 Wellbutrin was increased to 300; will see if this helps; if not will consider possible increase Cymbalta or try another category; will change clonazepam since though helps with anxiety seems to be making patient tired in the afternoon 03/13 Patient remains presenting depressed. Says her mood is lousy and affect downcast. Patient says she has a little SI and says that over the years it comes and goes and will flare at certain times. Discussed medication regimen and patient has never tried lithium but agrees to try it now since Wellbutrin has not seem to help much. -ECT? 03/14 Patient noticeably brighter today and more social, engaged, sitting and interacting with peers. She says her mood is ok which is an improvement. Patient told nurse that she was having trouble walking and needed assistance however nurse gently challenged patient having just witnessed her walking around the milieu without any trouble. Patient did not contest -Discussed risks/side effects of lithium and patient agrees to continue Plan: CV Q 15 minute checks Continue lithium ER 300 mg q.h.s.; will review risks/side effects DC Wellbutrin XL has not helped Continue gabapentin 200 mg t.i.d. for chronic pain (reviewed risks/side-effects) Continue Clonazepam 0.5 mg b.i.d. for anxiety; has been on in the past Swich to PRN Cyclobenzaprine 10 mg t.i.d.prn (with p.r.n.; patient has been on as high doses 20 mg) Continue Cymbalta 60 mg DC fluoxetine famotidine 20 mg b.i.d.; patient says she has chronic GERD risperidone 3 mg q.h.s. prazosin 1 mg q.h.s. Cogentin 0.5 mg b.i.d. Ordered H pylori antigen stool test (patient has refused to comply); patient says she has had intractable GERD for a long time; has never been tested for H pylori Regarding [place], Risks, side-effects and benefits reviewed with pt, including, but not limited to, damage to kidneys and thyroid; pt was educated on symptoms of lithium toxicity (also discussed, including but not limited to gait, tremor, confusion) and the need to stay away from OTC NSAIDs (specifics reviewed) aside from Tylenol. Patient educated on: diagnosis and medication risk/benefits Informed Consent: understands Reason for continued inpatient stay Substantial Risk for: stable for discharge, rapid decompensation and med/psych decompensation Time Spent With Patient Time: Total time managing care of this patient today ____ minutes.
[2025-03-14 12:35] VITALS: BP 105/60; PULSE 112; RESP 16; O2SAT 96
[2025-03-14 20:00] VITALS: BP 111/77; PULSE 115; TEMP 37.1; O2SAT 96
[2025-03-14] MEDS: Sennosides 8.6 MG TABLET 17.2 MG PO (21:17)
[2025-03-14 21:18] VITALS: BP 111/77
[2025-03-14] MEDS: Lithium Carbonate ER 300 MG TABLET.ER PO (21:18)
[2025-03-14] MEDS: risperiDONE Oral Sol 1 MG/ML SOLUTION 3 MG PO (21:18)
[2025-03-14] MEDS: Prazosin HCL 1 MG CAPSULE PO (21:18)
[2025-03-15] MEDS: Omeprazole 40 MG CAPSULE.DR PO (06:06)
[2025-03-15 07:59] VITALS: BP 112/64; PULSE 93; RESP 18; TEMP 35.9; O2SAT 96
[2025-03-15] MEDS: Benztropine Mesylate 0.5 MG TABLET PO ×2 (09:17→21:02)
[2025-03-15] MEDS: Atorvastatin Calcium 10 MG TABLET PO (09:17)
[2025-03-15] MEDS: clonazePAM 0.5 MG TABLET 0.25 MG PO ×2 (09:17→13:53)
[2025-03-15] MEDS: Gabapentin 100 MG CAPSULE 200 MG PO ×3 (09:17→21:02)
[2025-03-15] MEDS: DULoxetine HCl 60 MG CAPSULE.DR PO (09:17)
[2025-03-15] MEDS: Famotidine 20 MG TABLET PO ×2 (09:17→21:03)
[2025-03-15] MEDS: polyethylene glycoL 3350 17 GM POWD.PACK PO (09:22)
[2025-03-15] MEDS: Fluticasone Propionate Nasal 16 GM SPRAY 2 SPRAY NOSTRIL-B (09:26)
[2025-03-15] MEDS: Loratadine 10 MG TABLET PO (09:26)
--- NOTE | 2025-03-15 16:02 | HO.PSYCHPN ---
Subjective Subjective Date of Service: 03/15/25 Reason For Visit: Depression Interim History: Met with patient; discussed with team Patient reports that today she is lousy though she overall remains more interactive. Patient agrees with increase of lithium. She asks if she could see a neurologist to see if she needs a brain scan and process description writer discuss this. Patient is brother shared that patient used to be much more independent, living on her own, driving, holding down a job; however this was over a decade ago. She ended up living with her mother and patient's brother thinks she just got use to being taken care of. He says she has always been depressed for most of her life and was pretty lonely, never really had friends. Never got diagnosed with ASD but there was discussion of it. She did graduate high school he thinks in regular classes. Mental Status Exam Mental Status Exam Narrative: Pt is alert and oriented; behavior is more calm, more social and a little more engaged with others, on her own walking around; dressed in hospital pants, casual top with adequate hygiene; glasses, appears older than chronological age; mood is described as lousy though affect remains overall brighter; eye contact a little avoidant (baseline); Speech is mumbled (which is baseline) but she can slow down and articulate; normal volume; some psychomotor retardation present; thought process is goal directed, concrete; Thought content is on dealing with pain and depression; no delusional ideations expressed; intermittent, passive SI; no HI; patient reports VH but only at night; Patients insight and judgment impaired but improved...close to baseline? Diagnostics Vital Signs (24Hr): Vital Signs - 24 hr 03/14/25 20:00 03/14/25 21:18 03/15/25 07:59 Temperature 98.7 F 96.7 F L Pulse Rate 115 H 93 Respiratory Rate 18 Blood Pressure 111/77 111/77 112/64 Pulse Oximetry 96 96 Oxygen Delivery Method Room Air Room Air BMI result Body Mass Index 25.7 Labs 03/06/25 12:37 03/06/25 12:37 Imaging Radiology Impressions: ITS Impressions Chest X-Ray 02/18/25 09:58 IMPRESSION: Mild interstitial edema and bilateral pleural effusions, small to moderate volume, similar to slightly worsened since prior exam. Electronically signed by: Hamlet Stephens MD 02/18/2025 10:42 AM EDT Medications Medications Current Medications Acetaminophen (Acetaminophen 325 Mg Tablet) 650 mg PO Q6H PRN PRN Reason: Headache/Pain, Scale 1-10 Last Admin: 03/04/25 12:50 Dose: 325 mg Al Hydroxide/Mg Hydroxide (Magnesium Hydrox/Alum Hydrox 30 Ml Oral.Susp) 30 ml PO Q6H PRN PRN Reason: Heartburn/Nausea Atorvastatin Calcium (Atorvastatin Calcium 10 Mg Tablet) 10 mg PO DAILY [facility] Last Admin: 03/15/25 09:17 Dose: 10 mg Benztropine Mesylate (Benztropine Mesylate 0.5 Mg Tablet) 0.5 mg PO BID [facility] Last Admin: 03/15/25 09:17 Dose: 0.5 mg Clonazepam (Clonazepam 0.5 Mg Tablet) 0.25 mg PO BID@0900,1400 [facility] Last Admin: 03/15/25 13:53 Dose: 0.25 mg Cyclobenzaprine HCl (Cyclobenzaprine Hcl 10 Mg Tablet) 10 mg PO TID PRN PRN Reason: Muscle Spasm/aches Last Admin: 03/10/25 21:12 Dose: 10 mg Docusate Sodium (Docusate Sodium 100 Mg Capsule) 100 mg PO DAILY PRN PRN Reason: constipation Last Admin: 03/01/25 09:11 Dose: 100 mg Duloxetine HCl (Duloxetine Hcl 60 Mg Capsule.Dr) 60 mg PO DAILY [facility] Last Admin: 03/15/25 09:17 Dose: 60 mg Famotidine (Famotidine 20 Mg Tablet) 20 mg PO BID [facility] Last Admin: 03/15/25 09:17 Dose: 20 mg Fluticasone Propionate (Fluticasone Propionate Nasal 16 Gm [place]) 2 spray NOSTRIL-B DAILY [facility] Last Admin: 03/15/25 09:26 Dose: 2 spray Gabapentin (Gabapentin 100 Mg Capsule) 200 mg PO TID [facility] Last Admin: 03/15/25 13:58 Dose: 200 mg Hydrocortisone (Hydrocortisone 2.5 % Rectal Cr 30 Gm Tube) 1 appl [place] Q6H PRN PRN Reason: Hemorrhoids Hydroxyzine HCl (Hydroxyzine Hcl 25 Mg Tablet) 25 mg PO Q6H PRN PRN Reason: mild anxiety Last Admin: 03/12/25 21:08 Dose: 25 mg [place]ham Carbonate (Bonham Carbonate Er 300 Mg Tablet.Er) 600 mg PO BEDTIME [facility] Loratadine (Loratadine 10 Mg Tablet) 10 mg PO DAILY [facility] Last Admin: 03/15/25 09:26 Dose: 10 mg Magnesium Hydroxide (Milk Of Magnesia 30 Ml Oral.Susp) 30 ml PO DAILY PRN PRN Reason: Constipation Last Admin: 03/01/25 17:51 Dose: 30 ml Naproxen (Naproxen 500 Mg Tablet) 500 mg PO BID PRN PRN Reason: Pain (Scale Score 1-3) Last Admin: 03/01/25 09:11 Dose: 500 mg Nicotine Polacrilex (Nicotine Polacrilex 2 Mg Gum) 4 mg BUCCAL Q2H PRN PRN Reason: Nicotine Cravings Omeprazole (Omeprazole 40 Mg Capsule.Dr) 40 mg PO BID@0630,1630 [facility] Last Admin: 03/15/25 06:06 Dose: 40 mg Ondansetron HCl (Ondansetron Odt 4 Mg Tab.Rapdis) 4 mg TRANSLINGU Q8H PRN PRN Reason: Nausea and Vomiting Last Admin: 03/06/25 12:03 Dose: 4 mg Polyethylene Glycol (Polyethylene Glycol 3350 17 Gm Powd.Pack) 17 gm PO DAILY PRN PRN Reason: Constipation Last Admin: 03/01/25 09:56 Dose: 17 gm Polyethylene Glycol (Polyethylene Glycol 3350 17 Gm Powd.Pack) 17 gm PO DAILY [facility] Last Admin: 03/15/25 09:22 Dose: 17 gm Prazosin HCl (Prazosin Hcl 1 Mg Capsule) 1 mg PO BEDTIME SYMONE; Protocol Last Admin: 03/14/25 21:18 Dose: 1 mg Risperidone (Risperidone Oral Lindsay 1 Mg/Ml Solution) 3 mg PO BEDTIME [facility] Last Admin: 03/14/25 21:18 Dose: 3 mg Senna (Sennosides 8.6 Mg Tablet) 17.2 mg PO BEDTIME [facility] Last Admin: 03/14/25 21:17 Dose: 17.2 mg Allergies Allergies Allergy/AdvReac Type Severity Reaction Status Date / Time No Known Allergies Allergy Verified 02/18/25 07:24 [No Known Allergies*] Assessment & Plan Assessment & Plan (1) MDD (major depressive disorder), recurrent severe, without psychosis: Status: Acute Code(s): F33.2 - Major depressive disorder, recurrent severe without psychotic features (2) Anxiety: Status: Acute Code(s): F41.9 - Anxiety disorder, unspecified Plan 54 year-old female with PMHx of Parkinson's with dyskinesia, metabolic encephalopathy, constipation, ulcerative colitis, GERD, IBS, 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 Patient called 911 saying she was short of breath but here in the ED she talked about wanting to . Patient reports that about a month ago, she stopped going to her therapist due to lack of insurance; she says she does not take medications regularly, runs out of them and does not get refills and has been off of her medications for about 2 months. She says that she was doing overall good enough and that depression would come and go. They however she has been feeling more down, tired of always being in pain. Patient explained contributory factors being chronic pain which says seems to have gotten worse recently (patient names almost every part of her body as painful: headaches, joints, stomach, legs, feet...each toe). Patient reports up until a week ago, she was living on her own in her own apartment but this past week she moved into a usp, saying she needed more support. Over these past few days she became more depressed. Once in the emergency room she says she started to think about ending it... Taking a bunch of pills... Patient explains concretely if I were home I would have done it because I had access to the pills... Here I do not have access to the pills. She reports Hx of SI but has never actually tried to; says usually the feeling passes; reports extreme anxiety since childhood; seems to endorse depressive episodes. -denies AVH or paranoid ideations; she does not know why she is prescribed risperidone -denies drug or alcohol use Formulation/clinical reasoning: Endorses depression and anxiety; has been off her medications which is likely contributory as well as chronic pain though not sure the cause; she says nothing has ever help with her pain before however agrees to start and try gabapentin. Patient with blunted affect and concrete; will seek to rule out ASD. Need collateral Hospital course: 02/21 still feeling down; still thinking of suicide but hopeful not to do it agrees to increase prozac to 40mg; also agrees to increased Gabapentin 300mg TID has not had a BM yet; says chronically has trouble pooping and has been constipated for years -agrees to Mirrilax 02/22 Patient reports that she is still depressed and still feeling suicidal though she reports SI is waning. No bowel movement. No medication side effects and agrees to titration 02/23 says still depressed and still with some SI remaining; agrees to increasing buproprion -still constipated 02/24 says still depressed; still with some SI; talked about anxiety as well. pt says no change in chronic body pain with gabapentin; agrees to titrate 02/25 no change in presentation; still depressed, still w/ some SI. Tried to discuss etiology of depression which she seems to say was sudden and did not have anything to do w/ moving into [facility] 02/[address] IMPRESSION:. No acute intracranial findings. 03/02 Patient had a tough weekend. There was some concern that she slurred her speech was confused or dizzy. Head CT negative. Today patient says she wants to that she is so sad.. And feels so unhappy. Patient is tearful and endorses SI. She can be hard to understand however when process description writer mentions this, she apologizes, slows down her speech and is understandable. She says she has pain everywhere from her head to her toes and everywhere in-between. She thinks maybe it was a little better last week and process description writer mentioned that her gabapentin had been significantly lowered over the weekend possibly out of concern for patient's dizziness. Patient says she has no formal diagnosis for pain. Sandstone Splitter discussed medication regimen with patient who agreed to discontinue Prozac, discontinue Wellbutrin, which have not seemed to help and instead start on Cymbalta which can help with both anxiety, depression as well as pain. Patient shuffling around and now reporting falls; process description writer inquired and she agreed she was not falling last week but says it is only change now due to the increase in pain. At this point, changes seem more due to behaviors rather than organic. Given that patient has a history of Parkinson's and for some reason a pain syndrome that seems undiagnosed, Neuro consult placed as well -will consider increasing gabapentin again -add cyclobenzaprine which she has been on in the past -reportedly patient has history of Parkinson's 03/03 Regarding SI, she says it is still remains; however, mood little better today; tolerating cymbalta 60mg and discussed med changes again. She said that Said due to her anxiety she has been a little snippy with people which she says she has talked to her therapist about Patient mentioned visual hallucinations; she explains to process description writer that says seeing like a painting on the wall, like people walking around... However with further inquiry, this only occurs when she is waking up from sleep and not otherwise. mastic worker discussed with brother who says that this sounds like behavioral episodes patient has had the past Regarding body pain, she says it is actually a little better. She agrees to retry Flexeril to see if that is helpful. Patient complained of dysuria to nurse and asked for UA but was specific and wanting to be straight cathed. Patient had a significant volume of urine removed and is not sure if this is due to urinary retention or if patient is intentionally avoiding urinating; patient told process description writer she has intermittent history of urinary retention.. She also has been complaining about constipation however has been refusing laxatives/stool softeners. Sandstone Splitter discussed this and patient says she has long history of constipation and is worry about taking medications that will cause copious diarrhea, which happened once before when she laxatives. She agreed however that constipation needs to be relieved and said she would take medications. UA pending: unremarkable (bladder scan q shift w/ strait cath for CC>500) 03/04 Patient reports to process description writer that her mood is a little better and today no SI. Patient also says that her pain is a little bit better today. She is not sure Flexeril helped but agrees to have it scheduled. Patient up walking around the unit today without assistance. Patient remains with urinary retention via bladder scans. Will get consult. Later in the day process description writer met with patient again who was feeling more distraught and now saying she is not better at all. Patient says she feels marginalized because she has a disability. Discussed chronic pain with patient and her brother who was also present; patient remained vague about this issue and says she has just learned to deal with it; she is agreeing to increasing gabapentin. Also agrees to clonazepam -will 1st add clonazepam 0.5 mg b.i.d.; she has been on in the past and her anxiety seems to be a major contributor to her experience of pain and her ability to walk freely on her own. -will consider increasing gabapentin as well 03/05 pt says little better but still has SI, though she says it remains less. Pain not alleviated by scheduled flexeril. Pt explained she has a long hx of emotional lability. Agrees Clonazepam lowers anxiety, though it makes her tired. At this time she feels it's a welcomed break from anxiety. Also agrees to increase Gabapentin again, since it seemed to be helping, even if it too makes her tired. -still w/ urinary retention; PA recs to increase bladder scan to q6h and cath for CC>350; will monitor and get Urology consult if persists 03/07- Continue plan Urology consult 03/08 mood is lousy...i've been miserable all my life.. pt says the pain is the same pt went to a couple groups but said she didn't get anything out of it. Talked about medications and pt says I think therapy is better than pills... despite lousy mood pt has given some thought about discharge...has showered, is now walking on her own and off 1:1, urinating on her own and not needing straight cath 03/09 Patient says I do not know when asked how she is doing which is somewhat of an improvement from yesterday. She remains out in the milieu, hanging around others though mostly keeping to herself. Walking fine, remains with no residual urine per bladder scan. Discussed aftercare and patient is amenable to day program -patient has improved somewhat but is still overall depressed; will give it another day or so. If she remains down will consider either increasing Cymbalta or retry and Wellbutrin 03/10 pt difficult with which to engage. On inquiry about mood she says i don't know.... She says SI is there a little and that it comes and goes but is fleeting. No change in pain; remains constipated. Does not notice Wellbutrin which is being re-tried. -that said, she remains out of her room, in the milue and though keeping to herself, is not isolating; walking around on her own well -will try once more to increase Gabapentin to address chronic pain; if not effective or not tolerated, may try lyrica 03/11 Patient again says I do not know to how she is feeling. Remains out of her room, attending groups but mostly keeping to herself. Agrees to titration of medications. Denies AVH 03/12 Wellbutrin was increased to 300; will see if this helps; if not will consider possible increase Cymbalta or try another category; will change clonazepam since though helps with anxiety seems to be making patient tired in the afternoon 03/13 Patient remains presenting depressed. Says her mood is lousy and affect downcast. Patient says she has a little SI and says that over the years it comes and goes and will flare at certain times. Discussed medication regimen and patient has never tried lithium but agrees to try it now since Wellbutrin has not seem to help much. -ECT? 03/14 Patient noticeably brighter today and more social, engaged, sitting and interacting with peers. She says her mood is ok which is an improvement. Patient told nurse that she was having trouble walking and needed assistance however nurse gently challenged patient having just witnessed her walking around the milieu without any trouble. Patient did not contest -Discussed risks/side effects of lithium and patient agrees to continue 03/15 Patient reports that today she is lousy though she overall remains more interactive. Patient agrees with increase of lithium. She asks if she could see a neurologist to see if she needs a brain scan and process description writer discuss this. Patient is brother shared that patient used to be much more independent, living on her own, driving, holding down a job; however this was over a decade ago. She ended up living with her mother and patient's brother thinks she just got use to being taken care of. He says she has always been depressed for most of her life and was pretty lonely, never really had friends. Never got diagnosed with ASD but there was discussion of it. She did graduate high school he thinks in regular classes. Plan: CV Q 15 minute checks Increase to lithium ER 600 mg q.h.s.; process description writer reviewed risks/side effects of this medication and she agrees DC Wellbutrin XL has not helped Continue gabapentin 200 mg t.i.d. for chronic pain (reviewed risks/side-effects) Continue Clonazepam 0.5 mg b.i.d. for anxiety; has been on in the past Swich to PRN Cyclobenzaprine 10 mg t.i.d.prn (with p.r.n.; patient has been on as high doses 20 mg) Continue Cymbalta 60 mg DC fluoxetine famotidine 20 mg b.i.d.; patient says she has chronic GERD risperidone 3 mg q.h.s. prazosin 1 mg q.h.s. Cogentin 0.5 mg b.i.d. Ordered H pylori antigen stool test (patient has refused to comply); patient says she has had intractable GERD for a long time; has never been tested for H pylori Regarding [place], Risks, side-effects and benefits reviewed with pt, including, but not limited to, damage to kidneys and thyroid; pt was educated on symptoms of lithium toxicity (also discussed, including but not limited to gait, tremor, confusion) and the need to stay away from OTC NSAIDs (specifics reviewed) aside from Tylenol. Patient educated on: diagnosis and medication risk/benefits Informed Consent: understands and further education needed Reason for continued inpatient stay Substantial Risk for: stable for discharge, rapid decompensation and med/psych decompensation Time Spent With Patient Time: Total time managing care of this patient today ____ minutes.
[2025-03-15 20:00] VITALS: BP 108/68; PULSE 104; TEMP 37.2; O2SAT 95
[2025-03-15 21:02] VITALS: BP 108/68
[2025-03-15] MEDS: risperiDONE Oral Sol 1 MG/ML SOLUTION 3 MG PO (21:02)
[2025-03-15] MEDS: Prazosin HCL 1 MG CAPSULE PO (21:02)
[2025-03-15] MEDS: Sennosides 8.6 MG TABLET 17.2 MG PO (21:02)
[2025-03-15] MEDS: Lithium Carbonate ER 300 MG TABLET.ER 600 MG PO (21:02)
[2025-03-15] MEDS: hydrOXYzine HCL 25 MG TABLET PO (21:03)
[2025-03-16 08:00] VITALS: BP 96/55; PULSE 90; RESP 16; TEMP 36.6; O2SAT 94
[2025-03-16] MEDS: Benztropine Mesylate 0.5 MG TABLET PO ×2 (08:31→20:46)
[2025-03-16] MEDS: Gabapentin 100 MG CAPSULE 200 MG PO ×3 (08:31→20:46)
[2025-03-16] MEDS: DULoxetine HCl 60 MG CAPSULE.DR PO (08:32)
[2025-03-16] MEDS: Atorvastatin Calcium 10 MG TABLET PO (08:32)
[2025-03-16] MEDS: Loratadine 10 MG TABLET PO (08:32)
[2025-03-16] MEDS: Omeprazole 40 MG CAPSULE.DR PO ×2 (08:32→17:50)
[2025-03-16] MEDS: clonazePAM 0.5 MG TABLET 0.25 MG PO ×2 (08:32→14:39)
[2025-03-16] MEDS: Famotidine 20 MG TABLET PO ×2 (08:32→20:46)
[2025-03-16] MEDS: Fluticasone Propionate Nasal 16 GM SPRAY 2 SPRAY NOSTRIL-B (08:33)
--- NOTE | 2025-03-16 10:15 | P.PNPSI_ITS ---
Subjective Subjective Date of Service: 03/16/25 Reason For Visit: Depression Interim History: met with patient; discussed with team Patient reports that she is doing all right... And says she is without any SI and no longer thinking at all about overdosing on medication. Discussed lithium and she agrees to increase and to see if it is effective. Mental Status Exam Mental Status Exam Narrative: Pt is alert and oriented; behavior is more calm, more social and is more engaged with others, on her own walking around; dressed in hospital pants, casual top with adequate hygiene; glasses, appears older than chronological age; mood is described as alright and affect remains overall brighter; eye contact a little avoidant (baseline); Speech is mumbled (which is baseline) but she can slow down and articulate; normal volume; some psychomotor retardation present; thought process is goal directed, concrete; Thought content is on dealing with pain and depression; no delusional ideations expressed; no SI; no HI; patient reports VH but only at night; Patients insight and judgment impaired but improved...close to baseline? Diagnostics Vital Signs (24Hr): Vital Signs - 24 hr 03/15/25 20:00 03/15/25 21:02 03/16/25 08:00 Temperature 98.9 F 97.8 F Pulse Rate 104 H 90 Respiratory Rate 16 Blood Pressure 108/68 108/68 96/55 L Pulse Oximetry 95 94 Oxygen Delivery Method Room Air Room Air BMI result Body Mass Index 25.7 Labs 03/06/25 12:37 03/06/25 12:37 Imaging Radiology Impressions: ITS Impressions Chest X-Ray 02/18/25 09:58 IMPRESSION: Mild interstitial edema and bilateral pleural effusions, small to moderate volume, similar to slightly worsened since prior exam. Electronically signed by: Hamlet Stephens MD 02/18/2025 10:42 AM EDT Medications Medications Current Medications Acetaminophen (Acetaminophen 325 Mg Tablet) 650 mg PO Q6H PRN PRN Reason: Headache/Pain, Scale 1-10 Last Admin: 03/04/25 12:50 Dose: 325 mg Al Hydroxide/Mg Hydroxide (Magnesium Hydrox/Alum Hydrox 30 Ml Oral.Susp) 30 ml PO Q6H PRN PRN Reason: Heartburn/Nausea Atorvastatin Calcium (Atorvastatin Calcium 10 Mg Tablet) 10 mg PO DAILY [facility] Last Admin: 03/16/25 08:32 Dose: 10 mg Benztropine Mesylate (Benztropine Mesylate 0.5 Mg Tablet) 0.5 mg PO BID [facility] Last Admin: 03/16/25 08:31 Dose: 0.5 mg Clonazepam (Clonazepam 0.5 Mg Tablet) 0.25 mg PO BID@0900,1400 [facility] Last Admin: 03/16/25 08:32 Dose: 0.25 mg Cyclobenzaprine HCl (Cyclobenzaprine Hcl 10 Mg Tablet) 10 mg PO TID PRN PRN Reason: Muscle Spasm/aches Last Admin: 03/10/25 21:12 Dose: 10 mg Docusate Sodium (Docusate Sodium 100 Mg Capsule) 100 mg PO DAILY PRN PRN Reason: constipation Last Admin: 03/01/25 09:11 Dose: 100 mg Duloxetine HCl (Duloxetine Hcl 60 Mg Capsule.Dr) 60 mg PO DAILY [facility] Last Admin: 03/16/25 08:32 Dose: 60 mg Famotidine (Famotidine 20 Mg Tablet) 20 mg PO BID [facility] Last Admin: 03/16/25 08:32 Dose: 20 mg Fluticasone Propionate (Fluticasone Propionate Nasal 16 Gm Rochert) 2 spray NOSTRIL-B DAILY [facility] Last Admin: 03/16/25 08:33 Dose: 2 spray Gabapentin (Gabapentin 100 Mg Capsule) 200 mg PO TID [facility] Last Admin: 03/16/25 08:31 Dose: 200 mg Hydrocortisone (Hydrocortisone 2.5 % Rectal Cr 30 Gm Tube) 1 appl IN Q6H PRN PRN Reason: Hemorrhoids Hydroxyzine HCl (Hydroxyzine Hcl 25 Mg Tablet) 25 mg PO Q6H PRN PRN Reason: mild anxiety Last Admin: 03/15/25 21:03 Dose: 25 mg [place] Carbonate ([place] Carbonate Er 300 Mg Tablet.Er) 600 mg PO BEDTIME [facility] Last Admin: 03/15/25 21:02 Dose: 600 mg Loratadine (Loratadine 10 Mg Tablet) 10 mg PO DAILY [facility] Last Admin: 03/16/25 08:32 Dose: 10 mg Magnesium Hydroxide (Milk Of Magnesia 30 Ml Oral.Susp) 30 ml PO DAILY PRN PRN Reason: Constipation Last Admin: 03/01/25 17:51 Dose: 30 ml Naproxen (Naproxen 500 Mg Tablet) 500 mg PO BID PRN PRN Reason: Pain (Scale Score 1-3) Last Admin: 03/01/25 09:11 Dose: 500 mg Nicotine Polacrilex (Nicotine Polacrilex 2 Mg Gum) 4 mg BUCCAL Q2H PRN PRN Reason: Nicotine Cravings Omeprazole (Omeprazole 40 Mg Capsule.Dr) 40 mg PO BID@0630,1630 [facility] Last Admin: 03/16/25 08:54 Dose: Not Given Ondansetron HCl (Ondansetron Odt 4 Mg Tab.Rapdis) 4 mg TRANSLINGU Q8H PRN PRN Reason: Nausea and Vomiting Last Admin: 03/06/25 12:03 Dose: 4 mg Polyethylene Glycol (Polyethylene Glycol 3350 17 Gm Powd.Pack) 17 gm PO DAILY PRN PRN Reason: Constipation Last Admin: 03/01/25 09:56 Dose: 17 gm Polyethylene Glycol (Polyethylene Glycol 3350 17 Gm Powd.Pack) 17 gm PO DAILY [facility] Last Admin: 03/16/25 08:36 Dose: Not Given Prazosin HCl (Prazosin Hcl 1 Mg Capsule) 1 mg PO BEDTIME [facility]; Protocol Last Admin: 03/15/25 21:02 Dose: 1 mg Risperidone (Risperidone Oral Lindsay 1 Mg/Ml Solution) 3 mg PO BEDTIME [facility] Last Admin: 03/15/25 21:02 Dose: 3 mg Senna (Sennosides 8.6 Mg Tablet) 17.2 mg PO BEDTIME [facility] Last Admin: 03/15/25 21:02 Dose: 17.2 mg Allergies Allergies Allergy/AdvReac Type Severity Reaction Status Date / Time No Known Allergies Allergy Verified 02/18/25 07:24 [No Known Allergies*] Assessment & Plan Assessment & Plan (1) MDD (major depressive disorder), recurrent severe, without psychosis: Status: Acute Code(s): F33.2 - Major depressive disorder, recurrent severe without psychotic features (2) Anxiety: Status: Acute Code(s): F41.9 - Anxiety disorder, unspecified Plan 54 year-old female with PMHx of Parkinson's with dyskinesia, metabolic encephalopathy, constipation, ulcerative colitis, GERD, IBS, 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 Patient called 911 saying she was short of breath but here in the ED she talked about wanting to . Patient reports that about a month ago, she stopped going to her therapist due to lack of insurance; she says she does not take medications regularly, runs out of them and does not get refills and has been off of her medications for about 2 months. She says that she was doing overall good enough and that depression would come and go. They however she has been feeling more down, tired of always being in pain. Patient explained contributory factors being chronic pain which says seems to have gotten worse recently (patient names almost every part of her body as painful: headaches, joints, stomach, legs, feet...each toe). Patient reports up until a week ago, she was living on her own in her own apartment but this past week she moved into a [place] [facility] [place], saying she needed more support. Over these past few days she became more depressed. Once in the emergency room she says she started to think about ending it... Taking a bunch of pills... Patient explains concretely if I were home I would have done it because I had access to the pills... Here I do not have access to the pills. She reports Hx of SI but has never actually tried to; says usually the feeling passes; reports extreme anxiety since childhood; seems to endorse depressive episodes. -denies AVH or paranoid ideations; she does not know why she is prescribed risperidone -denies drug or alcohol use Formulation/clinical reasoning: Endorses depression and anxiety; has been off her medications which is likely contributory as well as chronic pain though not sure the cause; she says nothing has ever help with her pain before however agrees to start and try gabapentin. Patient with blunted affect and concrete; will seek to rule out ASD. Need collateral Hospital course: 02/21 still feeling down; still thinking of suicide but hopeful not to do it agrees to increase prozac to 40mg; also agrees to increased Gabapentin 300mg TID has not had a BM yet; says chronically has trouble pooping and has been constipated for years -agrees to Mirrilax 02/22 Patient reports that she is still depressed and still feeling suicidal though she reports SI is waning. No bowel movement. No medication side effects and agrees to titration 02/23 says still depressed and still with some SI remaining; agrees to increasing buproprion -still constipated 02/24 says still depressed; still with some SI; talked about anxiety as well. pt says no change in chronic body pain with gabapentin; agrees to titrate 02/25 no change in presentation; still depressed, still w/ some SI. Tried to discuss etiology of depression which she seems to say was sudden and did not have anything to do w/ moving into [place] [facility] 02/[address] IMPRESSION:. No acute intracranial findings. 03/02 Patient had a tough weekend. There was some concern that she slurred her speech was confused or dizzy. Head CT negative. Today patient says she wants to that she is so sad.. And feels so unhappy. Patient is tearful and endorses SI. She can be hard to understand however when marine underwriter mentions this, she apologizes, slows down her speech and is understandable. She says she has pain everywhere from her head to her toes and everywhere in-between. She thinks maybe it was a little better last week and marine underwriter mentioned that her gabapentin had been significantly lowered over the weekend possibly out of concern for patient's dizziness. Patient says she has no formal diagnosis for pain. Machine Maintenance Technician discussed medication regimen with patient who agreed to discontinue Prozac, discontinue Wellbutrin, which have not seemed to help and instead start on Cymbalta which can help with both anxiety, depression as well as pain. Patient shuffling around and now reporting falls; marine underwriter inquired and she agreed she was not falling last week but says it is only change now due to the increase in pain. At this point, changes seem more due to behaviors rather than organic. Given that patient has a history of Parkinson's and for some reason a pain syndrome that seems undiagnosed, Neuro consult placed as well -will consider increasing gabapentin again -add cyclobenzaprine which she has been on in the past -reportedly patient has history of Parkinson's 03/03 Regarding SI, she says it is still remains; however, mood little better today; tolerating cymbalta 60mg and discussed med changes again. She said that Said due to her anxiety she has been a little snippy with people which she says she has talked to her therapist about Patient mentioned visual hallucinations; she explains to marine underwriter that says seeing like a painting on the wall, like people walking around... However with further inquiry, this only occurs when she is waking up from sleep and not otherwise. bench worker hollow handle discussed with brother who says that this sounds like behavioral episodes patient has had the past Regarding body pain, she says it is actually a little better. She agrees to retry Flexeril to see if that is helpful. Patient complained of dysuria to nurse and asked for UA but was specific and wanting to be straight cathed. Patient had a significant volume of urine removed and is not sure if this is due to urinary retention or if patient is intentionally avoiding urinating; patient told marine underwriter she has intermittent history of urinary retention.. She also has been complaining about constipation however has been refusing laxatives/stool softeners. Machine Maintenance Technician discussed this and patient says she has long history of constipation and is worry about taking medications that will cause copious diarrhea, which happened once before when she laxatives. She agreed however that constipation needs to be relieved and said she would take medications. UA pending: unremarkable (bladder scan q shift w/ strait cath for CC>500) 03/04 Patient reports to marine underwriter that her mood is a little better and today no SI. Patient also says that her pain is a little bit better today. She is not sure Flexeril helped but agrees to have it scheduled. Patient up walking around the unit today without assistance. Patient remains with urinary retention via bladder scans. Will get consult. Later in the day marine underwriter met with patient again who was feeling more distraught and now saying she is not better at all. Patient says she feels marginalized because she has a disability. Discussed chronic pain with patient and her brother who was also present; patient remained vague about this issue and says she has just learned to deal with it; she is agreeing to increasing gabapentin. Also agrees to clonazepam -will 1st add clonazepam 0.5 mg b.i.d.; she has been on in the past and her anxiety seems to be a major contributor to her experience of pain and her ability to walk freely on her own. -will consider increasing gabapentin as well 03/05 pt says little better but still has SI, though she says it remains less. Pain not alleviated by scheduled flexeril. Pt explained she has a long hx of emotional lability. Agrees Clonazepam lowers anxiety, though it makes her tired. At this time she feels it's a welcomed break from anxiety. Also agrees to increase Gabapentin again, since it seemed to be helping, even if it too makes her tired. -still w/ urinary retention; PA recs to increase bladder scan to q6h and cath for CC>350; will monitor and get Urology consult if persists 03/07- Continue plan Urology consult 03/08 mood is lousy...i've been miserable all my life.. pt says the pain is the same pt went to a couple groups but said she didn't get anything out of it. Talked about medications and pt says I think therapy is better than pills... despite lousy mood pt has given some thought about discharge...has showered, is now walking on her own and off 1:1, urinating on her own and not needing straight cath 03/09 Patient says I do not know when asked how she is doing which is somewhat of an improvement from yesterday. She remains out in the milieu, hanging around others though mostly keeping to herself. Walking fine, remains with no residual urine per bladder scan. Discussed aftercare and patient is amenable to day program -patient has improved somewhat but is still overall depressed; will give it another day or so. If she remains down will consider either increasing Cymbalta or retry and Wellbutrin 03/10 pt difficult with which to engage. On inquiry about mood she says i don't know.... She says SI is there a little and that it comes and goes but is fleeting. No change in pain; remains constipated. Does not notice Wellbutrin which is being re-tried. -that said, she remains out of her room, in the milue and though keeping to herself, is not isolating; walking around on her own well -will try once more to increase Gabapentin to address chronic pain; if not effective or not tolerated, may try lyrica 03/11 Patient again says I do not know to how she is feeling. Remains out of her room, attending groups but mostly keeping to herself. Agrees to titration of medications. Denies AVH 03/12 Wellbutrin was increased to 300; will see if this helps; if not will consider possible increase Cymbalta or try another category; will change clonazepam since though helps with anxiety seems to be making patient tired in the afternoon 03/13 Patient remains presenting depressed. Says her mood is lousy and affect downcast. Patient says she has a little SI and says that over the years it comes and goes and will flare at certain times. Discussed medication regimen and patient has never tried lithium but agrees to try it now since Wellbutrin has not seem to help much. -ECT? 03/14 Patient noticeably brighter today and more social, engaged, sitting and interacting with peers. She says her mood is ok which is an improvement. Patient told nurse that she was having trouble walking and needed assistance however nurse gently challenged patient having just witnessed her walking around the milieu without any trouble. Patient did not contest -Discussed risks/side effects of lithium and patient agrees to continue 03/15 Patient reports that today she is lousy though she overall remains more interactive. Patient agrees with increase of lithium. She asks if she could see a neurologist to see if she needs a brain scan and marine underwriter discuss this. Patient is brother shared that patient used to be much more independent, living on her own, driving, holding down a job; however this was over a decade ago. She ended up living with her mother and patient's brother thinks she just got use to being taken care of. He says she has always been depressed for most of her life and was pretty lonely, never really had friends. Never got diagnosed with ASD but there was discussion of it. She did graduate high school he thinks in regular classes. 03/16 Patient reports that she is doing all right... And says she is without any SI and no longer thinking at all about overdosing on medication. Discussed lithium and she agrees to increase and to see if it is effective. -not sure what to make of intermittent visual hallucinations; they occur at night seemingly when she is waking or falling asleep. Plan: CV Q 15 minute checks Increased to lithium ER 600 mg q.h.s.; marine underwriter reviewed risks/side effects of this medication and she agrees DC Wellbutrin XL has not helped Continue gabapentin 200 mg t.i.d. for chronic pain (reviewed risks/side-effects) Lowered Clonazepam 0.25 mg b.i.d. for anxiety; has been on in the past Swich to PRN Cyclobenzaprine 10 mg t.i.d.prn (with p.r.n.; patient has been on as high doses 20 mg) Continue Cymbalta 60 mg DC fluoxetine famotidine 20 mg b.i.d.; patient says she has chronic GERD risperidone 3 mg q.h.s. prazosin 1 mg q.h.s. Cogentin 0.5 mg b.i.d. Ordered H pylori antigen stool test (patient has refused to comply); patient says she has had intractable GERD for a long time; has never been tested for H pylori Regarding [place], Risks, side-effects and benefits reviewed with pt, including, but not limited to, damage to kidneys and thyroid; pt was educated on symptoms of lithium toxicity (also discussed, including but not limited to gait, tremor, confusion) and the need to stay away from OTC NSAIDs (specifics reviewed) aside from Tylenol. Patient educated on: diagnosis, medication risk/benefits and therapeutic strategies Informed Consent: understands and further education needed Reason for continued inpatient stay Substantial Risk for: rapid decompensation Time Spent With Patient Time: Total time managing care of this patient today ____ minutes.
[2025-03-16 20:00] VITALS: BP 109/66; PULSE 111; TEMP 36.9; O2SAT 100
[2025-03-16] MEDS: risperiDONE Oral Sol 1 MG/ML SOLUTION 3 MG PO (20:45)
[2025-03-16 20:46] VITALS: BP 109/66
[2025-03-16] MEDS: Sennosides 8.6 MG TABLET 17.2 MG PO (20:46)
[2025-03-16] MEDS: Prazosin HCL 1 MG CAPSULE PO (20:46)
[2025-03-16] MEDS: Lithium Carbonate ER 300 MG TABLET.ER 600 MG PO (20:46)
[2025-03-17] MEDS: Omeprazole 40 MG CAPSULE.DR PO ×2 (06:26→17:14)
[2025-03-17 08:00] VITALS: BP 115/71; PULSE 95; RESP 16; TEMP 36.6; O2SAT 97
[2025-03-17] MEDS: Fluticasone Propionate Nasal 16 GM SPRAY 2 SPRAY NOSTRIL-B (10:18)
[2025-03-17] MEDS: DULoxetine HCl 60 MG CAPSULE.DR PO (10:18)
[2025-03-17] MEDS: Atorvastatin Calcium 10 MG TABLET PO (10:19)
[2025-03-17] MEDS: Famotidine 20 MG TABLET PO ×2 (10:19→22:36)
[2025-03-17] MEDS: Gabapentin 100 MG CAPSULE 200 MG PO ×3 (10:19→22:35)
[2025-03-17] MEDS: Benztropine Mesylate 0.5 MG TABLET PO ×2 (10:19→22:35)
[2025-03-17] MEDS: clonazePAM 0.5 MG TABLET 0.25 MG PO ×2 (10:19→14:48)
[2025-03-17] MEDS: Loratadine 10 MG TABLET PO (10:19)
--- NOTE | 2025-03-17 11:37 | HO.PSYCHPN ---
Subjective Subjective Date of Service: 03/17/25 Reason For Visit: Depression Interim History: Met with patient; discussed with team pt says she's alright and for first time agrees that she's doing overall a little better. Agrees to continue with Thebes. Says that sometimes she sees what resembles pictures on a movie screen...even during the daytime. It's fleeting; does not bother her Mental Status Exam Mental Status Exam Narrative: Pt is alert and oriented; behavior is more calm, more social and is more engaged with others, on her own walking around; dressed in hospital pants, casual top with adequate hygiene; glasses, appears older than chronological age; mood is described as alright and affect remains overall brighter; eye contact a little avoidant (baseline); Speech is mumbled (which is baseline) but she can slow down and articulate; normal volume; some psychomotor retardation present; thought process is goal directed, concrete; Thought content is on dealing with pain and depression; no delusional ideations expressed; no SI; no HI; patient reports intermittent VH that does not bother her; Patients insight and judgment adequate and at baseline Diagnostics Vital Signs (24Hr): Vital Signs - 24 hr 03/16/25 20:00 03/16/25 20:46 Temperature 98.4 F Pulse Rate 111 H Blood Pressure 109/66 109/66 Pulse Oximetry 100 Oxygen Delivery Method Room Air BMI result Body Mass Index 25.7 Labs 03/06/25 12:37 03/06/25 12:37 Imaging Radiology Impressions: ITS Impressions Chest X-Ray 02/18/25 09:58 IMPRESSION: Mild interstitial edema and bilateral pleural effusions, small to moderate volume, similar to slightly worsened since prior exam. Electronically signed by: Hamlet Stephens MD 02/18/2025 10:42 AM EDT Medications Medications Current Medications Acetaminophen (Acetaminophen 325 Mg Tablet) 650 mg PO Q6H PRN PRN Reason: Headache/Pain, Scale 1-10 Last Admin: 03/04/25 12:50 Dose: 325 mg Al Hydroxide/Mg Hydroxide (Magnesium Hydrox/Alum Hydrox 30 Ml Oral.Susp) 30 ml PO Q6H PRN PRN Reason: Heartburn/Nausea Atorvastatin Calcium (Atorvastatin Calcium 10 Mg Tablet) 10 mg PO DAILY [facility] Last Admin: 03/17/25 10:19 Dose: 10 mg Benztropine Mesylate (Benztropine Mesylate 0.5 Mg Tablet) 0.5 mg PO BID [facility] Last Admin: 03/17/25 10:19 Dose: 0.5 mg Clonazepam (Clonazepam 0.5 Mg Tablet) 0.25 mg PO BID@0900,1400 [facility] Last Admin: 03/17/25 10:19 Dose: 0.25 mg Cyclobenzaprine HCl (Cyclobenzaprine Hcl 10 Mg Tablet) 10 mg PO TID PRN PRN Reason: Muscle Spasm/aches Last Admin: 03/10/25 21:12 Dose: 10 mg Docusate Sodium (Docusate Sodium 100 Mg Capsule) 100 mg PO DAILY PRN PRN Reason: constipation Last Admin: 03/01/25 09:11 Dose: 100 mg Duloxetine HCl (Duloxetine Hcl 60 Mg Capsule.Dr) 60 mg PO DAILY [facility] Last Admin: 03/17/25 10:18 Dose: 60 mg Famotidine (Famotidine 20 Mg Tablet) 20 mg PO BID [facility] Last Admin: 03/17/25 10:19 Dose: 20 mg Fluticasone Propionate (Fluticasone Propionate Nasal 16 Gm [place]) 2 spray NOSTRIL-B DAILY [facility] Last Admin: 03/17/25 10:18 Dose: 2 spray Gabapentin (Gabapentin 100 Mg Capsule) 200 mg PO TID [facility] Last Admin: 03/17/25 10:19 Dose: 200 mg Hydrocortisone (Hydrocortisone 2.5 % Rectal Cr 30 Gm Tube) 1 appl [place] Q6H PRN PRN Reason: Hemorrhoids Hydroxyzine HCl (Hydroxyzine Hcl 25 Mg Tablet) 25 mg PO Q6H PRN PRN Reason: mild anxiety Last Admin: 03/15/25 21:03 Dose: 25 mg Thebes Carbonate (Thebes Carbonate Er 300 Mg Tablet.Er) 600 mg PO BEDTIME [facility] Last Admin: 03/16/25 20:46 Dose: 600 mg Loratadine (Loratadine 10 Mg Tablet) 10 mg PO DAILY [facility] Last Admin: 03/17/25 10:19 Dose: 10 mg Magnesium Hydroxide (Milk Of Magnesia 30 Ml Oral.Susp) 30 ml PO DAILY PRN PRN Reason: Constipation Last Admin: 03/01/25 17:51 Dose: 30 ml Naproxen (Naproxen 500 Mg Tablet) 500 mg PO BID PRN PRN Reason: Pain (Scale Score 1-3) Last Admin: 03/01/25 09:11 Dose: 500 mg Nicotine Polacrilex (Nicotine Polacrilex 2 Mg Gum) 4 mg BUCCAL Q2H PRN PRN Reason: Nicotine Cravings Omeprazole (Omeprazole 40 Mg Capsule.Dr) 40 mg PO BID@0630,1630 [facility] Last Admin: 03/17/25 06:26 Dose: 40 mg Ondansetron HCl (Ondansetron Odt 4 Mg Tab.Rapdis) 4 mg TRANSLINGU Q8H PRN PRN Reason: Nausea and Vomiting Last Admin: 03/06/25 12:03 Dose: 4 mg Polyethylene Glycol (Polyethylene Glycol 3350 17 Gm Powd.Pack) 17 gm PO DAILY PRN PRN Reason: Constipation Last Admin: 03/01/25 09:56 Dose: 17 gm Polyethylene Glycol (Polyethylene Glycol 3350 17 Gm Powd.Pack) 17 gm PO DAILY [facility] Last Admin: 03/17/25 10:28 Dose: Not Given Prazosin HCl (Prazosin Hcl 1 Mg Capsule) 1 mg PO BEDTIME [facility]; Protocol Last Admin: 03/16/25 20:46 Dose: 1 mg Risperidone (Risperidone Oral Lindsay 1 Mg/Ml Solution) 3 mg PO BEDTIME [facility] Last Admin: 03/16/25 20:45 Dose: 3 mg Senna (Sennosides 8.6 Mg Tablet) 17.2 mg PO BEDTIME [facility] Last Admin: 03/16/25 20:46 Dose: 17.2 mg Allergies Allergies Allergy/AdvReac Type Severity Reaction Status Date / Time No Known Allergies Allergy Verified 02/18/25 07:24 [No Known Allergies*] Assessment & Plan Assessment & Plan (1) MDD (major depressive disorder), recurrent severe, without psychosis: Status: Acute Code(s): F33.2 - Major depressive disorder, recurrent severe without psychotic features (2) Anxiety: Status: Acute Code(s): F41.9 - Anxiety disorder, unspecified Plan 54 year-old female with PMHx of Parkinson's with dyskinesia, metabolic encephalopathy, constipation, ulcerative colitis, GERD, IBS, 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 Patient called 911 saying she was short of breath but here in the ED she talked about wanting to . Patient reports that about a month ago, she stopped going to her therapist due to lack of insurance; she says she does not take medications regularly, runs out of them and does not get refills and has been off of her medications for about 2 months. She says that she was doing overall good enough and that depression would come and go. They however she has been feeling more down, tired of always being in pain. Patient explained contributory factors being chronic pain which says seems to have gotten worse recently (patient names almost every part of her body as painful: headaches, joints, stomach, legs, feet...each toe). Patient reports up until a week ago, she was living on her own in her own apartment but this past week she moved into a senior care, saying she needed more support. Over these past few days she became more depressed. Once in the emergency room she says she started to think about ending it... Taking a bunch of pills... Patient explains concretely if I were home I would have done it because I had access to the pills... Here I do not have access to the pills. She reports Hx of SI but has never actually tried to; says usually the feeling passes; reports extreme anxiety since childhood; seems to endorse depressive episodes. -denies AVH or paranoid ideations; she does not know why she is prescribed risperidone -denies drug or alcohol use Formulation/clinical reasoning: Endorses depression and anxiety; has been off her medications which is likely contributory as well as chronic pain though not sure the cause; she says nothing has ever help with her pain before however agrees to start and try gabapentin. Patient with blunted affect and concrete; will seek to rule out ASD. Need collateral Hospital course: 02/21 still feeling down; still thinking of suicide but hopeful not to do it agrees to increase prozac to 40mg; also agrees to increased Gabapentin 300mg TID has not had a BM yet; says chronically has trouble pooping and has been constipated for years -agrees to Mirrilax 02/22 Patient reports that she is still depressed and still feeling suicidal though she reports SI is waning. No bowel movement. No medication side effects and agrees to titration 02/23 says still depressed and still with some SI remaining; agrees to increasing buproprion -still constipated 02/24 says still depressed; still with some SI; talked about anxiety as well. pt says no change in chronic body pain with gabapentin; agrees to titrate 02/25 no change in presentation; still depressed, still w/ some SI. Tried to discuss etiology of depression which she seems to say was sudden and did not have anything to do w/ moving into senior care 02/[address] IMPRESSION:. No acute intracranial findings. 03/02 Patient had a tough weekend. There was some concern that she slurred her speech was confused or dizzy. Head CT negative. Today patient says she wants to that she is so sad.. And feels so unhappy. Patient is tearful and endorses SI. She can be hard to understand however when senior grant writer mentions this, she apologizes, slows down her speech and is understandable. She says she has pain everywhere from her head to her toes and everywhere in-between. She thinks maybe it was a little better last week and senior grant writer mentioned that her gabapentin had been significantly lowered over the weekend possibly out of concern for patient's dizziness. Patient says she has no formal diagnosis for pain. Dining Room Hostess discussed medication regimen with patient who agreed to discontinue Prozac, discontinue Wellbutrin, which have not seemed to help and instead start on Cymbalta which can help with both anxiety, depression as well as pain. Patient shuffling around and now reporting falls; senior grant writer inquired and she agreed she was not falling last week but says it is only change now due to the increase in pain. At this point, changes seem more due to behaviors rather than organic. Given that patient has a history of Parkinson's and for some reason a pain syndrome that seems undiagnosed, Neuro consult placed as well -will consider increasing gabapentin again -add cyclobenzaprine which she has been on in the past -reportedly patient has history of Parkinson's 03/03 Regarding SI, she says it is still remains; however, mood little better today; tolerating cymbalta 60mg and discussed med changes again. She said that Said due to her anxiety she has been a little snippy with people which she says she has talked to her therapist about Patient mentioned visual hallucinations; she explains to senior grant writer that says seeing like a painting on the wall, like people walking around... However with further inquiry, this only occurs when she is waking up from sleep and not otherwise. elementary school social worker discussed with brother who says that this sounds like behavioral episodes patient has had the past Regarding body pain, she says it is actually a little better. She agrees to retry Flexeril to see if that is helpful. Patient complained of dysuria to nurse and asked for UA but was specific and wanting to be straight cathed. Patient had a significant volume of urine removed and is not sure if this is due to urinary retention or if patient is intentionally avoiding urinating; patient told senior grant writer she has intermittent history of urinary retention.. She also has been complaining about constipation however has been refusing laxatives/stool softeners. Dining Room Hostess discussed this and patient says she has long history of constipation and is worry about taking medications that will cause copious diarrhea, which happened once before when she laxatives. She agreed however that constipation needs to be relieved and said she would take medications. UA pending: unremarkable (bladder scan q shift w/ strait cath for CC>500) 03/04 Patient reports to senior grant writer that her mood is a little better and today no SI. Patient also says that her pain is a little bit better today. She is not sure Flexeril helped but agrees to have it scheduled. Patient up walking around the unit today without assistance. Patient remains with urinary retention via bladder scans. Will get consult. Later in the day senior grant writer met with patient again who was feeling more distraught and now saying she is not better at all. Patient says she feels marginalized because she has a disability. Discussed chronic pain with patient and her brother who was also present; patient remained vague about this issue and says she has just learned to deal with it; she is agreeing to increasing gabapentin. Also agrees to clonazepam -will 1st add clonazepam 0.5 mg b.i.d.; she has been on in the past and her anxiety seems to be a major contributor to her experience of pain and her ability to walk freely on her own. -will consider increasing gabapentin as well 03/05 pt says little better but still has SI, though she says it remains less. Pain not alleviated by scheduled flexeril. Pt explained she has a long hx of emotional lability. Agrees Clonazepam lowers anxiety, though it makes her tired. At this time she feels it's a welcomed break from anxiety. Also agrees to increase Gabapentin again, since it seemed to be helping, even if it too makes her tired. -still w/ urinary retention; PA recs to increase bladder scan to q6h and cath for CC>350; will monitor and get Urology consult if persists 03/07- Continue plan Urology consult 03/08 mood is lousy...i've been miserable all my life.. pt says the pain is the same pt went to a couple groups but said she didn't get anything out of it. Talked about medications and pt says I think therapy is better than pills... despite lousy mood pt has given some thought about discharge...has showered, is now walking on her own and off 1:1, urinating on her own and not needing straight cath 03/09 Patient says I do not know when asked how she is doing which is somewhat of an improvement from yesterday. She remains out in the milieu, hanging around others though mostly keeping to herself. Walking fine, remains with no residual urine per bladder scan. Discussed aftercare and patient is amenable to day program -patient has improved somewhat but is still overall depressed; will give it another day or so. If she remains down will consider either increasing Cymbalta or retry and Wellbutrin 03/10 pt difficult with which to engage. On inquiry about mood she says i don't know.... She says SI is there a little and that it comes and goes but is fleeting. No change in pain; remains constipated. Does not notice Wellbutrin which is being re-tried. -that said, she remains out of her room, in the milue and though keeping to herself, is not isolating; walking around on her own well -will try once more to increase Gabapentin to address chronic pain; if not effective or not tolerated, may try lyrica 03/11 Patient again says I do not know to how she is feeling. Remains out of her room, attending groups but mostly keeping to herself. Agrees to titration of medications. Denies AVH 03/12 Wellbutrin was increased to 300; will see if this helps; if not will consider possible increase Cymbalta or try another category; will change clonazepam since though helps with anxiety seems to be making patient tired in the afternoon 03/13 Patient remains presenting depressed. Says her mood is lousy and affect downcast. Patient says she has a little SI and says that over the years it comes and goes and will flare at certain times. Discussed medication regimen and patient has never tried lithium but agrees to try it now since Wellbutrin has not seem to help much. -ECT? 03/14 Patient noticeably brighter today and more social, engaged, sitting and interacting with peers. She says her mood is ok which is an improvement. Patient told nurse that she was having trouble walking and needed assistance however nurse gently challenged patient having just witnessed her walking around the milieu without any trouble. Patient did not contest -Discussed risks/side effects of lithium and patient agrees to continue 03/15 Patient reports that today she is lousy though she overall remains more interactive. Patient agrees with increase of lithium. She asks if she could see a neurologist to see if she needs a brain scan and senior grant writer discuss this. Patient is brother shared that patient used to be much more independent, living on her own, driving, holding down a job; however this was over a decade ago. She ended up living with her mother and patient's brother thinks she just got use to being taken care of. He says she has always been depressed for most of her life and was pretty lonely, never really had friends. Never got diagnosed with ASD but there was discussion of it. She did graduate high school he thinks in regular classes. 03/16 Patient reports that she is doing all right... And says she is without any SI and no longer thinking at all about overdosing on medication. Discussed lithium and she agrees to increase and to see if it is effective. -not sure what to make of intermittent visual hallucinations; they occur at night seemingly when she is waking or falling asleep. 03/17 pt says she's alright and for first time agrees that she's doing overall a little better. Agrees to continue with Thebes. Says that sometimes she sees what resembles pictures on a movie screen...even during the daytime. It's fleeting; does not bother her -beginnings of lewy body dementia? no shuffling/parkinsonian gait. will likely refer to Neuro for outpt follow up Plan: CV Q 15 minute checks Increased to lithium ER 600 mg q.h.s.; senior grant writer reviewed risks/side effects of this medication and she agrees DC Wellbutrin XL has not helped Continue gabapentin 200 mg t.i.d. for chronic pain (reviewed risks/side-effects) Lowered Clonazepam 0.25 mg b.i.d. for anxiety; has been on in the past Swich to PRN Cyclobenzaprine 10 mg t.i.d.prn (with p.r.n.; patient has been on as high doses 20 mg) Continue Cymbalta 60 mg DC fluoxetine famotidine 20 mg b.i.d.; patient says she has chronic GERD risperidone 3 mg q.h.s. prazosin 1 mg q.h.s. Cogentin 0.5 mg b.i.d. Ordered H pylori antigen stool test (patient has refused to comply); patient says she has had intractable GERD for a long time; has never been tested for H pylori Regarding Thebes, Risks, side-effects and benefits reviewed with pt, including, but not limited to, damage to kidneys and thyroid; pt was educated on symptoms of lithium toxicity (also discussed, including but not limited to gait, tremor, confusion) and the need to stay away from OTC NSAIDs (specifics reviewed) aside from Tylenol. Patient educated on: diagnosis and medication risk/benefits Informed Consent: understands and further education needed Reason for continued inpatient stay Substantial Risk for: stable for discharge, rapid decompensation and med/psych decompensation Time Spent With Patient Time: Total time managing care of this patient today ____ minutes.
[2025-03-17 20:00] VITALS: BP 109/73; PULSE 110; RESP 16; TEMP 36.6; O2SAT 97
[2025-03-17] MEDS: Lithium Carbonate ER 300 MG TABLET.ER 600 MG PO (22:33)
[2025-03-17 22:34] VITALS: BP 98/58
[2025-03-17] MEDS: Prazosin HCL 1 MG CAPSULE PO (22:34)
[2025-03-17] MEDS: risperiDONE Oral Sol 1 MG/ML SOLUTION 3 MG PO (22:37)
[2025-03-17] MEDS: Sennosides 8.6 MG TABLET 17.2 MG PO (22:37)
[2025-03-18] MEDS: Omeprazole 40 MG CAPSULE.DR PO ×2 (06:21→15:05)
[2025-03-18 08:00] VITALS: BP 97/56; PULSE 90; RESP 18; TEMP 36.9; O2SAT 93
[2025-03-18] MEDS: Atorvastatin Calcium 10 MG TABLET PO (09:03)
[2025-03-18] MEDS: Benztropine Mesylate 0.5 MG TABLET PO ×2 (09:03→20:44)
[2025-03-18] MEDS: Loratadine 10 MG TABLET PO (09:03)
[2025-03-18] MEDS: DULoxetine HCl 60 MG CAPSULE.DR PO (09:04)
[2025-03-18] MEDS: Famotidine 20 MG TABLET PO ×2 (09:04→20:45)
[2025-03-18] MEDS: Gabapentin 100 MG CAPSULE 200 MG PO ×3 (09:04→20:44)
[2025-03-18] MEDS: clonazePAM 0.5 MG TABLET 0.25 MG PO ×2 (09:05→15:05)
[2025-03-18] MEDS: Fluticasone Propionate Nasal 16 GM SPRAY 2 SPRAY NOSTRIL-B (09:05)
[2025-03-18 09:41] VITALS: BMI 25.8
--- NOTE | 2025-03-18 11:21 | HO.PSYCHPN ---
Subjective Subjective Date of Service: 03/18/25 Reason For Visit: Depression Interim History: Active on unit, keeping to self. attending groups. pt reports feeling depressed ; she reports suicidal ideation comes and goes . denies HI/AH. Pt reports visual hallucinations, reporting they are nothing violent ; she did not go into further detail. States she did not have nightmares last night; per nursing, slept 8 hours last night. Continue current tx plan. Medication Compliance: Yes Side effects from medications: No Attending Groups: Yes Mental Status Exam Mental Status Exam Patient Appearance: Appropriate Patient Orientation: Person, Place, Time and Situation Level of Consciousness: Awake Patient Behavior: Appropriate, Cooperative and Good Eye Contact Mood Description: Depressed Affect Description: Blunted Ability to Follow Directions: Good Speech Pattern: Mumbled Hallucinations: Visual Delusions: Not Present Thought Process: Intact Thought Content: positive for Intact Diagnostics Vital Signs (24Hr): Vital Signs - 24 hr 03/17/25 20:00 03/17/25 22:34 03/18/25 08:00 Temperature 97.8 F 98.4 F Pulse Rate 110 H 90 Respiratory Rate 16 18 Blood Pressure 109/73 98/58 L 97/56 L Pulse Oximetry 97 93 Oxygen Delivery Method Room Air Room Air BMI result Body Mass Index 25.8 Labs 03/06/25 12:37 03/06/25 12:37 Imaging Radiology Impressions: ITS Impressions Chest X-Ray 02/18/25 09:58 IMPRESSION: Mild interstitial edema and bilateral pleural effusions, small to moderate volume, similar to slightly worsened since prior exam. Electronically signed by: Hamlet Stephens MD 02/18/2025 10:42 AM EDT Medications Medications Current Medications Acetaminophen (Acetaminophen 325 Mg Tablet) 650 mg PO Q6H PRN PRN Reason: Headache/Pain, Scale 1-10 Last Admin: 03/04/25 12:50 Dose: 325 mg Al Hydroxide/Mg Hydroxide (Magnesium Hydrox/Alum Hydrox 30 Ml Oral.Susp) 30 ml PO Q6H PRN PRN Reason: Heartburn/Nausea Atorvastatin Calcium (Atorvastatin Calcium 10 Mg Tablet) 10 mg PO DAILY [facility] Last Admin: 03/18/25 09:03 Dose: 10 mg Benztropine Mesylate (Benztropine Mesylate 0.5 Mg Tablet) 0.5 mg PO BID [facility] Last Admin: 03/18/25 09:03 Dose: 0.5 mg Clonazepam (Clonazepam 0.5 Mg Tablet) 0.25 mg PO BID@0900,1400 [facility] Last Admin: 03/18/25 09:05 Dose: 0.25 mg Cyclobenzaprine HCl (Cyclobenzaprine Hcl 10 Mg Tablet) 10 mg PO TID PRN PRN Reason: Muscle Spasm/aches Last Admin: 03/10/25 21:12 Dose: 10 mg Docusate Sodium (Docusate Sodium 100 Mg Capsule) 100 mg PO DAILY PRN PRN Reason: constipation Last Admin: 03/01/25 09:11 Dose: 100 mg Duloxetine HCl (Duloxetine Hcl 60 Mg Capsule.Dr) 60 mg PO DAILY [facility] Last Admin: 03/18/25 09:04 Dose: 60 mg Famotidine (Famotidine 20 Mg Tablet) 20 mg PO BID [facility] Last Admin: 03/18/25 09:04 Dose: 20 mg Fluticasone Propionate (Fluticasone Propionate Nasal 16 Gm [place]) 2 spray NOSTRIL-B DAILY [facility] Last Admin: 03/18/25 09:05 Dose: 2 spray Gabapentin (Gabapentin 100 Mg Capsule) 200 mg PO TID [facility] Last Admin: 03/18/25 09:04 Dose: 200 mg Hydrocortisone (Hydrocortisone 2.5 % Rectal Cr 30 Gm Tube) 1 appl [place] Q6H PRN PRN Reason: Hemorrhoids Hydroxyzine HCl (Hydroxyzine Hcl 25 Mg Tablet) 25 mg PO Q6H PRN PRN Reason: mild anxiety Last Admin: 03/15/25 21:03 Dose: 25 mg [place] Carbonate ([place] Carbonate Er 300 Mg Tablet.Er) 600 mg PO BEDTIME [facility] Last Admin: 03/17/25 22:33 Dose: 600 mg Loratadine (Loratadine 10 Mg Tablet) 10 mg PO DAILY [facility] Last Admin: 03/18/25 09:03 Dose: 10 mg Magnesium Hydroxide (Milk Of Magnesia 30 Ml Oral.Susp) 30 ml PO DAILY PRN PRN Reason: Constipation Last Admin: 03/01/25 17:51 Dose: 30 ml Naproxen (Naproxen 500 Mg Tablet) 500 mg PO BID PRN PRN Reason: Pain (Scale Score 1-3) Last Admin: 03/01/25 09:11 Dose: 500 mg Nicotine Polacrilex (Nicotine Polacrilex 2 Mg Gum) 4 mg BUCCAL Q2H PRN PRN Reason: Nicotine Cravings Omeprazole (Omeprazole 40 Mg Capsule.Dr) 40 mg PO BID@0630,1630 [facility] Last Admin: 03/18/25 06:21 Dose: 40 mg Ondansetron HCl (Ondansetron Odt 4 Mg Tab.Rapdis) 4 mg TRANSLINGU Q8H PRN PRN Reason: Nausea and Vomiting Last Admin: 03/06/25 12:03 Dose: 4 mg Polyethylene Glycol (Polyethylene Glycol 3350 17 Gm Powd.Pack) 17 gm PO DAILY PRN PRN Reason: Constipation Last Admin: 03/01/25 09:56 Dose: 17 gm Polyethylene Glycol (Polyethylene Glycol 3350 17 Gm Powd.Pack) 17 gm PO DAILY [facility] Last Admin: 03/18/25 09:26 Dose: Not Given Prazosin HCl (Prazosin Hcl 1 Mg Capsule) 1 mg PO BEDTIME [facility]; Protocol Last Admin: 03/17/25 22:34 Dose: 1 mg Risperidone (Risperidone Oral [place] 1 Mg/Ml Solution) 3 mg PO BEDTIME [facility] Last Admin: 03/17/25 22:37 Dose: 3 mg Senna (Sennosides 8.6 Mg Tablet) 17.2 mg PO BEDTIME [facility] Last Admin: 03/17/25 22:37 Dose: 17.2 mg Allergies Allergies Allergy/AdvReac Type Severity Reaction Status Date / Time No Known Allergies Allergy Verified 02/18/25 07:24 [No Known Allergies*] Assessment & Plan Assessment & Plan (1) MDD (major depressive disorder), recurrent severe, without psychosis: Status: Acute Code(s): F33.2 - Major depressive disorder, recurrent severe without psychotic features (2) Anxiety: Status: Acute Code(s): F41.9 - Anxiety disorder, unspecified Plan 54 year-old female with PMHx of Parkinson's with dyskinesia, metabolic encephalopathy, constipation, ulcerative colitis, GERD, IBS, 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 Patient called 911 saying she was short of breath but here in the ED she talked about wanting to . Patient reports that about a month ago, she stopped going to her therapist due to lack of insurance; she says she does not take medications regularly, runs out of them and does not get refills and has been off of her medications for about 2 months. She says that she was doing overall good enough and that depression would come and go. They however she has been feeling more down, tired of always being in pain. Patient explained contributory factors being chronic pain which says seems to have gotten worse recently (patient names almost every part of her body as painful: headaches, joints, stomach, legs, feet...each toe). Patient reports up until a week ago, she was living on her own in her own apartment but this past week she moved into a [facility], saying she needed more support. Over these past few days she became more depressed. Once in the emergency room she says she started to think about ending it... Taking a bunch of pills... Patient explains concretely if I were home I would have done it because I had access to the pills... Here I do not have access to the pills. She reports Hx of SI but has never actually tried to; says usually the feeling passes; reports extreme anxiety since childhood; seems to endorse depressive episodes. -denies AVH or paranoid ideations; she does not know why she is prescribed risperidone -denies drug or alcohol use Formulation/clinical reasoning: Endorses depression and anxiety; has been off her medications which is likely contributory as well as chronic pain though not sure the cause; she says nothing has ever help with her pain before however agrees to start and try gabapentin. Patient with blunted affect and concrete; will seek to rule out ASD. Need collateral Hospital course: 02/21 still feeling down; still thinking of suicide but hopeful not to do it agrees to increase prozac to 40mg; also agrees to increased Gabapentin 300mg TID has not had a BM yet; says chronically has trouble pooping and has been constipated for years -agrees to Mirrilax 02/22 Patient reports that she is still depressed and still feeling suicidal though she reports SI is waning. No bowel movement. No medication side effects and agrees to titration 02/23 says still depressed and still with some SI remaining; agrees to increasing buproprion -still constipated 02/24 says still depressed; still with some SI; talked about anxiety as well. pt says no change in chronic body pain with gabapentin; agrees to titrate 02/25 no change in presentation; still depressed, still w/ some SI. Tried to discuss etiology of depression which she seems to say was sudden and did not have anything to do w/ moving into [facility] 02/[address] IMPRESSION:. No acute intracranial findings. 03/02 Patient had a tough weekend. There was some concern that she slurred her speech was confused or dizzy. Head CT negative. Today patient says she wants to that she is so sad.. And feels so unhappy. Patient is tearful and endorses SI. She can be hard to understand however when racebook writer mentions this, she apologizes, slows down her speech and is understandable. She says she has pain everywhere from her head to her toes and everywhere in-between. She thinks maybe it was a little better last week and racebook writer mentioned that her gabapentin had been significantly lowered over the weekend possibly out of concern for patient's dizziness. Patient says she has no formal diagnosis for pain. Electrician discussed medication regimen with patient who agreed to discontinue Prozac, discontinue Wellbutrin, which have not seemed to help and instead start on Cymbalta which can help with both anxiety, depression as well as pain. Patient shuffling around and now reporting falls; racebook writer inquired and she agreed she was not falling last week but says it is only change now due to the increase in pain. At this point, changes seem more due to behaviors rather than organic. Given that patient has a history of Parkinson's and for some reason a pain syndrome that seems undiagnosed, Neuro consult placed as well -will consider increasing gabapentin again -add cyclobenzaprine which she has been on in the past -reportedly patient has history of Parkinson's 03/03 Regarding SI, she says it is still remains; however, mood little better today; tolerating cymbalta 60mg and discussed med changes again. She said that Said due to her anxiety she has been a little snippy with people which she says she has talked to her therapist about Patient mentioned visual hallucinations; she explains to racebook writer that says seeing like a painting on the wall, like people walking around... However with further inquiry, this only occurs when she is waking up from sleep and not otherwise. material worker discussed with brother who says that this sounds like behavioral episodes patient has had the past Regarding body pain, she says it is actually a little better. She agrees to retry Flexeril to see if that is helpful. Patient complained of dysuria to nurse and asked for UA but was specific and wanting to be straight cathed. Patient had a significant volume of urine removed and is not sure if this is due to urinary retention or if patient is intentionally avoiding urinating; patient told racebook writer she has intermittent history of urinary retention.. She also has been complaining about constipation however has been refusing laxatives/stool softeners. Electrician discussed this and patient says she has long history of constipation and is worry about taking medications that will cause copious diarrhea, which happened once before when she laxatives. She agreed however that constipation needs to be relieved and said she would take medications. UA pending: unremarkable (bladder scan q shift w/ strait cath for CC>500) 03/04 Patient reports to racebook writer that her mood is a little better and today no SI. Patient also says that her pain is a little bit better today. She is not sure Flexeril helped but agrees to have it scheduled. Patient up walking around the unit today without assistance. Patient remains with urinary retention via bladder scans. Will get consult. Later in the day racebook writer met with patient again who was feeling more distraught and now saying she is not better at all. Patient says she feels marginalized because she has a disability. Discussed chronic pain with patient and her brother who was also present; patient remained vague about this issue and says she has just learned to deal with it; she is agreeing to increasing gabapentin. Also agrees to clonazepam -will 1st add clonazepam 0.5 mg b.i.d.; she has been on in the past and her anxiety seems to be a major contributor to her experience of pain and her ability to walk freely on her own. -will consider increasing gabapentin as well 03/05 pt says little better but still has SI, though she says it remains less. Pain not alleviated by scheduled flexeril. Pt explained she has a long hx of emotional lability. Agrees Clonazepam lowers anxiety, though it makes her tired. At this time she feels it's a welcomed break from anxiety. Also agrees to increase Gabapentin again, since it seemed to be helping, even if it too makes her tired. -still w/ urinary retention; PA recs to increase bladder scan to q6h and cath for CC>350; will monitor and get Urology consult if persists 03/07- Continue plan Urology consult 03/08 mood is lousy...i've been miserable all my life.. pt says the pain is the same pt went to a couple groups but said she didn't get anything out of it. Talked about medications and pt says I think therapy is better than pills... despite lousy mood pt has given some thought about discharge...has showered, is now walking on her own and off 1:1, urinating on her own and not needing straight cath 03/09 Patient says I do not know when asked how she is doing which is somewhat of an improvement from yesterday. She remains out in the milieu, hanging around others though mostly keeping to herself. Walking fine, remains with no residual urine per bladder scan. Discussed aftercare and patient is amenable to day program -patient has improved somewhat but is still overall depressed; will give it another day or so. If she remains down will consider either increasing Cymbalta or retry and Wellbutrin 03/10 pt difficult with which to engage. On inquiry about mood she says i don't know.... She says SI is there a little and that it comes and goes but is fleeting. No change in pain; remains constipated. Does not notice Wellbutrin which is being re-tried. -that said, she remains out of her room, in the milue and though keeping to herself, is not isolating; walking around on her own well -will try once more to increase Gabapentin to address chronic pain; if not effective or not tolerated, may try lyrica 03/11 Patient again says I do not know to how she is feeling. Remains out of her room, attending groups but mostly keeping to herself. Agrees to titration of medications. Denies AVH 03/12 Wellbutrin was increased to 300; will see if this helps; if not will consider possible increase Cymbalta or try another category; will change clonazepam since though helps with anxiety seems to be making patient tired in the afternoon 03/13 Patient remains presenting depressed. Says her mood is lousy and affect downcast. Patient says she has a little SI and says that over the years it comes and goes and will flare at certain times. Discussed medication regimen and patient has never tried lithium but agrees to try it now since Wellbutrin has not seem to help much. -ECT? 03/14 Patient noticeably brighter today and more social, engaged, sitting and interacting with peers. She says her mood is ok which is an improvement. Patient told nurse that she was having trouble walking and needed assistance however nurse gently challenged patient having just witnessed her walking around the milieu without any trouble. Patient did not contest -Discussed risks/side effects of lithium and patient agrees to continue 03/15 Patient reports that today she is lousy though she overall remains more interactive. Patient agrees with increase of lithium. She asks if she could see a neurologist to see if she needs a brain scan and racebook writer discuss this. Patient is brother shared that patient used to be much more independent, living on her own, driving, holding down a job; however this was over a decade ago. She ended up living with her mother and patient's brother thinks she just got use to being taken care of. He says she has always been depressed for most of her life and was pretty lonely, never really had friends. Never got diagnosed with ASD but there was discussion of it. She did graduate high school he thinks in regular classes. 03/16 Patient reports that she is doing all right... And says she is without any SI and no longer thinking at all about overdosing on medication. Discussed lithium and she agrees to increase and to see if it is effective. -not sure what to make of intermittent visual hallucinations; they occur at night seemingly when she is waking or falling asleep. 03/18: Active on unit, keeping to self. attending groups. pt reports feeling depressed ; she reports suicidal ideation comes and goes . denies HI/AH. Pt reports visual hallucinations, reporting they are nothing violent ; she did not go into further detail. States she did not have nightmares last night; per nursing, slept 8 hours last night. Continue current tx plan. Plan: CV Q 15 minute checks Increased to lithium ER 600 mg q.h.s.; racebook writer reviewed risks/side effects of this medication and she agrees DC Wellbutrin XL has not helped Continue gabapentin 200 mg t.i.d. for chronic pain (reviewed risks/side-effects) Lowered Clonazepam 0.25 mg b.i.d. for anxiety; has been on in the past Swich to PRN Cyclobenzaprine 10 mg t.i.d.prn (with p.r.n.; patient has been on as high doses 20 mg) Continue Cymbalta 60 mg DC fluoxetine famotidine 20 mg b.i.d.; patient says she has chronic GERD risperidone 3 mg q.h.s. prazosin 1 mg q.h.s. Cogentin 0.5 mg b.i.d. Ordered H pylori antigen stool test (patient has refused to comply); patient says she has had intractable GERD for a long time; has never been tested for H pylori Regarding [place], Risks, side-effects and benefits reviewed with pt, including, but not limited to, damage to kidneys and thyroid; pt was educated on symptoms of lithium toxicity (also discussed, including but not limited to gait, tremor, confusion) and the need to stay away from OTC NSAIDs (specifics reviewed) aside from Tylenol. Patient educated on: diagnosis and medication risk/benefits Reason for continued inpatient stay Substantial Risk for: med/psych decompensation Time Spent With Patient Time: Total time managing care of this patient today _20___ minutes.
[2025-03-18 20:00] VITALS: BP 106/58; PULSE 107; RESP 16; TEMP 36.3; O2SAT 96
[2025-03-18] MEDS: risperiDONE Oral Sol 1 MG/ML SOLUTION 3 MG PO (20:43)
[2025-03-18 20:44] VITALS: BP 106/58
[2025-03-18] MEDS: Prazosin HCL 1 MG CAPSULE PO (20:44)
[2025-03-18] MEDS: Lithium Carbonate ER 300 MG TABLET.ER 600 MG PO (20:44)
[2025-03-18] MEDS: Sennosides 8.6 MG TABLET 17.2 MG PO (20:44)
[2025-03-18] MEDS: Cyclobenzaprine HCl 10 MG TABLET PO (20:45)
[2025-03-19] MEDS: Omeprazole 40 MG CAPSULE.DR PO ×2 (06:17→15:30)
[2025-03-19 08:00] VITALS: BP 118/66; PULSE 118; RESP 20; TEMP 37.3; O2SAT 98
[2025-03-19] MEDS: Atorvastatin Calcium 10 MG TABLET PO (08:07)
[2025-03-19] MEDS: Benztropine Mesylate 0.5 MG TABLET PO ×2 (08:07→20:59)
[2025-03-19] MEDS: Famotidine 20 MG TABLET PO ×2 (08:08→20:59)
[2025-03-19] MEDS: DULoxetine HCl 60 MG CAPSULE.DR PO (08:08)
[2025-03-19] MEDS: Loratadine 10 MG TABLET PO (08:08)
[2025-03-19] MEDS: Gabapentin 100 MG CAPSULE 200 MG PO ×3 (08:08→21:00)
[2025-03-19] MEDS: Fluticasone Propionate Nasal 16 GM SPRAY 2 SPRAY NOSTRIL-B (08:10)
[2025-03-19] MEDS: clonazePAM 0.5 MG TABLET 0.25 MG PO ×2 (08:10→15:29)
[2025-03-19] MEDS: polyethylene glycoL 3350 17 GM POWD.PACK PO (08:11)
[2025-03-19 08:47] VITALS: PULSE 125; TEMP 37.3
[2025-03-19] MEDS: NaPROXEN 500 MG TABLET PO ×2 (08:49→21:07)
[2025-03-19] MEDS: hydrOXYzine HCL 25 MG TABLET PO (08:50)
[2025-03-19 11:05] VITALS: PULSE 117
[2025-03-19 20:00] VITALS: BP 105/56; PULSE 100; TEMP 36.8; O2SAT 97
[2025-03-19] MEDS: Prazosin HCL 1 MG CAPSULE PO (20:58)
[2025-03-19] MEDS: Lithium Carbonate ER 300 MG TABLET.ER 600 MG PO (20:58)
[2025-03-19] MEDS: Sennosides 8.6 MG TABLET 17.2 MG PO (20:59)
[2025-03-19] MEDS: risperiDONE Oral Sol 1 MG/ML SOLUTION 3 MG PO (21:02)
[2025-03-19] MEDS: Cyclobenzaprine HCl 10 MG TABLET PO (21:07)
[2025-03-20] MEDS: Omeprazole 40 MG CAPSULE.DR PO ×2 (07:21→16:35)
[2025-03-20 08:00] VITALS: BP 156/89; PULSE 110; RESP 18; TEMP 37; O2SAT 96
[2025-03-20 08:30] VITALS: BP 113/56
[2025-03-20] MEDS: Benztropine Mesylate 0.5 MG TABLET PO ×2 (08:33→20:06)
[2025-03-20] MEDS: clonazePAM 0.5 MG TABLET 0.25 MG PO ×2 (08:33→13:17)
[2025-03-20] MEDS: Loratadine 10 MG TABLET PO (08:34)
[2025-03-20] MEDS: Gabapentin 100 MG CAPSULE 200 MG PO ×3 (08:34→20:07)
[2025-03-20] MEDS: DULoxetine HCl 60 MG CAPSULE.DR PO (08:34)
[2025-03-20] MEDS: Famotidine 20 MG TABLET PO ×2 (08:34→20:07)
[2025-03-20] MEDS: Atorvastatin Calcium 10 MG TABLET PO (08:34)
[2025-03-20] MEDS: Fluticasone Propionate Nasal 16 GM SPRAY 2 SPRAY NOSTRIL-B (08:35)
[2025-03-20] MEDS: polyethylene glycoL 3350 17 GM POWD.PACK PO (08:35)
--- NOTE | 2025-03-20 09:43 | HO.PSYCHPN ---
Subjective Subjective Date of Service: 03/20/25 Reason For Visit: Depression Interim History: Active on unit, keeping to self. Patient reports she is having visual illusions/hallucinations like a movie scene. Denies SI. Says she is in pain and it gets worse with the cold. Patient denies HI/AH. Review of Systems Review of Systems urinary retention Yes all other systems are reviewed and are negative Mental Status Exam Mental Status Exam Narrative: Pt is alert and oriented; behavior is more calm, more social and is more engaged with others, on her own walking around; dressed in hospital pants, casual top with adequate hygiene; glasses, appears older than chronological age; mood is described as alright and affect remains overall brighter; eye contact a little avoidant (baseline); Speech is mumbled (which is baseline) but she can slow down and articulate; normal volume; some psychomotor retardation present; thought process is goal directed, concrete; Thought content is on dealing with pain and depression; no delusional ideations expressed; no SI; no HI; patient reports intermittent VH that does not bother her; Patients insight and judgment adequate and at baseline Patient Appearance: Appropriate Patient Orientation: Person, Place, Time and Situation Level of Consciousness: Awake Patient Behavior: Appropriate, Cooperative and Good Eye Contact Mood Description: Depressed Affect Description: Blunted Patient Cognition Impaired: No Ability to Follow Directions: Good Speech Pattern: Mumbled Memory Description: Episodic Impaired Diagnostics Vital Signs (24Hr): Vital Signs - 24 hr 03/19/25 11:05 03/19/25 20:00 03/20/25 08:00 Temperature 98.3 F 98.6 F Pulse Rate 117 H 100 110 H Respiratory Rate 18 Blood Pressure 105/56 L 156/89 H Pulse Oximetry 97 96 Oxygen Delivery Method Room Air Room Air BMI result Body Mass Index 25.8 Labs 03/06/25 12:37 03/06/25 12:37 Imaging Radiology Impressions: ITS Impressions Chest X-Ray 02/18/25 09:58 IMPRESSION: Mild interstitial edema and bilateral pleural effusions, small to moderate volume, similar to slightly worsened since prior exam. Electronically signed by: Hamlet Stephens MD 02/18/2025 10:42 AM EDT Medications Medications Current Medications Acetaminophen (Acetaminophen 325 Mg Tablet) 650 mg PO Q6H PRN PRN Reason: Headache/Pain, Scale 1-10 Last Admin: 03/04/25 12:50 Dose: 325 mg Al Hydroxide/Mg Hydroxide (Magnesium Hydrox/Alum Hydrox 30 Ml Oral.Susp) 30 ml PO Q6H PRN PRN Reason: Heartburn/Nausea Atorvastatin Calcium (Atorvastatin Calcium 10 Mg Tablet) 10 mg PO DAILY [facility] Last Admin: 03/20/25 08:34 Dose: 10 mg Benztropine Mesylate (Benztropine Mesylate 0.5 Mg Tablet) 0.5 mg PO BID [facility] Last Admin: 03/20/25 08:33 Dose: 0.5 mg Clonazepam (Clonazepam 0.5 Mg Tablet) 0.25 mg PO BID@0900,1400 [facility] Last Admin: 03/20/25 08:33 Dose: 0.25 mg Cyclobenzaprine HCl (Cyclobenzaprine Hcl 10 Mg Tablet) 10 mg PO TID PRN PRN Reason: Muscle Spasm/aches Last Admin: 03/19/25 21:07 Dose: 10 mg Docusate Sodium (Docusate Sodium 100 Mg Capsule) 100 mg PO DAILY PRN PRN Reason: constipation Last Admin: 03/01/25 09:11 Dose: 100 mg Duloxetine HCl (Duloxetine Hcl 60 Mg Capsule.Dr) 60 mg PO DAILY [facility] Last Admin: 03/20/25 08:34 Dose: 60 mg Famotidine (Famotidine 20 Mg Tablet) 20 mg PO BID [facility] Last Admin: 03/20/25 08:34 Dose: 20 mg Fluticasone Propionate (Fluticasone Propionate Nasal 16 Gm Harriet) 2 spray NOSTRIL-B DAILY [facility] Last Admin: 03/20/25 08:35 Dose: 2 spray Gabapentin (Gabapentin 100 Mg Capsule) 200 mg PO TID [facility] Last Admin: 03/20/25 08:34 Dose: 200 mg Hydrocortisone (Hydrocortisone 2.5 % Rectal Cr 30 Gm Tube) 1 appl TN Q6H PRN PRN Reason: Hemorrhoids Hydroxyzine HCl (Hydroxyzine Hcl 25 Mg Tablet) 25 mg PO Q6H PRN PRN Reason: mild anxiety Last Admin: 03/19/25 08:50 Dose: 25 mg [place] Carbonate ([place] Carbonate Er 300 Mg Tablet.Er) 600 mg PO BEDTIME [facility] Last Admin: 03/19/25 20:58 Dose: 600 mg Loratadine (Loratadine 10 Mg Tablet) 10 mg PO DAILY [facility] Last Admin: 03/20/25 08:34 Dose: 10 mg Magnesium Hydroxide (Milk Of Magnesia 30 Ml Oral.Susp) 30 ml PO DAILY PRN PRN Reason: Constipation Last Admin: 03/01/25 17:51 Dose: 30 ml Naproxen (Naproxen 500 Mg Tablet) 500 mg PO BID PRN PRN Reason: Pain (Scale Score 1-3) Last Admin: 03/19/25 21:07 Dose: 500 mg Nicotine Polacrilex (Nicotine Polacrilex 2 Mg Gum) 4 mg BUCCAL Q2H PRN PRN Reason: Nicotine Cravings Omeprazole (Omeprazole 40 Mg Capsule.Dr) 40 mg PO BID@0630,1630 [facility] Last Admin: 03/20/25 07:21 Dose: 40 mg Ondansetron HCl (Ondansetron Odt 4 Mg Tab.Rapdis) 4 mg TRANSLINGU Q8H PRN PRN Reason: Nausea and Vomiting Last Admin: 03/06/25 12:03 Dose: 4 mg Polyethylene Glycol (Polyethylene Glycol 3350 17 Gm Powd.Pack) 17 gm PO DAILY PRN PRN Reason: Constipation Last Admin: 03/01/25 09:56 Dose: 17 gm Polyethylene Glycol (Polyethylene Glycol 3350 17 Gm Powd.Pack) 17 gm PO DAILY [facility] Last Admin: 03/20/25 08:35 Dose: 17 gm Prazosin HCl (Prazosin Hcl 1 Mg Capsule) 1 mg PO BEDTIME [facility]; Protocol Last Admin: 03/19/25 20:58 Dose: 1 mg Risperidone (Risperidone Oral Lindsay 1 Mg/Ml Solution) 3 mg PO BEDTIME [facility] Last Admin: 03/19/25 21:02 Dose: 3 mg Senna (Sennosides 8.6 Mg Tablet) 17.2 mg PO BEDTIME [facility] Last Admin: 03/19/25 20:59 Dose: 17.2 mg Allergies Allergies Allergy/AdvReac Type Severity Reaction Status Date / Time No Known Allergies Allergy Verified 02/18/25 07:24 [No Known Allergies*] Assessment & Plan Assessment & Plan (1) MDD (major depressive disorder), recurrent severe, without psychosis: Status: Acute Code(s): F33.2 - Major depressive disorder, recurrent severe without psychotic features (2) Anxiety: Status: Acute Code(s): F41.9 - Anxiety disorder, unspecified Plan 54 year-old female with PMHx of Parkinson's with dyskinesia, metabolic encephalopathy, constipation, ulcerative colitis, GERD, IBS, 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 Patient called 911 saying she was short of breath but here in the ED she talked about wanting to . Patient reports that about a month ago, she stopped going to her therapist due to lack of insurance; she says she does not take medications regularly, runs out of them and does not get refills and has been off of her medications for about 2 months. She says that she was doing overall good enough and that depression would come and go. They however she has been feeling more down, tired of always being in pain. Patient explained contributory factors being chronic pain which says seems to have gotten worse recently (patient names almost every part of her body as painful: headaches, joints, stomach, legs, feet...each toe). Patient reports up until a week ago, she was living on her own in her own apartment but this past week she moved into a skilled nursing, saying she needed more support. Over these past few days she became more depressed. Once in the emergency room she says she started to think about ending it... Taking a bunch of pills... Patient explains concretely if I were home I would have done it because I had access to the pills... Here I do not have access to the pills. She reports Hx of SI but has never actually tried to; says usually the feeling passes; reports extreme anxiety since childhood; seems to endorse depressive episodes. -denies AVH or paranoid ideations; she does not know why she is prescribed risperidone -denies drug or alcohol use Formulation/clinical reasoning: Endorses depression and anxiety; has been off her medications which is likely contributory as well as chronic pain though not sure the cause; she says nothing has ever help with her pain before however agrees to start and try gabapentin. Patient with blunted affect and concrete; will seek to rule out ASD. Need collateral Hospital course: 02/21 still feeling down; still thinking of suicide but hopeful not to do it agrees to increase prozac to 40mg; also agrees to increased Gabapentin 300mg TID has not had a BM yet; says chronically has trouble pooping and has been constipated for years -agrees to Mirrilax 02/22 Patient reports that she is still depressed and still feeling suicidal though she reports SI is waning. No bowel movement. No medication side effects and agrees to titration 02/23 says still depressed and still with some SI remaining; agrees to increasing buproprion -still constipated 02/24 says still depressed; still with some SI; talked about anxiety as well. pt says no change in chronic body pain with gabapentin; agrees to titrate 02/25 no change in presentation; still depressed, still w/ some SI. Tried to discuss etiology of depression which she seems to say was sudden and did not have anything to do w/ moving into skilled nursing 02/[address] IMPRESSION:. No acute intracranial findings. 03/02 Patient had a tough weekend. There was some concern that she slurred her speech was confused or dizzy. Head CT negative. Today patient says she wants to that she is so sad.. And feels so unhappy. Patient is tearful and endorses SI. She can be hard to understand however when abstract writer mentions this, she apologizes, slows down her speech and is understandable. She says she has pain everywhere from her head to her toes and everywhere in-between. She thinks maybe it was a little better last week and abstract writer mentioned that her gabapentin had been significantly lowered over the weekend possibly out of concern for patient's dizziness. Patient says she has no formal diagnosis for pain. [employer] discussed medication regimen with patient who agreed to discontinue Prozac, discontinue Wellbutrin, which have not seemed to help and instead start on Cymbalta which can help with both anxiety, depression as well as pain. Patient shuffling around and now reporting falls; abstract writer inquired and she agreed she was not falling last week but says it is only change now due to the increase in pain. At this point, changes seem more due to behaviors rather than organic. Given that patient has a history of Parkinson's and for some reason a pain syndrome that seems undiagnosed, Neuro consult placed as well -will consider increasing gabapentin again -add cyclobenzaprine which she has been on in the past -reportedly patient has history of Parkinson's 03/03 Regarding SI, she says it is still remains; however, mood little better today; tolerating cymbalta 60mg and discussed med changes again. She said that Said due to her anxiety she has been a little snippy with people which she says she has talked to her therapist about Patient mentioned visual hallucinations; she explains to abstract writer that says seeing like a painting on the wall, like people walking around... However with further inquiry, this only occurs when she is waking up from sleep and not otherwise. community mental health worker discussed with brother who says that this sounds like behavioral episodes patient has had the past Regarding body pain, she says it is actually a little better. She agrees to retry Flexeril to see if that is helpful. Patient complained of dysuria to nurse and asked for UA but was specific and wanting to be straight cathed. Patient had a significant volume of urine removed and is not sure if this is due to urinary retention or if patient is intentionally avoiding urinating; patient told abstract writer she has intermittent history of urinary retention.. She also has been complaining about constipation however has been refusing laxatives/stool softeners. 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 She agreed however that constipation needs to be relieved and said she would take medications. UA pending: unremarkable (bladder scan q shift w/ strait cath for CC>500) 03/04 Patient reports to abstract writer that her mood is a little better and today no SI. Patient also says that her pain is a little bit better today. She is not sure Flexeril helped but agrees to have it scheduled. Patient up walking around the unit today without assistance. Patient remains with urinary retention via bladder scans. Will get consult. Later in the day abstract writer met with patient again who was feeling more distraught and now saying she is not better at all. Patient says she feels marginalized because she has a disability. Discussed chronic pain with patient and her brother who was also present; patient remained vague about this issue and says she has just learned to deal with it; she is agreeing to increasing gabapentin. Also agrees to clonazepam -will 1st add clonazepam 0.5 mg b.i.d.; she has been on in the past and her anxiety seems to be a major contributor to her experience of pain and her ability to walk freely on her own. -will consider increasing gabapentin as well 03/05 pt says little better but still has SI, though she says it remains less. Pain not alleviated by scheduled flexeril. Pt explained she has a long hx of emotional lability. Agrees Clonazepam lowers anxiety, though it makes her tired. At this time she feels it's a welcomed break from anxiety. Also agrees to increase Gabapentin again, since it seemed to be helping, even if it too makes her tired. -still w/ urinary retention; PA recs to increase bladder scan to q6h and cath for CC>350; will monitor and get Urology consult if persists 03/07- Continue plan Urology consult 03/08 mood is lousy...i've been miserable all my life.. pt says the pain is the same pt went to a couple groups but said she didn't get anything out of it. Talked about medications and pt says I think therapy is better than pills... despite lousy mood pt has given some thought about discharge...has showered, is now walking on her own and off 1:1, urinating on her own and not needing straight cath 03/09 Patient says I do not know when asked how she is doing which is somewhat of an improvement from yesterday. She remains out in the milieu, hanging around others though mostly keeping to herself. Walking fine, remains with no residual urine per bladder scan. Discussed aftercare and patient is amenable to day program -patient has improved somewhat but is still overall depressed; will give it another day or so. If she remains down will consider either increasing Cymbalta or retry and Wellbutrin 03/10 pt difficult with which to engage. On inquiry about mood she says i don't know.... She says SI is there a little and that it comes and goes but is fleeting. No change in pain; remains constipated. Does not notice Wellbutrin which is being re-tried. -that said, she remains out of her room, in the milue and though keeping to herself, is not isolating; walking around on her own well -will try once more to increase Gabapentin to address chronic pain; if not effective or not tolerated, may try lyrica 03/11 Patient again says I do not know to how she is feeling. Remains out of her room, attending groups but mostly keeping to herself. Agrees to titration of medications. Denies AVH 03/12 Wellbutrin was increased to 300; will see if this helps; if not will consider possible increase Cymbalta or try another category; will change clonazepam since though helps with anxiety seems to be making patient tired in the afternoon 03/13 Patient remains presenting depressed. Says her mood is lousy and affect downcast. Patient says she has a little SI and says that over the years it comes and goes and will flare at certain times. Discussed medication regimen and patient has never tried lithium but agrees to try it now since Wellbutrin has not seem to help much. -ECT? 03/14 Patient noticeably brighter today and more social, engaged, sitting and interacting with peers. She says her mood is ok which is an improvement. Patient told nurse that she was having trouble walking and needed assistance however nurse gently challenged patient having just witnessed her walking around the milieu without any trouble. Patient did not contest -Discussed risks/side effects of lithium and patient agrees to continue 03/15 Patient reports that today she is lousy though she overall remains more interactive. Patient agrees with increase of lithium. She asks if she could see a neurologist to see if she needs a brain scan and abstract writer discuss this. Patient is brother shared that patient used to be much more independent, living on her own, driving, holding down a job; however this was over a decade ago. She ended up living with her mother and patient's brother thinks she just got use to being taken care of. He says she has always been depressed for most of her life and was pretty lonely, never really had friends. Never got diagnosed with ASD but there was discussion of it. She did graduate high school he thinks in regular classes. 03/16 Patient reports that she is doing all right... And says she is without any SI and no longer thinking at all about overdosing on medication. Discussed lithium and she agrees to increase and to see if it is effective. -not sure what to make of intermittent visual hallucinations; they occur at night seemingly when she is waking or falling asleep. 03/18: Active on unit, keeping to self. attending groups. pt reports feeling depressed ; she reports suicidal ideation comes and goes . denies HI/AH. Pt reports visual hallucinations, reporting they are nothing violent ; she did not go into further detail. States she did not have nightmares last night; per nursing, slept 8 hours last night. Continue current tx plan. 03/20: continue current management and treatment plan. Plan: CV Q 15 minute checks Increased to lithium ER 600 mg q.h.s.; abstract writer reviewed risks/side effects of this medication and she agrees DC Wellbutrin XL has not helped Continue gabapentin 200 mg t.i.d. for chronic pain (reviewed risks/side-effects) Lowered Clonazepam 0.25 mg b.i.d. for anxiety; has been on in the past Swich to PRN Cyclobenzaprine 10 mg t.i.d.prn (with p.r.n.; patient has been on as high doses 20 mg) Continue Cymbalta 60 mg DC fluoxetine famotidine 20 mg b.i.d.; patient says she has chronic GERD risperidone 3 mg q.h.s. prazosin 1 mg q.h.s. Cogentin 0.5 mg b.i.d. Ordered H pylori antigen stool test (patient has refused to comply); patient says she has had intractable GERD for a long time; has never been tested for H pylori Regarding [place], Risks, side-effects and benefits reviewed with pt, including, but not limited to, damage to kidneys and thyroid; pt was educated on symptoms of lithium toxicity (also discussed, including but not limited to gait, tremor, confusion) and the need to stay away from OTC NSAIDs (specifics reviewed) aside from Tylenol. Reason for continued inpatient stay Substantial Risk for: inability to function and rapid decompensation Time Spent With Patient Time: Total time managing care of this patient today ____ minutes.
[2025-03-20 20:00] VITALS: BP 130/68; PULSE 121; RESP 15; TEMP 36.2; O2SAT 96
[2025-03-20] MEDS: risperiDONE Oral Sol 1 MG/ML SOLUTION 3 MG PO (20:06)
[2025-03-20] MEDS: Sennosides 8.6 MG TABLET 17.2 MG PO (20:06)
[2025-03-20] MEDS: Lithium Carbonate ER 300 MG TABLET.ER 600 MG PO (20:06)
[2025-03-20] MEDS: Prazosin HCL 1 MG CAPSULE PO (20:07)
[2025-03-20 21:38] LABS: COVID-19 Test Negative (Negative); IDNOW Serial# 55D5AD1C
[2025-03-21] MEDS: Omeprazole 40 MG CAPSULE.DR PO ×2 (06:53→16:24)
[2025-03-21 08:00] VITALS: BP 110/72; PULSE 105; RESP 18; TEMP 36.8; O2SAT 96
[2025-03-21] MEDS: Benztropine Mesylate 0.5 MG TABLET PO ×2 (08:15→20:28)
[2025-03-21] MEDS: Fluticasone Propionate Nasal 16 GM SPRAY 2 SPRAY NOSTRIL-B (08:15)
[2025-03-21] MEDS: clonazePAM 0.5 MG TABLET 0.25 MG PO ×2 (08:15→13:35)
[2025-03-21] MEDS: Loratadine 10 MG TABLET PO (08:15)
[2025-03-21] MEDS: Gabapentin 100 MG CAPSULE 200 MG PO ×3 (08:15→20:28)
[2025-03-21] MEDS: DULoxetine HCl 60 MG CAPSULE.DR PO (08:15)
[2025-03-21] MEDS: Famotidine 20 MG TABLET PO ×2 (08:15→20:28)
[2025-03-21] MEDS: Atorvastatin Calcium 10 MG TABLET PO (08:15)
[2025-03-21] MEDS: polyethylene glycoL 3350 17 GM POWD.PACK PO (08:16)
[2025-03-21 08:40] LABS: Anion Gap 15 (12-20); Blood Urea Nitrogen 18 mg/dL (9-16); Calcium 9.8 mg/dL (8.4-10.2); Carbon Dioxide 26 mmol/L (22-29); Chloride 105 mmol/L (96-108); Creatinine Clr Calc Pharmacy 69.7; Estimated Glomerular Filt Rate > 60; Glucose Random 131 mg/dL (60-115); Lithium 0.82 mmol/L (0.60-1.20); Potassium 4.1 mmol/L (3.3-5.1); Sodium 142 mmol/L (135-145)
[2025-03-21 08:55] LABS: TSH reflex Free T4 2.04 uIU/mL (0.32-4.0)
--- NOTE | 2025-03-21 10:51 | P.PNPSI_ITS ---
Subjective Subjective Date of Service: 03/21/25 Reason For Visit: Depression Interim History: Active on unit, attending groups. Reports some allergies. Patient reports she is having visual illusions/hallucinations like a movie scene. Denies SI. Patient denies HI/AH. Review of Systems Review of Systems urinary retention Yes all other systems are reviewed and are negative Mental Status Exam Mental Status Exam Narrative: Pt is alert and oriented; behavior is more calm, more social and is more engaged with others, on her own walking around; dressed in hospital pants, casual top with adequate hygiene; glasses, appears older than chronological age; mood is described as alright and affect remains overall brighter; eye contact a little avoidant (baseline); Speech is mumbled (which is baseline) but she can slow down and articulate; normal volume; some psychomotor retardation present; thought process is goal directed, concrete; Thought content is on dealing with pain and depression; no delusional ideations expressed; no SI; no HI; patient reports intermittent VH that does not bother her; Patients insight and judgment adequate and at baseline Patient Appearance: Appropriate Patient Orientation: Person, Place, Time and Situation Level of Consciousness: Awake Patient Behavior: Appropriate, Cooperative and Good Eye Contact Mood Description: Depressed Affect Description: Blunted Patient Cognition Impaired: No Ability to Follow Directions: Good Speech Pattern: Mumbled Memory Description: Episodic Impaired Diagnostics Vital Signs (24Hr): Vital Signs - 24 hr 03/20/25 20:00 03/21/25 08:00 Temperature 97.1 F 98.2 F Pulse Rate 121 H 105 H Respiratory Rate 15 18 Blood Pressure 130/68 110/72 Pulse Oximetry 96 96 Oxygen Delivery Method Room Air BMI result Body Mass Index 25.8 Labs 03/06/25 12:37 03/21/25 08:01 Labs: Laboratory Results - last 48 hr 03/20/25 03/21/25 21:15 08:01 Sodium 142 Potassium 4.1 Chloride 105 Carbon Dioxide 26 Anion Gap 15 BUN 18 H Creatinine 0.93 Estim Creat Clear Calc 69.7 Estimated GFR > 60 Random Glucose 131 H Calcium 9.8 TSH 2.04 [place] 0.82 COVID-19 ([facility]) Negative COVID-19 Clin Com See Note Imaging Radiology Impressions: ITS Impressions Chest X-Ray 02/18/25 09:58 IMPRESSION: Mild interstitial edema and bilateral pleural effusions, small to moderate volume, similar to slightly worsened since prior exam. Electronically signed by: Hamlet Stephens MD 02/18/2025 10:42 AM EDT Medications Medications Current Medications Acetaminophen (Acetaminophen 325 Mg Tablet) 650 mg PO Q6H PRN PRN Reason: Headache/Pain, Scale 1-10 Last Admin: 03/04/25 12:50 Dose: 325 mg Al Hydroxide/Mg Hydroxide (Magnesium Hydrox/Alum Hydrox 30 Ml Oral.Susp) 30 ml PO Q6H PRN PRN Reason: Heartburn/Nausea Atorvastatin Calcium (Atorvastatin Calcium 10 Mg Tablet) 10 mg PO DAILY COUNTS INCLUDE 234 BEDS AT THE [facility] Last Admin: 03/21/25 08:15 Dose: 10 mg Benztropine Mesylate (Benztropine Mesylate 0.5 Mg Tablet) 0.5 mg PO BID COUNTS INCLUDE 234 BEDS AT THE [facility] Last Admin: 03/21/25 08:15 Dose: 0.5 mg Clonazepam (Clonazepam 0.5 Mg Tablet) 0.25 mg PO BID@0900,1400 COUNTS INCLUDE 234 BEDS AT THE [facility] Last Admin: 03/21/25 08:15 Dose: 0.25 mg Cyclobenzaprine HCl (Cyclobenzaprine Hcl 10 Mg Tablet) 10 mg PO TID PRN PRN Reason: Muscle Spasm/aches Last Admin: 03/19/25 21:07 Dose: 10 mg Docusate Sodium (Docusate Sodium 100 Mg Capsule) 100 mg PO DAILY PRN PRN Reason: constipation Last Admin: 03/01/25 09:11 Dose: 100 mg Duloxetine HCl (Duloxetine Hcl 60 Mg Capsule.Dr) 60 mg PO DAILY COUNTS INCLUDE 234 BEDS AT THE [facility] Last Admin: 03/21/25 08:15 Dose: 60 mg Famotidine (Famotidine 20 Mg Tablet) 20 mg PO BID COUNTS INCLUDE 234 BEDS AT THE [facility] Last Admin: 03/21/25 08:15 Dose: 20 mg Fluticasone Propionate (Fluticasone Propionate Nasal 16 Gm [place]) 2 spray NOSTRIL-B DAILY COUNTS INCLUDE 234 BEDS AT THE [facility] Last Admin: 03/21/25 08:15 Dose: 2 spray Gabapentin (Gabapentin 100 Mg Capsule) 200 mg PO TID COUNTS INCLUDE 234 BEDS AT THE [facility] Last Admin: 03/21/25 08:15 Dose: 200 mg Hydrocortisone (Hydrocortisone 2.5 % Rectal Cr 30 Gm Tube) 1 appl AR Q6H PRN PRN Reason: Hemorrhoids Hydroxyzine HCl (Hydroxyzine Hcl 25 Mg Tablet) 25 mg PO Q6H PRN PRN Reason: mild anxiety Last Admin: 03/19/25 08:50 Dose: 25 mg [place] Carbonate ([place] Carbonate Er 300 Mg Tablet.Er) 600 mg PO BEDTIME SYMONE Last Admin: 03/20/25 20:06 Dose: 600 mg Loratadine (Loratadine 10 Mg Tablet) 10 mg PO DAILY SYMONE Last Admin: 03/21/25 08:15 Dose: 10 mg Magnesium Hydroxide (Milk Of Magnesia 30 Ml Oral.Susp) 30 ml PO DAILY PRN PRN Reason: Constipation Last Admin: 03/01/25 17:51 Dose: 30 ml Naproxen (Naproxen 500 Mg Tablet) 500 mg PO BID PRN PRN Reason: Pain (Scale Score 1-3) Last Admin: 03/19/25 21:07 Dose: 500 mg Nicotine Polacrilex (Nicotine Polacrilex 2 Mg Gum) 4 mg BUCCAL Q2H PRN PRN Reason: Nicotine Cravings Omeprazole (Omeprazole 40 Mg Capsule.Dr) 40 mg PO BID@0630,1630 COUNTS INCLUDE 234 BEDS AT THE [facility] Last Admin: 03/21/25 06:53 Dose: 40 mg Ondansetron HCl (Ondansetron Odt 4 Mg Tab.Rapdis) 4 mg TRANSLINGU Q8H PRN PRN Reason: Nausea and Vomiting Last Admin: 03/06/25 12:03 Dose: 4 mg Polyethylene Glycol (Polyethylene Glycol 3350 17 Gm Powd.Pack) 17 gm PO DAILY PRN PRN Reason: Constipation Last Admin: 03/01/25 09:56 Dose: 17 gm Polyethylene Glycol (Polyethylene Glycol 3350 17 Gm Powd.Pack) 17 gm PO DAILY COUNTS INCLUDE 234 BEDS AT THE [facility] Last Admin: 03/21/25 08:16 Dose: 17 gm Prazosin HCl (Prazosin Hcl 1 Mg Capsule) 1 mg PO BEDTIME SYMONE; Protocol Last Admin: 03/20/25 20:07 Dose: 1 mg Risperidone (Risperidone Oral [place] 1 Mg/Ml Solution) 3 mg PO BEDTIME SYMONE Last Admin: 03/20/25 20:06 Dose: 3 mg Senna (Sennosides 8.6 Mg Tablet) 17.2 mg PO BEDTIME SYMONE Last Admin: 03/20/25 20:06 Dose: 17.2 mg Allergies Allergies Allergy/AdvReac Type Severity Reaction Status Date / Time No Known Allergies Allergy Verified 02/18/25 07:24 [No Known Allergies*] Assessment & Plan Assessment & Plan (1) MDD (major depressive disorder), recurrent severe, without psychosis: Status: Acute Code(s): F33.2 - Major depressive disorder, recurrent severe without psychotic features (2) Anxiety: Status: Acute Code(s): F41.9 - Anxiety disorder, unspecified Plan 54 year-old female with PMHx of Parkinson's with dyskinesia, metabolic encephalopathy, constipation, ulcerative colitis, GERD, IBS, 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 Patient called 911 saying she was short of breath but here in the ED she talked about wanting to . Patient reports that about a month ago, she stopped going to her therapist due to lack of insurance; she says she does not take medications regularly, runs out of them and does not get refills and has been off of her medications for about 2 months. She says that she was doing overall good enough and that depression would come and go. They however she has been feeling more down, tired of always being in pain. Patient explained contributory factors being chronic pain which says seems to have gotten worse recently (patient names almost every part of her body as painful: headaches, joints, stomach, legs, feet...each toe). Patient reports up until a week ago, she was living on her own in her own apartment but this past week she moved into a residential, saying she needed more support. Over these past few days she became more depressed. Once in the emergency room she says she started to think about ending it... Taking a bunch of pills... Patient explains concretely if I were home I would have done it because I had access to the pills... Here I do not have access to the pills. She reports Hx of SI but has never actually tried to; says usually the feeling passes; reports extreme anxiety since childhood; seems to endorse depressive episodes. -denies AVH or paranoid ideations; she does not know why she is prescribed risperidone -denies drug or alcohol use Formulation/clinical reasoning: Endorses depression and anxiety; has been off her medications which is likely contributory as well as chronic pain though not sure the cause; she says nothing has ever help with her pain before however agrees to start and try gabapentin. Patient with blunted affect and concrete; will seek to rule out ASD. Need collateral Hospital course: 02/21 still feeling down; still thinking of suicide but hopeful not to do it agrees to increase prozac to 40mg; also agrees to increased Gabapentin 300mg TID has not had a BM yet; says chronically has trouble pooping and has been constipated for years -agrees to Mirrilax 02/22 Patient reports that she is still depressed and still feeling suicidal though she reports SI is waning. No bowel movement. No medication side effects and agrees to titration 02/23 says still depressed and still with some SI remaining; agrees to increasing buproprion -still constipated 02/24 says still depressed; still with some SI; talked about anxiety as well. pt says no change in chronic body pain with gabapentin; agrees to titrate 02/25 no change in presentation; still depressed, still w/ some SI. Tried to discuss etiology of depression which she seems to say was sudden and did not have anything to do w/ moving into residential 02/[address] IMPRESSION:. No acute intracranial findings. 03/02 Patient had a tough weekend. There was some concern that she slurred her speech was confused or dizzy. Head CT negative. Today patient says she wants to that she is so sad.. And feels so unhappy. Patient is tearful and endorses SI. She can be hard to understand however when manual writer mentions this, she apologizes, slows down her speech and is understandable. She says she has pain everywhere from her head to her toes and everywhere in-between. She thinks maybe it was a little better last week and manual writer mentioned that her gabapentin had been significantly lowered over the weekend possibly out of concern for patient's dizziness. Patient says she has no formal diagnosis for pain. Garment Sorter discussed medication regimen with patient who agreed to discontinue Prozac, discontinue Wellbutrin, which have not seemed to help and instead start on Cymbalta which can help with both anxiety, depression as well as pain. Patient shuffling around and now reporting falls; manual writer inquired and she agreed she was not falling last week but says it is only change now due to the increase in pain. At this point, changes seem more due to behaviors rather than organic. Given that patient has a history of Parkinson's and for some reason a pain syndrome that seems undiagnosed, Neuro consult placed as well -will consider increasing gabapentin again -add cyclobenzaprine which she has been on in the past -reportedly patient has history of Parkinson's 03/03 Regarding SI, she says it is still remains; however, mood little better today; tolerating cymbalta 60mg and discussed med changes again. She said that Said due to her anxiety she has been a little snippy with people which she says she has talked to her therapist about Patient mentioned visual hallucinations; she explains to manual writer that says seeing like a painting on the wall, like people walking around... However with further inquiry, this only occurs when she is waking up from sleep and not otherwise. 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 She agrees to retry Flexeril to see if that is helpful. Patient complained of dysuria to nurse and asked for UA but was specific and wanting to be straight cathed. Patient had a significant volume of urine removed and is not sure if this is due to urinary retention or if patient is intentionally avoiding urinating; patient told manual writer she has intermittent history of urinary retention.. She also has been complaining about constipation however has been refusing laxatives/stool softeners. Garment Sorter discussed this and patient says she has long history of constipation and is worry about taking medications that will cause copious diarrhea, which happened once before when she laxatives. She agreed however that constipation needs to be relieved and said she would take medications. UA pending: unremarkable (bladder scan q shift w/ strait cath for CC>500) 03/04 Patient reports to manual writer that her mood is a little better and today no SI. Patient also says that her pain is a little bit better today. She is not sure Flexeril helped but agrees to have it scheduled. Patient up walking around the unit today without assistance. Patient remains with urinary retention via bladder scans. Will get consult. Later in the day manual writer met with patient again who was feeling more distraught and now saying she is not better at all. Patient says she feels marginalized because she has a disability. Discussed chronic pain with patient and her brother who was also present; patient remained vague about this issue and says she has just learned to deal with it; she is agreeing to increasing gabapentin. Also agrees to clonazepam -will 1st add clonazepam 0.5 mg b.i.d.; she has been on in the past and her anxiety seems to be a major contributor to her experience of pain and her ability to walk freely on her own. -will consider increasing gabapentin as well 03/05 pt says little better but still has SI, though she says it remains less. Pain not alleviated by scheduled flexeril. Pt explained she has a long hx of emotional lability. Agrees Clonazepam lowers anxiety, though it makes her tired. At this time she feels it's a welcomed break from anxiety. Also agrees to increase Gabapentin again, since it seemed to be helping, even if it too makes her tired. -still w/ urinary retention; PA recs to increase bladder scan to q6h and cath for CC>350; will monitor and get Urology consult if persists 03/07- Continue plan Urology consult 03/08 mood is lousy...i've been miserable all my life.. pt says the pain is the same pt went to a couple groups but said she didn't get anything out of it. Talked about medications and pt says I think therapy is better than pills... despite lousy mood pt has given some thought about discharge...has showered, is now walking on her own and off 1:1, urinating on her own and not needing straight cath 03/09 Patient says I do not know when asked how she is doing which is somewhat of an improvement from yesterday. She remains out in the milieu, hanging around others though mostly keeping to herself. Walking fine, remains with no residual urine per bladder scan. Discussed aftercare and patient is amenable to day program -patient has improved somewhat but is still overall depressed; will give it another day or so. If she remains down will consider either increasing Cymbalta or retry and Wellbutrin 03/10 pt difficult with which to engage. On inquiry about mood she says i don't know.... She says SI is there a little and that it comes and goes but is fleeting. No change in pain; remains constipated. Does not notice Wellbutrin which is being re-tried. -that said, she remains out of her room, in the milue and though keeping to herself, is not isolating; walking around on her own well -will try once more to increase Gabapentin to address chronic pain; if not effective or not tolerated, may try lyrica 03/11 Patient again says I do not know to how she is feeling. Remains out of her room, attending groups but mostly keeping to herself. Agrees to titration of medications. Denies AVH 03/12 Wellbutrin was increased to 300; will see if this helps; if not will consider possible increase Cymbalta or try another category; will change clonazepam since though helps with anxiety seems to be making patient tired in the afternoon 03/13 Patient remains presenting depressed. Says her mood is lousy and affect downcast. Patient says she has a little SI and says that over the years it comes and goes and will flare at certain times. Discussed medication regimen and patient has never tried lithium but agrees to try it now since Wellbutrin has not seem to help much. -ECT? 03/14 Patient noticeably brighter today and more social, engaged, sitting and interacting with peers. She says her mood is ok which is an improvement. Patient told nurse that she was having trouble walking and needed assistance however nurse gently challenged patient having just witnessed her walking around the milieu without any trouble. Patient did not contest -Discussed risks/side effects of lithium and patient agrees to continue 03/15 Patient reports that today she is lousy though she overall remains more interactive. Patient agrees with increase of lithium. She asks if she could see a neurologist to see if she needs a brain scan and manual writer discuss this. Patient is brother shared that patient used to be much more independent, living on her own, driving, holding down a job; however this was over a decade ago. She ended up living with her mother and patient's brother thinks she just got use to being taken care of. He says she has always been depressed for most of her life and was pretty lonely, never really had friends. Never got diagnosed with ASD but there was discussion of it. She did graduate high school he thinks in regular classes. 03/16 Patient reports that she is doing all right... And says she is without any SI and no longer thinking at all about overdosing on medication. Discussed lithium and she agrees to increase and to see if it is effective. -not sure what to make of intermittent visual hallucinations; they occur at night seemingly when she is waking or falling asleep. 03/18: Active on unit, keeping to self. attending groups. pt reports feeling depressed ; she reports suicidal ideation comes and goes . denies HI/AH. Pt reports visual hallucinations, reporting they are nothing violent ; she did not go into further detail. States she did not have nightmares last night; per nursing, slept 8 hours last night. Continue current tx plan. 03/20: continue current management and treatment plan. 03/21: continue current management and treatment plan. Plan: CV Q 15 minute checks Increased to lithium ER 600 mg q.h.s.; manual writer reviewed risks/side effects of this medication and she agrees DC Wellbutrin XL has not helped Continue gabapentin 200 mg t.i.d. for chronic pain (reviewed risks/side-effects) Lowered Clonazepam 0.25 mg b.i.d. for anxiety; has been on in the past Swich to PRN Cyclobenzaprine 10 mg t.i.d.prn (with p.r.n.; patient has been on as high doses 20 mg) Continue Cymbalta 60 mg DC fluoxetine famotidine 20 mg b.i.d.; patient says she has chronic GERD risperidone 3 mg q.h.s. prazosin 1 mg q.h.s. Cogentin 0.5 mg b.i.d. Ordered H pylori antigen stool test (patient has refused to comply); patient says she has had intractable GERD for a long time; has never been tested for H pylori Regarding [place], Risks, side-effects and benefits reviewed with pt, including, but not limited to, damage to kidneys and thyroid; pt was educated on symptoms of lithium toxicity (also discussed, including but not limited to gait, tremor, confusion) and the need to stay away from OTC NSAIDs (specifics reviewed) aside from Tylenol. Reason for continued inpatient stay Substantial Risk for: harm to self and rapid decompensation Time Spent With Patient Time: Total time managing care of this patient today ____ minutes.
[2025-03-21 19:56] VITALS: BP 137/76; PULSE 106; RESP 15; TEMP 37.1; O2SAT 95
[2025-03-21] MEDS: risperiDONE Oral Sol 1 MG/ML SOLUTION 3 MG PO (20:27)
[2025-03-21] MEDS: Prazosin HCL 1 MG CAPSULE PO (20:28)
[2025-03-21] MEDS: Sennosides 8.6 MG TABLET 17.2 MG PO (20:28)
[2025-03-21] MEDS: Lithium Carbonate ER 300 MG TABLET.ER 600 MG PO (20:28)
[2025-03-22] MEDS: Omeprazole 40 MG CAPSULE.DR PO ×2 (06:35→16:17)
[2025-03-22 08:00] VITALS: BP 115/60; PULSE 109; RESP 16; TEMP 37.2; O2SAT 95
[2025-03-22] MEDS: Atorvastatin Calcium 10 MG TABLET PO (08:28)
[2025-03-22] MEDS: Loratadine 10 MG TABLET PO (08:28)
[2025-03-22] MEDS: Benztropine Mesylate 0.5 MG TABLET PO ×2 (08:28→20:06)
[2025-03-22] MEDS: Gabapentin 100 MG CAPSULE 200 MG PO ×3 (08:28→20:09)
[2025-03-22] MEDS: DULoxetine HCl 60 MG CAPSULE.DR PO (08:28)
[2025-03-22] MEDS: clonazePAM 0.5 MG TABLET 0.25 MG PO ×2 (08:29→14:29)
[2025-03-22] MEDS: Famotidine 20 MG TABLET PO ×2 (08:29→20:07)
[2025-03-22] MEDS: Fluticasone Propionate Nasal 16 GM SPRAY 2 SPRAY NOSTRIL-B (08:32)
--- NOTE | 2025-03-22 09:31 | P.PNPSI_ITS ---
Subjective Subjective Date of Service: 03/22/25 Reason For Visit: Depression Interim History: Seems improved. Active on unit, attending groups. Pleasant. Calm and cooperative. Has not been reporting her visual perceptions. Discussing with nursing her intermediate situation. Denies SI. Patient denies HI/AH. Review of Systems Review of Systems urinary retention Yes all other systems are reviewed and are negative Mental Status Exam Mental Status Exam Narrative: Pt is alert and oriented; behavior is more calm, more social and is more engaged with others, on her own walking around; dressed in hospital pants, casual top with adequate hygiene; glasses, appears older than chronological age; mood is described as alright and affect remains overall brighter; eye contact a little avoidant (baseline); Speech is mumbled (which is baseline) but she can slow down and articulate; normal volume; some psychomotor retardation present; thought process is goal directed, concrete; Thought content is on dealing with pain and depression; no delusional ideations expressed; no SI; no HI; patient reports intermittent VH that does not bother her; Patients insight and judgment adequate and at baseline Patient Appearance: Appropriate Patient Orientation: Person, Place, Time and Situation Level of Consciousness: Awake Patient Behavior: Appropriate, Cooperative and Good Eye Contact Mood Description: Depressed Affect Description: Blunted Patient Cognition Impaired: No Ability to Follow Directions: Good Speech Pattern: Mumbled Memory Description: Episodic Impaired Diagnostics Vital Signs (24Hr): Vital Signs - 24 hr 03/21/25 19:56 03/22/25 08:00 Temperature 98.7 F 98.9 F Pulse Rate 106 H 109 H Respiratory Rate 15 16 Blood Pressure 137/76 115/60 Pulse Oximetry 95 95 Oxygen Delivery Method Room Air BMI result Body Mass Index 25.8 Labs 03/06/25 12:37 03/21/25 08:01 Labs: Laboratory Results - last 48 hr 03/20/25 03/21/25 21:15 08:01 Sodium 142 Potassium 4.1 Chloride 105 Carbon Dioxide 26 Anion Gap 15 BUN 18 H Creatinine 0.93 Estim Creat Clear Calc 69.7 Estimated GFR > 60 Random Glucose 131 H Calcium 9.8 TSH 2.04 Everetts 0.82 COVID-19 ([facility]) Negative COVID-19 Clin Com See Note Imaging Radiology Impressions: ITS Impressions Chest X-Ray 02/18/25 09:58 IMPRESSION: Mild interstitial edema and bilateral pleural effusions, small to moderate volume, similar to slightly worsened since prior exam. Electronically signed by: Hamlet Stephens MD 02/18/2025 10:42 AM EDT Medications Medications Current Medications Acetaminophen (Acetaminophen 325 Mg Tablet) 650 mg PO Q6H PRN PRN Reason: Headache/Pain, Scale 1-10 Last Admin: 03/04/25 12:50 Dose: 325 mg Al Hydroxide/Mg Hydroxide (Magnesium Hydrox/Alum Hydrox 30 Ml Oral.Susp) 30 ml PO Q6H PRN PRN Reason: Heartburn/Nausea Atorvastatin Calcium (Atorvastatin Calcium 10 Mg Tablet) 10 mg PO DAILY [facility] Last Admin: 03/22/25 08:28 Dose: 10 mg Benzocaine (Throat Lozenge, Medicated Lozenge) 1 lozenge MUCOUS MEM Q2H PRN PRN Reason: Sore Throat Benztropine Mesylate (Benztropine Mesylate 0.5 Mg Tablet) 0.5 mg PO BID [facility] Last Admin: 03/22/25 08:28 Dose: 0.5 mg Clonazepam (Clonazepam 0.5 Mg Tablet) 0.25 mg PO BID@0900,1400 [facility] Last Admin: 03/22/25 08:29 Dose: 0.25 mg Cyclobenzaprine HCl (Cyclobenzaprine Hcl 10 Mg Tablet) 10 mg PO TID PRN PRN Reason: Muscle Spasm/aches Last Admin: 03/19/25 21:07 Dose: 10 mg Docusate Sodium (Docusate Sodium 100 Mg Capsule) 100 mg PO DAILY PRN PRN Reason: constipation Last Admin: 03/01/25 09:11 Dose: 100 mg Duloxetine HCl (Duloxetine Hcl 60 Mg Capsule.Dr) 60 mg PO DAILY [facility] Last Admin: 03/22/25 08:28 Dose: 60 mg Famotidine (Famotidine 20 Mg Tablet) 20 mg PO BID [facility] Last Admin: 03/22/25 08:29 Dose: 20 mg Fluticasone Propionate (Fluticasone Propionate Nasal 16 Gm [place]) 2 spray NOSTRIL-B DAILY [facility] Last Admin: 03/22/25 08:32 Dose: 2 spray Gabapentin (Gabapentin 100 Mg Capsule) 200 mg PO TID [facility] Last Admin: 03/22/25 08:28 Dose: 200 mg Hydrocortisone (Hydrocortisone 2.5 % Rectal Cr 30 Gm Tube) 1 appl VT Q6H PRN PRN Reason: Hemorrhoids Hydroxyzine HCl (Hydroxyzine Hcl 25 Mg Tablet) 25 mg PO Q6H PRN PRN Reason: mild anxiety Last Admin: 03/19/25 08:50 Dose: 25 mg Everetts Carbonate (Everetts Carbonate Er 300 Mg Tablet.Er) 600 mg PO BEDTIME [facility] Last Admin: 03/21/25 20:28 Dose: 600 mg Loratadine (Loratadine 10 Mg Tablet) 10 mg PO DAILY [facility] Last Admin: 03/22/25 08:28 Dose: 10 mg Loratadine (Loratadine 10 Mg Tablet) 10 mg PO DAILY [facility] Magnesium Hydroxide (Milk Of Magnesia 30 Ml Oral.Susp) 30 ml PO DAILY PRN PRN Reason: Constipation Last Admin: 03/01/25 17:51 Dose: 30 ml Naproxen (Naproxen 500 Mg Tablet) 500 mg PO BID PRN PRN Reason: Pain (Scale Score 1-3) Last Admin: 03/19/25 21:07 Dose: 500 mg Nicotine Polacrilex (Nicotine Polacrilex 2 Mg Gum) 4 mg BUCCAL Q2H PRN PRN Reason: Nicotine Cravings Omeprazole (Omeprazole 40 Mg Capsule.Dr) 40 mg PO BID@0630,1630 [facility] Last Admin: 03/22/25 06:35 Dose: 40 mg Ondansetron HCl (Ondansetron Odt 4 Mg Tab.Rapdis) 4 mg TRANSLINGU Q8H PRN PRN Reason: Nausea and Vomiting Last Admin: 03/06/25 12:03 Dose: 4 mg Polyethylene Glycol (Polyethylene Glycol 3350 17 Gm Powd.Pack) 17 gm PO DAILY PRN PRN Reason: Constipation Last Admin: 03/01/25 09:56 Dose: 17 gm Polyethylene Glycol (Polyethylene Glycol 3350 17 Gm Powd.Pack) 17 gm PO DAILY [facility] Last Admin: 03/22/25 08:33 Dose: Not Given Prazosin HCl (Prazosin Hcl 1 Mg Capsule) 1 mg PO BEDTIME SYMONE; Protocol Last Admin: 03/21/25 20:28 Dose: 1 mg Risperidone (Risperidone Oral Lindsay 1 Mg/Ml Solution) 3 mg PO BEDTIME SYMONE Last Admin: 03/21/25 20:27 Dose: 3 mg Senna (Sennosides 8.6 Mg Tablet) 17.2 mg PO BEDTIME SYMONE Last Admin: 03/21/25 20:28 Dose: 17.2 mg Allergies Allergies Allergy/AdvReac Type Severity Reaction Status Date / Time No Known Allergies Allergy Verified 02/18/25 07:24 [No Known Allergies*] Assessment & Plan Assessment & Plan (1) MDD (major depressive disorder), recurrent severe, without psychosis: Status: Acute Code(s): F33.2 - Major depressive disorder, recurrent severe without psychotic features (2) Anxiety: Status: Acute Code(s): F41.9 - Anxiety disorder, unspecified Plan 54 year-old female with PMHx of Parkinson's with dyskinesia, metabolic encephalopathy, constipation, ulcerative colitis, GERD, IBS, 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 Patient called 911 saying she was short of breath but here in the ED she talked about wanting to . Patient reports that about a month ago, she stopped going to her therapist due to lack of insurance; she says she does not take medications regularly, runs out of them and does not get refills and has been off of her medications for about 2 months. She says that she was doing overall good enough and that depression would come and go. They however she has been feeling more down, tired of always being in pain. Patient explained contributory factors being chronic pain which says seems to have gotten worse recently (patient names almost every part of her body as painful: headaches, joints, stomach, legs, feet...each toe). Patient reports up until a week ago, she was living on her own in her own apartment but this past week she moved into a intermediate, saying she needed more support. Over these past few days she became more depressed. Once in the emergency room she says she started to think about ending it... Taking a bunch of pills... Patient explains concretely if I were home I would have done it because I had access to the pills... Here I do not have access to the pills. She reports Hx of SI but has never actually tried to; says usually the feeling passes; reports extreme anxiety since childhood; seems to endorse depressive episodes. -denies AVH or paranoid ideations; she does not know why she is prescribed risperidone -denies drug or alcohol use Formulation/clinical reasoning: Endorses depression and anxiety; has been off her medications which is likely contributory as well as chronic pain though not sure the cause; she says nothing has ever help with her pain before however agrees to start and try gabapentin. Patient with blunted affect and concrete; will seek to rule out ASD. Need collateral Hospital course: 02/21 still feeling down; still thinking of suicide but hopeful not to do it agrees to increase prozac to 40mg; also agrees to increased Gabapentin 300mg TID has not had a BM yet; says chronically has trouble pooping and has been constipated for years -agrees to Mirrilax 02/22 Patient reports that she is still depressed and still feeling suicidal though she reports SI is waning. No bowel movement. No medication side effects and agrees to titration 02/23 says still depressed and still with some SI remaining; agrees to increasing buproprion -still constipated 02/24 says still depressed; still with some SI; talked about anxiety as well. pt says no change in chronic body pain with gabapentin; agrees to titrate 02/25 no change in presentation; still depressed, still w/ some SI. Tried to discuss etiology of depression which she seems to say was sudden and did not have anything to do w/ moving into intermediate 02/[address] IMPRESSION:. No acute intracranial findings. 03/02 Patient had a tough weekend. There was some concern that she slurred her speech was confused or dizzy. Head CT negative. Today patient says she wants to that she is so sad.. And feels so unhappy. Patient is tearful and endorses SI. She can be hard to understand however when communications writer mentions this, she apologizes, slows down her speech and is understandable. She says she has pain everywhere from her head to her toes and everywhere in-between. She thinks maybe it was a little better last week and communications writer mentioned that her gabapentin had been significantly lowered over the weekend possibly out of concern for patient's dizziness. Patient says she has no formal diagnosis for pain. Bursar discussed medication regimen with patient who agreed to discontinue Prozac, discontinue Wellbutrin, which have not seemed to help and instead start on Cymbalta which can help with both anxiety, depression as well as pain. Patient shuffling around and now reporting falls; communications writer inquired and she agreed she was not falling last week but says it is only change now due to the increase in pain. At this point, changes seem more due to behaviors rather than organic. Given that patient has a history of Parkinson's and for some reason a pain syndrome that seems undiagnosed, Neuro consult placed as well -will consider increasing gabapentin again -add cyclobenzaprine which she has been on in the past -reportedly patient has history of Parkinson's 03/03 Regarding SI, she says it is still remains; however, mood little better today; tolerating cymbalta 60mg and discussed med changes again. She said that Said due to her anxiety she has been a little snippy with people which she says she has talked to her therapist about Patient mentioned visual hallucinations; she explains to communications writer that says seeing like a painting on the wall, like people walking around... However with further inquiry, this only occurs when she is waking up from sleep and not otherwise. plate take out worker discussed with brother who says that this sounds like behavioral episodes patient has had the past Regarding body pain, she says it is actually a little better. She agrees to retry Flexeril to see if that is helpful. Patient complained of dysuria to nurse and asked for UA but was specific and wanting to be straight cathed. Patient had a significant volume of urine removed and is not sure if this is due to urinary retention or if patient is intentionally avoiding urinating; patient told communications writer she has intermittent history of urinary retention.. She also has been complaining about constipation however has been refusing laxatives/stool softeners. Bursar discussed this and patient says she has long history of constipation and is worry about taking medications that will cause copious diarrhea, which happened once before when she laxatives. She agreed however that constipation needs to be relieved and said she would take medications. UA pending: unremarkable (bladder scan q shift w/ strait cath for CC>500) 03/04 Patient reports to communications writer that her mood is a little better and today no SI. Patient also says that her pain is a little bit better today. She is not sure Flexeril helped but agrees to have it scheduled. Patient up walking around the unit today without assistance. Patient remains with urinary retention via bladder scans. Will get consult. Later in the day communications writer met with patient again who was feeling more distraught and now saying she is not better at all. Patient says she feels marginalized because she has a disability. Discussed chronic pain with patient and her brother who was also present; patient remained vague about this issue and says she has just learned to deal with it; she is agreeing to increasing gabapentin. Also agrees to clonazepam -will 1st add clonazepam 0.5 mg b.i.d.; she has been on in the past and her anxiety seems to be a major contributor to her experience of pain and her ability to walk freely on her own. -will consider increasing gabapentin as well 03/05 pt says little better but still has SI, though she says it remains less. Pain not alleviated by scheduled flexeril. Pt explained she has a long hx of emotional lability. Agrees Clonazepam lowers anxiety, though it makes her tired. At this time she feels it's a welcomed break from anxiety. Also agrees to increase Gabapentin again, since it seemed to be helping, even if it too makes her tired. -still w/ urinary retention; PA recs to increase bladder scan to q6h and cath for CC>350; will monitor and get Urology consult if persists 03/07- Continue plan Urology consult 03/08 mood is lousy...i've been miserable all my life.. pt says the pain is the same pt went to a couple groups but said she didn't get anything out of it. Talked about medications and pt says I think therapy is better than pills... despite lousy mood pt has given some thought about discharge...has showered, is now walking on her own and off 1:1, urinating on her own and not needing straight cath 03/09 Patient says I do not know when asked how she is doing which is somewhat of an improvement from yesterday. She remains out in the milieu, hanging around others though mostly keeping to herself. Walking fine, remains with no residual urine per bladder scan. Discussed aftercare and patient is amenable to day program -patient has improved somewhat but is still overall depressed; will give it another day or so. If she remains down will consider either increasing Cymbalta or retry and Wellbutrin 03/10 pt difficult with which to engage. On inquiry about mood she says i don't know.... She says SI is there a little and that it comes and goes but is fleeting. No change in pain; remains constipated. Does not notice Wellbutrin which is being re-tried. -that said, she remains out of her room, in the milue and though keeping to herself, is not isolating; walking around on her own well -will try once more to increase Gabapentin to address chronic pain; if not effective or not tolerated, may try lyrica 03/11 Patient again says I do not know to how she is feeling. Remains out of her room, attending groups but mostly keeping to herself. Agrees to titration of medications. Denies AV 03/12 Wellbutrin was increased to 300; will see if this helps; if not will consider possible increase Cymbalta or try another category; will change clonazepam since though helps with anxiety seems to be making patient tired in the afternoon 03/13 Patient remains presenting depressed. Says her mood is lousy and affect downcast. Patient says she has a little SI and says that over the years it comes and goes and will flare at certain times. Discussed medication regimen and patient has never tried lithium but agrees to try it now since Wellbutrin has not seem to help much. -ECT? 03/14 Patient noticeably brighter today and more social, engaged, sitting and interacting with peers. She says her mood is ok which is an improvement. Patient told nurse that she was having trouble walking and needed assistance however nurse gently challenged patient having just witnessed her walking around the milieu without any trouble. Patient did not contest -Discussed risks/side effects of lithium and patient agrees to continue 03/15 Patient reports that today she is lousy though she overall remains more interactive. Patient agrees with increase of lithium. She asks if she could see a neurologist to see if she needs a brain scan and communications writer discuss this. Patient is brother shared that patient used to be much more independent, living on her own, driving, holding down a job; however this was over a decade ago. She ended up living with her mother and patient's brother thinks she just got use to being taken care of. He says she has always been depressed for most of her life and was pretty lonely, never really had friends. Never got diagnosed with ASD but there was discussion of it. She did graduate high school he thinks in regular classes. 03/16 Patient reports that she is doing all right... And says she is without any SI and no longer thinking at all about overdosing on medication. Discussed lithium and she agrees to increase and to see if it is effective. -not sure what to make of intermittent visual hallucinations; they occur at night seemingly when she is waking or falling asleep. 03/18: Active on unit, keeping to self. attending groups. pt reports feeling depressed ; she reports suicidal ideation comes and goes . denies HI/AH. Pt reports visual hallucinations, reporting they are nothing violent ; she did not go into further detail. States she did not have nightmares last night; per nursing, slept 8 hours last night. Continue current tx plan. 03/20: continue current management and treatment plan. 03/21: continue current management and treatment plan. 03/22: continue current management and treatment plan. Plan: CV Q 15 minute checks Increased to lithium ER 600 mg q.h.s.; communications writer reviewed risks/side effects of this medication and she agrees DC Wellbutrin XL has not helped Continue gabapentin 200 mg t.i.d. for chronic pain (reviewed risks/side-effects) Lowered Clonazepam 0.25 mg b.i.d. for anxiety; has been on in the past Swich to PRN Cyclobenzaprine 10 mg t.i.d.prn (with p.r.n.; patient has been on as high doses 20 mg) Continue Cymbalta 60 mg DC fluoxetine famotidine 20 mg b.i.d.; patient says she has chronic GERD risperidone 3 mg q.h.s. prazosin 1 mg q.h.s. Cogentin 0.5 mg b.i.d. Ordered H pylori antigen stool test (patient has refused to comply); patient says she has had intractable GERD for a long time; has never been tested for H pylori Regarding Everetts, Risks, side-effects and benefits reviewed with pt, including, but not limited to, damage to kidneys and thyroid; pt was educated on symptoms of lithium toxicity (also discussed, including but not limited to gait, tremor, confusion) and the need to stay away from OTC NSAIDs (specifics reviewed) aside from Tylenol. Reason for continued inpatient stay Substantial Risk for: harm to self, inability to function and rapid decompensation Time Spent With Patient Time: Total time managing care of this patient today ____ minutes.
[2025-03-22 20:00] VITALS: BP 114/71; PULSE 118; RESP 17; TEMP 37.1; O2SAT 99
[2025-03-22] MEDS: Lithium Carbonate ER 300 MG TABLET.ER 600 MG PO (20:06)
[2025-03-22] MEDS: Sennosides 8.6 MG TABLET 17.2 MG PO (20:07)
[2025-03-22] MEDS: Cyclobenzaprine HCl 10 MG TABLET PO (20:07)
[2025-03-22 20:09] VITALS: BP 114/71
[2025-03-22] MEDS: Prazosin HCL 1 MG CAPSULE PO (20:09)
[2025-03-22] MEDS: risperiDONE Oral Sol 1 MG/ML SOLUTION 3 MG PO (20:10)
[2025-03-23] MEDS: Omeprazole 40 MG CAPSULE.DR PO ×2 (06:17→17:03)
[2025-03-23 07:30] VITALS: BP 94/50; PULSE 100; TEMP 37.2; O2SAT 94
[2025-03-23 07:55] VITALS: BP 114/62
[2025-03-23] MEDS: clonazePAM 0.5 MG TABLET 0.25 MG PO ×2 (08:26→14:34)
[2025-03-23] MEDS: polyethylene glycoL 3350 17 GM POWD.PACK PO (08:26)
[2025-03-23] MEDS: Benztropine Mesylate 0.5 MG TABLET PO ×2 (08:26→22:09)
[2025-03-23] MEDS: Gabapentin 100 MG CAPSULE 200 MG PO ×3 (08:26→22:08)
[2025-03-23] MEDS: DULoxetine HCl 60 MG CAPSULE.DR PO (08:26)
[2025-03-23] MEDS: Famotidine 20 MG TABLET PO ×2 (08:26→22:09)
[2025-03-23] MEDS: Atorvastatin Calcium 10 MG TABLET PO (08:26)
[2025-03-23] MEDS: Fluticasone Propionate Nasal 16 GM SPRAY 2 SPRAY NOSTRIL-B (08:27)
[2025-03-23] MEDS: Loratadine 10 MG TABLET PO (08:27)
--- NOTE | 2025-03-23 10:02 | P.PNPSI_ITS ---
Subjective Subjective Date of Service: 03/23/25 Reason For Visit: Depression Interim History: Met with patient; discussed with team Patient says she is doing all right.... Okay She remains brighter, more social. Discussed labs, lithium level which are WNL Mental Status Exam Mental Status Exam Narrative: Pt is alert and oriented; behavior is more calm, more social and is more engaged with others, on her own walking around; dressed in hospital pants, casual top with adequate hygiene; glasses, appears older than chronological age; mood is described as alright...ok and affect remains overall brighter; eye contact a little avoidant (baseline); Speech is mumbled (which is baseline) but she can slow down and articulate; normal volume; some psychomotor retardation present; thought process is goal directed, concrete; Thought content is on dealing with pain and depression; no delusional ideations expressed; no SI; no HI; patient reports intermittent VH that does not bother her; Patients insight and judgment adequate and at baseline Diagnostics Vital Signs (24Hr): Vital Signs - 24 hr 03/22/25 20:00 03/22/25 20:09 03/23/25 07:30 Temperature 98.7 F 98.9 F Pulse Rate 118 H 100 Respiratory Rate 17 Blood Pressure 114/71 114/71 94/50 L Pulse Oximetry 99 94 Oxygen Delivery Method Room Air Room Air 03/23/25 07:55 Temperature Pulse Rate Respiratory Rate Blood Pressure 114/62 Pulse Oximetry Oxygen Delivery Method BMI result Body Mass Index 25.8 Labs 03/06/25 12:37 03/21/25 08:01 Imaging Radiology Impressions: ITS Impressions Chest X-Ray 02/18/25 09:58 IMPRESSION: Mild interstitial edema and bilateral pleural effusions, small to moderate volume, similar to slightly worsened since prior exam. Electronically signed by: Hamlet Stephens MD 02/18/2025 10:42 AM EDT Medications Medications Current Medications Acetaminophen (Acetaminophen 325 Mg Tablet) 650 mg PO Q6H PRN PRN Reason: Headache/Pain, Scale 1-10 Last Admin: 03/04/25 12:50 Dose: 325 mg Al Hydroxide/Mg Hydroxide (Magnesium Hydrox/Alum Hydrox 30 Ml Oral.Susp) 30 ml PO Q6H PRN PRN Reason: Heartburn/Nausea Atorvastatin Calcium (Atorvastatin Calcium 10 Mg Tablet) 10 mg PO DAILY [facility] Last Admin: 03/23/25 08:26 Dose: 10 mg Benzocaine (Throat Lozenge, Medicated Lozenge) 1 lozenge MUCOUS MEM Q2H PRN PRN Reason: Sore Throat Benztropine Mesylate (Benztropine Mesylate 0.5 Mg Tablet) 0.5 mg PO BID [facility] Last Admin: 03/23/25 08:26 Dose: 0.5 mg Clonazepam (Clonazepam 0.5 Mg Tablet) 0.25 mg PO BID@0900,1400 [facility] Last Admin: 03/23/25 08:26 Dose: 0.25 mg Cyclobenzaprine HCl (Cyclobenzaprine Hcl 10 Mg Tablet) 10 mg PO TID PRN PRN Reason: Muscle Spasm/aches Last Admin: 03/22/25 20:07 Dose: 10 mg Docusate Sodium (Docusate Sodium 100 Mg Capsule) 100 mg PO DAILY PRN PRN Reason: constipation Last Admin: 03/01/25 09:11 Dose: 100 mg Duloxetine HCl (Duloxetine Hcl 60 Mg Capsule.Dr) 60 mg PO DAILY [facility] Last Admin: 03/23/25 08:26 Dose: 60 mg Famotidine (Famotidine 20 Mg Tablet) 20 mg PO BID [facility] Last Admin: 03/23/25 08:26 Dose: 20 mg Fluticasone Propionate (Fluticasone Propionate Nasal 16 Gm [place]) 2 spray NOSTRIL-B DAILY [facility] Last Admin: 03/23/25 08:27 Dose: 2 spray Gabapentin (Gabapentin 100 Mg Capsule) 200 mg PO TID [facility] Last Admin: 03/23/25 08:26 Dose: 200 mg Hydrocortisone (Hydrocortisone 2.5 % Rectal Cr 30 Gm Tube) 1 appl AR Q6H PRN PRN Reason: Hemorrhoids Hydroxyzine HCl (Hydroxyzine Hcl 25 Mg Tablet) 25 mg PO Q6H PRN PRN Reason: mild anxiety Last Admin: 03/19/25 08:50 Dose: 25 mg [place] Carbonate ([place] Carbonate Er 300 Mg Tablet.Er) 600 mg PO BEDTIME [facility] Last Admin: 03/22/25 20:06 Dose: 600 mg Loratadine (Loratadine 10 Mg Tablet) 10 mg PO DAILY [facility] Last Admin: 03/23/25 08:27 Dose: 10 mg Magnesium Hydroxide (Milk Of Magnesia 30 Ml Oral.Susp) 30 ml PO DAILY PRN PRN Reason: Constipation Last Admin: 03/01/25 17:51 Dose: 30 ml Naproxen (Naproxen 500 Mg Tablet) 500 mg PO BID PRN PRN Reason: Pain (Scale Score 1-3) Last Admin: 03/19/25 21:07 Dose: 500 mg Nicotine Polacrilex (Nicotine Polacrilex 2 Mg Gum) 4 mg BUCCAL Q2H PRN PRN Reason: Nicotine Cravings Omeprazole (Omeprazole 40 Mg Capsule.Dr) 40 mg PO BID@0630,1630 [facility] Last Admin: 03/23/25 06:17 Dose: 40 mg Ondansetron HCl (Ondansetron Odt 4 Mg Tab.Rapdis) 4 mg TRANSLINGU Q8H PRN PRN Reason: Nausea and Vomiting Last Admin: 03/06/25 12:03 Dose: 4 mg Polyethylene Glycol (Polyethylene Glycol 3350 17 Gm Powd.Pack) 17 gm PO DAILY PRN PRN Reason: Constipation Last Admin: 03/01/25 09:56 Dose: 17 gm Polyethylene Glycol (Polyethylene Glycol 3350 17 Gm Powd.Pack) 17 gm PO DAILY SYMONE Last Admin: 03/23/25 08:26 Dose: 17 gm Prazosin HCl (Prazosin Hcl 1 Mg Capsule) 1 mg PO BEDTIME SYMONE; Protocol Last Admin: 03/22/25 20:09 Dose: 1 mg Risperidone (Risperidone Oral [place] 1 Mg/Ml Solution) 3 mg PO BEDTIME SYMONE Last Admin: 03/22/25 20:10 Dose: 3 mg Senna (Sennosides 8.6 Mg Tablet) 17.2 mg PO BEDTIME SYMONE Last Admin: 03/22/25 20:07 Dose: 17.2 mg Allergies Allergies Allergy/AdvReac Type Severity Reaction Status Date / Time No Known Allergies Allergy Verified 02/18/25 07:24 [No Known Allergies*] Assessment & Plan Assessment & Plan (1) MDD (major depressive disorder), recurrent severe, without psychosis: Status: Acute Code(s): F33.2 - Major depressive disorder, recurrent severe without psychotic features (2) Anxiety: Status: Acute Code(s): F41.9 - Anxiety disorder, unspecified Plan 54 year-old female with PMHx of Parkinson's with dyskinesia, metabolic encephalopathy, constipation, ulcerative colitis, GERD, IBS, 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 Patient called 911 saying she was short of breath but here in the ED she talked about wanting to . Patient reports that about a month ago, she stopped going to her therapist due to lack of insurance; she says she does not take medications regularly, runs out of them and does not get refills and has been off of her medications for about 2 months. She says that she was doing overall good enough and that depression would come and go. They however she has been feeling more down, tired of always being in pain. Patient explained contributory factors being chronic pain which says seems to have gotten worse recently (patient names almost every part of her body as painful: headaches, joints, stomach, legs, feet...each toe). Patient reports up until a week ago, she was living on her own in her own apartment but this past week she moved into a alf, saying she needed more support. Over these past few days she became more depressed. Once in the emergency room she says she started to think about ending it... Taking a bunch of pills... Patient explains concretely if I were home I would have done it because I had access to the pills... Here I do not have access to the pills. She reports Hx of SI but has never actually tried to; says usually the feeling passes; reports extreme anxiety since childhood; seems to endorse depressive episodes. -denies AVH or paranoid ideations; she does not know why she is prescribed risperidone -denies drug or alcohol use Formulation/clinical reasoning: Endorses depression and anxiety; has been off her medications which is likely contributory as well as chronic pain though not sure the cause; she says nothing has ever help with her pain before however agrees to start and try gabapentin. Patient with blunted affect and concrete; will seek to rule out ASD. Need collateral Hospital course: 02/21 still feeling down; still thinking of suicide but hopeful not to do it agrees to increase prozac to 40mg; also agrees to increased Gabapentin 300mg TID has not had a BM yet; says chronically has trouble pooping and has been constipated for years -agrees to Mirrilax 02/22 Patient reports that she is still depressed and still feeling suicidal though she reports SI is waning. No bowel movement. No medication side effects and agrees to titration 02/23 says still depressed and still with some SI remaining; agrees to increasing buproprion -still constipated 02/24 says still depressed; still with some SI; talked about anxiety as well. pt says no change in chronic body pain with gabapentin; agrees to titrate 02/25 no change in presentation; still depressed, still w/ some SI. Tried to discuss etiology of depression which she seems to say was sudden and did not have anything to do w/ moving into alf 02/[address] IMPRESSION:. No acute intracranial findings. 03/02 Patient had a tough weekend. There was some concern that she slurred her speech was confused or dizzy. Head CT negative. Today patient says she wants to that she is so sad.. And feels so unhappy. Patient is tearful and endorses SI. She can be hard to understand however when health underwriter mentions this, she apologizes, slows down her speech and is understandable. She says she has pain everywhere from her head to her toes and everywhere in-between. She thinks maybe it was a little better last week and health underwriter mentioned that her gabapentin had been significantly lowered over the weekend possibly out of concern for patient's dizziness. Patient says she has no formal diagnosis for pain. Soldering Machine Tender discussed medication regimen with patient who agreed to discontinue Prozac, discontinue Wellbutrin, which have not seemed to help and instead start on Cymbalta which can help with both anxiety, depression as well as pain. Patient shuffling around and now reporting falls; health underwriter inquired and she agreed she was not falling last week but says it is only change now due to the increase in pain. At this point, changes seem more due to behaviors rather than organic. Given that patient has a history of Parkinson's and for some reason a pain syndrome that seems undiagnosed, Neuro consult placed as well -will consider increasing gabapentin again -add cyclobenzaprine which she has been on in the past -reportedly patient has history of Parkinson's 03/03 Regarding SI, she says it is still remains; however, mood little better today; tolerating cymbalta 60mg and discussed med changes again. She said that Said due to her anxiety she has been a little snippy with people which she says she has talked to her therapist about Patient mentioned visual hallucinations; she explains to health underwriter that says seeing like a painting on the wall, like people walking around... However with further inquiry, this only occurs when she is waking up from sleep and not otherwise. airport utility worker discussed with brother who says that this sounds like behavioral episodes patient has had the past Regarding body pain, she says it is actually a little better. She agrees to retry Flexeril to see if that is helpful. Patient complained of dysuria to nurse and asked for UA but was specific and wanting to be straight cathed. Patient had a significant volume of urine removed and is not sure if this is due to urinary retention or if patient is intentionally avoiding urinating; patient told health underwriter she has intermittent history of urinary retention.. She also has been complaining about constipation however has been refusing laxatives/stool softeners. Soldering Machine Tender discussed this and patient says she has long history of constipation and is worry about taking medications that will cause copious diarrhea, which happened once before when she laxatives. She agreed however that constipation needs to be relieved and said she would take medications. UA pending: unremarkable (bladder scan q shift w/ strait cath for CC>500) 03/04 Patient reports to health underwriter that her mood is a little better and today no SI. Patient also says that her pain is a little bit better today. She is not sure Flexeril helped but agrees to have it scheduled. Patient up walking around the unit today without assistance. Patient remains with urinary retention via bladder scans. Will get consult. Later in the day health underwriter met with patient again who was feeling more distraught and now saying she is not better at all. Patient says she feels marginalized because she has a disability. Discussed chronic pain with patient and her brother who was also present; patient remained vague about this issue and says she has just learned to deal with it; she is agreeing to increasing gabapentin. Also agrees to clonazepam -will 1st add clonazepam 0.5 mg b.i.d.; she has been on in the past and her anxiety seems to be a major contributor to her experience of pain and her ability to walk freely on her own. -will consider increasing gabapentin as well 03/05 pt says little better but still has SI, though she says it remains less. Pain not alleviated by scheduled flexeril. Pt explained she has a long hx of emotional lability. Agrees Clonazepam lowers anxiety, though it makes her tired. At this time she feels it's a welcomed break from anxiety. Also agrees to increase Gabapentin again, since it seemed to be helping, even if it too makes her tired. -still w/ urinary retention; PA recs to increase bladder scan to q6h and cath for CC>350; will monitor and get Urology consult if persists 03/07- Continue plan Urology consult 03/08 mood is lousy...i've been miserable all my life.. pt says the pain is the same pt went to a couple groups but said she didn't get anything out of it. Talked about medications and pt says I think therapy is better than pills... despite lousy mood pt has given some thought about discharge...has showered, is now walking on her own and off 1:1, urinating on her own and not needing straight cath 03/09 Patient says I do not know when asked how she is doing which is somewhat of an improvement from yesterday. She remains out in the milieu, hanging around others though mostly keeping to herself. Walking fine, remains with no residual urine per bladder scan. Discussed aftercare and patient is amenable to day program -patient has improved somewhat but is still overall depressed; will give it another day or so. If she remains down will consider either increasing Cymbalta or retry and Wellbutrin 03/10 pt difficult with which to engage. On inquiry about mood she says i don't know.... She says SI is there a little and that it comes and goes but is fleeting. No change in pain; remains constipated. Does not notice Wellbutrin which is being re-tried. -that said, she remains out of her room, in the milue and though keeping to herself, is not isolating; walking around on her own well -will try once more to increase Gabapentin to address chronic pain; if not effective or not tolerated, may try lyrica 03/11 Patient again says I do not know to how she is feeling. Remains out of her room, attending groups but mostly keeping to herself. Agrees to titration of medications. Denies AVH 03/12 Wellbutrin was increased to 300; will see if this helps; if not will consider possible increase Cymbalta or try another category; will change clonazepam since though helps with anxiety seems to be making patient tired in the afternoon 03/13 Patient remains presenting depressed. Says her mood is lousy and affect downcast. Patient says she has a little SI and says that over the years it comes and goes and will flare at certain times. Discussed medication regimen and patient has never tried lithium but agrees to try it now since Wellbutrin has not seem to help much. -ECT? 03/14 Patient noticeably brighter today and more social, engaged, sitting and interacting with peers. She says her mood is ok which is an improvement. Patient told nurse that she was having trouble walking and needed assistance however nurse gently challenged patient having just witnessed her walking around the milieu without any trouble. Patient did not contest -Discussed risks/side effects of lithium and patient agrees to continue 03/15 Patient reports that today she is lousy though she overall remains more interactive. Patient agrees with increase of lithium. She asks if she could see a neurologist to see if she needs a brain scan and health underwriter discuss this. Patient is brother shared that patient used to be much more independent, living on her own, driving, holding down a job; however this was over a decade ago. She ended up living with her mother and patient's brother thinks she just got use to being taken care of. He says she has always been depressed for most of her life and was pretty lonely, never really had friends. Never got diagnosed with ASD but there was discussion of it. She did graduate high school he thinks in regular classes. 03/16 Patient reports that she is doing all right... And says she is without any SI and no longer thinking at all about overdosing on medication. Discussed lithium and she agrees to increase and to see if it is effective. -not sure what to make of intermittent visual hallucinations; they occur at night seemingly when she is waking or falling asleep. 03/18: Active on unit, keeping to self. attending groups. pt reports feeling depressed ; she reports suicidal ideation comes and goes . denies HI/AH. Pt reports visual hallucinations, reporting they are nothing violent ; she did not go into further detail. States she did not have nightmares last night; per nursing, slept 8 hours last night. Continue current tx plan. 03/23 remained stable, brighter; lithium level WNL; associated labs WNL. Patient engaged in dispo planning. Plan: CV Q 15 minute checks Increased to lithium ER 600 mg q.h.s.; health underwriter reviewed risks/side effects of this medication and she agrees DC Wellbutrin XL has not helped Continue gabapentin 200 mg t.i.d. for chronic pain (reviewed risks/side-effects) Lowered Clonazepam 0.25 mg b.i.d. for anxiety; has been on in the past Swich to PRN Cyclobenzaprine 10 mg t.i.d.prn (with p.r.n.; patient has been on as high doses 20 mg) Continue Cymbalta 60 mg DC fluoxetine famotidine 20 mg b.i.d.; patient says she has chronic GERD risperidone 3 mg q.h.s. prazosin 1 mg q.h.s. Cogentin 0.5 mg b.i.d. Ordered H pylori antigen stool test (patient has refused to comply); patient says she has had intractable GERD for a long time; has never been tested for H pylori Regarding [place], Risks, side-effects and benefits reviewed with pt, including, but not limited to, damage to kidneys and thyroid; pt was educated on symptoms of lithium toxicity (also discussed, including but not limited to gait, tremor, confusion) and the need to stay away from OTC NSAIDs (specifics reviewed) aside from Tylenol. Patient educated on: diagnosis and medication risk/benefits Informed Consent: understands Reason for continued inpatient stay Substantial Risk for: stable for discharge Time Spent With Patient Time: Total time managing care of this patient today ____ minutes.
[2025-03-23 20:00] VITALS: BP 119/68; PULSE 119; TEMP 37.1; O2SAT 99
[2025-03-23] MEDS: risperiDONE Oral Sol 1 MG/ML SOLUTION 3 MG PO (22:06)
[2025-03-23] MEDS: Sennosides 8.6 MG TABLET 17.2 MG PO (22:08)
[2025-03-23] MEDS: Lithium Carbonate ER 300 MG TABLET.ER 600 MG PO (22:09)
[2025-03-23] MEDS: Prazosin HCL 1 MG CAPSULE PO (22:10)
[2025-03-23] MEDS: Cyclobenzaprine HCl 10 MG TABLET PO (22:17)
[2025-03-23] MEDS: NaPROXEN 500 MG TABLET PO (22:19)
[2025-03-24] MEDS: Omeprazole 40 MG CAPSULE.DR PO ×2 (07:14→17:01)
[2025-03-24 08:00] VITALS: BP 103/61; PULSE 97; TEMP 36.6; O2SAT 95
[2025-03-24] MEDS: Fluticasone Propionate Nasal 16 GM SPRAY 2 SPRAY NOSTRIL-B (08:33)
[2025-03-24] MEDS: Loratadine 10 MG TABLET PO (08:34)
[2025-03-24] MEDS: Famotidine 20 MG TABLET PO ×2 (08:34→20:11)
[2025-03-24] MEDS: clonazePAM 0.5 MG TABLET 0.25 MG PO ×2 (08:34→15:08)
[2025-03-24] MEDS: Benztropine Mesylate 0.5 MG TABLET PO ×2 (08:34→20:11)
[2025-03-24] MEDS: Atorvastatin Calcium 10 MG TABLET PO (08:34)
[2025-03-24] MEDS: Gabapentin 100 MG CAPSULE 200 MG PO ×3 (08:35→20:10)
[2025-03-24] MEDS: DULoxetine HCl 60 MG CAPSULE.DR PO (08:35)
--- NOTE | 2025-03-24 17:16 | HO.PSYCHPN ---
Subjective Subjective Date of Service: 03/24/25 Reason For Visit: Depression Interim History: Met with patient; discussed with team Patient reports continued acid reflux; says it is just too difficult for her to defecate in the had for stool antigen test. Understands this is the current option; says this is chronic for her and she has accepted it; discussed body pain and says she has learned to live with it Mental Status Exam Mental Status Exam Narrative: Pt is alert and oriented; behavior is more calm, more social and is more engaged with others, on her own walking around; dressed in hospital pants, casual top with adequate hygiene; glasses, appears older than chronological age; mood is described as alright...ok and affect remains overall brighter; eye contact a little avoidant (baseline); Speech is mumbled (which is baseline) but she can slow down and articulate; normal volume; some psychomotor retardation present; thought process is goal directed, concrete; Thought content is on dealing with pain and depression; no delusional ideations expressed; no SI; no HI; patient reports intermittent VH that does not bother her; Patients insight and judgment adequate and at baseline Diagnostics Vital Signs (24Hr): Vital Signs - 24 hr 03/23/25 20:00 03/24/25 08:00 Temperature 98.8 F 97.9 F Pulse Rate 119 H 97 Blood Pressure 119/68 103/61 Pulse Oximetry 99 95 Oxygen Delivery Method Room Air Room Air BMI result Body Mass Index 25.8 Labs 03/06/25 12:37 03/21/25 08:01 Imaging Radiology Impressions: ITS Impressions Chest X-Ray 02/18/25 09:58 IMPRESSION: Mild interstitial edema and bilateral pleural effusions, small to moderate volume, similar to slightly worsened since prior exam. Electronically signed by: Hamlet Stephens MD 02/18/2025 10:42 AM EDT Medications Medications Current Medications Acetaminophen (Acetaminophen 325 Mg Tablet) 650 mg PO Q6H PRN PRN Reason: Headache/Pain, Scale 1-10 Last Admin: 03/04/25 12:50 Dose: 325 mg Al Hydroxide/Mg Hydroxide (Magnesium Hydrox/Alum Hydrox 30 Ml Oral.Susp) 30 ml PO Q6H PRN PRN Reason: Heartburn/Nausea Atorvastatin Calcium (Atorvastatin Calcium 10 Mg Tablet) 10 mg PO DAILY [facility] Last Admin: 03/24/25 08:34 Dose: 10 mg Benzocaine (Throat Lozenge, Medicated Lozenge) 1 lozenge MUCOUS MEM Q2H PRN PRN Reason: Sore Throat Benztropine Mesylate (Benztropine Mesylate 0.5 Mg Tablet) 0.5 mg PO BID [facility] Last Admin: 03/24/25 08:34 Dose: 0.5 mg Clonazepam (Clonazepam 0.5 Mg Tablet) 0.25 mg PO BID@0900,1400 [facility] Last Admin: 03/24/25 15:08 Dose: 0.25 mg Cyclobenzaprine HCl (Cyclobenzaprine Hcl 10 Mg Tablet) 10 mg PO TID PRN PRN Reason: Muscle Spasm/aches Last Admin: 03/23/25 22:17 Dose: 10 mg Docusate Sodium (Docusate Sodium 100 Mg Capsule) 100 mg PO DAILY PRN PRN Reason: constipation Last Admin: 03/01/25 09:11 Dose: 100 mg Duloxetine HCl (Duloxetine Hcl 60 Mg Capsule.Dr) 60 mg PO DAILY [facility] Last Admin: 03/24/25 08:35 Dose: 60 mg Famotidine (Famotidine 20 Mg Tablet) 20 mg PO BID [facility] Last Admin: 03/24/25 08:34 Dose: 20 mg Fluticasone Propionate (Fluticasone Propionate Nasal 16 Gm [place]) 2 spray NOSTRIL-B DAILY [facility] Last Admin: 03/24/25 08:33 Dose: 2 spray Gabapentin (Gabapentin 100 Mg Capsule) 200 mg PO TID [facility] Last Admin: 03/24/25 15:08 Dose: 200 mg Hydrocortisone (Hydrocortisone 2.5 % Rectal Cr 30 Gm Tube) 1 appl HI Q6H PRN PRN Reason: Hemorrhoids Hydroxyzine HCl (Hydroxyzine Hcl 25 Mg Tablet) 25 mg PO Q6H PRN PRN Reason: mild anxiety Last Admin: 03/19/25 08:50 Dose: 25 mg [place] Carbonate ([place] Carbonate Er 300 Mg Tablet.Er) 600 mg PO BEDTIME [facility] Last Admin: 03/23/25 22:09 Dose: 600 mg Loratadine (Loratadine 10 Mg Tablet) 10 mg PO DAILY [facility] Last Admin: 03/24/25 08:34 Dose: 10 mg Magnesium Hydroxide (Milk Of Magnesia 30 Ml Oral.Susp) 30 ml PO DAILY PRN PRN Reason: Constipation Last Admin: 03/01/25 17:51 Dose: 30 ml Naproxen (Naproxen 500 Mg Tablet) 500 mg PO BID PRN PRN Reason: Pain (Scale Score 1-3) Last Admin: 03/23/25 22:19 Dose: 500 mg Nicotine Polacrilex (Nicotine Polacrilex 2 Mg Gum) 4 mg BUCCAL Q2H PRN PRN Reason: Nicotine Cravings Omeprazole (Omeprazole 40 Mg Capsule.Dr) 40 mg PO BID@0630,1630 [facility] Last Admin: 03/24/25 17:01 Dose: 40 mg Ondansetron HCl (Ondansetron Odt 4 Mg Tab.Rapdis) 4 mg TRANSLINGU Q8H PRN PRN Reason: Nausea and Vomiting Last Admin: 03/06/25 12:03 Dose: 4 mg Polyethylene Glycol (Polyethylene Glycol 3350 17 Gm Powd.Pack) 17 gm PO DAILY PRN PRN Reason: Constipation Last Admin: 03/01/25 09:56 Dose: 17 gm Polyethylene Glycol (Polyethylene Glycol 3350 17 Gm Powd.Pack) 17 gm PO DAILY SYMONE Last Admin: 03/24/25 08:37 Dose: Not Given Prazosin HCl (Prazosin Hcl 1 Mg Capsule) 1 mg PO BEDTIME SY[place]ONE; Protocol Last Admin: 03/23/25 22:10 Dose: 1 mg Risperidone (Risperidone Oral [place] 1 Mg/Ml Solution) 3 mg PO BEDTIME SYMONE Last Admin: 03/23/25 22:06 Dose: 3 mg Senna (Sennosides 8.6 Mg Tablet) 17.2 mg PO BEDTIME SYMONE Last Admin: 03/23/25 22:08 Dose: 17.2 mg Allergies Allergies Allergy/AdvReac Type Severity Reaction Status Date / Time No Known Allergies Allergy Verified 02/18/25 07:24 [No Known Allergies*] Assessment & Plan Assessment & Plan (1) MDD (major depressive disorder), recurrent severe, without psychosis: Status: Acute Code(s): F33.2 - Major depressive disorder, recurrent severe without psychotic features (2) Anxiety: Status: Acute Code(s): F41.9 - Anxiety disorder, unspecified Plan 54 year-old female with PMHx of Parkinson's with dyskinesia, metabolic encephalopathy, constipation, ulcerative colitis, GERD, IBS, 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 Patient called 911 saying she was short of breath but here in the ED she talked about wanting to . Patient reports that about a month ago, she stopped going to her therapist due to lack of insurance; she says she does not take medications regularly, runs out of them and does not get refills and has been off of her medications for about 2 months. She says that she was doing overall good enough and that depression would come and go. They however she has been feeling more down, tired of always being in pain. Patient explained contributory factors being chronic pain which says seems to have gotten worse recently (patient names almost every part of her body as painful: headaches, joints, stomach, legs, feet...each toe). Patient reports up until a week ago, she was living on her own in her own apartment but this past week she moved into a prison, saying she needed more support. Over these past few days she became more depressed. Once in the emergency room she says she started to think about ending it... Taking a bunch of pills... Patient explains concretely if I were home I would have done it because I had access to the pills... Here I do not have access to the pills. She reports Hx of SI but has never actually tried to; says usually the feeling passes; reports extreme anxiety since childhood; seems to endorse depressive episodes. -denies AVH or paranoid ideations; she does not know why she is prescribed risperidone -denies drug or alcohol use Formulation/clinical reasoning: Endorses depression and anxiety; has been off her medications which is likely contributory as well as chronic pain though not sure the cause; she says nothing has ever help with her pain before however agrees to start and try gabapentin. Patient with blunted affect and concrete; will seek to rule out ASD. Need collateral Hospital course: 02/21 still feeling down; still thinking of suicide but hopeful not to do it agrees to increase prozac to 40mg; also agrees to increased Gabapentin 300mg TID has not had a BM yet; says chronically has trouble pooping and has been constipated for years -agrees to Mirrilax 02/22 Patient reports that she is still depressed and still feeling suicidal though she reports SI is waning. No bowel movement. No medication side effects and agrees to titration 02/23 says still depressed and still with some SI remaining; agrees to increasing buproprion -still constipated 02/24 says still depressed; still with some SI; talked about anxiety as well. pt says no change in chronic body pain with gabapentin; agrees to titrate 02/25 no change in presentation; still depressed, still w/ some SI. Tried to discuss etiology of depression which she seems to say was sudden and did not have anything to do w/ moving into prison 02/[address] IMPRESSION:. No acute intracranial findings. 03/02 Patient had a tough weekend. There was some concern that she slurred her speech was confused or dizzy. Head CT negative. Today patient says she wants to that she is so sad.. And feels so unhappy. Patient is tearful and endorses SI. She can be hard to understand however when technical publications writer mentions this, she apologizes, slows down her speech and is understandable. She says she has pain everywhere from her head to her toes and everywhere in-between. She thinks maybe it was a little better last week and technical publications writer mentioned that her gabapentin had been significantly lowered over the weekend possibly out of concern for patient's dizziness. Patient says she has no formal diagnosis for pain. Service Tech discussed medication regimen with patient who agreed to discontinue Prozac, discontinue Wellbutrin, which have not seemed to help and instead start on Cymbalta which can help with both anxiety, depression as well as pain. Patient shuffling around and now reporting falls; technical publications writer inquired and she agreed she was not falling last week but says it is only change now due to the increase in pain. At this point, changes seem more due to behaviors rather than organic. Given that patient has a history of Parkinson's and for some reason a pain syndrome that seems undiagnosed, Neuro consult placed as well -will consider increasing gabapentin again -add cyclobenzaprine which she has been on in the past -reportedly patient has history of Parkinson's 03/03 Regarding SI, she says it is still remains; however, mood little better today; tolerating cymbalta 60mg and discussed med changes again. She said that Said due to her anxiety she has been a little snippy with people which she says she has talked to her therapist about Patient mentioned visual hallucinations; she explains to technical publications writer that says seeing like a painting on the wall, like people walking around... However with further inquiry, this only occurs when she is waking up from sleep and not otherwise. wire worker discussed with brother who says that this sounds like behavioral episodes patient has had the past Regarding body pain, she says it is actually a little better. She agrees to retry Flexeril to see if that is helpful. Patient complained of dysuria to nurse and asked for UA but was specific and wanting to be straight cathed. Patient had a significant volume of urine removed and is not sure if this is due to urinary retention or if patient is intentionally avoiding urinating; patient told technical publications writer she has intermittent history of urinary retention.. She also has been complaining about constipation however has been refusing laxatives/stool softeners. Service Tech discussed this and patient says she has long history of constipation and is worry about taking medications that will cause copious diarrhea, which happened once before when she laxatives. She agreed however that constipation needs to be relieved and said she would take medications. UA pending: unremarkable (bladder scan q shift w/ strait cath for CC>500) 03/04 Patient reports to technical publications writer that her mood is a little better and today no SI. Patient also says that her pain is a little bit better today. She is not sure Flexeril helped but agrees to have it scheduled. Patient up walking around the unit today without assistance. Patient remains with urinary retention via bladder scans. Will get consult. Later in the day technical publications writer met with patient again who was feeling more distraught and now saying she is not better at all. Patient says she feels marginalized because she has a disability. Discussed chronic pain with patient and her brother who was also present; patient remained vague about this issue and says she has just learned to deal with it; she is agreeing to increasing gabapentin. Also agrees to clonazepam -will 1st add clonazepam 0.5 mg b.i.d.; she has been on in the past and her anxiety seems to be a major contributor to her experience of pain and her ability to walk freely on her own. -will consider increasing gabapentin as well 03/05 pt says little better but still has SI, though she says it remains less. Pain not alleviated by scheduled flexeril. Pt explained she has a long hx of emotional lability. Agrees Clonazepam lowers anxiety, though it makes her tired. At this time she feels it's a welcomed break from anxiety. Also agrees to increase Gabapentin again, since it seemed to be helping, even if it too makes her tired. -still w/ urinary retention; PA recs to increase bladder scan to q6h and cath for CC>350; will monitor and get Urology consult if persists 03/07- Continue plan Urology consult 03/08 mood is lousy...i've been miserable all my life.. pt says the pain is the same pt went to a couple groups but said she didn't get anything out of it. Talked about medications and pt says I think therapy is better than pills... despite lousy mood pt has given some thought about discharge...has showered, is now walking on her own and off 1:1, urinating on her own and not needing straight cath 03/09 Patient says I do not know when asked how she is doing which is somewhat of an improvement from yesterday. She remains out in the milieu, hanging around others though mostly keeping to herself. Walking fine, remains with no residual urine per bladder scan. Discussed aftercare and patient is amenable to day program -patient has improved somewhat but is still overall depressed; will give it another day or so. If she remains down will consider either increasing Cymbalta or retry and Wellbutrin 03/10 pt difficult with which to engage. On inquiry about mood she says i don't know.... She says SI is there a little and that it comes and goes but is fleeting. No change in pain; remains constipated. Does not notice Wellbutrin which is being re-tried. -that said, she remains out of her room, in the milue and though keeping to herself, is not isolating; walking around on her own well -will try once more to increase Gabapentin to address chronic pain; if not effective or not tolerated, may try lyrica 03/11 Patient again says I do not know to how she is feeling. Remains out of her room, attending groups but mostly keeping to herself. Agrees to titration of medications. Denies AVH 03/12 Wellbutrin was increased to 300; will see if this helps; if not will consider possible increase Cymbalta or try another category; will change clonazepam since though helps with anxiety seems to be making patient tired in the afternoon 03/13 Patient remains presenting depressed. Says her mood is lousy and affect downcast. Patient says she has a little SI and says that over the years it comes and goes and will flare at certain times. Discussed medication regimen and patient has never tried lithium but agrees to try it now since Wellbutrin has not seem to help much. -ECT? 03/14 Patient noticeably brighter today and more social, engaged, sitting and interacting with peers. She says her mood is ok which is an improvement. Patient told nurse that she was having trouble walking and needed assistance however nurse gently challenged patient having just witnessed her walking around the milieu without any trouble. Patient did not contest -Discussed risks/side effects of lithium and patient agrees to continue 03/15 Patient reports that today she is lousy though she overall remains more interactive. Patient agrees with increase of lithium. She asks if she could see a neurologist to see if she needs a brain scan and technical publications writer discuss this. Patient is brother shared that patient used to be much more independent, living on her own, driving, holding down a job; however this was over a decade ago. She ended up living with her mother and patient's brother thinks she just got use to being taken care of. He says she has always been depressed for most of her life and was pretty lonely, never really had friends. Never got diagnosed with ASD but there was discussion of it. She did graduate high school he thinks in regular classes. 03/16 Patient reports that she is doing all right... And says she is without any SI and no longer thinking at all about overdosing on medication. Discussed lithium and she agrees to increase and to see if it is effective. -not sure what to make of intermittent visual hallucinations; they occur at night seemingly when she is waking or falling asleep. 03/18: Active on unit, keeping to self. attending groups. pt reports feeling depressed ; she reports suicidal ideation comes and goes . denies HI/AH. Pt reports visual hallucinations, reporting they are nothing violent ; she did not go into further detail. States she did not have nightmares last night; per nursing, slept 8 hours last night. Continue current tx plan. 03/23 remained stable, brighter; lithium level WNL; associated labs WNL. Patient engaged in dispo planning. Plan: CV Q 15 minute checks Increased to lithium ER 600 mg q.h.s.; technical publications writer reviewed risks/side effects of this medication and she agrees DC Wellbutrin XL has not helped Continue gabapentin 200 mg t.i.d. for chronic pain (reviewed risks/side-effects) Lowered Clonazepam 0.25 mg b.i.d. for anxiety; has been on in the past Swich to PRN Cyclobenzaprine 10 mg t.i.d.prn (with p.r.n.; patient has been on as high doses 20 mg) Continue Cymbalta 60 mg DC fluoxetine famotidine 20 mg b.i.d.; patient says she has chronic GERD risperidone 3 mg q.h.s. prazosin 1 mg q.h.s. Cogentin 0.5 mg b.i.d. Ordered H pylori antigen stool test (patient has refused to comply); patient says she has had intractable GERD for a long time; has never been tested for H pylori Regarding [place], Risks, side-effects and benefits reviewed with pt, including, but not limited to, damage to kidneys and thyroid; pt was educated on symptoms of lithium toxicity (also discussed, including but not limited to gait, tremor, confusion) and the need to stay away from OTC NSAIDs (specifics reviewed) aside from Tylenol. Patient educated on: diagnosis and medical condition Informed Consent: understands Reason for continued inpatient stay Substantial Risk for: stable for discharge Time Spent With Patient Time: Total time managing care of this patient today ____ minutes.
[2025-03-24 19:51] VITALS: BP 117/64; PULSE 112; RESP 15; TEMP 36.9; O2SAT 98
[2025-03-24] MEDS: Sennosides 8.6 MG TABLET 17.2 MG PO (20:10)
[2025-03-24] MEDS: Lithium Carbonate ER 300 MG TABLET.ER 600 MG PO (20:10)
[2025-03-24] MEDS: Prazosin HCL 1 MG CAPSULE PO (20:10)
[2025-03-24] MEDS: risperiDONE Oral Sol 1 MG/ML SOLUTION 3 MG PO (20:11)
[2025-03-24] MEDS: NaPROXEN 500 MG TABLET PO (20:11)
[2025-03-24] MEDS: Cyclobenzaprine HCl 10 MG TABLET PO (20:11)
[2025-03-25] MEDS: Omeprazole 40 MG CAPSULE.DR PO ×2 (06:52→18:20)
[2025-03-25 08:00] VITALS: BP 118/71; PULSE 115; RESP 20; TEMP 37.1; O2SAT 95
[2025-03-25] MEDS: DULoxetine HCl 60 MG CAPSULE.DR PO (08:47)
[2025-03-25] MEDS: Loratadine 10 MG TABLET PO (08:47)
[2025-03-25] MEDS: Benztropine Mesylate 0.5 MG TABLET PO ×2 (08:47→22:19)
[2025-03-25] MEDS: Gabapentin 100 MG CAPSULE 200 MG PO ×3 (08:47→22:19)
[2025-03-25] MEDS: clonazePAM 0.5 MG TABLET 0.25 MG PO ×2 (08:48→14:26)
[2025-03-25] MEDS: Famotidine 20 MG TABLET PO ×2 (08:48→22:18)
[2025-03-25] MEDS: Atorvastatin Calcium 10 MG TABLET PO (08:48)
[2025-03-25] MEDS: Fluticasone Propionate Nasal 16 GM SPRAY 2 SPRAY NOSTRIL-B (08:49)
[2025-03-25] MEDS: polyethylene glycoL 3350 17 GM POWD.PACK PO (08:49)
[2025-03-25 20:00] VITALS: BP 126/74; PULSE 84; TEMP 36.6; O2SAT 97
[2025-03-25 22:10] VITALS: BP 110/67; PULSE 99; TEMP 37; O2SAT 99
[2025-03-25] MEDS: Cyclobenzaprine HCl 10 MG TABLET PO (22:15)
[2025-03-25] MEDS: NaPROXEN 500 MG TABLET PO (22:16)
[2025-03-25] MEDS: Sennosides 8.6 MG TABLET 17.2 MG PO (22:17)
[2025-03-25] MEDS: Lithium Carbonate ER 300 MG TABLET.ER 600 MG PO (22:17)
[2025-03-25 22:18] VITALS: BP 110/67
[2025-03-25] MEDS: Prazosin HCL 1 MG CAPSULE PO (22:18)
[2025-03-25] MEDS: risperiDONE Oral Sol 1 MG/ML SOLUTION 3 MG PO (22:21)
--- NOTE | 2025-03-25 22:41 | P.PNPSI_ITS ---
Subjective Subjective Date of Service: 03/25/25 Reason For Visit: Depression Diagnostics Vital Signs (24Hr): Vital Signs - 24 hr 03/25/25 08:00 03/25/25 22:18 Temperature 98.7 F Pulse Rate 115 H Respiratory Rate 20 Blood Pressure 118/71 110/67 Pulse Oximetry 95 Oxygen Delivery Method Room Air BMI result Body Mass Index 25.8 Labs 03/06/25 12:37 03/21/25 08:01 Imaging Radiology Impressions: ITS Impressions Chest X-Ray 02/18/25 09:58 IMPRESSION: Mild interstitial edema and bilateral pleural effusions, small to moderate volume, similar to slightly worsened since prior exam. Electronically signed by: Hamlet Stephens MD 02/18/2025 10:42 AM EDT RP Medications Medications Current Medications Acetaminophen (Acetaminophen 325 Mg Tablet) 650 mg PO Q6H PRN PRN Reason: Headache/Pain, Scale 1-10 Last Admin: 03/04/25 12:50 Dose: 325 mg Al Hydroxide/Mg Hydroxide (Magnesium Hydrox/Alum Hydrox 30 Ml Oral.Susp) 30 ml PO Q6H PRN PRN Reason: Heartburn/Nausea Atorvastatin Calcium (Atorvastatin Calcium 10 Mg Tablet) 10 mg PO DAILY [facility] Last Admin: 03/25/25 08:48 Dose: 10 mg Benzocaine (Throat Lozenge, Medicated Lozenge) 1 lozenge MUCOUS MEM Q2H PRN PRN Reason: Sore Throat Benztropine Mesylate (Benztropine Mesylate 0.5 Mg Tablet) 0.5 mg PO BID [facility] Last Admin: 03/25/25 22:19 Dose: 0.5 mg Clonazepam (Clonazepam 0.5 Mg Tablet) 0.25 mg PO BID@0900,1400 [facility] Last Admin: 03/25/25 14:26 Dose: 0.25 mg Cyclobenzaprine HCl (Cyclobenzaprine Hcl 10 Mg Tablet) 10 mg PO TID PRN PRN Reason: Muscle Spasm/aches Last Admin: 03/25/25 22:15 Dose: 10 mg Docusate Sodium (Docusate Sodium 100 Mg Capsule) 100 mg PO DAILY PRN PRN Reason: constipation Last Admin: 03/01/25 09:11 Dose: 100 mg Duloxetine HCl (Duloxetine Hcl 60 Mg Capsule.Dr) 60 mg PO DAILY [facility] Last Admin: 03/25/25 08:47 Dose: 60 mg Famotidine (Famotidine 20 Mg Tablet) 20 mg PO BID [facility] Last Admin: 03/25/25 22:18 Dose: 20 mg Fluticasone Propionate (Fluticasone Propionate Nasal 16 Gm Henderson) 2 spray NOSTRIL-B DAILY [facility] Last Admin: 03/25/25 08:49 Dose: 2 spray Gabapentin (Gabapentin 100 Mg Capsule) 200 mg PO TID [facility] Last Admin: 03/25/25 22:19 Dose: 200 mg Hydrocortisone (Hydrocortisone 2.5 % Rectal Cr 30 Gm Tube) [address] Q6H PRN PRN Reason: Hemorrhoids Hydroxyzine HCl (Hydroxyzine Hcl 25 Mg Tablet) 25 mg PO Q6H PRN PRN Reason: mild anxiety Last Admin: 03/19/25 08:50 Dose: 25 mg Stollings Carbonate (Stollings Carbonate Er 300 Mg Tablet.Er) 600 mg PO BEDTIME [facility] Last Admin: 03/25/25 22:17 Dose: 600 mg Loratadine (Loratadine 10 Mg Tablet) 10 mg PO DAILY [facility] Last Admin: 03/25/25 08:47 Dose: 10 mg Magnesium Hydroxide (Milk Of Magnesia 30 Ml Oral.Susp) 30 ml PO DAILY PRN PRN Reason: Constipation Last Admin: 03/01/25 17:51 Dose: 30 ml Naproxen (Naproxen 500 Mg Tablet) 500 mg PO BID PRN PRN Reason: Pain (Scale Score 1-3) Last Admin: 03/25/25 22:16 Dose: 500 mg Nicotine Polacrilex (Nicotine Polacrilex 2 Mg Gum) 4 mg BUCCAL Q2H PRN PRN Reason: Nicotine Cravings Omeprazole (Omeprazole 40 Mg Capsule.Dr) 40 mg PO BID@0630,1630 [facility] Last Admin: 03/25/25 18:20 Dose: 40 mg Ondansetron HCl (Ondansetron Odt 4 Mg Tab.Rapdis) 4 mg TRANSLINGU Q8H PRN PRN Reason: Nausea and Vomiting Last Admin: 03/06/25 12:03 Dose: 4 mg Polyethylene Glycol (Polyethylene Glycol 3350 17 Gm Powd.Pack) 17 gm PO DAILY PRN PRN Reason: Constipation Last Admin: 03/01/25 09:56 Dose: 17 gm Polyethylene Glycol (Polyethylene Glycol 3350 17 Gm Powd.Pack) 17 gm PO DAILY [facility] Last Admin: 03/25/25 08:49 Dose: 17 gm Prazosin HCl (Prazosin Hcl 1 Mg Capsule) 1 mg PO BEDTIME [facility]; Protocol Last Admin: 03/25/25 22:18 Dose: 1 mg Risperidone (Risperidone Oral Lindsay 1 Mg/Ml Solution) 3 mg PO BEDTIME [facility] Last Admin: 03/25/25 22:21 Dose: 3 mg Senna (Sennosides 8.6 Mg Tablet) 17.2 mg PO BEDTIME [facility] Last Admin: 03/25/25 22:17 Dose: 17.2 mg Allergies Allergies Allergy/AdvReac Type Severity Reaction Status Date / Time No Known Allergies Allergy Verified 02/18/25 07:24 [No Known Allergies*] Assessment & Plan Assessment & Plan (1) MDD (major depressive disorder), recurrent severe, without psychosis: Status: Acute Code(s): F33.2 - Major depressive disorder, recurrent severe without psychotic features (2) Anxiety: Status: Acute Code(s): F41.9 - Anxiety disorder, unspecified Plan 54 year-old female with PMHx of Parkinson's with dyskinesia, metabolic encephalopathy, constipation, ulcerative colitis, GERD, IBS, 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 Patient called 911 saying she was short of breath but here in the ED she talked about wanting to . Patient reports that about a month ago, she stopped going to her therapist due to lack of insurance; she says she does not take medications regularly, runs out of them and does not get refills and has been off of her medications for about 2 months. She says that she was doing overall good enough and that depression would come and go. They however she has been feeling more down, tired of always being in pain. Patient explained contributory factors being chronic pain which says seems to have gotten worse recently (patient names almost every part of her body as painful: headaches, joints, stomach, legs, feet...each toe). Patient reports up until a week ago, she was living on her own in her own apartment but this past week she moved into a [facility], saying she needed more support. Over these past few days she became more depressed. Once in the emergency room she says she started to think about ending it... Taking a bunch of pills... Patient explains concretely if I were home I would have done it because I had access to the pills... Here I do not have access to the pills. She reports Hx of SI but has never actually tried to; says usually the feeling passes; reports extreme anxiety since childhood; seems to endorse depressive episodes. -denies AVH or paranoid ideations; she does not know why she is prescribed risperidone -denies drug or alcohol use Formulation/clinical reasoning: Endorses depression and anxiety; has been off her medications which is likely contributory as well as chronic pain though not sure the cause; she says nothing has ever help with her pain before however agrees to start and try gabapentin. Patient with blunted affect and concrete; will seek to rule out ASD. Need collateral Hospital course: 02/21 still feeling down; still thinking of suicide but hopeful not to do it agrees to increase prozac to 40mg; also agrees to increased Gabapentin 300mg TID has not had a BM yet; says chronically has trouble pooping and has been constipated for years -agrees to Mirrilax 02/22 Patient reports that she is still depressed and still feeling suicidal though she reports SI is waning. No bowel movement. No medication side effects and agrees to titration 02/23 says still depressed and still with some SI remaining; agrees to increasing buproprion -still constipated 02/24 says still depressed; still with some SI; talked about anxiety as well. pt says no change in chronic body pain with gabapentin; agrees to titrate 02/25 no change in presentation; still depressed, still w/ some SI. Tried to discuss etiology of depression which she seems to say was sudden and did not have anything to do w/ moving into [facility] 02/[address] IMPRESSION:. No acute intracranial findings. 03/02 Patient had a tough weekend. There was some concern that she slurred her speech was confused or dizzy. Head CT negative. Today patient says she wants to that she is so sad.. And feels so unhappy. Patient is tearful and endorses SI. She can be hard to understand however when creative services writer mentions this, she apologizes, slows down her speech and is understandable. She says she has pain everywhere from her head to her toes and everywhere in-between. She thinks maybe it was a little better last week and creative services writer mentioned that her gabapentin had been significantly lowered over the weekend possibly out of concern for patient's dizziness. Patient says she has no formal diagnosis for pain. Welding Machine Operator Thermit discussed medication regimen with patient who agreed to discontinue Prozac, discontinue Wellbutrin, which have not seemed to help and instead start on Cymbalta which can help with both anxiety, depression as well as pain. Patient shuffling around and now reporting falls; creative services writer inquired and she agreed she was not falling last week but says it is only change now due to the increase in pain. At this point, changes seem more due to behaviors rather than organic. Given that patient has a history of Parkinson's and for some reason a pain syndrome that seems undiagnosed, Neuro consult placed as well -will consider increasing gabapentin again -add cyclobenzaprine which she has been on in the past -reportedly patient has history of Parkinson's 03/03 Regarding SI, she says it is still remains; however, mood little better today; tolerating cymbalta 60mg and discussed med changes again. She said that Said due to her anxiety she has been a little snippy with people which she says she has talked to her therapist about Patient mentioned visual hallucinations; she explains to creative services writer that says seeing like a painting on the wall, like people walking around... However with further inquiry, this only occurs when she is waking up from sleep and not otherwise. paste worker discussed with brother who says that this sounds like behavioral episodes patient has had the past Regarding body pain, she says it is actually a little better. She agrees to retry Flexeril to see if that is helpful. Patient complained of dysuria to nurse and asked for UA but was specific and wanting to be straight cathed. Patient had a significant volume of urine removed and is not sure if this is due to urinary retention or if patient is intentionally avoiding urinating; patient told creative services writer she has intermittent history of urinary retention.. She also has been complaining about constipation however has been refusing laxatives/stool softeners. Welding Machine Operator Thermit discussed this and patient says she has long history of constipation and is worry about taking medications that will cause copious diarrhea, which happened once before when she laxatives. She agreed however that constipation needs to be relieved and said she would take medications. UA pending: unremarkable (bladder scan q shift w/ strait cath for CC>500) 03/04 Patient reports to creative services writer that her mood is a little better and today no SI. Patient also says that her pain is a little bit better today. She is not sure Flexeril helped but agrees to have it scheduled. Patient up walking around the unit today without assistance. Patient remains with urinary retention via bladder scans. Will get consult. Later in the day creative services writer met with patient again who was feeling more distraught and now saying she is not better at all. Patient says she feels marginalized because she has a disability. Discussed chronic pain with patient and her brother who was also present; patient remained vague about this issue and says she has just learned to deal with it; she is agreeing to increasing gabapentin. Also agrees to clonazepam -will 1st add clonazepam 0.5 mg b.i.d.; she has been on in the past and her anxiety seems to be a major contributor to her experience of pain and her ability to walk freely on her own. -will consider increasing gabapentin as well 03/05 pt says little better but still has SI, though she says it remains less. Pain not alleviated by scheduled flexeril. Pt explained she has a long hx of emotional lability. Agrees Clonazepam lowers anxiety, though it makes her tired. At this time she feels it's a welcomed break from anxiety. Also agrees to increase Gabapentin again, since it seemed to be helping, even if it too makes her tired. -still w/ urinary retention; PA recs to increase bladder scan to q6h and cath for CC>350; will monitor and get Urology consult if persists 03/07- Continue plan Urology consult 03/08 mood is lousy...i've been miserable all my life.. pt says the pain is the same pt went to a couple groups but said she didn't get anything out of it. Talked about medications and pt says I think therapy is better than pills... despite lousy mood pt has given some thought about discharge...has showered, is now walking on her own and off 1:1, urinating on her own and not needing straight cath 03/09 Patient says I do not know when asked how she is doing which is somewhat of an improvement from yesterday. She remains out in the milieu, hanging around others though mostly keeping to herself. Walking fine, remains with no residual urine per bladder scan. Discussed aftercare and patient is amenable to day program -patient has improved somewhat but is still overall depressed; will give it another day or so. If she remains down will consider either increasing Cymbalta or retry and Wellbutrin 03/10 pt difficult with which to engage. On inquiry about mood she says i don't know.... She says SI is there a little and that it comes and goes but is fleeting. No change in pain; remains constipated. Does not notice Wellbutrin which is being re-tried. -that said, she remains out of her room, in the milue and though keeping to herself, is not isolating; walking around on her own well -will try once more to increase Gabapentin to address chronic pain; if not effective or not tolerated, may try lyrica 03/11 Patient again says I do not know to how she is feeling. Remains out of her room, attending groups but mostly keeping to herself. Agrees to titration of medications. Denies AVH 03/12 Wellbutrin was increased to 300; will see if this helps; if not will consider possible increase Cymbalta or try another category; will change clonazepam since though helps with anxiety seems to be making patient tired in the afternoon 03/13 Patient remains presenting depressed. Says her mood is lousy and affect downcast. Patient says she has a little SI and says that over the years it comes and goes and will flare at certain times. Discussed medication regimen and patient has never tried lithium but agrees to try it now since Wellbutrin has not seem to help much. -ECT? 03/14 Patient noticeably brighter today and more social, engaged, sitting and interacting with peers. She says her mood is ok which is an improvement. Patient told nurse that she was having trouble walking and needed assistance however nurse gently challenged patient having just witnessed her walking around the milieu without any trouble. Patient did not contest -Discussed risks/side effects of lithium and patient agrees to continue 03/15 Patient reports that today she is lousy though she overall remains more interactive. Patient agrees with increase of lithium. She asks if she could see a neurologist to see if she needs a brain scan and creative services writer discuss this. Patient is brother shared that patient used to be much more independent, living on her own, driving, holding down a job; however this was over a decade ago. She ended up living with her mother and patient's brother thinks she just got use to being taken care of. He says she has always been depressed for most of her life and was pretty lonely, never really had friends. Never got diagnosed with ASD but there was discussion of it. She did graduate high school he thinks in regular classes. 03/16 Patient reports that she is doing all right... And says she is without any SI and no longer thinking at all about overdosing on medication. Discussed lithium and she agrees to increase and to see if it is effective. -not sure what to make of intermittent visual hallucinations; they occur at night seemingly when she is waking or falling asleep. 03/18: Active on unit, keeping to self. attending groups. pt reports feeling depressed ; she reports suicidal ideation comes and goes . denies HI/AH. Pt reports visual hallucinations, reporting they are nothing violent ; she did not go into further detail. States she did not have nightmares last night; per nursing, slept 8 hours last night. Continue current tx plan. 03/23 remained stable, brighter; lithium level WNL; associated labs WNL. Patient engaged in dispo planning. Plan: CV Q 15 minute checks Increased to lithium ER 600 mg q.h.s.; creative services writer reviewed risks/side effects of this medication and she agrees DC Wellbutrin XL has not helped Continue gabapentin 200 mg t.i.d. for chronic pain (reviewed risks/side-effects) Lowered Clonazepam 0.25 mg b.i.d. for anxiety; has been on in the past Swich to PRN Cyclobenzaprine 10 mg t.i.d.prn (with p.r.n.; patient has been on as high doses 20 mg) Continue Cymbalta 60 mg DC fluoxetine famotidine 20 mg b.i.d.; patient says she has chronic GERD risperidone 3 mg q.h.s. prazosin 1 mg q.h.s. Cogentin 0.5 mg b.i.d. Ordered H pylori antigen stool test (patient has refused to comply); patient says she has had intractable GERD for a long time; has never been tested for H pylori Regarding Stollings, Risks, side-effects and benefits reviewed with pt, including, but not limited to, damage to kidneys and thyroid; pt was educated on symptoms of lithium toxicity (also discussed, including but not limited to gait, tremor, confusion) and the need to stay away from OTC NSAIDs (specifics reviewed) aside from Tylenol. Time Spent With Patient Time: Total time managing care of this patient today ____ minutes.
[2025-03-26] MEDS: Omeprazole 40 MG CAPSULE.DR PO (07:23)
[2025-03-26 08:00] VITALS: BP 95/51; PULSE 104; RESP 16; TEMP 37.1; O2SAT 94
--- NOTE | 2025-03-26 08:28 | P.DS_ITS ---
DS: Providers Provider Date of Service: 03/26/25 Date of admission: 02/19/25 12:24 Date of discharge: 03/26/25 Primary care physician: Unknown Physician Attending physician on admission: Alvaro López Consults: 02/28/25 18:02 Consult to Hospitalist Stat Comment: Consulting Provider[place] [facility] Reason For Exam: slurred speech, dizzy 03/02/25 14:02 Consult to Neurology Routine Consulting Provider: [facility] Reason for consultation: newly trouble walking? 03/04/25 16:02 Consult to Hospitalist Routine Comment: Consulting Provider[place] [facility] Reason For Exam: urinary retention 03/07/25 17:12 Consult to Urology Routine Consulting Provider: [facility] Reason for consultation: retention, straight cath q6>350 on scan Has provider been notified: No Attending physician on discharge: Alvaro López DS: Diagnosis Discharge Diagnosis (1) MDD (major depressive disorder), recurrent severe, without psychosis: Status: Acute (2) Anxiety: Status: Acute DS: Medications Discharge Medications Home Medications: Previous Rx's ?Medication ?Instructions ?Recorded acetaminophen 325 mg capsule 650 mg (2 x 325 mg) PO Q4H PRN 03/25/25 Fever Or Pain 30 days #180 caps benztropine 0.5 mg tablet 0.5 mg PO BID 30 days #60 tabs 03/25/25 clonazepam 0.5 mg tablet 0.25 mg (1/2 x 0.5 mg) PO 03/25/25 BID@0900,1400 30 days #30 tabs cyclobenzaprine 10 mg tablet 10 mg PO TID PRN muscle pain or 03/25/25 spasm 30 days #60 tabs docusate sodium 100 mg capsule 100 mg PO DAILY 30 days #30 caps 03/25/25 (Colace) duloxetine 60 mg capsule,delayed 60 mg PO DAILY 30 days #30 caps 03/25/25 release famotidine 20 mg tablet 20 mg PO BID 30 days #60 tabs 03/25/25 fluticasone propionate 50 2 spray intranasal DAILY 30 days 03/25/25 mcg/actuation nasal #16 grams spray,suspension gabapentin 100 mg capsule 200 mg (2 x 100 mg) PO TID 30 days 03/25/25 #180 caps hydrocortisone 2.5 % topical cream 1 appl ND Q6H PRN Hemorrhoids 30 03/25/25 with perineal applicator days #30 grams (Anusol-HC) lithium carbonate 300 mg 600 mg (2 x 300 mg) PO BEDTIME 30 03/25/25 tablet,extended release days #60 tabs loperamide 2 mg capsule 2 mg PO Q4H PRN Diarrhea 30 days 03/25/25 #30 caps loratadine 10 mg tablet 10 mg PO DAILY 30 days #30 tabs 03/25/25 omeprazole 40 mg capsule,delayed 40 mg PO BID@0630,1630 30 days #60 03/25/25 release caps ondansetron HCl 4 mg tablet 4 mg PO Q6H PRN Nausea And 03/25/25 Vomiting 30 days #30 tabs polyethylene glycol 3350 17 gram 17 g PO DAILY 30 days #30 ea 03/25/25 oral powder packet prazosin 1 mg capsule 1 mg PO BEDTIME 30 days #30 caps 03/25/25 risperidone 3 mg tablet 3 mg PO BEDTIME 30 days #30 tabs 03/25/25 sennosides 8.6 mg tablet (Senokot) 17.2 mg (2 x 8.6 mg) PO BEDTIME 30 03/25/25 days #60 tabs simvastatin 20 mg tablet 20 mg PO BEDTIME 30 days #30 tabs 03/25/25 Data Data Completed and Pending Completed studies during hospitalization [Text1]: 03/20/25 03/21/25 21:15 08:01 Sodium 142 Potassium 4.1 Chloride 105 Carbon Dioxide 26 Anion Gap 15 BUN 18 H Creatinine 0.93 Estim Creat Clear Calc 69.7 Estimated GFR > 60 Random Glucose 131 H Calcium 9.8 TSH 2.04 [place] 0.82 COVID-19 ([facility]) Negative COVID-19 Clin Com See Note 03/06/25 12:18 Urine Catheterized - Straight Catheter Urine Culture - Final No growth. 02/18/25 Unknown Urine Catheterized - Straight Catheter Urine Culture - Final Imaging Diagnostic Imaging Impressions Chest X-Ray 02/18/25 09:58 IMPRESSION: Mild interstitial edema and bilateral pleural effusions, small to moderate volume, similar to slightly worsened since prior exam. Electronically signed by: Hamlet Stephens MD 02/18/2025 10:42 AM EDT DS: Summary Time Spent with Patient Time attestation: Total time managing care of this patient today ____ minutes. Discharge Plan Discharge Anticipated Discharge Date/Time: 03/26/25 11:30 Patient Disposition: Home, Self-Care Discharge Diagnosis: MDD, recurrent, severe in partial remission Referrals: [facility] [Other] - 03/29/25 10:00 am (This appointment is for a tour and if you like the facility you can have the intake that day. Please bring with you, your social security card, insurance card, id and some health history including medication and diagnosis. ) [facility] Intake w Manjit Trevino [Other] - 03/31/25 2:00 pm [facility] Psyche Evaluation [Other] - 04/14/25 10:20 am (Telehealth with Mellisa Hartman) [facility] Med Mgmt w Mellisa Hartman [Other] - 05/10/25 9:20 am (Telehealth) Physician,Unknown J [Primary Care Provider] - 1 Week Discharge Medications: New loratadine 10 mg Tablet 10 mg PO DAILY 30 Days Qty: 30 0RF clonazepam 0.5 mg Tablet 0.25 mg PO BID@0900,1400 30 Days Qty: 30 0RF duloxetine 60 mg Capsule,Delayed Release(Dr/Ec) 60 mg PO DAILY 30 Days Qty: 30 0RF gabapentin 100 mg Capsule 200 mg PO TID 30 Days Qty: 180 0RF lithium carbonate 300 mg Tablet Extended Release 600 mg PO BEDTIME 30 Days Qty: 60 0RF famotidine 20 mg Tablet 20 mg PO BID 30 Days Qty: 60 0RF polyethylene glycol 3350 17 gram Powder In Packet 17 g PO DAILY 30 Days Qty: 30 0RF Rx Instructions: hold for loose stool Continued cyclobenzaprine 10 mg tablet 10 mg PO TID PRN (Reason: muscle pain or spasm) 30 Days Qty: 60 0RF sennosides [Senokot] 8.6 mg Tablet 17.2 mg PO BEDTIME 30 Days Qty: 60 0RF benztropine 0.5 mg tablet 0.5 mg PO BID 30 Days Qty: 60 0RF loperamide 2 mg Capsule 2 mg PO Q4H PRN (Reason: Diarrhea) 30 Days Qty: 30 0RF Rx Instructions: administer after each loose stool until symptoms controlled; do not exceed 8 mg per 24 hrs prazosin 1 mg capsule 1 mg PO BEDTIME 30 Days Qty: 30 0RF ondansetron HCl 4 mg Tablet 4 mg PO Q6H PRN (Reason: Nausea And Vomiting) 30 Days Qty: 30 0RF omeprazole 40 mg Capsule,Delayed Release(Dr/Ec) 40 mg PO BID@0630,1630 30 Days Qty: 60 0RF risperidone 3 mg tablet 3 mg PO BEDTIME 30 Days Qty: 30 0RF hydrocortisone [Anusol-HC] 2.5 % Cream With Perineal Applicator 1 appl ND Q6H PRN (Reason: Hemorrhoids) 30 Days Qty: 30 0RF simvastatin 20 mg tablet 20 mg PO BEDTIME 30 Days Qty: 30 0RF docusate sodium [Colace] 100 mg Capsule 100 mg PO DAILY 30 Days Qty: 30 0RF fluticasone propionate 50 mcg/actuation [place],Suspension 2 spray INTRANASAL DAILY 30 Days Qty: 16 0RF Rx Instructions: administer into each nostril acetaminophen 325 mg Capsule 650 mg PO Q4H PRN (Reason: Fever Or Pain) 30 Days Qty: 180 0RF Discontinued fluoxetine 20 mg capsule 20 mg PO DAILY naproxen 500 mg tablet 500 mg PO BID PRN (Reason: Pain (Scale Score 1-3)) lubiprostone [Amitiza] 24 mcg capsule 24 mcg PO BEDTIME magnesium hydroxide [Milk of Magnesia] 400 mg/5 mL Suspension 30 ml PO DAILY PRN (Reason: Constipation) Discharge Orders: Discharge Order (Routine); Ordered 03/26/25 Ordered By: Alvaro López Diet: Regular diet Activity on Discharge: As tolerated Stand Alone Forms: Patient Portal Discharge page Print Language: Slovenian Care Plan Goals: Maintain mood and safe behaviors Take medications as prescribed Practice coping skills Continue with outpatient providers and reach out to them as needed Health Concerns: Mood stability and behaviors Chronic joint/body pain Chronic constipation Hyperlipidemia Plan of Treatment: Follow up with your PCP, psychiatric provider and other outpatient providers regarding above concerns Take medications as prescribed Assessment: Risk assessment at time of discharge:? Patient was interviewed prior to discharge and found to be fully oriented and without any SI or HI. Patient has improved insight and judgment and wants to continue treatment. Patient is not in imminent risk of harm to self or others and has a safety plan that includes presenting to the closest ER or calling 911 if feeling unsafe.? Patient has been observed closely by nursing and unit staff throughout admission; patient has not engaged in any behaviors that suggest dangerousness to self or others and has demonstrated appropriate behaviors and impulse control
[2025-03-26] MEDS: DULoxetine HCl 60 MG CAPSULE.DR PO (08:57)
[2025-03-26] MEDS: Atorvastatin Calcium 10 MG TABLET PO (08:57)
[2025-03-26] MEDS: Fluticasone Propionate Nasal 16 GM SPRAY 2 SPRAY NOSTRIL-B (08:57)
[2025-03-26] MEDS: Loratadine 10 MG TABLET PO (08:57)
[2025-03-26] MEDS: Benztropine Mesylate 0.5 MG TABLET PO (08:57)
[2025-03-26] MEDS: clonazePAM 0.5 MG TABLET 0.25 MG PO (08:57)
[2025-03-26] MEDS: Gabapentin 100 MG CAPSULE 200 MG PO (08:58)
[2025-03-26] MEDS: Famotidine 20 MG TABLET PO (08:58)
[2025-03-26] MEDS: polyethylene glycoL 3350 17 GM POWD.PACK PO (08:59)
== END 2025-03-26 11:36 | disposition home or self-care (01) | DRG 885 ==
LOC: HO.ED 13:22 → HO.PM5 02-19 12:38
PROVIDERS: Physician Assistant Medical; Psychiatry & Neurology Psychiatry; Admitting Provider Clinical Nurse Specialist Psychiatric/Mental Health, Adult; Emergency Provider Emergency Medicine; Visit Provider Psychiatry & Neurology Psychiatry
DX: F33.2 Major depressive disorder, recurrent severe without psychotic features (principal); R45.851 Suicidal ideations; G20.B1 Parkinson's disease with dyskinesia, without mention of fluctuations; R33.9 Retention of urine, unspecified; F41.9 Anxiety disorder, unspecified; Z20.822 Contact with and (suspected) exposure to COVID-19; Z91.199 Patient's noncompliance with other medical treatment and regimen due to unspecified reason; Z79.51 Long term (current) use of inhaled steroids; Z79.899 Other long term (current) drug therapy
CPT/HCPCS: 0241U; 36415; 70450; 71046; 73502; 74018; 80048; 80053; 80061; 80178; 80307; 81001; 82140; 82607; 82746; 83036; 83690; 83735; 83880; 84439; 84443; 84484; 85025; 85379; 87086; 87338; 87635; 93005; 97161; 99285; S9485

== ENCOUNTER → 2025-02-18 07:54 | Outpatient (BNV) | payer OTHER, SELFPAY | PROVIDERS: Emergency Provider Emergency Medicine; Visit Provider Internal Medicine | DX: I45.10 Unspecified right bundle-branch block (principal) | CPT/HCPCS: 93010 ==

== ENCOUNTER → 2025-02-18 09:58 | Outpatient (BNV) | payer OTHER, SELFPAY | PROVIDERS: Emergency Provider Emergency Medicine; Visit Provider Radiology Diagnostic Radiology | DX: R06.02 Shortness of breath (principal) | CPT/HCPCS: 71046 ==

== ENCOUNTER 2025-02-19 12:24 | Outpatient (BNV) | payer OTHER, SELFPAY | END 2025-02-28 11:00 | PROVIDERS: Admitting Provider Clinical Nurse Specialist Psychiatric/Mental Health, Adult; Emergency Provider Emergency Medicine; Visit Provider Radiology Diagnostic Radiology | DX: F99 Mental disorder, not otherwise specified (principal); M25.552 Pain in left hip | CPT/HCPCS: 70450; 73502 ==

== ENCOUNTER 2025-02-19 12:24 | Outpatient (BNV) | payer OTHER, SELFPAY | END 2025-02-28 15:23 | PROVIDERS: Admitting Provider Clinical Nurse Specialist Psychiatric/Mental Health, Adult; Emergency Provider Emergency Medicine; Visit Provider Internal Medicine | DX: R42 Dizziness and giddiness (principal) | CPT/HCPCS: 93010 ==

== ENCOUNTER → 2025-02-19 12:24 | Outpatient (BNV) | payer OTHER, SELFPAY | PROVIDERS: Admitting Provider Clinical Nurse Specialist Psychiatric/Mental Health, Adult; Emergency Provider Emergency Medicine; Visit Provider Student in an Organized Health Care Education/Training Program | DX: R33.9 Retention of urine, unspecified (principal) | CPT/HCPCS: 99221; 99499 ==

== ENCOUNTER → 2025-02-19 12:24 | Outpatient (BNV) | payer OTHER, SELFPAY | PROVIDERS: Admitting Provider Clinical Nurse Specialist Psychiatric/Mental Health, Adult; Emergency Provider Emergency Medicine; Visit Provider Psychiatry & Neurology Neurology | DX: R26.9 Unspecified abnormalities of gait and mobility (principal) | CPT/HCPCS: 99222 ==

== ENCOUNTER → 2025-02-19 12:24 | Outpatient (BNV) | payer OTHER, SELFPAY | PROVIDERS: Admitting Provider Clinical Nurse Specialist Psychiatric/Mental Health, Adult; Emergency Provider Emergency Medicine; Visit Provider Psychiatry & Neurology Psychiatry | DX: F33.2 Major depressive disorder, recurrent severe without psychotic features (principal); F41.9 Anxiety disorder, unspecified | CPT/HCPCS: 90792; 99232 ==